=== PATIENT | female | born 1980 | race Caucasian/White ===

== ENCOUNTER 2020-09-29 16:44 | Emergency (ER) | payer SELFPAY ==
[2020-09-29] MEDS: HALOPERIDOL 5 MG/ML VIAL 10 MG IM (17:04)
[2020-09-29] MEDS: LORazepam 2 MG/ML INJ IM (17:05)
[2020-09-29] MEDS: diphenhydrAMINE 50 MG/ML VIAL IM (17:05)
[2020-09-29 17:18] VITALS: BP 99/54; PULSE 75; RESP 18; TEMP 37.1; O2SAT 97
[2020-09-29 17:22] LABS: Add Manual Diff / Slide Review NO; Basophils Absolute Auto 100 /uL (0-100); Basophils Percent Auto 0.9 % (0-2); Eosinophils Absolute Auto 200 /uL (0-450); Eosinophils Percent Auto 2.3 % (2-4); Hematocrit 37.4 % (36-46); Hemoglobin 12.4 g/dL (12.0-16.0); Lymphocytes Absolute Auto 2000 /uL (1100-4500); Lymphocytes Percent Auto 29.6 % (25-40); Mean Corpuscular HGB Conc 33.2 % (30-36); Mean Corpuscular Hemoglobin 29.5 PG (26-34); Monocytes Absolute Auto 400 /uL (0-900); Monocytes Percent Auto 6.6 % (3-14); Neutrophils Absolute Auto 4100 /uL (1500-7000); Neutrophils Percent Auto 60.6 % (50-75); Platelet Count 407 X10^3/uL (150-400); Red Cell Distribution Width 14.2 % (11.6-14.8); White Blood Cell Count 6.8 X10^3/uL (4.5-11.0)
[2020-09-29 17:26] LABS: UR Morphine/Opiate cutoff 300 Negative (Negative); Ur Creatinine Normal (Normal); Ur Specific Gravity Normal (Normal); Urine Amphetamines Positive (Negative); Urine Barbiturates Negative (Negative); Urine Benzodiazepines Negative (Negative); Urine Cocaine Negative (Negative); Urine MDMA Negative (Negative); Urine Methadone Negative (Negative); Urine Methamphetamines Positive (Negative); Urine Oxycodone Negative (Negative); Urine Phencyclidine Negative (Negative); Urine Tetrahydrocannabinol Negative (Negative); Urine Tricyclic Antidepressant Negative (Negative); Urine pH Normal (Normal)
[2020-09-29 17:34] LABS: Acetaminophen < 10 ug/mL (10-30); Alanine Aminotransferase 29 IU/L (<35); Albumin 4.1 g/dL (3.5-5.0); Albumin Globulin Ratio 1.4 (1.0-2.8); Alkaline Phosphatase 68 U/L (38-126); Aspartate Aminotransferase 38 IU/L (14-36); BUN Creatinine Ratio 29.5 (6-22); Bilirubin Total 0.7 mg/dL (0.2-1.3); Blood Urea Nitrogen 18 mg/dL (7-17); Calcium 9.1 mg/dL (8.4-10.2); Carbon Dioxide 26 mmol/L (22-32); Chloride 107 mmol/L (98-107); Estimated Glomerular Filt Rate > 60.0 mL/min (>60); Ethanol (ETOH) < 10 mg/dL; Globulin 2.9 g/dL (1.7-4.1); Glucose 111 mg/dL (70-100); HEMOLYSIS < 15 (0-50); Potassium 4.2 mmol/L (3.4-5.1); Salicylate < 1.0 mg/dL (<20); Sodium 139 mmol/L (137-145)
--- NOTE | 2020-09-29 17:46 | PC.NURSE ---
Pt continued to yell in room unitelligable, jumping around, eyes were unfocused and difficult to gain her attention. Disoriented to time but oriented to place hospital in [place] and person. Medicated w/ benedryl, haldol and ativan for patient safety. Currently laying on left side, easy work of breathing, pink/warm/dry.
[2020-09-29 17:50] LABS: Free T4, Direct Thyroxine 0.96 ng/dL (0.78-2.19)
[2020-09-29 18:04] LABS: Thyroid Stimulating Hormone 4.19 uIU/mL (0.47-4.68)
[2020-09-29 18:06] LABS: COVID19 -Nasal RAPID Negative (Negative)
--- NOTE | 2020-09-29 21:11 | PC.NURSE ---
DCR here speaking with pt
--- NOTE | 2020-09-29 21:16 | ED_ITS ---
HPI - General Adult <Isaiah Capps DO - Last Filed: 09/30/20 18:52> General Chief complaint: Altered Mental Status Stated complaint: Psych Eval Time Seen by Provider: 09/29/20 16:52 Source: police Mode of arrival: other History of Present Illness HPI narrative: Patient is a 40-year-old female. She is well known in the community. She has a history of schizophrenia. Is homeless. Is frequently seen walking around the town. Patient was brought to the emergency department today by police after they were called because the patient has been running in and out of traffic today. Has a known history of drug abuse specifically methamphetamine. Upon arrival patient was combative. Per the provider who initially saw her she was doing ?karate moves ?in the exam room. Due to the patient's clinical presentation it was felt that she needed sedation. Patient did seem to be directable in she stated that she was okay with receiving medications. She received Benadryl house on Ativan. Subsequently laid down in the room and has been sleeping. Related Data Home Medications Medication Instructions Recorded Confirmed Unobtainable 09/29/20 09/29/20 Allergies Allergy/AdvReac Type Severity Reaction Status Date / Time No Allergy Information Allergy Verified 09/29/20 16:51 Available Review of Systems <Isaiah Capps DO - Last Filed: 09/30/20 18:52> Review of Systems ROS Unobtainable: Unobtainable due to mental condition Patient History <Isaiah Capps DO - Last Filed: 09/30/20 18:52> Medical History Drug abuse Schizophrenia Social History Smoking Status: Smoker, status unknown Smoking Status: Smoker, status unknown alcohol intake frequency: other Substance Use Type: unknown Exam <Isaiah Capps DO - Last Filed: 09/30/20 18:52> Initial Vital Signs Initial Vital Signs: Vital Signs Temperature 98.8 F 09/29/20 17:18 Pulse Rate 75 09/29/20 17:18 Respiratory Rate 18 09/29/20 17:18 Blood Pressure 99/54 L 09/29/20 17:18 Pulse Oximetry 97 09/29/20 17:18 Const General: combative and disheveled HENMT Head: normal to inspection and normocephalic Resp Effort & Inspection: normal respiratory effort Cardio Rate: regular rate GI Inspection: normal to inspection Skin Other: Dirty Neuro General: patient awake and moves all extremities Extrem General: normal to inspection Psych Appearance: disheveled Speech and Movement: restless Mood: manic mood and labile mood Affect: animated <Kaela Watkins DO - Last Filed: 09/30/20 11:14> Initial Vital Signs Initial Vital Signs: Vital Signs Temperature 98.8 F 09/29/20 17:18 Pulse Rate 75 09/29/20 17:18 Respiratory Rate 18 09/29/20 17:18 Blood Pressure 99/54 L 09/29/20 17:18 Pulse Oximetry 97 09/29/20 17:18 Course <Isaiah Capps DO - Last Filed: 09/30/20 18:52> Orders Ordered: Discontinued Medications Diphenhydramine HCl (Diphenhydramine 50 Mg/Ml Vial) 50 mg IM NOW ONE Stop: 09/29/20 16:56 Last Admin: 09/29/20 17:05 Dose: 50 mg Documented by: AZEB Haloperidol (Haloperidol 5 Mg/Ml Vial) 10 mg IM NOW ONE Stop: 09/29/20 16:56 Last Admin: 09/29/20 17:04 Dose: 10 mg Documented by: AZEB Lorazepam (Lorazepam 2 Mg/Ml Inj) 2 mg IM NOW ONE Stop: 09/29/20 16:56 Last Admin: 09/29/20 17:05 Dose: 2 mg Documented by: AZEB Vital Signs Vital signs: Vital Signs - 8 hr 09/30/20 10:11 Pulse Rate 74 Respiratory Rate 14 Blood Pressure 121/74 Pulse Oximetry 95 <Kaela Watkins DO - Last Filed: 09/30/20 11:14> Orders Ordered: Discontinued Medications Diphenhydramine HCl (Diphenhydramine 50 Mg/Ml Vial) 50 mg IM NOW ONE Stop: 09/29/20 16:56 Last Admin: 09/29/20 17:05 Dose: 50 mg Documented by: AZEB Haloperidol (Haloperidol 5 Mg/Ml Vial) 10 mg IM NOW ONE Stop: 09/29/20 16:56 Last Admin: 09/29/20 17:04 Dose: 10 mg Documented by: AZEB Lorazepam (Lorazepam 2 Mg/Ml Inj) 2 mg IM NOW ONE Stop: 09/29/20 16:56 Last Admin: 09/29/20 17:05 Dose: 2 mg Documented by: AZEB Vital Signs Vital signs: Vital Signs - 8 hr 09/30/20 10:11 Pulse Rate 74 Respiratory Rate 14 Blood Pressure 121/74 Pulse Oximetry 95 Medical Decision Making <Isaiah Capps DO - Last Filed: 09/30/20 18:52> Lab Data Result diagrams: 09/29/20 17:12 09/29/20 17:12 Labs: Lab Results 09/29/20 09/29/20 09/29/20 Range/Units 16:51 17:12 17:12 WBC 6.8 (4.5-11.0) X10^3/uL RBC 4.20 (4.0-5.2) X10^6/uL Hgb 12.4 (12.0-16.0) g/dL Hct 37.4 (36-46) % MCV 89.0 (80-100) fL MCH 29.5 (26-34) PG MCHC 33.2 (30-36) % RDW 14.2 (11.6-14.8) % Plt Count 407 H (150-400) X10^3/uL Neut % (Auto) 60.6 (50-75) % Lymph % (Auto) 29.6 (25-40) % [place] % (Auto) 6.6 (3-14) % Eos % (Auto) 2.3 (2-4) % Baso % (Auto) 0.9 (0-2) % Neut # (Auto) 4100 (8749-7794) /uL Lymph # (Auto) 2000 (2819-7840) /uL [place] # (Auto) 400 (0-900) /uL Eos # (Auto) 200 (0-450) /uL Baso # (Auto) 100 (0-100) /uL Sodium 139 (137-145) mmol/L Potassium 4.2 (3.4-5.1) mmol/L Chloride 107 (98-107) mmol/L Carbon Dioxide 26 (22-32) mmol/L BUN 18 H (7-17) mg/dL Creatinine 0.61 (0.52-1.04) mg/dL Estimated GFR > 60.0 (>60) mL/min BUN/Creatinine Ratio 29.5 H (6-22) Glucose 111 H (70-100) mg/dL Calcium 9.1 (8.4-10.2) mg/dL Total Bilirubin 0.7 (0.2-1.3) mg/dL AST 38 H (14-36) IU/L ALT 29 (<35) IU/L Alkaline Phosphatase 68 (38-126) U/L Total Protein 7.0 (6.3-8.2) g/dL Albumin 4.1 (3.5-5.0) g/dL Globulin 2.9 (1.7-4.1) g/dL Albumin/Globulin Ratio 1.4 (1.0-2.8) TSH (0.47-4.68) uIU/mL Free T4 (0.78-2.19) ng/dL Salicylates < 1.0 (<20) mg/dL U Opiates 300ng/mL cut Negative (Negative) Ur Oxycodone Screen Negative (Negative) Urine Methadone Screen Negative (Negative) Acetaminophen < 10 L (10-30) ug/mL Ur Barbiturates Screen Negative (Negative) U Tricyclic Antidepress Negative (Negative) Ur Phencyclidine Scrn Negative (Negative) Ur Amphetamines Screen Positive H (Negative) U Methamphetamines Scrn Positive H (Negative) Ur MDMA Scrn (Ecstasy) Negative (Negative) U Benzodiazepines Scrn Negative (Negative) Urine Cocaine Screen Negative (Negative) U Marijuana (THC) Screen Negative (Negative) Ethyl Alcohol < 10 ( - 10) mg/dL SARS-CoV-2 (PCR) (Negative) 09/29/20 09/29/20 Range/Units 17:12 17:40 WBC (4.5-11.0) X10^3/uL RBC (4.0-5.2) X10^6/uL Hgb (12.0-16.0) g/dL Hct (36-46) % MCV (80-100) fL MCH (26-34) PG MCHC (30-36) % RDW (11.6-14.8) % Plt Count (150-400) X10^3/uL Neut % (Auto) (50-75) % Lymph % (Auto) (25-40) % [place] % (Auto) (3-14) % Eos % (Auto) (2-4) % Baso % (Auto) (0-2) % Neut # (Auto) (4468-3698) /uL Lymph # (Auto) (2812-0000) /uL [place] # (Auto) (0-900) /uL Eos # (Auto) (0-450) /uL Baso # (Auto) (0-100) /uL Sodium (137-145) mmol/L Potassium (3.4-5.1) mmol/L Chloride (98-107) mmol/L Carbon Dioxide (22-32) mmol/L BUN (7-17) mg/dL Creatinine (0.52-1.04) mg/dL Estimated GFR (>60) mL/min BUN/Creatinine Ratio (6-22) Glucose (70-100) mg/dL Calcium (8.4-10.2) mg/dL Total Bilirubin (0.2-1.3) mg/dL AST (14-36) IU/L ALT (<35) IU/L Alkaline Phosphatase (38-126) U/L Total Protein (6.3-8.2) g/dL Albumin (3.5-5.0) g/dL Globulin (1.7-4.1) g/dL Albumin/Globulin Ratio (1.0-2.8) TSH 4.19 (0.47-4.68) uIU/mL Free T4 0.96 (0.78-2.19) ng/dL Salicylates (<20) mg/dL U Opiates 300ng/mL cut (Negative) Ur Oxycodone Screen (Negative) Urine Methadone Screen (Negative) Acetaminophen (10-30) ug/mL Ur Barbiturates Screen (Negative) U Tricyclic Antidepress (Negative) Ur Phencyclidine Scrn (Negative) Ur Amphetamines Screen (Negative) U Methamphetamines Scrn (Negative) Ur MDMA Scrn (Ecstasy) (Negative) U Benzodiazepines Scrn (Negative) Urine Cocaine Screen (Negative) U Marijuana (THC) Screen (Negative) Ethyl Alcohol ( - 10) mg/dL SARS-CoV-2 (PCR) Negative (Negative) Point of Care Testing Test Results Negative Urine Dip Bedside Urine Glucose Negative Bedside Urine Bilirubin - Negative Bedside Urine Ketone - Negative Urine Specific [place] 1.025 Bedside Urine Occult Blood - Negative Bedside Urine pH 6.5 Bedside Urine Protein - Negative Bedside Urine Urobilinogen - Negative Bedside Urine Nitrite - Negative Bedside Urine Leukocytes - Negative Esterase Point of care testing: Point of Care Testing Test Results Negative Urine Dip Bedside Urine Glucose Negative Bedside Urine Bilirubin - Negative Bedside Urine Ketone - Negative Urine Specific [place] 1.025 Bedside Urine Occult Blood - Negative Bedside Urine pH 6.5 Bedside Urine Protein - Negative Bedside Urine Urobilinogen - Negative Bedside Urine Nitrite - Negative Bedside Urine Leukocytes - Negative Esterase MDM Narrative Medical decision making narrative: Patient's urine drug screen is positive for methamphetamine. She has been calm since receiving the medications. She is medically cleared. No respiratory distress. No signs of trauma. The patient has remained calm and has been sleeping. We did discuss the case with DCR. Given the fact that she had methamphetamine in her urine they requested that the patient be observed overnight and re-evaluated in the morning to see if she would still require evaluation. We also discussed the possibility of using Wilmer's law given her current situation however after discussion with the DCR it was determined that since there are no prior encounters for this patient and there has not been a ?pattern ?of substance abuse causing multiple ED visits that she would not be a candidate for this. Care turned over to Dr. Watkins to follow-up and disposition. <Kaela Watkins, DO - Last Filed: 09/30/20 11:14> Lab Data Labs: Lab Results 09/29/20 09/29/20 09/29/20 Range/Units 16:51 17:12 17:12 WBC 6.8 (4.5-11.0) X10^3/uL RBC 4.20 (4.0-5.2) X10^6/uL Hgb 12.4 (12.0-16.0) g/dL Hct 37.4 (36-46) % MCV 89.0 (80-100) fL MCH 29.5 (26-34) PG MCHC 33.2 (30-36) % RDW 14.2 (11.6-14.8) % Plt Count 407 H (150-400) X10^3/uL Neut % (Auto) 60.6 (50-75) % Lymph % (Auto) 29.6 (25-40) % [place] % (Auto) 6.6 (3-14) % Eos % (Auto) 2.3 (2-4) % Baso % (Auto) 0.9 (0-2) % Neut # (Auto) 4100 (2822-8004) /uL Lymph # (Auto) 2000 (6840-1978) /uL [place] # (Auto) 400 (0-900) /uL Eos # (Auto) 200 (0-450) /uL Baso # (Auto) 100 (0-100) /uL Sodium 139 (137-145) mmol/L Potassium 4.2 (3.4-5.1) mmol/L Chloride 107 (98-107) mmol/L Carbon Dioxide 26 (22-32) mmol/L BUN 18 H (7-17) mg/dL Creatinine 0.61 (0.52-1.04) mg/dL Estimated GFR > 60.0 (>60) mL/min BUN/Creatinine Ratio 29.5 H (6-22) Glucose 111 H (70-100) mg/dL Calcium 9.1 (8.4-10.2) mg/dL Total Bilirubin 0.7 (0.2-1.3) mg/dL AST 38 H (14-36) IU/L ALT 29 (<35) IU/L Alkaline Phosphatase 68 (38-126) U/L Total Protein 7.0 (6.3-8.2) g/dL Albumin 4.1 (3.5-5.0) g/dL Globulin 2.9 (1.7-4.1) g/dL Albumin/Globulin Ratio 1.4 (1.0-2.8) TSH (0.47-4.68) uIU/mL Free T4 (0.78-2.19) ng/dL Salicylates < 1.0 (<20) mg/dL U Opiates 300ng/mL cut Negative (Negative) Ur Oxycodone Screen Negative (Negative) Urine Methadone Screen Negative (Negative) Acetaminophen < 10 L (10-30) ug/mL Ur Barbiturates Screen Negative (Negative) U Tricyclic Antidepress Negative (Negative) Ur Phencyclidine Scrn Negative (Negative) Ur Amphetamines Screen Positive H (Negative) U Methamphetamines Scrn Positive H (Negative) Ur MDMA Scrn (Ecstasy) Negative (Negative) U Benzodiazepines Scrn Negative (Negative) Urine Cocaine Screen Negative (Negative) U Marijuana (THC) Screen Negative (Negative) Ethyl Alcohol < 10 ( - 10) mg/dL SARS-CoV-2 (PCR) (Negative) 09/29/20 09/29/20 Range/Units 17:12 17:40 WBC (4.5-11.0) X10^3/uL RBC (4.0-5.2) X10^6/uL Hgb (12.0-16.0) g/dL Hct (36-46) % MCV (80-100) fL MCH (26-34) PG MCHC (30-36) % RDW (11.6-14.8) % Plt Count (150-400) X10^3/uL Neut % (Auto) (50-75) % Lymph % (Auto) (25-40) % [place] % (Auto) (3-14) % Eos % (Auto) (2-4) % Baso % (Auto) (0-2) % Neut # (Auto) (7484-0111) /uL Lymph # (Auto) (5834-3171) /uL [place] # (Auto) (0-900) /uL Eos # (Auto) (0-450) /uL Baso # (Auto) (0-100) /uL Sodium (137-145) mmol/L Potassium (3.4-5.1) mmol/L Chloride (98-107) mmol/L Carbon Dioxide (22-32) mmol/L BUN (7-17) mg/dL Creatinine (0.52-1.04) mg/dL Estimated GFR (>60) mL/min BUN/Creatinine Ratio (6-22) Glucose (70-100) mg/dL Calcium (8.4-10.2) mg/dL Total Bilirubin (0.2-1.3) mg/dL AST (14-36) IU/L ALT (<35) IU/L Alkaline Phosphatase (38-126) U/L Total Protein (6.3-8.2) g/dL Albumin (3.5-5.0) g/dL Globulin (1.7-4.1) g/dL Albumin/Globulin Ratio (1.0-2.8) TSH 4.19 (0.47-4.68) uIU/mL Free T4 0.96 (0.78-2.19) ng/dL Salicylates (<20) mg/dL U Opiates 300ng/mL cut (Negative) Ur Oxycodone Screen (Negative) Urine Methadone Screen (Negative) Acetaminophen (10-30) ug/mL Ur Barbiturates Screen (Negative) U Tricyclic Antidepress (Negative) Ur Phencyclidine Scrn (Negative) Ur Amphetamines Screen (Negative) U Methamphetamines Scrn (Negative) Ur MDMA Scrn (Ecstasy) (Negative) U Benzodiazepines Scrn (Negative) Urine Cocaine Screen (Negative) U Marijuana (THC) Screen (Negative) Ethyl Alcohol ( - 10) mg/dL SARS-CoV-2 (PCR) Negative (Negative) Point of Care Testing Test Results Negative Urine Dip Bedside Urine Glucose Negative Bedside Urine Bilirubin - Negative Bedside Urine Ketone - Negative Urine Specific [place] 1.025 Bedside Urine Occult Blood - Negative Bedside Urine pH 6.5 Bedside Urine Protein - Negative Bedside Urine Urobilinogen - Negative Bedside Urine Nitrite - Negative Bedside Urine Leukocytes - Negative Esterase Point of care testing: Point of Care Testing Test Results Negative Urine Dip Bedside Urine Glucose Negative Bedside Urine Bilirubin - Negative Bedside Urine Ketone - Negative Urine Specific [place] 1.025 Bedside Urine Occult Blood - Negative Bedside Urine pH 6.5 Bedside Urine Protein - Negative Bedside Urine Urobilinogen - Negative Bedside Urine Nitrite - Negative Bedside Urine Leukocytes - Negative Esterase MDM Narrative Medical decision making narrative: Patient's urine drug screen is positive for methamphetamine. She has been calm since receiving the medications. She is medically cleared. No respiratory distress. No signs of trauma. The patient has remained calm and has been sleeping. We did discuss the case with DCR. Given the fact that she had methamphetamine in her urine they requested that the patient be observed overnight and re-evaluated in the morning to see if she would still require evaluation. We also discussed the possibility of using Wilmer's law given her current situation however after discussion with the DCR it was determined that since there are no prior encounters for this patient and there has not been a ?pattern ?of substance abuse causing multiple ED visits that she would not be a candidate for this. Care turned over to Dr. Watkins to follow-up and disposition. Dr. Watkins-attempted to wake the patient but still sleeping. The patient woke up. She eating breakfast. At is feeling overall better. She is offered community sources and detox options however she declines at this time and would just like to go. She denies any suicidal or homicidal ideation Discharge Plan Departure Patient Disposition: Home Clinical Impression: Methamphetamine abuse Instructions: DI for Substance Use Disorder Activity Restrictions/Additional Instructions: *You have been diagnosed with methamphetamine be *What to do: At this time methamphetamine is not likely helping schizophrenia. *Continue to take medications as directed *Follow up with your primary care provider in 2-3 days *Return to ER if you should have hallucination, thoughts of suicide [or] any new, worsening or concerning symptoms Prescriptions: No Action Unobtainable RF: 0 Referrals: Ele Rodgers MD [Primary Care Provider] -
[2020-09-29 22:17] VITALS: BP 97/51; PULSE 66; RESP 18; TEMP 36.7; O2SAT 99
--- NOTE | 2020-09-29 22:25 | PC.NURSE ---
NIMISHA called and arranged a DCR rep to be sent to [facility]. Spoke with Cassidy
--- NOTE | 2020-09-30 02:16 | PC.NURSE ---
Called [facility] with questions about Wilmer law. [facility] stated They can put in for request for wilmer law and DCR will come make the decision. Placed request for pt to be evaluated for wilmer's law
--- NOTE | 2020-09-30 10:00 | PC.NURSE ---
Pt arousable to voice, breakfast reheated and coffee given per pt request. Pt calm, appropriate, interactive, sitting in bed eating.
--- NOTE | 2020-09-30 10:10 | PC.NURSE ---
Dr. Watkins at bedside to medically clear pt and discharge
[2020-09-30 10:11] VITALS: BP 121/74; PULSE 74; RESP 14; O2SAT 95
== END 2020-09-30 10:14 | disposition home or self-care (01) ==
PROVIDERS: Emergency Provider Emergency Medicine; Family Provider Family Medicine; PCP Family Medicine
DX: F15.10 Other stimulant abuse, uncomplicated (principal); Z20.822 Contact with and (suspected) exposure to COVID-19
CPT/HCPCS: 36415; 80053; 80305; 80320; 80329; 81003; 81025; 84439; 84443; 85025; 87635; 96372; 99284; C9803; G0480; J1200; J1630; J2060

== ENCOUNTER 2021-08-10 19:15 | Emergency (ER) | payer OTHER, MEDICAID, SELFPAY ==
--- NOTE | 2021-08-10 19:05 | PC.NURSE ---
Pt brought in by EMS for pt requested eval following meth use. Pt has Hx of schizophrenia. Pt arrives to ER yelling and frantically waving her arms. Pt repeatedly yelling let me go. I need meds now! I don't feel safe! I don't feel fucking safe!. Pt unable to follow even simple directions from staff and is walking in and out of her room. ER providers at bedside of pt, security present as well. Pt not able to calm down despite various de-escalation modalities being used. Pt was offered PO medications for anxiety but refused. Pt to be given IM injection to de-escalate.
[2021-08-10] MEDS: diphenhydrAMINE 50 MG/ML VIAL IM (19:14)
[2021-08-10] MEDS: LORazepam 2 MG/ML INJ IM (19:14)
[2021-08-10] MEDS: HALOPERIDOL 5 MG/ML VIAL IM (19:14)
--- NOTE | 2021-08-10 19:14 | PC.NURSE ---
Given IM left VL B52. Administered by Precious THOMPSON
--- NOTE | 2021-08-10 19:41 | ED_ITS ---
HPI - Psych General Chief Complaint: Psychiatric Symptoms Stated Complaint: psych Time Seen by Provider: 08/10/21 19:26 Source: EMS Mode of arrival: EMS History of Present Illness HPI Narrative: 41-year-old female with a known history of smoking or drinking but known history of mental health and substance abuse presents by EMS after they were contacted for this patient that was acting abnormally. She has a very poor historian and is yelling, screaming with auditory and visual hallucinations and pacing. She is afraid that people are trying to kill her. She denies any recent injury. She denies the use of any alcohol, street drugs. It is unknown if she has been taking any of her medications. She does not respond when asked about suicidal or homicidal ideation. She is speaking rapidly, and unable to redirect, she keeps trying to leave the room Related Data Home Medications Medication Instructions Recorded Confirmed Unobtainable 09/29/20 09/29/20 Allergies Allergy/AdvReac Type Severity Reaction Status Date / Time No Allergy Information Allergy Verified 09/29/20 16:51 Available Review of Systems Review of Systems ROS Unobtainable: Unobtainable due to mental condition Patient History Medical History Drug abuse Schizophrenia Social History Smoking Status: Smoker, status unknown Smoking Status: Smoker, status unknown alcohol intake frequency: other Substance Use Type: methamphetamine and unknown Exam Narrative Exam Narrative: GENERAL: [41 year old patient appears stated age. Slightly disheveled, foul- smelling, pacing in the room, rapid nonsensical speech, unable to redirect HEAD: Atraumatic. Normocephalic. EYES: Pupils equal round and reactive. Extraocular motions intact. No scleral icterus. No injection or drainage. ENT: Nose without bleeding, purulent drainage. Throat without erythema, tonsillar hypertrophy or exudate. Airway patent. NECK: Trachea midline. Non tender CARDIOVASCULAR: Regular rate and rhythm without murmurs, gallops, or rubs. RESPIRATORY: Clear to auscultation. Breath sounds equal bilaterally. No wheezes, rales, or rhonchi. GASTROINTESTINAL: Abdomen soft, non-tender, nondistended. EXTREMITIES: No edema or joint tenderness. BACK: Nontender without deformity or crepitance. No flank tenderness. NEURO: Cranial nerves 2-12 grossly intact SKIN: No rash or erythema of visible areas Initial Vital Signs Initial Vital Signs: Vital Signs Respiratory Rate 08/10/21 19:43 Course Orders Ordered: Discontinued Medications Diphenhydramine HCl (Diphenhydramine 50 Mg/Ml Vial) 50 mg IM NOW ONE Stop: 08/10/21 19:08 Last Admin: 08/10/21 19:14 Dose: 50 mg Documented by: SHIRLEY Haloperidol (Haloperidol 5 Mg/Ml Vial) 5 mg IM NOW ONE Stop: 08/10/21 19:08 Last Admin: 08/10/21 19:14 Dose: 5 mg Documented by: SHIRLEY Lorazepam (Lorazepam 2 Mg/Ml Inj) 2 mg IM NOW ONE Stop: 08/10/21 19:08 Last Admin: 08/10/21 19:14 Dose: 2 mg Documented by: SHIRLEY Vital Signs Vital signs: Vital Signs - 8 hr 08/11/21 08:18 Temperature 97.9 F Pulse Rate 86 Respiratory Rate 20 Blood Pressure 144/86 H Pulse Oximetry 98 MDM - Psych Lab Data Result diagrams: 08/10/21 20:23 08/10/21 20:23 Labs: Lab Results 08/10/21 08/10/21 08/10/21 Range/Units 20:23 20:23 20:23 WBC 5.8 (4.5-11.0) X10^3/uL RBC 3.65 L (4.0-5.2) X10^6/uL Hgb 10.7 L (12.0-16.0) g/dL Hct 31.3 L (36-46) % MCV 85.7 (80-100) fL MCH 29.4 (26-34) PG MCHC 34.3 (30-36) % RDW 13.7 (11.6-14.8) % Plt Count 371 (150-400) X10^3/uL Neut % (Auto) 74.1 (50-75) % Lymph % (Auto) 17.7 L (25-40) % [place] % (Auto) 6.4 (3-14) % Eos % (Auto) 1.0 L (2-4) % Baso % (Auto) 0.8 (0-2) % Neut # (Auto) 4300 (2983-0612) /uL Lymph # (Auto) 1000 L (7078-5065) /uL [place] # (Auto) 400 (0-900) /uL Eos # (Auto) 100 (0-450) /uL Baso # (Auto) 0 (0-100) /uL Sodium 139 (137-145) mmol/L Potassium 3.7 (3.4-5.1) mmol/L Chloride 106 (98-107) mmol/L Carbon Dioxide 28 (22-32) mmol/L BUN 18 H (7-17) mg/dL Creatinine 0.66 (0.52-1.04) mg/dL Estimated GFR > 60 (>60) mL/min BUN/Creatinine Ratio 27.3 H (6-22) Glucose 111 H (70-100) mg/dL Calcium 8.0 L (8.4-10.2) mg/dL Total Bilirubin 0.2 (0.2-1.3) mg/dL AST 18 (14-36) IU/L ALT 9 (<35) IU/L Alkaline Phosphatase 53 (38-126) U/L Total Protein 6.6 (6.3-8.2) g/dL Albumin 3.8 (3.5-5.0) g/dL Globulin 2.8 (1.7-4.1) g/dL Albumin/Globulin Ratio 1.4 (1.0-2.8) Serum , Qual Negative (Negative) Ethyl Alcohol < 10 ( - 10) mg/dL MDM Narrative Medical decision making narrative: patient initially presented by EMS and was acutely psychotic and had become a danger to herself, after medication patient rested comfortably and without incident for many hours. Upon waking this morning she was no longer having hallucinations, she was alert and at her baseline. She was not having suicidal or homicidal ideations. I offered to keep her until social Work did come for evaluation the patient stated she wanted to leave. She has access to her medications and understands return precautions. Restraint Ivgg-wc-Tmpz Restraint Cgrf-mj-Osex Evaluation Ikcj-fs-Fzln #1: Time: 19:44 Patient Appearance: Unkempt, Disheveled and Bizarre Level of Consciousness: Alert, Disoriented, Inappropriate and Restless Speech Pattern: Animated, Perseverating, Pressured and Rambling Mood Description: Anxious and Fearful Ability to Follow Directions: Poor Hallucination Type: Auditory and Visual Respirations: Normal respiratory rate Cardiac: Regular Rate Circulation: Moves all extremities Behavior necessitating restraint: Agitated, Confusion, Escalating verbal abuse and Paranoid/Delusional Restraint Risks: Airway obstruction, Restricted blood flow, Damaged nerves and Damaged tissue Restraint risks explained to patient: Yes Restraint risks explained to family: No Reaction to Intervention: Awake, Resting Quietly Additional Comments: Initially multiple attempts at verbal deescalation were unsuccessful. Patient was asking her for medication to help but refused any orals and demanded we give her a shot. Medications were given Discharge Plan Departure Patient Disposition: Home Clinical Impression: Acute psychosis Instructions: DI for Schizophrenia Activity Restrictions/Additional Instructions: *You have been diagnosed with [acute psychosis, resolved, likely from methamphetamine abuse *What to do: *Please continue to take your regular medications as directed. [ ] New medication prescriptions sent to your pharmacy: [ ] [ ] New medication written as a paper prescription [x ] No new medications given *Please follow up with your primary care provider in 2-3 days, call for an appointment. Let them know you were seen in the Emergency Department and that we ask that you be seen in follow up. We will electronically transmit a record of today's note if your PCP is in our system *If you do not have a primary care provider please contact the [facility] Resource line at [phone]. They will ask some questions about your medical history and help get you set up with a doctor in the community. *Return to Emergency Department if you should have any new, worsening or concerning symptoms, such as [fever greater than 101 F, shaking chills, worsening pain, persistent vomiting or other bothersome symptoms] Prescriptions: No Action Unobtainable 0RF Referrals: Ele Rodgers MD [Primary Care Provider] -
[2021-08-10 19:43] VITALS: RESP 20
--- NOTE | 2021-08-10 20:11 | CM.SWNOTE ---
PRODUCT LISTER Assessment PRODUCT LISTER - Primary Care Provider Assessment PRODUCT LISTER/Primary Care Provider Assessment Time Spent with Patient Start date 08/10/21 Visit Start Time 19:00 End date 08/10/21 Visit End Time 19:25 Total time Care Management spent on 25 minutes patient visit-in minutes Mental Health Screening Include Onset, Duration, Intensity Presenting Problem Patient presents to ED via EMS unwillingly. Patient presents responding to internal stimuli, reporting fear for her safety responding to visual and auditory hallucinations. Precipitating Event(s) Patient has a hx of Schizophrenia and methamphetamine use. Patient is a local resident in [facility]. Patient Strengths Patient feels safe with at least two staff members near her. Current Behavioral Health Provider(s) Unknown Include Facility, Provider, Ph. # Psych. Hx Mental Health and Chemical Patient has hx of Dependency Schizophrenia and Methamphetamine use. Family Hx of Behavioral Abuse Unknown Psychiatric Hospitalizations (date(s)/ Per Peyton: location) patient was inpatient at [facility] from 02/19/21-03/01/21 patient was inpatient at [facility] from 01/09/21-01/25/21 patient was inpatient at [facility] from 12/14/20-12/18/20 Psychosocial information & Support Patient is 41 y/o female who Systems is currently homeless in the [facility] area. Patient has mother listed as contact, it is unknown how patient is supported by mother at this time. School/Work Unknown Legal Concerns Legal Matters - Outstanding Issues Unknown Mental Status Orientation (Person/Place/Time) A/O to self and person Stated Mood Scared I don't feel safe Affect (Congruent with Mood?) euphoric,labile, congruent with mood Thought Content - Specify/Describe Patient presents responding to Obsessions, Delusions, Hallucinations internal stimuli and paranoid for her safety. Patient makes statements that someone named Jessa is in the room trying to stab her and assault her sexually. Patient yells I feel a knife, Jessa will stab me, I'm scared... Thought Processes (Gfnaibf-Sppobwfv-Eixb Thought blocking, disorganized Udavsidt-Kziuywrm-Ncspnimoif- Adkhozigfwgapd-Neljcoa-Tkazztaxwexs- Thought Blocking) Speech (Hkieag-Olgs-Ewmdhpp-Rapid-Soft- Rapid, loud and pressured Loud-Pressured) Motor (Xyppuh-Lpnznzwlt-Kyje-Other) excessive, patient trying to leave room, standing and walking around. Patient in need of coaxing to settle to a seated position on the bed on floor. Insight (Hamd-Hbfz-Hqov/Limited) poor Judgement (Ecjm-Mifa-Momi/Limited) poor Impulse Control (Adequate-Impaired) impaired Memory (Ojbbqmgpi-Xhzwjt-Izzcyn, impaired, unable to formally Impaired-Intact) assess Concentration (Intact-Impaired) impaired Attention (Intact-Impaired) impaired Behavior (Appropriate-Inappropriate) Patient does not try to harm staff, tries to leave hospital room by asking first. Patient is loud and eventually redirected with continuous coaxing. Additional Comment Patient presents with darker tone of foundation make up on face, disheveled hair in 3 pig tails, dirt on clothes and feet and without shoes on. Risk Assessment Comment Unable to assess and ask questions formally. Patient endorses fear for safety and indicates she does not want to from her statements in response to internal stimuli. Intervention Intervention PRODUCT LISTER enters room to meet with patient. Patient verbally requests to have other ED staff in room to protect patient and reassure her of her safety. Patient presents as labile, euphoric and responding to internal stimuli. Patient has known history of Schizophrenia and Methamphetamine use. It is unknown at this time the results of patient's toxicology screening and patient has yet to provide a urine sample. Patient states that people in the room are trying to stab her, and continuously states she feels unsafe. Patient makes repetitive clicking loud sound when feeling increasingly paranoid or anxious. Patient states the names Juliet and Jessa in reference to people in the room trying to harm her. Patient presents as increasingly upset when presented with internal stimuli that someone is trying to stab her with a knife. It is unknown at this time if patient is a harm to herself and others. At this time patient is not medically clear . As prescribed from ED provider , patient is administered medical intervention of Benadryl, Haldol and Ativan It is the opinion of this PRODUCT LISTER that patient may be appropriate for DCR assessment once medically clear, or patient can be further assessed with d/c to the community once patient returns to baseline and deemed safe by ED provider for d/c. PRODUCT LISTER reviews the above with ED provider Dr. Dupree who indicates that he will assess patient overnight and determine patient's plan of care. Plan RA Plan Plan of care pending patient's medical clearance. LU RogersSW
--- NOTE | 2021-08-10 20:25 | PC.NURSE ---
Labs drawn, pt remained calm.
[2021-08-10 20:39] LABS: Add Manual Diff / Slide Review NO; Basophils Absolute Auto 0 /uL (0-100); Basophils Percent Auto 0.8 % (0-2); Eosinophils Absolute Auto 100 /uL (0-450); Hematocrit 31.3 % (36-46); Hemoglobin 10.7 g/dL (12.0-16.0); Lymphocytes Absolute Auto 1000 /uL (1100-4500); Lymphocytes Percent Auto 17.7 % (25-40); Mean Corpuscular HGB Conc 34.3 % (30-36); Mean Corpuscular Hemoglobin 29.4 PG (26-34); Mean Corpuscular Volume 85.7 fL (80-100); Monocytes Absolute Auto 400 /uL (0-900); Monocytes Percent Auto 6.4 % (3-14); Neutrophils Absolute Auto 4300 /uL (1500-7000); Neutrophils Percent Auto 74.1 % (50-75); Platelet Count 371 X10^3/uL (150-400); Red Blood Cell Count 3.65 X10^6/uL (4.0-5.2); Red Cell Distribution Width 13.7 % (11.6-14.8); White Blood Cell Count 5.8 X10^3/uL (4.5-11.0)
[2021-08-10 20:52] LABS: Alanine Aminotransferase 9 IU/L (<35); Albumin 3.8 g/dL (3.5-5.0); Albumin Globulin Ratio 1.4 (1.0-2.8); Alkaline Phosphatase 53 U/L (38-126); Aspartate Aminotransferase 18 IU/L (14-36); BUN Creatinine Ratio 27.3 (6-22); Bilirubin Total 0.2 mg/dL (0.2-1.3); Blood Urea Nitrogen 18 mg/dL (7-17); Carbon Dioxide 28 mmol/L (22-32); Chloride 106 mmol/L (98-107); Estimated Glomerular Filt Rate > 60 mL/min (>60); Ethanol (ETOH) < 10 mg/dL; Globulin 2.8 g/dL (1.7-4.1); Glucose 111 mg/dL (70-100); HEMOLYSIS < 15 (0-50); Potassium 3.7 mmol/L (3.4-5.1); Sodium 139 mmol/L (137-145); Total Protein 6.6 g/dL (6.3-8.2)
[2021-08-10 20:54] VITALS: BP 157/74; PULSE 101; RESP 22; TEMP 37.2; O2SAT 96
[2021-08-10 20:57] LABS: Pregnancy Test Serum,Qual Negative (Negative)
[2021-08-10 22:16] VITALS: RESP 20
[2021-08-11 08:18] VITALS: BP 144/86; PULSE 86; RESP 20; TEMP 36.6; O2SAT 98
--- NOTE | 2021-08-11 08:19 | PC.NURSE ---
pt denied any suicidal thoughts. denies hearing or seeing voices. states she has her medication and wants to go home.
== END 2021-08-11 08:22 | disposition home or self-care (01) ==
PROVIDERS: Emergency Provider Emergency Medicine; Family Provider Family Medicine; PCP Family Medicine
DX: F23 Brief psychotic disorder (principal)
CPT/HCPCS: 80053; 80320; 84703; 85025; 96372; 99285; J1200; J1630; J2060

== ENCOUNTER 2021-08-19 10:48 | Emergency (ER) | payer OTHER, MEDICAID, SELFPAY ==
--- NOTE | 2021-08-19 18:17 | ED.PSYCH ---
HPI - Psych General Stated Complaint: doesnt feel well Related Data Home Medications Medication Instructions Recorded Confirmed Unobtainable 09/29/20 09/29/20 Allergies Allergy/AdvReac Type Severity Reaction Status Date / Time No Allergy Information Allergy Verified 09/29/20 16:51 Available Patient History Medical History Drug abuse Schizophrenia Social History Smoking Status: Smoker, status unknown Smoking Status: Smoker, status unknown alcohol intake frequency: other Substance Use Type: methamphetamine and unknown Discharge Plan Departure Patient Disposition: Left Without Being Seen Clinical Impression: Patient left before triage assessment
== END 2021-08-19 13:18 | disposition left against medical advice (07) ==
PROVIDERS: Emergency Provider Emergency Medicine; Family Provider Family Medicine; PCP Family Medicine

== ENCOUNTER 2021-08-19 17:29 | Emergency (ER) | payer OTHER, MEDICAID, SELFPAY ==
[2021-08-19] VITALS (10 sets, daily range): BP systolic 90–107; BP diastolic 53–69; PULSE 83–117; RESP 16–24; O2SAT 97–99
[2021-08-19] MEDS: diphenhydrAMINE 50 MG/ML VIAL IM (18:06)
[2021-08-19] MEDS: LORazepam 2 MG/ML INJ IM (18:06)
[2021-08-19] MEDS: HALOPERIDOL 5 MG/ML VIAL IM (18:06)
[2021-08-19 18:21] LABS: Pregnancy Test Urine Negative (Negative)
--- NOTE | 2021-08-19 18:31 | ED.PSYCH ---
HPI - Psych General Chief Complaint: Psychiatric Symptoms Stated Complaint: Psych Time Seen by Provider: 08/19/21 17:56 Source: police Mode of arrival: other Limitations: altered mental status History of Present Illness HPI Narrative: Patient is a 41-year-old female. She is well known in the community. She is homeless, schizophrenia and methamphetamine induced issues to include psychosis. She has been in this emergency department in the past for these issues. She has also been in other local emergency department in the past for similar issues. It appears that her last emergency department visit was the end of last year. This reported that earlier today she was brought to the emergency department by a bystander. Patient was not seen/evaluated here in the emergency department but left without being seen. She returns to the emergency department today by EMS with police after it was found that she was running around the streets. Was walking down the middle of the street. Apparently trying to break into vehicles. Patient is unable to provide any HPI or review of systems. Related Data Home Medications Medication Instructions Recorded Confirmed Unobtainable 09/29/20 09/29/20 Allergies Allergy/AdvReac Type Severity Reaction Status Date / Time No Allergy Information Allergy Verified 09/29/20 16:51 Available Review of Systems Review of Systems ROS Unobtainable: Unobtainable due to mental condition Patient History Medical History Drug abuse Schizophrenia Social History Smoking Status: Smoker, status unknown Smoking Status: Smoker, status unknown alcohol intake frequency: other Substance Use Type: methamphetamine and unknown Exam Initial Vital Signs Initial Vital Signs: Vital Signs Pulse Rate 117 H 08/19/21 17:53 Respiratory Rate 24 08/19/21 17:53 Pulse Oximetry 99 08/19/21 17:53 Const General: No cooperative, No well groomed, in distress, combative and disheveled HENMT Head: normal to inspection and normocephalic Resp Effort & Inspection: normal respiratory effort Cardio Rate: tachycardic GI Inspection: normal to inspection Neuro Other: Not cooperative, move all 4 extremities but not to command. Is combative and agitated. Not answer questions. Extrem General: normal to inspection Psych Appearance: disheveled Speech and Movement: agitated and restless Mood: manic mood and irritable mood Affect: hostile Attitude: belligerent Course Orders Ordered: Discontinued Medications Diphenhydramine HCl (Diphenhydramine 50 Mg/Ml Vial) 50 mg IM NOW ONE Stop: 08/19/21 17:37 Last Admin: 08/19/21 18:06 Dose: 50 mg Documented by: DO Haloperidol (Haloperidol 5 Mg/Ml Vial) 5 mg IM NOW ONE Stop: 08/19/21 17:37 Last Admin: 08/19/21 18:06 Dose: 5 mg Documented by: DO Lorazepam (Lorazepam 2 Mg/Ml Inj) 2 mg IM NOW ONE Stop: 08/19/21 17:37 Last Admin: 08/19/21 18:06 Dose: 2 mg Documented by: DO Vital Signs Vital signs: Vital Signs - 8 hr 08/20/21 00:01 08/20/21 00:30 08/20/21 03:16 Pulse Rate 80 79 80 Respiratory Rate 16 Blood Pressure 97/66 119/68 Pulse Oximetry 97 100 99 08/20/21 03:30 08/20/21 04:00 08/20/21 04:30 Pulse Rate 82 74 76 Respiratory Rate Blood Pressure 108/59 L Pulse Oximetry 99 99 99 [facility] - Psych Medical Records Attestation: I reviewed the patient's medical records. Lab Data Result diagrams: 08/19/21 18:45 08/19/21 18:45 Labs: Lab Results 08/19/21 08/19/21 08/19/21 Range/Units 17:45 17:45 17:47 WBC (4.5-11.0) X10^3/uL RBC (4.0-5.2) X10^6/uL Hgb (12.0-16.0) g/dL Hct (36-46) % MCV (80-100) fL MCH (26-34) PG MCHC (30-36) % RDW (11.6-14.8) % Plt Count (150-400) X10^3/uL Neut % (Auto) (50-75) % Lymph % (Auto) (25-40) % [place] % (Auto) (3-14) % Eos % (Auto) (2-4) % Baso % (Auto) (0-2) % Neut # (Auto) (5843-8067) /uL Lymph # (Auto) (4935-7893) /uL [place] # (Auto) (0-900) /uL Eos # (Auto) (0-450) /uL Baso # (Auto) (0-100) /uL Sodium (137-145) mmol/L Potassium (3.4-5.1) mmol/L Chloride (98-107) mmol/L Carbon Dioxide (22-32) mmol/L BUN (7-17) mg/dL Creatinine (0.52-1.04) mg/dL Estimated GFR (>60) mL/min BUN/Creatinine Ratio (6-22) Glucose (70-100) mg/dL Calcium (8.4-10.2) mg/dL Total Bilirubin (0.2-1.3) mg/dL AST (14-36) IU/L ALT (<35) IU/L Alkaline Phosphatase (38-126) U/L Total Protein (6.3-8.2) g/dL Albumin (3.5-5.0) g/dL Globulin (1.7-4.1) g/dL Albumin/Globulin Ratio (1.0-2.8) Lipase (23-300) U/L TSH (0.47-4.68) uIU/mL Urine Color Yellow Urine Appearance Clear Urine pH 5.5 (4.5-8.0) Ur Specific [place] >=1.030 H (1.000-1.035) Urine Protein Trace H (Negative) Urine Glucose (UA) Negative (Negative) g/dL Urine Ketones Trace H (NEGATIVE) Urine Occult Blood Negative (Negative) Urine Nitrate Negative (Negative) Urine Bilirubin Negative (NEGATIVE) Urine Urobilinogen 0.2 (0.2) E.U./dL Ur Leukocyte Esterase Negative (NEGATIVE) Urine RBC 1-5/hpf (0-5/HPF) Urine WBC 1-5/hpf (0-5/HPF) Ur Squamous Epith Cells 10-30 /hpf H (0-5/HPF) Urine Bacteria Moderate (10-30) H (None) Urine Mucus 2+ H (Negative) Ur Culture Indicated? Cult not indicated Urine Test Negative (Negative) Salicylates (<20) mg/dL U Opiates 300ng/mL cut Negative (Negative) Ur Oxycodone Screen Negative (Negative) Urine Methadone Screen Negative (Negative) Acetaminophen (10-30) ug/mL Ur Barbiturates Screen Negative (Negative) U Tricyclic Antidepress Negative (Negative) Ur Phencyclidine Scrn Negative (Negative) Ur Amphetamines Screen Positive H (Negative) U Methamphetamines Scrn Positive H (Negative) Ur MDMA Scrn (Ecstasy) Positive H (Negative) U Benzodiazepines Scrn Negative (Negative) Urine Cocaine Screen Negative (Negative) U Marijuana (THC) Screen Negative (Negative) Ethyl Alcohol ( - 10) mg/dL SARS-CoV-2 (PCR) (Negative) 08/19/21 08/19/21 08/19/21 Range/Units 18:26 18:45 18:45 WBC 8.6 (4.5-11.0) X10^3/uL RBC 3.84 L (4.0-5.2) X10^6/uL Hgb 11.2 L (12.0-16.0) g/dL Hct 32.8 L (36-46) % MCV 85.4 (80-100) fL MCH 29.3 (26-34) PG MCHC 34.3 (30-36) % RDW 13.8 (11.6-14.8) % Plt Count 363 (150-400) X10^3/uL Neut % (Auto) 86.2 H (50-75) % Lymph % (Auto) 9.6 L (25-40) % [place] % (Auto) 3.5 (3-14) % Eos % (Auto) 0.1 L (2-4) % Baso % (Auto) 0.6 (0-2) % Neut # (Auto) 7400 H (4933-3443) /uL Lymph # (Auto) 800 L (3306-8956) /uL [place] # (Auto) 300 (0-900) /uL Eos # (Auto) 0 (0-450) /uL Baso # (Auto) 100 (0-100) /uL Sodium 138 (137-145) mmol/L Potassium 3.7 (3.4-5.1) mmol/L Chloride 104 (98-107) mmol/L Carbon Dioxide 28 (22-32) mmol/L BUN 21 H (7-17) mg/dL Creatinine 0.62 (0.52-1.04) mg/dL Estimated GFR > 60 (>60) mL/min BUN/Creatinine Ratio 33.9 H (6-22) Glucose 115 H (70-100) mg/dL Calcium 8.8 (8.4-10.2) mg/dL Total Bilirubin 0.7 (0.2-1.3) mg/dL AST 24 (14-36) IU/L ALT 11 (<35) IU/L Alkaline Phosphatase 61 (38-126) U/L Total Protein 6.6 (6.3-8.2) g/dL Albumin 4.0 (3.5-5.0) g/dL Globulin 2.6 (1.7-4.1) g/dL Albumin/Globulin Ratio 1.5 (1.0-2.8) Lipase (23-300) U/L TSH (0.47-4.68) uIU/mL Urine Color Urine Appearance Urine pH (4.5-8.0) Ur Specific [place] (1.000-1.035) Urine Protein (Negative) Urine Glucose (UA) (Negative) g/dL Urine Ketones (NEGATIVE) Urine Occult Blood (Negative) Urine Nitrate (Negative) Urine Bilirubin (NEGATIVE) Urine Urobilinogen (0.2) E.U./dL Ur Leukocyte Esterase (NEGATIVE) Urine RBC (0-5/HPF) Urine WBC (0-5/HPF) Ur Squamous Epith Cells (0-5/HPF) Urine Bacteria (None) Urine Mucus (Negative) Ur Culture Indicated? Urine Test (Negative) Salicylates (<20) mg/dL U Opiates 300ng/mL cut (Negative) Ur Oxycodone Screen (Negative) Urine Methadone Screen (Negative) Acetaminophen < 10 (10-30) ug/mL Ur Barbiturates Screen (Negative) U Tricyclic Antidepress (Negative) Ur Phencyclidine Scrn (Negative) Ur Amphetamines Screen (Negative) U Methamphetamines Scrn (Negative) Ur MDMA Scrn (Ecstasy) (Negative) U Benzodiazepines Scrn (Negative) Urine Cocaine Screen (Negative) U Marijuana (THC) Screen (Negative) Ethyl Alcohol ( - 10) mg/dL SARS-CoV-2 (PCR) Negative (Negative) 08/19/21 08/19/21 Range/Units 18:45 18:45 WBC (4.5-11.0) X10^3/uL RBC (4.0-5.2) X10^6/uL Hgb (12.0-16.0) g/dL Hct (36-46) % MCV (80-100) fL MCH (26-34) PG MCHC (30-36) % RDW (11.6-14.8) % Plt Count (150-400) X10^3/uL Neut % (Auto) (50-75) % Lymph % (Auto) (25-40) % [place] % (Auto) (3-14) % Eos % (Auto) (2-4) % Baso % (Auto) (0-2) % Neut # (Auto) (7147-7510) /uL Lymph # (Auto) (0436-2281) /uL [place] # (Auto) (0-900) /uL Eos # (Auto) (0-450) /uL Baso # (Auto) (0-100) /uL Sodium (137-145) mmol/L Potassium (3.4-5.1) mmol/L Chloride (98-107) mmol/L Carbon Dioxide (22-32) mmol/L BUN (7-17) mg/dL Creatinine (0.52-1.04) mg/dL Estimated GFR (>60) mL/min BUN/Creatinine Ratio (6-22) Glucose (70-100) mg/dL Calcium (8.4-10.2) mg/dL Total Bilirubin (0.2-1.3) mg/dL AST (14-36) IU/L ALT (<35) IU/L Alkaline Phosphatase (38-126) U/L Total Protein (6.3-8.2) g/dL Albumin (3.5-5.0) g/dL Globulin (1.7-4.1) g/dL Albumin/Globulin Ratio (1.0-2.8) Lipase 31 (23-300) U/L TSH 1.67 (0.47-4.68) uIU/mL Urine Color Urine Appearance Urine pH (4.5-8.0) Ur Specific [place] (1.000-1.035) Urine Protein (Negative) Urine Glucose (UA) (Negative) g/dL Urine Ketones (NEGATIVE) Urine Occult Blood (Negative) Urine Nitrate (Negative) Urine Bilirubin (NEGATIVE) Urine Urobilinogen (0.2) E.U./dL Ur Leukocyte Esterase (NEGATIVE) Urine RBC (0-5/HPF) Urine WBC (0-5/HPF) Ur Squamous Epith Cells (0-5/HPF) Urine Bacteria (None) Urine Mucus (Negative) Ur Culture Indicated? Urine Test (Negative) Salicylates < 1.0 (<20) mg/dL U Opiates 300ng/mL cut (Negative) Ur Oxycodone Screen (Negative) Urine Methadone Screen (Negative) Acetaminophen (10-30) ug/mL Ur Barbiturates Screen (Negative) U Tricyclic Antidepress (Negative) Ur Phencyclidine Scrn (Negative) Ur Amphetamines Screen (Negative) U Methamphetamines Scrn (Negative) Ur MDMA Scrn (Ecstasy) (Negative) U Benzodiazepines Scrn (Negative) Urine Cocaine Screen (Negative) U Marijuana (THC) Screen (Negative) Ethyl Alcohol < 10 ( - 10) mg/dL SARS-CoV-2 (PCR) (Negative) Point of Care Testing Test Results Negative MDM Narrative Medical decision making narrative: Patient is unable to provide any HPI review of systems. She has been calm overnight. Patient will need re-evaluated when she becomes sober care turned over to Dr. Coleman to follow-up and disposition. Discharge Plan Departure Clinical Impression: Acute psychosis Prescriptions: No Action Unobtainable 0RF Referrals: Ele Rodgers MD [Primary Care Provider] -
[2021-08-19 18:34] LABS: Appearance Urine UA CLEAR; Bilirubin Urine UA NEGATIVE (NEGATIVE); Color Urine UA YELLOW; Glucose Urine UA NEGATIVE (Negative); Ketones Urine UA TRACE (NEGATIVE); Leukocyte Esterase Urine UA NEGATIVE (NEGATIVE); Nitrite Urine UA NEGATIVE (Negative); Occult Blood Urine UA NEGATIVE (Negative); Protein Urine UA TRACE (Negative); Specific Gravity Urine UA >=1.030 (1.000-1.035); Urobilinogen Urine UA 0.2 E.U./dL (0.2)
[2021-08-19 18:35] LABS: UR Morphine/Opiate cutoff 300 Negative (Negative); Ur Creatinine Normal (Normal); Ur Specific Gravity Normal (Normal); Urine Cocaine Negative (Negative); Urine Tetrahydrocannabinol Negative (Negative); Urine pH Normal (Normal)
[2021-08-19 18:36] LABS: Urine Amphetamines Positive (Negative); Urine Barbiturates Negative (Negative); Urine Benzodiazepines Negative (Negative); Urine MDMA Positive (Negative); Urine Methadone Negative (Negative); Urine Methamphetamines Positive (Negative); Urine Oxycodone Negative (Negative); Urine Phencyclidine Negative (Negative); Urine Tricyclic Antidepressant Negative (Negative)
[2021-08-19 18:41] LABS: pH Urine UA 5.5 (4.5-8.0)
[2021-08-19 18:42] LABS: RBC Urine 1-5/HPF (0-5/HPF); Squamous Epithelial Cell Urine 10-30 /HPF (0-5/HPF); WBC Urine 1-5/HPF (0-5/HPF)
[2021-08-19 18:43] LABS: Bacteria Urine Moderate (10-30); Culture Indicated Urine Cult Not Indicated; Mucus Urine 2+ (Negative)
--- NOTE | 2021-08-19 18:50 | PC.NURSE ---
blood drawn and pt remains calm on stretcher. VSS and on monitor. belongings secured and labeled 2 bags in cabinet. pt in paper clothes. continue to monitor for safety
[2021-08-19 19:01] LABS: Add Manual Diff / Slide Review NO; Basophils Absolute Auto 100 /uL (0-100); Basophils Percent Auto 0.6 % (0-2); Eosinophils Absolute Auto 0 /uL (0-450); Eosinophils Percent Auto 0.1 % (2-4); Hematocrit 32.8 % (36-46); Hemoglobin 11.2 g/dL (12.0-16.0); Lymphocytes Absolute Auto 800 /uL (1100-4500); Lymphocytes Percent Auto 9.6 % (25-40); Mean Corpuscular HGB Conc 34.3 % (30-36); Mean Corpuscular Hemoglobin 29.3 PG (26-34); Mean Corpuscular Volume 85.4 fL (80-100); Monocytes Absolute Auto 300 /uL (0-900); Monocytes Percent Auto 3.5 % (3-14); Neutrophils Absolute Auto 7400 /uL (1500-7000); Neutrophils Percent Auto 86.2 % (50-75); Platelet Count 363 X10^3/uL (150-400); Red Blood Cell Count 3.84 X10^6/uL (4.0-5.2); Red Cell Distribution Width 13.8 % (11.6-14.8); White Blood Cell Count 8.6 X10^3/uL (4.5-11.0)
[2021-08-19 19:02] LABS: COVID19 -Nasal RAPID Negative (Negative)
[2021-08-19 19:07] LABS: Ethanol (ETOH) < 10 mg/dL; Lipase 31 U/L (23-300); Salicylate < 1.0 mg/dL (<20)
[2021-08-19 19:09] LABS: Acetaminophen < 10 ug/mL (10-30); Alanine Aminotransferase 11 IU/L (<35); Albumin Globulin Ratio 1.5 (1.0-2.8); Alkaline Phosphatase 61 U/L (38-126); Aspartate Aminotransferase 24 IU/L (14-36); BUN Creatinine Ratio 33.9 (6-22); Bilirubin Total 0.7 mg/dL (0.2-1.3); Blood Urea Nitrogen 21 mg/dL (7-17); Calcium 8.8 mg/dL (8.4-10.2); Carbon Dioxide 28 mmol/L (22-32); Chloride 104 mmol/L (98-107); Estimated Glomerular Filt Rate > 60 mL/min (>60); Globulin 2.6 g/dL (1.7-4.1); Glucose 115 mg/dL (70-100); HEMOLYSIS < 15 (0-50); Potassium 3.7 mmol/L (3.4-5.1); Sodium 138 mmol/L (137-145); Total Protein 6.6 g/dL (6.3-8.2)
[2021-08-19 20:57] LABS: Thyroid Stimulating Hormone 1.67 uIU/mL (0.47-4.68)
[2021-08-20] VITALS (7 sets, daily range): BP systolic 97–119; BP diastolic 59–68; PULSE 74–82; RESP 16; O2SAT 97–100
--- NOTE | 2021-08-20 16:04 | CM.SWNOTE ---
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 Patient has hx of Schizophrenia and methamphetamine use. Patient has been sleeping the last 13 hours, SOCIAL MEDIA DESIGNER enters room to meet with patient. Patient presents as A/Ox4 and calm. Patient states she is good patient denies that she remembers what brought her to the ED last evening. Patient endorses that she feels safe at home and feels safe here. Patient states that she would like to go home. Patient endorses that she resides in an apartment. Patient denies HI and SI. Patient endorses that she gets enough food to eat and is connected with [employer]. Patient denies current medications and current MH provider. Patient states I try not to use drugs but endorses that she used Methamphetamine yesterday. SOCIAL MEDIA DESIGNER offers patient resources and asks if patient is need of assistance on multiple occasions and patient denies any needs from SOCIAL MEDIA DESIGNER. It is the opinion of this SOCIAL MEDIA DESIGNER that patient is safe to d/c to home. Patient endorses her safety to do so. SOCIAL MEDIA DESIGNER reviews the above with ED provider Dr. Coleman who indicates agreement and understanding. Plan: Patient to d/c to community when medically clear. WYATT Rogers
== END 2021-08-20 12:55 | disposition home or self-care (01) ==
PROVIDERS: Emergency Medicine; Emergency Provider Emergency Medicine; Family Provider Family Medicine; PCP Family Medicine
DX: F23 Brief psychotic disorder (principal); F15.90 Other stimulant use, unspecified, uncomplicated
CPT/HCPCS: 80053; 80305; 80320; 80329; 81001; 81025; 83690; 84443; 85025; 87635; 96372; 99284; C9803; G0480; J1200; J1630; J2060

== ENCOUNTER 2021-08-20 20:23 | Emergency (ER) | payer OTHER, MEDICAID, SELFPAY ==
[2021-08-20 20:46] VITALS: BP 127/59; PULSE 91; RESP 20; TEMP 36.8; O2SAT 99
--- NOTE | 2021-08-21 05:49 | ED.PSYCH ---
HPI - Psych General Chief Complaint: Psychiatric Symptoms Stated Complaint: DOES NOT FEEL WELL Time Seen by Provider: 08/21/21 01:01 Source: patient Mode of arrival: Ambulatory History of Present Illness HPI Narrative: 41-year-old woman with a history of schizophrenia, homelessness, methamphetamine induced psychosis was in the emergency department last night spent much of the night, ended up speaking with the psychiatric social worker supervisor was felt to be safe to discharge home. She was found have methamphetamine and MDMA in her urine at that time. She presents again this evening complaining that she does not feel safe on the street and would like to come into the ER where she does feel safe. She does not have any acute complaints other than not feeling safe. She does not appear to be responding to internal stimuli. She is her at her baseline level of disheveled meant. She is not complaining of fever, cough, chills, abdominal pain, lower extremity edema, headaches. She does not state that she is suicidal Related Data Home Medications Medication Instructions Recorded Confirmed Unobtainable 09/29/20 09/29/20 Allergies Allergy/AdvReac Type Severity Reaction Status Date / Time No Allergy Information Allergy Verified 09/29/20 16:51 Available Review of Systems Review of Systems Narrative: Remainder of exam Patient History Medical History Drug abuse Schizophrenia Social History Smoking Status: Smoker, status unknown Smoking Status: Smoker, status unknown alcohol intake frequency: other Substance Use Type: methamphetamine and unknown Exam Initial Vital Signs Initial Vital Signs: Vital Signs Temperature 98.2 F 08/20/21 20:46 Pulse Rate 91 H 08/20/21 20:46 Respiratory Rate 20 08/20/21 20:46 Blood Pressure 127/59 L 08/20/21 20:46 Pulse Oximetry 99 08/20/21 20:46 General: Disheveled-appearing but in no acute distress. HEENT: Moist mucous membranes, normal sclera with reactive pupils, Respiratory: Lungs are clear to auscultation, no wheezing no rales no rhonchi. Full and symmetrical air movement Cardiac: Regular rate and rhythm no murmurs no bruits Abdomen: Soft, nontender, good bowel tones, no flank pain Skin: Sequelae of significant time spent outdoors with minor scratches to hands and feet, no superficial skininfections Neurologic: Grossly neurologically intact with no obvious asymmetries or abnormalities Extremities: No trauma, well perfused Psych: Poor overall eye contact, easily distracted, calms and falls asleep without difficulty MDM - Psych MDM Narrative Medical decision making narrative: 41-year-old woman with history of schizophrenia complaining that she felt unsafe but can not be more specific than that. She slept much of the evening and when she awakes she seems like she is back to her baseline moderately distracted self. After each question I asked she writes non legibly on a piece paper and then answers my question. She is now making appropriate eye contact. States she is currently living in a hotel room and does have the capacity to go back and take a shower. On closer evaluation she appears to have conceal ir covering most of her face extending into her hair and covering the back of her hands. This looks much more like makeup than mud which had been my initial assumption. She is quite polite, does not ask for any additional help, does not feel that she needs to be in the hospital and no longer feels unsafe. I did explain to her that she is welcome to come to the emergency room if she is truly an crisis however the emergency room is not an appropriate place to spend the night simply because it is safe and dry. She does seem to understand that. At this time she is safe for home discharge Discharge Plan Departure Patient Disposition: Home Clinical Impression: Chronic schizophrenia Instructions: DI for Schizophrenia Activity Restrictions/Additional Instructions: I am sorry that you are feeling unsafe last night. At this point I think that is safe for you to go home. You said you had hotel room to sleep in and to use bathroom and shower facilities. The emergency department is an appropriate place if you are having an actual medical or psychiatric emergency and we are happy to help in that situation. Unfortunately, we are not able to provide a place to simply sleep or be out of the cold. I wish you the best Prescriptions: No Action Unobtainable 0RF Referrals: Ele Rodgers MD [Primary Care Provider] -
[2021-08-21 06:17] VITALS: BP 103/57; PULSE 80; RESP 18; O2SAT 98
== END 2021-08-21 06:26 | disposition home or self-care (01) ==
PROVIDERS: Emergency Provider Emergency Medicine; Family Provider Family Medicine; PCP Family Medicine
DX: F20.9 Schizophrenia, unspecified (principal)
CPT/HCPCS: 99281; 99283

== ENCOUNTER 2021-08-22 23:45 | Emergency (ER) | payer OTHER, MEDICAID, SELFPAY ==
--- NOTE | 2021-08-22 23:51 | PC.NURSE ---
Pt ambulated independently into ER and when this RN attempted to room pt, pt refused to enter room. Pt informed that she cannot be triaged by staff unless she is in a room and assessed and her VS taken. Pt requested to leave the ER, but not before she asked this RN for slippers and food. This RN informed pt this was not an option.
== END 2021-08-22 23:54 | disposition left against medical advice (07) ==
PROVIDERS: Emergency Provider Emergency Medicine; Family Provider Family Medicine; PCP Family Medicine

== ENCOUNTER 2021-08-23 21:55 | Emergency (ER) | payer OTHER, MEDICAID, SELFPAY | END 2021-08-23 22:14 | disposition left against medical advice (07) | LOC: ED 23:03 | PROVIDERS: Emergency Provider Emergency Medicine; Family Provider Family Medicine; PCP Family Medicine ==

== ENCOUNTER 2021-08-23 23:18 | Emergency (ER) | payer OTHER, MEDICAID, SELFPAY ==
--- NOTE | 2021-08-23 23:28 | ED.PSYCH ---
HPI - Psych <Kaela Watkins DO - Last Filed: 08/24/21 21:51> General Chief Complaint: Psychiatric Symptoms Stated Complaint: ca Time Seen by Provider: 08/23/21 23:28 History of Present Illness HPI Narrative: Patient is a 41-year-old female well known to this facility with history of methamphetamine this is her 5th visit since 08/10/2021. She is brought in by the police for CA. She apparently was weaving in and out of prep traffic walking. She is paranoid that people are coming through the min[place]. She apparently is staying at a hotel. She was in the waiting room registered as a the patient saying that she did not feel well but can not give any more specifics. She did not want to be seen and left without being seen at that time. However police brought her back just a few hours later. She was last seen on 08/21/2021. Today she denies any suicidal or homicidal ideations. She is actually calm asking to be taken out of handcuffs by the police. She is asking nicely to just be able to go home. Related Data Home Medications Medication Instructions Recorded Confirmed Unobtainable 09/29/20 09/29/20 Allergies Allergy/AdvReac Type Severity Reaction Status Date / Time No Allergy Information Allergy Verified 09/29/20 16:51 Available Review of Systems <DO Crissy Lagunas Last Filed: 08/24/21 21:51> Review of Systems ROS Unobtainable: All systems reviewed & are unremarkable except as noted in HPI and below Patient History <DO Crissy Lagunas Last Filed: 08/24/21 21:51> Medical History Drug abuse Schizophrenia Social History Smoking Status: Smoker, status unknown Smoking Status: Smoker, status unknown alcohol intake frequency: other Substance Use Type: methamphetamine and unknown Exam <DO Crissy Lagunas Last Filed: 08/24/21 21:51> Initial Vital Signs Initial Vital Signs: Vital Signs Temperature 98.7 F 08/23/21 23:59 Pulse Rate 104 H 08/23/21 23:59 Respiratory Rate 19 08/23/21 23:59 Blood Pressure 105/57 L 08/23/21 23:59 Pulse Oximetry 100 08/23/21 23:59 GENERAL: Disheveled 41-year-old female without acute distress CARDIOVASCULAR: peripheral pulses in tact, cap refill <2 sec RESPIRATORY: No respiratory distress, speaks in full sentences without difficulty EXTREMITIES: Normal range of motion, no clubbing or edema. Neurovascularly intact NEUROLOGICAL: Cranial nerves II through XII grossly intact. Normal gait and speech. SKIN: [place] of significant time spent outdoors minor scratches no obvious cuts PSYCH: The patient is calm she actually has good eye contact discharge of old [place] insight <Isaiah Capps DO - Last Filed: 08/24/21 13:48> Initial Vital Signs Initial Vital Signs: Vital Signs Temperature 98.7 F 08/23/21 23:59 Pulse Rate 104 H 08/23/21 23:59 Respiratory Rate 19 08/23/21 23:59 Blood Pressure 105/57 L 08/23/21 23:59 Pulse Oximetry 100 08/23/21 23:59 Course <Kaela Watkins DO - Last Filed: 08/24/21 21:51> Orders Ordered: Discontinued Medications Diphenhydramine HCl (Diphenhydramine 50 Mg/Ml Vial) 50 mg IM NOW ONE Stop: 08/23/21 23:38 Last Admin: 08/23/21 23:53 Dose: 50 mg Documented by: EVERT Haloperidol (Haloperidol 5 Mg/Ml Vial) 5 mg IM NOW ONE Stop: 08/23/21 23:38 Last Admin: 08/23/21 23:52 Dose: 5 mg Documented by: EVERT Lorazepam (Lorazepam 2 Mg/Ml Inj) 2 mg IM NOW ONE Stop: 08/23/21 23:38 Last Admin: 08/23/21 23:52 Dose: 2 mg Documented by: EVERT Vital Signs Vital signs: Vital Signs - 8 hr 08/24/21 18:06 Pulse Rate 63 Respiratory Rate 18 Blood Pressure 119/67 Pulse Oximetry 97 <DO Crissy Horton Last Filed: 08/24/21 13:48> Orders Ordered: Discontinued Medications Diphenhydramine HCl (Diphenhydramine 50 Mg/Ml Vial) 50 mg IM NOW ONE Stop: 08/23/21 23:38 Last Admin: 08/23/21 23:53 Dose: 50 mg Documented by: EVERT Haloperidol (Haloperidol 5 Mg/Ml Vial) 5 mg IM NOW ONE Stop: 08/23/21 23:38 Last Admin: 08/23/21 23:52 Dose: 5 mg Documented by: EVERT Lorazepam (Lorazepam 2 Mg/Ml Inj) 2 mg IM NOW ONE Stop: 08/23/21 23:38 Last Admin: 08/23/21 23:52 Dose: 2 mg Documented by: EVERT Vital Signs Vital signs: Vital Signs - 8 hr 08/24/21 18:06 Pulse Rate 63 Respiratory Rate 18 Blood Pressure 119/67 Pulse Oximetry 97 MDM - Psych <Kaela Watkins, DO - Last Filed: 08/24/21 21:51> Lab Data Result diagrams: 08/24/21 00:20 08/24/21 00:20 Labs: Lab Results 08/23/21 08/23/21 08/23/21 Range/Units 23:51 23:51 23:51 WBC (4.5-11.0) X10^3/uL RBC (4.0-5.2) X10^6/uL Hgb (12.0-16.0) g/dL Hct (36-46) % MCV (80-100) fL MCH (26-34) PG MCHC (30-36) % RDW (11.6-14.8) % Plt Count (150-400) X10^3/uL Neut % (Auto) (50-75) % Lymph % (Auto) (25-40) % [place] % (Auto) (3-14) % Eos % (Auto) (2-4) % Baso % (Auto) (0-2) % Neut # (Auto) (9238-8191) /uL Lymph # (Auto) (6424-4708) /uL [place] # (Auto) (0-900) /uL Eos # (Auto) (0-450) /uL Baso # (Auto) (0-100) /uL Sodium (137-145) mmol/L Potassium (3.4-5.1) mmol/L Chloride (98-107) mmol/L Carbon Dioxide (22-32) mmol/L BUN (7-17) mg/dL Creatinine (0.52-1.04) mg/dL Estimated GFR (>60) mL/min BUN/Creatinine Ratio (6-22) Glucose (70-100) mg/dL Calcium (8.4-10.2) mg/dL Total Bilirubin (0.2-1.3) mg/dL AST (14-36) IU/L ALT (<35) IU/L Alkaline Phosphatase (38-126) U/L Total Protein (6.3-8.2) g/dL Albumin (3.5-5.0) g/dL Globulin (1.7-4.1) g/dL Albumin/Globulin Ratio (1.0-2.8) TSH (0.47-4.68) uIU/mL Urine Color Yellow Urine Appearance Clear Urine pH 5.5 (4.5-8.0) Ur Specific [place] >=1.030 H (1.000-1.035) Urine Protein 2+ H (Negative) Urine Glucose (UA) Trace H (Negative) g/dL Urine Ketones Negative (NEGATIVE) Urine Occult Blood Negative (Negative) Urine Nitrate Negative (Negative) Urine Bilirubin Negative (NEGATIVE) Urine Urobilinogen 0.2 (0.2) E.U./dL Ur Leukocyte Esterase Negative (NEGATIVE) Urine RBC None seen (0-5/HPF) Urine WBC None seen (0-5/HPF) Ur Squamous Epith Cells 5-10 /hpf H (0-5/HPF) Urine Bacteria Few (2-10) H (None) Ur Culture Indicated? Cult not indicated Urine Test Negative (Negative) U Opiates 300ng/mL cut Negative (Negative) Ur Oxycodone Screen Negative (Negative) Urine Methadone Screen Negative (Negative) Ur Barbiturates Screen Negative (Negative) U Tricyclic Antidepress Negative (Negative) Ur Phencyclidine Scrn Negative (Negative) Ur Amphetamines Screen Positive H (Negative) U Methamphetamines Scrn Positive H (Negative) Ur MDMA Scrn (Ecstasy) Positive H (Negative) U Benzodiazepines Scrn Negative (Negative) Urine Cocaine Screen Negative (Negative) U Marijuana (THC) Screen Negative (Negative) Ethyl Alcohol ( - 10) mg/dL SARS-CoV-2 (PCR) (Negative) 08/24/21 08/24/21 08/24/21 Range/Units 00:20 00:20 00:20 WBC 10.0 (4.5-11.0) X10^3/uL RBC 3.93 L (4.0-5.2) X10^6/uL Hgb 11.8 L (12.0-16.0) g/dL Hct 33.8 L (36-46) % MCV 85.9 (80-100) fL MCH 29.9 (26-34) PG MCHC 34.8 (30-36) % RDW 14.2 (11.6-14.8) % Plt Count 386 (150-400) X10^3/uL Neut % (Auto) 76.0 H (50-75) % Lymph % (Auto) 15.7 L (25-40) % [place] % (Auto) 6.7 (3-14) % Eos % (Auto) 0.6 L (2-4) % Baso % (Auto) 1.0 (0-2) % Neut # (Auto) 7600 H (4344-3577) /uL Lymph # (Auto) 1600 (3814-6778) /uL [place] # (Auto) 700 (0-900) /uL Eos # (Auto) 100 (0-450) /uL Baso # (Auto) 100 (0-100) /uL Sodium 137 (137-145) mmol/L Potassium 3.7 (3.4-5.1) mmol/L Chloride 103 (98-107) mmol/L Carbon Dioxide 29 (22-32) mmol/L BUN 23 H (7-17) mg/dL Creatinine 0.66 (0.52-1.04) mg/dL Estimated GFR > 60 (>60) mL/min BUN/Creatinine Ratio 34.8 H (6-22) Glucose 132 H (70-100) mg/dL Calcium 9.0 (8.4-10.2) mg/dL Total Bilirubin 0.8 (0.2-1.3) mg/dL AST 27 (14-36) IU/L ALT 13 (<35) IU/L Alkaline Phosphatase 61 (38-126) U/L Total Protein 7.2 (6.3-8.2) g/dL Albumin 4.3 (3.5-5.0) g/dL Globulin 2.9 (1.7-4.1) g/dL Albumin/Globulin Ratio 1.5 (1.0-2.8) TSH 1.81 (0.47-4.68) uIU/mL Urine Color Urine Appearance Urine pH (4.5-8.0) Ur Specific [place] (1.000-1.035) Urine Protein (Negative) Urine Glucose (UA) (Negative) g/dL Urine Ketones (NEGATIVE) Urine Occult Blood (Negative) Urine Nitrate (Negative) Urine Bilirubin (NEGATIVE) Urine Urobilinogen (0.2) E.U./dL Ur Leukocyte Esterase (NEGATIVE) Urine RBC (0-5/HPF) Urine WBC (0-5/HPF) Ur Squamous Epith Cells (0-5/HPF) Urine Bacteria (None) Ur Culture Indicated? Urine Test (Negative) U Opiates 300ng/mL cut (Negative) Ur Oxycodone Screen (Negative) Urine Methadone Screen (Negative) Ur Barbiturates Screen (Negative) U Tricyclic Antidepress (Negative) Ur Phencyclidine Scrn (Negative) Ur Amphetamines Screen (Negative) U Methamphetamines Scrn (Negative) Ur MDMA Scrn (Ecstasy) (Negative) U Benzodiazepines Scrn (Negative) Urine Cocaine Screen (Negative) U Marijuana (THC) Screen (Negative) Ethyl Alcohol < 10 ( - 10) mg/dL SARS-CoV-2 (PCR) (Negative) 08/24/21 Range/Units 10:15 WBC (4.5-11.0) X10^3/uL RBC (4.0-5.2) X10^6/uL Hgb (12.0-16.0) g/dL Hct (36-46) % MCV (80-100) fL MCH (26-34) PG MCHC (30-36) % RDW (11.6-14.8) % Plt Count (150-400) X10^3/uL Neut % (Auto) (50-75) % Lymph % (Auto) (25-40) % [place] % (Auto) (3-14) % Eos % (Auto) (2-4) % Baso % (Auto) (0-2) % Neut # (Auto) (7536-6501) /uL Lymph # (Auto) (7888-2795) /uL [place] # (Auto) (0-900) /uL Eos # (Auto) (0-450) /uL Baso # (Auto) (0-100) /uL Sodium (137-145) mmol/L Potassium (3.4-5.1) mmol/L Chloride (98-107) mmol/L Carbon Dioxide (22-32) mmol/L BUN (7-17) mg/dL Creatinine (0.52-1.04) mg/dL Estimated GFR (>60) mL/min BUN/Creatinine Ratio (6-22) Glucose (70-100) mg/dL Calcium (8.4-10.2) mg/dL Total Bilirubin (0.2-1.3) mg/dL AST (14-36) IU/L ALT (<35) IU/L Alkaline Phosphatase (38-126) U/L Total Protein (6.3-8.2) g/dL Albumin (3.5-5.0) g/dL Globulin (1.7-4.1) g/dL Albumin/Globulin Ratio (1.0-2.8) TSH (0.47-4.68) uIU/mL Urine Color Urine Appearance Urine pH (4.5-8.0) Ur Specific [place] (1.000-1.035) Urine Protein (Negative) Urine Glucose (UA) (Negative) g/dL Urine Ketones (NEGATIVE) Urine Occult Blood (Negative) Urine Nitrate (Negative) Urine Bilirubin (NEGATIVE) Urine Urobilinogen (0.2) E.U./dL Ur Leukocyte Esterase (NEGATIVE) Urine RBC (0-5/HPF) Urine WBC (0-5/HPF) Ur Squamous Epith Cells (0-5/HPF) Urine Bacteria (None) Ur Culture Indicated? Urine Test (Negative) U Opiates 300ng/mL cut (Negative) Ur Oxycodone Screen (Negative) Urine Methadone Screen (Negative) Ur Barbiturates Screen (Negative) U Tricyclic Antidepress (Negative) Ur Phencyclidine Scrn (Negative) Ur Amphetamines Screen (Negative) U Methamphetamines Scrn (Negative) Ur MDMA Scrn (Ecstasy) (Negative) U Benzodiazepines Scrn (Negative) Urine Cocaine Screen (Negative) U Marijuana (THC) Screen (Negative) Ethyl Alcohol ( - 10) mg/dL SARS-CoV-2 (PCR) Negative (Negative) MDM Narrative Medical decision making narrative: Patient is calm but asking to leave. She does get amped up quite easily and has in the past. She is actually requesting medication. I have given her option of shot or pills. She is actually requesting shots. She previously has had be 52 it has seemed to work well for her. Will give that again. She is sleeping. The patient has had multiple ED visits, when she previously has had very few. Concern is sore increased level of crisis. Possible DC are when patient is more awake Patient signed out to Dr. Capps <Isaiah Capps, DO - Last Filed: 08/24/21 13:48> Lab Data Labs: Lab Results 08/23/21 08/23/21 08/23/21 Range/Units 23:51 23:51 23:51 WBC (4.5-11.0) X10^3/uL RBC (4.0-5.2) X10^6/uL Hgb (12.0-16.0) g/dL Hct (36-46) % MCV (80-100) fL MCH (26-34) PG MCHC (30-36) % RDW (11.6-14.8) % Plt Count (150-400) X10^3/uL Neut % (Auto) (50-75) % Lymph % (Auto) (25-40) % [place] % (Auto) (3-14) % Eos % (Auto) (2-4) % Baso % (Auto) (0-2) % Neut # (Auto) (3533-3704) /uL Lymph # (Auto) (6671-1186) /uL [place] # (Auto) (0-900) /uL Eos # (Auto) (0-450) /uL Baso # (Auto) (0-100) /uL Sodium (137-145) mmol/L Potassium (3.4-5.1) mmol/L Chloride (98-107) mmol/L Carbon Dioxide (22-32) mmol/L BUN (7-17) mg/dL Creatinine (0.52-1.04) mg/dL Estimated GFR (>60) mL/min BUN/Creatinine Ratio (6-22) Glucose (70-100) mg/dL Calcium (8.4-10.2) mg/dL Total Bilirubin (0.2-1.3) mg/dL AST (14-36) IU/L ALT (<35) IU/L Alkaline Phosphatase (38-126) U/L Total Protein (6.3-8.2) g/dL Albumin (3.5-5.0) g/dL Globulin (1.7-4.1) g/dL Albumin/Globulin Ratio (1.0-2.8) TSH (0.47-4.68) uIU/mL Urine Color Yellow Urine Appearance Clear Urine pH 5.5 (4.5-8.0) Ur Specific [place] >=1.030 H (1.000-1.035) Urine Protein 2+ H (Negative) Urine Glucose (UA) Trace H (Negative) g/dL Urine Ketones Negative (NEGATIVE) Urine Occult Blood Negative (Negative) Urine Nitrate Negative (Negative) Urine Bilirubin Negative (NEGATIVE) Urine Urobilinogen 0.2 (0.2) E.U./dL Ur Leukocyte Esterase Negative (NEGATIVE) Urine RBC None seen (0-5/HPF) Urine WBC None seen (0-5/HPF) Ur Squamous Epith Cells 5-10 /hpf H (0-5/HPF) Urine Bacteria Few (2-10) H (None) Ur Culture Indicated? Cult not indicated Urine Test Negative (Negative) U Opiates 300ng/mL cut Negative (Negative) Ur Oxycodone Screen Negative (Negative) Urine Methadone Screen Negative (Negative) Ur Barbiturates Screen Negative (Negative) U Tricyclic Antidepress Negative (Negative) Ur Phencyclidine Scrn Negative (Negative) Ur Amphetamines Screen Positive H (Negative) U Methamphetamines Scrn Positive H (Negative) Ur MDMA Scrn (Ecstasy) Positive H (Negative) U Benzodiazepines Scrn Negative (Negative) Urine Cocaine Screen Negative (Negative) U Marijuana (THC) Screen Negative (Negative) Ethyl Alcohol ( - 10) mg/dL SARS-CoV-2 (PCR) (Negative) 08/24/21 08/24/21 08/24/21 Range/Units 00:20 00:20 00:20 WBC 10.0 (4.5-11.0) X10^3/uL RBC 3.93 L (4.0-5.2) X10^6/uL Hgb 11.8 L (12.0-16.0) g/dL Hct 33.8 L (36-46) % MCV 85.9 (80-100) fL MCH 29.9 (26-34) PG MCHC 34.8 (30-36) % RDW 14.2 (11.6-14.8) % Plt Count 386 (150-400) X10^3/uL Neut % (Auto) 76.0 H (50-75) % Lymph % (Auto) 15.7 L (25-40) % [place] % (Auto) 6.7 (3-14) % Eos % (Auto) 0.6 L (2-4) % Baso % (Auto) 1.0 (0-2) % Neut # (Auto) 7600 H (2792-3669) /uL Lymph # (Auto) 1600 (6625-9754) /uL [place] # (Auto) 700 (0-900) /uL Eos # (Auto) 100 (0-450) /uL Baso # (Auto) 100 (0-100) /uL Sodium 137 (137-145) mmol/L Potassium 3.7 (3.4-5.1) mmol/L Chloride 103 (98-107) mmol/L Carbon Dioxide 29 (22-32) mmol/L BUN 23 H (7-17) mg/dL Creatinine 0.66 (0.52-1.04) mg/dL Estimated GFR > 60 (>60) mL/min BUN/Creatinine Ratio 34.8 H (6-22) Glucose 132 H (70-100) mg/dL Calcium 9.0 (8.4-10.2) mg/dL Total Bilirubin 0.8 (0.2-1.3) mg/dL AST 27 (14-36) IU/L ALT 13 (<35) IU/L Alkaline Phosphatase 61 (38-126) U/L Total Protein 7.2 (6.3-8.2) g/dL Albumin 4.3 (3.5-5.0) g/dL Globulin 2.9 (1.7-4.1) g/dL Albumin/Globulin Ratio 1.5 (1.0-2.8) TSH 1.81 (0.47-4.68) uIU/mL Urine Color Urine Appearance Urine pH (4.5-8.0) Ur Specific [place] (1.000-1.035) Urine Protein (Negative) Urine Glucose (UA) (Negative) g/dL Urine Ketones (NEGATIVE) Urine Occult Blood (Negative) Urine Nitrate (Negative) Urine Bilirubin (NEGATIVE) Urine Urobilinogen (0.2) E.U./dL Ur Leukocyte Esterase (NEGATIVE) Urine RBC (0-5/HPF) Urine WBC (0-5/HPF) Ur Squamous Epith Cells (0-5/HPF) Urine Bacteria (None) Ur Culture Indicated? Urine Test (Negative) U Opiates 300ng/mL cut (Negative) Ur Oxycodone Screen (Negative) Urine Methadone Screen (Negative) Ur Barbiturates Screen (Negative) U Tricyclic Antidepress (Negative) Ur Phencyclidine Scrn (Negative) Ur Amphetamines Screen (Negative) U Methamphetamines Scrn (Negative) Ur MDMA Scrn (Ecstasy) (Negative) U Benzodiazepines Scrn (Negative) Urine Cocaine Screen (Negative) U Marijuana (THC) Screen (Negative) Ethyl Alcohol < 10 ( - 10) mg/dL SARS-CoV-2 (PCR) (Negative) 08/24/21 Range/Units 10:15 WBC (4.5-11.0) X10^3/uL RBC (4.0-5.2) X10^6/uL Hgb (12.0-16.0) g/dL Hct (36-46) % MCV (80-100) fL MCH (26-34) PG MCHC (30-36) % RDW (11.6-14.8) % Plt Count (150-400) X10^3/uL Neut % (Auto) (50-75) % Lymph % (Auto) (25-40) % [place] % (Auto) (3-14) % Eos % (Auto) (2-4) % Baso % (Auto) (0-2) % Neut # (Auto) (6550-8544) /uL Lymph # (Auto) (7075-4957) /uL [place] # (Auto) (0-900) /uL Eos # (Auto) (0-450) /uL Baso # (Auto) (0-100) /uL Sodium (137-145) mmol/L Potassium (3.4-5.1) mmol/L Chloride (98-107) mmol/L Carbon Dioxide (22-32) mmol/L BUN (7-17) mg/dL Creatinine (0.52-1.04) mg/dL Estimated GFR (>60) mL/min BUN/Creatinine Ratio (6-22) Glucose (70-100) mg/dL Calcium (8.4-10.2) mg/dL Total Bilirubin (0.2-1.3) mg/dL AST (14-36) IU/L ALT (<35) IU/L Alkaline Phosphatase (38-126) U/L Total Protein (6.3-8.2) g/dL Albumin (3.5-5.0) g/dL Globulin (1.7-4.1) g/dL Albumin/Globulin Ratio (1.0-2.8) TSH (0.47-4.68) uIU/mL Urine Color Urine Appearance Urine pH (4.5-8.0) Ur Specific [place] (1.000-1.035) Urine Protein (Negative) Urine Glucose (UA) (Negative) g/dL Urine Ketones (NEGATIVE) Urine Occult Blood (Negative) Urine Nitrate (Negative) Urine Bilirubin (NEGATIVE) Urine Urobilinogen (0.2) E.U./dL Ur Leukocyte Esterase (NEGATIVE) Urine RBC (0-5/HPF) Urine WBC (0-5/HPF) Ur Squamous Epith Cells (0-5/HPF) Urine Bacteria (None) Ur Culture Indicated? Urine Test (Negative) U Opiates 300ng/mL cut (Negative) Ur Oxycodone Screen (Negative) Urine Methadone Screen (Negative) Ur Barbiturates Screen (Negative) U Tricyclic Antidepress (Negative) Ur Phencyclidine Scrn (Negative) Ur Amphetamines Screen (Negative) U Methamphetamines Scrn (Negative) Ur MDMA Scrn (Ecstasy) (Negative) U Benzodiazepines Scrn (Negative) Urine Cocaine Screen (Negative) U Marijuana (THC) Screen (Negative) Ethyl Alcohol ( - 10) mg/dL SARS-CoV-2 (PCR) Negative (Negative) MDM Narrative Medical decision making narrative: Patient is calm but asking to leave. She does get amped up quite easily and has in the past. She is actually requesting medication. I have given her option of shot or pills. She is actually requesting shots. She previously has had be 52 it has seemed to work well for her. Will give that again. She is sleeping. The patient has had multiple ED visits, when she previously has had very few. Concern is sore increased level of crisis. Possible DC are when patient is more awake Patient signed out to Dr. Génesis capps: Received turned over. I am well aware of this patient and her medical issues. This is the 5th time that the patient has checked into the emergency department in the past 7 days. Patient is currently asleep. I did discuss the case with the VOA/DCR about potential [place]. Patient was evaluated by DCR plan will be is to [place] patient for her current decline in mental status. Patient is medically cleared and stable for transport. Discharge Plan Departure Patient Disposition: Xfer Psychiatric [facility]osp Clinical Impression: Acute psychosis, Amphetamine use Referrals: Ele Rodgers MD [Primary Care Provider] -
[2021-08-23] MEDS: HALOPERIDOL 5 MG/ML VIAL IM (23:52)
[2021-08-23] MEDS: LORazepam 2 MG/ML INJ IM (23:52)
[2021-08-23] MEDS: diphenhydrAMINE 50 MG/ML VIAL IM (23:53)
[2021-08-23 23:59] VITALS: BP 105/57; PULSE 104; RESP 19; TEMP 37.1; O2SAT 100
[2021-08-24 00:13] VITALS: BP 105/51; PULSE 115; RESP 24; O2SAT 100
[2021-08-24 00:23] LABS: Ur Creatinine 50 (Normal); Ur Specific Gravity >1.030 (Normal); Urine Cocaine Negative (Negative); Urine Tetrahydrocannabinol Negative (Negative); Urine pH 5 (Normal)
[2021-08-24 00:24] LABS: UR Morphine/Opiate cutoff 300 Negative (Negative); Urine Amphetamines Positive (Negative); Urine Barbiturates Negative (Negative); Urine Benzodiazepines Negative (Negative); Urine MDMA Positive (Negative); Urine Methadone Negative (Negative); Urine Methamphetamines Positive (Negative); Urine Oxycodone Negative (Negative); Urine Phencyclidine Negative (Negative); Urine Tricyclic Antidepressant Negative (Negative)
[2021-08-24 00:33] LABS: Add Manual Diff / Slide Review NO; Basophils Absolute Auto 100 /uL (0-100); Eosinophils Absolute Auto 100 /uL (0-450); Eosinophils Percent Auto 0.6 % (2-4); Hematocrit 33.8 % (36-46); Hemoglobin 11.8 g/dL (12.0-16.0); Lymphocytes Absolute Auto 1600 /uL (1100-4500); Lymphocytes Percent Auto 15.7 % (25-40); Mean Corpuscular HGB Conc 34.8 % (30-36); Mean Corpuscular Hemoglobin 29.9 PG (26-34); Mean Corpuscular Volume 85.9 fL (80-100); Monocytes Absolute Auto 700 /uL (0-900); Monocytes Percent Auto 6.7 % (3-14); Neutrophils Absolute Auto 7600 /uL (1500-7000); Platelet Count 386 X10^3/uL (150-400); Red Blood Cell Count 3.93 X10^6/uL (4.0-5.2); Red Cell Distribution Width 14.2 % (11.6-14.8)
[2021-08-24 00:45] LABS: Alanine Aminotransferase 13 IU/L (<35); Albumin 4.3 g/dL (3.5-5.0); Albumin Globulin Ratio 1.5 (1.0-2.8); Alkaline Phosphatase 61 U/L (38-126); Aspartate Aminotransferase 27 IU/L (14-36); BUN Creatinine Ratio 34.8 (6-22); Bilirubin Total 0.8 mg/dL (0.2-1.3); Blood Urea Nitrogen 23 mg/dL (7-17); Carbon Dioxide 29 mmol/L (22-32); Chloride 103 mmol/L (98-107); Estimated Glomerular Filt Rate > 60 mL/min (>60); Ethanol (ETOH) < 10 mg/dL; Globulin 2.9 g/dL (1.7-4.1); Glucose 132 mg/dL (70-100); HEMOLYSIS < 15 (0-50); Potassium 3.7 mmol/L (3.4-5.1); Sodium 137 mmol/L (137-145); Total Protein 7.2 g/dL (6.3-8.2)
[2021-08-24 01:37] LABS: Pregnancy Test Urine Negative (Negative)
[2021-08-24 01:42] LABS: Appearance Urine UA CLEAR; Bilirubin Urine UA NEGATIVE (NEGATIVE); Color Urine UA YELLOW; Glucose Urine UA TRACE g/dL (Negative); Ketones Urine UA NEGATIVE (NEGATIVE); Leukocyte Esterase Urine UA NEGATIVE (NEGATIVE); Nitrite Urine UA NEGATIVE (Negative); Occult Blood Urine UA NEGATIVE (Negative); Protein Urine UA 2+ (Negative); Specific Gravity Urine UA >=1.030 (1.000-1.035); Urobilinogen Urine UA 0.2 E.U./dL (0.2)
[2021-08-24 01:45] LABS: pH Urine UA 5.5 (4.5-8.0)
[2021-08-24 01:57] LABS: TSH w/ Reflex to FT4 1.81 uIU/mL (0.47-4.68)
[2021-08-24 02:23] LABS: Bacteria Urine Few (2-10); Culture Indicated Urine Cult Not Indicated; RBC Urine None Seen (0-5/HPF); Squamous Epithelial Cell Urine 5-10 /HPF (0-5/HPF); WBC Urine None Seen (0-5/HPF)
--- NOTE | 2021-08-24 10:05 | PC.NURSE ---
dcr eval on tablet ongoing, dcr to seek placement. covid swab collected and pending. will repeat vital signs
--- NOTE | 2021-08-24 10:16 | CM.MNRNOTE ---
Emili from DCR called and tried to speak with the patient. unfortunately the patient didn't want to continued with the conversation and just wanted to eat and go back to sleep. Emili from D[facility] said she would try to find a place for the patient to go to.
[2021-08-24 10:36] LABS: COVID19 -Nasal RAPID Negative (Negative)
[2021-08-24 10:40] VITALS: BP 91/51; PULSE 88; RESP 18; TEMP 36.8; O2SAT 91
--- NOTE | 2021-08-24 14:08 | CM.SWNOTE ---
NUTRITIONAL SERVICES COOK Note NUTRITIONAL SERVICES COOK enters room with ipad with Emili BOLDEN present, NUTRITIONAL SERVICES COOK serves patient with [place] legal documents. Patient indicates agreement and understanding. Plan: Patient to transfer to [facility] [place] bed in [facility] this evening. WYATT Rogers
--- NOTE | 2021-08-24 16:40 | PC.NURSE ---
pt having lunch. Sitting up and able to communicate her needs
--- NOTE | 2021-08-24 17:55 | PC.NURSE ---
patient is leaving for treatment center.
[2021-08-24 18:06] VITALS: BP 119/67; PULSE 63; RESP 18; O2SAT 97
== END 2021-08-24 18:17 ==
PROVIDERS: Emergency Medicine; Emergency Provider Emergency Medicine; Family Provider Family Medicine; PCP Family Medicine
DX: F23 Brief psychotic disorder (principal); F15.90 Other stimulant use, unspecified, uncomplicated; Z20.822 Contact with and (suspected) exposure to COVID-19
CPT/HCPCS: 36415; 80053; 80305; 80320; 81001; 81025; 84443; 85025; 87635; 96372; 99284; C9803; J1200; J1630; J2060

== ENCOUNTER 2021-09-14 01:22 | Emergency (ER) | payer OTHER, MEDICAID, SELFPAY ==
[2021-09-14 01:30] VITALS: BP 174/90; PULSE 90; RESP 21; TEMP 36.6; O2SAT 98
== END 2021-09-14 02:45 | disposition left against medical advice (07) ==
PROVIDERS: Emergency Provider Emergency Medicine; Family Provider Family Medicine; PCP Family Medicine
CPT/HCPCS: 99281

== ENCOUNTER 2021-09-23 01:20 | Emergency (ER) | payer OTHER, MEDICAID, SELFPAY ==
[2021-09-23 01:35] VITALS: BP 166/100; PULSE 89; RESP 18; TEMP 35.8; O2SAT 98
== END 2021-09-23 02:41 | disposition left against medical advice (07) ==
PROVIDERS: Emergency Provider Emergency Medicine; Family Provider Family Medicine; PCP Family Medicine
CPT/HCPCS: 99281

== ENCOUNTER 2021-10-02 23:20 | Emergency (ER) | payer OTHER, MEDICAID, SELFPAY ==
[2021-10-02 23:45] VITALS: BP 165/96; PULSE 103; RESP 16; TEMP 36.8; O2SAT 98; BMI 27.3
--- NOTE | 2021-10-02 23:46 | ED.PSYCH ---
HPI - Psych <Isaiah Capps DO - Last Filed: 10/03/21 07:15> General Chief Complaint: Psychiatric Symptoms Stated Complaint: scared someone is chasing her Time Seen by Provider: 10/02/21 23:44 Source: patient Mode of arrival: Ambulatory History of Present Illness HPI Narrative: Patient is a 41-year-old female. Well known to myself in this emergency department has an individual is drug abuse issues with methamphetamine. Has history of psychosis. Arrived ambulatory stating that she is scared and feels like someone is chasing her. She denied any other symptoms. She can not give specifics about who is chasing her. Related Data Home Medications Medication Instructions Recorded Confirmed Unobtainable 09/29/20 09/29/20 Allergies Allergy/AdvReac Type Severity Reaction Status Date / Time No Allergy Information Allergy Verified 09/29/20 16:51 Available Review of Systems <DO Crissy Horton Last Filed: 10/03/21 07:15> Review of Systems Narrative: Very limited review of systems secondary to patient's willingness to answer questions Psychiatric Psychiatric: Reports system reviewed and no additional complaints, except as documented Patient History <DO Crissy Horton Last Filed: 10/03/21 07:15> Medical History Drug abuse Schizophrenia Social History Smoking Status: Smoker, status unknown Smoking Status: Smoker, status unknown alcohol intake frequency: other Substance Use Type: methamphetamine and unknown Exam <DO Crissy Horton Last Filed: 10/03/21 07:15> Initial Vital Signs Initial Vital Signs: Vital Signs Temperature 98.3 F 10/02/21 23:45 Pulse Rate 103 H 10/02/21 23:45 Respiratory Rate 16 10/02/21 23:45 Blood Pressure 165/96 H 10/02/21 23:45 Pulse Oximetry 98 10/02/21 23:45 Oxygen Delivery Method 10/02/21 23:45 Const General: disheveled and No ill appearing Resp Effort & Inspection: normal respiratory effort Auscultation: clear to auscultation bilaterally Cardio Rate: regular rate Rhythm: regular rhythm Skin General: no rashes or lesions noted Neuro General: patient alert, patient awake and moves all extremities Extrem General: normal to inspection Psych Appearance: disheveled Speech and Movement: not agitated, pressured speech and restless Affect: blunted Attitude: guarded and avoids eye contact <Harvey Dupree DO - Last Filed: 10/03/21 17:46> Initial Vital Signs Initial Vital Signs: Vital Signs Temperature 98.3 F 10/02/21 23:45 Pulse Rate 103 H 10/02/21 23:45 Respiratory Rate 16 10/02/21 23:45 Blood Pressure 165/96 H 10/02/21 23:45 Pulse Oximetry 98 10/02/21 23:45 Oxygen Delivery Method 10/02/21 23:45 Course <Isaiah Capps DO - Last Filed: 10/03/21 07:15> Orders Ordered: Discontinued Medications Olanzapine (Olanzapine Odt 10 Mg Tab) 10 mg PO NOW ONE Stop: 10/02/21 23:46 Last Admin: 10/02/21 23:54 Dose: 10 mg Documented By: NR Vital Signs Vital signs: Vital Signs - 8 hr 10/03/21 10:54 Pulse Rate 80 Respiratory Rate 16 Pulse Oximetry 98 Oxygen Delivery Method Room Air <Harvey Dupree, DO - Last Filed: 10/03/21 17:46> Orders Ordered: Discontinued Medications Olanzapine (Olanzapine Odt 10 Mg Tab) 10 mg PO NOW ONE Stop: 10/02/21 23:46 Last Admin: 10/02/21 23:54 Dose: 10 mg Documented By: NR Vital Signs Vital signs: Vital Signs - 8 hr 10/03/21 10:54 Pulse Rate 80 Respiratory Rate 16 Pulse Oximetry 98 Oxygen Delivery Method Room Air MDM - Psych <Isaiah Capps DO - Last Filed: 10/03/21 07:15> MDM Narrative Medical decision making narrative: Patient disheveled. Is calm however somewhat guarded. She was directable. Agreed to take medication to try to help her calm down. She was given Zyprexa. She then slept in the emergency department. Care turned over to Dr. Dupree to follow-up and disposition. <Harvey Dupree DO - Last Filed: 10/03/21 17:46> [facility] Narrative Medical decision making narrative: Patient disheveled. Is calm however somewhat guarded. She was directable. Agreed to take medication to try to help her calm down. She was given Zyprexa. She then slept in the emergency department. Care turned over to Dr. Dupree to follow-up and disposition. [0700] (Joon) Patient received in sign out from [Génesis]. I have reviewed the clinical course and performed an independent history and physical exam. She is resting comfortably Late afternoon patient woke up and was no longer feeling unsafe, she is at her baseline and requesting discharge Discharge Plan Departure Patient Disposition: Home Clinical Impression: Acute psychosis Instructions: DI for Psychosis Activity Restrictions/Additional Instructions: *You have been diagnosed with [acute psychosis] *What to do: *Please continue to take your regular medications as directed. [ ] New medication prescriptions sent to your pharmacy: [ ] [ ] New medication written as a paper prescription [x ] No new medications given *Please follow up with your primary care provider in 2-3 days, call for an appointment. Let them know you were seen in the Emergency Department and that we ask that you be seen in follow up. We will electronically transmit a record of today's note if your PCP is in our system *If you do not have a primary care provider please contact the [facility] Resource line at [phone]. They will ask some questions about your medical history and help get you set up with a doctor in the community. *Return to Emergency Department if you should have any new, worsening or concerning symptoms, such as [fever greater than 101 F, shaking chills, worsening pain, persistent vomiting or other bothersome symptoms] Prescriptions: No Action Unobtainable Referrals: Ele Rodgers MD [Primary Care Provider] - Visit Report Forms: Patient Portal/API
[2021-10-02] MEDS: OLANZapine ODT 10 MG TAB PO (23:54)
--- NOTE | 2021-10-03 04:31 | PC.NURSE ---
Pt has been sleeping since soon after arrival. Pt appears in no acute distress, respirations observed from the door are unlabored.
[2021-10-03 04:32] VITALS: RESP 16
[2021-10-03 10:54] VITALS: PULSE 80; RESP 16; O2SAT 98
== END 2021-10-03 10:54 | disposition home or self-care (01) ==
PROVIDERS: Emergency Provider Emergency Medicine; Family Provider Family Medicine; PCP Family Medicine
DX: F23 Brief psychotic disorder (principal)
CPT/HCPCS: 99283

== ENCOUNTER 2021-10-05 23:22 | Emergency (ER) | payer OTHER, MEDICAID, SELFPAY ==
[2021-10-05 23:25] VITALS: BP 158/102; PULSE 95; RESP 17; TEMP 36.4; O2SAT 98; BMI 28.1
--- NOTE | 2021-10-05 23:28 | ED_ITS ---
HPI - General Adult <Isaiah Capps DO - Last Filed: 10/06/21 07:14> General Chief complaint: Psychiatric Symptoms Stated complaint: mental health Time Seen by Provider: 10/05/21 23:28 Source: patient Mode of arrival: EMS History of Present Illness HPI narrative: Patient is a 41-year-old female. Well known to myself this hospital. She is homeless. She does have a history of paranoia. Also has a history of drug abuse. She was seen in the emergency department by myself earlier in the week for very similar symptoms that she presents with today. She states that this evening she was walking outside. She thought that she heard a saw going which made her very paranoid and thinking that people were after her. Was brought in by EMS half year police were called as well. Patient is very disheveled but at baseline for her. She states that she is supposed to be on Zyprexa but I am unsure as to whether not she is taking this medication. She agrees to take medicine to help her calm down. Related Data Home Medications Medication Instructions Recorded Confirmed Unobtainable 09/29/20 09/29/20 Allergies Allergy/AdvReac Type Severity Reaction Status Date / Time No Allergy Information Allergy Verified 09/29/20 16:51 Available Review of Systems <DO Crissy Horton Last Filed: 10/06/21 07:14> Cardiovascular Comments: Denies chest pain Respiratory Comments: Denies shortness of breath Gastrointestinal Comments: No abdominal pain Psychiatric Comments: Paranoid, feels like someone is after Patient History <DO Crissy Horton Last Filed: 10/06/21 07:14> Medical History Drug abuse Schizophrenia Social History Smoking Status: Smoker, status unknown Smoking Status: Smoker, status unknown alcohol intake frequency: other Substance Use Type: methamphetamine and unknown Exam <DO Crissy Horton Last Filed: 10/06/21 07:14> Initial Vital Signs Initial Vital Signs: Vital Signs Temperature 97.5 F L 10/05/21 23:25 Pulse Rate 95 H 10/05/21 23:25 Respiratory Rate 17 10/05/21 23:25 Blood Pressure 158/102 H 10/05/21 23:25 Pulse Oximetry 98 10/05/21 23:25 Oxygen Delivery Method 10/05/21 23:25 Const General: No well groomed, disheveled and No ill appearing HENMT Head: normal to inspection Resp Effort & Inspection: normal respiratory effort Cardio Rate: regular rate Skin Other: Dirty skin, no rashes Extrem General: normal to inspection Psych Other: Patient is ambulatory. He is calm and cooperative. Does express paranoia. Is agreeable to take medication to help her ?calm down? this is per request <Cb Weber MD - Last Filed: 10/06/21 19:01> Initial Vital Signs Initial Vital Signs: Vital Signs Temperature 97.5 F L 10/05/21 23:25 Pulse Rate 95 H 10/05/21 23:25 Respiratory Rate 17 10/05/21 23:25 Blood Pressure 158/102 H 10/05/21 23:25 Pulse Oximetry 98 10/05/21 23:25 Oxygen Delivery Method 10/05/21 23:25 Course <Isaiah Capps DO - Last Filed: 10/06/21 07:14> Orders Ordered: Discontinued Medications Olanzapine (Olanzapine Odt 10 Mg Tab) 10 mg PO NOW ONE Stop: 10/05/21 23:29 Last Admin: 10/05/21 23:41 Dose: 10 mg Documented By: KH Vital Signs Vital signs: Vital Signs - 8 hr 10/05/21 23:25 Temperature 97.5 F L Pulse Rate 95 H Respiratory Rate 17 Blood Pressure 158/102 H Pulse Oximetry 98 Oxygen Delivery Method Room Air <Cb Webre MD - Last Filed: 10/06/21 19:01> Course Course Narrative: October 06, 2021 at 7:00 a.m.. Sign out from Dr. Capps, patient her for possible hearing sounds outside last night. Patient has history of psychiatric illness and is homeless. Patient had denied any SI or HI. Patient received along the pain last night. Has been resting. Not agitated. Not combative. At this time no labs were indicated. Patient at baseline behavior according to staff. This is not new for her. Need to reassess after patient awakes for further assessment if social work needs to be involved. Otherwise no new concerns and possible for discharge Orders Ordered: Discontinued Medications Olanzapine (Olanzapine Odt 10 Mg Tab) 10 mg PO NOW ONE Stop: 07/15/22 23:29 Last Admin: 10/05/21 23:41 Dose: 10 mg Documented By: GUTIERREZ Reevaluation(s) Reevaluation #1: Patient has been sleeping through the night. No issues. Spoke with patient, no SI or HI. Patient wants some apple juice before she leaves. Time: 09:59 Vital Signs Vital signs: Vital Signs - 8 hr 10/05/21 23:25 Temperature 97.5 F L Pulse Rate 95 H Respiratory Rate 17 Blood Pressure 158/102 H Pulse Oximetry 98 Oxygen Delivery Method Room Air Medical Decision Making <Isaiah Capps DO - Last Filed: 10/06/21 07:14> [facility] Narrative Medical decision making narrative: Patient is very disheveled but this is baseline for her. She is calm. She did take Zyprexa willingly. She was given a shower. Patient has been calm and sleeping since given the medication. Care turned over to Dr. Webb to follow- up when patient awakes and disposition. <Cb Weber MD - Last Filed: 10/06/21 19:01> Differential Diagnosis Differential Diagnosis: Schizophrenia/psychosis/substance abuse [facility] Narrative Medical decision making narrative: Patient is very disheveled but this is baseline for her. She is calm. She did take Zyprexa willingly. She was given a shower. Patient has been calm and sleeping since given the medication. Care turned over to Dr. Webb to follow- up when patient awakes and disposition. Appropriate for discharge home. No SI or HI. Patient does have history of substance abuse and schizophrenia. Uncertain if she is compliant with her medications but presentation not concerning for anything harmful to herself or others. Patient in no distress. No laboratory studies or imaging indicated. No trauma. No recent illness. Social work not indicated this time as patient has chronic schizophrenia and in no acute distress Discharge Plan Departure Patient Disposition: Home Clinical Impression: Chronic schizophrenia Instructions: DI for Schizoaffective Disorder Activity Restrictions/Additional Instructions: Return if worsening questions or concerns. See family doctor in a week for re- evaluation. Call provided primary care referral phone number to establish family doctor. Call [phone]. Continue home medications. Do not do drugs. Prescriptions: No Action Unobtainable Referrals: Ele Rodgers MD [Primary Care Provider] - Visit Report Forms: Patient Portal/API
[2021-10-05] MEDS: OLANZapine ODT 10 MG TAB PO (23:41)
--- NOTE | 2021-10-06 02:10 | PC.NURSE ---
pt resting quietly in room
[2021-10-06 10:11] VITALS: BP 117/72; PULSE 73; RESP 18; O2SAT 98
== END 2021-10-06 10:12 | disposition home or self-care (01) ==
PROVIDERS: Emergency Provider Emergency Medicine; Family Provider Family Medicine; PCP Family Medicine
DX: F20.9 Schizophrenia, unspecified (principal)
CPT/HCPCS: 99283

== ENCOUNTER 2021-10-09 19:26 | Emergency (ER) | payer OTHER, MEDICAID, SELFPAY ==
[2021-10-09 19:59] VITALS: BP 109/54; PULSE 99; RESP 22; TEMP 37.4; O2SAT 99
--- NOTE | 2021-10-09 20:07 | CM.SWNOTE ---
PRODUCE ASSISTANT Assessment PRODUCE ASSISTANT - Concrete Vault Maker Assessment PRODUCE ASSISTANT/Concrete Vault Maker Assessment Time Spent with Patient Start date 10/09/21 Visit Start Time 19:35 End date 10/09/21 Visit End Time 19:45 Total time Care Management spent on 10 minutes patient visit-in minutes Mental Health Screening Include Onset, Duration, Intensity Presenting Problem Patient presents via EMS this evening due to concern for paranoia. People are out to get me. Patient states she feels safe in the ED. It is reported by EMS that patient has not been following through with prescribed medication. Patient is family face in the community. Precipitating Event(s) This is patient's 4th ED visit in the last 2 weeks due to similar concerns. Patient has hx of Schizophrenia and methamphetamine use. Patient was an [facility] patient on 08/24/21 and went to [facility] [facility]. Patient Strengths Patient presents as calm and is seeking help. Current Behavioral Health Provider(s) Patient endorses hx at [facility] Include Facility, Provider, Ph. # Health Psych. Hx Mental Health and Chemical Patient has hx of Dependency Schizophrenia and Methamphetamine use. Family Hx of Behavioral Abuse Unknown Psychiatric Hospitalizations (date(s)/ [facility] [employer] [facility]: 08/24/21 location) Per Peyton: [facility]: -03/01/21 [facility]: 01/09/21-01/25/21 [facility]: 12/14/20- 12/18/20 Psychosocial information & Support Patient is 41 y/o female who Systems is currently homeless in [facility] and well known in the community. It is unknown who patient's current supports are. School/Work Unknown Legal Concerns Legal Matters - Outstanding Issues Unknown, none reported Mental Status Orientation (Person/Place/Time) A/O to self and person Stated Mood alright Affect (Congruent with Mood?) euthymic, anxious, full range, congruent with mood Thought Content - Specify/Describe Patient presents as paranoid Obsessions, Delusions, Hallucinations and responding to internal stimuli. Patient presents talking to self. Patient endorses that she does not feel safe and states I feel like people are out to get me . Thought Processes (Dkoivnv-Fucfgmad-Jrak goal directed Jiuzuwon-Rqzxklyw-Vmrqwnmfxc- Qhugrmjvreckox-Fblztpb-Fqwrbcqlwvbq- Thought Blocking) Speech (Pyfgkx-Ssnx-Jjiyvnc-Rapid-Soft- normal/rapid Loud-Pressured) Motor (Xgjgcl-Xjcwgiceg-Jsrl-Other) excessive, patient unable to sit still at times and prefers to stand by her door and then chooses to lay down. When standing patient talks to self responding to internal stimuli Insight (Aqvm-Skjl-Nqhy/Limited) limited Judgement (Pyim-Mxwp-Bxfv/Limited) limited Impulse Control (Adequate-Impaired) adequate Memory (Odoxwmbcj-Onaytn-Hsycrj, intact, not formally assessed Impaired-Intact) Concentration (Intact-Impaired) fairly intact, patient does not want to have long conversation Attention (Intact-Impaired) fairly intact Behavior (Appropriate-Inappropriate) appropriate Additional Comment Patient presents as cooperative and calm. Risk Assessment Suicidal Ideation (Plan) No Homicidal Ideation (Plan) No Intervention Intervention PRODUCE ASSISTANT enters room to meet with patient. Patient endorses her paranoia and concern that someone is out to get her. This is patient's 4th ED encounter within two weeks and patient has discharged to the community after each visit or left prior to being seen. Patient has known hx of Schizophrenia and Methamphetamine use. Per EMS it was reported that patient has not been following up with medications. Patient endorses she has not followed up with providers or doctors recently. When asked, patient states she is seeking safety here at the ED and not seeking to go to [facility]. It is the opinion of this PRODUCE ASSISTANT that patient is gravely disabled, unable to manage medications independently and follow through with daily activities. Patient continues to present to ED for similar concerns as she reports feeling unsafe and reporting paranoia. It is the opinion of this PRODUCE ASSISTANT that patient would benefit from DCR assessment once medically clear to pursue [facility] placement if applicable. PRODUCE ASSISTANT to review the above with ED provider Dr. Dupree who has yet to medically clear patient at this time. Plan RA Plan ED team to pursue [facility] dispatch when patient is medically clear or identify safe plan of d/c to the community JENNY Rogers
[2021-10-09 20:20] LABS: Add Manual Diff / Slide Review NO; Basophils Absolute Auto 100 /uL (0-100); Eosinophils Absolute Auto 200 /uL (0-450); Eosinophils Percent Auto 3.3 % (2-4); Lymphocytes Absolute Auto 1500 /uL (1100-4500); Lymphocytes Percent Auto 19.7 % (25-40); Mean Corpuscular HGB Conc 33.3 % (30-36); Mean Corpuscular Hemoglobin 28.7 PG (26-34); Mean Corpuscular Volume 86.3 fL (80-100); Monocytes Absolute Auto 600 /uL (0-900); Monocytes Percent Auto 7.4 % (3-14); Neutrophils Absolute Auto 5100 /uL (1500-7000); Neutrophils Percent Auto 68.6 % (50-75); Platelet Count 383 X10^3/uL (150-400); Red Blood Cell Count 3.82 X10^6/uL (4.0-5.2); Red Cell Distribution Width 14.5 % (11.6-14.8); White Blood Cell Count 7.5 X10^3/uL (4.5-11.0)
[2021-10-09 20:37] LABS: Alanine Aminotransferase 12 IU/L (<35); Albumin 3.7 g/dL (3.5-5.0); Albumin Globulin Ratio 1.3 (1.0-2.8); Alkaline Phosphatase 50 U/L (38-126); Aspartate Aminotransferase 26 IU/L (14-36); BUN Creatinine Ratio 32.8 (6-22); Bilirubin Total 0.3 mg/dL (0.2-1.3); Blood Urea Nitrogen 21 mg/dL (7-17); Calcium 8.4 mg/dL (8.4-10.2); Carbon Dioxide 28 mmol/L (22-32); Chloride 105 mmol/L (98-107); Estimated Glomerular Filt Rate > 60 mL/min (>60); Ethanol (ETOH) < 10 mg/dL; Globulin 2.9 g/dL (1.7-4.1); Glucose 113 mg/dL (70-100); HEMOLYSIS 18 (0-50); Sodium 139 mmol/L (137-145); Total Protein 6.6 g/dL (6.3-8.2)
[2021-10-09 21:20] VITALS: BP 126/64; PULSE 85; RESP 18; O2SAT 99
[2021-10-09 21:48] LABS: UR Morphine/Opiate cutoff 300 Negative (Negative); Ur Creatinine Normal (Normal); Ur Specific Gravity Normal (Normal); Urine Amphetamines Positive (Negative); Urine Barbiturates Negative (Negative); Urine Benzodiazepines Negative (Negative); Urine Cocaine Negative (Negative); Urine MDMA Negative (Negative); Urine Methadone Negative (Negative); Urine Methamphetamines Positive (Negative); Urine Oxycodone Negative (Negative); Urine Phencyclidine Negative (Negative); Urine Tetrahydrocannabinol Negative (Negative); Urine Tricyclic Antidepressant Negative (Negative); Urine pH Normal (Normal)
[2021-10-09 22:06] LABS: COVID19 -Nasal RAPID Negative (Negative)
--- NOTE | 2021-10-09 22:48 | ED_ITS ---
HPI - Psych General Chief Complaint: Psychiatric Symptoms Stated Complaint: Paranoid Time Seen by Provider: 10/09/21 19:30 Source: EMS Mode of arrival: EMS History of Present Illness HPI Narrative: 41-year-old female smoker with history of psychosis and schizophrenia as well as illicit drug use including methamphetamines as well known to myself in this facility and presents for the 4th time this week due to acute psychosis. She denies any suicidal or homicidal ideation but is profoundly paranoid is convinced that people are chasing her an out to get her. It is unclear if she is having active auditory or visual hallucinations she is pacing and difficult to communicate with. She denies recent drug use and states she thinks she has not been taking her medications as directed. She denies other symptoms such as chest pain, fever or trouble breathing. She was last admitted to Psych facility in early August Related Data Home Medications Medication Instructions Recorded Confirmed Unobtainable 09/29/20 09/29/20 Allergies Allergy/AdvReac Type Severity Reaction Status Date / Time No Known Drug Allergies Allergy Verified 10/09/21 19:51 Review of Systems Review of Systems Narrative: GENERAL: Denies chills, fatigue, malaise, fever, sweats. HEENT: Denies sinus pain, ear pain, sore throat, difficulty swallowing, dizziness. RESPIRATORY: Denies dyspnea, cough, wheezing, hemoptysis, sputum. CARDIOVASCULAR: Denies chest pain, palpitations, orthopnea, edema, GASTROINTESTINAL: Denies nausea, vomiting, abdominal pain, diarrhea, const ipation, melena. : Denies dysuria, frequency, incontinence, hematuria, urinary retention. MUSCULOSKELETAL: denies weakness, joint pain, or bony pain SKIN: Denies rash, skin lesions, or other NEUROLOGIC: Denies weakness, headache, numbness, change in speech, confusion, seizures, incoordination. PSYCHIATRIC: See HPI. 12 point review of systems is negative except for those stated above Patient History Medical History Drug abuse Schizophrenia Social History Smoking Status: Smoker, status unknown Smoking Status: Smoker, status unknown alcohol intake frequency: other Substance Use Type: methamphetamine and unknown Exam Narrative Exam Narrative: GENERAL: 41] year old patient appears older than stated age. Well-developed patient, in moderate distress distress. Disheveled, visibly upset, paranoid HEAD: Atraumatic. Normocephalic. EYES: Pupils equal round and reactive. Extraocular motions intact. No scleral icterus. No injection or drainage. ENT: Nose without bleeding, purulent drainage. Throat without erythema, tonsillar hypertrophy or exudate. Airway patent. NECK: Trachea midline. Non tender CARDIOVASCULAR: Regular rate and rhythm without murmurs, gallops, or rubs. RESPIRATORY: Clear to auscultation. Breath sounds equal bilaterally. No wheezes, rales, or rhonchi. GASTROINTESTINAL: Abdomen soft, non-tender, nondistended. EXTREMITIES: No edema or joint tenderness. BACK: Nontender without deformity or crepitance. No flank tenderness. NEURO: Cranial nerves 2-12 grossly intact SKIN: No rash or erythema of visible areas Initial Vital Signs Initial Vital Signs: Vital Signs Temperature 99.3 F 10/09/21 19:59 Pulse Rate 99 H 10/09/21 19:59 Respiratory Rate 22 10/09/21 19:59 Blood Pressure 109/54 L 10/09/21 19:59 Pulse Oximetry 99 10/09/21 19:59 Oxygen Delivery Method 10/09/21 19:59 Course Orders Ordered: ED Orders 10/09/21 19:32 Consult to TWISTER DOFFER - [employer] Urgent 10/09/21 20:10 Complete Blood Count AUTO DIFF Stat Comprehensive Metabolic Panel Stat Ethanol (ETOH) Stat 10/09/21 21:30 Test Urine Stat Urine Drug Screen, Rapid Stat 10/09/21 21:47 COVID19 -Nasal RAPID/Pre-Proc Stat 10/09/21 22:52 EKG-12 Lead Stat Consultations Consultation #1: [facility] DO[facility] consultation Vital Signs Vital signs: Vital Signs - 8 hr 10/09/21 19:59 10/09/21 21:20 Temperature 99.3 F Pulse Rate 99 H 85 Respiratory Rate 22 18 Blood Pressure 109/54 L 126/64 Pulse Oximetry 99 99 Oxygen Delivery Method Room Air Room Air MDM - Psych Lab Data Result diagrams: 10/09/21 20:10 10/09/21 20:10 Labs: Lab Results 10/09/21 10/09/21 10/09/21 Range/Units 20:10 20:10 21:30 WBC 7.5 (4.5-11.0) X10^3/uL RBC 3.82 L (4.0-5.2) X10^6/uL Hgb 11.0 L (12.0-16.0) g/dL Hct 33.0 L (36-46) % MCV 86.3 (80-100) fL MCH 28.7 (26-34) PG MCHC 33.3 (30-36) % RDW 14.5 (11.6-14.8) % Plt Count 383 (150-400) X10^3/uL Neut % (Auto) 68.6 (50-75) % Lymph % (Auto) 19.7 L (25-40) % [place] % (Auto) 7.4 (3-14) % Eos % (Auto) 3.3 (2-4) % Baso % (Auto) 1.0 (0-2) % Neut # (Auto) 5100 (1620-4017) /uL Lymph # (Auto) 1500 (4391-4316) /uL [place] # (Auto) 600 (0-900) /uL Eos # (Auto) 200 (0-450) /uL Baso # (Auto) 100 (0-100) /uL Sodium 139 (137-145) mmol/L Potassium 4.0 (3.4-5.1) mmol/L Chloride 105 (98-107) mmol/L Carbon Dioxide 28 (22-32) mmol/L BUN 21 H (7-17) mg/dL Creatinine 0.64 (0.52-1.04) mg/dL Estimated GFR > 60 (>60) mL/min BUN/Creatinine Ratio 32.8 H (6-22) Glucose 113 H (70-100) mg/dL Calcium 8.4 (8.4-10.2) mg/dL Total Bilirubin 0.3 (0.2-1.3) mg/dL AST 26 (14-36) IU/L ALT 12 (<35) IU/L Alkaline Phosphatase 50 (38-126) U/L Total Protein 6.6 (6.3-8.2) g/dL Albumin 3.7 (3.5-5.0) g/dL Globulin 2.9 (1.7-4.1) g/dL Albumin/Globulin Ratio 1.3 (1.0-2.8) Urine Test (Negative) U Opiates 300ng/mL cut Negative (Negative) Ur Oxycodone Screen Negative (Negative) Urine Methadone Screen Negative (Negative) Ur Barbiturates Screen Negative (Negative) U Tricyclic Antidepress Negative (Negative) Ur Phencyclidine Scrn Negative (Negative) Ur Amphetamines Screen Positive H (Negative) U Methamphetamines Scrn Positive H (Negative) Ur MDMA Scrn (Ecstasy) Negative (Negative) U Benzodiazepines Scrn Negative (Negative) Urine Cocaine Screen Negative (Negative) U Marijuana (THC) Screen Negative (Negative) Ethyl Alcohol < 10 ( - 10) mg/dL SARS-CoV-2 (PCR) (Negative) 10/09/21 10/09/21 Range/Units 21:30 21:47 WBC (4.5-11.0) X10^3/uL RBC (4.0-5.2) X10^6/uL Hgb (12.0-16.0) g/dL Hct (36-46) % MCV (80-100) fL MCH (26-34) PG MCHC (30-36) % RDW (11.6-14.8) % Plt Count (150-400) X10^3/uL Neut % (Auto) (50-75) % Lymph % (Auto) (25-40) % [place] % (Auto) (3-14) % Eos % (Auto) (2-4) % Baso % (Auto) (0-2) % Neut # (Auto) (2025-4995) /uL Lymph # (Auto) (1280-9006) /uL [place] # (Auto) (0-900) /uL Eos # (Auto) (0-450) /uL Baso # (Auto) (0-100) /uL Sodium (137-145) mmol/L Potassium (3.4-5.1) mmol/L Chloride (98-107) mmol/L Carbon Dioxide (22-32) mmol/L BUN (7-17) mg/dL Creatinine (0.52-1.04) mg/dL Estimated GFR (>60) mL/min BUN/Creatinine Ratio (6-22) Glucose (70-100) mg/dL Calcium (8.4-10.2) mg/dL Total Bilirubin (0.2-1.3) mg/dL AST (14-36) IU/L ALT (<35) IU/L Alkaline Phosphatase (38-126) U/L Total Protein (6.3-8.2) g/dL Albumin (3.5-5.0) g/dL Globulin (1.7-4.1) g/dL Albumin/Globulin Ratio (1.0-2.8) Urine Test Negative (Negative) U Opiates 300ng/mL cut (Negative) Ur Oxycodone Screen (Negative) Urine Methadone Screen (Negative) Ur Barbiturates Screen (Negative) U Tricyclic Antidepress (Negative) Ur Phencyclidine Scrn (Negative) Ur Amphetamines Screen (Negative) U Methamphetamines Scrn (Negative) Ur MDMA Scrn (Ecstasy) (Negative) U Benzodiazepines Scrn (Negative) Urine Cocaine Screen (Negative) U Marijuana (THC) Screen (Negative) Ethyl Alcohol ( - 10) mg/dL SARS-CoV-2 (PCR) Negative (Negative) Urine Dip Bedside Urine Glucose Negative Bedside Urine Bilirubin - Negative Bedside Urine Ketone - Negative Urine Specific [place] 1.030 Bedside Urine Occult Blood +/- Bedside Urine pH 6.0 Bedside Urine Protein +/- 15 Bedside Urine Urobilinogen - Negative Bedside Urine Nitrite - Negative Bedside Urine Leukocytes - Negative Esterase MDM Narrative Medical decision making narrative: Patient presents for the 4th time in the past 1-2 weeks with increasing severity of acute psychosis and paranoia. She is likely medically noncompliant. She is clearly gravely disabled and a danger to herself. Is my opinion that the patient would benefit from hospitalization and she clearly does not understand this need nor have the capacity to comply, TWISTER DOFFER and I sure the opinion that she is appropriate for DCR evaluation. She is been medically cleared and DCR contacted [phone] - patient accepted at [facility]. Ambulance to arrive within the [facility] Critical Care Time Critical Care Time Critical Care Time: Yes Total Critical Care Time: 30 Attestation: The high probability of a clinically significant, sudden or life threatening deterioration of the [Neuro/CV] system(s) required my full and direct attention, intervention and personal management. The aggregate critical care time was [30] minutes. This time is in addition to time spent performing reported procedures but includes the following: [x] Data Review and interpretation [x] Patient assessment and monitoring of vital signs [x] Documentation x[] Medication orders and management Discharge Plan Departure Patient Disposition: Xfer Psychiatric Hosp Clinical Impression: Schizophrenia, Gravely disabled Referrals: Ele Rodgers MD [Primary Care Provider] -
--- NOTE | 2021-10-09 23:11 | PC.NURSE ---
EVS starting to mop and wax floors with loud machines causing patient to become upset. Staff cracked her door open to prevent most of the noise from upsetting patient.
[2021-10-09 23:14] LABS: Pregnancy Test Urine Negative (Negative)
== END 2021-10-10 02:52 ==
PROVIDERS: Emergency Provider Emergency Medicine; Family Provider Family Medicine; PCP Family Medicine
DX: F20.9 Schizophrenia, unspecified (principal); Z20.822 Contact with and (suspected) exposure to COVID-19; R07.9 Chest pain, unspecified
CPT/HCPCS: 80053; 80305; 80320; 81003; 81025; 85025; 87635; 93005; 93010; 99284; C9803

== ENCOUNTER 2021-11-05 23:26 | Emergency (ER) | payer OTHER, MEDICAID, SELFPAY ==
[2021-11-06 00:20] VITALS: BP 146/92; PULSE 104; RESP 19; TEMP 36.6; O2SAT 95
--- NOTE | 2021-11-06 00:26 | ED.PSYCH ---
HPI - Psych General Chief Complaint: Psychiatric Symptoms Stated Complaint: Not feeling good and feels panic and unsafe Time Seen by Provider: 11/06/21 00:23 Source: patient Mode of arrival: Ambulatory History of Present Illness HPI Narrative: This is a 41-year-old female smoker with history of psychosis and schizophrenia as well as methamphetamine use well known to the facility. Patient was recently sent to inpatient psychiatric facility in September approximately a month ago. Patient self presents this evening feeling like someone was following her feeling and feeling unsafe. Patient denies any thoughts of harming herself, no thoughts of harming others. She denies any active hallucinations. She states she just felt unsafe and thought that we would be a safe place to come to. Patient states she was an inpatient facility she states it did seem to be helpful. She is not seeking placement today. Patient speech is clear, she states that she is part of the PACT team and that she has been taking medications although last dose she states was 2 days ago. She denies any other symptoms currently. Related Data Home Medications Medication Instructions Recorded Confirmed Unobtainable 09/29/20 09/29/20 Allergies Allergy/AdvReac Type Severity Reaction Status Date / Time No Known Drug Allergies Allergy Verified 11/06/21 00:23 Review of Systems Review of Systems ROS Unobtainable: All systems reviewed & are unremarkable except as noted in HPI and below Patient History Medical History Drug abuse Schizophrenia Social History Smoking Status: Smoker, status unknown Smoking Status: Smoker, status unknown alcohol intake frequency: other Substance Use Type: methamphetamine and unknown Exam Narrative Exam Narrative: GENERAL: Alert and oriented, disheveled, patient is calm, speech is clear HEENT: Head normocephalic, atraumatic, EOMI, pupils reactive, face symmetric, moist mucous membranes NECK: Supple, full range of motion CARDIOVASCULAR: Regular rate and rhythm without murmurs, rubs or gallops. RESPIRATORY: Breath sounds equal bilaterally, no wheezes rales or rhonchi. ABDOMEN: Soft, nontender. Normoactive bowel sounds all 4 quadrants. No guarding or rebound, rigidity, no mass : No CVA tenderness EXTREMITIES: Normal range of motion, no clubbing or edema. Neurovascularly intact NEUROLOGICAL: Cranial nerves II through XII grossly intact. Moving all extremities SKIN: Warm, dry, no petechiae, no rashes or lesions. PSYCH: expresses paranoia, no specific hallucinations at this time, denies thoughts of harm to self or others. Initial Vital Signs Initial Vital Signs: Vital Signs Temperature 98 F 11/06/21 00:20 Pulse Rate 104 H 11/06/21 00:20 Respiratory Rate 19 11/06/21 00:20 Blood Pressure 146/92 H 11/06/21 00:20 Pulse Oximetry 95 11/06/21 00:20 Oxygen Delivery Method 11/06/21 00:20 Course Orders Ordered: Discontinued Medications Diphenhydramine HCl (Diphenhydramine 50 Mg/Ml Vial) 50 mg IM NOW ONE Stop: 11/06/21 00:59 Last Admin: 11/06/21 00:58 Dose: Not Given Documented By: JOSE Haloperidol (Haloperidol 5 Mg/Ml Vial) 5 mg IM NOW ONE Stop: 11/06/21 00:59 Last Admin: 11/06/21 00:58 Dose: Not Given Documented By: JOSE Vital Signs Vital signs: Vital Signs - 8 hr 11/06/21 00:20 Temperature 98 F Pulse Rate 104 H Respiratory Rate 19 Blood Pressure 146/92 H Pulse Oximetry 95 Oxygen Delivery Method Room Air MDM - Psych MDM Narrative Medical decision making narrative: This is a 41-year-old female with known schizophrenia and amphetamine abuse. Patient has been CA'd placed by DCR as recently as a month ago. Patient presents this evening with paranoia but is fairly calm. She is requesting a place to sleep tonight she does not wish to be placed at this time and I do not feel that he would meet criteria at this moment to be considered gravely disabled and in voluntarily placed. Discharge Plan Departure Patient Disposition: Home Clinical Impression: Chronic schizophrenia Activity Restrictions/Additional Instructions: Please follow up with your PACT team. I would recommend continuing to take your medication. You are welcome to return at any time if you feel your unsafe if you feel you are a danger to yourself or others or if you have other concerns. Prescriptions: No Action Unobtainable Referrals: Ele Rodgers MD [Primary Care Provider] - Visit Report Forms: Patient Portal/API
--- NOTE | 2021-11-06 02:55 | PC.NURSE ---
Pt asking to stay for a place to sleep until morning as pt has nobody to pick her up and she feels scared to leave at night when it is dark.
== END 2021-11-06 06:45 | disposition home or self-care (01) ==
PROVIDERS: Emergency Provider Emergency Medicine; Family Provider Family Medicine; PCP Family Medicine
DX: F20.9 Schizophrenia, unspecified (principal)
CPT/HCPCS: 99283

== ENCOUNTER 2021-11-11 23:06 | Emergency (ER) | payer OTHER, MEDICAID, SELFPAY ==
[2021-11-11 23:27] VITALS: PULSE 78; RESP 20; TEMP 36.9; O2SAT 98
--- NOTE | 2021-11-12 05:17 | ED_ITS ---
HPI - Psych General Chief Complaint: Psychiatric Symptoms Stated Complaint: Paranoid Time Seen by Provider: 11/12/21 05:17 Source: patient and EMS Mode of arrival: EMS History of Present Illness HPI Narrative: 41-year-old woman with a history of chronic schizophrenia, methamphetamine use disorder and other specified psychosis who is frequently seen in the emergency department for [facility] overnight. In mid September she was hospitalized at [facility] for grave disability. She presents today complaining that she feels unsafe. She is clearly responding to internal stimuli. Patient does have PAC T team resources in [place]. It appears that she in the past she has been on Invega and various doses of Zyprexa but most recent records from [facility] suggest 2 mg of risperidal b.i.d. with no continued Zyprexa. She prese nts to the emergency room responding to internal stimuli and complaining that she feels unsafe. She is having difficulty deciding if she would prefer to stay or leave. She appears fatigued but is able to carry on a reasonable conversation, moderate eye contact and does not appear acutely psychotic. She states that she meets up with her PACT team for medication administration. She is not quite sure what she is on but believes it is olanzapine. She believes she took her last dose yesterday. She states that she is not having any fevers, pain, cough, headaches. Related Data Home Medications Medication Instructions Recorded Confirmed Unobtainable 09/29/20 09/29/20 Allergies Allergy/AdvReac Type Severity Reaction Status Date / Time No Known Drug Allergies Allergy Verified 11/06/21 00:23 Review of Systems Review of Systems Narrative: Remainder of complete review of systems is otherwise unremarkable except for that included in the HPI. Patient History Medical History Drug abuse Schizophrenia Social History Smoking Status: Smoker, status unknown Smoking Status: Smoker, status unknown alcohol intake frequency: other Substance Use Type: methamphetamine and unknown Exam Initial Vital Signs Initial Vital Signs: Vital Signs Temperature 98.5 F 11/11/21 23:27 Pulse Rate 78 11/11/21 23:27 Respiratory Rate 20 11/11/21 23:27 Pulse Oximetry 98 11/11/21 23:27 Oxygen Delivery Method 11/11/21 23:27 General: Disheveled, appears fatigued Respiratory: Able to speak in full sentences, no obvious respiratory distress Skin: No obvious rashes, warm and dry Neurologic: Grossly intact no obvious asymmetries or abnormalities Psych: Responding to internal stimuli but easily redirected, calm, nonpressured speech, polite with requests Course Vital Signs Vital signs: Vital Signs - 8 hr 11/11/21 23:27 Temperature 98.5 F Pulse Rate 78 Respiratory Rate 20 Pulse Oximetry 98 Oxygen Delivery Method Room Air MDM - Psych MDM Narrative Medical decision making narrative: 41-year-old woman with schizophrenia, methamphetamine use who seems to be at her baseline today. She does not appear to be in any acute physical nor psychiatric distress. When she requested to simply sleep in the emergency room we declined and she asked if she could check out. I believe that she is safe to do so. She chose to leave prior to receiving written discharge instructions. Discharge Plan Departure Patient Disposition: Home Clinical Impression: Chronic schizophrenia Prescriptions: No Action Unobtainable Referrals: Ele Rodgers MD [Primary Care Provider] -
== END 2021-11-12 05:39 | disposition home or self-care (01) ==
PROVIDERS: Emergency Provider Emergency Medicine; Family Provider Family Medicine; PCP Family Medicine
DX: R20.9 Unspecified disturbances of skin sensation (principal)
CPT/HCPCS: 99281

== ENCOUNTER 2021-11-18 17:17 | Emergency (ER) | payer OTHER, MEDICAID, SELFPAY ==
[2021-11-18 17:29] VITALS: BP 143/83; PULSE 77; RESP 16; TEMP 36.9; O2SAT 97; BMI 25.2
[2021-11-18] MEDS: OLANZapine ODT 10 MG TAB PO (17:38)
[2021-11-18 18:37] LABS: Add Manual Diff / Slide Review NO; Basophils Absolute Auto 0 /uL (0-100); Basophils Percent Auto 0.4 % (0-2); Eosinophils Absolute Auto 100 /uL (0-450); Eosinophils Percent Auto 1.8 % (2-4); Hematocrit 30.2 % (36-46); Hemoglobin 10.3 g/dL (12.0-16.0); Lymphocytes Absolute Auto 1300 /uL (1100-4500); Lymphocytes Percent Auto 17.9 % (25-40); Mean Corpuscular HGB Conc 34.1 % (30-36); Mean Corpuscular Hemoglobin 28.7 PG (26-34); Mean Corpuscular Volume 84.1 fL (80-100); Monocytes Absolute Auto 600 /uL (0-900); Monocytes Percent Auto 8.6 % (3-14); Neutrophils Absolute Auto 5200 /uL (1500-7000); Neutrophils Percent Auto 71.3 % (50-75); Platelet Count 336 X10^3/uL (150-400); Red Cell Distribution Width 14.8 % (11.6-14.8); White Blood Cell Count 7.3 X10^3/uL (4.5-11.0)
[2021-11-18 18:43] LABS: Alanine Aminotransferase 11 IU/L (<35); Albumin 3.8 g/dL (3.5-5.0); Albumin Globulin Ratio 1.3 (1.0-2.8); Alkaline Phosphatase 56 U/L (38-126); Aspartate Aminotransferase 20 IU/L (14-36); BUN Creatinine Ratio 17.8 (6-22); Bilirubin Total 0.5 mg/dL (0.2-1.3); Blood Urea Nitrogen 18 mg/dL (7-17); Calcium 7.8 mg/dL (8.4-10.2); Carbon Dioxide 27 mmol/L (22-32); Chloride 104 mmol/L (98-107); Estimated Glomerular Filt Rate > 60 mL/min (>60); Ethanol (ETOH) < 10 mg/dL; Globulin 2.9 g/dL (1.7-4.1); Glucose 130 mg/dL (70-100); HEMOLYSIS < 15 (0-50); Potassium 3.4 mmol/L (3.4-5.1); Sodium 135 mmol/L (137-145); Total Protein 6.7 g/dL (6.3-8.2)
[2021-11-18 19:14] LABS: TSH w/ Reflex to FT4 2.25 uIU/mL (0.47-4.68)
[2021-11-18 23:54] LABS: Pregnancy Test Urine Negative (Negative)
[2021-11-19] LABS: Ur Creatinine 50 (Normal); Ur Specific Gravity >1.030 (Normal)
[2021-11-19 00:01] LABS: UR Morphine/Opiate cutoff 300 Negative (Negative); Urine Amphetamines Positive (Negative); Urine Barbiturates Negative (Negative); Urine Benzodiazepines Negative (Negative); Urine Cocaine Negative (Negative); Urine MDMA Positive (Negative); Urine Methamphetamines Positive (Negative); Urine Phencyclidine Negative (Negative); Urine pH 5 (Normal)
[2021-11-19 00:02] LABS: Urine Methadone Negative (Negative); Urine Oxycodone Negative (Negative); Urine Tricyclic Antidepressant Negative (Negative)
[2021-11-19 00:25] LABS: Appearance Urine UA CLEAR; Bilirubin Urine UA NEGATIVE (NEGATIVE); Color Urine UA YELLOW; Glucose Urine UA NEGATIVE (Negative); Ketones Urine UA NEGATIVE (NEGATIVE); Leukocyte Esterase Urine UA TRACE (NEGATIVE); Nitrite Urine UA NEGATIVE (Negative); Occult Blood Urine UA 3+ (Negative); Protein Urine UA TRACE (Negative); Specific Gravity Urine UA 1.025 (1.000-1.035); Urobilinogen Urine UA 0.2 E.U./dL (0.2)
[2021-11-19 00:47] LABS: Bacteria Urine Few (2-10); Culture Indicated Urine Specimen Cultured; RBC Urine 1-5/HPF (0-5/HPF); Squamous Epithelial Cell Urine 0-1 /HPF (0-5/HPF); WBC Urine 1-5/HPF (0-5/HPF)
[2021-11-19 04:01] VITALS: RESP 16
--- NOTE | 2021-11-19 04:25 | ED.PSYCH ---
HPI - Psych General Chief Complaint: Psychiatric Symptoms Stated Complaint: [place] by PD Time Seen by Provider: 11/18/21 17:25 History of Present Illness HPI Narrative: 41-year-old female known well to facility with frequent visits for schizophrenia, medical noncompliance, and methamphetamine use presents by [employer] for hopeful [place]. Per [employer] police she was running in the middle the traffic and was making nonsensical comments and was visibly paranoid. She admits to feeling paranoid but is very nonspecific about how she is feeling. It is unclear she is taking her medications. She denies any recent trauma but admits to using methamphetamines. She denies homicidal or suicidal ideation Related Data Home Medications Medication Instructions Recorded Confirmed Unobtainable 09/29/20 09/29/20 Allergies Allergy/AdvReac Type Severity Reaction Status Date / Time No Known Drug Allergies Allergy Verified 11/06/21 00:23 Review of Systems Review of Systems Narrative: GENERAL: Denies chills, fatigue, malaise, fever, sweats. HEENT: Denies sinus pain, ear pain, sore throat, difficulty swallowing, dizziness. RESPIRATORY: Denies dyspnea, cough, wheezing, hemoptysis, sputum. CARDIOVASCULAR: Denies chest pain, palpitations, orthopnea, edema, GASTROINTESTINAL: Denies nausea, vomiting, abdominal pain, diarrhea, constipation, melena. : Denies dysuria, frequency, incontinence, hematuria, urinary retention. MUSCULOSKELETAL: denies weakness, joint pain, or bony pain SKIN: Denies rash, skin lesions, or other NEUROLOGIC: Denies weakness, headache, numbness, change in speech, confusion, seizures, incoordination. PSYCHIATRIC: See HPI 12 point review of systems is negative except for those stated above Patient History Medical History Drug abuse Schizophrenia Social History Smoking Status: Smoker, status unknown Smoking Status: Smoker, status unknown alcohol intake frequency: other Substance Use Type: methamphetamine and unknown Exam Narrative Exam Narrative: GENERAL: [41] year old patient appears stated age. She is unkempt and a bit disheveled, pacing the room and speaking rapidly HEAD: Atraumatic. Normocephalic. EYES: Pupils equal round and reactive. Extraocular motions intact. No scleral icterus. No injection or drainage. ENT: Poor dentition throughout, moist mucous membranes, airway patent NECK: Trachea midline. Non tender CARDIOVASCULAR: Regular rate and rhythm without murmurs, gallops, or rubs. RESPIRATORY: Clear to auscultation. Breath sounds equal bilaterally. No wheezes, rales, or rhonchi. GASTROINTESTINAL: Abdomen soft, non-tender, nondistended. EXTREMITIES: No edema or joint tenderness. BACK: Nontender without deformity or crepitance. No flank tenderness. NEURO: AOx3. SKIN: No rash or erythema of visible areas Initial Vital Signs Initial Vital Signs: Vital Signs Temperature 98.4 F 11/18/21 17:29 Pulse Rate 77 11/18/21 17:29 Respiratory Rate 16 11/18/21 17:29 Blood Pressure 143/83 H 11/18/21 17:29 Pulse Oximetry 97 11/18/21 17:29 Oxygen Delivery Method 11/18/21 17:29 Course Course Course Narrative: Patient willingly takes Zyprexa 10 mg at 5:25 p.m. 0400-patient is still resting comfortably Orders Ordered: ED Orders 11/18/21 23:27 Test Urine Stat Urinalysis and Microscopic Stat Urine Culture Stat Urine Drug Screen, Rapid Stat Discontinued Medications Olanzapine (Olanzapine Odt 10 Mg Tab) 10 mg PO NOW ONE Stop: 11/18/21 17:26 Last Admin: 11/18/21 17:38 Dose: 10 mg Documented By: VIVIEN Vital Signs Vital signs: Vital Signs - 8 hr 11/19/21 04:01 11/19/21 04:31 Pulse Rate 90 Respiratory Rate 16 16 Blood Pressure 134/84 Pulse Oximetry 99 Oxygen Delivery Method Room Air MDM - Psych Lab Data Result diagrams: 11/18/21 18:18 11/18/21 18:18 Labs: Lab Results 11/18/21 11/18/21 11/18/21 Range/Units 18:18 18:18 18:18 WBC 7.3 (4.5-11.0) X10^3/uL RBC 3.60 L (4.0-5.2) X10^6/uL Hgb 10.3 L (12.0-16.0) g/dL Hct 30.2 L (36-46) % MCV 84.1 (80-100) fL MCH 28.7 (26-34) PG MCHC 34.1 (30-36) % RDW 14.8 (11.6-14.8) % Plt Count 336 (150-400) X10^3/uL Neut % (Auto) 71.3 (50-75) % Lymph % (Auto) 17.9 L (25-40) % [place] % (Auto) 8.6 (3-14) % Eos % (Auto) 1.8 L (2-4) % Baso % (Auto) 0.4 (0-2) % Neut # (Auto) 5200 (9608-0205) /uL Lymph # (Auto) 1300 (2509-9618) /uL [place] # (Auto) 600 (0-900) /uL Eos # (Auto) 100 (0-450) /uL Baso # (Auto) 0 (0-100) /uL Sodium 135 L (137-145) mmol/L Potassium 3.4 (3.4-5.1) mmol/L Chloride 104 (98-107) mmol/L Carbon Dioxide 27 (22-32) mmol/L BUN 18 H (7-17) mg/dL Creatinine 1.01 (0.52-1.04) mg/dL Estimated GFR > 60 (>60) mL/min BUN/Creatinine Ratio 17.8 (6-22) Glucose 130 H (70-100) mg/dL Calcium 7.8 L (8.4-10.2) mg/dL Total Bilirubin 0.5 (0.2-1.3) mg/dL AST 20 (14-36) IU/L ALT 11 (<35) IU/L Alkaline Phosphatase 56 (38-126) U/L Total Protein 6.7 (6.3-8.2) g/dL Albumin 3.8 (3.5-5.0) g/dL Globulin 2.9 (1.7-4.1) g/dL Albumin/Globulin Ratio 1.3 (1.0-2.8) TSH 2.25 (0.47-4.68) uIU/mL Urine Color Urine Appearance Urine pH (4.5-8.0) Ur Specific [place] (1.000-1.035) Urine Protein (Negative) Urine Glucose (UA) (Negative) g/dL Urine Ketones (NEGATIVE) Urine Occult Blood (Negative) Urine Nitrate (Negative) Urine Bilirubin (NEGATIVE) Urine Urobilinogen (0.2) E.U./dL Ur Leukocyte Esterase (NEGATIVE) Urine RBC (0-5/HPF) Urine WBC (0-5/HPF) Ur Squamous Epith Cells (0-5/HPF) Urine Bacteria (None) Ur Culture Indicated? Urine Test (Negative) U Opiates 300ng/mL cut (Negative) Ur Oxycodone Screen (Negative) Urine Methadone Screen (Negative) Ur Barbiturates Screen (Negative) U Tricyclic Antidepress (Negative) Ur Phencyclidine Scrn (Negative) Ur Amphetamines Screen (Negative) U Methamphetamines Scrn (Negative) Ur MDMA Scrn (Ecstasy) (Negative) U Benzodiazepines Scrn (Negative) Urine Cocaine Screen (Negative) U Marijuana (THC) Screen Ethyl Alcohol < 10 ( - 10) mg/dL 11/18/21 11/18/21 11/18/21 Range/Units 23:27 23:27 23:27 WBC (4.5-11.0) X10^3/uL RBC (4.0-5.2) X10^6/uL Hgb (12.0-16.0) g/dL Hct (36-46) % MCV (80-100) fL MCH (26-34) PG MCHC (30-36) % RDW (11.6-14.8) % Plt Count (150-400) X10^3/uL Neut % (Auto) (50-75) % Lymph % (Auto) (25-40) % [place] % (Auto) (3-14) % Eos % (Auto) (2-4) % Baso % (Auto) (0-2) % Neut # (Auto) (4634-1746) /uL Lymph # (Auto) (9106-2779) /uL [place] # (Auto) (0-900) /uL Eos # (Auto) (0-450) /uL Baso # (Auto) (0-100) /uL Sodium (137-145) mmol/L Potassium (3.4-5.1) mmol/L Chloride (98-107) mmol/L Carbon Dioxide (22-32) mmol/L BUN (7-17) mg/dL Creatinine (0.52-1.04) mg/dL Estimated GFR (>60) mL/min BUN/Creatinine Ratio (6-22) Glucose (70-100) mg/dL Calcium (8.4-10.2) mg/dL Total Bilirubin (0.2-1.3) mg/dL AST (14-36) IU/L ALT (<35) IU/L Alkaline Phosphatase (38-126) U/L Total Protein (6.3-8.2) g/dL Albumin (3.5-5.0) g/dL Globulin (1.7-4.1) g/dL Albumin/Globulin Ratio (1.0-2.8) TSH (0.47-4.68) uIU/mL Urine Color Yellow Urine Appearance Clear Urine pH 6.0 (4.5-8.0) Ur Specific [place] 1.025 (1.000-1.035) Urine Protein Trace H (Negative) Urine Glucose (UA) Negative (Negative) g/dL Urine Ketones Negative (NEGATIVE) Urine Occult Blood 3+ H (Negative) Urine Nitrate Negative (Negative) Urine Bilirubin Negative (NEGATIVE) Urine Urobilinogen 0.2 (0.2) E.U./dL Ur Leukocyte Esterase Trace H (NEGATIVE) Urine RBC 1-5/hpf (0-5/HPF) Urine WBC 1-5/hpf (0-5/HPF) Ur Squamous Epith Cells 0-1 /hpf (0-5/HPF) Urine Bacteria Few (2-10) H (None) Ur Culture Indicated? Specimen cultured Urine Test Negative (Negative) U Opiates 300ng/mL cut Negative (Negative) Ur Oxycodone Screen Negative (Negative) Urine Methadone Screen Negative (Negative) Ur Barbiturates Screen Negative (Negative) U Tricyclic Antidepress Negative (Negative) Ur Phencyclidine Scrn Negative (Negative) Ur Amphetamines Screen Positive H (Negative) U Methamphetamines Scrn Positive H (Negative) Ur MDMA Scrn (Ecstasy) Positive H (Negative) U Benzodiazepines Scrn Negative (Negative) Urine Cocaine Screen Negative (Negative) U Marijuana (THC) Screen TNP Ethyl Alcohol ( - 10) mg/dL MDM Narrative Medical decision making narrative: Patient has been resting all night and upon speaking with her this morning she feels much better. She is not suicidal homicidal and no longer feels paranoid. I asked if she would like to speak with our drug abuse social worker she stated no. I asked if I could write her any of her medications and she states she has them. She is been given return precautions and questions answered to her apparent satisfaction Discharge Plan Departure Patient Disposition: Home Clinical Impression: Chronic schizophrenia Instructions: DI for Schizophrenia Activity Restrictions/Additional Instructions: There is no evidence of an emergent or life threatening illness at this time, but follow up with your doctor in 1-2 days is recommended nonetheless to continue to rule out serious underlying causes of your symptoms. Please call the office for an appointment. Please return to the Emergency Department for any worsening or persistent symptoms. Please take medications as directed. Prescriptions: No Action Unobtainable Referrals: Ele Rodgers MD [Primary Care Provider] -
[2021-11-19 04:31] VITALS: BP 134/84; PULSE 90; RESP 16; O2SAT 99
== END 2021-11-19 06:58 | disposition home or self-care (01) ==
PROVIDERS: Emergency Medicine; Emergency Provider Emergency Medicine; Family Provider Family Medicine; PCP Family Medicine
DX: F20.9 Schizophrenia, unspecified (principal)
CPT/HCPCS: 36415; 80053; 80305; 80320; 81001; 81025; 84443; 85025; 87086; 99283

== ENCOUNTER 2021-11-23 18:57 | Emergency (ER) | payer OTHER, MEDICAID, SELFPAY ==
[2021-11-23 18:50] VITALS: BP 200/113; PULSE 101; RESP 14; TEMP 36.7; O2SAT 99
--- NOTE | 2021-11-23 19:26 | PC.NURSE ---
pt was found to be running around and screaming at people, EMS was called and pt was given medication to calm her, upon arrival to Ed pt resp even and unlabored, pt is resting with eyes closed placed on monitor with side rails up x 2
--- NOTE | 2021-11-23 19:26 | CM.SWNOTE ---
COILED TUBING OPERATOR Note Patient is 41 y/o female who presents to ED via EMS and LE. Per EMS, patient hallucinating and behaving erratically in public reporting that people were punching her in the face. EMS medics gave patient ketamine prior to arrival to ED. COILED TUBING OPERATOR unable to meet with patient at this time due to patient's current presentation after ketamine dosage. COILED TUBING OPERATOR to f/u with patient assessment after further ED evaluation and upon medical clearance of patient. Roselyn Michel, [employer]
[2021-11-23 19:58] LABS: Add Manual Diff / Slide Review NO; Basophils Absolute Auto 100 /uL (0-100); Basophils Percent Auto 0.7 % (0-2); Eosinophils Absolute Auto 100 /uL (0-450); Eosinophils Percent Auto 0.8 % (2-4); Hematocrit 34.7 % (36-46); Hemoglobin 11.7 g/dL (12.0-16.0); Lymphocytes Absolute Auto 1400 /uL (1100-4500); Lymphocytes Percent Auto 14.9 % (25-40); Mean Corpuscular HGB Conc 33.8 % (30-36); Mean Corpuscular Hemoglobin 28.5 PG (26-34); Mean Corpuscular Volume 84.5 fL (80-100); Monocytes Absolute Auto 800 /uL (0-900); Monocytes Percent Auto 8.4 % (3-14); Neutrophils Absolute Auto 7000 /uL (1500-7000); Neutrophils Percent Auto 75.2 % (50-75); Platelet Count 434 X10^3/uL (150-400); Red Cell Distribution Width 15.2 % (11.6-14.8); White Blood Cell Count 9.3 X10^3/uL (4.5-11.0)
[2021-11-23 20:10] LABS: Alanine Aminotransferase 11 IU/L (<35); Albumin 4.2 g/dL (3.5-5.0); Albumin Globulin Ratio 1.2 (1.0-2.8); Alkaline Phosphatase 65 U/L (38-126); Aspartate Aminotransferase 21 IU/L (14-36); BUN Creatinine Ratio 22.9 (6-22); Bilirubin Total 0.6 mg/dL (0.2-1.3); Blood Urea Nitrogen 16 mg/dL (7-17); Calcium 8.6 mg/dL (8.4-10.2); Carbon Dioxide 29 mmol/L (22-32); Chloride 105 mmol/L (98-107); Estimated Glomerular Filt Rate > 60 mL/min (>60); Ethanol (ETOH) < 10 mg/dL; Globulin 3.5 g/dL (1.7-4.1); Glucose 108 mg/dL (70-100); HEMOLYSIS < 15 (0-50); Potassium 3.4 mmol/L (3.4-5.1); Sodium 138 mmol/L (137-145); Total Protein 7.7 g/dL (6.3-8.2)
[2021-11-23] MEDS: HALOPERIDOL 5 MG/ML VIAL IM (20:43)
[2021-11-23] MEDS: diazePAM 10 MG/2 ML SYRINGE 5 MG IM (20:44)
--- NOTE | 2021-11-23 20:45 | PC.NURSE ---
pt woke very paranoid and agitated screaming and coming out of room and lying on the floor attempts to reorient pt to place and situation unsuccessful pt was moved to Rm 13 and medicated
--- NOTE | 2021-11-24 04:27 | ED.AMS ---
HPI - Altered Mental Status General Chief Complaint: Altered Mental Status Stated Complaint: Delusional Time Seen by Provider: 11/23/21 19:26 Source: EMS Mode of arrival: EMS History of Present Illness HPI narrative: 41-year-old female known well to facility with frequent visits for schizophrenia, medical noncompliance, and methamphetamine use presents by EMS for evaluation. Police were called to see her downtown today, she was acting abnormally and apparently causing a scene in the street. She was unable to be calmed down with attempts at verbal deescalation and EMS was called. She was escalating significantly and EMS gave ketamine due to excited delirium and transported her here. On her arrival she was sleeping, breathing normally and guarding her airway Related Data Home Medications Medication Instructions Recorded Confirmed Unobtainable 09/29/20 09/29/20 Allergies Allergy/AdvReac Type Severity Reaction Status Date / Time No Known Drug Allergies Allergy Verified 11/06/21 00:23 Review of Systems Review of Systems ROS Unobtainable: Unobtainable due to mental status/LOC Patient History Medical History Drug abuse Schizophrenia Social History Smoking Status: Smoker, status unknown Smoking Status: Smoker, status unknown alcohol intake frequency: other Substance Use Type: methamphetamine and unknown Exam Narrative Exam Narrative: GENERAL: [41] year old patient appears stated age. Disheveled and unkempt, in no distress, resting comfortably, guarding her airway HEAD: Atraumatic. Normocephalic. EYES: Pupils equal round and reactive. Extraocular motions intact. No scleral icterus. No injection or drainage. ENT: Nose without bleeding, purulent drainage. Throat without erythema, tonsillar hypertrophy or exudate. Airway patent. NECK: Trachea midline. Non tender CARDIOVASCULAR: Regular rate and rhythm without murmurs, gallops, or rubs. RESPIRATORY: Clear to auscultation. Breath sounds equal bilaterally. No wheezes, rales, or rhonchi. GASTROINTESTINAL: Abdomen soft, non-tender, nondistended. EXTREMITIES: No edema or joint tenderness. BACK: Nontender without deformity or crepitance. No flank tenderness. NEURO: AOx3. SKIN: No rash or erythema of visible areas Initial Vital Signs Initial Vital Signs: Vital Signs Temperature 98.0 F 11/23/21 18:50 Pulse Rate 101 H 11/23/21 18:50 Respiratory Rate 14 11/23/21 18:50 Blood Pressure 200/113 H 11/23/21 18:50 Pulse Oximetry 99 11/23/21 18:50 Oxygen Delivery Method 11/23/21 18:50 Oxygen Flow Rate 4 11/23/21 18:50 Course Course Course Narrative: Soon after arrival patient started to wake up, she then was screaming and yelling, unable to be interviewed, at times hitting the wall. Extensive discussions and attempts at discussion by nursing and myself, proved unsuccessful. She had come out of her room and sat on the floor in the middle of the emergency department and was screaming and then rolling around on the floor. Eventually she agreed to take olanzapine as it often helps but soon after she spit it out on the floor, put it back in her mouth and then spit on the floor again. She began screaming and yelling again was eventually taken into room 13. She was asking for help to get calm, she laid down and was given Haldol and ativan to help her calm down. Orders Ordered: Discontinued Medications Diazepam (Diazepam 10 Mg/2 Ml Syringe) 5 mg IM NOW ONE Stop: 11/23/21 20:35 Last Admin: 11/23/21 20:44 Dose: 5 mg Documented By: GUTIERREZ Diphenhydramine HCl (Diphenhydramine 50 Mg/Ml Vial) 50 mg IM NOW ONE Stop: 11/23/21 20:35 Last Admin: 11/24/21 00:15 Dose: Not Given Documented By: GUTIERREZ Haloperidol (Haloperidol 5 Mg/Ml Vial) 5 mg IM NOW ONE Stop: 11/23/21 20:35 Last Admin: 11/23/21 20:43 Dose: 5 mg Documented By: GUTIERREZ Olanzapine (Olanzapine Odt 10 Mg Tab) 20 mg PO NOW ONE Stop: 11/23/21 20:29 Last Admin: 11/23/21 21:43 Dose: Not Given Documented By: GUTIERREZ Reevaluation(s) Reevaluation #1: Patient feeling significant improvement. She is up, speaking clearly and ambulating with a steady gait. She is asking for discharge. She denies any suicidal or homicidal ideation MDM - Altered Mental Status Lab Data Result diagrams: 11/23/21 19:40 11/23/21 19:40 Labs: Lab Results 11/23/21 11/23/21 Range/Units 19:40 19:40 WBC 9.3 (4.5-11.0) X10^3/uL RBC 4.10 (4.0-5.2) X10^6/uL Hgb 11.7 L (12.0-16.0) g/dL Hct 34.7 L (36-46) % MCV 84.5 (80-100) fL MCH 28.5 (26-34) PG MCHC 33.8 (30-36) % RDW 15.2 H (11.6-14.8) % Plt Count 434 H (150-400) X10^3/uL Neut % (Auto) 75.2 H (50-75) % Lymph % (Auto) 14.9 L (25-40) % [place] % (Auto) 8.4 (3-14) % Eos % (Auto) 0.8 L (2-4) % Baso % (Auto) 0.7 (0-2) % Neut # (Auto) 7000 (3041-3598) /uL Lymph # (Auto) 1400 (2386-2849) /uL [place] # (Auto) 800 (0-900) /uL Eos # (Auto) 100 (0-450) /uL Baso # (Auto) 100 (0-100) /uL Sodium 138 (137-145) mmol/L Potassium 3.4 (3.4-5.1) mmol/L Chloride 105 (98-107) mmol/L Carbon Dioxide 29 (22-32) mmol/L BUN 16 (7-17) mg/dL Creatinine 0.70 (0.52-1.04) mg/dL Estimated GFR > 60 (>60) mL/min BUN/Creatinine Ratio 22.9 H (6-22) Glucose 108 H (70-100) mg/dL Calcium 8.6 (8.4-10.2) mg/dL Total Bilirubin 0.6 (0.2-1.3) mg/dL AST 21 (14-36) IU/L ALT 11 (<35) IU/L Alkaline Phosphatase 65 (38-126) U/L Total Protein 7.7 (6.3-8.2) g/dL Albumin 4.2 (3.5-5.0) g/dL Globulin 3.5 (1.7-4.1) g/dL Albumin/Globulin Ratio 1.2 (1.0-2.8) Ethyl Alcohol < 10 ( - 10) mg/dL Discharge Plan Departure Patient Disposition: Home Clinical Impression: Schizophrenia Instructions: DI for Schizophrenia Activity Restrictions/Additional Instructions: There is no evidence of an emergent or life threatening illness at this time, but follow up with your doctor in 1-2 days is recommended nonetheless to continue to rule out serious underlying causes of your symptoms. Please call the office for an appointment. Please return to the Emergency Department for any worsening or persistent symptoms. Please take medications as directed. Prescriptions: No Action Unobtainable Referrals: Ele Rodgers MD [Primary Care Provider] -
== END 2021-11-24 07:03 | disposition home or self-care (01) ==
PROVIDERS: Emergency Provider Emergency Medicine; Family Provider Family Medicine; PCP Family Medicine
DX: F20.9 Schizophrenia, unspecified (principal); R07.9 Chest pain, unspecified
CPT/HCPCS: 80053; 80320; 85025; 93005; 96372; 99284; J1630; J3360

== ENCOUNTER 2021-11-26 21:32 | Emergency (ER) | payer OTHER, MEDICAID, SELFPAY ==
[2021-11-26 21:35] VITALS: BP 135/80; PULSE 97; RESP 14; TEMP 36.9; O2SAT 99; BMI 28.1
--- NOTE | 2021-11-26 21:47 | ED_ITS ---
HPI - General Adult General Chief complaint: Psychiatric Symptoms Stated complaint: Scared someone is out to get me Time Seen by Provider: 11/26/21 21:32 History of Present Illness HPI narrative: 41-year-old woman with a history of schizophrenia, psychosis unspecified and methamphetamine use disorder along with intermittent episodes of homelessness presents to the emergency department complaining that she is scared that people are out to get her. Her most recent hospitalization was October 18 with discharge on October 19 from [facility]. Discharge medications are supposed to be risperidone 2 mg twice a day and Invega monthly. She is a frequent visitor to [facility]. She presents this evening in her usual state of dishevelment, she is calm, focused, able to carry on complete and coherent conversation. She is not responding to internal stimuli. States that she would like to stay overnight because she does not feel safe at her friend's house. When asked if she has any concerns regarding housing or food and she replies no. Discharge notes from her inpatient stay indicate that she was going to have follow-up with PAC Team resource is in [place]. Khoi's states that she has been meeting with somebody regularly at the [facility] and has been staying with a friend. I do not have any weighted confirm any of this at 10:00 p.m. christine. She denies any physical ailments, fever, cough, vomiting, abdominal pain, chest pain, palpitations Related Data Home Medications Medication Instructions Recorded Confirmed Unobtainable 09/29/20 09/29/20 Allergies Allergy/AdvReac Type Severity Reaction Status Date / Time No Known Drug Allergies Allergy Verified 11/06/21 00:23 Review of Systems Review of Systems Narrative: Remainder of complete review of systems is otherwise unremarkable except for that included in the HPI. Patient History Medical History Drug abuse Schizophrenia Social History Smoking Status: Smoker, status unknown Smoking Status: Smoker, status unknown alcohol intake frequency: other Substance Use Type: methamphetamine and unknown Exam Initial Vital Signs Initial Vital Signs: General: Disheveled but initially in no acute distress. Well-nourished well- developed HEENT: Moist mucous membranes, normal sclera with reactive pupils, Respiratory: Full and symmetrical air movement Cardiac: Regular rate and rhythm Abdomen: Soft, nontender, no flank pain Skin: Warm and dry, physically very dirty from being outside Neurologic: Grossly neurologically intact with no obvious asymmetries or abnormalities, stable gait Extremities: No trauma, well perfused Psych: Cooperative, non pressured speech, not responding to auditory or visual hallucinations. Coherent thought process. Mild paranoia with her chronic complaint that ?someone is out to get me? Medical Decision Making MDM Narrative Medical decision making narrative: 41-year-old woman with schizophrenia and methamphetamine use disorder. She is not in acute psychiatric or medical distress this evening. She is wanting a place to sleep. Explained to her that the ER is not able to provide space to sleep in the absence of acute medical issues. Recent discharge notes from [facility] had indicated that she was supposed to be taking 2 mg of Risperdal twice a day. She is also supposed to be receiving Invega as an injection. I do not know when her last shot was. She is given her 2 mg of risperidone all to help with her chronic background ?someone is out to get me? paranoia. She states that she can contact her PAC Team in the morning and I encouraged her to do so. At this point she is not in medical or psychiatric crisis and she is discharged from the Emergency Department Discharge Plan Departure Patient Disposition: Home Clinical Impression: Schizophrenia Qualifiers: Schizophrenia type: paranoid schizophrenia Qualified Code(s): F20.0 - Paranoid schizophrenia Instructions: DI for Schizophrenia Activity Restrictions/Additional Instructions: I am sorry we were not able to offer you a place to sleep this evening. You were given 2 mg of risperidone to help with the feelings of being frightened. I would encourage you to touch base with your PAC Team in the morning. Prescriptions: No Action Unobtainable Referrals: Ele Rodgers MD [Primary Care Provider] -
[2021-11-26] MEDS: risperiDONE 1 MG TABLET 2 MG PO (22:07)
--- NOTE | 2021-11-26 22:07 | PC.NURSE ---
Pt frequently walking out of room in hallway despite being reminded countless times by various staff members that she needs to remain in her room due to safety for other pts' privacy. No evidence of learning noted.
--- NOTE | 2021-11-26 22:10 | PC.NURSE ---
Patient pacing hallways and redirected to room multiple times.
== END 2021-11-26 22:19 | disposition home or self-care (01) ==
PROVIDERS: Emergency Provider Emergency Medicine; Family Provider Family Medicine; PCP Family Medicine
DX: F20.0 Paranoid schizophrenia (principal)
CPT/HCPCS: 99283

== ENCOUNTER 2021-11-30 14:33 | Emergency (ER) | payer OTHER, MEDICAID, SELFPAY ==
[2021-11-30 14:48] VITALS: BP 155/70; PULSE 109; RESP 20; TEMP 36.6; O2SAT 98; BMI 25.4
[2021-11-30] MEDS: MIDAZOLAM 5 MG/ML VIAL IM (15:16)
[2021-11-30] MEDS: HALOPERIDOL 5 MG/ML VIAL IM (15:16)
--- NOTE | 2021-11-30 15:20 | ED.PSYCH ---
HPI - Psych <Cb Weber MD - Last Filed: 12/13/21 07:21> General Chief Complaint: Psychiatric Symptoms Stated Complaint: Psych issues, brought by EMS Time Seen by Provider: 11/30/21 15:03 Source: patient Mode of arrival: EMS History of Present Illness HPI Narrative: Patient has history of paranoid schizophrenia. Patient also has history of methamphetamine abuse. Patient has had multiple visits to this department for the same complaints of acting erratic. Patient is in the hallway acting very erratic, pulled down her pants in the hallway. Would not stay in her room. Kept on ruminating someone is after her. This is a common theme for her with visual and auditory hallucinations and delusions. At times she is directable. She is placed in room 7 which is in eye view with staff and she feels much more comfortable. Patient does desire medications to help with her anxiety. Review of medical charts and visits she has had Haldol and benzodiazepines with good success. Unable to get complete review of systems due to acute psychosis. Patient brought in by EMS. Patient is homeless. Related Data Home Medications Medication Instructions Recorded Confirmed Unobtainable 09/29/20 09/29/20 Allergies Allergy/AdvReac Type Severity Reaction Status Date / Time No Known Drug Allergies Allergy Verified 11/30/21 14:47 Review of Systems <Cb Weber MD - Last Filed: 12/13/21 07:21> Review of Systems ROS Unobtainable: Unobtainable due to mental condition Patient History <Cb Weber MD - Last Filed: 12/13/21 07:21> Medical History Drug abuse Schizophrenia Social History Smoking Status: Smoker, status unknown Smoking Status: Smoker, status unknown alcohol intake frequency: other Substance Use Type: methamphetamine and unknown Exam <Cb Weber MD - Last Filed: 12/13/21 07:21> Narrative Exam Narrative: GENERAL: in no distress, not toxic not dyspneic HEAD: Normocephalic. EYES: Pupils equal round No scleral icterus. NECK: Trachea midline. CARDIOVASCULAR: Regular rate and rhythm without murmurs RESPIRATORY: Clear to auscultation. Breath sounds equal bilaterally. No wheezes, rales, or rhonchi. EXTREMITIES: No gross deformities. BACK: No flank tenderness. NEURO: Patient is alert and states her name. Otherwise is very agitated, walking in the hallway without any antalgic gait. No facial droop SKIN: Warm and dry PSYCH: Patient is very anxious. Pacing the hallway, responding to voices. Believing someone is chasing her. At time is directable. But mostly needs redirection. Not combative. Initial Vital Signs Initial Vital Signs: Vital Signs Temperature 97.8 F 11/30/21 14:48 Pulse Rate 109 H 11/30/21 14:48 Respiratory Rate 20 11/30/21 14:48 Blood Pressure 155/70 H 11/30/21 14:48 Pulse Oximetry 98 11/30/21 14:48 Oxygen Delivery Method 11/30/21 14:48 <Isaiah Capps DO - Last Filed: 12/01/21 06:00> Initial Vital Signs Initial Vital Signs: Vital Signs Temperature 97.8 F 11/30/21 14:48 Pulse Rate 109 H 11/30/21 14:48 Respiratory Rate 20 11/30/21 14:48 Blood Pressure 155/70 H 11/30/21 14:48 Pulse Oximetry 98 11/30/21 14:48 Oxygen Delivery Method 11/30/21 14:48 Course <Cb Weber MD - Last Filed: 12/13/21 07:21> Course Course Narrative: November 30, 2021 at 6:00 p.m.. Sign out to Roselyn Perez, social work is aware patient is here. May need DCR/CA. Patient received Haldol and Versed for agitation. Will need to reassess once metabolized. Drug screen noted. Polysubstance abuse. Orders Ordered: Discontinued Medications Haloperidol (Haloperidol 5 Mg/Ml Vial) 5 mg IM NOW ONE Stop: 11/30/21 15:06 Last Admin: 11/30/21 15:16 Dose: 5 mg Documented By: VIVIEN Midazolam HCl (Midazolam 5 Mg/Ml Vial) 5 mg IM NOW ONE Stop: 11/30/21 15:06 Last Admin: 11/30/21 15:16 Dose: 5 mg Documented By: VIVIEN Vital Signs Vital signs: Vital Signs - 8 hr 11/30/21 19:43 11/30/21 19:26 11/30/21 19:51 Pulse Rate 91 H 90 107 H Respiratory Rate 18 Blood Pressure 118/56 L Pulse Oximetry 99 99 98 Oxygen Delivery Method Room Air Oxygen Flow Rate 0 11/30/21 19:52 11/30/21 19:52 11/30/21 20:00 Pulse Rate 92 H 91 H Respiratory Rate Blood Pressure 130/75 Pulse Oximetry 97 97 Oxygen Delivery Method Oxygen Flow Rate <Isaiah Capps DO - Last Filed: 12/01/21 06:00> Orders Ordered: Discontinued Medications Haloperidol (Haloperidol 5 Mg/Ml Vial) 5 mg IM NOW ONE Stop: 11/30/21 15:06 Last Admin: 11/30/21 15:16 Dose: 5 mg Documented By: VIVIEN Midazolam HCl (Midazolam 5 Mg/Ml Vial) 5 mg IM NOW ONE Stop: 11/30/21 15:06 Last Admin: 11/30/21 15:16 Dose: 5 mg Documented By: VIVIEN Vital Signs Vital signs: Vital Signs - 8 hr 11/30/21 19:43 11/30/21 19:26 11/30/21 19:51 Pulse Rate 91 H 90 107 H Respiratory Rate 18 Blood Pressure 118/56 L Pulse Oximetry 99 99 98 Oxygen Delivery Method Room Air Oxygen Flow Rate 0 11/30/21 19:52 11/30/21 19:52 11/30/21 20:00 Pulse Rate 92 H 91 H Respiratory Rate Blood Pressure 130/75 Pulse Oximetry 97 97 Oxygen Delivery Method Oxygen Flow Rate [facility] - Psych <Cb Weber MD - Last Filed: 12/13/21 07:21> Lab Data Result diagrams: 11/30/21 17:20 11/30/21 17:20 Labs: Lab Results 11/30/21 11/30/21 11/30/21 Range/Units 14:50 17:20 17:20 WBC 7.3 (4.5-11.0) X10^3/uL RBC 3.94 L (4.0-5.2) X10^6/uL Hgb 11.2 L (12.0-16.0) g/dL Hct 33.8 L (36-46) % MCV 85.8 (80-100) fL MCH 28.3 (26-34) PG MCHC 33.0 (30-36) % RDW 15.2 H (11.6-14.8) % Plt Count 415 H (150-400) X10^3/uL Neut % (Auto) 80.8 H (50-75) % Lymph % (Auto) 14.3 L (25-40) % [place] % (Auto) 4.1 (3-14) % Eos % (Auto) 0.3 L (2-4) % Baso % (Auto) 0.5 (0-2) % Neut # (Auto) 5900 (4783-3589) /uL Lymph # (Auto) 1000 L (6996-5414) /uL [place] # (Auto) 300 (0-900) /uL Eos # (Auto) 0 (0-450) /uL Baso # (Auto) 0 (0-100) /uL Sodium 137 (137-145) mmol/L Potassium 4.4 (3.4-5.1) mmol/L Chloride 105 (98-107) mmol/L Carbon Dioxide 30 (22-32) mmol/L BUN 19 H (7-17) mg/dL Creatinine 0.58 (0.52-1.04) mg/dL Estimated GFR > 60 (>60) mL/min BUN/Creatinine Ratio 32.8 H (6-22) Glucose 100 (70-100) mg/dL Calcium 8.3 L (8.4-10.2) mg/dL Total Bilirubin 0.4 (0.2-1.3) mg/dL AST 19 (14-36) IU/L ALT 11 (<35) IU/L Alkaline Phosphatase 58 (38-126) U/L Total Protein 6.7 (6.3-8.2) g/dL Albumin 3.7 (3.5-5.0) g/dL Globulin 3.0 (1.7-4.1) g/dL Albumin/Globulin Ratio 1.2 (1.0-2.8) U Opiates 300ng/mL cut Negative (Negative) Ur Oxycodone Screen Negative (Negative) Urine Methadone Screen Negative (Negative) Ur Barbiturates Screen Negative (Negative) U Tricyclic Antidepress Negative (Negative) Ur Phencyclidine Scrn Negative (Negative) Ur Amphetamines Screen Positive H (Negative) U Methamphetamines Scrn Positive H (Negative) Ur MDMA Scrn (Ecstasy) Positive H (Negative) U Benzodiazepines Scrn Positive H (Negative) Urine Cocaine Screen Negative (Negative) U Marijuana (THC) Screen Negative (Negative) Ethyl Alcohol < 10 ( - 10) mg/dL Urine Dip Bedside Urine Glucose Negative Bedside Urine Bilirubin - Negative Bedside Urine Ketone - Negative Urine Specific [place] 1.025 Bedside Urine Occult Blood - Negative Bedside Urine pH 6.0 Bedside Urine Protein - Negative Bedside Urine Urobilinogen - Negative Bedside Urine Nitrite - Negative Bedside Urine Leukocytes - Negative Esterase <Isaiah CappsDO - Last Filed: 12/01/21 06:00> Lab Data Labs: Lab Results 11/30/21 11/30/21 11/30/21 Range/Units 14:50 17:20 17:20 WBC 7.3 (4.5-11.0) X10^3/uL RBC 3.94 L (4.0-5.2) X10^6/uL Hgb 11.2 L (12.0-16.0) g/dL Hct 33.8 L (36-46) % MCV 85.8 (80-100) fL MCH 28.3 (26-34) PG MCHC 33.0 (30-36) % RDW 15.2 H (11.6-14.8) % Plt Count 415 H (150-400) X10^3/uL Neut % (Auto) 80.8 H (50-75) % Lymph % (Auto) 14.3 L (25-40) % [place] % (Auto) 4.1 (3-14) % Eos % (Auto) 0.3 L (2-4) % Baso % (Auto) 0.5 (0-2) % Neut # (Auto) 5900 (5558-9803) /uL Lymph # (Auto) 1000 L (0679-2943) /uL [place] # (Auto) 300 (0-900) /uL Eos # (Auto) 0 (0-450) /uL Baso # (Auto) 0 (0-100) /uL Sodium 137 (137-145) mmol/L Potassium 4.4 (3.4-5.1) mmol/L Chloride 105 (98-107) mmol/L Carbon Dioxide 30 (22-32) mmol/L BUN 19 H (7-17) mg/dL Creatinine 0.58 (0.52-1.04) mg/dL Estimated GFR > 60 (>60) mL/min BUN/Creatinine Ratio 32.8 H (6-22) Glucose 100 (70-100) mg/dL Calcium 8.3 L (8.4-10.2) mg/dL Total Bilirubin 0.4 (0.2-1.3) mg/dL AST 19 (14-36) IU/L ALT 11 (<35) IU/L Alkaline Phosphatase 58 (38-126) U/L Total Protein 6.7 (6.3-8.2) g/dL Albumin 3.7 (3.5-5.0) g/dL Globulin 3.0 (1.7-4.1) g/dL Albumin/Globulin Ratio 1.2 (1.0-2.8) U Opiates 300ng/mL cut Negative (Negative) Ur Oxycodone Screen Negative (Negative) Urine Methadone Screen Negative (Negative) Ur Barbiturates Screen Negative (Negative) U Tricyclic Antidepress Negative (Negative) Ur Phencyclidine Scrn Negative (Negative) Ur Amphetamines Screen Positive H (Negative) U Methamphetamines Scrn Positive H (Negative) Ur MDMA Scrn (Ecstasy) Positive H (Negative) U Benzodiazepines Scrn Positive H (Negative) Urine Cocaine Screen Negative (Negative) U Marijuana (THC) Screen Negative (Negative) Ethyl Alcohol < 10 ( - 10) mg/dL Urine Dip Bedside Urine Glucose Negative Bedside Urine Bilirubin - Negative Bedside Urine Ketone - Negative Urine Specific [place] 1.025 Bedside Urine Occult Blood - Negative Bedside Urine pH 6.0 Bedside Urine Protein - Negative Bedside Urine Urobilinogen - Negative Bedside Urine Nitrite - Negative Bedside Urine Leukocytes - Negative Esterase MDM Narrative Medical decision making narrative: Dr capps: Patient is well known to myself in this emergency department. Urinalysis does show polysubstance abuse. Patient was calm overnight. She did metabolize medications given upon arrival. She was able to ambulate. Patient is homeless. She is at her baseline mental status per my prior interactions with her. Multiple times patient has been detained for mental health issues. She subsequently only stays facility for couple days and then is discharged back to the street where she continues to use mind altering substances such as methamphetamine. Will discharge patient as she is back to her baseline. Discharge Plan Departure Patient Disposition: Home Clinical Impression: Polysubstance abuse, Schizophrenia Instructions: DI for Schizophrenia Prescriptions: No Action Unobtainable Referrals: Ele Rodgers MD [Primary Care Provider] - Visit Report Forms: Patient Portal/API
[2021-11-30 15:35] LABS: Ur Creatinine Normal (Normal); Ur Specific Gravity Normal (Normal); Urine pH Normal (Normal)
[2021-11-30 15:36] LABS: UR Morphine/Opiate cutoff 300 Negative (Negative); Urine Amphetamines Positive (Negative); Urine Barbiturates Negative (Negative); Urine Benzodiazepines Positive (Negative); Urine Cocaine Negative (Negative); Urine MDMA Positive (Negative); Urine Methadone Negative (Negative); Urine Methamphetamines Positive (Negative); Urine Oxycodone Negative (Negative); Urine Phencyclidine Negative (Negative); Urine Tetrahydrocannabinol Negative (Negative); Urine Tricyclic Antidepressant Negative (Negative)
[2021-11-30 17:29] LABS: Add Manual Diff / Slide Review NO; Basophils Absolute Auto 0 /uL (0-100); Basophils Percent Auto 0.5 % (0-2); Eosinophils Absolute Auto 0 /uL (0-450); Eosinophils Percent Auto 0.3 % (2-4); Hematocrit 33.8 % (36-46); Hemoglobin 11.2 g/dL (12.0-16.0); Lymphocytes Absolute Auto 1000 /uL (1100-4500); Lymphocytes Percent Auto 14.3 % (25-40); Mean Corpuscular Hemoglobin 28.3 PG (26-34); Mean Corpuscular Volume 85.8 fL (80-100); Monocytes Absolute Auto 300 /uL (0-900); Monocytes Percent Auto 4.1 % (3-14); Neutrophils Absolute Auto 5900 /uL (1500-7000); Neutrophils Percent Auto 80.8 % (50-75); Platelet Count 415 X10^3/uL (150-400); Red Blood Cell Count 3.94 X10^6/uL (4.0-5.2); Red Cell Distribution Width 15.2 % (11.6-14.8); White Blood Cell Count 7.3 X10^3/uL (4.5-11.0)
[2021-11-30 17:47] LABS: Alanine Aminotransferase 11 IU/L (<35); Albumin 3.7 g/dL (3.5-5.0); Albumin Globulin Ratio 1.2 (1.0-2.8); Alkaline Phosphatase 58 U/L (38-126); Aspartate Aminotransferase 19 IU/L (14-36); BUN Creatinine Ratio 32.8 (6-22); Bilirubin Total 0.4 mg/dL (0.2-1.3); Blood Urea Nitrogen 19 mg/dL (7-17); Calcium 8.3 mg/dL (8.4-10.2); Carbon Dioxide 30 mmol/L (22-32); Chloride 105 mmol/L (98-107); Estimated Glomerular Filt Rate > 60 mL/min (>60); Ethanol (ETOH) < 10 mg/dL; Glucose 100 mg/dL (70-100); HEMOLYSIS < 15 (0-50); Potassium 4.4 mmol/L (3.4-5.1); Sodium 137 mmol/L (137-145); Total Protein 6.7 g/dL (6.3-8.2)
--- NOTE | 2021-11-30 17:47 | CM.SWNOTE ---
CONTENT ARCHITECT Note CONTENT ARCHITECT receives consult for patient, patient is familiar face to ED with 23 ED encounters within the last year and 3 ED visits within the last week. Patient presents to ED via EMS due to concern for Methamphetamine induced psychosis and patient fearing for her safety. Patient was given medication and is currently sleeping and not medically clear at this time. It is the opinion of this CONTENT ARCHITECT that if patient is not safe for discharge upon medical clearance that patient may benefit from DCR dispatch for further evaluation to determine if CA placement is appropriate, as patient has not been able to follow through with her outpatient resources and medication management. CONTENT ARCHITECT informs this to ED provider. Plan: CONTENT ARCHITECT to f/u upon patient's medical clearance. JENNY Rogers
[2021-11-30 19:26] VITALS: PULSE 90; O2SAT 99
[2021-11-30 19:43] VITALS: BP 118/56; PULSE 91; RESP 18; O2SAT 99
[2021-11-30 19:51] VITALS: PULSE 107; O2SAT 98
[2021-11-30 19:52] VITALS: BP 130/75; PULSE 92; O2SAT 97
[2021-11-30 20:00] VITALS: PULSE 91; O2SAT 97
== END 2021-12-01 07:12 | disposition home or self-care (01) ==
PROVIDERS: Emergency Medicine; Emergency Provider Emergency Medicine; Family Provider Family Medicine; PCP Family Medicine
DX: F20.9 Schizophrenia, unspecified (principal); F19.10 Other psychoactive substance abuse, uncomplicated
CPT/HCPCS: 36415; 80053; 80305; 80320; 81003; 85025; 96372; 99283; J1630; J2250

== ENCOUNTER 2022-01-02 22:22 | Emergency (ER) | payer OTHER, MEDICAID, SELFPAY ==
[2022-01-02 22:30] VITALS: BP 169/85; PULSE 95; RESP 22; TEMP 37.2; O2SAT 100
--- NOTE | 2022-01-02 22:54 | ED.PSYCH ---
HPI - Psych General Chief Complaint: Psychiatric Symptoms Stated Complaint: feeling really yucky Time Seen by Provider: 01/02/22 22:54 Source: patient Mode of arrival: Ambulatory History of Present Illness HPI Narrative: Patient is a 41 year old female well known to this facility and myself history of schizophrenia and polysubstance abuse including methamphetamine abuse. Presenting today with paranoia which she has felt previously. She is just wanting somewhere safe to stay. No suicidal or homicidal ideations. She has previously been given multiple medications including risperidone 2 mg daily, she has also had Ativan Haldol and Zyprexa. She also is requesting a shot. Related Data Home Medications Medication Instructions Recorded Confirmed Unobtainable 09/29/20 09/29/20 Allergies Allergy/AdvReac Type Severity Reaction Status Date / Time No Known Drug Allergies Allergy Verified 11/30/21 14:47 Review of Systems Review of Systems Narrative: GENERAL: Denies chills,fever HEENT: Denies throat pain RESPIRATORY: Denies dyspnea, cough, wheezing CARDIOVASCULAR: Denies chest pain, palpitations GASTROINTESTINAL: Denies nausea, vomiting MUSCULOSKELETAL: Denies extremity pain, injury SKIN: No rash, no laceration, no pruritus NEUROLOGIC: Denies weakness, dizziness, headache, numbness 8 point review of systems is negative except for those stated above and HPI Patient History Medical History Drug abuse Schizophrenia Social History Smoking Status: Smoker, status unknown Smoking Status: Smoker, status unknown alcohol intake frequency: other Substance Use Type: methamphetamine and unknown Exam Initial Vital Signs Initial Vital Signs: Vital Signs Temperature 99.0 F 01/02/22 22:30 Pulse Rate 95 H 01/02/22 22:30 Respiratory Rate 22 01/02/22 22:30 Blood Pressure 169/85 H 01/02/22 22:30 Pulse Oximetry 100 01/02/22 22:30 Oxygen Delivery Method 01/02/22 22:30 GENERAL: Cooperative, disheveled 41-year-old female CARDIOVASCULAR: peripheral pulses in tact, cap refill <2 sec RESPIRATORY: No respiratory distress, speaks in full sentences without difficulty EXTREMITIES: Normal range of motion, no clubbing or edema. Neurovascularly intact NEUROLOGICAL: Cranial nerves II through XII grossly intact. Normal gait and speech. SKIN: Warm, dry, no petechiae, no rashes or lesions. Course Orders Ordered: Discontinued Medications Lorazepam (Lorazepam 2 Mg/Ml Inj) 1 mg IM NOW ONE Stop: 01/02/22 22:56 Last Admin: 01/02/22 23:11 Dose: 1 mg Documented By: ALEXEY Olanzapine (Olanzapine Odt 10 Mg Tab) 10 mg PO BEDTIME EUGENE Last Admin: 01/02/22 23:11 Dose: 10 mg Documented By: ALEXEY Risperidone (Risperidone 1 Mg Tablet) 2 mg PO NOW ONE Stop: 01/03/22 02:40 Last Admin: 01/03/22 02:52 Dose: 2 mg Documented By: ALEXEY Vital Signs Vital signs: Vital Signs - 8 hr 01/02/22 22:30 Temperature 99.0 F Pulse Rate 95 H Respiratory Rate 22 Blood Pressure 169/85 H Pulse Oximetry 100 Oxygen Delivery Method Room Air MDM - Psych MDM Narrative Medical decision making narrative: Patient not suicidal or homicidal is just wanting to stay here she was given Zyprexa and Ativan and was doing okay. She was given risperidone is and decided that she wanted to leave does not meet involuntary criteria. Discharge Plan Departure Patient Disposition: Home Clinical Impression: Chronic schizophrenia Instructions: DI for Schizoaffective Disorder Activity Restrictions/Additional Instructions: *You have been diagnosed with schizoaffective *What to do: *Continue to take medications as directed *Follow up with your primary care provider in 2-3 days or call [phone] *Return to ER if you should have worsening paranoia thoughts of harming self her other or any new, worsening or concerning symptoms Prescriptions: No Action Unobtainable Referrals: Ele Rodgers MD [Primary Care Provider] - Visit Report Forms: Patient Portal/API
[2022-01-02] MEDS: OLANZapine ODT 10 MG TAB PO (23:11)
[2022-01-02] MEDS: LORazepam 2 MG/ML INJ 1 MG IM (23:11)
[2022-01-03] MEDS: risperiDONE 1 MG TABLET 2 MG PO (02:52)
== END 2022-01-03 03:58 | disposition home or self-care (01) ==
PROVIDERS: Emergency Provider Emergency Medicine; Family Provider Family Medicine; PCP Family Medicine
DX: F20.9 Schizophrenia, unspecified (principal); F15.10 Other stimulant abuse, uncomplicated
CPT/HCPCS: 96372; 99284; J2060

== ENCOUNTER 2022-01-03 21:42 | Emergency (ER) | payer OTHER, MEDICAID, SELFPAY ==
[2022-01-03 22:05] VITALS: BP 180/80; PULSE 90; RESP 18; TEMP 36.6; O2SAT 100
[2022-01-04] MEDS: OLANZapine ODT 10 MG TAB PO (01:16)
--- NOTE | 2022-01-04 01:33 | ED_ITS ---
HPI - Recheck/Abnormal Lab/Rx General Chief Complaint: Recheck/Abnormal Lab/Rx Stated Complaint: psychosis, panic attack Time Seen by Provider: 01/03/22 21:49 Source: patient Mode of arrival: Ambulatory History of Present Illness HPI narrative: 41-year-old female known well to facility with frequent visits for schizophrenia, medical noncompliance, and methamphetamine use presents?with relatively mild symptoms per her usual stating that she is afraid someone is chasing her and has some visual hallucinations. She states that her meds will be at the pharmacy tomorrow and is hoping she can get a dose of something tonight. She denies suicidal or homicidal ideation. She denies any fever chills, recent trauma or injury nor chest pain, shortness of breath or cough. Related Data Home Medications Medication Instructions Recorded Confirmed Unobtainable 09/29/20 09/29/20 Allergies Allergy/AdvReac Type Severity Reaction Status Date / Time No Known Drug Allergies Allergy Verified 11/30/21 14:47 Review of Systems Review of Systems Narrative: GENERAL: Denies chills, fatigue, malaise, fever, sweats. HEENT: Denies sinus pain, ear pain, sore throat, difficulty swallowing, dizziness. RESPIRATORY: Denies dyspnea, cough, wheezing, hemoptysis, sputum. CARDIOVASCULAR: Denies chest pain, palpitations, orthopnea, edema, GASTROINTESTINAL: Denies nausea, vomiting, abdominal pain, diarrhea, constipation, melena. : Denies dysuria, frequency, incontinence, hematuria, urinary retention. MUSCULOSKELETAL: denies weakness, joint pain, or bony pain SKIN: Denies rash, skin lesions, or other NEUROLOGIC: Denies weakness, headache, numbness, change in speech, confusion, seizures, incoordination. PSYCHIATRIC: See HPI 12 point review of systems is negative except for those stated above Patient History Medical History Drug abuse Schizophrenia Social History Smoking Status: Smoker, status unknown Smoking Status: Smoker, status unknown alcohol intake frequency: other Substance Use Type: methamphetamine and unknown Exam Narrative Exam Narrative: GENERAL: [41] year old patient appears stated age. Well-developed patient, in mild distress. A bit anxious, some pacing but clear speech, walking a steady gait HEAD: Atraumatic. Normocephalic. EYES: Pupils equal round and reactive. Extraocular motions intact. No scleral icterus. No injection or drainage. ENT: Nose without bleeding, purulent drainage. Throat without erythema, t onsillar hypertrophy or exudate. Airway patent. NECK: Trachea midline. Non tender CARDIOVASCULAR: Regular rate and rhythm without murmurs, gallops, or rubs. RESPIRATORY: Clear to auscultation. Breath sounds equal bilaterally. No wheezes, rales, or rhonchi. GASTROINTESTINAL: Abdomen soft, non-tender, nondistended. EXTREMITIES: No edema or joint tenderness. BACK: Nontender without deformity or crepitance. No flank tenderness. NEURO: AOx3. SKIN: No rash or erythema of visible areas Initial Vital Signs Initial Vital Signs: Vital Signs Temperature 97.9 F 01/03/22 22:05 Pulse Rate 90 01/03/22 22:05 Respiratory Rate 18 01/03/22 22:05 Blood Pressure 180/80 H 01/03/22 22:05 Pulse Oximetry 100 01/03/22 22:05 Oxygen Delivery Method 01/03/22 22:05 Course Orders Ordered: Discontinued Medications Olanzapine (Olanzapine Odt 10 Mg Tab) 10 mg PO NOW ONE Stop: 01/04/22 01:00 Last Admin: 01/04/22 01:16 Dose: 10 mg Documented By: AP Vital Signs Vital signs: Vital Signs - 8 hr 01/03/22 22:05 Temperature 97.9 F Pulse Rate 90 Respiratory Rate 18 Blood Pressure 180/80 H Pulse Oximetry 100 Oxygen Delivery Method Room Air MDM - Recheck/Abnormal Lab/Rx MDM Narrative Medical decision making narrative: Patient alert and oriented x3, without suicidal or homicidal ideation, no evidence of grave disability, eating and drinking without difficulty and requesting a dose of medications to get her through the night. There is no indication for significant workup, return precautions given and questions answered to her apparent satisfaction Discharge Plan Departure Patient Disposition: Home Clinical Impression: Chronic schizophrenia Instructions: DI for Schizophrenia Activity Restrictions/Additional Instructions: There is no evidence of an emergent or life threatening illness at this time, but follow up with your doctor in 1-2 days is recommended nonetheless to continue to rule out serious underlying causes of your symptoms. Please call the office for an appointment. Please return to the Emergency Department for any worsening or persistent symptoms. Please take medications as directed. Prescriptions: No Action Unobtainable Referrals: Ele Rodgers MD [Primary Care Provider] -
== END 2022-01-04 01:38 | disposition home or self-care (01) ==
PROVIDERS: Emergency Provider Emergency Medicine; Family Provider Family Medicine; PCP Family Medicine
DX: F20.9 Schizophrenia, unspecified (principal)
CPT/HCPCS: 99283

== ENCOUNTER 2022-01-04 12:27 | Emergency (ER) | payer OTHER, MEDICAID, SELFPAY ==
[2022-01-04 12:30] VITALS: BP 208/97; PULSE 131; RESP 15; O2SAT 97; BMI 26.6
[2022-01-04] MEDS: OLANZapine ODT 10 MG TAB PO ×2 (12:41→13:39)
--- NOTE | 2022-01-04 12:59 | ED_ITS ---
HPI - Psych General Chief Complaint: Psychiatric Symptoms Stated Complaint: altered mental state Time Seen by Provider: 01/04/22 12:33 Source: patient Mode of arrival: Ambulatory History of Present Illness HPI Narrative: 41-year-old female who is brought to the emergency department for concerns of altered mental status. Patient is well known to this department and myself. She is a history of methamphetamine abuse, chronic schizophrenia, medication noncompliance. She is homeless. She comes emergency department stating that ?he is chasing me ?she states she feels unsafe. She is unable to provide any HPI or review of systems. Her presentation today is similar to prior presentations in the ER. Related Data Home Medications Medication Instructions Recorded Confirmed Unobtainable 09/29/20 09/29/20 Allergies Allergy/AdvReac Type Severity Reaction Status Date / Time No Known Drug Allergies Allergy Verified 01/04/22 12:36 Review of Systems Review of Systems ROS Unobtainable: Unobtainable due to mental status/LOC Patient History Medical History Drug abuse Schizophrenia Social History Smoking Status: Smoker, status unknown Smoking Status: Smoker, status unknown alcohol intake frequency: other Substance Use Type: methamphetamine and unknown Exam Initial Vital Signs Initial Vital Signs: Vital Signs Pulse Rate 131 H 01/04/22 12:30 Respiratory Rate 15 01/04/22 12:30 Blood Pressure 208/97 H 01/04/22 12:30 Pulse Oximetry 97 01/04/22 12:30 Oxygen Delivery Method 01/04/22 12:30 Const General: disheveled Resp Effort & Inspection: not labored Cardio Rate: tachycardic Neuro Other: Patient does move all 4 extremities. She is minimally compliant. Extrem Other: No gross deformities, no signs of trauma Psych Other: Patient is disheveled. This is her normal appearance when she comes to the emergency department. She follows commands occasionally. Course Orders Ordered: ED Orders 01/04/22 12:33 Consult to SURGICAL TERRITORY MANAGER - [employer] Equipment Operator Stat Discontinued Medications Diphenhydramine HCl (Diphenhydramine 50 Mg/Ml Vial) 25 mg IM NOW ONE Stop: 01/04/22 14:29 Last Admin: 01/04/22 14:33 Dose: 25 mg Documented By: RAI Haloperidol (Haloperidol 5 Mg/Ml Vial) 5 mg IM NOW ONE Stop: 01/04/22 14:29 Last Admin: 01/04/22 14:33 Dose: 5 mg Documented By: RAI Lorazepam (Lorazepam 0.5 Mg Tablet) 1 mg PO NOW ONE Stop: 01/04/22 13:34 Last Admin: 01/04/22 13:37 Dose: 1 mg Documented By: FRANCISCO Lorazepam (Lorazepam 0.5 Mg Tablet) 0.5 mg PO NOW ONE Stop: 01/04/22 13:47 Last Admin: 01/04/22 14:05 Dose: Not Given Documented By: RAI(2) Olanzapine (Olanzapine Odt 10 Mg Tab) 10 mg PO NOW ONE Stop: 01/04/22 12:35 Last Admin: 01/04/22 12:41 Dose: 10 mg Documented By: RAI Olanzapine (Olanzapine Odt 10 Mg Tab) 10 mg PO NOW ONE Stop: 01/04/22 13:36 Last Admin: 01/04/22 13:39 Dose: 10 mg Documented By: FRANCISCO Vital Signs Vital signs: Vital Signs - 8 hr 01/04/22 12:30 Pulse Rate 131 H Respiratory Rate 15 Blood Pressure 208/97 H Pulse Oximetry 97 Oxygen Delivery Method Room Air MDM - Psych MDM Narrative Medical decision making narrative: She had no signs of trauma. Was given multiple medications and it did seem to calm her down somewhat. Patient is that what I would feel to be her baseline mental status given the prior visits that I have had with her. Patient got up and walked out of the emergency department without being discharged. Discharge Plan Departure Patient Disposition: Left Against Medical Advice Clinical Impression: Chronic schizophrenia Prescriptions: No Action Unobtainable Referrals: Ele Rodgers MD [Primary Care Provider] - Stand Alone Forms: Against Medical Advice
[2022-01-04] MEDS: LORazepam 0.5 MG TABLET 1 MG PO (13:37)
[2022-01-04] MEDS: HALOPERIDOL 5 MG/ML VIAL IM (14:33)
[2022-01-04] MEDS: diphenhydrAMINE 50 MG/ML VIAL 25 MG IM (14:33)
--- NOTE | 2022-01-04 15:31 | CM.SWNOTE ---
Addendum entered by Roselyn Michel 01/04/22 17:52: EDUCATIONAL FUNDRAISING DIRECTOR Note After patient elopes ED she returns to ED aproxmately 30 minutes later. EDUCATIONAL FUNDRAISING DIRECTOR reviews patient with ED provider once more and dicusses DCR dispatch as this is patient's 4 ED visit in the last 3 days, patient also presented to [facility] on 01/01/22 regarding similar presentation. Plan: EDUCATIONAL FUNDRAISING DIRECTOR to dispatch DCR for evaluation. Roselyn Michel, [facility] Original Note: EDUCATIONAL FUNDRAISING DIRECTOR Assessment Note Patient is 41 y/o female who presents to ED due to concern for her safety, presenting with internal stimuli seeing people that she believes are going to harm her. Patient has hx of 29 ED encounters within the last year regarding similar concerns and 3 presentations at this ED in that last 3 days. Patient has hx of Methamphetamine use, noncompliance with prescribed medications and hx of homelessness in the community. Patient presents as anxious, labile, with pressured and perseverated speech. Patient spends several minutes in the ED hallway and it takes this EDUCATIONAL FUNDRAISING DIRECTOR and ED safe to reassure patient and voluntarily allowing her to enter her room. Patient denies HI and SI. Patient also denies ETOH or substance use. Patient states she has been staying at friend's house and was previously staying at tiny houses in [place] but was kicked out. Patient endorses she finds enough food to eat. Patient is A/O to self, location and person. Patient is repetative with statements someone is trying to hurt me physically, this is scary, they're going to try to hit me and several other mumbled statements. [facility] community loan auditor Jose Alfredo Esqueda is informed by [facility] outsole caser Nandini that patient is present at the ED. security endorses that patient was brought into ED by concerned community member. Patient is provided medication as prescribed by ED provider, patient presents with internal dialogue and questioning if she should stay or not. EDUCATIONAL FUNDRAISING DIRECTOR discusses with ED provider the plan of care and if he is in agreement with seeking DCR evaluation and CA placement for patient. Both EDUCATIONAL FUNDRAISING DIRECTOR and ED provider Dr. Capps agree that patient is gravely disabled but not a harm to herself or others. Per ED provider, patient is safe to d/c to community. After several hours of sitting with patient, patient chooses to leave ED. EDUCATIONAL FUNDRAISING DIRECTOR calls [facility] correctional case records supervisor Elsie . Plan: Patient left ED on her own accord, patient d/c'd to the community. Roselyn Michel, COLLATOR HAND
== END 2022-01-04 15:10 | disposition left against medical advice (07) ==
PROVIDERS: Emergency Provider Emergency Medicine; Family Provider Family Medicine; PCP Family Medicine
DX: F23 Brief psychotic disorder (principal); Z53.29 Procedure and treatment not carried out because of patient's decision for other reasons
CPT/HCPCS: 99284; J1200; J1630

== ENCOUNTER 2022-01-04 16:03 | Emergency (ER) | payer OTHER, MEDICAID, SELFPAY ==
--- NOTE | 2022-01-04 16:41 | ED_ITS ---
HPI - General Adult <Isaiah Capps DO - Last Filed: 01/04/22 18:18> General Chief complaint: Altered Mental Status Stated complaint: AMS Time Seen by Provider: 01/04/22 16:31 Source: patient Mode of arrival: Ambulatory History of Present Illness HPI narrative: 41-year-old female. Was in the emergency department less than 1 hour ago and received Zyprexa and Haldol and Benadryl and Ativan. She is known to this department and to myself. She is history of drug abuse and also schizophrenia in the setting of medication noncompliance. She was in the emergency department just recently stating that she felt like someone was after her. She did elope. She now returns and is much calmer. Related Data Home Medications Medication Instructions Recorded Confirmed Unobtainable 09/29/20 09/29/20 Allergies Allergy/AdvReac Type Severity Reaction Status Date / Time No Known Drug Allergies Allergy Verified 01/04/22 12:36 Review of Systems <DO Crissy Horton Last Filed: 01/04/22 18:18> Constitutional Constitutional: Reports system reviewed and no additional complaints, except as documented Psychiatric Psychiatric: Reports system reviewed and no additional complaints, except as documented Hematologic/Lymphatic On Anticoagulants: No Patient History <DO Crissy Horton Last Filed: 01/04/22 18:18> Medical History Drug abuse Schizophrenia Social History Smoking Status: Current every day smoker Smoking Status: Smoker, status unknown alcohol intake frequency: other Substance Use Type: methamphetamine and unknown Exam <DO Crissy Horton Last Filed: 01/04/22 18:18> Initial Vital Signs Initial Vital Signs: Vital Signs Pulse Rate 93 H 01/04/22 16:44 Respiratory Rate 18 01/04/22 16:44 Blood Pressure 163/99 H 01/04/22 16:44 Pulse Oximetry 98 01/04/22 16:44 Oxygen Delivery Method 01/04/22 16:44 Const General: disheveled Resp Effort & Inspection: normal respiratory effort Cardio Rate: regular rate Neuro General: patient awake Extrem Other: No gross deformities Psych Other: Disheveled <Cassidy Coleman DO - Last Filed: 01/05/22 08:40> Initial Vital Signs Initial Vital Signs: Vital Signs Pulse Rate 93 H 01/04/22 16:44 Respiratory Rate 18 01/04/22 16:44 Blood Pressure 163/99 H 01/04/22 16:44 Pulse Oximetry 98 01/04/22 16:44 Oxygen Delivery Method 01/04/22 16:44 Course <Isaiah Capps, DO - Last Filed: 01/04/22 18:18> Orders Ordered: ED Orders 01/04/22 14:46 Urinalysis and Microscopic Stat Urine Drug Screen, Rapid Stat 01/04/22 16:28 Consult to [facility] Drafter Geophysical Stat 01/04/22 16:35 Acetaminophen Stat Basic Metabolic Panel Stat Complete Blood Count AUTO DIFF Stat Ethanol (ETOH) Stat Test Serum,Qual Stat Thyroid Stimulating Hormone Stat 01/04/22 16:45 COVID19 -Nasal RAPID/Pre-Proc Stat 01/04/22 16:53 EKG-12 Lead Stat Vital Signs Vital signs: Vital Signs - 8 hr 01/05/22 02:00 01/05/22 06:31 Pulse Rate 80 90 Respiratory Rate 18 17 Blood Pressure 169/89 H 162/106 H Pulse Oximetry 98 99 Oxygen Delivery Method Room Air Room Air <Cassidy Coleman, DO - Last Filed: 01/05/22 08:40> Orders Ordered: ED Orders 01/04/22 14:46 Urinalysis and Microscopic Stat Urine Drug Screen, Rapid Stat 01/04/22 16:28 Consult to [facility] Drafter Geophysical Stat 01/04/22 16:35 Acetaminophen Stat Basic Metabolic Panel Stat Complete Blood Count AUTO DIFF Stat Ethanol (ETOH) Stat Test Serum,Qual Stat Thyroid Stimulating Hormone Stat 01/04/22 16:45 COVID19 -Nasal RAPID/Pre-Proc Stat 01/04/22 16:53 EKG-12 Lead Stat Vital Signs Vital signs: Vital Signs - 8 hr 01/05/22 02:00 01/05/22 06:31 Pulse Rate 80 90 Respiratory Rate 18 17 Blood Pressure 169/89 H 162/106 H Pulse Oximetry 98 99 Oxygen Delivery Method Room Air Room Air Medical Decision Making <Isaiah Capps, DO - Last Filed: 01/04/22 18:18> Lab Data Result diagrams: 01/04/22 16:35 01/04/22 16:35 Labs: Lab Results 01/04/22 01/04/22 01/04/22 Range/Units 14:46 14:46 16:35 WBC 8.9 (4.5-11.0) X10^3/uL RBC 3.74 L (4.0-5.2) X10^6/uL Hgb 10.5 L (12.0-16.0) g/dL Hct 30.9 L (36-46) % MCV 82.8 (80-100) fL MCH 28.1 (26-34) PG MCHC 34.0 (30-36) % RDW 14.2 (11.6-14.8) % Plt Count 445 H (150-400) X10^3/uL Neut % (Auto) 81.7 H (50-75) % Lymph % (Auto) 11.4 L (25-40) % Pershing % (Auto) 6.0 (3-14) % Eos % (Auto) 0.2 L (2-4) % Baso % (Auto) 0.7 (0-2) % Neut # (Auto) 7300 H (8937-9694) /uL Lymph # (Auto) 1000 L (2505-4134) /uL Pershing # (Auto) 500 (0-900) /uL Eos # (Auto) 0 (0-450) /uL Baso # (Auto) 100 (0-100) /uL Sodium (137-145) mmol/L Potassium (3.4-5.1) mmol/L Chloride (98-107) mmol/L Carbon Dioxide (22-32) mmol/L BUN (7-17) mg/dL Creatinine (0.52-1.04) mg/dL Estimated GFR (>60) mL/min BUN/Creatinine Ratio (6-22) Glucose (70-100) mg/dL Calcium (8.4-10.2) mg/dL TSH (0.47-4.68) uIU/mL Serum , Qual (Negative) Urine Color Yellow Urine Appearance Clear Urine pH 7.0 (4.5-8.0) Ur Specific [place] 1.015 (1.000-1.035) Urine Protein Trace H (Negative) Urine Glucose (UA) Negative (Negative) g/dL Urine Ketones Negative (NEGATIVE) Urine Occult Blood Negative (Negative) Urine Nitrate Negative (Negative) Urine Bilirubin Negative (NEGATIVE) Urine Urobilinogen 0.2 (0.2) E.U./dL Ur Leukocyte Esterase Negative (NEGATIVE) Urine RBC None seen (0-5/HPF) Urine WBC None seen (0-5/HPF) Ur Squamous Epith Cells None seen (0-5/HPF) Urine Bacteria None seen (None) Ur Culture Indicated? Cult not indicated U Opiates 300ng/mL cut Negative (Negative) Ur Oxycodone Screen Negative (Negative) Urine Methadone Screen Negative (Negative) Acetaminophen (10-30) ug/mL Ur Barbiturates Screen Negative (Negative) U Tricyclic Antidepress Negative (Negative) Ur Phencyclidine Scrn Negative (Negative) Ur Amphetamines Screen Positive H (Negative) U Methamphetamines Scrn Positive H (Negative) Ur MDMA Scrn (Ecstasy) Negative (Negative) U Benzodiazepines Scrn Negative (Negative) Urine Cocaine Screen Negative (Negative) U Marijuana (THC) Screen Negative (Negative) Ethyl Alcohol ( - 10) mg/dL SARS-CoV-2 (PCR) (Negative) 01/04/22 01/04/22 01/04/22 Range/Units 16:35 16:35 16:35 WBC (4.5-11.0) X10^3/uL RBC (4.0-5.2) X10^6/uL Hgb (12.0-16.0) g/dL Hct (36-46) % MCV (80-100) fL MCH (26-34) PG MCHC (30-36) % RDW (11.6-14.8) % Plt Count (150-400) X10^3/uL Neut % (Auto) (50-75) % Lymph % (Auto) (25-40) % Pershing % (Auto) (3-14) % Eos % (Auto) (2-4) % Baso % (Auto) (0-2) % Neut # (Auto) (5534-5430) /uL Lymph # (Auto) (6465-8906) /uL Pershing # (Auto) (0-900) /uL Eos # (Auto) (0-450) /uL Baso # (Auto) (0-100) /uL Sodium 136 L (137-145) mmol/L Potassium 3.6 (3.4-5.1) mmol/L Chloride 99 (98-107) mmol/L Carbon Dioxide 30 (22-32) mmol/L BUN 16 (7-17) mg/dL Creatinine 0.83 (0.52-1.04) mg/dL Estimated GFR > 60 (>60) mL/min BUN/Creatinine Ratio 19.3 (6-22) Glucose 115 H (70-100) mg/dL Calcium 8.4 (8.4-10.2) mg/dL TSH 1.81 (0.47-4.68) uIU/mL Serum , Qual Negative (Negative) Urine Color Urine Appearance Urine pH (4.5-8.0) Ur Specific [place] (1.000-1.035) Urine Protein (Negative) Urine Glucose (UA) (Negative) g/dL Urine Ketones (NEGATIVE) Urine Occult Blood (Negative) Urine Nitrate (Negative) Urine Bilirubin (NEGATIVE) Urine Urobilinogen (0.2) E.U./dL Ur Leukocyte Esterase (NEGATIVE) Urine RBC (0-5/HPF) Urine WBC (0-5/HPF) Ur Squamous Epith Cells (0-5/HPF) Urine Bacteria (None) Ur Culture Indicated? U Opiates 300ng/mL cut (Negative) Ur Oxycodone Screen (Negative) Urine Methadone Screen (Negative) Acetaminophen < 10 (10-30) ug/mL Ur Barbiturates Screen (Negative) U Tricyclic Antidepress (Negative) Ur Phencyclidine Scrn (Negative) Ur Amphetamines Screen (Negative) U Methamphetamines Scrn (Negative) Ur MDMA Scrn (Ecstasy) (Negative) U Benzodiazepines Scrn (Negative) Urine Cocaine Screen (Negative) U Marijuana (THC) Screen (Negative) Ethyl Alcohol < 10 ( - 10) mg/dL SARS-CoV-2 (PCR) (Negative) 01/04/22 Range/Units 16:45 WBC (4.5-11.0) X10^3/uL RBC (4.0-5.2) X10^6/uL Hgb (12.0-16.0) g/dL Hct (36-46) % MCV (80-100) fL MCH (26-34) PG MCHC (30-36) % RDW (11.6-14.8) % Plt Count (150-400) X10^3/uL Neut % (Auto) (50-75) % Lymph % (Auto) (25-40) % Pershing % (Auto) (3-14) % Eos % (Auto) (2-4) % Baso % (Auto) (0-2) % Neut # (Auto) (3815-1906) /uL Lymph # (Auto) (4989-7354) /uL Pershing # (Auto) (0-900) /uL Eos # (Auto) (0-450) /uL Baso # (Auto) (0-100) /uL Sodium (137-145) mmol/L Potassium (3.4-5.1) mmol/L Chloride (98-107) mmol/L Carbon Dioxide (22-32) mmol/L BUN (7-17) mg/dL Creatinine (0.52-1.04) mg/dL Estimated GFR (>60) mL/min BUN/Creatinine Ratio (6-22) Glucose (70-100) mg/dL Calcium (8.4-10.2) mg/dL TSH (0.47-4.68) uIU/mL Serum , Qual (Negative) Urine Color Urine Appearance Urine pH (4.5-8.0) Ur Specific [place] (1.000-1.035) Urine Protein (Negative) Urine Glucose (UA) (Negative) g/dL Urine Ketones (NEGATIVE) Urine Occult Blood (Negative) Urine Nitrate (Negative) Urine Bilirubin (NEGATIVE) Urine Urobilinogen (0.2) E.U./dL Ur Leukocyte Esterase (NEGATIVE) Urine RBC (0-5/HPF) Urine WBC (0-5/HPF) Ur Squamous Epith Cells (0-5/HPF) Urine Bacteria (None) Ur Culture Indicated? U Opiates 300ng/mL cut (Negative) Ur Oxycodone Screen (Negative) Urine Methadone Screen (Negative) Acetaminophen (10-30) ug/mL Ur Barbiturates Screen (Negative) U Tricyclic Antidepress (Negative) Ur Phencyclidine Scrn (Negative) Ur Amphetamines Screen (Negative) U Methamphetamines Scrn (Negative) Ur MDMA Scrn (Ecstasy) (Negative) U Benzodiazepines Scrn (Negative) Urine Cocaine Screen (Negative) U Marijuana (THC) Screen (Negative) Ethyl Alcohol ( - 10) mg/dL SARS-CoV-2 (PCR) Negative (Negative) ECG Data Attestation: I personally reviewed and interpreted this ECG as follows: Interpretation: Sinus rhythm Ventricular rate 98 Normal axis Normal QRS Normal QTC No ST T wave changes MDM Narrative Medical decision making narrative: Patient is medically cleared. Social work has evaluated the patient. Plan will be is to contact DCR for evaluation given her clinical presentation. Care turned over to Dr. Dupree to follow-up and disposition. <Cassidy Coleman, DO - Last Filed: 01/05/22 08:40> Lab Data Labs: Lab Results 01/04/22 01/04/22 01/04/22 Range/Units 14:46 14:46 16:35 WBC 8.9 (4.5-11.0) X10^3/uL RBC 3.74 L (4.0-5.2) X10^6/uL Hgb 10.5 L (12.0-16.0) g/dL Hct 30.9 L (36-46) % MCV 82.8 (80-100) fL MCH 28.1 (26-34) PG MCHC 34.0 (30-36) % RDW 14.2 (11.6-14.8) % Plt Count 445 H (150-400) X10^3/uL Neut % (Auto) 81.7 H (50-75) % Lymph % (Auto) 11.4 L (25-40) % Pershing % (Auto) 6.0 (3-14) % Eos % (Auto) 0.2 L (2-4) % Baso % (Auto) 0.7 (0-2) % Neut # (Auto) 7300 H (7316-4246) /uL Lymph # (Auto) 1000 L (3981-3715) /uL Pershing # (Auto) 500 (0-900) /uL Eos # (Auto) 0 (0-450) /uL Baso # (Auto) 100 (0-100) /uL Sodium (137-145) mmol/L Potassium (3.4-5.1) mmol/L Chloride (98-107) mmol/L Carbon Dioxide (22-32) mmol/L BUN (7-17) mg/dL Creatinine (0.52-1.04) mg/dL Estimated GFR (>60) mL/min BUN/Creatinine Ratio (6-22) Glucose (70-100) mg/dL Calcium (8.4-10.2) mg/dL TSH (0.47-4.68) uIU/mL Serum , Qual (Negative) Urine Color Yellow Urine Appearance Clear Urine pH 7.0 (4.5-8.0) Ur Specific [place] 1.015 (1.000-1.035) Urine Protein Trace H (Negative) Urine Glucose (UA) Negative (Negative) g/dL Urine Ketones Negative (NEGATIVE) Urine Occult Blood Negative (Negative) Urine Nitrate Negative (Negative) Urine Bilirubin Negative (NEGATIVE) Urine Urobilinogen 0.2 (0.2) E.U./dL Ur Leukocyte Esterase Negative (NEGATIVE) Urine RBC None seen (0-5/HPF) Urine WBC None seen (0-5/HPF) Ur Squamous Epith Cells None seen (0-5/HPF) Urine Bacteria None seen (None) Ur Culture Indicated? Cult not indicated U Opiates 300ng/mL cut Negative (Negative) Ur Oxycodone Screen Negative (Negative) Urine Methadone Screen Negative (Negative) Acetaminophen (10-30) ug/mL Ur Barbiturates Screen Negative (Negative) U Tricyclic Antidepress Negative (Negative) Ur Phencyclidine Scrn Negative (Negative) Ur Amphetamines Screen Positive H (Negative) U Methamphetamines Scrn Positive H (Negative) Ur MDMA Scrn (Ecstasy) Negative (Negative) U Benzodiazepines Scrn Negative (Negative) Urine Cocaine Screen Negative (Negative) U Marijuana (THC) Screen Negative (Negative) Ethyl Alcohol ( - 10) mg/dL SARS-CoV-2 (PCR) (Negative) 01/04/22 01/04/22 01/04/22 Range/Units 16:35 16:35 16:35 WBC (4.5-11.0) X10^3/uL RBC (4.0-5.2) X10^6/uL Hgb (12.0-16.0) g/dL Hct (36-46) % MCV (80-100) fL MCH (26-34) PG MCHC (30-36) % RDW (11.6-14.8) % Plt Count (150-400) X10^3/uL Neut % (Auto) (50-75) % Lymph % (Auto) (25-40) % Pershing % (Auto) (3-14) % Eos % (Auto) (2-4) % Baso % (Auto) (0-2) % Neut # (Auto) (3006-0718) /uL Lymph # (Auto) (5501-7385) /uL Pershing # (Auto) (0-900) /uL Eos # (Auto) (0-450) /uL Baso # (Auto) (0-100) /uL Sodium 136 L (137-145) mmol/L Potassium 3.6 (3.4-5.1) mmol/L Chloride 99 (98-107) mmol/L Carbon Dioxide 30 (22-32) mmol/L BUN 16 (7-17) mg/dL Creatinine 0.83 (0.52-1.04) mg/dL Estimated GFR > 60 (>60) mL/min BUN/Creatinine Ratio 19.3 (6-22) Glucose 115 H (70-100) mg/dL Calcium 8.4 (8.4-10.2) mg/dL TSH 1.81 (0.47-4.68) uIU/mL Serum , Qual Negative (Negative) Urine Color Urine Appearance Urine pH (4.5-8.0) Ur Specific [place] (1.000-1.035) Urine Protein (Negative) Urine Glucose (UA) (Negative) g/dL Urine Ketones (NEGATIVE) Urine Occult Blood (Negative) Urine Nitrate (Negative) Urine Bilirubin (NEGATIVE) Urine Urobilinogen (0.2) E.U./dL Ur Leukocyte Esterase (NEGATIVE) Urine RBC (0-5/HPF) Urine WBC (0-5/HPF) Ur Squamous Epith Cells (0-5/HPF) Urine Bacteria (None) Ur Culture Indicated? U Opiates 300ng/mL cut (Negative) Ur Oxycodone Screen (Negative) Urine Methadone Screen (Negative) Acetaminophen < 10 (10-30) ug/mL Ur Barbiturates Screen (Negative) U Tricyclic Antidepress (Negative) Ur Phencyclidine Scrn (Negative) Ur Amphetamines Screen (Negative) U Methamphetamines Scrn (Negative) Ur MDMA Scrn (Ecstasy) (Negative) U Benzodiazepines Scrn (Negative) Urine Cocaine Screen (Negative) U Marijuana (THC) Screen (Negative) Ethyl Alcohol < 10 ( - 10) mg/dL SARS-CoV-2 (PCR) (Negative) 01/04/22 Range/Units 16:45 WBC (4.5-11.0) X10^3/uL RBC (4.0-5.2) X10^6/uL Hgb (12.0-16.0) g/dL Hct (36-46) % MCV (80-100) fL MCH (26-34) PG MCHC (30-36) % RDW (11.6-14.8) % Plt Count (150-400) X10^3/uL Neut % (Auto) (50-75) % Lymph % (Auto) (25-40) % Pershing % (Auto) (3-14) % Eos % (Auto) (2-4) % Baso % (Auto) (0-2) % Neut # (Auto) (7503-9329) /uL Lymph # (Auto) (6201-8821) /uL Pershing # (Auto) (0-900) /uL Eos # (Auto) (0-450) /uL Baso # (Auto) (0-100) /uL Sodium (137-145) mmol/L Potassium (3.4-5.1) mmol/L Chloride (98-107) mmol/L Carbon Dioxide (22-32) mmol/L BUN (7-17) mg/dL Creatinine (0.52-1.04) mg/dL Estimated GFR (>60) mL/min BUN/Creatinine Ratio (6-22) Glucose (70-100) mg/dL Calcium (8.4-10.2) mg/dL TSH (0.47-4.68) uIU/mL Serum , Qual (Negative) Urine Color Urine Appearance Urine pH (4.5-8.0) Ur Specific [place] (1.000-1.035) Urine Protein (Negative) Urine Glucose (UA) (Negative) g/dL Urine Ketones (NEGATIVE) Urine Occult Blood (Negative) Urine Nitrate (Negative) Urine Bilirubin (NEGATIVE) Urine Urobilinogen (0.2) E.U./dL Ur Leukocyte Esterase (NEGATIVE) Urine RBC (0-5/HPF) Urine WBC (0-5/HPF) Ur Squamous Epith Cells (0-5/HPF) Urine Bacteria (None) Ur Culture Indicated? U Opiates 300ng/mL cut (Negative) Ur Oxycodone Screen (Negative) Urine Methadone Screen (Negative) Acetaminophen (10-30) ug/mL Ur Barbiturates Screen (Negative) U Tricyclic Antidepress (Negative) Ur Phencyclidine Scrn (Negative) Ur Amphetamines Screen (Negative) U Methamphetamines Scrn (Negative) Ur MDMA Scrn (Ecstasy) (Negative) U Benzodiazepines Scrn (Negative) Urine Cocaine Screen (Negative) U Marijuana (THC) Screen (Negative) Ethyl Alcohol ( - 10) mg/dL SARS-CoV-2 (PCR) Negative (Negative) MDM Narrative Medical decision making narrative: Patient is medically cleared. Social work has evaluated the patient. Plan will be is to contact KIMI for evaluation given her clinical presentation. Care turned over to Dr. Dupree to follow-up and disposition. Spoke with KIMI [place], at this time she has interviewed with patient patient has had Zyprexa and is more calm and appropriate. At this time they are not going to detain the patient. Patient would like to leave and has plan to go to the [facility] to try to get a voucher for hotel room. Patient does have a Lesser restrictive order for nonprescribed substance use but at this time PCR is not going to enforce. Patient seen and independently evaluated by myself. She is much more calm her thought pattern is much more appropriate at this time. Patient would like to be discharged at this time. Discharge Plan Departure Patient Disposition: Home Clinical Impression: Chronic schizophrenia Activity Restrictions/Additional Instructions: Follow up with Jose Alfredo the community environmental health technologist and your PACT team. Please continue taking your medications which are dispensed by your pact team. You can return at any time. Please return if you feel unsafe or feel that your unsafe around others. If you're feeling suicidal or having suicidal thoughts, contact the suicide hotline: . Prescriptions: No Action Unobtainable Referrals: Ele Rodgers MD [Primary Care Provider] - Visit Report Forms: Patient Portal/API
[2022-01-04 16:44] VITALS: BP 163/99; PULSE 93; RESP 18; O2SAT 98
[2022-01-04 17:07] LABS: Add Manual Diff / Slide Review NO; Basophils Absolute Auto 100 /uL (0-100); Basophils Percent Auto 0.7 % (0-2); Eosinophils Absolute Auto 0 /uL (0-450); Eosinophils Percent Auto 0.2 % (2-4); Hematocrit 30.9 % (36-46); Hemoglobin 10.5 g/dL (12.0-16.0); Lymphocytes Absolute Auto 1000 /uL (1100-4500); Lymphocytes Percent Auto 11.4 % (25-40); Mean Corpuscular Hemoglobin 28.1 PG (26-34); Mean Corpuscular Volume 82.8 fL (80-100); Monocytes Absolute Auto 500 /uL (0-900); Neutrophils Absolute Auto 7300 /uL (1500-7000); Neutrophils Percent Auto 81.7 % (50-75); Platelet Count 445 X10^3/uL (150-400); Red Blood Cell Count 3.74 X10^6/uL (4.0-5.2); Red Cell Distribution Width 14.2 % (11.6-14.8); White Blood Cell Count 8.9 X10^3/uL (4.5-11.0)
[2022-01-04 17:11] LABS: Appearance Urine UA CLEAR; Bilirubin Urine UA NEGATIVE (NEGATIVE); Color Urine UA YELLOW; Glucose Urine UA NEGATIVE (Negative); Ketones Urine UA NEGATIVE (NEGATIVE); Leukocyte Esterase Urine UA NEGATIVE (NEGATIVE); Nitrite Urine UA NEGATIVE (Negative); Occult Blood Urine UA NEGATIVE (Negative); Protein Urine UA TRACE (Negative); Specific Gravity Urine UA 1.015 (1.000-1.035); Urobilinogen Urine UA 0.2 E.U./dL (0.2)
[2022-01-04 17:18] LABS: Ur Creatinine Normal (Normal); Ur Specific Gravity Normal (Normal); Urine Cocaine Negative (Negative); Urine Tetrahydrocannabinol Negative (Negative); Urine pH Normal (Normal)
[2022-01-04 17:18] LABS: Pregnancy Test Serum,Qual Negative (Negative)
[2022-01-04 17:19] LABS: UR Morphine/Opiate cutoff 300 Negative (Negative); Urine Amphetamines Positive (Negative); Urine Barbiturates Negative (Negative); Urine Benzodiazepines Negative (Negative); Urine MDMA Negative (Negative); Urine Methadone Negative (Negative); Urine Methamphetamines Positive (Negative); Urine Oxycodone Negative (Negative); Urine Phencyclidine Negative (Negative); Urine Tricyclic Antidepressant Negative (Negative)
[2022-01-04 17:20] LABS: Acetaminophen < 10 ug/mL (10-30); BUN Creatinine Ratio 19.3 (6-22); Blood Urea Nitrogen 16 mg/dL (7-17); Calcium 8.4 mg/dL (8.4-10.2); Carbon Dioxide 30 mmol/L (22-32); Chloride 99 mmol/L (98-107); Estimated Glomerular Filt Rate > 60 mL/min (>60); Ethanol (ETOH) < 10 mg/dL; Glucose 115 mg/dL (70-100); HEMOLYSIS < 15 (0-50); Potassium 3.6 mmol/L (3.4-5.1); Sodium 136 mmol/L (137-145)
[2022-01-04 17:25] LABS: Bacteria Urine None Seen; Culture Indicated Urine Cult Not Indicated; RBC Urine None Seen (0-5/HPF); Squamous Epithelial Cell Urine None Seen (0-5/HPF); WBC Urine None Seen (0-5/HPF)
[2022-01-04 17:27] LABS: COVID19 -Nasal RAPID Negative (Negative)
[2022-01-04 17:51] LABS: Thyroid Stimulating Hormone 1.81 uIU/mL (0.47-4.68)
--- NOTE | 2022-01-04 19:49 | CM.SWNOTE ---
NUMERICAL CONTROL ROUTER OPERATOR Note NUMERICAL CONTROL ROUTER OPERATOR dispatches DCR, Claudia is assigned (Ph. # [phone]). NUMERICAL CONTROL ROUTER OPERATOR endorses that patient is currently in a deep sleep due to the medications given to patient earlier today. Claudia DCR endorses that she consulted with DCR Radha and it was reported that patient was detained a few weeks ago as well. It was reported that patient has an (LRO) Less Restrictive Order. This means that DCR can detain patient for not adhering to LRO conditions as well as due to concern for patient's substance use and grave disability. Claudia endorses that this DCR dispatch will be referred to as consultation as patient will need to be awake and alert when evaluated by DCR. Claudia DCR endorses that ED team should re dispatch DCR when patient wakes up and is able to conduct DCR evaluation. Claudia reports that patient is likely to receive longer term inpatient treatment due to her re-occurring ED visits and Methamphetamine use. NUMERICAL CONTROL ROUTER OPERATOR reviews this with ED CAPTAIN FISHING VESSEL, [employer] and ED provider Dr. Dupree who both indicate understanding. Plan: Patient to board in ED, ED team to dispatch DRC when patient wakes up, DCR evaluate patient and seek CA placement. Roselyn Michel, QUALITY ASSURANCE
[2022-01-04 21:08] VITALS: BP 174/91; PULSE 86; RESP 20; O2SAT 99
--- NOTE | 2022-01-04 21:09 | PC.NURSE ---
patient resting on left side with eyes closed. patient allowed me to get vital signs. provider aware.
--- NOTE | 2022-01-04 23:00 | PC.NURSE ---
[facility] called and dispatched again. DCR to call back.
--- NOTE | 2022-01-04 23:42 | PC.NURSE ---
Claudia called back and RN spoke with Claudia. Patient fell back asleep and Claudia reports that when the patient wakes up to call back and let [facility] know to have them have DCR to call us. Claudia states that the patient is detained until she speaks with DCR. Dr. Dupree aware.
--- NOTE | 2022-01-04 23:43 | PC.NURSE ---
At approx. 2250 she ambulated to the bathroom,she told me that she was willing to talk to the DCR.
[2022-01-05 02:00] VITALS: BP 169/89; PULSE 80; RESP 18; O2SAT 98
[2022-01-05 06:31] VITALS: BP 162/106; PULSE 90; RESP 17; O2SAT 99
--- NOTE | 2022-01-05 06:32 | PC.NURSE ---
0612 Pt Awake, DCR notified that Pt wants to leave and please call the ED back to arrange speaking with PT
--- NOTE | 2022-01-05 08:03 | PC.NURSE ---
Emili Leiva with DCR calls to inform that I am not detaining Claire Antolin asks if we pass message along to here that she is not being detained by dcr and is free to leave once we are set to discharge her.
== END 2022-01-05 08:11 | disposition home or self-care (01) ==
PROVIDERS: Emergency Medicine; Emergency Provider Emergency Medicine; Family Provider Family Medicine; PCP Family Medicine
DX: F20.9 Schizophrenia, unspecified (principal); Z20.822 Contact with and (suspected) exposure to COVID-19; F15.10 Other stimulant abuse, uncomplicated; R07.9 Chest pain, unspecified; F23 Brief psychotic disorder; Z53.29 Procedure and treatment not carried out because of patient's decision for other reasons
CPT/HCPCS: 36415; 80048; 80305; 80320; 80329; 81001; 84443; 84703; 85025; 87635; 93005; 93010; 96372; 99283; 99284; C9803; G0480; J1200; J1630

== ENCOUNTER 2022-01-05 21:51 | Emergency (ER) | payer OTHER, MEDICAID, SELFPAY ==
[2022-01-05 21:56] VITALS: BP 199/107; PULSE 108; RESP 18; TEMP 36.6; O2SAT 98; BMI 26.6
--- NOTE | 2022-01-05 22:13 | ED_ITS ---
HPI - Psych <Manju Merchant MD - Last Filed: 01/06/22 03:51> General Chief Complaint: Psychiatric Symptoms Stated Complaint: Mental health Time Seen by Provider: 01/05/22 22:13 Source: patient and EMS Mode of arrival: EMS History of Present Illness HPI Narrative: 41-year-old woman with schizophrenia and occasional methamphetamine use has been having escalating behavioral difficulties with multiple community members calling police over the course of yesterday in today complaining that she is yelling, she is walking into businesses, she is walking out into traffic. Police did a welfare check on her and she was complaining that she was unsafe, she is frightened, significantly increased paranoid ideation and pressured speech. She is brought into the emergency department. She is willing to give urine and I actually requests a shot of medication to help. She is increasingly paranoid, tangential with pressured speech and seems to be a danger to herself and gravely disabled at this time. She is not sure of medications that she is currently taken. Recent records from inpatient hospitalization had suggested that she got Invega as a shot monthly which she does not recall. She has been given risperidone all and believes that her PAC team gives her 5 mg of olanzapine. She states that that team has not touched base with her over the last day or 2 and she has not been taking her olanzapine. Related Data Home Medications Medication Instructions Recorded Confirmed Unobtainable 09/29/20 09/29/20 Allergies Allergy/AdvReac Type Severity Reaction Status Date / Time No Known Drug Allergies Allergy Verified 01/04/22 12:36 Review of Systems <Manju Merchant MD - Last Filed: 01/06/22 03:51> Review of Systems Narrative: Remainder of complete review of systems is otherwise unremarkable except for that included in the HPI. Patient History <Manju Merchant MD - Last Filed: 01/06/22 03:51> Medical History Drug abuse Schizophrenia Social History Smoking Status: Current every day smoker Smoking Status: Current every day smoker tobacco type: cigarettes alcohol intake frequency: other Substance Use Type: methamphetamine and unknown Exam <Manju Merchant MD - Last Filed: 01/06/22 03:51> Initial Vital Signs Initial Vital Signs: Vital Signs Temperature 97.8 F 01/05/22 21:56 Pulse Rate 108 H 01/05/22 21:56 Respiratory Rate 18 01/05/22 21:56 Blood Pressure 199/107 H 01/05/22 21:56 Pulse Oximetry 98 01/05/22 21:56 Oxygen Delivery Method 01/05/22 21:56 General: Disheveled, physically covered in dirt and foundation makeup that is spread over her face into her hair and over most of her clothing as well HEENT: Moist mucous membranes, normal sclera with reactive pupils, Respiratory: Lungs are clear to auscultation, no wheezing no rales no rhonchi. Full and symmetrical air movement Cardiac: Regular rate and rhythm no murmurs no bruits Abdomen: Soft, nontender, good bowel tones, no flank pain Skin: Warm and dry, no rashes Neurologic: Grossly neurologically intact with no obvious asymmetries or abnormalities Extremities: No trauma, well perfused Psych: Paranoid, pressured speech, tangential, does not appear to be responding to internal stimuli at this time, difficult to redirect and refocus <Cassidy Coleman DO - Last Filed: 01/06/22 19:13> Initial Vital Signs Initial Vital Signs: Vital Signs Temperature 97.8 F 01/05/22 21:56 Pulse Rate 108 H 01/05/22 21:56 Respiratory Rate 18 01/05/22 21:56 Blood Pressure 199/107 H 01/05/22 21:56 Pulse Oximetry 98 01/05/22 21:56 Oxygen Delivery Method 01/05/22 21:56 <Harvey Dupree DO - Last Filed: 01/06/22 23:09> Initial Vital Signs Initial Vital Signs: Vital Signs Temperature 97.8 F 01/05/22 21:56 Pulse Rate 108 H 01/05/22 21:56 Respiratory Rate 18 01/05/22 21:56 Blood Pressure 199/107 H 01/05/22 21:56 Pulse Oximetry 98 01/05/22 21:56 Oxygen Delivery Method 01/05/22 21:56 Course <Manju Merchant MD - Last Filed: 01/06/22 03:51> Orders Ordered: ED Orders 01/06/22 14:30 EKG-12 Lead Stat Discontinued Medications Diphenhydramine HCl (Diphenhydramine 50 Mg/Ml Vial) 50 mg IM NOW ONE Stop: 01/05/22 22:24 Last Admin: 01/05/22 22:46 Dose: 50 mg Documented By: NR Haloperidol (Haloperidol 5 Mg/Ml Vial) 10 mg IM NOW ONE Stop: 01/05/22 22:31 Last Admin: 01/05/22 22:45 Dose: 10 mg Documented By: NR Lorazepam (Lorazepam 2 Mg/Ml Inj) 2 mg IM NOW ONE Stop: 01/05/22 22:24 Last Admin: 01/05/22 22:46 Dose: 2 mg Documented By: NR Olanzapine (Olanzapine 10 Mg Vial) 20 mg IM NOW ONE Stop: 01/05/22 22:24 Last Admin: 01/05/22 23:17 Dose: Not Given Documented By: NR Vital Signs Vital signs: Vital Signs - 8 hr 01/06/22 18:15 Pulse Rate 81 Respiratory Rate 16 Blood Pressure 165/91 H Pulse Oximetry 98 Oxygen Delivery Method Room Air <Cassidy Coleman DO - Last Filed: 01/06/22 19:13> Orders Ordered: ED Orders 01/06/22 14:30 EKG-12 Lead Stat Discontinued Medications Diphenhydramine HCl (Diphenhydramine 50 Mg/Ml Vial) 50 mg IM NOW ONE Stop: 01/05/22 22:24 Last Admin: 01/05/22 22:46 Dose: 50 mg Documented By: NR Haloperidol (Haloperidol 5 Mg/Ml Vial) 10 mg IM NOW ONE Stop: 01/05/22 22:31 Last Admin: 01/05/22 22:45 Dose: 10 mg Documented By: NR Lorazepam (Lorazepam 2 Mg/Ml Inj) 2 mg IM NOW ONE Stop: 01/05/22 22:24 Last Admin: 01/05/22 22:46 Dose: 2 mg Documented By: NR Olanzapine (Olanzapine 10 Mg Vial) 20 mg IM NOW ONE Stop: 01/05/22 22:24 Last Admin: 01/05/22 23:17 Dose: Not Given Documented By: NR Vital Signs Vital signs: Vital Signs - 8 hr 01/06/22 18:15 Pulse Rate 81 Respiratory Rate 16 Blood Pressure 165/91 H Pulse Oximetry 98 Oxygen Delivery Method Room Air <Harvey Dupree DO - Last Filed: 01/06/22 23:09> Orders Ordered: ED Orders 01/06/22 14:30 EKG-12 Lead Stat Discontinued Medications Diphenhydramine HCl (Diphenhydramine 50 Mg/Ml Vial) 50 mg IM NOW ONE Stop: 01/05/22 22:24 Last Admin: 01/05/22 22:46 Dose: 50 mg Documented By: NR Haloperidol (Haloperidol 5 Mg/Ml Vial) 10 mg IM NOW ONE Stop: 01/05/22 22:31 Last Admin: 01/05/22 22:45 Dose: 10 mg Documented By: NR Lorazepam (Lorazepam 2 Mg/Ml Inj) 2 mg IM NOW ONE Stop: 01/05/22 22:24 Last Admin: 01/05/22 22:46 Dose: 2 mg Documented By: NR Olanzapine (Olanzapine 10 Mg Vial) 20 mg IM NOW ONE Stop: 01/05/22 22:24 Last Admin: 01/05/22 23:17 Dose: Not Given Documented By: NR Vital Signs Vital signs: Vital Signs - 8 hr 01/06/22 18:15 Pulse Rate 81 Respiratory Rate 16 Blood Pressure 165/91 H Pulse Oximetry 98 Oxygen Delivery Method Room Air MDM - Psych <Manju Merchant MD - Last Filed: 01/06/22 03:51> Medical Records Medical records narrative: 41-year-old woman with increasing reports of escalating behavior from community members. Urine is positive for methamphetamine. It is unclear if she has been taking her medications. She is certainly more paranoid, more agitated and significantly pressured speech as I have seen with previous presentations. She was seen twice on January 04 with blood work done at that time that was unremarkable. This included test. Urine today is contaminated and does not appear to show an infection. Urine drug screen shows methamphetamine and no other abnormalities. On arrival in the emergency department she is given IM Haldol, Benadryl and Ativan and has been sleeping soundly. Will need to be re-evaluated when she wakes up to see how much of her behavior was methamphetamine related and how much is her schizophrenia worsening. There is no alcohol concern at this time and typically she has not had alcohol issues. She did not consent to blood draw so alcohol level as not immediately available. Lab Data Result diagrams: 01/06/22 07:40 01/06/22 07:40 Labs: Lab Results 01/05/22 01/05/22 01/06/22 Range/Units 22:00 22:00 07:40 WBC 7.4 (4.5-11.0) X10^3/uL RBC 4.04 (4.0-5.2) X10^6/uL Hgb 11.2 L (12.0-16.0) g/dL Hct 33.3 L (36-46) % MCV 82.3 (80-100) fL MCH 27.7 (26-34) PG MCHC 33.6 (30-36) % RDW 14.6 (11.6-14.8) % Plt Count 495 H (150-400) X10^3/uL Neut % (Auto) 69.4 (50-75) % Lymph % (Auto) 19.8 L (25-40) % Isabella % (Auto) 7.5 (3-14) % Eos % (Auto) 2.7 (2-4) % Baso % (Auto) 0.6 (0-2) % Neut # (Auto) 5100 (0209-7528) /uL Lymph # (Auto) 1500 (1251-8937) /uL Isabella # (Auto) 600 (0-900) /uL Eos # (Auto) 200 (0-450) /uL Baso # (Auto) 0 (0-100) /uL Sodium (137-145) mmol/L Potassium (3.4-5.1) mmol/L Chloride (98-107) mmol/L Carbon Dioxide (22-32) mmol/L BUN (7-17) mg/dL Creatinine (0.52-1.04) mg/dL Estimated GFR (>60) mL/min BUN/Creatinine Ratio (6-22) Glucose (70-100) mg/dL Calcium (8.4-10.2) mg/dL Total Bilirubin (0.2-1.3) mg/dL AST (14-36) IU/L ALT (<35) IU/L Alkaline Phosphatase (38-126) U/L Total Protein (6.3-8.2) g/dL Albumin (3.5-5.0) g/dL Globulin (1.7-4.1) g/dL Albumin/Globulin Ratio (1.0-2.8) TSH (0.47-4.68) uIU/mL Free T4 (0.78-2.19) ng/dL Serum , Qual (Negative) Urine RBC None seen (0-5/HPF) Urine WBC None seen (0-5/HPF) Ur Squamous Epith Cells 5-10 /hpf H (0-5/HPF) Amorphous Sediment 2+ Urine Bacteria Few (2-10) H (None) Ur Culture Indicated? Cult not indicated Salicylates (<20) mg/dL U Opiates 300ng/mL cut Negative (Negative) Ur Oxycodone Screen Negative (Negative) Urine Methadone Screen Negative (Negative) Acetaminophen (10-30) ug/mL Ur Barbiturates Screen Negative (Negative) U Tricyclic Antidepress Negative (Negative) Ur Phencyclidine Scrn Negative (Negative) Ur Amphetamines Screen Positive H (Negative) U Methamphetamines Scrn Positive H (Negative) Ur MDMA Scrn (Ecstasy) Negative (Negative) U Benzodiazepines Scrn Negative (Negative) Urine Cocaine Screen Negative (Negative) U Marijuana (THC) Screen Negative (Negative) Ethyl Alcohol ( - 10) mg/dL SARS-CoV-2 (PCR) (Negative) 01/06/22 01/06/22 01/06/22 Range/Units 07:40 07:40 07:40 WBC (4.5-11.0) X10^3/uL RBC (4.0-5.2) X10^6/uL Hgb (12.0-16.0) g/dL Hct (36-46) % MCV (80-100) fL MCH (26-34) PG MCHC (30-36) % RDW (11.6-14.8) % Plt Count (150-400) X10^3/uL Neut % (Auto) (50-75) % Lymph % (Auto) (25-40) % Isabella % (Auto) (3-14) % Eos % (Auto) (2-4) % Baso % (Auto) (0-2) % Neut # (Auto) (0139-8017) /uL Lymph # (Auto) (0367-9300) /uL Isabella # (Auto) (0-900) /uL Eos # (Auto) (0-450) /uL Baso # (Auto) (0-100) /uL Sodium 136 L (137-145) mmol/L Potassium 3.4 (3.4-5.1) mmol/L Chloride 97 L (98-107) mmol/L Carbon Dioxide 29 (22-32) mmol/L BUN 13 (7-17) mg/dL Creatinine 0.78 (0.52-1.04) mg/dL Estimated GFR > 60 (>60) mL/min BUN/Creatinine Ratio 16.7 (6-22) Glucose 96 (70-100) mg/dL Calcium 8.2 L (8.4-10.2) mg/dL Total Bilirubin 0.5 (0.2-1.3) mg/dL AST 20 (14-36) IU/L ALT 10 (<35) IU/L Alkaline Phosphatase 74 (38-126) U/L Total Protein 7.4 (6.3-8.2) g/dL Albumin 3.9 (3.5-5.0) g/dL Globulin 3.5 (1.7-4.1) g/dL Albumin/Globulin Ratio 1.1 (1.0-2.8) TSH 3.63 D (0.47-4.68) uIU/mL Free T4 1.23 (0.78-2.19) ng/dL Serum , Qual Negative (Negative) Urine RBC (0-5/HPF) Urine WBC (0-5/HPF) Ur Squamous Epith Cells (0-5/HPF) Amorphous Sediment Urine Bacteria (None) Ur Culture Indicated? Salicylates < 1.0 (<20) mg/dL U Opiates 300ng/mL cut (Negative) Ur Oxycodone Screen (Negative) Urine Methadone Screen (Negative) Acetaminophen < 10 (10-30) ug/mL Ur Barbiturates Screen (Negative) U Tricyclic Antidepress (Negative) Ur Phencyclidine Scrn (Negative) Ur Amphetamines Screen (Negative) U Methamphetamines Scrn (Negative) Ur MDMA Scrn (Ecstasy) (Negative) U Benzodiazepines Scrn (Negative) Urine Cocaine Screen (Negative) U Marijuana (THC) Screen (Negative) Ethyl Alcohol < 10 ( - 10) mg/dL SARS-CoV-2 (PCR) (Negative) 01/06/22 Range/Units 09:38 WBC (4.5-11.0) X10^3/uL RBC (4.0-5.2) X10^6/uL Hgb (12.0-16.0) g/dL Hct (36-46) % MCV (80-100) fL MCH (26-34) PG MCHC (30-36) % RDW (11.6-14.8) % Plt Count (150-400) X10^3/uL Neut % (Auto) (50-75) % Lymph % (Auto) (25-40) % Isabella % (Auto) (3-14) % Eos % (Auto) (2-4) % Baso % (Auto) (0-2) % Neut # (Auto) (7212-8327) /uL Lymph # (Auto) (2463-8407) /uL Isabella # (Auto) (0-900) /uL Eos # (Auto) (0-450) /uL Baso # (Auto) (0-100) /uL Sodium (137-145) mmol/L Potassium (3.4-5.1) mmol/L Chloride (98-107) mmol/L Carbon Dioxide (22-32) mmol/L BUN (7-17) mg/dL Creatinine (0.52-1.04) mg/dL Estimated GFR (>60) mL/min BUN/Creatinine Ratio (6-22) Glucose (70-100) mg/dL Calcium (8.4-10.2) mg/dL Total Bilirubin (0.2-1.3) mg/dL AST (14-36) IU/L ALT (<35) IU/L Alkaline Phosphatase (38-126) U/L Total Protein (6.3-8.2) g/dL Albumin (3.5-5.0) g/dL Globulin (1.7-4.1) g/dL Albumin/Globulin Ratio (1.0-2.8) TSH (0.47-4.68) uIU/mL Free T4 (0.78-2.19) ng/dL Serum , Qual (Negative) Urine RBC (0-5/HPF) Urine WBC (0-5/HPF) Ur Squamous Epith Cells (0-5/HPF) Amorphous Sediment Urine Bacteria (None) Ur Culture Indicated? Salicylates (<20) mg/dL U Opiates 300ng/mL cut (Negative) Ur Oxycodone Screen (Negative) Urine Methadone Screen (Negative) Acetaminophen (10-30) ug/mL Ur Barbiturates Screen (Negative) U Tricyclic Antidepress (Negative) Ur Phencyclidine Scrn (Negative) Ur Amphetamines Screen (Negative) U Methamphetamines Scrn (Negative) Ur MDMA Scrn (Ecstasy) (Negative) U Benzodiazepines Scrn (Negative) Urine Cocaine Screen (Negative) U Marijuana (THC) Screen (Negative) Ethyl Alcohol ( - 10) mg/dL SARS-CoV-2 (PCR) Negative (Negative) Point of Care Testing Test Results Negative Urine Dip Bedside Urine Glucose Negative Bedside Urine Bilirubin - Negative Bedside Urine Ketone - Negative Urine Specific [place] 1.015 Bedside Urine Occult Blood - Negative Bedside Urine pH 7 Bedside Urine Protein + 30 Bedside Urine Urobilinogen - Negative Bedside Urine Nitrite - Negative Bedside Urine Leukocytes - Negative Esterase <Cassidy Coleman, DO - Last Filed: 01/06/22 19:13> Medical Records Medical records narrative: 41-year-old woman with increasing reports of escalating behavior from community members. Urine is positive for methamphetamine. It is unclear if she has been taking her medications. She is certainly more paranoid, more agitated and significantly pressured speech as I have seen with previous presentations. She was seen twice on January 04 with blood work done at that time that was unremarkable. This included test. Urine today is contaminated and does not appear to show an infection. Urine drug screen shows methamphetamine and no other abnormalities. On arrival in the emergency department she is given IM Haldol, Benadryl and Ativan and has been sleeping soundly. Will need to be re-evaluated when she wakes up to see how much of her behavior was methamphetamine related and how much is her schizophrenia worsening. There is no alcohol concern at this time and typically she has not had alcohol issues. She did not consent to blood draw so alcohol level as not immediately available. S 01/06/22 Mank: Patient was signed out to myself by Dr. Merchant. Patient Spoke with KIMI Cha who detained patient. She did see patient here in the department provided appropriate paperwork. And bed has been found and working on transportation. Lab Data Labs: Lab Results 01/05/22 01/05/22 01/06/22 Range/Units 22:00 22:00 07:40 WBC 7.4 (4.5-11.0) X10^3/uL RBC 4.04 (4.0-5.2) X10^6/uL Hgb 11.2 L (12.0-16.0) g/dL Hct 33.3 L (36-46) % MCV 82.3 (80-100) fL MCH 27.7 (26-34) PG MCHC 33.6 (30-36) % RDW 14.6 (11.6-14.8) % Plt Count 495 H (150-400) X10^3/uL Neut % (Auto) 69.4 (50-75) % Lymph % (Auto) 19.8 L (25-40) % Isabella % (Auto) 7.5 (3-14) % Eos % (Auto) 2.7 (2-4) % Baso % (Auto) 0.6 (0-2) % Neut # (Auto) 5100 (7199-9285) /uL Lymph # (Auto) 1500 (8758-0148) /uL Isabella # (Auto) 600 (0-900) /uL Eos # (Auto) 200 (0-450) /uL Baso # (Auto) 0 (0-100) /uL Sodium (137-145) mmol/L Potassium (3.4-5.1) mmol/L Chloride (98-107) mmol/L Carbon Dioxide (22-32) mmol/L BUN (7-17) mg/dL Creatinine (0.52-1.04) mg/dL Estimated GFR (>60) mL/min BUN/Creatinine Ratio (6-22) Glucose (70-100) mg/dL Calcium (8.4-10.2) mg/dL Total Bilirubin (0.2-1.3) mg/dL AST (14-36) IU/L ALT (<35) IU/L Alkaline Phosphatase (38-126) U/L Total Protein (6.3-8.2) g/dL Albumin (3.5-5.0) g/dL Globulin (1.7-4.1) g/dL Albumin/Globulin Ratio (1.0-2.8) TSH (0.47-4.68) uIU/mL Free T4 (0.78-2.19) ng/dL Serum , Qual (Negative) Urine RBC None seen (0-5/HPF) Urine WBC None seen (0-5/HPF) Ur Squamous Epith Cells 5-10 /hpf H (0-5/HPF) Amorphous Sediment 2+ Urine Bacteria Few (2-10) H (None) Ur Culture Indicated? Cult not indicated Salicylates (<20) mg/dL U Opiates 300ng/mL cut Negative (Negative) Ur Oxycodone Screen Negative (Negative) Urine Methadone Screen Negative (Negative) Acetaminophen (10-30) ug/mL Ur Barbiturates Screen Negative (Negative) U Tricyclic Antidepress Negative (Negative) Ur Phencyclidine Scrn Negative (Negative) Ur Amphetamines Screen Positive H (Negative) U Methamphetamines Scrn Positive H (Negative) Ur MDMA Scrn (Ecstasy) Negative (Negative) U Benzodiazepines Scrn Negative (Negative) Urine Cocaine Screen Negative (Negative) U Marijuana (THC) Screen Negative (Negative) Ethyl Alcohol ( - 10) mg/dL SARS-CoV-2 (PCR) (Negative) 01/06/22 01/06/22 01/06/22 Range/Units 07:40 07:40 07:40 WBC (4.5-11.0) X10^3/uL RBC (4.0-5.2) X10^6/uL Hgb (12.0-16.0) g/dL Hct (36-46) % MCV (80-100) fL MCH (26-34) PG MCHC (30-36) % RDW (11.6-14.8) % Plt Count (150-400) X10^3/uL Neut % (Auto) (50-75) % Lymph % (Auto) (25-40) % Isabella % (Auto) (3-14) % Eos % (Auto) (2-4) % Baso % (Auto) (0-2) % Neut # (Auto) (5316-3930) /uL Lymph # (Auto) (4310-3760) /uL Isabella # (Auto) (0-900) /uL Eos # (Auto) (0-450) /uL Baso # (Auto) (0-100) /uL Sodium 136 L (137-145) mmol/L Potassium 3.4 (3.4-5.1) mmol/L Chloride 97 L (98-107) mmol/L Carbon Dioxide 29 (22-32) mmol/L BUN 13 (7-17) mg/dL Creatinine 0.78 (0.52-1.04) mg/dL Estimated GFR > 60 (>60) mL/min BUN/Creatinine Ratio 16.7 (6-22) Glucose 96 (70-100) mg/dL Calcium 8.2 L (8.4-10.2) mg/dL Total Bilirubin 0.5 (0.2-1.3) mg/dL AST 20 (14-36) IU/L ALT 10 (<35) IU/L Alkaline Phosphatase 74 (38-126) U/L Total Protein 7.4 (6.3-8.2) g/dL Albumin 3.9 (3.5-5.0) g/dL Globulin 3.5 (1.7-4.1) g/dL Albumin/Globulin Ratio 1.1 (1.0-2.8) TSH 3.63 D (0.47-4.68) uIU/mL Free T4 1.23 (0.78-2.19) ng/dL Serum , Qual Negative (Negative) Urine RBC (0-5/HPF) Urine WBC (0-5/HPF) Ur Squamous Epith Cells (0-5/HPF) Amorphous Sediment Urine Bacteria (None) Ur Culture Indicated? Salicylates < 1.0 (<20) mg/dL U Opiates 300ng/mL cut (Negative) Ur Oxycodone Screen (Negative) Urine Methadone Screen (Negative) Acetaminophen < 10 (10-30) ug/mL Ur Barbiturates Screen (Negative) U Tricyclic Antidepress (Negative) Ur Phencyclidine Scrn (Negative) Ur Amphetamines Screen (Negative) U Methamphetamines Scrn (Negative) Ur MDMA Scrn (Ecstasy) (Negative) U Benzodiazepines Scrn (Negative) Urine Cocaine Screen (Negative) U Marijuana (THC) Screen (Negative) Ethyl Alcohol < 10 ( - 10) mg/dL SARS-CoV-2 (PCR) (Negative) 01/06/22 Range/Units 09:38 WBC (4.5-11.0) X10^3/uL RBC (4.0-5.2) X10^6/uL Hgb (12.0-16.0) g/dL Hct (36-46) % MCV (80-100) fL MCH (26-34) PG MCHC (30-36) % RDW (11.6-14.8) % Plt Count (150-400) X10^3/uL Neut % (Auto) (50-75) % Lymph % (Auto) (25-40) % Isabella % (Auto) (3-14) % Eos % (Auto) (2-4) % Baso % (Auto) (0-2) % Neut # (Auto) (2464-0929) /uL Lymph # (Auto) (0682-8073) /uL Isabella # (Auto) (0-900) /uL Eos # (Auto) (0-450) /uL Baso # (Auto) (0-100) /uL Sodium (137-145) mmol/L Potassium (3.4-5.1) mmol/L Chloride (98-107) mmol/L Carbon Dioxide (22-32) mmol/L BUN (7-17) mg/dL Creatinine (0.52-1.04) mg/dL Estimated GFR (>60) mL/min BUN/Creatinine Ratio (6-22) Glucose (70-100) mg/dL Calcium (8.4-10.2) mg/dL Total Bilirubin (0.2-1.3) mg/dL AST (14-36) IU/L ALT (<35) IU/L Alkaline Phosphatase (38-126) U/L Total Protein (6.3-8.2) g/dL Albumin (3.5-5.0) g/dL Globulin (1.7-4.1) g/dL Albumin/Globulin Ratio (1.0-2.8) TSH (0.47-4.68) uIU/mL Free T4 (0.78-2.19) ng/dL Serum , Qual (Negative) Urine RBC (0-5/HPF) Urine WBC (0-5/HPF) Ur Squamous Epith Cells (0-5/HPF) Amorphous Sediment Urine Bacteria (None) Ur Culture Indicated? Salicylates (<20) mg/dL U Opiates 300ng/mL cut (Negative) Ur Oxycodone Screen (Negative) Urine Methadone Screen (Negative) Acetaminophen (10-30) ug/mL Ur Barbiturates Screen (Negative) U Tricyclic Antidepress (Negative) Ur Phencyclidine Scrn (Negative) Ur Amphetamines Screen (Negative) U Methamphetamines Scrn (Negative) Ur MDMA Scrn (Ecstasy) (Negative) U Benzodiazepines Scrn (Negative) Urine Cocaine Screen (Negative) U Marijuana (THC) Screen (Negative) Ethyl Alcohol ( - 10) mg/dL SARS-CoV-2 (PCR) Negative (Negative) Point of Care Testing Test Results Negative Urine Dip Bedside Urine Glucose Negative Bedside Urine Bilirubin - Negative Bedside Urine Ketone - Negative Urine Specific [place] 1.015 Bedside Urine Occult Blood - Negative Bedside Urine pH 7 Bedside Urine Protein + 30 Bedside Urine Urobilinogen - Negative Bedside Urine Nitrite - Negative Bedside Urine Leukocytes - Negative Esterase MDM Narrative Medical decision making narrative: [place] 01/06/22: Patient who is well known to myself in the emergency department presents to Dr. Laughlin overnight for the 4th time in 4 days patient was screaming, paranoid hitting individuals she has been walking into traffic daily despite being directed not to by traffic as well as police it has been walking into shops in the community. I spoke with DCR yesterday morning who did not attain the patient. Patient had received Zyprexa at that time and had calmed. She had Haldol overnight into today and so her mentation is somewhat improved but unlikely to stay improved. She is part of a pact team and they are supposed to help find her and give her medication but she states she does not think that she has received it for at least several days outside of what she is been given on her ER visits. Patient is not suicidal or homicidal but does appear to be gravely disabled. She has a known less restrictive order in terms of ongoing nonprescribed substance use. Patient signed out to myself she is currently medi skinny cleared. DCR has been contacted and KIMI Cha does elect to detain patient. Placement was found. Patient has been cooperative during the day. Working on setting up transportation. Patient signed out while arranging this with Dr. Dupree. <Harvey Dupree, DO - Last Filed: 01/06/22 23:09> Lab Data Labs: Lab Results 01/05/22 01/05/22 01/06/22 Range/Units 22:00 22:00 07:40 WBC 7.4 (4.5-11.0) X10^3/uL RBC 4.04 (4.0-5.2) X10^6/uL Hgb 11.2 L (12.0-16.0) g/dL Hct 33.3 L (36-46) % MCV 82.3 (80-100) fL MCH 27.7 (26-34) PG MCHC 33.6 (30-36) % RDW 14.6 (11.6-14.8) % Plt Count 495 H (150-400) X10^3/uL Neut % (Auto) 69.4 (50-75) % Lymph % (Auto) 19.8 L (25-40) % Isabella % (Auto) 7.5 (3-14) % Eos % (Auto) 2.7 (2-4) % Baso % (Auto) 0.6 (0-2) % Neut # (Auto) 5100 (8186-2884) /uL Lymph # (Auto) 1500 (5914-6369) /uL Isabella # (Auto) 600 (0-900) /uL Eos # (Auto) 200 (0-450) /uL Baso # (Auto) 0 (0-100) /uL Sodium (137-145) mmol/L Potassium (3.4-5.1) mmol/L Chloride (98-107) mmol/L Carbon Dioxide (22-32) mmol/L BUN (7-17) mg/dL Creatinine (0.52-1.04) mg/dL Estimated GFR (>60) mL/min BUN/Creatinine Ratio (6-22) Glucose (70-100) mg/dL Calcium (8.4-10.2) mg/dL Total Bilirubin (0.2-1.3) mg/dL AST (14-36) IU/L ALT (<35) IU/L Alkaline Phosphatase (38-126) U/L Total Protein (6.3-8.2) g/dL Albumin (3.5-5.0) g/dL Globulin (1.7-4.1) g/dL Albumin/Globulin Ratio (1.0-2.8) TSH (0.47-4.68) uIU/mL Free T4 (0.78-2.19) ng/dL Serum , Qual (Negative) Urine RBC None seen (0-5/HPF) Urine WBC None seen (0-5/HPF) Ur Squamous Epith Cells 5-10 /hpf H (0-5/HPF) Amorphous Sediment 2+ Urine Bacteria Few (2-10) H (None) Ur Culture Indicated? Cult not indicated Salicylates (<20) mg/dL U Opiates 300ng/mL cut Negative (Negative) Ur Oxycodone Screen Negative (Negative) Urine Methadone Screen Negative (Negative) Acetaminophen (10-30) ug/mL Ur Barbiturates Screen Negative (Negative) U Tricyclic Antidepress Negative (Negative) Ur Phencyclidine Scrn Negative (Negative) Ur Amphetamines Screen Positive H (Negative) U Methamphetamines Scrn Positive H (Negative) Ur MDMA Scrn (Ecstasy) Negative (Negative) U Benzodiazepines Scrn Negative (Negative) Urine Cocaine Screen Negative (Negative) U Marijuana (THC) Screen Negative (Negative) Ethyl Alcohol ( - 10) mg/dL SARS-CoV-2 (PCR) (Negative) 01/06/22 01/06/22 01/06/22 Range/Units 07:40 07:40 07:40 WBC (4.5-11.0) X10^3/uL RBC (4.0-5.2) X10^6/uL Hgb (12.0-16.0) g/dL Hct (36-46) % MCV (80-100) fL MCH (26-34) PG MCHC (30-36) % RDW (11.6-14.8) % Plt Count (150-400) X10^3/uL Neut % (Auto) (50-75) % Lymph % (Auto) (25-40) % Isabella % (Auto) (3-14) % Eos % (Auto) (2-4) % Baso % (Auto) (0-2) % Neut # (Auto) (2373-5476) /uL Lymph # (Auto) (0639-2340) /uL Isabella # (Auto) (0-900) /uL Eos # (Auto) (0-450) /uL Baso # (Auto) (0-100) /uL Sodium 136 L (137-145) mmol/L Potassium 3.4 (3.4-5.1) mmol/L Chloride 97 L (98-107) mmol/L Carbon Dioxide 29 (22-32) mmol/L BUN 13 (7-17) mg/dL Creatinine 0.78 (0.52-1.04) mg/dL Estimated GFR > 60 (>60) mL/min BUN/Creatinine Ratio 16.7 (6-22) Glucose 96 (70-100) mg/dL Calcium 8.2 L (8.4-10.2) mg/dL Total Bilirubin 0.5 (0.2-1.3) mg/dL AST 20 (14-36) IU/L ALT 10 (<35) IU/L Alkaline Phosphatase 74 (38-126) U/L Total Protein 7.4 (6.3-8.2) g/dL Albumin 3.9 (3.5-5.0) g/dL Globulin 3.5 (1.7-4.1) g/dL Albumin/Globulin Ratio 1.1 (1.0-2.8) TSH 3.63 D (0.47-4.68) uIU/mL Free T4 1.23 (0.78-2.19) ng/dL Serum , Qual Negative (Negative) Urine RBC (0-5/HPF) Urine WBC (0-5/HPF) Ur Squamous Epith Cells (0-5/HPF) Amorphous Sediment Urine Bacteria (None) Ur Culture Indicated? Salicylates < 1.0 (<20) mg/dL U Opiates 300ng/mL cut (Negative) Ur Oxycodone Screen (Negative) Urine Methadone Screen (Negative) Acetaminophen < 10 (10-30) ug/mL Ur Barbiturates Screen (Negative) U Tricyclic Antidepress (Negative) Ur Phencyclidine Scrn (Negative) Ur Amphetamines Screen (Negative) U Methamphetamines Scrn (Negative) Ur MDMA Scrn (Ecstasy) (Negative) U Benzodiazepines Scrn (Negative) Urine Cocaine Screen (Negative) U Marijuana (THC) Screen (Negative) Ethyl Alcohol < 10 ( - 10) mg/dL SARS-CoV-2 (PCR) (Negative) 01/06/22 Range/Units 09:38 WBC (4.5-11.0) X10^3/uL RBC (4.0-5.2) X10^6/uL Hgb (12.0-16.0) g/dL Hct (36-46) % MCV (80-100) fL MCH (26-34) PG MCHC (30-36) % RDW (11.6-14.8) % Plt Count (150-400) X10^3/uL Neut % (Auto) (50-75) % Lymph % (Auto) (25-40) % Isabella % (Auto) (3-14) % Eos % (Auto) (2-4) % Baso % (Auto) (0-2) % Neut # (Auto) (1042-5348) /uL Lymph # (Auto) (1042-8631) /uL Isabella # (Auto) (0-900) /uL Eos # (Auto) (0-450) /uL Baso # (Auto) (0-100) /uL Sodium (137-145) mmol/L Potassium (3.4-5.1) mmol/L Chloride (98-107) mmol/L Carbon Dioxide (22-32) mmol/L BUN (7-17) mg/dL Creatinine (0.52-1.04) mg/dL Estimated GFR (>60) mL/min BUN/Creatinine Ratio (6-22) Glucose (70-100) mg/dL Calcium (8.4-10.2) mg/dL Total Bilirubin (0.2-1.3) mg/dL AST (14-36) IU/L ALT (<35) IU/L Alkaline Phosphatase (38-126) U/L Total Protein (6.3-8.2) g/dL Albumin (3.5-5.0) g/dL Globulin (1.7-4.1) g/dL Albumin/Globulin Ratio (1.0-2.8) TSH (0.47-4.68) uIU/mL Free T4 (0.78-2.19) ng/dL Serum , Qual (Negative) Urine RBC (0-5/HPF) Urine WBC (0-5/HPF) Ur Squamous Epith Cells (0-5/HPF) Amorphous Sediment Urine Bacteria (None) Ur Culture Indicated? Salicylates (<20) mg/dL U Opiates 300ng/mL cut (Negative) Ur Oxycodone Screen (Negative) Urine Methadone Screen (Negative) Acetaminophen (10-30) ug/mL Ur Barbiturates Screen (Negative) U Tricyclic Antidepress (Negative) Ur Phencyclidine Scrn (Negative) Ur Amphetamines Screen (Negative) U Methamphetamines Scrn (Negative) Ur MDMA Scrn (Ecstasy) (Negative) U Benzodiazepines Scrn (Negative) Urine Cocaine Screen (Negative) U Marijuana (THC) Screen (Negative) Ethyl Alcohol ( - 10) mg/dL SARS-CoV-2 (PCR) Negative (Negative) Point of Care Testing Test Results Negative Urine Dip Bedside Urine Glucose Negative Bedside Urine Bilirubin - Negative Bedside Urine Ketone - Negative Urine Specific [place] 1.015 Bedside Urine Occult Blood - Negative Bedside Urine pH 7 Bedside Urine Protein + 30 Bedside Urine Urobilinogen - Negative Bedside Urine Nitrite - Negative Bedside Urine Leukocytes - Negative Esterase MDM Narrative Medical decision making narrative: [place] 01/06/22: Patient who is well known to myself in the emergency department presents to Dr. Laughlin overnight for the 4th time in 4 days patient was screaming, paranoid hitting individuals she has been walking into traffic daily despite being directed not to by traffic as well as police it has been walking into shops in the community. I spoke with DCR yesterday morning who did not attain the patient. Patient had received Zyprexa at that time and had calmed. She had Haldol overnight into today and so her mentation is somewhat improved but unlikely to stay improved. She is part of a pact team and they are supposed to help find her and give her medication but she states she does not think that she has received it for at least several days outside of what she is been given on her ER visits. Patient is not suicidal or homicidal but does appear to be gravely disabled. She has a known less restrictive order in terms of ongoing nonprescribed substance use. Patient signed out to myself she is currently medically cleared. DCR has been contacted and K[facility] Cha does elect to detain patient. Placement was found. Patient has been cooperative during the day. Working on setting up transportation. Patient signed out while arranging this with Dr. Dupree. [1900] (Joon) Patient received in sign out from [[place]]. I have reviewed the clinical course and performed an independent history and physical exam. She is resting comfortably. EMS has called back and will arrive at about 2300 to take her to [facility] in [place]. <Harvey Dupree, DO - Last Filed: 01/06/22 23:09> Critical Care Time Critical Care Time: Yes Total Critical Care Time: 35 Attestation: Critical Care Time [35] minutes: Critical care time is separate from other billable procedures. This critical care time includes consultation with family and other consulting doctors, review of records, and interpretation of data from labs, EKGs, imaging, etc. Discharge Plan Departure Patient Disposition: Xfer Psychiatric Hosp Clinical Impression: Acute psychosis, Chronic schizophrenia, Methamphetamine abuse Referrals: Ele Rodgers MD [Primary Care Provider] -
[2022-01-05 22:25] LABS: UR Morphine/Opiate cutoff 300 Negative (Negative); Ur Creatinine Normal (Normal); Ur Specific Gravity Normal (Normal); Urine Amphetamines Positive (Negative); Urine Barbiturates Negative (Negative); Urine Benzodiazepines Negative (Negative); Urine Cocaine Negative (Negative); Urine MDMA Negative (Negative); Urine Methadone Negative (Negative); Urine Methamphetamines Positive (Negative); Urine Oxycodone Negative (Negative); Urine Phencyclidine Negative (Negative); Urine Tetrahydrocannabinol Negative (Negative); Urine Tricyclic Antidepressant Negative (Negative); Urine pH Normal (Normal)
[2022-01-05 22:28] LABS: RBC Urine None Seen (0-5/HPF); Squamous Epithelial Cell Urine 5-10 /HPF (0-5/HPF); WBC Urine None Seen (0-5/HPF)
[2022-01-05 22:29] LABS: Amorphous Sediment Urine 2+; Bacteria Urine Few (2-10)
[2022-01-05 22:30] LABS: Culture Indicated Urine Cult Not Indicated
[2022-01-05] MEDS: HALOPERIDOL 5 MG/ML VIAL 10 MG IM (22:45)
[2022-01-05] MEDS: diphenhydrAMINE 50 MG/ML VIAL IM (22:46)
[2022-01-05] MEDS: LORazepam 2 MG/ML INJ IM (22:46)
--- NOTE | 2022-01-06 01:23 | PC.NURSE ---
No suicide risk at this time, Pt has been sleeping soundly after receiving requested medications.
--- NOTE | 2022-01-06 03:05 | PC.NURSE ---
Patient laying back on gurney, continuing to sleep. She is able to reposition herself independently. Respirations equal, regular and unlabored. No acute distress noted.
[2022-01-06 08:09] LABS: Add Manual Diff / Slide Review NO; Basophils Absolute Auto 0 /uL (0-100); Basophils Percent Auto 0.6 % (0-2); Eosinophils Absolute Auto 200 /uL (0-450); Eosinophils Percent Auto 2.7 % (2-4); Hematocrit 33.3 % (36-46); Hemoglobin 11.2 g/dL (12.0-16.0); Lymphocytes Absolute Auto 1500 /uL (1100-4500); Lymphocytes Percent Auto 19.8 % (25-40); Mean Corpuscular HGB Conc 33.6 % (30-36); Mean Corpuscular Hemoglobin 27.7 PG (26-34); Mean Corpuscular Volume 82.3 fL (80-100); Monocytes Absolute Auto 600 /uL (0-900); Monocytes Percent Auto 7.5 % (3-14); Neutrophils Absolute Auto 5100 /uL (1500-7000); Neutrophils Percent Auto 69.4 % (50-75); Platelet Count 495 X10^3/uL (150-400); Red Blood Cell Count 4.04 X10^6/uL (4.0-5.2); Red Cell Distribution Width 14.6 % (11.6-14.8); White Blood Cell Count 7.4 X10^3/uL (4.5-11.0)
[2022-01-06 08:17] LABS: Acetaminophen < 10 ug/mL (10-30); Alanine Aminotransferase 10 IU/L (<35); Albumin 3.9 g/dL (3.5-5.0); Albumin Globulin Ratio 1.1 (1.0-2.8); Alkaline Phosphatase 74 U/L (38-126); Aspartate Aminotransferase 20 IU/L (14-36); BUN Creatinine Ratio 16.7 (6-22); Bilirubin Total 0.5 mg/dL (0.2-1.3); Blood Urea Nitrogen 13 mg/dL (7-17); Calcium 8.2 mg/dL (8.4-10.2); Carbon Dioxide 29 mmol/L (22-32); Chloride 97 mmol/L (98-107); Estimated Glomerular Filt Rate > 60 mL/min (>60); Ethanol (ETOH) < 10 mg/dL; Globulin 3.5 g/dL (1.7-4.1); Glucose 96 mg/dL (70-100); HEMOLYSIS < 15 (0-50); Potassium 3.4 mmol/L (3.4-5.1); Salicylate < 1.0 mg/dL (<20); Sodium 136 mmol/L (137-145); Total Protein 7.4 g/dL (6.3-8.2)
[2022-01-06 08:51] LABS: Free T4, Direct Thyroxine 1.23 ng/dL (0.78-2.19)
[2022-01-06 09:05] LABS: Thyroid Stimulating Hormone 3.63 uIU/mL (0.47-4.68)
[2022-01-06 09:27] LABS: Pregnancy Test Serum,Qual Negative (Negative)
[2022-01-06 09:54] LABS: COVID19 -Nasal RAPID Negative (Negative)
--- NOTE | 2022-01-06 11:04 | PC.NURSE ---
Pt walking around ED with steady gait. used bathroom appropriately. appears alert and oriented. answering questions appropriately. aware DCR has been dispatched. Asking to smoke a cigarette outside and advised we will not be able to accommodate that however we can provide a nicotine patch which pt declined. resting on stretcher, NAD.
--- NOTE | 2022-01-06 11:29 | PC.NURSE ---
1000 am DCR VOA sent and called to DCR [phone] 1030 am called DCR back for consult 1100 DCR returned call, all clinicals faxed at request to [phone] DCR to review and will call back and we will use the DCR telehealth device for evaluation
--- NOTE | 2022-01-06 13:02 | PC.NURSE ---
KIMI telehealth assessment with Diana Tran [phone]. pt woken up and speaking on tablet with KIMI virgen
--- NOTE | 2022-01-06 13:10 | PC.NURSE ---
KIMI Cha completed evaluation and is going to detain patient and revoke her least restrictive orders, reports pt is gravely disabled and danger to self. Rochelle is going to bring in and complete all legal mcfp with patient here at [facility] er.
[2022-01-06 18:15] VITALS: BP 165/91; PULSE 81; RESP 16; O2SAT 98
--- NOTE | 2022-01-06 19:17 | PC.NURSE ---
1745 DCR reji camargo here with alf papers Pt detained DCR Gravely disabled, revoked least restrictive. accepting facilty [facility] ([place], [place] ([facility]) accepting provider Pam Islas accepting person/facility notified Abed [phone] called to set up transport, multiple calls to [facility] to [facility] patient friday01/07/22 morning, arrival to [facility] 0725 am with [facility]a [facility] 0920 am called other ambulances and unable to arrange for timlier transport [facility] low staffing overnight but able to schedule for first thing in am [facility] declined transport no reason given [facility] declines because they cannot transport into [facility] amr does not have ambulances available overnight but willing to come friday if need to call back [facility] not allowed to leave [facility] for pickup [facility] only can transport with specific contracted facilities and theyre not contracted with us called facility spoke with BELKYS and notified him of pickup and arrival time, facility ok with this and saving bed for patient. call report in am with updated eta [phone]
--- NOTE | 2022-01-06 22:25 | PC.NURSE ---
9909 Spoke with Manidner at the [facility] to inform him that [facility] can tile picker the Pt from the ED @ 2315 0n 01/06/22 for arrival @ their facility @ 0115. Maninder acknowledged that would be fine. Number called [phone]
[2022-01-06 23:14] VITALS: BP 150/91; PULSE 88; RESP 16; O2SAT 99
== END 2022-01-06 23:29 ==
PROVIDERS: Emergency Medicine; Emergency Provider Emergency Medicine; Family Provider Family Medicine; PCP Family Medicine
DX: F20.9 Schizophrenia, unspecified (principal); F15.10 Other stimulant abuse, uncomplicated; Z20.822 Contact with and (suspected) exposure to COVID-19
CPT/HCPCS: 36415; 80053; 80305; 80320; 80329; 81003; 81015; 81025; 84439; 84443; 84703; 85025; 87635; 93005; 93010; 96372; 99284; 99285; C9803; G0480; J1200; J1630; J2060

== ENCOUNTER 2022-01-12 21:30 | Emergency (ER) | payer OTHER, MEDICAID, SELFPAY ==
[2022-01-12 21:35] VITALS: BP 185/97; PULSE 100; RESP 18; TEMP 36.9; O2SAT 97
[2022-01-12] MEDS: OLANZapine ODT 10 MG TAB PO (21:50)
--- NOTE | 2022-01-12 21:54 | ED.PSYCH ---
HPI - Psych General Chief Complaint: Psychiatric Symptoms Stated Complaint: Paranoid Time Seen by Provider: 01/12/22 21:39 Source: patient and EMS Mode of arrival: EMS History of Present Illness HPI Narrative: Patient is a 41-year-old female. Well known to myself. Was recently admitted to a mental health facility out of this emergency department by another provider. She was subsequently discharged. She is back in the local area. She stated that she was staying in a hotel tonight. She became very paranoid thinking somebody was after her. She can not say specifically who was. She is not started any of the medications that were prescribed to her. She stated that she was going to pick them up at the [facility] at the beginning of the week. Patient presents very similar to what she has in the past. She is frequently paranoid and concerned about a someone chasing her. She contacted EMS. She ambulated into the emergency department by EMS. She has been somewhat cooperative. She is asking for ?a shot? a medication to try to help with her symptoms. Related Data Home Medications Medication Instructions Recorded Confirmed Unobtainable 09/29/20 09/29/20 Allergies Allergy/AdvReac Type Severity Reaction Status Date / Time No Known Drug Allergies Allergy Verified 01/12/22 21:35 Review of Systems Review of Systems Narrative: Review of systems unobtainable except what is listed in the HPI given the patient's presenting mental status Patient History Medical History Drug abuse Schizophrenia Social History Smoking Status: Current every day smoker Smoking Status: Current every day smoker tobacco type: cigarettes alcohol intake frequency: other Substance Use Type: methamphetamine and unknown Exam Initial Vital Signs Initial Vital Signs: Vital Signs Temperature 98.4 F 01/12/22 21:35 Pulse Rate 100 H 01/12/22 21:35 Respiratory Rate 18 01/12/22 21:35 Blood Pressure 185/97 H 01/12/22 21:35 Pulse Oximetry 97 01/12/22 21:35 Oxygen Delivery Method 01/12/22 21:35 Const General: anxious, No combative, disheveled and No ill appearing HENMT Head: normal to inspection Resp Effort & Inspection: normal respiratory effort Cardio Rate: regular rate Neuro Gait: normal gait Extrem Other: No gross deformities, patient is ambulatory Psych Other: Patient presents in her common state of distress and being disheveled. She obviously is paranoid stating that someone is after her. Course Orders Ordered: ED Orders 01/12/22 21:46 Consult to [employer]CH[employer]ICIAN - Weighmaster Lead Stat Discontinued Medications Lorazepam (Lorazepam 2 Mg/Ml Inj) 2 mg IM NOW ONE Stop: 01/12/22 21:56 Last Admin: 01/12/22 21:57 Dose: 2 mg Documented By: AT Olanzapine (Olanzapine Odt 10 Mg Tab) 10 mg PO NOW ONE Stop: 01/12/22 21:43 Last Admin: 01/12/22 21:50 Dose: 10 mg Documented By: AT Vital Signs Vital signs: Vital Signs - 8 hr 01/12/22 21:35 Temperature 98.4 F Pulse Rate 100 H Respiratory Rate 18 Blood Pressure 185/97 H Pulse Oximetry 97 Oxygen Delivery Method Room Air MDM - Psych MDM Narrative Medical decision making narrative: Patient is much calmer than when she arrived. She is ambulatory. She is at her baseline mental status. She states she would like to be discharged. She does have a hotel to stay in this evening. Discharge Plan Departure Patient Disposition: Home Clinical Impression: Paranoia Activity Restrictions/Additional Instructions: Take all of your medications as directed Prescriptions: No Action Unobtainable Referrals: Ele Rodgers MD [Primary Care Provider] -
[2022-01-12] MEDS: LORazepam 2 MG/ML INJ IM (21:57)
== END 2022-01-13 00:43 | disposition home or self-care (01) ==
PROVIDERS: Emergency Provider Emergency Medicine; Family Provider Family Medicine; PCP Family Medicine
DX: F22 Delusional disorders (principal)
CPT/HCPCS: 96372; 99284; J2060

== ENCOUNTER 2022-01-13 03:18 | Emergency (ER) | payer OTHER, MEDICAID, SELFPAY ==
[2022-01-13 03:20] VITALS: BMI 29.7
[2022-01-13 03:24] VITALS: BP 189/99; PULSE 106; RESP 18; TEMP 36.8; O2SAT 96
--- NOTE | 2022-01-13 03:29 | ED.RECABL ---
HPI - Recheck/Abnormal Lab/Rx General Chief Complaint: Recheck/Abnormal Lab/Rx Stated Complaint: paranoid Time Seen by Provider: 01/13/22 03:29 Source: patient Mode of arrival: EMS History of Present Illness HPI narrative: 41-year-old female. History of schizophrenia. Was seen just a few hours ago when my shift for paranoia. She was given olanzapine and Ativan. She calmed down. She felt better. Wanted to be discharged. She was discharged. She went back to the hotel where she is staying. She states she became paranoid again. She became scared. She did know what to do. She called EMS. Was brought back to the emergency department. She is no new complaints other than still being paranoid. Related Data Home Medications Medication Instructions Recorded Confirmed Unobtainable 09/29/20 09/29/20 Allergies Allergy/AdvReac Type Severity Reaction Status Date / Time No Known Drug Allergies Allergy Verified 01/12/22 21:35 Review of Systems Review of Systems Narrative: See HPI Psychiatric Comments: Paranoid Patient History Medical History Drug abuse Schizophrenia Social History Smoking Status: Current every day smoker Smoking Status: Current every day smoker tobacco type: cigarettes alcohol intake frequency: other Substance Use Type: methamphetamine and unknown Exam Initial Vital Signs Initial Vital Signs: Vital Signs Pulse Rate 106 H 01/13/22 03:24 Respiratory Rate 18 01/13/22 03:24 Blood Pressure 189/99 H 01/13/22 03:24 Pulse Oximetry 96 01/13/22 03:24 Const Other: Disheveled HENMT Head: normal to inspection and normocephalic Resp Other: No respiratory distress Skin Other: Dirty skin without rashes Neuro Other: Awake and alert Psych Other: Disheveled Course Orders Ordered: Discontinued Medications Haloperidol (Haloperidol 5 Mg/Ml Vial) 5 mg IM NOW ONE Stop: 01/13/22 03:30 Last Admin: 01/13/22 03:34 Dose: 5 mg Vital Signs Vital signs: Vital Signs - 8 hr 01/13/22 03:24 Pulse Rate 106 H Respiratory Rate 18 Blood Pressure 189/99 H Pulse Oximetry 96 MDM - Recheck/Abnormal Lab/Rx MDM Narrative Medical decision making narrative: Some and the was asking for a shot of medication to try to help her. She was given a shot of Haldol. After a period of time she stated that she felt better. She apologized for coming back this morning because she was scared. She states that she was no longer scared. She felt like she was no longer paranoid. She has a hotel room that she would like to go back to. She declined an offer for any more resources. Offered to let her stay here in the emergency department longer but she declined this as well. Discharge Plan Departure Patient Disposition: Home Clinical Impression: Paranoia Prescriptions: No Action Unobtainable Referrals: Ele Rodgers MD [Primary Care Provider] -
[2022-01-13] MEDS: HALOPERIDOL 5 MG/ML VIAL IM (03:34)
--- NOTE | 2022-01-13 04:59 | PC.NURSE ---
pt resting quietly with eyes closed resp even and unlabored
== END 2022-01-13 08:36 | disposition home or self-care (01) ==
PROVIDERS: Emergency Provider Emergency Medicine; Family Provider Family Medicine; PCP Family Medicine
DX: F22 Delusional disorders (principal)
CPT/HCPCS: 96372; 99283; J1630

== ENCOUNTER 2022-01-13 19:18 | Emergency (ER) | payer OTHER, MEDICAID, SELFPAY ==
[2022-01-13 19:21] VITALS: BP 186/96; PULSE 95; RESP 18; TEMP 35.9; BMI 25.8
--- NOTE | 2022-01-13 19:34 | ED.PSYCH ---
HPI - Psych General Chief Complaint: Psychiatric Symptoms Stated Complaint: Psychiatric symptoms Time Seen by Provider: 01/13/22 19:30 Source: patient Mode of arrival: Ambulatory History of Present Illness HPI Narrative: Patient is a 41-year-old female. Well known to myself. Has actually been here in the emergency department carefree night for the past couple nights for issues concerning paranoia. She has a known issue with schizophrenia. Tonight she arrives to the ER concerned that someone as chasing her. This has been a common presentation for her. She is actually much more calm this evening them when I have seen her in the past. She is cooperative. She denies suicidal/homicidal ideation. She states that she would like some medication to try to help with the symptoms that she is having. She actually is asking for slightly higher dose than what we have given her in the past. She states she has an appointment tomorrow morning at the [facility] in order to get her medications. She does currently have a hotel room where she is staying. Related Data Home Medications Medication Instructions Recorded Confirmed Unobtainable 09/29/20 09/29/20 Allergies Allergy/AdvReac Type Severity Reaction Status Date / Time No Known Drug Allergies Allergy Verified 01/12/22 21:35 Review of Systems Constitutional Constitutional: Reports system reviewed and no additional complaints, except as documented Integumentary/Breasts Skin/Breast: Reports system reviewed and no additional complaints, except as documented Psychiatric Psychiatric: Reports system reviewed and no additional complaints, except as documented Patient History Medical History Drug abuse Schizophrenia Social History Smoking Status: Current every day smoker Smoking Status: Current every day smoker tobacco type: cigarettes alcohol intake frequency: other Substance Use Type: methamphetamine and unknown Exam Initial Vital Signs Initial Vital Signs: Vital Signs Temperature 96.7 F L 01/13/22 19:21 Pulse Rate 95 H 01/13/22 19:21 Respiratory Rate 18 01/13/22 19:21 Blood Pressure 186/96 H 01/13/22 19:21 Oxygen Delivery Method 01/13/22 19:21 Const General: disheveled Resp Effort & Inspection: normal respiratory effort Cardio Rate: regular rate Neuro General: patient alert, patient awake and moves all extremities Gait: normal gait Extrem General: normal to inspection Psych Other: Patient is disheveled. She answers only certain questions when asked. She did deny suicidal/homicidal ideation. She did talk about her recent hospital admission. She stated that she is feeling like someone is chasing her. She feels like those symptoms today are similar them which she had yesterday. Course Orders Ordered: Discontinued Medications Haloperidol (Haloperidol 5 Mg/Ml Vial) 5 mg IM NOW ONE Stop: 01/13/22 19:58 Last Admin: 01/13/22 20:00 Dose: 5 mg Documented By: LAVELLE Olanzapine (Olanzapine 10 Mg Vial) 10 mg IM NOW ONE Stop: 01/13/22 19:35 Last Admin: 01/13/22 20:27 Dose: Not Given Documented By: ALEXEY Vital Signs Vital signs: Vital Signs - 8 hr 01/13/22 19:21 Temperature 96.7 F L Pulse Rate 95 H Respiratory Rate 18 Blood Pressure 186/96 H Oxygen Delivery Method Room Air MDM - Psych MDM Narrative Medical decision making narrative: Patient presents today with similar symptoms that she has over the past couple days. She actually is somewhat more interactive and coherent today than what she has been in the past. She was able to have a conversation with me. She stated that she still is feeling paranoid that someone is chasing her and the scares her tremendously. She is asking for medications that we have given her in the past. She is requesting an IM dose of the medication. She is apologetic about being here. She actually stated that she was sorry about coming here so often that is just that she is very scared and does not know what to do. I asked her if she thought she needed another admission to the hospital given the symptoms. She stated that she would rather make it to her appointment that she had at the family sent her tomorrow morning and get started on her medications rather than be admitted to the hospital again. She asked specifically for ?an opportunity ?to let the medications work before being admitted to the hospital again. After her medication the patient slept in the emergency department calmly. There is no signs of trauma. Patient was calm and slept most of the night here in the ER. She would like to be discharged that she can follow-up with the [facility] in order to get her medication this morning. Discharge Plan Departure Patient Disposition: Home Clinical Impression: Paranoia Activity Restrictions/Additional Instructions: You do need to go by the [facility] when they open this morning so that you can receive your medications and start taking them as directed. Prescriptions: No Action Unobtainable Referrals: Ele Rodgers MD [Primary Care Provider] -
[2022-01-13] MEDS: HALOPERIDOL 5 MG/ML VIAL IM (20:00)
[2022-01-14 06:58] VITALS: PULSE 87; RESP 20; O2SAT 98
== END 2022-01-14 06:59 | disposition home or self-care (01) ==
PROVIDERS: Emergency Provider Emergency Medicine; Family Provider Family Medicine; PCP Family Medicine
DX: F22 Delusional disorders (principal)
CPT/HCPCS: 96372; 99283; J1630

== ENCOUNTER 2022-01-14 21:45 | Emergency (ER) | payer OTHER, MEDICAID, SELFPAY ==
[2022-01-14 22:19] VITALS: BP 190/96; PULSE 87; RESP 16; TEMP 36.6; O2SAT 97; BMI 29.7
--- NOTE | 2022-01-14 22:40 | ED_ITS ---
HPI - Recheck/Abnormal Lab/Rx General Chief Complaint: Recheck/Abnormal Lab/Rx Stated Complaint: Psychiatric symptoms Time Seen by Provider: 01/14/22 22:32 Source: patient Mode of arrival: Ambulatory Limitations: no limitations History of Present Illness HPI narrative: 41-year-old female. Well known to myself. History drug abuse and schizophrenia. Is here for the 4th night in a row stating that she feels like someone is chasing her and is scared. She was seen last night during my shift. She was given IM Haldol. She rested comfortably. She was discharged in the morning. She stated that today she did have a follow-up with the [facility]. She was there for short period of time. She stated that they were going to give her her medicines and come by her hotel room to do that however she went to the store and she felt like she missed this visit. She did not go back to the family sent her to follow-up. She states she is another appointment 1000 hours tomorrow to discuss a 28 day rehab. She is in the emergency department this evening. She presents today very similar to prior visits. She is very apologetic about being here. She states she is sorry that she is bothering us but she was very scared at the hotel room where she was staying and she did not know what to do. Related Data Home Medications Medication Instructions Recorded Confirmed Unobtainable 09/29/20 09/29/20 Allergies Allergy/AdvReac Type Severity Reaction Status Date / Time No Known Drug Allergies Allergy Verified 01/12/22 21:35 Review of Systems Cardiovascular Comments: She denies chest pain Respiratory Comments: Denies shortness of breath Gastrointestinal Comments: Denies GI symptoms Psychiatric Psychiatric: Reports system reviewed and no additional complaints, except as documented Patient History Medical History Drug abuse Schizophrenia Social History Smoking Status: Current every day smoker Smoking Status: Current every day smoker tobacco type: cigarettes alcohol intake frequency: other Substance Use Type: methamphetamine and unknown Exam Initial Vital Signs Initial Vital Signs: Vital Signs Temperature 97.9 F 01/14/22 22:19 Pulse Rate 87 01/14/22 22:19 Respiratory Rate 16 01/14/22 22:19 Blood Pressure 190/96 H 10/24/22 22:19 Pulse Oximetry 97 01/14/22 22:19 Oxygen Delivery Method 01/14/22 22:19 Resp Effort & Inspection: normal respiratory effort Cardio Rate: regular rate Skin Other: Dirty skin, no rashes Neuro General: patient alert, patient awake and moves all extremities Gait: normal gait Extrem Other: No gross deformities Psych Other: Is cooperative, disheveled, apologetic, calm, scared Course Orders Ordered: Discontinued Medications Haloperidol (Haloperidol 5 Mg/Ml Vial) 5 mg IM NOW ONE Stop: 01/14/22 22:42 Last Admin: 01/14/22 23:07 Dose: 5 mg Documented By: Vital Signs Vital signs: Vital Signs - 8 hr 01/14/22 22:19 Temperature 97.9 F Pulse Rate 87 Respiratory Rate 16 Blood Pressure 190/96 H Pulse Oximetry 97 Oxygen Delivery Method Room Air MDM - Recheck/Abnormal Lab/Rx MDM Narrative Medical decision making narrative: This is the 4th night in a row that I have had some and that here in the emergency department. She presents tonight very similar to what she has the past 4 nights. She is apologetic. She is disheveled. She denied the offer for food. She is asking for an IM shot of medication. She stated that whenever she was given last evening seemed to help tremendously. I gave her 5 mg of Haldol IM last evening. She was asking for the same thing this evening. I did discuss the case with the DCR since this is the 4th night in a row that she is been here. We had a discussion about her. She is been detained multiple times in the past. We talked about whether not she would meet criteria for grave disability. Every time that she is detained for various reasons she goes to a facility but is discharged after 1-3 days. She goes right back to the street. We did discuss that Claire actually would meet criteria for half-way at any given time on any particular day. We discussed whether not that would be beneficial for her once again. The decision was made by myself and the DCR to not did take her this evening. This is obviously an unfortunate situation without a good plan for resolution. Claire will remain in the emergency department until she would like to leave at which time we will discharge her however I am going to provide her name to our social workers and also the administration of the hospital to see if there are any further things in the community that we can do for Claire. Care turned over to Dr. Virginia simpson isposition. Discharge Plan Departure Patient Disposition: Home Clinical Impression: Paranoia Prescriptions: No Action Unobtainable Referrals: Ele Rodgers MD [Primary Care Provider] -
[2022-01-14] MEDS: HALOPERIDOL 5 MG/ML VIAL IM (23:07)
== END 2022-01-15 07:48 | disposition home or self-care (01) ==
PROVIDERS: Emergency Provider Emergency Medicine; Family Provider Family Medicine; PCP Family Medicine
DX: F22 Delusional disorders (principal)
CPT/HCPCS: 96372; 99283; J1630

== ENCOUNTER 2022-01-15 16:53 | Emergency (ER) | payer OTHER, MEDICAID, SELFPAY ==
[2022-01-15 17:34] VITALS: BP 159/92; PULSE 88; RESP 18; TEMP 37; O2SAT 98; BMI 26.6
[2022-01-15 18:47] LABS: Add Manual Diff / Slide Review NO; Basophils Absolute Auto 100 /uL (0-100); Basophils Percent Auto 0.8 % (0-2); Eosinophils Absolute Auto 300 /uL (0-450); Hematocrit 35.2 % (36-46); Hemoglobin 11.9 g/dL (12.0-16.0); Lymphocytes Absolute Auto 1800 /uL (1100-4500); Lymphocytes Percent Auto 22.4 % (25-40); Mean Corpuscular HGB Conc 33.8 % (30-36); Mean Corpuscular Hemoglobin 27.7 PG (26-34); Monocytes Absolute Auto 600 /uL (0-900); Monocytes Percent Auto 7.4 % (3-14); Neutrophils Absolute Auto 5300 /uL (1500-7000); Neutrophils Percent Auto 65.4 % (50-75); Platelet Count 447 X10^3/uL (150-400); Red Cell Distribution Width 14.3 % (11.6-14.8); White Blood Cell Count 8.1 X10^3/uL (4.5-11.0)
--- NOTE | 2022-01-15 18:49 | CM.SWNOTE ---
[facility] [place] Pt is a 41 year old female with history of polysubstance use and schizophrenia that presents to the ED with compliant that someone is following her. Pt has visited this ED everyday for the last four days with similar compliant. Recent labs indicate methamphetamine use. Pt reports that she has not been compliant with her medication, Olanzapine for the last few days. Pt requests voluntary inpatient psychiatric hospitalization at [facility], where she was detained on 12/21/21. Pt sitting quietly when SW met at bedside. Pt's speech was pressured and a bit garbled, making it difficult for SW to understand. Pt's stated mood was afraid and anxious that someone is trying to get her. Pt denies visual or auditory hallucinations and does not appear to be responding to internal stimuli. Pt denies SI or HI. Pt denies drug or alcohol use. Pt reports that she sees the [facility] PACT team. SERGEY called [facility] PACT team and spoke to Jonah Phoenix. Jonah reports that the PACT team saw patient today and presented her with her medications. Jonah reports that the PACT team has repeatedly attempted to get patient placed on an KELLI detainment with no success. Jonah inquired if pt was given long acting anti-psychotic injectable at ED and SERGEY confirms that patient has not received any in her visits to the ED. Jonah reports that the PACT team plans to see pt in community tomorrow to see if she is interested in voluntary KELLI treatment. SERGEY called DCR and spoke to Andrea Jolly, who reports that patient has been detained 10 times in the last 12 months. Andrea reports that patient was last released from a facility on Friday, 01/11. Andrea does not believe that revocation of LRO would be appropriate as patient is not presenting as gravely disabled, a risk to herself, or a risk to others. Andrea suggests that SW offer voluntary KELLI treatment, which could transition to voluntary inpatient hospitalization once pt had detoxed. SERGEY met patient at bedside and offered detox placement as a means to transition to inpatient psychiatric treatment and pt became angry and stated, Just forget it then. SERGEY attempted to continue to discuss options with patient but she stood up and walked out of the room. SERGEY discussed with ED Provider, who agrees that pt is not currently a high risk to herself and near her behavioral baseline. SERGEY called PACT team and informed Rafaelmingbharat that pt left ED voluntarily and that SW and ED Provider are in agreement that pt is not an imminent risk to herself or others. Jonah reports that the PACT team gives pt 30mg zyprexa (olanzapine) daily when they are able to find her in the community. Aditi Reeves MSW
[2022-01-15 19:05] LABS: Acetaminophen < 10 ug/mL (10-30); Alanine Aminotransferase 18 IU/L (<35); Albumin 4.5 g/dL (3.5-5.0); Albumin Globulin Ratio 1.2 (1.0-2.8); Alkaline Phosphatase 75 U/L (38-126); Aspartate Aminotransferase 28 IU/L (14-36); BUN Creatinine Ratio 20.5 (6-22); Bilirubin Total 0.4 mg/dL (0.2-1.3); Blood Urea Nitrogen 18 mg/dL (7-17); Calcium 8.6 mg/dL (8.4-10.2); Carbon Dioxide 30 mmol/L (22-32); Chloride 96 mmol/L (98-107); Estimated Glomerular Filt Rate > 60 mL/min (>60); Ethanol (ETOH) < 10 mg/dL; Globulin 3.7 g/dL (1.7-4.1); Glucose 125 mg/dL (70-100); HEMOLYSIS 20 (0-50); Potassium 3.7 mmol/L (3.4-5.1); Salicylate < 1.0 mg/dL (<20); Sodium 138 mmol/L (137-145); Total Protein 8.2 g/dL (6.3-8.2)
[2022-01-15 19:21] LABS: Free T4, Direct Thyroxine 1.46 ng/dL (0.78-2.19)
[2022-01-15 19:25] LABS: COVID19 -Nasal RAPID Negative (Negative)
[2022-01-15 19:34] LABS: Thyroid Stimulating Hormone 2.15 uIU/mL (0.47-4.68)
== END 2022-01-15 18:47 | disposition left against medical advice (07) ==
PROVIDERS: Emergency Medicine; Emergency Provider Emergency Medicine; Family Provider Family Medicine; PCP Family Medicine
DX: F22 Delusional disorders (principal); F15.10 Other stimulant abuse, uncomplicated; Z20.822 Contact with and (suspected) exposure to COVID-19
CPT/HCPCS: 36415; 80053; 80320; 80329; 84439; 84443; 85025; 87635; 99283; C9803; G0480

== ENCOUNTER 2022-01-16 10:27 | Emergency (ER) | payer OTHER, MEDICAID, SELFPAY ==
[2022-01-16 10:43] VITALS: BP 196/96; PULSE 110; RESP 20; TEMP 36.7; O2SAT 97
--- NOTE | 2022-01-16 10:57 | ED.PSYCH ---
HPI - Psych General Chief Complaint: Psychiatric Symptoms Stated Complaint: someone is chasing her Time Seen by Provider: 01/16/22 10:57 Source: patient Mode of arrival: Ambulatory History of Present Illness HPI Narrative: Patient is a 41-year-old female well known to the myself and this facility, history methamphetamine use, hallucinations and paranoia. This is her 5th emergency department visit in the last week and 10th visit this month. Today she presents with fear of someone going to hit her in the face. She denies any harm to herself now. She previously has got Haldol which has helped her symptoms. She apparently was here yesterday, seen by social work in triage. DC are has been contacted previously states that she has been detained 10 times in the last 12 months. She was previously released from a facility on FridayJanuary 11. She is followed by PACT team and does receive Zyprexa 30 mg from them. She denies any thoughts of self-harm or harming others but is quite paranoid and would like to feel safe. Related Data Home Medications Medication Instructions Recorded Confirmed Unobtainable 09/29/20 09/29/20 Allergies Allergy/AdvReac Type Severity Reaction Status Date / Time No Known Drug Allergies Allergy Verified 01/12/22 21:35 Review of Systems Review of Systems Narrative: GENERAL: Denies chills,fever HEENT: Denies throat pain RESPIRATORY: Denies dyspnea, cough, wheezing CARDIOVASCULAR: Denies chest pain, palpitations GASTROINTESTINAL: Denies nausea, vomiting MUSCULOSKELETAL: Denies extremity pain, injury SKIN: No rash, no laceration, no pruritus NEUROLOGIC: Denies weakness, dizziness, headache, numbness 8 point review of systems is negative except for those stated above and HPI Psychiatric Psychiatric: Reports as per HPI, Reports paranoia and Reports visual hallucinations Patient History Medical History Drug abuse Schizophrenia Social History Smoking Status: Current every day smoker Smoking Status: Current every day smoker tobacco type: cigarettes alcohol intake frequency: other Substance Use Type: methamphetamine and unknown Exam Initial Vital Signs Initial Vital Signs: Vital Signs Temperature 98.1 F 01/16/22 10:43 Pulse Rate 110 H 01/16/22 10:43 Respiratory Rate 20 01/16/22 10:43 Blood Pressure 196/96 H 01/16/22 10:43 Pulse Oximetry 97 01/16/22 10:43 Oxygen Delivery Method 01/16/22 10:43 GENERAL: Disheveled 41-year-old female CARDIOVASCULAR: peripheral pulses in tact, cap refill <2 sec RESPIRATORY: No respiratory distress, speaks in full sentences without difficulty [ABDOMEN: Soft, nontender, no guarding or rebound] EXTREMITIES: Normal range of motion, no clubbing or edema. Neurovascularly intact NEUROLOGICAL: Cranial nerves II through XII grossly intact. Normal gait and speech. SKIN: Warm, dry, no petechiae, no rashes or lesions. Psych Appearance: disheveled (homeless) Course Orders Ordered: ED Orders 01/16/22 11:06 EKG-12 Lead Stat 01/16/22 11:07 Consult to [facility] - Sales Marketing Director Urgent 01/16/22 11:27 Complete Blood Count AUTO DIFF Stat Comprehensive Metabolic Panel Stat Ethanol (ETOH) Stat Discontinued Medications Haloperidol (Haloperidol 5 Mg/Ml Vial) 5 mg IM NOW ONE Stop: 01/16/22 10:59 Last Admin: 01/16/22 11:03 Dose: 5 mg Documented By: DIAMOND Lorazepam (Lorazepam 0.5 Mg Tablet) 1 mg PO NOW ONE Stop: 01/16/22 11:07 Last Admin: 01/16/22 11:10 Dose: 1 mg Documented By: VIVIEN Vital Signs Vital signs: Vital Signs - 8 hr 01/16/22 10:43 Temperature 98.1 F Pulse Rate 110 H Respiratory Rate 20 Blood Pressure 196/96 H Pulse Oximetry 97 Oxygen Delivery Method Room Air MDM - Psych Lab Data Result diagrams: 01/16/22 11:27 01/16/22 11:27 Labs: Lab Results 01/16/22 01/16/22 Range/Units 11:27 11:27 WBC 7.6 (4.5-11.0) X10^3/uL RBC 4.43 (4.0-5.2) X10^6/uL Hgb 12.4 (12.0-16.0) g/dL Hct 36.6 (36-46) % MCV 82.7 (80-100) fL MCH 27.9 (26-34) PG MCHC 33.7 (30-36) % RDW 14.4 (11.6-14.8) % Plt Count 427 H (150-400) X10^3/uL Neut % (Auto) 79.2 H (50-75) % Lymph % (Auto) 12.7 L (25-40) % Ponce % (Auto) 6.1 (3-14) % Eos % (Auto) 1.3 L (2-4) % Baso % (Auto) 0.7 (0-2) % Neut # (Auto) 6100 (5525-9196) /uL Lymph # (Auto) 1000 L (4982-4620) /uL Ponce # (Auto) 500 (0-900) /uL Eos # (Auto) 100 (0-450) /uL Baso # (Auto) 100 (0-100) /uL Sodium 138 (137-145) mmol/L Potassium 3.3 L (3.4-5.1) mmol/L Chloride 99 (98-107) mmol/L Carbon Dioxide 26 (22-32) mmol/L BUN 15 (7-17) mg/dL Creatinine 0.96 (0.52-1.04) mg/dL Estimated GFR > 60 (>60) mL/min BUN/Creatinine Ratio 15.6 (6-22) Glucose 99 (70-100) mg/dL Calcium 8.8 (8.4-10.2) mg/dL Total Bilirubin 0.7 (0.2-1.3) mg/dL AST 23 (14-36) IU/L ALT 16 (<35) IU/L Alkaline Phosphatase 81 (38-126) U/L Total Protein 8.3 H (6.3-8.2) g/dL Albumin 4.7 (3.5-5.0) g/dL Globulin 3.6 (1.7-4.1) g/dL Albumin/Globulin Ratio 1.3 (1.0-2.8) Ethyl Alcohol < 10 ( - 10) mg/dL MDM Narrative Medical decision making narrative: Patient denies suicidal homicidal ideations. She is here multiple times this week. She does not want to stay. Blood work is overall reassuring. She when out to smoke a cigarette she then came back and then decided to leave again. She was given Haldol. She is followed outpatient leave with the team. At this point difficult to say if she is gravely disabled with her frequent ED visits however does not meet involuntary criteria at this time. She left before we could have a conversation Discharge Plan Departure Patient Disposition: Left Against Medical Advice Clinical Impression: Left against medical advice Prescriptions: No Action Unobtainable Referrals: Ele Rodgers MD [Primary Care Provider] - Stand Alone Forms: Against Medical Advice
[2022-01-16] MEDS: HALOPERIDOL 5 MG/ML VIAL IM (11:03)
[2022-01-16] MEDS: LORazepam 0.5 MG TABLET 1 MG PO (11:10)
[2022-01-16 11:34] LABS: Add Manual Diff / Slide Review NO; Basophils Absolute Auto 100 /uL (0-100); Basophils Percent Auto 0.7 % (0-2); Eosinophils Absolute Auto 100 /uL (0-450); Eosinophils Percent Auto 1.3 % (2-4); Hematocrit 36.6 % (36-46); Hemoglobin 12.4 g/dL (12.0-16.0); Lymphocytes Absolute Auto 1000 /uL (1100-4500); Lymphocytes Percent Auto 12.7 % (25-40); Mean Corpuscular HGB Conc 33.7 % (30-36); Mean Corpuscular Hemoglobin 27.9 PG (26-34); Mean Corpuscular Volume 82.7 fL (80-100); Monocytes Absolute Auto 500 /uL (0-900); Monocytes Percent Auto 6.1 % (3-14); Neutrophils Absolute Auto 6100 /uL (1500-7000); Neutrophils Percent Auto 79.2 % (50-75); Platelet Count 427 X10^3/uL (150-400); Red Blood Cell Count 4.43 X10^6/uL (4.0-5.2); Red Cell Distribution Width 14.4 % (11.6-14.8); White Blood Cell Count 7.6 X10^3/uL (4.5-11.0)
[2022-01-16 11:45] LABS: Alanine Aminotransferase 16 IU/L (<35); Albumin 4.7 g/dL (3.5-5.0); Albumin Globulin Ratio 1.3 (1.0-2.8); Alkaline Phosphatase 81 U/L (38-126); Aspartate Aminotransferase 23 IU/L (14-36); BUN Creatinine Ratio 15.6 (6-22); Bilirubin Total 0.7 mg/dL (0.2-1.3); Blood Urea Nitrogen 15 mg/dL (7-17); Calcium 8.8 mg/dL (8.4-10.2); Carbon Dioxide 26 mmol/L (22-32); Chloride 99 mmol/L (98-107); Estimated Glomerular Filt Rate > 60 mL/min (>60); Ethanol (ETOH) < 10 mg/dL; Globulin 3.6 g/dL (1.7-4.1); Glucose 99 mg/dL (70-100); HEMOLYSIS < 15 (0-50); Potassium 3.3 mmol/L (3.4-5.1); Sodium 138 mmol/L (137-145); Total Protein 8.3 g/dL (6.3-8.2)
--- NOTE | 2022-01-16 11:45 | PC.NURSE ---
Pt feeling paranoid. When asked by physician if pt wanted to her herself, pt said no. Pt states she is worried people are trying to hurt her. Pt stated to RN that she was going to leave the ED. Physician spoke with patient to inform her ORDER MANAGEMENT SPECIALIST would be available to speak with her shortly. Pt went out to the lobby, states she was leaving but then 1 minute later knocked on the ED door to return to room 13. Pts RN advised. Physician advised. Patient sitting on the bed, quietly, in room. In no apparent distress.
--- NOTE | 2022-01-16 12:02 | PC.NURSE ---
This RN has tried twice to get a urine sample. Pt unable to perform a urine catch in either cup or a hat due to paranoia.
--- NOTE | 2022-01-16 12:24 | PC.NURSE ---
TRANSPORTATION OFFICER interviewed pt in room, pt walked out shortly thereafter without notifying staff.
--- NOTE | 2022-01-16 12:32 | CM.SWNOTE ---
Addendum entered by WYATT Luna 01/16/22 18:52: UPDATE: SERGEY received call from KIMI De La Vega. Ceferino reports that he would need to clearly see records that indicate how pt's behavior is different from baseline and how she is a danger to herself or gravely disabled. Per Ceferino, pt is getting her needs met by continuing to utilize ED and receive psych meds when she is experiencing a mental health crisis. Ceferino would also like an affidavit from pt's PACT team before he would consider detaining patient. Ceferino reports that pt was placed on an KELLI detainment on 01/06 and was then released a few days later. Since pt's release, she has visited ED every day, multiple times a day. SERGEY called pt's PACT team and left a message requesting a return call to discuss. SERGEY received a call back from Jonah at PACT team. Jonah reports that per her staff in the community, [facility] has been encouraging patient to come to the ED when she experiences psychosis. Jonah reports that [facility] may be placing pressure on pt to seek emergency treatment with the threat of losing housing via the motel/hotel voucher they provide pt. Jonah reports that pt was previously housed through [facility] in [place], but was kicked out on 01/07 due to drug use. Pt will be eligible to reapply for [facility] program on February 20, 2022. Jonah reports that her PACT steam engineer Zev is scheduled to look for pt in community tomorrow, 01/17 at 4:40pm. Plan: Pt is currently sleeping and not appropriate for SW interview due to antipsychotic administration in ED. Once patient is alert and oriented, she will be assessed to see if she meets criteria for SW to call DCR or if she is willing to go to placement voluntarily, SW will attempt to get pt placed at appropriate facility. WYATT Luna Addendum entered by WYATT Luna 01/16/22 17:15: UPDATE: SERGEY consulted ED Provider, who believes that patient is not presenting at her current baseline, as she does not usually come to the ED five days in a row, several times a day. SW and ED Provider agree to run labs and medically clear patient to call DCR for evaluation. Plan: Once pt is medically clear, SW or ED RN will call DCR for evaluation. Addendum entered by WYATT Luna 01/16/22 16:23: UPDATE: SERGEY ammends earlier statement, pt is a 41 year old female with history of methamphetamine use and schizophrenia that presents with paranoid delusions. Pt returned to the ED via ambulance several hours after leaving to smoke a cigarette. Pt reports that she was at [employer] and she felt like someone was going to become hostile with her and hurt her. SW met pt, who continues to request hospitalization. Per discussion with pt's PACT steam engineer, Jonah, pt is likely at baseline and would not benefit from inpatient psychiatric hospitalization at this time. Pt does not meet criteria for DCR detainment, as she is not a danger to herself or others, or gravely disabled. Pt is able to secure housing and food through [facility] in [place]. SERGEY explains to patient that the only service we can refer for at this time is detox for the methamphetamine use. Pt reports that she is agreeable. SW called [facility], who reported that pt would be most appropriate for [facility]. SERGEY called [facility] and they do not have any intake appointments available at this time. [facility] informed SW that they start intakes again tomorrow at 6am on a first come, first serve basis. Plan: SW to consult ED Provider and SW Inspector Bullet Slugs on next steps. WYATT Luna Addendum entered by WYATT Luna 01/16/22 12:41: UPDATE: Pt returns to ED after smoking a cigarette outside. SERGEY discusses case with SW Inspector Bullet Slugs and calls DCR to determine if they want to send someone out to evaluate. SERGEY called DCR and is expecting a return call shortly. WYATT Luna Original Note: [facility] [place] ED Assessment Pt is a 41 year old female with history of polysubstance use and schizophrenia that presents to the ED with compliant that someone is following her. Pt has visited this ED everyday for the last five days with similar compliant. Pt reports that she has not been compliant with her medication, Olanzapine for the last few days. Pt pacing the room when SERGEY met at bedside. Pt's speech was pressured, repetitive, and somewhat disorganized. Pt's stated mood, I am scared someone is trying to be hostile with me and get me. I don't feel safe. Pt denies visual or auditory hallucinations and does not appear to be responding to internal stimuli. Pt denies SI and HI. Pt denies drug or alcohol use. Pt reports that she sees the [facility] PACT team. When asked what would make pt feel safe, pt reports that she does not know. Pt states, It's like a panic attack times 1000. SW asks pt if she thinks that psychiatric hospitalization would help and pt says that she is unsure. Pt repeatedly mentions that she need to complete a 28 day treatment. SW asks for clarification and pt is not able to provide any. SW explains to pt that she called the DCR yesterday and they did not see a reason to revoke her LRO and re-detain her, therefore she is not technically required to do any inpatient treatment at this time. Pt reports that she does not want to feel trapped at a psychiatric facility. SW validates this feeling but reiterates that pt would be required to stay at a psych hospital overnight and participate in groups and individual therapy if she decides she wants voluntary psychiatric hospitalization. Pt continues to pace and eventually reports that she will try leaving. Pt reports that she does not want to lose her housing through [facility] and that she has a PACT team appointment today at 3pm. SW alerts cupola charger and ED Provider that pt has decided to leave. WYATT Luna
== END 2022-01-16 13:26 | disposition left against medical advice (07) ==
PROVIDERS: Emergency Provider Emergency Medicine; Family Provider Family Medicine; PCP Family Medicine
DX: F22 Delusional disorders (principal)
CPT/HCPCS: 36415; 80053; 80320; 85025; 93005; 99284; J1630

== ENCOUNTER 2022-01-16 15:35 | Emergency (ER) | payer OTHER, MEDICAID, SELFPAY ==
[2022-01-16 15:35] VITALS: BP 173/74; PULSE 95; RESP 16; TEMP 36.9; O2SAT 98; BMI 24.2
--- NOTE | 2022-01-16 17:46 | ED_ITS ---
HPI - Psych General Chief Complaint: Psychiatric Symptoms Stated Complaint: psych Time Seen by Provider: 01/16/22 17:32 Related Data Home Medications Medication Instructions Recorded Confirmed Unobtainable 09/29/20 09/29/20 Allergies Allergy/AdvReac Type Severity Reaction Status Date / Time No Known Drug Allergies Allergy Verified 01/12/22 21:35 Patient History Medical History Drug abuse Schizophrenia Social History Smoking Status: Current every day smoker Smoking Status: Current every day smoker tobacco type: cigarettes alcohol intake frequency: other Substance Use Type: methamphetamine and unknown Exam Initial Vital Signs Initial Vital Signs: Vital Signs Temperature 98.4 F 01/16/22 15:35 Pulse Rate 95 H 01/16/22 15:35 Respiratory Rate 16 01/16/22 15:35 Blood Pressure 173/74 H 01/16/22 15:35 Pulse Oximetry 98 01/16/22 15:35 Oxygen Delivery Method 01/16/22 15:35 Course Orders Ordered: ED Orders 01/16/22 16:04 Consult to ACOUSTIC SENSOR OPERATOR - Aerospace Assembler Stat 01/16/22 17:17 Urine Drug Screen, Rapid Stat 01/16/22 17:30 Acetaminophen Stat Complete Blood Count AUTO DIFF Stat Comprehensive Metabolic Panel Stat Ethanol (ETOH) Stat Free T4, Direct Thyroxine Stat Salicylate Stat Thyroid Stimulating Hormone Stat Discontinued Medications Olanzapine (Olanzapine Odt 10 Mg Tab) 10 mg PO NOW ONE Stop: 01/16/22 17:36 Vital Signs Vital signs: Vital Signs - 8 hr 01/16/22 15:35 Temperature 98.4 F Pulse Rate 95 H Respiratory Rate 16 Blood Pressure 173/74 H Pulse Oximetry 98 Oxygen Delivery Method Room Air MDM - Psych Lab Data Result diagrams: 01/16/22 17:30 01/16/22 17:30 Discharge Plan Departure Prescriptions: No Action Unobtainable Referrals: Ele Rodgers MD [Primary Care Provider] -
[2022-01-16 17:47] LABS: Add Manual Diff / Slide Review NO; Basophils Absolute Auto 100 /uL (0-100); Basophils Percent Auto 0.8 % (0-2); Eosinophils Absolute Auto 200 /uL (0-450); Eosinophils Percent Auto 2.1 % (2-4); Hematocrit 34.2 % (36-46); Hemoglobin 11.8 g/dL (12.0-16.0); Lymphocytes Absolute Auto 1600 /uL (1100-4500); Lymphocytes Percent Auto 19.5 % (25-40); Mean Corpuscular HGB Conc 34.4 % (30-36); Mean Corpuscular Hemoglobin 28.3 PG (26-34); Mean Corpuscular Volume 82.3 fL (80-100); Monocytes Absolute Auto 400 /uL (0-900); Monocytes Percent Auto 5.3 % (3-14); Neutrophils Absolute Auto 5900 /uL (1500-7000); Neutrophils Percent Auto 72.3 % (50-75); Platelet Count 439 X10^3/uL (150-400); Red Blood Cell Count 4.16 X10^6/uL (4.0-5.2); Red Cell Distribution Width 14.4 % (11.6-14.8); White Blood Cell Count 8.2 X10^3/uL (4.5-11.0)
[2022-01-16] MEDS: OLANZapine ODT 10 MG TAB PO (17:55)
[2022-01-16 17:58] LABS: Acetaminophen < 10 ug/mL (10-30); Alanine Aminotransferase 16 IU/L (<35); Albumin 4.3 g/dL (3.5-5.0); Albumin Globulin Ratio 1.2 (1.0-2.8); Alkaline Phosphatase 76 U/L (38-126); Aspartate Aminotransferase 23 IU/L (14-36); BUN Creatinine Ratio 17.2 (6-22); Bilirubin Total 0.4 mg/dL (0.2-1.3); Blood Urea Nitrogen 16 mg/dL (7-17); Calcium 8.8 mg/dL (8.4-10.2); Carbon Dioxide 32 mmol/L (22-32); Chloride 98 mmol/L (98-107); Estimated Glomerular Filt Rate > 60 mL/min (>60); Ethanol (ETOH) < 10 mg/dL; Globulin 3.5 g/dL (1.7-4.1); Glucose 113 mg/dL (70-100); Potassium 3.6 mmol/L (3.4-5.1); Salicylate < 1.0 mg/dL (<20); Sodium 139 mmol/L (137-145); Total Protein 7.8 g/dL (6.3-8.2)
[2022-01-16 18:03] LABS: HEMOLYSIS < 15 (0-50)
--- NOTE | 2022-01-16 18:20 | ED.PSYCH ---
HPI - Psych <Cb Weber MD - Last Filed: 01/17/22 19:10> General Chief Complaint: Psychiatric Symptoms Stated Complaint: psych Time Seen by Provider: 01/16/22 17:32 History of Present Illness HPI Narrative: Patient here for paranoia. Her past psychiatric history is very complex. She does have current PAC services and housing at [facility]. I have spoken with various providers including Ceferino with [facility], Aditi with social work here. However the PAC team is limited on resources to see patient here today. Patient expresses paranoia that someone is after her. She was given Zyprexa orally here to this evening and currently sleeping. Patient was interviewed prior to my arrival. Patient's agitation requiring Zyprexa prior to my arrival. At this time review of system is limited due to patient sleeping. However on arrival this morning and this evening no SI or HI. Patient does have history of polysubstance abuse. Known to be noncompliant with her medications. At this time uncertain when last time the PAC team had contact with her. mesh worker Aditi is involved with her care. Is here currently. Please see notes from Aditi continued notes from yesterday Related Data Home Medications Medication Instructions Recorded Confirmed Unobtainable 09/29/20 09/29/20 Allergies Allergy/AdvReac Type Severity Reaction Status Date / Time No Known Drug Allergies Allergy Verified 01/12/22 21:35 Review of Systems <Cb Weber MD - Last Filed: 01/17/22 19:10> Review of Systems ROS Unobtainable: Unobtainable due to mental condition Patient History <Cb Weber MD - Last Filed: 01/17/22 19:10> Medical History Drug abuse Schizophrenia Social History Smoking Status: Current every day smoker Smoking Status: Current every day smoker tobacco type: cigarettes alcohol intake frequency: other Substance Use Type: methamphetamine and unknown Exam <Cb Weber MD - Last Filed: 01/17/22 19:10> Narrative Exam Narrative: GENERAL: in no distress, not toxic not dyspneic HEAD: Normocephalic. EYES: Pupils equal round No scleral icterus. ENT: Mucous membranes moist. NECK: Trachea midline. CARDIOVASCULAR: Regular rate and rhythm without murmurs RESPIRATORY: Clear to auscultation. Breath sounds equal bilaterally. No wheezes, rales, or rhonchi. GASTROINTESTINAL: Abdomen soft EXTREMITIES: No gross deformities. BACK: No flank tenderness. NEURO: Patient at this time is sleeping. Received Zyprexa prior to my arrival. SKIN: Warm and dry PSYCH: Awakes to voice only but falls back to sleep. Initial Vital Signs Initial Vital Signs: Vital Signs Temperature 98.4 F 01/16/22 15:35 Pulse Rate 95 H 01/16/22 15:35 Respiratory Rate 16 01/16/22 15:35 Blood Pressure 173/74 H 01/16/22 15:35 Pulse Oximetry 98 01/16/22 15:35 Oxygen Delivery Method 01/16/22 15:35 <Kaela Watkins DO - Last Filed: 01/17/22 10:39> Initial Vital Signs Initial Vital Signs: Vital Signs Temperature 98.4 F 01/16/22 15:35 Pulse Rate 95 H 01/16/22 15:35 Respiratory Rate 16 01/16/22 15:35 Blood Pressure 173/74 H 01/16/22 15:35 Pulse Oximetry 98 01/16/22 15:35 Oxygen Delivery Method 01/16/22 15:35 Course <Cb Weber MD - Last Filed: 01/17/22 19:10> Course Course Narrative: January 17, 2022 at 7:00 a.m.. Sign out to Dr Watkins, patient has slept through the course of the night. No new issues. Social work, Aditi has spoken to Ceferino with [facility], at this time no indication for involuntary hold. Aditi will be back today to review and speak with PAC team as well as patient's facility where she is residing about instructed patient to come here been having substance induced psychosis. Orders Ordered: Discontinued Medications Olanzapine (Olanzapine Odt 10 Mg Tab) 10 mg PO NOW ONE Stop: 01/16/22 17:36 Last Admin: 01/16/22 17:55 Dose: 10 mg Documented By: RAI Consultations Consultation #1: mesh worker Aditi has seen patient. She has spoken with Ceferino with [facility], they both have spoken with pact team as well. Evidently patient new housing has instructed patient to go the ER because of her metha use psychosis, Aditi [employer] will be contacting them regarding ER resources. At this time patient is voluntary. However is sleeping right now and will need reassessment when she wakes up. I spoke with Archie earlier at 6:30 p.m.. At this time, patient has voluntary and they will see her if needed however given her mental status right now, she received Zyprexa and sleeping right now. Will not be able to evaluate her. Aditi and Nirmal have indicated if patient awakes during the course of the night and decided to leave and is not SI or HI or presenting any safety concerns she may leave voluntarily. There is nothing to hold her for. Otherwise she may wait until the morning when Aditi returns to re-evaluate Time: 19:55 Vital Signs Vital signs: Vital Signs - 8 hr 01/17/22 07:56 Temperature 97.8 F Pulse Rate 80 Respiratory Rate 16 Blood Pressure 132/74 Pulse Oximetry 97 <Kaela Watkins DO - Last Filed: 01/17/22 10:39> Orders Ordered: Discontinued Medications Olanzapine (Olanzapine Odt 10 Mg Tab) 10 mg PO NOW ONE Stop: 01/16/22 17:36 Last Admin: 01/16/22 17:55 Dose: 10 mg Documented By: RAI Vital Signs Vital signs: Vital Signs - 8 hr 01/17/22 07:56 Temperature 97.8 F Pulse Rate 80 Respiratory Rate 16 Blood Pressure 132/74 Pulse Oximetry 97 MDM - Psych <Cb Weber MD - Last Filed: 01/17/22 19:10> Lab Data Result diagrams: 01/16/22 17:30 01/16/22 17:30 Labs: Lab Results 01/16/22 01/16/22 01/16/22 Range/Units 17:30 17:30 17:30 WBC 8.2 (4.5-11.0) X10^3/uL RBC 4.16 (4.0-5.2) X10^6/uL Hgb 11.8 L (12.0-16.0) g/dL Hct 34.2 L (36-46) % MCV 82.3 (80-100) fL MCH 28.3 (26-34) PG MCHC 34.4 (30-36) % RDW 14.4 (11.6-14.8) % Plt Count 439 H (150-400) X10^3/uL Neut % (Auto) 72.3 (50-75) % Lymph % (Auto) 19.5 L (25-40) % [place] % (Auto) 5.3 (3-14) % Eos % (Auto) 2.1 (2-4) % Baso % (Auto) 0.8 (0-2) % Neut # (Auto) 5900 (6177-1133) /uL Lymph # (Auto) 1600 (7514-0874) /uL [place] # (Auto) 400 (0-900) /uL Eos # (Auto) 200 (0-450) /uL Baso # (Auto) 100 (0-100) /uL Sodium 139 (137-145) mmol/L Potassium 3.6 (3.4-5.1) mmol/L Chloride 98 (98-107) mmol/L Carbon Dioxide 32 (22-32) mmol/L BUN 16 (7-17) mg/dL Creatinine 0.93 (0.52-1.04) mg/dL Estimated GFR > 60 (>60) mL/min BUN/Creatinine Ratio 17.2 (6-22) Glucose 113 H (70-100) mg/dL Calcium 8.8 (8.4-10.2) mg/dL Total Bilirubin 0.4 (0.2-1.3) mg/dL AST 23 (14-36) IU/L ALT 16 (<35) IU/L Alkaline Phosphatase 76 (38-126) U/L Total Protein 7.8 (6.3-8.2) g/dL Albumin 4.3 (3.5-5.0) g/dL Globulin 3.5 (1.7-4.1) g/dL Albumin/Globulin Ratio 1.2 (1.0-2.8) TSH 2.18 (0.47-4.68) uIU/mL Free T4 1.25 (0.78-2.19) ng/dL Urine Color Urine Appearance Urine pH (4.5-8.0) Ur Specific [place] (1.000-1.035) Urine Protein (Negative) Urine Glucose (UA) (Negative) g/dL Urine Ketones (NEGATIVE) Urine Occult Blood (Negative) Urine Nitrate (Negative) Urine Bilirubin (NEGATIVE) Urine Urobilinogen (0.2) E.U./dL Ur Leukocyte Esterase (NEGATIVE) Urine RBC (0-5/HPF) Urine WBC (0-5/HPF) Ur Squamous Epith Cells (0-5/HPF) Amorphous Sediment Urine Bacteria (None) Ur Culture Indicated? Urine Test (Negative) Salicylates < 1.0 (<20) mg/dL U Opiates 300ng/mL cut (Negative) Ur Oxycodone Screen (Negative) Urine Methadone Screen (Negative) Acetaminophen < 10 (10-30) ug/mL Ur Barbiturates Screen (Negative) U Tricyclic Antidepress (Negative) Ur Phencyclidine Scrn (Negative) Ur Amphetamines Screen (Negative) U Methamphetamines Scrn (Negative) Ur MDMA Scrn (Ecstasy) (Negative) U Benzodiazepines Scrn (Negative) Urine Cocaine Screen (Negative) U Marijuana (THC) Screen (Negative) Ethyl Alcohol < 10 ( - 10) mg/dL SARS-CoV-2 (PCR) (Negative) 01/17/22 01/17/22 01/17/22 Range/Units 07:47 07:47 07:47 WBC (4.5-11.0) X10^3/uL RBC (4.0-5.2) X10^6/uL Hgb (12.0-16.0) g/dL Hct (36-46) % MCV (80-100) fL MCH (26-34) PG MCHC (30-36) % RDW (11.6-14.8) % Plt Count (150-400) X10^3/uL Neut % (Auto) (50-75) % Lymph % (Auto) (25-40) % [place] % (Auto) (3-14) % Eos % (Auto) (2-4) % Baso % (Auto) (0-2) % Neut # (Auto) (3265-1390) /uL Lymph # (Auto) (5852-5007) /uL [place] # (Auto) (0-900) /uL Eos # (Auto) (0-450) /uL Baso # (Auto) (0-100) /uL Sodium (137-145) mmol/L Potassium (3.4-5.1) mmol/L Chloride (98-107) mmol/L Carbon Dioxide (22-32) mmol/L BUN (7-17) mg/dL Creatinine (0.52-1.04) mg/dL Estimated GFR (>60) mL/min BUN/Creatinine Ratio (6-22) Glucose (70-100) mg/dL Calcium (8.4-10.2) mg/dL Total Bilirubin (0.2-1.3) mg/dL AST (14-36) IU/L ALT (<35) IU/L Alkaline Phosphatase (38-126) U/L Total Protein (6.3-8.2) g/dL Albumin (3.5-5.0) g/dL Globulin (1.7-4.1) g/dL Albumin/Globulin Ratio (1.0-2.8) TSH (0.47-4.68) uIU/mL Free T4 (0.78-2.19) ng/dL Urine Color Yellow Urine Appearance Sl cloudy Urine pH 7.0 (4.5-8.0) Ur Specific [place] 1.010 (1.000-1.035) Urine Protein Trace H (Negative) Urine Glucose (UA) Negative (Negative) g/dL Urine Ketones Negative (NEGATIVE) Urine Occult Blood Negative (Negative) Urine Nitrate Negative (Negative) Urine Bilirubin Negative (NEGATIVE) Urine Urobilinogen 0.2 (0.2) E.U./dL Ur Leukocyte Esterase Negative (NEGATIVE) Urine RBC None seen (0-5/HPF) Urine WBC 0-1/hpf (0-5/HPF) Ur Squamous Epith Cells 0-1 /hpf (0-5/HPF) Amorphous Sediment 2+ Urine Bacteria None seen (None) Ur Culture Indicated? Cult not indicated Urine Test Negative (Negative) Salicylates (<20) mg/dL U Opiates 300ng/mL cut Negative (Negative) Ur Oxycodone Screen Negative (Negative) Urine Methadone Screen Negative (Negative) Acetaminophen (10-30) ug/mL Ur Barbiturates Screen Negative (Negative) U Tricyclic Antidepress Negative (Negative) Ur Phencyclidine Scrn Negative (Negative) Ur Amphetamines Screen Positive H (Negative) U Methamphetamines Scrn Positive H (Negative) Ur MDMA Scrn (Ecstasy) Negative (Negative) U Benzodiazepines Scrn Positive H (Negative) Urine Cocaine Screen Negative (Negative) U Marijuana (THC) Screen Negative (Negative) Ethyl Alcohol ( - 10) mg/dL SARS-CoV-2 (PCR) (Negative) 10/27/22 Range/Units 08:00 WBC (4.5-11.0) X10^3/uL RBC (4.0-5.2) X10^6/uL Hgb (12.0-16.0) g/dL Hct (36-46) % MCV (80-100) fL MCH (26-34) PG MCHC (30-36) % RDW (11.6-14.8) % Plt Count (150-400) X10^3/uL Neut % (Auto) (50-75) % Lymph % (Auto) (25-40) % [place] % (Auto) (3-14) % Eos % (Auto) (2-4) % Baso % (Auto) (0-2) % Neut # (Auto) (8389-4202) /uL Lymph # (Auto) (2166-2564) /uL [place] # (Auto) (0-900) /uL Eos # (Auto) (0-450) /uL Baso # (Auto) (0-100) /uL Sodium (137-145) mmol/L Potassium (3.4-5.1) mmol/L Chloride (98-107) mmol/L Carbon Dioxide (22-32) mmol/L BUN (7-17) mg/dL Creatinine (0.52-1.04) mg/dL Estimated GFR (>60) mL/min BUN/Creatinine Ratio (6-22) Glucose (70-100) mg/dL Calcium (8.4-10.2) mg/dL Total Bilirubin (0.2-1.3) mg/dL AST (14-36) IU/L ALT (<35) IU/L Alkaline Phosphatase (38-126) U/L Total Protein (6.3-8.2) g/dL Albumin (3.5-5.0) g/dL Globulin (1.7-4.1) g/dL Albumin/Globulin Ratio (1.0-2.8) TSH (0.47-4.68) uIU/mL Free T4 (0.78-2.19) ng/dL Urine Color Urine Appearance Urine pH (4.5-8.0) Ur Specific [place] (1.000-1.035) Urine Protein (Negative) Urine Glucose (UA) (Negative) g/dL Urine Ketones (NEGATIVE) Urine Occult Blood (Negative) Urine Nitrate (Negative) Urine Bilirubin (NEGATIVE) Urine Urobilinogen (0.2) E.U./dL Ur Leukocyte Esterase (NEGATIVE) Urine RBC (0-5/HPF) Urine WBC (0-5/HPF) Ur Squamous Epith Cells (0-5/HPF) Amorphous Sediment Urine Bacteria (None) Ur Culture Indicated? Urine Test (Negative) Salicylates (<20) mg/dL U Opiates 300ng/mL cut (Negative) Ur Oxycodone Screen (Negative) Urine Methadone Screen (Negative) Acetaminophen (10-30) ug/mL Ur Barbiturates Screen (Negative) U Tricyclic Antidepress (Negative) Ur Phencyclidine Scrn (Negative) Ur Amphetamines Screen (Negative) U Methamphetamines Scrn (Negative) Ur MDMA Scrn (Ecstasy) (Negative) U Benzodiazepines Scrn (Negative) Urine Cocaine Screen (Negative) U Marijuana (THC) Screen (Negative) Ethyl Alcohol ( - 10) mg/dL SARS-CoV-2 (PCR) Negative (Negative) ECG Data Interpretation: Normal sinus rhythm rate [address] elevation or depression. QT 495. Prolonged QT <Kaela Watkins, DO - Last Filed: 01/17/22 10:39> Lab Data Labs: Lab Results 01/16/22 01/16/22 01/16/22 Range/Units 17:30 17:30 17:30 WBC 8.2 (4.5-11.0) X10^3/uL RBC 4.16 (4.0-5.2) X10^6/uL Hgb 11.8 L (12.0-16.0) g/dL Hct 34.2 L (36-46) % MCV 82.3 (80-100) fL MCH 28.3 (26-34) PG MCHC 34.4 (30-36) % RDW 14.4 (11.6-14.8) % Plt Count 439 H (150-400) X10^3/uL Neut % (Auto) 72.3 (50-75) % Lymph % (Auto) 19.5 L (25-40) % [place] % (Auto) 5.3 (3-14) % Eos % (Auto) 2.1 (2-4) % Baso % (Auto) 0.8 (0-2) % Neut # (Auto) 5900 (6104-5435) /uL Lymph # (Auto) 1600 (6857-7374) /uL [place] # (Auto) 400 (0-900) /uL Eos # (Auto) 200 (0-450) /uL Baso # (Auto) 100 (0-100) /uL Sodium 139 (137-145) mmol/L Potassium 3.6 (3.4-5.1) mmol/L Chloride 98 (98-107) mmol/L Carbon Dioxide 32 (22-32) mmol/L BUN 16 (7-17) mg/dL Creatinine 0.93 (0.52-1.04) mg/dL Estimated GFR > 60 (>60) mL/min BUN/Creatinine Ratio 17.2 (6-22) Glucose 113 H (70-100) mg/dL Calcium 8.8 (8.4-10.2) mg/dL Total Bilirubin 0.4 (0.2-1.3) mg/dL AST 23 (14-36) IU/L ALT 16 (<35) IU/L Alkaline Phosphatase 76 (38-126) U/L Total Protein 7.8 (6.3-8.2) g/dL Albumin 4.3 (3.5-5.0) g/dL Globulin 3.5 (1.7-4.1) g/dL Albumin/Globulin Ratio 1.2 (1.0-2.8) TSH 2.18 (0.47-4.68) uIU/mL Free T4 1.25 (0.78-2.19) ng/dL Urine Color Urine Appearance Urine pH (4.5-8.0) Ur Specific [place] (1.000-1.035) Urine Protein (Negative) Urine Glucose (UA) (Negative) g/dL Urine Ketones (NEGATIVE) Urine Occult Blood (Negative) Urine Nitrate (Negative) Urine Bilirubin (NEGATIVE) Urine Urobilinogen (0.2) E.U./dL Ur Leukocyte Esterase (NEGATIVE) Urine RBC (0-5/HPF) Urine WBC (0-5/HPF) Ur Squamous Epith Cells (0-5/HPF) Amorphous Sediment Urine Bacteria (None) Ur Culture Indicated? Urine Test (Negative) Salicylates < 1.0 (<20) mg/dL U Opiates 300ng/mL cut (Negative) Ur Oxycodone Screen (Negative) Urine Methadone Screen (Negative) Acetaminophen < 10 (10-30) ug/mL Ur Barbiturates Screen (Negative) U Tricyclic Antidepress (Negative) Ur Phencyclidine Scrn (Negative) Ur Amphetamines Screen (Negative) U Methamphetamines Scrn (Negative) Ur MDMA Scrn (Ecstasy) (Negative) U Benzodiazepines Scrn (Negative) Urine Cocaine Screen (Negative) U Marijuana (THC) Screen (Negative) Ethyl Alcohol < 10 ( - 10) mg/dL SARS-CoV-2 (PCR) (Negative) 01/17/22 01/17/22 01/17/22 Range/Units 07:47 07:47 07:47 WBC (4.5-11.0) X10^3/uL RBC (4.0-5.2) X10^6/uL Hgb (12.0-16.0) g/dL Hct (36-46) % MCV (80-100) fL MCH (26-34) PG MCHC (30-36) % RDW (11.6-14.8) % Plt Count (150-400) X10^3/uL Neut % (Auto) (50-75) % Lymph % (Auto) (25-40) % [place] % (Auto) (3-14) % Eos % (Auto) (2-4) % Baso % (Auto) (0-2) % Neut # (Auto) (4627-9295) /uL Lymph # (Auto) (7384-5781) /uL [place] # (Auto) (0-900) /uL Eos # (Auto) (0-450) /uL Baso # (Auto) (0-100) /uL Sodium (137-145) mmol/L Potassium (3.4-5.1) mmol/L Chloride (98-107) mmol/L Carbon Dioxide (22-32) mmol/L BUN (7-17) mg/dL Creatinine (0.52-1.04) mg/dL Estimated GFR (>60) mL/min BUN/Creatinine Ratio (6-22) Glucose (70-100) mg/dL Calcium (8.4-10.2) mg/dL Total Bilirubin (0.2-1.3) mg/dL AST (14-36) IU/L ALT (<35) IU/L Alkaline Phosphatase (38-126) U/L Total Protein (6.3-8.2) g/dL Albumin (3.5-5.0) g/dL Globulin (1.7-4.1) g/dL Albumin/Globulin Ratio (1.0-2.8) TSH (0.47-4.68) uIU/mL Free T4 (0.78-2.19) ng/dL Urine Color Yellow Urine Appearance Sl cloudy Urine pH 7.0 (4.5-8.0) Ur Specific [place] 1.010 (1.000-1.035) Urine Protein Trace H (Negative) Urine Glucose (UA) Negative (Negative) g/dL Urine Ketones Negative (NEGATIVE) Urine Occult Blood Negative (Negative) Urine Nitrate Negative (Negative) Urine Bilirubin Negative (NEGATIVE) Urine Urobilinogen 0.2 (0.2) E.U./dL Ur Leukocyte Esterase Negative (NEGATIVE) Urine RBC None seen (0-5/HPF) Urine WBC 0-1/hpf (0-5/HPF) Ur Squamous Epith Cells 0-1 /hpf (0-5/HPF) Amorphous Sediment 2+ Urine Bacteria None seen (None) Ur Culture Indicated? Cult not indicated Urine Test Negative (Negative) Salicylates (<20) mg/dL U Opiates 300ng/mL cut Negative (Negative) Ur Oxycodone Screen Negative (Negative) Urine Methadone Screen Negative (Negative) Acetaminophen (10-30) ug/mL Ur Barbiturates Screen Negative (Negative) U Tricyclic Antidepress Negative (Negative) Ur Phencyclidine Scrn Negative (Negative) Ur Amphetamines Screen Positive H (Negative) U Methamphetamines Scrn Positive H (Negative) Ur MDMA Scrn (Ecstasy) Negative (Negative) U Benzodiazepines Scrn Positive H (Negative) Urine Cocaine Screen Negative (Negative) U Marijuana (THC) Screen Negative (Negative) Ethyl Alcohol ( - 10) mg/dL SARS-CoV-2 (PCR) (Negative) 01/17/22 Range/Units 08:00 WBC (4.5-11.0) X10^3/uL RBC (4.0-5.2) X10^6/uL Hgb (12.0-16.0) g/dL Hct (36-46) % MCV (80-100) fL MCH (26-34) PG MCHC (30-36) % RDW (11.6-14.8) % Plt Count (150-400) X10^3/uL Neut % (Auto) (50-75) % Lymph % (Auto) (25-40) % [place] % (Auto) (3-14) % Eos % (Auto) (2-4) % Baso % (Auto) (0-2) % Neut # (Auto) (6509-6806) /uL Lymph # (Auto) (6708-0801) /uL [place] # (Auto) (0-900) /uL Eos # (Auto) (0-450) /uL Baso # (Auto) (0-100) /uL Sodium (137-145) mmol/L Potassium (3.4-5.1) mmol/L Chloride (98-107) mmol/L Carbon Dioxide (22-32) mmol/L BUN (7-17) mg/dL Creatinine (0.52-1.04) mg/dL Estimated GFR (>60) mL/min BUN/Creatinine Ratio (6-22) Glucose (70-100) mg/dL Calcium (8.4-10.2) mg/dL Total Bilirubin (0.2-1.3) mg/dL AST (14-36) IU/L ALT (<35) IU/L Alkaline Phosphatase (38-126) U/L Total Protein (6.3-8.2) g/dL Albumin (3.5-5.0) g/dL Globulin (1.7-4.1) g/dL Albumin/Globulin Ratio (1.0-2.8) TSH (0.47-4.68) uIU/mL Free T4 (0.78-2.19) ng/dL Urine Color Urine Appearance Urine pH (4.5-8.0) Ur Specific [place] (1.000-1.035) Urine Protein (Negative) Urine Glucose (UA) (Negative) g/dL Urine Ketones (NEGATIVE) Urine Occult Blood (Negative) Urine Nitrate (Negative) Urine Bilirubin (NEGATIVE) Urine Urobilinogen (0.2) E.U./dL Ur Leukocyte Esterase (NEGATIVE) Urine RBC (0-5/HPF) Urine WBC (0-5/HPF) Ur Squamous Epith Cells (0-5/HPF) Amorphous Sediment Urine Bacteria (None) Ur Culture Indicated? Urine Test (Negative) Salicylates (<20) mg/dL U Opiates 300ng/mL cut (Negative) Ur Oxycodone Screen (Negative) Urine Methadone Screen (Negative) Acetaminophen (10-30) ug/mL Ur Barbiturates Screen (Negative) U Tricyclic Antidepress (Negative) Ur Phencyclidine Scrn (Negative) Ur Amphetamines Screen (Negative) U Methamphetamines Scrn (Negative) Ur MDMA Scrn (Ecstasy) (Negative) U Benzodiazepines Scrn (Negative) Urine Cocaine Screen (Negative) U Marijuana (THC) Screen (Negative) Ethyl Alcohol ( - 10) mg/dL SARS-CoV-2 (PCR) Negative (Negative) MDM Narrative Medical decision making narrative: Patient has left in the emergency department all night is back to her baseline mental status. It was found through social work that where she is staying instruct her to come to the emergency department rather than call the pact team. There will be your has been educated augustine about that so that she can use the resources that are available to her. At this time there is no need or indication for her to be hospitalized. Please contact PACT team [phone] Discharge Plan Departure Patient Disposition: Home Clinical Impression: Chronic schizophrenia Instructions: DI for Schizoaffective Disorder Activity Restrictions/Additional Instructions: *You have been diagnosed with chronic schizophrenia *What to do: Please contact PACT team [phone] for any questions or concerns before coming to the emergency department. It is important that they see you regularly in order to ensure your getting her medications so that you feel better *Continue to take medications as directed *Follow up with your primary care provider in 2-3 days or call [phone] *Return to ER if you should have any new, worsening or concerning symptoms Prescriptions: No Action Unobtainable Referrals: Ele Rodgers MD [Primary Care Provider] - Visit Report Forms: Patient Portal/API
[2022-01-16 18:44] LABS: Free T4, Direct Thyroxine 1.25 ng/dL (0.78-2.19)
[2022-01-16 18:58] LABS: Thyroid Stimulating Hormone 2.18 uIU/mL (0.47-4.68)
--- NOTE | 2022-01-17 06:24 | PC.NURSE ---
received pt, resting on stretcher with eyes closed resp even and unlabored
--- NOTE | 2022-01-17 07:48 | PC.NURSE ---
0748: pt resting on stretcher, RT in room for EKG. Pt OOB to bathroom and urine sample obtained. NAD. Vitals taken on pt without issue. breakfast tray ordered. pt awaiting medical clearance.
[2022-01-17 07:56] VITALS: BP 132/74; PULSE 80; RESP 16; TEMP 36.6; O2SAT 97
[2022-01-17 08:02] LABS: Appearance Urine UA SL CLOUDY; Bilirubin Urine UA NEGATIVE (NEGATIVE); Color Urine UA YELLOW; Glucose Urine UA NEGATIVE (Negative); Ketones Urine UA NEGATIVE (NEGATIVE); Leukocyte Esterase Urine UA NEGATIVE (NEGATIVE); Nitrite Urine UA NEGATIVE (Negative); Occult Blood Urine UA NEGATIVE (Negative); Protein Urine UA TRACE (Negative); Urobilinogen Urine UA 0.2 E.U./dL (0.2)
[2022-01-17 08:12] LABS: Pregnancy Test Urine Negative (Negative); UR Morphine/Opiate cutoff 300 Negative (Negative); Ur Creatinine Normal (Normal); Ur Specific Gravity Normal (Normal); Urine Amphetamines Positive (Negative); Urine Barbiturates Negative (Negative); Urine Benzodiazepines Positive (Negative); Urine Cocaine Negative (Negative); Urine MDMA Negative (Negative); Urine Methadone Negative (Negative); Urine Methamphetamines Positive (Negative); Urine Oxycodone Negative (Negative); Urine Phencyclidine Negative (Negative); Urine Tetrahydrocannabinol Negative (Negative); Urine Tricyclic Antidepressant Negative (Negative); Urine pH Normal (Normal)
[2022-01-17 08:17] LABS: COVID19 -Nasal RAPID Negative (Negative)
[2022-01-17 08:19] LABS: RBC Urine None Seen (0-5/HPF)
[2022-01-17 08:20] LABS: Amorphous Sediment Urine 2+; Bacteria Urine None Seen; Culture Indicated Urine Cult Not Indicated; Squamous Epithelial Cell Urine 0-1 /HPF (0-5/HPF); WBC Urine 0-1/HPF (0-5/HPF)
== END 2022-01-17 09:01 | disposition home or self-care (01) ==
PROVIDERS: Emergency Medicine; Emergency Provider Emergency Medicine; Family Provider Family Medicine; PCP Family Medicine
DX: F20.9 Schizophrenia, unspecified (principal); R07.9 Chest pain, unspecified; Z20.822 Contact with and (suspected) exposure to COVID-19; F22 Delusional disorders; Z53.29 Procedure and treatment not carried out because of patient's decision for other reasons
CPT/HCPCS: 36415; 80053; 80305; 80320; 80329; 81001; 81025; 84439; 84443; 85025; 87635; 93005; 96372; 99283; 99284; C9803; G0480; J1630

== ENCOUNTER 2022-01-25 17:31 | Emergency (ER) | payer OTHER, MEDICAID, SELFPAY ==
[2022-01-25 17:41] VITALS: BP 180/100; PULSE 102; RESP 18; TEMP 36.9; O2SAT 97
--- NOTE | 2022-01-25 17:47 | CM.SWNOTE ---
DOPE POURER Note DOPE POURER enters triage room with mechanical piping designer to meet with patient. Patient presents to ED via foot due to concern for someone chasing me. Patient presents as coherent and lucid. Patient presents as A/Ox3. Patient presents with some paranoia but presents as calm, communicative and cooperative. Patient states she just discharged from [facility] psychiatric inpatient unit today after a 4 day stay. Patient states she took her daily rx as prescribed and states that the PACT team will meet with patient tomorrow at 2:30pm. Patient requests that DOPE POURER not call PACT team. Patient endorses she feels a little better since being at the ED. Patient endorses that she questioned whether or not she should come to this ED or not since she just discharged today from [facility]. Patient endorses she presented to the ED hoping to get medication. Patient endorses she has a room at the [facility] this evening. Patient endorses she feels safe leaving the ED and does not need to check in further. Earlier in the day, [facility]ometric[facility] Consultant Jose Alfredo Esqueda reports that patient d/c'd from [facility] psych unit today and patient has PACT team f/u with plan of fdc placement. DOPE POURER leaves with Jose Alfredo Esqueda. It is the opinion of this DOPE POURER that patient is safe to d/c to community, DOPE POURER reviews this with mechanical piping designer and ED provider who indicate agreement and understanding. Plan: Patient chose to d/c to community from triage. Patient endorses she has PACT team f/u and medication check up tomorrow at 2:30 pm. JENNY Rogers
--- NOTE | 2022-01-25 20:01 | PC.NURSE ---
Pt coming in and out of ED waiting room to outside. Each time says that she is ok and wants to be able to leave. At this time pt has left and come back 5 times. Each time appears in no distress.
== END 2022-01-25 20:23 | disposition left against medical advice (07) ==
PROVIDERS: Emergency Provider Emergency Medicine; Family Provider Family Medicine; PCP Family Medicine
DX: F99 Mental disorder, not otherwise specified (principal); Z53.21 Procedure and treatment not carried out due to patient leaving prior to being seen by health care provider
CPT/HCPCS: 99281

== ENCOUNTER 2022-01-25 20:57 | Emergency (ER) | payer OTHER, MEDICAID, SELFPAY ==
--- NOTE | 2022-01-25 22:28 | PC.NURSE ---
Pt leaves waiting room, was not in waiting room at 2114, was not in waiting room at 2149, was not in waiting room at 2224.
[2022-01-26 04:27] VITALS: BP 177/103; PULSE 95; RESP 20; O2SAT 99
--- NOTE | 2022-01-26 04:41 | ED.RECABL ---
HPI - Recheck/Abnormal Lab/Rx General Chief Complaint: Recheck/Abnormal Lab/Rx Stated Complaint: Scared Time Seen by Provider: 01/26/22 04:36 Source: patient Mode of arrival: Ambulatory History of Present Illness HPI narrative: This is a 42-year-old female who presents for paranoia. She is currently with the PACT team and has short-term housing at a local hotel. She was hospitalized at an inpatient unit for the past week. Patient states she is feeling scared and paranoid. She had been in and out of the emergency exit several times and ultimately decided to be seen. Patient was asking for medication she prefers IM Haldol but after discussion she is worried it will make her too sedated for her to safely returned to the hotel. Patient states that she does not really like the medication that she was being given her inpatient facility she prefers the IM Haldol and finds it more helpful. Related Data Home Medications Medication Instructions Recorded Confirmed Unobtainable 09/29/20 09/29/20 Allergies Allergy/AdvReac Type Severity Reaction Status Date / Time No Known Drug Allergies Allergy Verified 01/12/22 21:35 Review of Systems Review of Systems ROS Unobtainable: All systems reviewed & are unremarkable except as noted in HPI and below Patient History Medical History Drug abuse Schizophrenia Social History Smoking Status: Current every day smoker Smoking Status: Current every day smoker tobacco type: cigarettes alcohol intake frequency: other Substance Use Type: methamphetamine and unknown Exam Narrative Exam Narrative: GENERAL: Alert and oriented, patient is calm, with a groomed appearance which is atypical from normal. HEENT: Head normocephalic, atraumatic, EOMI, pupils reactive, face symmetric, moist mucous membranes NECK: Supple, full range of motion CARDIOVASCULAR: Regular rate and rhythm without murmurs, rubs or gallops. RESPIRATORY: Breath sounds equal bilaterally, no wheezes rales or rhonchi. ABDOMEN: Soft, nontender. Normoactive bowel sounds all 4 quadrants. No guarding or rebound, rigidity, no mass : No CVA tenderness EXTREMITIES: Normal range of motion, no clubbing or edema. Neurovascularly intact NEUROLOGICAL: Cranial nerves II through XII grossly intact. Moving all extremities SKIN: Warm, dry, no petechiae, no rashes or lesions. PSYCH: Positive for suicidal homicidal ideation, patient is having paranoid thoughts. Calm speech, clear thought pattern. Initial Vital Signs Initial Vital Signs: Vital Signs Pulse Rate 95 H 01/26/22 04:27 Respiratory Rate 20 01/26/22 04:27 Blood Pressure 177/103 H 01/26/22 04:27 Pulse Oximetry 99 01/26/22 04:27 Oxygen Delivery Method 01/26/22 04:27 Course Vital Signs Vital signs: Vital Signs - 8 hr 01/26/22 04:27 Pulse Rate 95 H Respiratory Rate 20 Blood Pressure 177/103 H Pulse Oximetry 99 Oxygen Delivery Method Room Air MDM - Recheck/Abnormal Lab/Rx MDM Narrative Medical decision making narrative: This is a 42-year-old female with chronic schizophrenia and substance abuse history. Patient was recently hospitalized inpatient she presented this evening for paranoid thoughts and feeling that someone was going to harm her. She had requested IM Haldol but after weight would prefer to return back to the hotel that she is currently staying at secondary to the PACT team. Discussed with patient about staying and receiving a dose here and meeting with our child protective services social worker. She prefers not to at this time. Patient is as lucid as I have seen her before and I do not feel that I can hold her against her will at this time. She does have a plan to meet with her team today 2:30 p.m. at the hot that they have her staying at. Discharge Plan Departure Patient Disposition: Home Clinical Impression: Paranoia Activity Restrictions/Additional Instructions: You are welcome to return at any time. Please meet up with your PACT team today at 2:30pm. If you're feeling suicidal or having suicidal thoughts, contact the suicide hotline: . Prescriptions: No Action Unobtainable Referrals: Ele Rodgers MD [Primary Care Provider] - Visit Report Forms: Patient Portal/API
== END 2022-01-26 04:49 | disposition home or self-care (01) ==
PROVIDERS: Emergency Provider Emergency Medicine; Family Provider Family Medicine; PCP Family Medicine
DX: F22 Delusional disorders (principal)
CPT/HCPCS: 99281

== ENCOUNTER 2022-01-26 19:54 | Emergency (ER) | payer OTHER, MEDICAID, SELFPAY ==
[2022-01-26 20:01] VITALS: BP 199/117; PULSE 107; RESP 16; TEMP 37; O2SAT 98; BMI 26.6
--- NOTE | 2022-01-26 20:13 | ED.PSYCH ---
HPI - Psych General Chief Complaint: Psychiatric Symptoms Stated Complaint: Scared Time Seen by Provider: 01/26/22 19:57 History of Present Illness HPI Narrative: 42-year-old female known well to facility with frequent visits for schizophrenia, medical noncompliance, and methamphetamine use presents with a chief complaint that she feels like somebody might be chasing her. She denies suicidal or homicidal ideation. She denies any headache or blurred vision. She denies chest pain or shortness of breath nor nausea, vomiting or diarrhea. She states that she is been trying to take her medications and things seemed to be going better now that she is staying at a hotel and that medication delivery service knows where to find her. She is hoping to get a dose of the medication that we normally give her to help quiet these voices. Related Data Home Medications Medication Instructions Recorded Confirmed Unobtainable 09/29/20 09/29/20 Allergies Allergy/AdvReac Type Severity Reaction Status Date / Time No Known Drug Allergies Allergy Verified 01/12/22 21:35 Review of Systems Review of Systems Narrative: GENERAL: See HPI HEENT: Denies sinus pain, ear pain, sore throat, difficulty swallowing, dizziness. RESPIRATORY: Denies dyspnea, cough, wheezing, hemoptysis, sputum. CARDIOVASCULAR: Denies chest pain, palpitations, orthopnea, edema, GASTROINTESTINAL: Denies nausea, vomiting, abdominal pain, diarrhea, constipation, melena. : Denies dysuria, frequency, incontinence, hematuria, urinary retention. MUSCULOSKELETAL: denies weakness, joint pain, or bony pain SKIN: Denies rash, skin lesions, or other NEUROLOGIC: Denies weakness, headache, numbness, change in speech, confusion, seizures, incoordination. PSYCHIATRIC: See HPI 12 point review of systems is negative except for those stated above Patient History Medical History Drug abuse Schizophrenia Social History Smoking Status: Current every day smoker Smoking Status: Current every day smoker tobacco type: cigarettes alcohol intake frequency: other Substance Use Type: methamphetamine and unknown Exam Narrative Exam Narrative: GENERAL: [42] year old patient appears stated age. Well-developed patient, in mild distress. Awake, alert and oriented HEAD: Atraumatic. Normocephalic. EYES: Pupils equal round and reactive. Extraocular motions intact. No scleral icterus. No injection or drainage. ENT: Nose without bleeding, purulent drainage. Throat without erythema, tonsillar hypertrophy or exudate. Airway patent. NECK: Trachea midline. Non tender CARDIOVASCULAR: Regular rate and rhythm without murmurs, gallops, or rubs. RESPIRATORY: Clear to auscultation. Breath sounds equal bilaterally. No wheezes, rales, or rhonchi. GASTROINTESTINAL: Abdomen soft, non-tender, nondistended. EXTREMITIES: No edema or joint tenderness. BACK: Nontender without deformity or crepitance. No flank tenderness. NEURO: AOx3. SKIN: No rash or erythema of visible areas Initial Vital Signs Initial Vital Signs: Vital Signs Temperature 98.6 F 01/26/22 20:01 Pulse Rate 107 H 01/26/22 20:01 Respiratory Rate 16 01/26/22 20:01 Blood Pressure 199/117 H 01/26/22 20:01 Pulse Oximetry 98 01/26/22 20:01 Oxygen Delivery Method 01/26/22 20:01 Course Orders Ordered: Discontinued Medications Olanzapine (Olanzapine Odt 10 Mg Tab) 10 mg PO NOW ONE Stop: 01/26/22 20:14 Last Admin: 01/26/22 20:19 Dose: 10 mg Documented By: SB Vital Signs Vital signs: Vital Signs - 8 hr 01/26/22 20:01 01/26/22 21:35 Temperature 98.6 F Pulse Rate 107 H 112 H Respiratory Rate 16 18 Blood Pressure 199/117 H 193/119 H Pulse Oximetry 98 99 Oxygen Delivery Method Room Air Room Air MDM - Psych MDM Narrative Medical decision making narrative: 42-year-old known well with frequent visits under similar circumstances has no suicidal or homicidal ideation. She is as awake, alert and aware is any of us have seen her. She has capacity and insight. She is polite and speaking clearly, walking a straight line. There is no indication for further workup or intervention. Return precautions discussed and questions answered to her apparent satisfaction Discharge Plan Departure Patient Disposition: Home Clinical Impression: Chronic schizophrenia Instructions: DI for Schizophrenia Activity Restrictions/Additional Instructions: There is no evidence of an emergent or life threatening illness at this time, but follow up with your doctor in 1-2 days is recommended nonetheless to continue to rule out serious underlying causes of your symptoms. Please call the office for an appointment. Please return to the Emergency Department for any worsening or persistent symptoms. Please take medications as directed. Prescriptions: No Action Unobtainable Referrals: Ele Rodgers MD [Primary Care Provider] - Visit Report Forms: Patient Portal/API
[2022-01-26] MEDS: OLANZapine ODT 10 MG TAB PO (20:19)
--- NOTE | 2022-01-26 20:30 | PC.NURSE ---
Asking if she can sit at the nurses station stating that she is scared - explained that the RN is outside her room and she can see her - explained that she needs to stay in her room
--- NOTE | 2022-01-26 20:45 | PC.NURSE ---
wandering around room - put chair outside of room and asked if she can sit there - told that was ok if left directly at the door - verbalizes understanding
--- NOTE | 2022-01-26 21:00 | PC.NURSE ---
asking if she can have someone sit in the room with her - explained that there is no one available at this time - wanders around the room - warm blanket given for comfort
--- NOTE | 2022-01-26 21:15 | PC.NURSE ---
Asking again if she can have someone sit with her as she is scared - explained the RN is just outside the room and she can see her - verbalizes reassurance
--- NOTE | 2022-01-26 21:25 | PC.NURSE ---
Pt requesting to leave at this time - MD at bedside
[2022-01-26 21:35] VITALS: BP 193/119; PULSE 112; RESP 18; O2SAT 99
== END 2022-01-26 21:45 | disposition home or self-care (01) ==
PROVIDERS: Emergency Provider Emergency Medicine; Family Provider Family Medicine; PCP Family Medicine
DX: F20.9 Schizophrenia, unspecified (principal)
CPT/HCPCS: 99283

== ENCOUNTER 2022-01-27 01:52 | Emergency (ER) | payer OTHER, MEDICAID, SELFPAY ==
[2022-01-27 01:55] VITALS: BP 180/110; PULSE 111; RESP 18; TEMP 37.1; O2SAT 98
--- NOTE | 2022-01-27 01:59 | ED_ITS ---
HPI - General Adult General Chief complaint: Recheck/Abnormal Lab/Rx Stated complaint: scared Time Seen by Provider: 01/27/22 01:59 PST History of Present Illness HPI narrative: 42-year-old female known well to facility with frequent visits for schizophrenia, medical noncompliance, and methamphetamine use returns for the 2nd time tonight stating that she is hoping to get another dose of that medication. She states that she denies suicidal or homicidal ideation but she still feels like somebody might be following her. She denies any headache or blurred vision or any chest pain, shortness of breath. She has no abdominal pain, nausea, vomiting or diarrhea. Related Data Home Medications Medication Instructions Recorded Confirmed Unobtainable 09/29/20 09/29/20 Allergies Allergy/AdvReac Type Severity Reaction Status Date / Time No Known Drug Allergies Allergy Verified 01/12/22 21:35 Review of Systems Review of Systems Narrative: GENERAL: Denies chills, fatigue, malaise, fever, sweats. HEENT: Denies sinus pain, ear pain, sore throat, difficulty swallowing, dizziness. RESPIRATORY: Denies dyspnea, cough, wheezing, hemoptysis, sputum. CARDIOVASCULAR: Denies chest pain, palpitations, orthopnea, edema, GASTROINTESTINAL: Denies nausea, vomiting, abdominal pain, diarrhea, cons tipation, melena. : Denies dysuria, frequency, incontinence, hematuria, urinary retention. MUSCULOSKELETAL: denies weakness, joint pain, or bony pain SKIN: Denies rash, skin lesions, or other NEUROLOGIC: Denies weakness, headache, numbness, change in speech, confusion, seizures, incoordination. PSYCHIATRIC: See HPI 12 point review of systems is negative except for those stated above Patient History Medical History Drug abuse Schizophrenia Social History Smoking Status: Current every day smoker Smoking Status: Current every day smoker tobacco type: cigarettes alcohol intake frequency: other Substance Use Type: methamphetamine and unknown Exam Narrative Exam Narrative: GEN: AOx3 and in no obvious distress. EYES: Pupils are equal, round, and reactive to light and accommodation. Extraoccular muscles are intact bilaterally. There is no subconjunctival hemorrhage or exudate. CHEST: Lungs are clear to auscultation bilaterally and free of wheezes, rales, or rhonchi. Heart rate is regular rhythm, there are no murmurs, clicks, rubs, or gallops. There is no chest wall tenderness. ABD: Abdomen is soft and nontender. There is no guarding or rebound. Bowel sounds are normal in all 4 quadrants. There is no mass or organomegaly. EXT: Full painless ROM of all extremities with no loss of sensation or strength. SKIN: Warm, pink, and dry. No erythema or rash Initial Vital Signs Initial Vital Signs: Vital Signs Temperature 98.7 F 01/27/22 01:55 PST Pulse Rate 111 H 01/27/22 01:55 PST Respiratory Rate 18 01/27/22 01:55 PST Blood Pressure 180/110 H 01/27/22 01:55 PST Pulse Oximetry 98 01/27/22 01:55 PST Oxygen Delivery Method 01/27/22 01:55 PST Course Vital Signs Vital signs: Vital Signs - 8 hr 01/27/22 01:55 PST Temperature 98.7 F Pulse Rate 111 H Respiratory Rate 18 Blood Pressure 180/110 H Pulse Oximetry 98 Oxygen Delivery Method Room Air Medical Decision Making MDM Narrative Medical decision making narrative: Patient well known to myself and other staff. She looks quite well and this is perhaps the best that we have seen her look in quite some time. She is alert and oriented with capacity and clear speech. She walks a straight line. She is not suicidal or homicidal. She is been given a medical screening exam and there is no evidence of immediate life or limb threatening diagnosis that would require a specific treatment. She is given return precautions and questions hav e been answered to her apparent satisfaction Discharge Plan Departure Patient Disposition: Home Clinical Impression: Chronic schizophrenia Instructions: DI for Schizophrenia Activity Restrictions/Additional Instructions: *You have been diagnosed with [chronic schizophrenia. As we discussed you have been given a medical screening exam and based on your history and physical exam there is no indication of a life-threatening diagnosis that requires immediate treatment.] *What to do: *Please continue to take your regular medications as directed. *Please follow up with your primary care provider in 2-3 days, call for an appointment. Let them know you were seen in the Emergency Department and that we ask that you be seen in follow up. We will electronically transmit a record of today's note if your PCP is in our system *Return to Emergency Department if you should have any new, worsening or concerning symptoms, such as [fever greater than 101 F, shaking chills, worsening pain, persistent vomiting or other bothersome symptoms] Prescriptions: No Action Unobtainable Referrals: Ele Rodgers MD [Primary Care Provider] - Visit Report Forms: Patient Portal/API
== END 2022-01-27 02:04 | disposition home or self-care (01) ==
LOC: ED 02:13
PROVIDERS: Emergency Provider Emergency Medicine; Family Provider Family Medicine; PCP Family Medicine
DX: F20.9 Schizophrenia, unspecified (principal)
CPT/HCPCS: 99281

== ENCOUNTER 2022-01-27 19:50 | Emergency (ER) | payer OTHER, MEDICAID, SELFPAY ==
[2022-01-27 20:01] VITALS: BP 182/102; PULSE 110; RESP 28; O2SAT 99
--- NOTE | 2022-01-27 20:02 | ED.PSYCH ---
HPI - Psych General Chief Complaint: Psychiatric Symptoms Stated Complaint: pysch issues Time Seen by Provider: 01/27/22 19:55 History of Present Illness HPI Narrative: 42-year-old female known well to facility with frequent visits for schizophrenia, medical noncompliance, and methamphetamine use presents with [employer] police as [place] apparently [place] the [place]. She is been seen multiple times in the past 24 hours and states that she really does not necessarily want to be here. Her biggest concern is that she continues to be afraid somebody might be chasing her. She has been staying at a local hotel and is established with the PACT team and verifies that she did in fact take her medications today and is scheduled to see them again tomorrow. She denies suicidal or homicidal ideation she has no chest pain or shortness of breath and has no nausea, vomiting or diarrhea. She states that she is afraid somebody was chasing her and she fears for her safety. Related Data Home Medications Medication Instructions Recorded Confirmed Unobtainable 09/29/20 09/29/20 Allergies Allergy/AdvReac Type Severity Reaction Status Date / Time No Known Drug Allergies Allergy Verified 01/12/22 21:35 Review of Systems Review of Systems Narrative: GENERAL: Denies chills, fatigue, malaise, fever, sweats. HEENT: Denies sinus pain, ear pain, sore throat, difficulty swallowing, dizziness. RESPIRATORY: Denies dyspnea, cough, wheezing, hemoptysis, sputum. CARDIOVASCULAR: Denies chest pain, palpitations, orthopnea, edema, GASTROINTESTINAL: Denies nausea, vomiting, abdominal pain, diarrhea, constipation, melena. : Denies dysuria, frequency, incontinence, hematuria, urinary retention. MUSCULOSKELETAL: denies weakness, joint pain, or bony pain SKIN: Denies rash, skin lesions, or other NEUROLOGIC: Denies weakness, headache, numbness, change in speech, confusion, seizures, incoordination. PSYCHIATRIC: See HPI 12 point review of systems is negative except for those stated above Patient History Medical History Drug abuse Schizophrenia Social History Smoking Status: Current every day smoker Smoking Status: Current every day smoker tobacco type: cigarettes alcohol intake frequency: other Substance Use Type: methamphetamine and unknown Exam Narrative Exam Narrative: GEN: 42 year old female, AOx3 and in mild distress, fearful and tearful but speaking clearly and walking a straight line without stumbling EYES: Pupils are equal, round, and reactive to light and accommodation. Extraoccular muscles are intact bilaterally. There is no subconjunctival hemorrhage or exudate. CHEST: Lungs are clear to auscultation bilaterally and free of wheezes, rales, or rhonchi. Heart rate is regular rhythm, there are no murmurs, clicks, rubs, or gallops. There is no chest wall tenderness. ABD: Abdomen is soft and nontender. There is no guarding or rebound. Bowel sounds are normal in all 4 quadrants. There is no mass or organomegaly. EXT: Full painless ROM of all extremities with no loss of sensation or strength. SKIN: Warm, pink, and dry. No erythema or rash Initial Vital Signs Initial Vital Signs: Vital Signs Pulse Rate 110 H 01/27/22 20:01 Respiratory Rate 28 H 01/27/22 20:01 Blood Pressure 182/102 H 01/27/22 20:01 Pulse Oximetry 99 01/27/22 20:01 Oxygen Delivery Method 01/27/22 20:01 Course Orders Ordered: Discontinued Medications Olanzapine (Olanzapine Odt 10 Mg Tab) 20 mg PO NOW ONE Stop: 01/27/22 20:02 Last Admin: 01/27/22 20:10 Dose: 20 mg Documented By: JORGE LUIS Vital Signs Vital signs: Vital Signs - 8 hr 01/27/22 20:01 Pulse Rate 110 H Respiratory Rate 28 H Blood Pressure 182/102 H Pulse Oximetry 99 Oxygen Delivery Method Room Air Discharge Plan Departure Patient Disposition: Home Clinical Impression: Chronic schizophrenia Instructions: DI for Schizophrenia Activity Restrictions/Additional Instructions: There is no evidence of an emergent or life threatening illness at this time, but follow up with your doctor in 1-2 days is recommended nonetheless to continue to rule out serious underlying causes of your symptoms. Please call the office for an appointment. Please return to the Emergency Department for any worsening or persistent symptoms. Please take medications as directed. Prescriptions: No Action Unobtainable Referrals: Ele Rodgers MD [Primary Care Provider] - Visit Report Forms: Patient Portal/API
[2022-01-27] MEDS: OLANZapine ODT 10 MG TAB 20 MG PO (20:10)
--- NOTE | 2022-01-27 20:28 | PC.NURSE ---
Patient presented to ED christine d/t concerns that she was being chased. Requesting medications to feel better. Provider present during triage and assessment. Patient given medications and stayed to assess tolerance to regular dosing of medications. Per provider, patient allowed to leave when she felt ready. Patient left from the ED on her own power without difficulty.
== END 2022-01-27 20:35 | disposition home or self-care (01) ==
PROVIDERS: Emergency Provider Emergency Medicine; Family Provider Family Medicine; PCP Family Medicine
DX: F20.9 Schizophrenia, unspecified (principal)
CPT/HCPCS: 99281; 99283

== ENCOUNTER 2022-01-28 16:14 | Emergency (ER) | payer OTHER, MEDICAID, SELFPAY ==
--- NOTE | 2022-01-28 16:32 | PC.NURSE ---
Patient presents to ER with Iliana from [facility]. Patient has been in her office all day, saw [place] [facility] team and got her meds. Iliana reports at about 1330 her anxiety escalated and she requested to come here. patient in and out of ER during first contact with patient Lets just go, there is just one bad one, not fair for him be there Patient walked back to room, then decided she wanted to leave. Iliana was going to walk patient back to hotel.
--- NOTE | 2022-01-28 16:58 | PC.NURSE ---
Pt w/ Nandini from her community team. Pt is agitated but denies SI/HI. Frequently yelling and pacing. States that people are trying to harm her. Unkempt, moving all extrem equally well. Easy work of breathing. Nandini from care team here. Spoke w/ DCR. Plan is to make pt involuntary as psychiatric symptoms have worsened and pt is gravely disabled, unable to function, perform ADLs and poorly redirectable. Pt yelling at other patients, wandering, needing security to stand by for pt, visitor and staff safety.
[2022-01-28] MEDS: LORazepam 2 MG/ML INJ IM (17:45)
[2022-01-28] MEDS: DROPERIDOL 5 MG/2 ML VIAL IM (17:45)
--- NOTE | 2022-01-28 18:29 | ED.PSYCH ---
HPI - Psych General Chief Complaint: Psychiatric Symptoms Stated Complaint: Scared Time Seen by Provider: 01/28/22 17:24 Mode of arrival: Ambulatory History of Present Illness HPI Narrative: Claire is a 42-year-old female well known to myself in this facility for schizophrenia, medical noncompliance, methamphetamine use presents today with increased paranoia. She is frequently afraid that people are getting her seems to be worse today than normal. She has had multiple ED visits this week. She was released from [facility] 3 days ago and has been to the ER every day since. She is followed by local pact team which according to notes has been giving her her medication. She is not suicidal or homicidal. She was released 01/25/2022. She has since checked into the emergency department 5 times. Related Data Home Medications Medication Instructions Recorded Confirmed Unobtainable 09/29/20 09/29/20 Allergies Allergy/AdvReac Type Severity Reaction Status Date / Time No Known Drug Allergies Allergy Verified 01/12/22 21:35 Review of Systems Review of Systems ROS Unobtainable: Unobtainable due to mental condition Patient History Medical History Drug abuse Schizophrenia Social History Smoking Status: Current every day smoker Smoking Status: Current every day smoker tobacco type: cigarettes alcohol intake frequency: other Substance Use Type: methamphetamine and unknown Exam Initial Vital Signs Initial Vital Signs: Vital Signs Pulse Rate 86 01/28/22 18:35 Respiratory Rate 12 01/28/22 18:35 Blood Pressure 177/112 H 01/28/22 18:35 Pulse Oximetry 99 01/28/22 18:35 Oxygen Delivery Method 01/28/22 18:35 Oxygen Flow Rate 0 01/28/22 18:35 Gen.: Disheveled HEENT: Face is symmetric pupils equal round reactive Lungs: No respiratory distress Cardiac: No cyanosis Extremities,: Moving all extremities no gross bony deformity Neurologic: No cranial nerve deficit moving extremities Psych Mental Status: other Speech and Movement: agitated Mood: paranoid and other Affect: irritable affect Thought Process: illogical Thought Content: hallucinations Judgment: poor Course Orders Ordered: Discontinued Medications Diphenhydramine HCl (Diphenhydramine 50 Mg/Ml Vial) 50 mg IM NOW ONE Stop: 01/28/22 18:14 Droperidol (Droperidol 5 Mg/2 Ml Vial) 2.5 mg IM NOW ONE Stop: 01/28/22 17:43 Last Admin: 01/28/22 17:58 Dose: Not Given Documented By: TEREZA Droperidol (Droperidol 5 Mg/2 Ml Vial) 5 mg IM NOW ONE Stop: 01/28/22 17:44 Last Admin: 01/28/22 17:45 Dose: 5 mg Documented By: TEREZA Haloperidol (Haloperidol 5 Mg/Ml Vial) 5 mg IM NOW ONE Stop: 01/28/22 17:36 Last Admin: 01/28/22 17:58 Dose: Not Given Documented By: TEREZA Lorazepam (Lorazepam 2 Mg/Ml Inj) 2 mg IV NOW ONE Stop: 01/28/22 17:40 Last Admin: 01/28/22 17:58 Dose: Not Given Documented By: TEREZA Lorazepam (Lorazepam 2 Mg/Ml Inj) 2 mg IM NOW ONE Stop: 01/28/22 17:41 Last Admin: 01/28/22 17:45 Dose: 2 mg Documented By: TEREZA Lorazepam (Lorazepam 2 Mg/Ml Inj) 1 mg IM NOW ONE Stop: 01/28/22 17:43 Last Admin: 01/28/22 17:58 Dose: Not Given Documented By: TEREZA Lorazepam (Lorazepam 0.5 Mg Tablet) 2 mg PO NOW ONE Stop: 01/29/22 06:15 Last Admin: 01/29/22 06:24 Dose: 2 mg Documented By: ALEXEY Olanzapine (Olanzapine Odt 10 Mg Tab) 10 mg PO NOW ONE Stop: 01/28/22 18:14 Last Admin: 01/29/22 05:44 Dose: 10 mg Documented By: ALEXEY Vital Signs Vital signs: Vital Signs - 8 hr 01/29/22 06:32 Pulse Rate 94 H Blood Pressure [Right Arm] 169/92 H Pulse Oximetry 98 Oxygen Delivery Method Room Air MDM - Psych Lab Data Result diagrams: 01/28/22 18:00 01/28/22 18:00 Labs: Lab Results 01/28/22 01/28/22 01/28/22 Range/Units 18:00 18:00 18:00 WBC 10.9 (4.5-11.0) X10^3/uL RBC 4.15 (4.0-5.2) X10^6/uL Hgb 11.6 L (12.0-16.0) g/dL Hct 34.3 L (36-46) % MCV 82.6 (80-100) fL MCH 27.9 (26-34) PG MCHC 33.8 (30-36) % RDW 14.8 (11.6-14.8) % Plt Count 431 H (150-400) X10^3/uL Neut % (Auto) 72.2 (50-75) % Lymph % (Auto) 17.1 L (25-40) % [place] % (Auto) 8.8 (3-14) % Eos % (Auto) 1.1 L (2-4) % Baso % (Auto) 0.8 (0-2) % Neut # (Auto) 7900 H (7781-5814) /uL Lymph # (Auto) 1900 (9053-3259) /uL [place] # (Auto) 1000 H (0-900) /uL Eos # (Auto) 100 (0-450) /uL Baso # (Auto) 100 (0-100) /uL Sodium 136 L (137-145) mmol/L Potassium 3.5 (3.4-5.1) mmol/L Chloride 97 L (98-107) mmol/L Carbon Dioxide 26 (22-32) mmol/L BUN 16 (7-17) mg/dL Creatinine 0.85 (0.52-1.04) mg/dL Estimated GFR > 60 (>60) mL/min BUN/Creatinine Ratio 18.8 (6-22) Glucose 149 H (70-100) mg/dL Calcium 8.7 (8.4-10.2) mg/dL Total Bilirubin 0.4 (0.2-1.3) mg/dL AST 24 (14-36) IU/L ALT 16 (<35) IU/L Alkaline Phosphatase 75 (38-126) U/L Total Protein 7.9 (6.3-8.2) g/dL Albumin 4.5 (3.5-5.0) g/dL Globulin 3.4 (1.7-4.1) g/dL Albumin/Globulin Ratio 1.3 (1.0-2.8) TSH 3.43 D (0.47-4.68) uIU/mL Free T4 1.15 (0.78-2.19) ng/dL Urine Color Urine Appearance Urine pH (4.5-8.0) Ur Specific [place] (1.000-1.035) Urine Protein (Negative) Urine Glucose (UA) (Negative) g/dL Urine Ketones (NEGATIVE) Urine Occult Blood (Negative) Urine Nitrate (Negative) Urine Bilirubin (NEGATIVE) Urine Urobilinogen (0.2) E.U./dL Ur Leukocyte Esterase (NEGATIVE) Urine RBC (0-5/HPF) Urine WBC (0-5/HPF) Ur Squamous Epith Cells (0-5/HPF) Urine Bacteria (None) Ur Culture Indicated? Urine Test (Negative) Salicylates < 1.0 (<20) mg/dL U Opiates 300ng/mL cut (Negative) Ur Oxycodone Screen (Negative) Urine Methadone Screen (Negative) Acetaminophen < 10 (10-30) ug/mL Ur Barbiturates Screen (Negative) U Tricyclic Antidepress (Negative) Ur Phencyclidine Scrn (Negative) Ur Amphetamines Screen (Negative) U Methamphetamines Scrn (Negative) Ur MDMA Scrn (Ecstasy) (Negative) U Benzodiazepines Scrn (Negative) Urine Cocaine Screen (Negative) U Marijuana (THC) Screen (Negative) Ethyl Alcohol < 10 ( - 10) mg/dL SARS-CoV-2 (PCR) (Negative) 01/28/22 01/29/22 01/29/22 Range/Units 18:20 04:55 04:55 WBC (4.5-11.0) X10^3/uL RBC (4.0-5.2) X10^6/uL Hgb (12.0-16.0) g/dL Hct (36-46) % MCV (80-100) fL MCH (26-34) PG MCHC (30-36) % RDW (11.6-14.8) % Plt Count (150-400) X10^3/uL Neut % (Auto) (50-75) % Lymph % (Auto) (25-40) % [place] % (Auto) (3-14) % Eos % (Auto) (2-4) % Baso % (Auto) (0-2) % Neut # (Auto) (1742-9882) /uL Lymph # (Auto) (5723-5946) /uL [place] # (Auto) (0-900) /uL Eos # (Auto) (0-450) /uL Baso # (Auto) (0-100) /uL Sodium (137-145) mmol/L Potassium (3.4-5.1) mmol/L Chloride (98-107) mmol/L Carbon Dioxide (22-32) mmol/L BUN (7-17) mg/dL Creatinine (0.52-1.04) mg/dL Estimated GFR (>60) mL/min BUN/Creatinine Ratio (6-22) Glucose (70-100) mg/dL Calcium (8.4-10.2) mg/dL Total Bilirubin (0.2-1.3) mg/dL AST (14-36) IU/L ALT (<35) IU/L Alkaline Phosphatase (38-126) U/L Total Protein (6.3-8.2) g/dL Albumin (3.5-5.0) g/dL Globulin (1.7-4.1) g/dL Albumin/Globulin Ratio (1.0-2.8) TSH (0.47-4.68) uIU/mL Free T4 (0.78-2.19) ng/dL Urine Color Yellow Urine Appearance Clear Urine pH 6.0 (4.5-8.0) Ur Specific [place] 1.025 (1.000-1.035) Urine Protein 1+ H (Negative) Urine Glucose (UA) Negative (Negative) g/dL Urine Ketones Negative (NEGATIVE) Urine Occult Blood Negative (Negative) Urine Nitrate Negative (Negative) Urine Bilirubin Negative (NEGATIVE) Urine Urobilinogen 0.2 (0.2) E.U./dL Ur Leukocyte Esterase Negative (NEGATIVE) Urine RBC None seen (0-5/HPF) Urine WBC 1-5/hpf (0-5/HPF) Ur Squamous Epith Cells 0-1 /hpf (0-5/HPF) Urine Bacteria Few (2-10) H (None) Ur Culture Indicated? Cult not indicated Urine Test Negative (Negative) Salicylates (<20) mg/dL U Opiates 300ng/mL cut (Negative) Ur Oxycodone Screen (Negative) Urine Methadone Screen (Negative) Acetaminophen (10-30) ug/mL Ur Barbiturates Screen (Negative) U Tricyclic Antidepress (Negative) Ur Phencyclidine Scrn (Negative) Ur Amphetamines Screen (Negative) U Methamphetamines Scrn (Negative) Ur MDMA Scrn (Ecstasy) (Negative) U Benzodiazepines Scrn (Negative) Urine Cocaine Screen (Negative) U Marijuana (THC) Screen (Negative) Ethyl Alcohol ( - 10) mg/dL SARS-CoV-2 (PCR) Negative (Negative) 01/29/22 Range/Units 04:55 WBC (4.5-11.0) X10^3/uL RBC (4.0-5.2) X10^6/uL Hgb (12.0-16.0) g/dL Hct (36-46) % MCV (80-100) fL MCH (26-34) PG MCHC (30-36) % RDW (11.6-14.8) % Plt Count (150-400) X10^3/uL Neut % (Auto) (50-75) % Lymph % (Auto) (25-40) % [place] % (Auto) (3-14) % Eos % (Auto) (2-4) % Baso % (Auto) (0-2) % Neut # (Auto) (6628-3647) /uL Lymph # (Auto) (8092-5664) /uL [place] # (Auto) (0-900) /uL Eos # (Auto) (0-450) /uL Baso # (Auto) (0-100) /uL Sodium (137-145) mmol/L Potassium (3.4-5.1) mmol/L Chloride (98-107) mmol/L Carbon Dioxide (22-32) mmol/L BUN (7-17) mg/dL Creatinine (0.52-1.04) mg/dL Estimated GFR (>60) mL/min BUN/Creatinine Ratio (6-22) Glucose (70-100) mg/dL Calcium (8.4-10.2) mg/dL Total Bilirubin (0.2-1.3) mg/dL AST (14-36) IU/L ALT (<35) IU/L Alkaline Phosphatase (38-126) U/L Total Protein (6.3-8.2) g/dL Albumin (3.5-5.0) g/dL Globulin (1.7-4.1) g/dL Albumin/Globulin Ratio (1.0-2.8) TSH (0.47-4.68) uIU/mL Free T4 (0.78-2.19) ng/dL Urine Color Urine Appearance Urine pH (4.5-8.0) Ur Specific [place] (1.000-1.035) Urine Protein (Negative) Urine Glucose (UA) (Negative) g/dL Urine Ketones (NEGATIVE) Urine Occult Blood (Negative) Urine Nitrate (Negative) Urine Bilirubin (NEGATIVE) Urine Urobilinogen (0.2) E.U./dL Ur Leukocyte Esterase (NEGATIVE) Urine RBC (0-5/HPF) Urine WBC (0-5/HPF) Ur Squamous Epith Cells (0-5/HPF) Urine Bacteria (None) Ur Culture Indicated? Urine Test (Negative) Salicylates (<20) mg/dL U Opiates 300ng/mL cut Negative (Negative) Ur Oxycodone Screen Negative (Negative) Urine Methadone Screen Negative (Negative) Acetaminophen (10-30) ug/mL Ur Barbiturates Screen Negative (Negative) U Tricyclic Antidepress Negative (Negative) Ur Phencyclidine Scrn Negative (Negative) Ur Amphetamines Screen Positive H (Negative) U Methamphetamines Scrn Positive H (Negative) Ur MDMA Scrn (Ecstasy) Positive H (Negative) U Benzodiazepines Scrn Positive H (Negative) Urine Cocaine Screen Negative (Negative) U Marijuana (THC) Screen Negative (Negative) Ethyl Alcohol ( - 10) mg/dL SARS-CoV-2 (PCR) (Negative) ECG Data Interpretation: Normal sinus rhythm rate 93 AR interval 144 QRS [address] changes MDM Narrative Medical decision making narrative: Patient becoming agitated wanting to leave given droperidol and Ativan she do seem to help. She slept for most of the evening. Awaiting for urine blood work is overall unremarkable. Patient wakes upper on 08/20 in the morning is this a urine sample and now feeling better wants to leave. She is wanting to go to [facility] to get her social security squared away. Is supposed to go to a longer inpatient stay 28 days is but it is unclear details of this. According to social work note DCR is to be contacted once she is medically cleared. Convince patient to take her Zyprexa and wait for breakfast. Frequent ER visits. Seems to be escalating. Although now feeling better. Patient is caught sniffing paper up her nose in room 13. She had some ruled paper head and in her leggings. She is having frequent visits heart sure if she is truly disabled. Calling DCR. Patient really is having clear mentation. She really needs to get her social security squared away she would like to catch the bus she has appointments. She certainly seems like she is capable of doing these things. She has had frequent visits is although she seems to be at her baseline after sleeping in the ED with medication. She was given her Zyprexa as of this morning. She does not want to wait. At this time she really is not gravely disabled. There is apparently a plan for her to have long-term placement she does not want to go now she needs to get her social security squared away. I did speak with DCR his states that she is really not detainable Discharge Plan Departure Patient Disposition: Home Clinical Impression: Chronic schizophrenia Instructions: DI for Schizoaffective Disorder Activity Restrictions/Additional Instructions: *You have been diagnosed with chronic schizophrenia *What to do: You were given Zyprexa 10 mg at 5:45 a.m. *Continue to take medications as directed *Follow up with your primary care provider in 2-3 days or call [phone] *Return to ER if you should have any new, worsening or concerning symptoms Prescriptions: No Action Unobtainable Referrals: Ele Rodgers MD [Primary Care Provider] - Visit Report Forms: Patient Portal/API
[2022-01-28 18:33] LABS: Add Manual Diff / Slide Review NO; Basophils Absolute Auto 100 /uL (0-100); Basophils Percent Auto 0.8 % (0-2); Eosinophils Absolute Auto 100 /uL (0-450); Eosinophils Percent Auto 1.1 % (2-4); Hematocrit 34.3 % (36-46); Hemoglobin 11.6 g/dL (12.0-16.0); Lymphocytes Absolute Auto 1900 /uL (1100-4500); Lymphocytes Percent Auto 17.1 % (25-40); Mean Corpuscular HGB Conc 33.8 % (30-36); Mean Corpuscular Hemoglobin 27.9 PG (26-34); Mean Corpuscular Volume 82.6 fL (80-100); Monocytes Absolute Auto 1000 /uL (0-900); Monocytes Percent Auto 8.8 % (3-14); Neutrophils Absolute Auto 7900 /uL (1500-7000); Neutrophils Percent Auto 72.2 % (50-75); Platelet Count 431 X10^3/uL (150-400); Red Blood Cell Count 4.15 X10^6/uL (4.0-5.2); Red Cell Distribution Width 14.8 % (11.6-14.8); White Blood Cell Count 10.9 X10^3/uL (4.5-11.0)
[2022-01-28 18:35] VITALS: BP 177/112; PULSE 86; RESP 12; O2SAT 99
--- NOTE | 2022-01-28 18:35 | PC.NURSE ---
Pt continued to come in and out of room. Yelling out, Yelling at other patients. Unable to be verbally redirected. Encouraged to return to room 13 and did not. Pt then escorted to room 13. Allowed me to draw her blood and do covid swab. Changed to [facility]. Belongings locked up as per policy. Pt 1:1 constant observation during this time.
[2022-01-28 18:44] VITALS: BP 176/116
--- NOTE | 2022-01-28 18:45 | CM.SWNOTE ---
Addendum entered by WYATT Luna 01/28/22 20:17: SW reviewed chart and still awaiting urinalysis. Checked in with actuarial analyst and found signed affidavit from PACT manufacturing team member Nandini on pt's chart. RN aware that DCR needs to be called when pt is medically cleared. Signed affidavit will be sent along with DCR packet. WYTAT Luna Original Note: [facility] [place] - Print Finishing Worker Assessment Pt is a 42 year old female with a history of schizophrenia and methamphetamine use that presents to the ED with paranoid delusions that someone is following her and that she is unsafe. Pt has [employer] Medicaid. SW actively involved in de-escalation of patient, as she arrived in crisis with psychotic symptoms. Pt was administered antipsychotics and pt calmed. SW will reach out to DCR when pt has been medically cleared. WYATT Luna [facility] [place] - Print Finishing Worker Assessment Start: 01/28/22 18:35 Freq: Status: Active Protocol: Document 01/28/22 18:35 TM (Rec: 01/28/22 18:44 TM [id number]) FOOD CHECKER/Print Finishing Worker Assessment Time Spent with Patient Start date 01/28/22 Visit Start Time 17:30 End date 01/28/22 Mental Health Screening Include Onset, Duration, Intensity Presenting Problem Pt presents from community with paranoid dellusions that someone is trying to lew her . Precipitating Event(s) Pt has history of schizophrenia and methamphetamine use. Pt was seen by PACT team this afternoon and received her medicine however, pt began to feel unsafe and was brought to the ED by [facility]. PACT team members also met pt at hospital to assess situation. Current Behavioral Health Provider(s) PACT team, [facility] ([id number]) Include Facility, Provider, Ph. # [phone] Psych. Hx Mental Health and Chemical Pt has history of Dependency methamphetamine use. Pt has long history of psychiatric hospitalizations and [place] holds . Psychiatric Hospitalizations (date(s)/ Extensive Hx. See record. location) Psychosocial information & Support Pt is supported by members of Systems the PACT team as well as team mebers from [facility]. School/Work Pt is unemployed. Mental Status Orientation (Person/Place/Time) Pt oriented to person and place. Time not tested. Stated Mood Pt reports feeling afraid of people that are following her and trying to hurt her. Affect (Congruent with Mood?) Liable. Thought Content - Specify/Describe Pt is responding to internal Obsessions, Delusions, Hallucinations stimuli. Pt reports AH and VH. Pt reports fixed delusion that someone is following her, trying to pull her ponytail, and hurt her. Thought Processes (Uijxujh-Mfpopccj-Idss Tangential, disorganized. Ausgxvey-Vmqgiato-Fvnnkkzodl- Qmynupazmwvzhm-Ebvijew-Biqasqehfglx- Thought Blocking) Speech (Piilfa-Bott-Yrvifjr-Rapid-Soft- Labile - at times rapid and Loud-Pressured) loud, other times calm. Motor (Vggcgd-Gvpaegksu-Uema-Other) Labile. Insight (Vazn-Giyo-Sbvp/Limited) Limited. Judgement (Yhzv-Akrt-Xrqj/Limited) Limited. Impulse Control (Adequate-Impaired) Limited - per attempts to leave ED. Memory (Akydohxpr-Rtfvkd-Vhgrdv, not tested. Impaired-Intact) Concentration (Intact-Impaired) impaired. Attention (Intact-Impaired) impaired. Behavior (Appropriate-Inappropriate) inappropriate. Pt pacing around room, responding to internal stimuli, refusing to sit or stay in her room. Risk Assessment Suicidal Ideation (Plan) No Homicidal Ideation (Plan) No Comment At this time, pt appears gravely disabled and unable to keep herself safe. Intervention Intervention SW met pt in hallway and spent 30 minutes redirecting and trying to get her to stay in her room. SW provided validation and support through pt's crisis. Pt not able to participate in meaningful interview due to her psychotic symptoms. Plan RA Plan SW and ED provider discussed and once pt is medically clear , DCR will come and evaluate.
[2022-01-28 19:04] LABS: Acetaminophen < 10 ug/mL (10-30); Alanine Aminotransferase 16 IU/L (<35); Albumin 4.5 g/dL (3.5-5.0); Albumin Globulin Ratio 1.3 (1.0-2.8); Alkaline Phosphatase 75 U/L (38-126); Aspartate Aminotransferase 24 IU/L (14-36); BUN Creatinine Ratio 18.8 (6-22); Bilirubin Total 0.4 mg/dL (0.2-1.3); Blood Urea Nitrogen 16 mg/dL (7-17); Calcium 8.7 mg/dL (8.4-10.2); Carbon Dioxide 26 mmol/L (22-32); Chloride 97 mmol/L (98-107); Estimated Glomerular Filt Rate > 60 mL/min (>60); Ethanol (ETOH) < 10 mg/dL; Globulin 3.4 g/dL (1.7-4.1); Glucose 149 mg/dL (70-100); HEMOLYSIS < 15 (0-50); Potassium 3.5 mmol/L (3.4-5.1); Salicylate < 1.0 mg/dL (<20); Sodium 136 mmol/L (137-145); Total Protein 7.9 g/dL (6.3-8.2)
[2022-01-28 19:05] LABS: COVID19 -Nasal RAPID Negative (Negative)
[2022-01-28 19:20] LABS: Free T4, Direct Thyroxine 1.15 ng/dL (0.78-2.19)
[2022-01-28 19:34] LABS: Thyroid Stimulating Hormone 3.43 uIU/mL (0.47-4.68)
[2022-01-29 05:04] LABS: Pregnancy Test Urine Negative (Negative)
--- NOTE | 2022-01-29 05:17 | PC.NURSE ---
Pt woke up from about an 9 hour sleep and used the BR, while being back in the room Pt took out a manila envelope and snorted something up her nose. I let the ED charge nurse know about this and she went into the room to see what was going on but nothing was there.
--- NOTE | 2022-01-29 05:27 | PC.NURSE ---
Called to room, pt was holding rolled up paper, with a small manila envelope and appeared to be snorting, when asked to see what she was doing, patient held out paper and envelope and no substance appeared to be in the paper or the envelope. Pt denied any drug use. Leggings and socks confiscated and placed in locked cabinet.
[2022-01-29 05:41] LABS: Appearance Urine UA CLEAR; Bilirubin Urine UA NEGATIVE (NEGATIVE); Color Urine UA YELLOW; Glucose Urine UA NEGATIVE (Negative); Ketones Urine UA NEGATIVE (NEGATIVE); Leukocyte Esterase Urine UA NEGATIVE (NEGATIVE); Nitrite Urine UA NEGATIVE (Negative); Occult Blood Urine UA NEGATIVE (Negative); Protein Urine UA 1+ (Negative); Specific Gravity Urine UA 1.025 (1.000-1.035); Ur Creatinine 20 (Normal); Urobilinogen Urine UA 0.2 E.U./dL (0.2)
[2022-01-29 05:42] LABS: UR Morphine/Opiate cutoff 300 Negative (Negative); Ur Specific Gravity >1.030 (Normal); Urine Amphetamines Positive (Negative); Urine Barbiturates Negative (Negative); Urine Benzodiazepines Positive (Negative); Urine Cocaine Negative (Negative); Urine MDMA Positive (Negative); Urine Methadone Negative (Negative); Urine Methamphetamines Positive (Negative); Urine Oxycodone Negative (Negative); Urine Phencyclidine Negative (Negative); Urine Tetrahydrocannabinol Negative (Negative); Urine Tricyclic Antidepressant Negative (Negative); Urine pH 5 (Normal)
[2022-01-29] MEDS: OLANZapine ODT 10 MG TAB PO (05:44)
[2022-01-29] MEDS: LORazepam 0.5 MG TABLET 2 MG PO (06:24)
[2022-01-29 06:32] VITALS: BP 169/92; PULSE 94; O2SAT 98
[2022-01-29 06:41] LABS: RBC Urine None Seen (0-5/HPF); Squamous Epithelial Cell Urine 0-1 /HPF (0-5/HPF); WBC Urine 1-5/HPF (0-5/HPF)
[2022-01-29 06:42] LABS: Bacteria Urine Few (2-10); Culture Indicated Urine Cult Not Indicated
== END 2022-01-29 07:03 | disposition home or self-care (01) ==
PROVIDERS: Emergency Medicine; Student in an Organized Health Care Education/Training Program; Emergency Provider Emergency Medicine; Family Provider Family Medicine; PCP Family Medicine
DX: F20.9 Schizophrenia, unspecified (principal); R07.9 Chest pain, unspecified; Z20.822 Contact with and (suspected) exposure to COVID-19
CPT/HCPCS: 36415; 80053; 80305; 80320; 80329; 81001; 81025; 84439; 84443; 85025; 87635; 93005; 93010; 96372; 99284; C9803; G0480; J1790; J2060

== ENCOUNTER 2022-01-30 18:48 | Emergency (ER) | payer OTHER, MEDICAID, SELFPAY ==
--- NOTE | 2022-01-30 21:08 | PC.NURSE ---
Late entry: Attempted to find [facility] for triage @1900. Not in waiting room.
--- NOTE | 2022-01-30 21:09 | PC.NURSE ---
late entry: Not in waiting room at 1930. VDC prior to triage.
== END 2022-01-30 20:00 | disposition left against medical advice (07) ==
PROVIDERS: Emergency Provider Emergency Medicine; Family Provider Family Medicine; PCP Family Medicine

== ENCOUNTER 2022-02-17 17:20 | Emergency (ER) | payer OTHER, MEDICAID, SELFPAY ==
[2022-02-17 18:22] VITALS: BP 199/118; PULSE 105; RESP 16; TEMP 37.3; O2SAT 99
--- NOTE | 2022-02-17 19:57 | ED.PSYCH ---
HPI - Psych General Chief Complaint: Psychiatric Symptoms Stated Complaint: AMS, AFRAID Time Seen by Provider: 02/17/22 19:17 Source: patient Mode of arrival: Ambulatory History of Present Illness HPI Narrative: Patient is a 42-year-old female history of chronic ongoing schizophrenia and paranoia with methamphetamine abuse. Present today with insomnia and wanting to sleep. She just got relief from a 20 date in patient's day. She says she is overall doing really well she has off outpatient support. She just feels like she wants to sleep she feels little bit paranoid but overall looks significantly better than any other time I have ever seen her. She did denies any suicidal or homicidal thoughts. Related Data Home Medications Medication Instructions Recorded Confirmed Unobtainable 09/29/20 09/29/20 Allergies Allergy/AdvReac Type Severity Reaction Status Date / Time No Known Drug Allergies Allergy Verified 01/12/22 21:35 Review of Systems Review of Systems Narrative: GENERAL: Denies chills,fever HEENT: Denies throat pain RESPIRATORY: Denies dyspnea, cough, wheezing CARDIOVASCULAR: Denies chest pain, palpitations GASTROINTESTINAL: Denies nausea, vomiting MUSCULOSKELETAL: Denies extremity pain, injury SKIN: No rash, no laceration, no pruritus NEUROLOGIC: Denies weakness, dizziness, headache, numbness 8 point review of systems is negative except for those stated above and HPI Psychiatric Psychiatric: Reports system reviewed and no additional complaints, except as documented, Reports as per HPI and Reports paranoia Patient History Medical History Drug abuse Schizophrenia Social History Smoking Status: Current every day smoker Smoking Status: Current every day smoker tobacco type: cigarettes alcohol intake frequency: other Substance Use Type: methamphetamine and unknown Exam Initial Vital Signs Initial Vital Signs: Vital Signs Temperature 99.1 F 02/17/22 18:22 Pulse Rate 105 H 02/17/22 18:22 Respiratory Rate 16 02/17/22 18:22 Blood Pressure 199/118 H 02/17/22 18:22 Pulse Oximetry 99 02/17/22 18:22 Oxygen Delivery Method 02/17/22 18:22 GENERAL: well-appearing 42-year-old female CARDIOVASCULAR: peripheral pulses in tact, cap refill <2 sec RESPIRATORY: No respiratory distress, speaks in full sentences without difficulty EXTREMITIES: Normal range of motion, no clubbing or edema. Neurovascularly intact NEUROLOGICAL: Cranial nerves II through XII grossly intact. Normal gait and speech. SKIN: Warm, dry, no petechiae, no rashes or lesions. Course Orders Ordered: Discontinued Medications Haloperidol (Haloperidol 5 Mg/Ml Vial) 5 mg IM NOW ONE Stop: 02/17/22 20:03 Last Admin: 02/17/22 20:07 Dose: 5 mg Documented By: GUTIREREZ Vital Signs Vital signs: Vital Signs - 8 hr 02/18/22 04:35 Pulse Rate 101 H Respiratory Rate 18 Blood Pressure 136/84 Pulse Oximetry 97 MDM - Psych MDM Narrative Medical decision making narrative: Patient is interactive she has good eye contact she overall looks much better than I have seen her previously. She is wanting a shot. After reviewing the charts it looks like she has gotten Haldol in the past. No suicidal or homicidal ideations. She is certainly not gravely disabled. She has good outpatient support she wants to go back to her living situations that she does not lose it. Does not be any sort of involuntary criteria at this time. Discharge Plan Departure Patient Disposition: Home Clinical Impression: Chronic schizophrenia Instructions: DI for Schizoaffective Disorder Activity Restrictions/Additional Instructions: *You have been diagnosed with schizophrenic *What to do: Please follow-up with PACT team you need your medication see do not feel this way *Continue to take medications as directed *Follow up with your primary care provider in 2-3 days or call [phone] *Return to ER if you should have any new, worsening or concerning symptoms Prescriptions: No Action Unobtainable Referrals: Ele Rodgers MD [Primary Care Provider] - Visit Report Forms: Patient Portal/API
--- NOTE | 2022-02-17 20:04 | CM.SWNOTE ---
STATOR CONNECTOR Assessment STATOR CONNECTOR - Regional Facilities Specialist Assessment Document 02/17/22 19:36 LN (Rec: 02/17/22 20:04 LN [id number]) STATOR CONNECTOR/Regional Facilities Specialist Assessment Time Spent with Patient Start date 02/17/22 Visit Start Time 18:20 End date 02/17/22 Visit End Time 18:35 Total time Care Management spent on 15 minutes patient visit-in minutes Mental Health Screening Include Onset, Duration, Intensity Presenting Problem Patient presents to ED from community due to concern for paranoid delusions of being chased and stalked. Precipitating Event(s) Patient endorses she was recently discharged from [facility] after a 20 day inpatient stay. Per Peyton, patient was [facility] from 01/30/22 - 02/15/22. Patient has hx of Schizophrenia and Methamphetamine use. Patient has hx of 12 ED visits within the last month, and 48 ED visits within the last year related to these concerns. Patient Strengths Patient has community supports from [facility], [facility] Sales Office Administrator and the PACT team. Current Behavioral Health Provider(s) Patient is connected with the [facility], Provider, Ph. # [facility] PACT Team with provider Jonah Phoenix (Ph. # [phone]) Psych. Hx Mental Health and Chemical Patient has hx of Dependency Methamphetamine use, Psychosis and paranoia. Family Hx of Behavioral Abuse None reported Psychiatric Hospitalizations (date(s)/ Patient has extensive hx over location) that last several years of ED encounters and [facility] and [facility] inpatient stays, most recently at [facility] from 01/30/22-02/15/22. Psychosocial information & Support Patient is 42 y/o female who Systems resides in the [facility]. Patient endorses she has a room at the [facility] through her connection with [facility] . School/Work Unemployed Legal Concerns Legal Matters - Outstanding Issues None reported Mental Status Orientation (Person/Place/Time) A/Ox3 Stated Mood I feel like someone is after me Affect (Congruent with Mood?) Anxious, responding to internal stimuli - fear she is being chased, redirectable, stable at times, congruent with mood. Thought Content - Specify/Describe Patient presents with visual Obsessions, Delusions, Hallucinations and auditory hallucinations, paranoia that she is unsafe and someone is out to get her. Patient presents verbally responding to internal stimuli . Patient endorses she is afraid and fearful that she is being chased and someone is out to get her. Patient endorses concern for her safety out in the community. Upon arrival to ED patient endorses her safety but throughout ED stay patient as fearful moments but is able to pace back and forth and self soothe. Thought Processes (Xiklrno-Saduanqa-Peqi tangential, repetitive Ctfmlwdq-Xxrhmcwb-Ypfsqmiiyl- Eixikjoulknmfz-Rxbwbgh-Mqrfbnghtydg- Thought Blocking) Speech (Zgwgjm-Ewkm-Istdone-Rapid-Soft- pressured, soft Loud-Pressured) Motor (Kmxuwe-Lmyfxqchx-Sopw-Other) Patient is unable to sit still and often gets up and walks around pacing to sooth self. Insight (Ssax-Gzxy-Xaex/Limited) limited Judgement (Waat-Mhgi-Zlvi/Limited) limited Impulse Control (Adequate-Impaired) impaired due to patient's responses to internal stimulus Memory (Rdjhaibzi-Fhmtmq-Akfukk, intact, not formally assessed Impaired-Intact) Concentration (Intact-Impaired) intact Attention (Intact-Impaired) intact Behavior (Appropriate-Inappropriate) appropriate, patient is redirctable. Patient presents as calm, communicative and cooperative. Risk Assessment Suicidal Ideation (Plan) No Homicidal Ideation (Plan) No Intervention Intervention STATOR CONNECTOR enters triage and meets with patient with superintendent generating plant. Patient endorses she presents to ED due to fear and concern she is being chased, patient states she feels unsafe. Patient endorses she does not want to go to inpatient hospital as she just discharged from [facility] after a 20 day stay. Per Peyton, patient was recently discharged on 02/15/22 after a 16 day stay. Patient endorses she has an appt with the PACT team tomorrow. Patient endorses she wants local supports such as churches to help her feel safe. Patient endorses she has supports from Community Sales Office Administrator Jose Alfredo Esqueda, [facility] and PACT team. Patient endorses she has [facility] room [facility] and has plans to return to room this evening. Patient is requesting medication to help her sleep and seeking safety from the ED . Patient endorses plans to call PCP office to schedule appt with PCP Dr. Rodgers. It is the opinion of this STATOR CONNECTOR that patient would benefit from DCR evaluation due to re- occurring ED visits related to Methamphetamine use and Schitzophrenia. In comparison to patient's previous ED presentations, it is the opinion of this STATOR CONNECTOR that patient presents as more calm, coherent and capable to follow through with outpatient care plan and is safe to d/c to home upon medical clearance . STATOR CONNECTOR to call PACT team, Community Sales Office Administrator and [facility]. STATOR CONNECTOR reviews the above with ED provider Dr. Watkins, ED provider to assess patient further. Plan RA Plan Plan: Patient likely to d/c to community upon medical clearance and f/u with outpatient PACT team. ED provider to assess patient further regarding POC. Roselyn Michel, MILITARY PAY CLERK
[2022-02-17] MEDS: HALOPERIDOL 5 MG/ML VIAL IM (20:07)
--- NOTE | 2022-02-17 20:18 | CM.SWNOTE ---
DOWELING MACHINE OPERATOR Note DOWELING MACHINE OPERATOR calls PACT Team (Ph. # [phone]) and speaks with transitional care nurse staff. It is reported that patient was not found medication dosing yesterday and possibly today. It was reported that patient has current LRO and patient is not compliant at this time due to the challenge of PACT team's ability to find patient for medication. DOWELING MACHINE OPERATOR confirms that patient reports she has a room at the [facility]. DOWELING MACHINE OPERATOR calls Community Unit Control Worker Jose Alfredo Esqueda and leaves regarding patient in efforts to coordinate with PACT team and AFC to coordinate patient's medication dosing tomorrow. Plan: Patient to d/c to community upon medical clearance, patient to f/u with PACT team and community supports tomorrow. JENNY Rogers
[2022-02-18 04:35] VITALS: BP 136/84; PULSE 101; RESP 18; O2SAT 97
== END 2022-02-18 04:37 | disposition home or self-care (01) ==
PROVIDERS: Emergency Provider Emergency Medicine; Family Provider Family Medicine; PCP Family Medicine
DX: F20.9 Schizophrenia, unspecified (principal)
CPT/HCPCS: 96372; 99283; J1630

== ENCOUNTER 2022-02-18 17:45 | Emergency (ER) | payer OTHER, MEDICAID, SELFPAY ==
[2022-02-18 18:22] VITALS: BP 186/110; PULSE 109; RESP 18; O2SAT 97; BMI 26.6
[2022-02-18] MEDS: OLANZapine ODT 10 MG TAB PO (19:04)
[2022-02-18] MEDS: OLANZapine ODT 10 MG TAB 20 MG PO (19:04)
--- NOTE | 2022-02-18 19:09 | CM.SWNOTE ---
*[facility] ROCK CRUSHER Assessment ROCK CRUSHER - Substation Operator Automatic Assessment Document 02/18/22 ROCK CRUSHER/Substation Operator Automatic Assessment Time Spent with Patient Start date 02/18/22 Visit Start Time 184 End date 02/18/22 Visit End Time 191 Total time Care Management spent on 25 min patient visit-in minutes Mental Health Screening Include Onset, Duration, Intensity Presenting Problem Patient presents to ED from community due to concern for paranoid delusions of being chased and stalked. Precipitating Event(s) Patient endorses she was recently discharged from [facility] after a 20 day inpatient stay. Per Peyton, patient was [facility] from 01/30/22 - 02/15/22. Patient has hx of Schizophrenia and Methamphetamine use. Patient has hx of 13 ED visits within the last month, and 48 ED visits within the last year related to these concerns. Patient Strengths Patient has community supports from [facility], [facility] Costing Analyst and the PACT team. Current Behavioral Health Provider(s) Patient is connected with the [facility], Provider, Ph. # [facility] PACT Team with provider Jonah Phoenix (Ph. # [phone]) Psych. Hx Mental Health and Chemical Patient has hx of Dependency Methamphetamine use, Psychosis and paranoia. Family Hx of Behavioral Abuse None reported Psychiatric Hospitalizations (date(s)/ Patient has extensive hx over location) that last several years of ED encounters and [place] [facility] stays, most recently at [facility] from 01/30/22-02/15/22. Psychosocial information & Support Patient is 42 y/o female who Systems resides in the [facility]. Patient endorses she has a room at the [facility] through her connection with [facility] . School/Work Unemployed Legal Concerns Legal Matters - Outstanding Issues None reported Mental Status Orientation (Person/Place/Time) A/Ox3 Stated Mood I feel like someone is after me Affect (Congruent with Mood?) Anxious, responding to internal stimuli - fear she is being chased, redirectable, stable at times, congruent with mood. Thought Content - Specify/Describe Patient presents with visual Obsessions, Delusions, Hallucinations and auditory hallucinations, paranoia that she is unsafe and someone is out to get her. Patient presents verbally responding to internal stimuli . Patient endorses she is afraid and fearful that she is being chased and someone is out to get her. Patient endorses concern for her safety out in the community. In ED, patient is fearful but is able to pace back and forth and self soothe. Thought Processes (Xzynjnj-Kuhsxyyg-Dgxx tangential, repetitive Mzawppjb-Euapsygt-Kqofdtndac- Jvwwvdchylrwig-Jnmkpro-Duxsfzpenzxe- Thought Blocking) Speech (Btpsuo-Jujw-Eumiewb-Rapid-Soft- pressured, soft Loud-Pressured) Motor (Qyqjpj-Allpwyxec-Mzlk-Other) Patient is unable to sit still and often gets up and walks around pacing to sooth self. Insight (Ngws-Ojch-Coic/Limited) limited Judgement (Pldr-Dfsb-Vgfw/Limited) limited Impulse Control (Adequate-Impaired) impaired due to patient's responses to internal stimulus Memory (Xvntycxvs-Pjgsdy-Kohtzs, intact, not formally assessed Impaired-Intact) Concentration (Intact-Impaired) intact Attention (Intact-Impaired) intact Behavior (Appropriate-Inappropriate) appropriate, patient is redirctable. Patient presents as calm, communicative and cooperative. Risk Assessment Suicidal Ideation (Plan) No Homicidal Ideation (Plan) No Intervention Intervention ROCK CRUSHER enters triage and meets with patient with casing flusher. Patient endorses she presents to ED due to fear and concern she is being chased, patient states she feels unsafe. Patient reports that she does not want to go to inpatient hospital as she just discharged from [facility] after a 20 day stay. Per Peyton, patient was recently discharged on 02/15/22 after a 16 day stay. Patient reports that she wants her medication to help her feel safe. SERGEY calls PACT team [phone] and talked to Jonah and DONNA Javier, who report that pt did not receive her medication today. SERGEY confirms that pt's medication is 30mg of Olanzipine. SERGEY discussed with , who agrees to give pt her dose for today. Plan RA Plan Plan: Patient likely to d/c to community upon medical clearance and f/u with outpatient PACT team. WYATT Luna
--- NOTE | 2022-02-18 21:18 | ED_ITS ---
HPI - Psych General Chief Complaint: Psychiatric Symptoms Stated Complaint: Feels like someone chasing her Time Seen by Provider: 02/18/22 18:04 Source: patient Mode of arrival: Ambulatory History of Present Illness HPI Narrative: 42-year-old smoker with history of schizophrenia and methamphetamine use presents today stating that she is afraid people are chasing. She states she has been taking her medications as directed and has been able to eat and drink and largely care for herself. She denies suicidal or homicidal ideation. Patient had recently been hospitalized at [facility] for a 20 day stay and was discharged on 02/15. She is established with [facility] PACT team. She denies headache or blurred vision. She has no chest pain or shortness of breath. She denies nausea, vomiting or diarrhea. Related Data Home Medications Medication Instructions Recorded Confirmed Unobtainable 09/29/20 09/29/20 Allergies Allergy/AdvReac Type Severity Reaction Status Date / Time No Known Drug Allergies Allergy Verified 01/12/22 21:35 Review of Systems Review of Systems Narrative: GENERAL: Denies chills, fatigue, malaise, fever, sweats. HEENT: Denies sinus pain, ear pain, sore throat, difficulty swallowing, dizziness. RESPIRATORY: Denies dyspnea, cough, wheezing, hemoptysis, sputum. CARDIOVASCULAR: Denies chest pain, palpitations, orthopnea, edema, GASTROINTESTINAL: Denies nausea, vomiting, abdominal pain, diarrhea, constipation, melena. : Denies dysuria, frequency, incontinence, hematuria, urinary retention. MUSCULOSKELETAL: denies weakness, joint pain, or bony pain SKIN: Denies rash, skin lesions, or other NEUROLOGIC: Denies weakness, headache, numbness, change in speech, confusion, seizures, incoordination. PSYCHIATRIC: See HPI 12 point review of systems is negative except for those stated above Patient History Medical History Drug abuse Schizophrenia Social History Smoking Status: Current every day smoker Smoking Status: Current every day smoker tobacco type: cigarettes alcohol intake frequency: other Substance Use Type: methamphetamine and unknown Exam Narrative Exam Narrative: GENERAL: 42[] year old patient appears stated age. Well-developed patient, in mild distress. Slightly paranoid but largely better than her typical presentation HEAD: Atraumatic. Normocephalic. EYES: Pupils equal round and reactive. Extraocular motions intact. No scleral i cterus. No injection or drainage. ENT: Nose without bleeding, purulent drainage. Throat without erythema, tonsillar hypertrophy or exudate. Airway patent. NECK: Trachea midline. Non tender CARDIOVASCULAR: Regular rate and rhythm without murmurs, gallops, or rubs. RESPIRATORY: Clear to auscultation. Breath sounds equal bilaterally. No wheezes, rales, or rhonchi. GASTROINTESTINAL: Abdomen soft, non-tender, nondistended. EXTREMITIES: No edema or joint tenderness. BACK: Nontender without deformity or crepitance. No flank tenderness. NEURO: AOx3. SKIN: No rash or erythema of visible areas Initial Vital Signs Initial Vital Signs: Vital Signs Pulse Rate 109 H 02/18/22 18:22 Respiratory Rate 18 02/18/22 18:22 Blood Pressure 186/110 H 02/18/22 18:22 Pulse Oximetry 97 02/18/22 18:22 Oxygen Delivery Method 02/18/22 18:22 Course Course Course Narrative: Patient has been seen and evaluated by social work, we sure the opinion that she does not meet any indication for hospitalization against her will. TRUCK DRIVER HELPER has confirmed dosing of Zyprexa to be 30mg daily per nursing that helps manage her medications Orders Ordered: ED Orders 02/18/22 18:29 Consult to TRUCK DRIVER HELPER - Product Safety Test Engineer Stat Discontinued Medications Olanzapine (Olanzapine Odt 10 Mg Tab) 10 mg PO NOW ONE Stop: 02/18/22 18:53 Last Admin: 02/18/22 19:04 Dose: 10 mg Documented By: TRISHA Olanzapine (Olanzapine Odt 10 Mg Tab) 20 mg PO NOW ONE Stop: 02/18/22 18:53 Last Admin: 02/18/22 19:04 Dose: 20 mg Documented By: TRISHA Vital Signs Vital signs: Vital Signs - 8 hr 02/18/22 18:22 02/18/22 23:53 Pulse Rate 109 H 107 H Respiratory Rate 18 14 Blood Pressure 186/110 H 158/85 H Pulse Oximetry 97 99 Oxygen Delivery Method Room Air Room Air MDM - Psych MDM Narrative Medical decision making narrative: Patient presents feeling paranoid as if she is being chased, this is her typical presentation. She is not suicidal or homicidal and does not meet indication for hospitalization. She is given her Zyprexa and after a few hours is awake and alert, walking a straight line and requesting discharge, wants to go home to sleep, she will be in touch with the pact team in the morning. She is given return precautions and questions have been answered to her apparent satisfaction Discharge Plan Departure Patient Disposition: Home Clinical Impression: Chronic schizophrenia Instructions: DI for Schizophrenia Activity Restrictions/Additional Instructions: There is no evidence of an emergent or life threatening illness at this time, but follow up with your doctor in 1-2 days is recommended nonetheless to continue to rule out serious underlying causes of your symptoms. Please call the office for an appointment. Please return to the Emergency Department for any worsening or persistent symptoms. Please take medications as directed. Prescriptions: No Action Unobtainable Referrals: Ele Rodgers MD [Primary Care Provider] - Visit Report Forms: Patient Portal/API
[2022-02-18 23:53] VITALS: BP 158/85; PULSE 107; RESP 14; O2SAT 99
== END 2022-02-18 23:54 | disposition home or self-care (01) ==
PROVIDERS: Emergency Provider Emergency Medicine; Family Provider Family Medicine; PCP Family Medicine
DX: F20.9 Schizophrenia, unspecified (principal)
CPT/HCPCS: 99283

== ENCOUNTER 2022-02-19 21:07 | Emergency (ER) | payer OTHER, MEDICAID, SELFPAY ==
[2022-02-19 21:31] VITALS: BP 172/99; PULSE 95; RESP 22; TEMP 37.2; O2SAT 98; BMI 26.6
--- NOTE | 2022-02-19 21:40 | ED.PSYCH ---
HPI - Psych General Chief Complaint: Psychiatric Symptoms Stated Complaint: feels like people are stalking her Time Seen by Provider: 02/19/22 21:16 Source: patient Mode of arrival: Ambulatory History of Present Illness HPI Narrative: 42-year-old female smoker with history of schizophrenia and methamphetamine abuse presents again, she has been here multiple days in a row and 2 other facilities as well with a chief complaint of feeling like people might be chasing her. She is well-known to myself and staff. She actually appears very stable and pretty well today. She denies suicidal or homicidal ideation. She has no headache or blurred vision or trouble with speech. She has no chest pain, shortness of breath or cough. She denies nausea, vomiting or diarrhea. She states that she is been taking her medications as directed and has not been using methamphetamines. She has been in touch with her pact team Related Data Home Medications Medication Instructions Recorded Confirmed Unobtainable 09/29/20 09/29/20 Allergies Allergy/AdvReac Type Severity Reaction Status Date / Time No Known Drug Allergies Allergy Verified 01/12/22 21:35 Review of Systems Review of Systems Narrative: GENERAL: Denies chills, fatigue, malaise, fever, sweats. HEENT: Denies sinus pain, ear pain, sore throat, difficulty swallowing, dizziness. RESPIRATORY: Denies dyspnea, cough, wheezing, hemoptysis, sputum. CARDIOVASCULAR: Denies chest pain, palpitations, orthopnea, edema, GASTROINTESTINAL: Denies nausea, vomiting, abdominal pain, diarrhea, constipation, melena. : Denies dysuria, frequency, incontinence, hematuria, urinary retention. MUSCULOSKELETAL: denies weakness, joint pain, or bony pain SKIN: Denies rash, skin lesions, or other NEUROLOGIC: Denies weakness, headache, numbness, change in speech, confusion, seizures, incoordination. PSYCHIATRIC: See HPI 12 point review of systems is negative except for those stated above Patient History Medical History Drug abuse Schizophrenia Social History Smoking Status: Current every day smoker Smoking Status: Current every day smoker tobacco type: cigarettes alcohol intake frequency: other Substance Use Type: methamphetamine and unknown Exam Narrative Exam Narrative: GENERAL: [42] year old patient appears stated age. Well-developed patient, in no obvious significant distress though she is mildly paranoid. She is alert and oriented, GCS 15 HEAD: Atraumatic. Normocephalic. EYES: Pupils equal round and reactive. Extraocular motions intact. No scleral icterus. No injection or drainage. ENT: Nose without bleeding, purulent drainage. Throat without erythema, tonsillar hypertrophy or exudate. Airway patent. NECK: Trachea midline. Non tender CARDIOVASCULAR: Regular rate and rhythm without murmurs, gallops, or rubs. RESPIRATORY: Clear to auscultation. Breath sounds equal bilaterally. No wheezes, rales, or rhonchi. GASTROINTESTINAL: Abdomen soft, non-tender, nondistended. EXTREMITIES: No edema or joint tenderness. BACK: Nontender without deformity or crepitance. No flank tenderness. NEURO: Cranial nerves 2-12 grossly intact. SKIN: No rash or erythema of visible areas Initial Vital Signs Initial Vital Signs: Vital Signs Temperature 98.9 F 02/19/22 21:31 Pulse Rate 95 H 02/19/22 21:31 Respiratory Rate 22 02/19/22 21:31 Blood Pressure 172/99 H 02/19/22 21:31 Pulse Oximetry 98 02/19/22 21:31 Oxygen Delivery Method 02/19/22 21:31 Course Orders Ordered: Discontinued Medications Olanzapine (Olanzapine Odt 10 Mg Tab) 10 mg PO NOW ONE Stop: 02/19/22 21:25 Last Admin: 02/19/22 21:42 Dose: 10 mg Documented By: ALEXEY Olanzapine (Olanzapine Odt 10 Mg Tab) 20 mg PO NOW ONE Stop: 02/19/22 21:25 Last Admin: 02/19/22 21:42 Dose: 20 mg Documented By: ALEXEY Vital Signs Vital signs: Vital Signs - 8 hr 02/19/22 21:31 Temperature 98.9 F Pulse Rate 95 H Respiratory Rate 22 Blood Pressure 172/99 H Pulse Oximetry 98 Oxygen Delivery Method Room Air MDM - Psych MDM Narrative Medical decision making narrative: 42-year-old female smoker with history of schizophrenia and illicit drug use presents under very similar circumstances to multiple prior visits. She has no suicidal or homicidal ideation, she is taking care of herself and has a place to live, she is been eating and drinking and taking her medications. She feels her typical paranoia and is requesting a dose of olanzapine, once administered the medication she states she would prefer not to stay any longer and wants to go home. She has the capacity to make this decision and demonstrates no evidence of grave disability. She is given return precautions and questions have been answered to her apparent satisfaction Discharge Plan Departure Patient Disposition: Left Against Medical Advice Clinical Impression: Left against medical advice Prescriptions: No Action Unobtainable Stand Alone Forms: Against Medical Advice
[2022-02-19] MEDS: OLANZapine ODT 10 MG TAB 20 MG PO (21:42)
[2022-02-19] MEDS: OLANZapine ODT 10 MG TAB PO (21:42)
== END 2022-02-19 21:48 | disposition left against medical advice (07) ==
PROVIDERS: Emergency Provider Emergency Medicine; Family Provider Family Medicine; PCP Family Medicine
DX: F20.9 Schizophrenia, unspecified (principal)
CPT/HCPCS: 99283

== ENCOUNTER 2022-02-20 19:07 | Emergency (ER) | payer OTHER, MEDICAID, SELFPAY ==
[2022-02-20 19:12] VITALS: BP 185/98; PULSE 103; RESP 18; TEMP 36.9; O2SAT 99; BMI 26.6
[2022-02-20] MEDS: OLANZapine ODT 10 MG TAB 20 MG PO (19:21)
[2022-02-20] MEDS: OLANZapine ODT 10 MG TAB PO (19:21)
--- NOTE | 2022-02-20 20:11 | ED.PSYCH ---
HPI - Psych General Chief Complaint: Psychiatric Symptoms Stated Complaint: Feels like someone chasing her Time Seen by Provider: 02/20/22 19:18 Source: patient Mode of arrival: Ambulatory History of Present Illness HPI Narrative: 42-year-old female smoker with history of schizophrenia and methamphetamine abuse is known well to myself and staff presents with the chief complaint of feeling a bit paranoid like somebody is chasing her. She denies suicidal or homicidal ideation. She states that she has been able to eat and drink and care for herself. She states that she has been having trouble accessing her chronic medications and that the PACT team has not been as reliable as she is used to. She states she expects to see them tomorrow morning. She denies other symptoms such as dizziness or lightheadedness. She has no fever or chills. She denies sore throat, cough or chest pain. She has no trouble breathing and denies abdominal pain or urinary complaints Related Data Home Medications Medication Instructions Recorded Confirmed Unobtainable 09/29/20 09/29/20 Allergies Allergy/AdvReac Type Severity Reaction Status Date / Time No Known Drug Allergies Allergy Verified 02/20/22 19:12 Review of Systems Review of Systems Narrative: GENERAL: Denies chills, fatigue, malaise, fever, sweats. HEENT: Denies sinus pain, ear pain, sore throat, difficulty swallowing, dizziness. RESPIRATORY: Denies dyspnea, cough, wheezing, hemoptysis, sputum. CARDIOVASCULAR: Denies chest pain, palpitations, orthopnea, edema, GASTROINTESTINAL: Denies nausea, vomiting, abdominal pain, diarrhea, constipation, melena. : Denies dysuria, frequency, incontinence, hematuria, urinary retention. MUSCULOSKELETAL: denies weakness, joint pain, or bony pain SKIN: Denies rash, skin lesions, or other NEUROLOGIC: Denies weakness, headache, numbness, change in speech, confusion, seizures, incoordination. PSYCHIATRIC: see HPI 12 point review of systems is negative except for those stated above Patient History Medical History Drug abuse Schizophrenia Social History Smoking Status: Current every day smoker Smoking Status: Current every day smoker tobacco type: cigarettes alcohol intake frequency: other Substance Use Type: methamphetamine and unknown Exam Narrative Exam Narrative: GENERAL: [42] year old patient appears stated age. Well-developed patient, in mild distress. A bit anxious but alert and oriented, speaking clearly and walking a straight line, demonstrates capacity HEAD: Atraumatic. Normocephalic. EYES: Pupils equal round and reactive. Extraocular motions intact. No scleral icterus. No injection or drainage. ENT: Nose without bleeding, purulent drainage. Throat without erythema, tonsillar hypertrophy or exudate. Airway patent. NECK: Trachea midline. Non tender CARDIOVASCULAR: Regular rate and rhythm without murmurs, gallops, or rubs. RESPIRATORY: Clear to auscultation. Breath sounds equal bilaterally. No wheezes, rales, or rhonchi. GASTROINTESTINAL: Abdomen soft, non-tender, nondistended. EXTREMITIES: No edema or joint tenderness. BACK: Nontender without deformity or crepitance. No flank tenderness. NEURO: AOx3. SKIN: No rash or erythema of visible areas Initial Vital Signs Initial Vital Signs: Vital Signs Temperature 98.4 F 02/20/22 19:12 Pulse Rate 103 H 02/20/22 19:12 Respiratory Rate 18 02/20/22 19:12 Blood Pressure 185/98 H 02/20/22 19:12 Pulse Oximetry 99 02/20/22 19:12 Oxygen Delivery Method 02/20/22 19:12 Course Orders Ordered: ED Orders 02/20/22 20:07 Consult to LAW OFFICE RECEPTIONIST - Field [employer] Basic Stat Discontinued Medications Olanzapine (Olanzapine Odt 10 Mg Tab) 10 mg PO NOW ONE Stop: 02/20/22 19:19 Last Admin: 02/20/22 19:21 Dose: 10 mg Documented By: ALEXEY Olanzapine (Olanzapine Odt 10 Mg Tab) 20 mg PO NOW ONE Stop: 02/20/22 19:19 Last Admin: 02/20/22 19:21 Dose: 20 mg Documented By: ALEEXY Vital Signs Vital signs: Vital Signs - 8 hr 02/20/22 19:12 Temperature 98.4 F Pulse Rate 103 H Respiratory Rate 18 Blood Pressure 185/98 H Pulse Oximetry 99 Oxygen Delivery Method Room Air Discharge Plan Departure Patient Disposition: Home Clinical Impression: Chronic schizophrenia Instructions: DI for Schizophrenia Activity Restrictions/Additional Instructions: There is no evidence of an emergent or life threatening illness at this time, but follow up with your doctor in 1-2 days is recommended nonetheless to continue to rule out serious underlying causes of your symptoms. Please call the office for an appointment. Please return to the Emergency Department for any worsening or persistent symptoms. Please take medications as directed. Prescriptions: No Action Unobtainable Referrals: Ele Rodgers MD [Primary Care Provider] - Visit Report Forms: Patient Portal/API
--- NOTE | 2022-02-20 20:13 | CM.SWNOTE ---
PARACHUTE MENDER Brief Note PARACHUTE MENDER briefly met with patient who is familiar face to ED due to concern due to hx of Methamphetamine use and Schizophrenia. Patient presents as lucid and calm but presenting with response to internal stimuli. ED senior solutions architect provides patient with daily Zyprexa 30 mg prescription in triage. Patient endorses she is not certain if she wants to stay in ED or not. PARACHUTE MENDER reviews above with ED provider who requests to meet with patient prior to her leaving. PARACHUTE MENDER informs Community Floral Clerk regarding patient's presentation to the ED this evening, this is patient's 4th presentation to ED since 02/17/22. Plan: Patient likely to d/c to community upon medical clearance, Community Floral Clerk and PACT team to f/u with patient. Roselyn Michel, POLICE DETENTION ATTENDANT
--- NOTE | 2022-02-20 20:20 | PC.NURSE ---
Pt was seen in room [address] Dupree. Pt has a plan for medications tomorrow. Pt calm/cooperative,alert/oriented.
== END 2022-02-20 20:20 | disposition home or self-care (01) ==
PROVIDERS: Emergency Provider Emergency Medicine; Family Provider Family Medicine; PCP Family Medicine
DX: F20.9 Schizophrenia, unspecified (principal)
CPT/HCPCS: 99283

== ENCOUNTER 2022-02-21 11:38 | Emergency (ER) | payer OTHER, MEDICAID, SELFPAY ==
[2022-02-21 11:55] VITALS: BP 232/102; PULSE 121; RESP 16; TEMP 36.4; O2SAT 98
[2022-02-21] MEDS: HALOPERIDOL 5 MG/ML VIAL IM (12:08)
[2022-02-21 12:37] VITALS: BP 204/118; PULSE 121; RESP 24; O2SAT 97
--- NOTE | 2022-02-21 12:45 | PC.NURSE ---
Pt educated on orders for lab draw and urine, pt declines.
--- NOTE | 2022-02-21 12:48 | ED.PSYCH ---
HPI - Psych General Chief Complaint: Psychiatric Symptoms Stated Complaint: mental issues Time Seen by Provider: 02/21/22 11:54 Source: patient, old records reviewed and police Mode of arrival: Ambulatory Limitations: no limitations History of Present Illness HPI Narrative: This is a 42-year-old female with complaint of chronic schizophrenia. Patient has been here 3 days in a row she has received 30 mg olanzapine each day which is her regular dose. She does follow with the PACT team and has had multiple inpatient hospitalizations and is known to also abuse amphetamines. She was brought here by PD after being disruptive at a local business, she has not been physically aggressive she arrived shouting and screaming in the department. She was reportedly quite calm last night and the night before and self presented at that time. Community lumber estimator Jose Alfredo Esqueda arrived and is at bedside with patient as well as our REGIONAL MAINTENANCE MANAGER. Patient calmed shortly after being told she would have a shot of IM Haldol which is what she is requesting. She did not answer questions for me initially during this. But after being told she would received the medication become much more calm. She does appear to have external stimuli. She is not endorsing any suicidal or homicidal ideation at this time. Related Data Home Medications Medication Instructions Recorded Confirmed Unobtainable 09/29/20 09/29/20 Allergies Allergy/AdvReac Type Severity Reaction Status Date / Time No Known Drug Allergies Allergy Verified 02/21/22 11:55 Review of Systems Review of Systems ROS Unobtainable: All systems reviewed & are unremarkable except as noted in HPI and below Patient History Medical History Drug abuse Schizophrenia Social History Smoking Status: Current every day smoker Smoking Status: Current every day smoker tobacco type: cigarettes alcohol intake frequency: other Substance Use Type: methamphetamine and unknown Exam Narrative Exam Narrative: GENERAL: Alert and oriented, disheveled female shouting and yelling. Patient is ambulating into the department. She was brought to the java front end web developer by EMS and registered. HEENT: Head normocephalic, atraumatic, EOMI, pupils reactive, face symmetric, moist mucous membranes NECK: Supple, full range of motion CARDIOVASCULAR: Regular rate and rhythm without murmurs, rubs or gallops. RESPIRATORY: Breath sounds equal bilaterally, no wheezes rales or rhonchi. ABDOMEN: Soft, nontender. Normoactive bowel sounds all 4 quadrants. No guarding or rebound, rigidity, no mass : No CVA tenderness EXTREMITIES: Normal range of motion, no clubbing or edema. Neurovascularly intact NEUROLOGICAL: Cranial nerves II through XII grossly intact. Moving all extremities SKIN: Warm, dry, no petechiae, no rashes or lesions PSYCH: No suicidal or homicidal ideation. Patient does appear to have some external stimuli. She calms after being told she can have a dose of IM medication. She is more conversant after that. Initial Vital Signs Initial Vital Signs: Vital Signs Temperature 97.6 F 02/21/22 11:55 Pulse Rate 121 H 02/21/22 11:55 Respiratory Rate 16 02/21/22 11:55 Blood Pressure 232/102 H 02/21/22 11:55 Pulse Oximetry 98 02/21/22 11:55 Oxygen Delivery Method 02/21/22 11:55 Course Orders Ordered: ED Orders 02/21/22 11:59 Consult to REGIONAL MAINTENANCE MANAGER - Geospatial Technologist Stat Discontinued Medications Haloperidol (Haloperidol 5 Mg/Ml Vial) 5 mg IM NOW ONE Stop: 02/21/22 12:06 Last Admin: 02/21/22 12:08 Dose: 5 mg Documented By: RAI Olanzapine (Olanzapine Odt 10 Mg Tab) 20 mg PO NOW ONE Stop: 02/21/22 13:06 Last Admin: 02/21/22 13:12 Dose: 20 mg Documented By: RAI Olanzapine (Olanzapine Odt 10 Mg Tab) 10 mg PO NOW ONE Stop: 02/21/22 13:06 Last Admin: 02/21/22 13:12 Dose: 10 mg Documented By: RAI Vital Signs Vital signs: Vital Signs - 8 hr 02/21/22 11:55 02/21/22 12:37 02/21/22 14:25 Temperature 97.6 F Pulse Rate 121 H 121 H 66 Respiratory Rate 16 24 18 Blood Pressure 232/102 H 204/118 H 190/101 H Pulse Oximetry 98 97 95 Oxygen Delivery Method Room Air Room Air Room Air MDM - Psych MDM Narrative Medical decision making narrative: Patient is much more calm after potentially receiving IM medication and was given here in the department she is had her regular doses for the past 3 days and has been persistent in her symptomatology. She does have a lesser restraining order in place plan for goal for medical clearance. Patient with REGIONAL MAINTENANCE MANAGER and community lumber estimator here. She would like her regular dose of oral medication as well and after further evaluation is requesting to leave. Patient is not clearly a threat to herself or others at this time. Discharge Plan Departure Patient Disposition: Home Clinical Impression: Chronic schizophrenia Instructions: DI for Schizophrenia Activity Restrictions/Additional Instructions: Please meet with your PACT team today at your appointment at 3:45pm. You have had a regular dose of your medication daily for the past 4 days. Please return at any time for assistance, if you are having thoughts of harming yourself or others or if you feel unsafe Prescriptions: No Action Unobtainable Referrals: Ele Rodgers MD [Primary Care Provider] - Visit Report Forms: Patient Portal/API
--- NOTE | 2022-02-21 13:09 | CM.SWNOTE ---
PANTOGRAPH SETTER Brief Note PANTOGRAPH SETTER briefly met with pt, who is a familiar face to ED due to hx of methamphetamine use and schizophrenia. Pt was brought to ED by Isaac DENNISON due to disruption in local cafe. Pt presents as labile, occasionally able to stay calm but pacing and responding to internal stimuli at other times. At times patient states, I'm scared, help me, help me! Pt responds to redirection. Pt provided 5mg of haldol IM. Pt did not calm within 1 hour so she was given her daily zyprexa 30mg. Pt refusing blood draw at this time. PANTOGRAPH SETTER called pt's PACT team and left a voicemail. Community Card Hand arrived at ED and sat with pt for awhile to help calm her. This is pt's 5th presentation to ED since 02/17/22. Plan: SW discussed with ED Provider and pt has received her daily dose of zyprexa 30mg the last few days. Pt does not appear stable on daily medication, therefore SW will likely call DCR when pt is medically cleared. WYATT Luna
[2022-02-21] MEDS: OLANZapine ODT 10 MG TAB 20 MG PO (13:12)
[2022-02-21] MEDS: OLANZapine ODT 10 MG TAB PO (13:12)
[2022-02-21 14:25] VITALS: BP 190/101; PULSE 66; RESP 18; O2SAT 95
== END 2022-02-21 14:25 | disposition home or self-care (01) ==
PROVIDERS: Emergency Provider Emergency Medicine; Family Provider Family Medicine; PCP Family Medicine
DX: F20.9 Schizophrenia, unspecified (principal); F15.10 Other stimulant abuse, uncomplicated
CPT/HCPCS: J1630

== ENCOUNTER 2022-02-21 15:00 | Emergency (ER) | payer OTHER, MEDICAID, SELFPAY ==
[2022-02-21 15:25] VITALS: BP 177/105; PULSE 86; RESP 17; TEMP 37.2; O2SAT 96; BMI 24.2
[2022-02-21 15:51] LABS: Appearance Urine UA SL CLOUDY; Bilirubin Urine UA NEGATIVE (NEGATIVE); Color Urine UA YELLOW; Glucose Urine UA NEGATIVE (Negative); Ketones Urine UA NEGATIVE (NEGATIVE); Leukocyte Esterase Urine UA NEGATIVE (NEGATIVE); Nitrite Urine UA NEGATIVE (Negative); Occult Blood Urine UA NEGATIVE (Negative); Protein Urine UA 1+ (Negative); Specific Gravity Urine UA 1.015 (1.000-1.035); Urobilinogen Urine UA 0.2 E.U./dL (0.2)
[2022-02-21 15:54] LABS: UR Morphine/Opiate cutoff 300 Negative (Negative); Ur Creatinine Normal (Normal); Ur Specific Gravity Normal (Normal); Urine Amphetamines Positive (Negative); Urine Barbiturates Negative (Negative); Urine Benzodiazepines Negative (Negative); Urine Cocaine Negative (Negative); Urine MDMA Positive (Negative); Urine Methadone Negative (Negative); Urine Methamphetamines Positive (Negative); Urine Oxycodone Negative (Negative); Urine Phencyclidine Negative (Negative); Urine Tetrahydrocannabinol Negative (Negative); Urine Tricyclic Antidepressant Negative (Negative); Urine pH Normal (Normal)
[2022-02-21 16:08] LABS: COVID19 -Nasal RAPID Negative (Negative)
--- NOTE | 2022-02-21 16:10 | CM.SWNOTE ---
Addendum entered by WYATT Luna 02/21/22 17:43: SW discussed referral to [facility] with pt and she reports that she is agreeable. SW called [facility] at [phone] and connected patient with medical unit secretary Christine for an intake call. Christine called SW back and confirmed that they can accept pt tonight. Christine requested that SERGEY set up transport and informed SW that pt cannot arrive between 8-10pm. [facility] arranged S ambulance for [id number] to take pt to [facility]. Aditi Reeves, WYATT Original Note: APPLICATIONS SALES REPRESENTATIVE - Computer Operations Analyst Assessment APPLICATIONS SALES REPRESENTATIVE - Computer Operations Analyst Assessment Start: 02/21/22 15:45 Freq: Status: Active Protocol: Document 02/21/22 15:45 TM (Rec: 02/21/22 16:10 TM [id number]) APPLICATIONS SALES REPRESENTATIVE/Computer Operations Analyst Assessment Time Spent with Patient Start date 02/21/22 Visit Start Time 15:30 End date 02/21/22 Mental Health Screening Include Onset, Duration, Intensity Presenting Problem Pt presents to ED from community due to paranoid delusions that she is being followed/stalked. Precipitating Event(s) Pt has a history of schizophrenia and methampetamine use. Pt has visited this ED 4 times since 02/17 with similar presentation. Pt was recently discharged from inpatient psych unit at [facility] after a 16 day stay from 01/30/22-02/15/22. Per Peyton, pt has 48 ED visits within last year. Patient Strengths Pt has community supports with [facility], Community Manager People Jose Alfredo Esqueda, and PACT team. Current Behavioral Health Provider(s) [facility] PACT team. [place] Include Facility, Provider, Ph. # [place]. . Psych. Hx Mental Health and Chemical Patient has hx of Dependency methaphetamine use, psychosis, and paranoia. Family Hx of Behavioral Abuse None reported. Psychiatric Hospitalizations (date(s)/ Pt has extensive inpatient location) psychiatric stays over last several years. Pt was most recently discharged from [facility] on following a 16 night stay on unit. Psychosocial information & Support Pt is a 42 year old female Systems that resides in [facility]. Pt [facility]. Legal Concerns Legal Matters - Outstanding Issues None reported. Mental Status Orientation (Person/Place/Time) A&Ox3 Stated Mood Help me, help me, help me. Someone is trying to hurt me. Affect (Congruent with Mood?) Labile, responding to internal stimuli, paranoid delusions that she is being followed and that someone is going to hurt her. Thought Content - Specify/Describe Pt endorsing paranod delusions Obsessions, Delusions, Hallucinations that she is being followed and that someone is trying to hurt her. Pt responding to internal stimuli. Thought Processes (Kxwyrbd-Ndgkwljo-Anss tangential, repetitive. Jcmwvwln-Akzfsgsw-Zbzmjkmfnx- Xgfkwtyhxipxug-Paqicpb-Pyndvvkrjjos- Thought Blocking) Speech (Vsjezg-Uzyp-Bvbnnbn-Rapid-Soft- pressured, soft. Loud-Pressured) Motor (Cdalbp-Lrdglgbwr-Htbs-Other) Pt unable to sit still. Pt repeatedly stands up and paces around in effort to self soothe. Insight (Fgvm-Nkda-Gkyp/Limited) limited. Judgement (Hobs-Iiow-Rwsq/Limited) limited. Impulse Control (Adequate-Impaired) limited. Memory (Mkotcihhj-Cwohqg-Xgzqsd, intact, not formally tested. Impaired-Intact) Concentration (Intact-Impaired) intact. Attention (Intact-Impaired) intact. Behavior (Appropriate-Inappropriate) appropriate, pt is redirectable and cooperative. Risk Assessment Suicidal Ideation (Plan) No Homicidal Ideation (Plan) No Intervention Intervention SERGEY and PACT body service team member Zev met pt at bedside to assess and discuss treatment options. Pt is agreeable to bed at crisis respite center. Pt reports that she does not feel safe in her current environment. SERGEY discussed with ED provider, who is agreeable to voluntary, crisis respite bed. Plan RA Plan SERGEY will refer pt to [facility].
[2022-02-21 16:13] LABS: Add Manual Diff / Slide Review NO; Basophils Absolute Auto 100 /uL (0-100); Basophils Percent Auto 0.8 % (0-2); Eosinophils Absolute Auto 0 /uL (0-450); Eosinophils Percent Auto 0.2 % (2-4); Hematocrit 35.1 % (36-46); Hemoglobin 11.8 g/dL (12.0-16.0); Lymphocytes Absolute Auto 900 /uL (1100-4500); Lymphocytes Percent Auto 9.1 % (25-40); Mean Corpuscular HGB Conc 33.6 % (30-36); Mean Corpuscular Hemoglobin 27.6 PG (26-34); Monocytes Absolute Auto 500 /uL (0-900); Monocytes Percent Auto 4.8 % (3-14); Neutrophils Absolute Auto 8800 /uL (1500-7000); Neutrophils Percent Auto 85.1 % (50-75); Platelet Count 473 X10^3/uL (150-400); Red Blood Cell Count 4.28 X10^6/uL (4.0-5.2); Red Cell Distribution Width 15.9 % (11.6-14.8); White Blood Cell Count 10.4 X10^3/uL (4.5-11.0)
[2022-02-21 16:21] LABS: Acetaminophen < 10 ug/mL (10-30); Alanine Aminotransferase 15 IU/L (<35); Albumin 4.5 g/dL (3.5-5.0); Albumin Globulin Ratio 1.3 (1.0-2.8); Alkaline Phosphatase 74 U/L (38-126); Aspartate Aminotransferase 25 IU/L (14-36); BUN Creatinine Ratio 14.3 (6-22); Bilirubin Total 0.8 mg/dL (0.2-1.3); Blood Urea Nitrogen 14 mg/dL (7-17); Calcium 9.2 mg/dL (8.4-10.2); Carbon Dioxide 29 mmol/L (22-32); Chloride 97 mmol/L (98-107); Estimated Glomerular Filt Rate > 60 mL/min (>60); Ethanol (ETOH) < 10 mg/dL; Globulin 3.5 g/dL (1.7-4.1); Glucose 108 mg/dL (70-100); HEMOLYSIS < 15 (0-50); Potassium 3.7 mmol/L (3.4-5.1); Salicylate < 1.0 mg/dL (<20); Sodium 137 mmol/L (137-145)
--- NOTE | 2022-02-21 16:32 | ED_ITS ---
HPI - Psych General Chief Complaint: Psychiatric Symptoms Stated Complaint: doesn't feel safe Time Seen by Provider: 02/21/22 15:42 Source: patient Mode of arrival: Ambulatory Limitations: no limitations History of Present Illness HPI Narrative: This is a 42-year-old female with history of chronic schizophrenia patient was here earlier today seen by myself after discussion with DAIRY FARM OPERATOR, community project finance analyst and the patient she left and then returned very shortly afterwards. Patient has a PACT team and has had multiple inpatient hospitalization and has a history of amphetamine abuse. She was initially brought by police after being disruptive at a local business and being brought here for evaluation. She has not been physically aggressive she was shouting and screaming on her earlier visit today but is calm here at this time and asking to be seen again. Patient did receive Haldol IM as well as her usual olanzapine dose during her prior visit. She has received her daily olanzapine dose of 30 mg for the past 3 evenings and additional 4th day today. Related Data Home Medications Medication Instructions Recorded Confirmed Unobtainable 09/29/20 09/29/20 Allergies Allergy/AdvReac Type Severity Reaction Status Date / Time No Known Drug Allergies Allergy Verified 02/21/22 11:55 Review of Systems Review of Systems ROS Unobtainable: All systems reviewed & are unremarkable except as noted in HPI and below Patient History Medical History Drug abuse Schizophrenia Social History Smoking Status: Current every day smoker Smoking Status: Current every day smoker tobacco type: cigarettes alcohol intake frequency: other Substance Use Type: methamphetamine and unknown Exam Narrative Exam Narrative: GENERAL: Alert and oriented x three, disheveled female in mild distress. HEENT: Head normocephalic, atraumatic, EOMI, pupils reactive, face symmetric, moist mucous membranes NECK: Supple, full range of motion CARDIOVASCULAR: Regular rate and rhythm without murmurs, rubs or gallops. RESPIRATORY: Breath sounds equal bilaterally, no wheezes rales or rhonchi. ABDOMEN: Soft, nontender. Normoactive bowel sounds all 4 quadrants. No guarding or rebound, rigidity, no mass : No CVA tenderness EXTREMITIES: Normal range of motion, no clubbing or edema. Neurovascularly intact NEUROLOGICAL: Cranial nerves II through XII grossly intact. Moving all extremities SKIN: Warm, dry, no petechiae, no rashes or lesions. PSYCH: No suicidal homicidal ideation or intention. Patient is calm and redirectable currently. Initial Vital Signs Initial Vital Signs: Vital Signs Temperature 98.9 F 02/21/22 15:25 Pulse Rate 86 02/21/22 15:25 Respiratory Rate 17 02/21/22 15:25 Blood Pressure 177/105 H 02/21/22 15:25 Pulse Oximetry 96 02/21/22 15:25 Oxygen Delivery Method 02/21/22 15:25 Course Orders Ordered: ED Orders 02/21/22 15:27 Acetaminophen Stat Complete Blood Count AUTO DIFF Stat Comprehensive Metabolic Panel Stat Ethanol (ETOH) Stat Free T4, Direct Thyroxine Stat Salicylate Stat Thyroid Stimulating Hormone Stat 02/21/22 15:43 COVID19 -Nasal RAPID/Pre-Proc Stat Urinalysis and Microscopic Stat Urine Culture Stat Urine Drug Screen, Rapid Stat 02/21/22 15:47 Consult to DAIRY FARM OPERATOR - Education Department Chair Stat Vital Signs Vital signs: Vital Signs - 8 hr 02/21/22 15:25 Temperature 98.9 F Pulse Rate 86 Respiratory Rate 17 Blood Pressure 177/105 H Pulse Oximetry 96 Oxygen Delivery Method Room Air MDM - Psych Lab Data Result diagrams: 02/21/22 15:27 02/21/22 15:27 Labs: Lab Results 02/21/22 02/21/22 02/21/22 Range/Units 15:27 15:27 15:27 WBC 10.4 (4.5-11.0) X10^3/uL RBC 4.28 (4.0-5.2) X10^6/uL Hgb 11.8 L (12.0-16.0) g/dL Hct 35.1 L (36-46) % MCV 82.0 (80-100) fL MCH 27.6 (26-34) PG MCHC 33.6 (30-36) % RDW 15.9 H (11.6-14.8) % Plt Count 473 H (150-400) X10^3/uL Neut % (Auto) 85.1 H (50-75) % Lymph % (Auto) 9.1 L (25-40) % [place] % (Auto) 4.8 (3-14) % Eos % (Auto) 0.2 L (2-4) % Baso % (Auto) 0.8 (0-2) % Neut # (Auto) 8800 H (5472-7852) /uL Lymph # (Auto) 900 L (7301-7312) /uL [place] # (Auto) 500 (0-900) /uL Eos # (Auto) 0 (0-450) /uL Baso # (Auto) 100 (0-100) /uL Sodium 137 (137-145) mmol/L Potassium 3.7 (3.4-5.1) mmol/L Chloride 97 L (98-107) mmol/L Carbon Dioxide 29 (22-32) mmol/L BUN 14 (7-17) mg/dL Creatinine 0.98 (0.52-1.04) mg/dL Estimated GFR > 60 (>60) mL/min BUN/Creatinine Ratio 14.3 (6-22) Glucose 108 H (70-100) mg/dL Calcium 9.2 (8.4-10.2) mg/dL Total Bilirubin 0.8 (0.2-1.3) mg/dL AST 25 (14-36) IU/L ALT 15 (<35) IU/L Alkaline Phosphatase 74 (38-126) U/L Total Protein 8.0 (6.3-8.2) g/dL Albumin 4.5 (3.5-5.0) g/dL Globulin 3.5 (1.7-4.1) g/dL Albumin/Globulin Ratio 1.3 (1.0-2.8) TSH 1.57 (0.47-4.68) uIU/mL Free T4 1.47 (0.78-2.19) ng/dL Urine Color Urine Appearance Urine pH (4.5-8.0) Ur Specific [place] (1.000-1.035) Urine Protein (Negative) Urine Glucose (UA) (Negative) g/dL Urine Ketones (NEGATIVE) Urine Occult Blood (Negative) Urine Nitrate (Negative) Urine Bilirubin (NEGATIVE) Urine Urobilinogen (0.2) E.U./dL Ur Leukocyte Esterase (NEGATIVE) Urine RBC (0-5/HPF) Urine WBC (0-5/HPF) Ur Squamous Epith Cells (0-5/HPF) Amorphous Sediment Urine Bacteria (None) Ur Culture Indicated? Salicylates < 1.0 (<20) mg/dL U Opiates 300ng/mL cut (Negative) Ur Oxycodone Screen (Negative) Urine Methadone Screen (Negative) Acetaminophen < 10 (10-30) ug/mL Ur Barbiturates Screen (Negative) U Tricyclic Antidepress (Negative) Ur Phencyclidine Scrn (Negative) Ur Amphetamines Screen (Negative) U Methamphetamines Scrn (Negative) Ur MDMA Scrn (Ecstasy) (Negative) U Benzodiazepines Scrn (Negative) Urine Cocaine Screen (Negative) U Marijuana (THC) Screen (Negative) Ethyl Alcohol < 10 ( - 10) mg/dL SARS-CoV-2 (PCR) (Negative) 02/21/22 02/21/22 02/21/22 Range/Units 15:43 15:43 15:43 WBC (4.5-11.0) X10^3/uL RBC (4.0-5.2) X10^6/uL Hgb (12.0-16.0) g/dL Hct (36-46) % MCV (80-100) fL MCH (26-34) PG MCHC (30-36) % RDW (11.6-14.8) % Plt Count (150-400) X10^3/uL Neut % (Auto) (50-75) % Lymph % (Auto) (25-40) % [place] % (Auto) (3-14) % Eos % (Auto) (2-4) % Baso % (Auto) (0-2) % Neut # (Auto) (9078-5901) /uL Lymph # (Auto) (4826-5371) /uL [place] # (Auto) (0-900) /uL Eos # (Auto) (0-450) /uL Baso # (Auto) (0-100) /uL Sodium (137-145) mmol/L Potassium (3.4-5.1) mmol/L Chloride (98-107) mmol/L Carbon Dioxide (22-32) mmol/L BUN (7-17) mg/dL Creatinine (0.52-1.04) mg/dL Estimated GFR (>60) mL/min BUN/Creatinine Ratio (6-22) Glucose (70-100) mg/dL Calcium (8.4-10.2) mg/dL Total Bilirubin (0.2-1.3) mg/dL AST (14-36) IU/L ALT (<35) IU/L Alkaline Phosphatase (38-126) U/L Total Protein (6.3-8.2) g/dL Albumin (3.5-5.0) g/dL Globulin (1.7-4.1) g/dL Albumin/Globulin Ratio (1.0-2.8) TSH (0.47-4.68) uIU/mL Free T4 (0.78-2.19) ng/dL Urine Color Yellow Urine Appearance Sl cloudy Urine pH 7.0 (4.5-8.0) Ur Specific [place] 1.015 (1.000-1.035) Urine Protein 1+ H (Negative) Urine Glucose (UA) Negative (Negative) g/dL Urine Ketones Negative (NEGATIVE) Urine Occult Blood Negative (Negative) Urine Nitrate Negative (Negative) Urine Bilirubin Negative (NEGATIVE) Urine Urobilinogen 0.2 (0.2) E.U./dL Ur Leukocyte Esterase Negative (NEGATIVE) Urine RBC None seen (0-5/HPF) Urine WBC 1-5/hpf (0-5/HPF) Ur Squamous Epith Cells 5-10 /hpf H (0-5/HPF) Amorphous Sediment 1+ Urine Bacteria Moderate (10-30) H (None) Ur Culture Indicated? Specimen cultured Salicylates (<20) mg/dL U Opiates 300ng/mL cut Negative (Negative) Ur Oxycodone Screen Negative (Negative) Urine Methadone Screen Negative (Negative) Acetaminophen (10-30) ug/mL Ur Barbiturates Screen Negative (Negative) U Tricyclic Antidepress Negative (Negative) Ur Phencyclidine Scrn Negative (Negative) Ur Amphetamines Screen Positive H (Negative) U Methamphetamines Scrn Positive H (Negative) Ur MDMA Scrn (Ecstasy) Positive H (Negative) U Benzodiazepines Scrn Negative (Negative) Urine Cocaine Screen Negative (Negative) U Marijuana (THC) Screen Negative (Negative) Ethyl Alcohol ( - 10) mg/dL SARS-CoV-2 (PCR) Negative (Negative) Point of Care Testing Test Results Negative Urine Dip Bedside Urine Glucose Negative Bedside Urine Bilirubin - Negative Bedside Urine Ketone - Negative Urine Specific [place] 1.025 Bedside Urine Occult Blood - Negative Bedside Urine pH 6.5 Bedside Urine Protein + 30 Bedside Urine Urobilinogen - Negative Bedside Urine Nitrite - Negative Bedside Urine Leukocytes - Negative Esterase MDM Narrative Medical decision making narrative: Patient was seen earlier today we discussed that if she return would seek placement as she will not far from her baseline does have chronic schizophrenia as well as substance abuse and has had multiple inpatient stays. Patient re- presented she is been calm, she did allow for blood draw, urine screening and COVID swab she is currently medically cleared. DAIRY FARM OPERATOR has seen the patient. Patient had bed found at [facility] and is voluntary at this time, she did perform intake and is willing. Patient's PACT team was present today in the ER. Discharge Plan Departure Patient Disposition: Released, Other Clinical Impression: Chronic schizophrenia Activity Restrictions/Additional Instructions: If you feel you need to go to [facility] Crisis[facility]Detox Center. Call had of time ([phone]) to inquire about an available bed. If there are no beds called daily and 9 AM and 9 PM to check on bed availability. If you're feeling suicidal or having suicidal thoughts, contact the suicide hotline: . Go directly to the crisis/detox center. Take the prescribed medications for your symptoms. Medications will be dispensed by the staff there. If you leave the Center you CANNOT take the extra medication home with you. Prescriptions: No Action Unobtainable Referrals: Ele Rodgers MD [Primary Care Provider] -
[2022-02-21 16:34] LABS: Amorphous Sediment Urine 1+; Bacteria Urine Moderate (10-30); Culture Indicated Urine Specimen Cultured; RBC Urine None Seen (0-5/HPF); Squamous Epithelial Cell Urine 5-10 /HPF (0-5/HPF); WBC Urine 1-5/HPF (0-5/HPF)
[2022-02-21 17:00] LABS: Free T4, Direct Thyroxine 1.47 ng/dL (0.78-2.19)
[2022-02-21 17:14] LABS: Thyroid Stimulating Hormone 1.57 uIU/mL (0.47-4.68)
--- NOTE | 2022-02-21 17:21 | PC.NURSE ---
ESTATE PLANNING ATTORNEY at bedside, patient sitting up on stretcher, on phone.
--- NOTE | 2022-02-21 18:19 | PC.NURSE ---
Report called to Rosibel Pope, updated on ETA.
== END 2022-02-21 19:15 | disposition home or self-care (01) ==
PROVIDERS: Emergency Provider Emergency Medicine; Family Provider Family Medicine; PCP Family Medicine
DX: F20.9 Schizophrenia, unspecified (principal); Z20.822 Contact with and (suspected) exposure to COVID-19; F15.10 Other stimulant abuse, uncomplicated
CPT/HCPCS: 80053; 80305; 80320; 80329; 81001; 81003; 81025; 84439; 84443; 85025; 87086; 87635; 96372; 99283; 99284; C9803; G0480; J1630

== ENCOUNTER 2022-02-25 15:28 | Emergency (ER) | payer OTHER, MEDICAID, SELFPAY ==
[2022-02-25 15:35] VITALS: BP 212/114; PULSE 103; RESP 16; TEMP 36.8; O2SAT 98
--- NOTE | 2022-02-25 16:01 | ED_ITS ---
HPI - Psych General Chief Complaint: Psychiatric Symptoms Stated Complaint: wants meds/someone to talk to Time Seen by Provider: 02/25/22 15:48 Source: EMS Mode of arrival: EMS History of Present Illness HPI Narrative: 42-year-old female. Well known to myself. Is brought in by EMS after she contacted 911. This morning she left against medical advice from [facility]. She has a hotel. She went and checked into the hotel. She states she got scared and contacted 911. Stated she wanted to come here to the emergency department. Related Data Home Medications Medication Instructions Recorded Confirmed Unobtainable 09/29/20 09/29/20 Allergies Allergy/AdvReac Type Severity Reaction Status Date / Time No Known Drug Allergies Allergy Verified 02/21/22 11:55 Review of Systems Constitutional Constitutional: Reports system reviewed and no additional complaints, except as documented Psychiatric Psychiatric: Reports system reviewed and no additional complaints, except as documented Hematologic/Lymphatic On Anticoagulants: No Patient History Medical History Drug abuse Schizophrenia Social History Smoking Status: Current every day smoker Smoking Status: Current every day smoker tobacco type: cigarettes alcohol intake frequency: other Substance Use Type: methamphetamine and unknown Exam Initial Vital Signs Initial Vital Signs: Vital Signs Temperature 98.2 F 02/25/22 15:35 Pulse Rate 103 H 02/25/22 15:35 Respiratory Rate 16 02/25/22 15:35 Blood Pressure 212/114 H 02/25/22 15:35 Pulse Oximetry 98 02/25/22 15:35 Oxygen Delivery Method 02/25/22 15:35 HENMT Head: normal to inspection and normocephalic Resp Effort & Inspection: normal respiratory effort Cardio Rate: regular rate Neuro General: patient alert, patient awake and moves all extremities Speech: speech normal Gait: normal gait Extrem General: normal to inspection Psych Appearance: disheveled Speech and Movement: speech and movement normal Mood: congruent mood and No angry Affect: normal affect Course Orders Ordered: ED Orders 02/25/22 15:35 Consult to SUSTAINABLE COMMUNITIES DESIGNER - High School Coordinator Stat Discontinued Medications Olanzapine (Olanzapine Odt 10 Mg Tab) 30 mg PO NOW ONE Stop: 02/25/22 16:30 Last Admin: 02/25/22 16:49 Dose: 30 mg Documented By: ALEXEY Vital Signs Vital signs: Vital Signs - 8 hr 02/25/22 15:35 Temperature 98.2 F Pulse Rate 103 H Respiratory Rate 16 Blood Pressure 212/114 H Pulse Oximetry 98 Oxygen Delivery Method Room Air MDM - Psych MDM Narrative Medical decision making narrative: Patient was seen by social work. I gave her a dose of her olanzapine. Social work discuss the case with the PACT team who will see her tomorrow at 0400 hours. The patient was informed of this. Will discharge patient Discharge Plan Departure Patient Disposition: Home Clinical Impression: Chronic schizophrenia Instructions: DI for Schizophrenia Activity Restrictions/Additional Instructions: The PACT team is scheduled to meet you tomorrow at 4 o'clock in the afternoon. Prescriptions: No Action Unobtainable Referrals: Ele Rodgers MD [Primary Care Provider] -
[2022-02-25] MEDS: OLANZapine ODT 10 MG TAB 30 MG PO (16:49)
--- NOTE | 2022-02-25 17:54 | CM.SWNOTE ---
SENIOR RECRUITMENT CONSULTANT Note Patient presents to ED via EMS with Community Roadmaster Jose Alfredo Esqueda present. It is reported that patient called 911 due to concern for needing her daily medication and concern for safety due to paranoia. Patient is 42 y/o female, familiar face to ED due to Methamphetamine use and Schizophrenia hx. Patient has hx of 8 ED encounters at 3 hospitals in the last week, 55 ED encounters within the last year. Patient presents as euthymic calm, communicative, and A/Ox3. Patient endorses she is scared and feels safe when she is at the ED. Patient endorses she does not want to transfer to another hospital, patient endorses she wants medication to help her feel better. Per Jose Alfredo Esqueda, he called PACT team upon patient's 911 call and they recommended bringing patient to ED and seeking [facility]/MH respite bed for patient. SENIOR RECRUITMENT CONSULTANT calls PACT team (Ph. # [phone]) and they report that they were not able to see patient today or recently. Tiara with [facility] PACT team production planning supervisor clinician (Ph. # [phone]) It is reported they call her hotel, her hotel room and call Nandini at [facility] and leave if they cannot find patient. PACT team states they are unable to meet with patient today but can meet with patient tomorrow at 4pm at her hotel, they confirm patient's daily medication of 30 mg of Olanzapine. Per patient's report, Tomas and records from her d/c, patient was transferred to [facility] for MH crisis stabilization bed on 02/21/22 after recent ED encounter, [facility] called 911 and patient was transferred to [facility] due to patient's paranoia and patient was transferred to [facility] on a voluntary basis from 02/23/22 through 02/24/22. d/c paperwork from [facility] that patient left hospital AMA and received a bus pass back to the community. D/C paperwork states rx recommendation for 4mg of nightly Risperidone. Patient endorses she felt unsafe upon return to her hotel today at [employer]. SENIOR RECRUITMENT CONSULTANT reviews all of this information with PACT team. Patient endorses that she is planning to go to 12 step meetings at [facility], and would like to meet with Nandini at [facility] to try to get residence at the [facility] in [place]. Patient endorses she was provided a phone from Nandini at [facility] for emergency calls only and patient uses hotel phone for other calls. Patient denies recent Meth use and states her last use was a few weeks ago. SENIOR RECRUITMENT CONSULTANT sees patient's gongora when she is sorting through belongings. SENIOR RECRUITMENT CONSULTANT asks about [facility] food stamps and gongora assistance, patient states she is in process of securing those benefits after applying for food stamps a month ago. SENIOR RECRUITMENT CONSULTANT encourages patient to go to [facility] office in [place] to set up benefits. Patient endorses she is too scared to sit alone and Community Roadmaster, this SENIOR RECRUITMENT CONSULTANT or [facility] [place] with patient. Patient continues to endorse concern for safety even after being provided daily dose of medication. Patient is medically clear for d/c, SENIOR RECRUITMENT CONSULTANT informs patient of meeting with PACT team at her motel tomorrow at 1600. Patient endorses concern for safety upon d/c but is agreeable to taxi transportation to her motel. It is the opinion of this SENIOR RECRUITMENT CONSULTANT that patient would benefit in community meeting with all of patient's supports and service providers to discuss an optimal POC for patient. Plan: Patient to d/c to hotel room at [facility], patient to f/u with PACT team tomorrow, patient to f/u with [facility] and Community Roadmaster for further outpatient needs. Roselyn Michel, WATERWORKS SUPERVISOR
[2022-02-25 18:22] VITALS: BP 173/97; PULSE 94; RESP 14; O2SAT 99
== END 2022-02-25 18:45 | disposition home or self-care (01) ==
PROVIDERS: Emergency Provider Emergency Medicine; Family Provider Family Medicine; PCP Family Medicine
DX: F20.9 Schizophrenia, unspecified (principal)
CPT/HCPCS: 99283

== ENCOUNTER 2022-02-25 19:04 | Emergency (ER) | payer OTHER, MEDICAID, SELFPAY ==
[2022-02-25 19:37] VITALS: BP 144/104; PULSE 85; RESP 16; TEMP 36.5; O2SAT 100; BMI 26.2
[2022-02-26 03:52] VITALS: BP 139/90; PULSE 84; RESP 18; O2SAT 98
[2022-02-26 05:28] VITALS: BP 141/84; PULSE 88; RESP 17; O2SAT 97
--- NOTE | 2022-02-27 12:47 | ED_ITS ---
HPI - Psych General Chief Complaint: Psychiatric Symptoms Stated Complaint: Not feeling okay Time Seen by Provider: 02/26/22 03:49 Source: patient Mode of arrival: Ambulatory History of Present Illness HPI Narrative: 42-year-old female smoker with history of schizophrenia and methamphetamine use is well known to myself and staff. She had just been discharged moments before deciding she wanted to check back in because she is continuing to hear voices. She denies suicidal or homicidal ideation. She had just received a dose of Zyprexa earlier in the day. She has a place to stay and is able to eat and drink without difficulty. She is well established with the local PACT Team. She has no headache or blurred vision. She denies runny nose, sore throat or cough. She has no chest pain or shortness of breath. She denies nausea, v omiting or diarrhea. She states she just feels more safe here. Related Data Home Medications Medication Instructions Recorded Confirmed Unobtainable 09/29/20 09/29/20 Allergies Allergy/AdvReac Type Severity Reaction Status Date / Time No Known Drug Allergies Allergy Verified 02/25/22 19:37 Review of Systems Review of Systems Narrative: GENERAL: Denies chills, fatigue, malaise, fever, sweats. HEENT: Denies sinus pain, ear pain, sore throat, difficulty swallowing, dizziness. RESPIRATORY: Denies dyspnea, cough, wheezing, hemoptysis, sputum. CARDIOVASCULAR: Denies chest pain, palpitations, orthopnea, edema, GASTROINTESTINAL: Denies nausea, vomiting, abdominal pain, diarrhea, constipation, melena. : Denies dysuria, frequency, incontinence, hematuria, urinary retention. MUSCULOSKELETAL: denies weakness, joint pain, or bony pain SKIN: Denies rash, skin lesions, or other NEUROLOGIC: Denies weakness, headache, numbness, change in speech, confusion, seizures, incoordination. PSYCHIATRIC: See HPI 12 point review of systems is negative except for those stated above Patient History Medical History Drug abuse Schizophrenia Social History Smoking Status: Current every day smoker Smoking Status: Current every day smoker tobacco type: cigarettes alcohol intake frequency: other Substance Use Type: methamphetamine and unknown Exam Narrative Exam Narrative: GENERAL: [42] year old patient appears stated age. Well-developed patient, in no obvious distress. Speaking clearly without slurring, walking a straight line, demonstrating capacity to make her own decisions HEAD: Atraumatic. Normocephalic. EYES: Pupils equal round and reactive. Extraocular motions intact. No scleral icterus. No injection or drainage. ENT: Nose without bleeding, purulent drainage. Throat without erythema, tonsillar hypertrophy or exudate. Airway patent. NECK: Trachea midline. Non tender CARDIOVASCULAR: Regular rate and rhythm without murmurs, gallops, or rubs. RESPIRATORY: Clear to auscultation. Breath sounds equal bilaterally. No wheezes, rales, or rhonchi. GASTROINTESTINAL: Abdomen soft, non-tender, nondistended. EXTREMITIES: No edema or joint tenderness. BACK: Nontender without deformity or crepitance. No flank tenderness. NEURO: AOx3. SKIN: No rash or erythema of visible areas Initial Vital Signs Initial Vital Signs: Vital Signs Temperature 97.7 F 02/25/22 19:37 Pulse Rate 85 02/25/22 19:37 Respiratory Rate 16 02/25/22 19:37 Blood Pressure 144/104 H 02/25/22 19:37 Pulse Oximetry 100 02/25/22 19:37 Oxygen Delivery Method 02/25/22 19:37 Course Course Course Narrative: Patient well known to myself and staff presents due to auditory hallucinations. She is demonstrating no signs of grave disability, she is not suicidal or homic idal. She does not wish to pursue hospitalization. There is no indication for any investigative labs or imaging. After sleeping she states she wants to go home. She does not want to see social work and confirms that she is not suicidal or homicidal. She understands that the PACT team will see her later this morning Discharge Plan Departure Patient Disposition: Home Clinical Impression: Chronic schizophrenia Instructions: DI for Schizophrenia Activity Restrictions/Additional Instructions: There is no evidence of an emergent or life threatening illness at this time, but follow up with your doctor in 1-2 days is recommended nonetheless to continue to rule out serious underlying causes of your symptoms. Please call the office for an appointment. Please return to the Emergency Department for any worsening or persistent symptoms. Please take medications as directed. Prescriptions: No Action Unobtainable Referrals: Ele Rodgers MD [Primary Care Provider] - Visit Report Forms: Patient Portal/API
== END 2022-02-26 05:29 | disposition home or self-care (01) ==
PROVIDERS: Emergency Provider Emergency Medicine; Family Provider Family Medicine; PCP Family Medicine
DX: F20.9 Schizophrenia, unspecified (principal)
CPT/HCPCS: 99283

== ENCOUNTER 2022-03-08 22:39 | Emergency (ER) | payer OTHER, MEDICAID, SELFPAY ==
[2022-03-08 22:49] VITALS: BP 120/88; PULSE 106; RESP 20; TEMP 36.9; O2SAT 99; BMI 26.6
--- NOTE | 2022-03-09 01:16 | ED.PSYCH ---
HPI - Psych General Chief Complaint: Psychiatric Symptoms Stated Complaint: Feels like someone is chasing her Time Seen by Provider: 03/08/22 23:56 Source: patient Mode of arrival: Ambulatory Limitations: no limitations History of Present Illness HPI Narrative: This is a 42-year-old female with history of chronic schizophrenia and methamphetamine abuse known to myself and staff. Patient presents this evening concern for her safety. She states that she feels like someone is chasing her. This is fairly typical of her usual hallucinations. She denies suicidal or homicidal ideation. Patient is conversant, directable. She denies other symptoms currently. She is established with a local PACT team. She states they have been meeting, she is requesting medication to help her with her symptoms. She states she prefers a shot of IM medication over oral. Patient states that she is been staying mostly in [place] currently. She states her team will sometimes meet with her on the weekend, she is not entirely clear if they have a plan to meet later today. Related Data Home Medications Medication Instructions Recorded Confirmed Unobtainable 09/29/20 09/29/20 Allergies Allergy/AdvReac Type Severity Reaction Status Date / Time No Known Drug Allergies Allergy Verified 03/09/22 16:31 Review of Systems Review of Systems ROS Unobtainable: All systems reviewed & are unremarkable except as noted in HPI and below Patient History Medical History Drug abuse Schizophrenia Social History Smoking Status: Current every day smoker Smoking Status: Current every day smoker tobacco type: cigarettes alcohol intake frequency: other Substance Use Type: methamphetamine and unknown Exam Narrative Exam Narrative: GENERAL: Alert and oriented x three, 42-year-old female, well-developed, patient is anxious, patient's intermittently but speaking clearly. HEENT: Head normocephalic, atraumatic, EOMI, pupils reactive, face symmetric, moist mucous membranes NECK: Supple, full range of motion CARDIOVASCULAR: Regular rate and rhythm without murmurs, rubs or gallops. RESPIRATORY: Breath sounds equal bilaterally, no wheezes rales or rhonchi. ABDOMEN: Soft, nontender. Normoactive bowel sounds all 4 quadrants. No guarding or rebound, rigidity, no mass : No CVA tenderness EXTREMITIES: Normal range of motion, no clubbing or edema. Neurovascularly intact NEUROLOGICAL: Cranial nerves II through XII grossly intact. Moving all extremities. Normal gait. SKIN: Warm, dry, no petechiae, no rashes or lesions. PSYCH: Patient endorses hallucinations and paranoia, no suicidal ideation or homicidal ideation or intent. Patient answering questions appropriately appears competent to make choices at this time. She does not have significantly pressured speech. She appears to have capacity at this time. Initial Vital Signs Initial Vital Signs: Vital Signs Temperature 98.5 F 03/08/22 22:49 Pulse Rate 106 H 03/08/22 22:49 Respiratory Rate 20 03/08/22 22:49 Blood Pressure 120/88 03/08/22 22:49 Pulse Oximetry 99 03/08/22 22:49 Oxygen Delivery Method 03/08/22 22:49 Course Orders Ordered: Discontinued Medications Haloperidol (Haloperidol 5 Mg/Ml Vial) 5 mg IM NOW ONE Stop: 03/09/22 01:23 Last Admin: 03/09/22 01:47 Dose: 5 mg Documented By: LAVELLE Vital Signs Vital signs: Vital Signs - 8 hr 03/08/22 22:49 Temperature 98.5 F Pulse Rate 106 H Respiratory Rate 20 Blood Pressure 120/88 Pulse Oximetry 99 Oxygen Delivery Method Room Air MDM - Psych MDM Narrative Medical decision making narrative: This is a 42-year-old female known to myself with auditory hallucinations, requesting medication for her symptoms. Patient offered to meet with social work but I do not feel this time she is gravely disabled or requires involuntary hold. Patient slept through the night after receiving medications. Signed out to Dr. Watkins while waiting for her to awaken. Weather outside is very cold and felt appropriate to allow patient to sleep in department overnight. Discharge Plan Departure Patient Disposition: Home Clinical Impression: Chronic schizophrenia Activity Restrictions/Additional Instructions: Please meet with your PACT team this weekend and continue your medication. You may return if you are having worsening symptoms failure unsafe, have thoughts of harming yourself or others or need additional help. Prescriptions: No Action Unobtainable Referrals: Eel Rodgers MD [Primary Care Provider] - Visit Report Forms: Patient Portal/API
[2022-03-09] MEDS: HALOPERIDOL 5 MG/ML VIAL IM (01:47)
--- NOTE | 2022-03-09 01:58 | PC.NURSE ---
Patient given sandwich and juice as well as warm blanket for comfort. Encouraged to sleep
== END 2022-03-09 07:37 | disposition home or self-care (01) ==
PROVIDERS: Emergency Provider Emergency Medicine; Family Provider Family Medicine; PCP Family Medicine
DX: F20.9 Schizophrenia, unspecified (principal)
CPT/HCPCS: 96372; 99283; J1630

== ENCOUNTER 2022-03-09 16:25 | Emergency (ER) | payer OTHER, MEDICAID, SELFPAY ==
[2022-03-09 16:32] VITALS: BP 219/91; PULSE 92; RESP 16; TEMP 36.8; O2SAT 99; BMI 26.2
--- NOTE | 2022-03-09 16:47 | CM.SWNOTE ---
Addendum entered by WYATT Luna 03/09/22 17:39: SW received a call back from [facility] and they informed SW that they cannot accommodate this request due to short staffing. WYATT Luna Original Note: SERGEY ED Note Patient is 42 y/o female, familiar face to ED due to Methamphetamine use and Schizophrenia hx. Patient has extensive history of emergency room utilization for psychiatric crises. Pt presents today complaining that she is in fear. SW met pt at bedside and checked in. Pt behaving appropriately; sitting on bed with sandwich. Pt maintained eye contact and was not responding to internal stimuli. Pt reports that she has been staying at a halfway in [place] but they are closed tonight and tomorrow and she is looking for a safe place to stay. SW informed pt that she would reach out to her PACT team and the [facility], who previously provided motel vouchers for patient. SERGEY called [facility] and talked to Cassidy, who reports that there are currently no vacancies at the [facility], where pt has previously stayed. Cassidy reported that they are trying not to give this pt vouchers as often, as it is not a correction solution. Cassidy reports that pt's mental health needs exceed the capacity of their emergency halfway. Cassidy provided SERGEY with a list of cold weather shelters in the area. SERGEY called pt's PACT team and it went directly to voicemail. SW left voicemail requesting a call back. SW called [facility] regarding their overnight halfway. SW left a voicemail requesting a call back. SW received a call back from Jennifer at [facility] who reported that their halfway is full tonight but patient can go to [facility] if escorted by the PD. SW met with pt to see if she would be interested in that and pt reports that she might have a warrant out for her arrest but agrees to let SW check. SERGEY called the non emergency number for the [employer] [phone] and requested a ride for pt to [facility]. Dispatch reported that they put the request in and will have officers call me with an update. WYATT Luna
[2022-03-09] MEDS: OLANZapine ODT 10 MG TAB PO (16:59)
[2022-03-09] MEDS: OLANZapine ODT 10 MG TAB 20 MG PO (16:59)
--- NOTE | 2022-03-09 17:43 | PC.NURSE ---
assessment done by provider
--- NOTE | 2022-03-09 17:47 | ED.PSYCH ---
HPI - Psych <Harvey Dupree DO - Last Filed: 03/10/22 06:27> General Chief Complaint: Psychiatric Symptoms Stated Complaint: Scared Time Seen by Provider: 03/09/22 16:43 Source: patient Mode of arrival: Ambulatory History of Present Illness HPI Narrative: 42-year-old female smoker with history of schizophrenia and occasional methamphetamine use presents to the emergency department with a chief complaint of feeling fearful that someone might be chasing her. She is here very frequently under similar circumstances. She had historically been given Valtrex at a local motel but is currently homeless. She had been established with the PACT team who helped her get her meds but she states she is been off them the past few days. She denies suicidal or homicidal ideation. She denies fever chills nor nausea, vomiting or diarrhea. She has no chest pain or shortness of breath Related Data Home Medications Medication Instructions Recorded Confirmed Unobtainable 09/29/20 09/29/20 Allergies Allergy/AdvReac Type Severity Reaction Status Date / Time No Known Drug Allergies Allergy Verified 03/09/22 16:31 Review of Systems <Harvey Dupree DO - Last Filed: 03/10/22 06:27> Review of Systems Narrative: GENERAL: Denies chills, fatigue, malaise, fever, sweats. HEENT: Denies sinus pain, ear pain, sore throat, difficulty swallowing, dizziness. RESPIRATORY: Denies dyspnea, cough, wheezing, hemoptysis, sputum. CARDIOVASCULAR: Denies chest pain, palpitations, orthopnea, edema, GASTROINTESTINAL: Denies nausea, vomiting, abdominal pain, diarrhea, constipation, melena. : Denies dysuria, frequency, incontinence, hematuria, urinary retention. MUSCULOSKELETAL: denies weakness, joint pain, or bony pain SKIN: Denies rash, skin lesions, or other NEUROLOGIC: Denies weakness, headache, numbness, change in speech, confusion, seizures, incoordination. PSYCHIATRIC: See HPI 12 point review of systems is negative except for those stated above Patient History <Harvey Dupree DO - Last Filed: 03/10/22 06:27> Medical History Drug abuse Schizophrenia Social History Smoking Status: Current every day smoker Smoking Status: Current every day smoker tobacco type: cigarettes alcohol intake frequency: other Substance Use Type: methamphetamine and unknown Exam <Harvey Dupree, DO - Last Filed: 03/10/22 06:27> Narrative Exam Narrative: GEN: AOx3 and in no obvious distress. She is in no x3, GCS 15 EYES: Pupils are equal, round, and reactive to light and accommodation. Extraoccular muscles are intact bilaterally. There is no subconjunctival hemorrhage or exudate. CHEST: Lungs are clear to auscultation bilaterally and free of wheezes, rales, or rhonchi. Heart rate is regular rhythm, there are no murmurs, clicks, rubs, or gallops. There is no chest wall tenderness. ABD: Abdomen is soft and nontender. There is no guarding or rebound. Bowel sounds are normal in all 4 quadrants. There is no mass or organomegaly. EXT: Full painless ROM of all extremities with no loss of sensation or strength. SKIN: Warm, pink, and dry. No erythema or rash Initial Vital Signs Initial Vital Signs: Vital Signs Temperature 98.2 F 03/09/22 16:32 Pulse Rate 92 H 03/09/22 16:32 Respiratory Rate 16 03/09/22 16:32 Blood Pressure 219/91 H 03/09/22 16:32 Pulse Oximetry 99 03/09/22 16:32 Oxygen Delivery Method 03/09/22 16:32 <Cassidy Coleman, DO - Last Filed: 03/09/22 18:55> Initial Vital Signs Initial Vital Signs: Vital Signs Temperature 98.2 F 03/09/22 16:32 Pulse Rate 92 H 03/09/22 16:32 Respiratory Rate 16 03/09/22 16:32 Blood Pressure 219/91 H 03/09/22 16:32 Pulse Oximetry 99 03/09/22 16:32 Oxygen Delivery Method 03/09/22 16:32 Course <Harvey Dupree, DO - Last Filed: 03/10/22 06:27> Course Course Narrative: Patient no longer has access to the community support resources that were on some level helping to keep her stable. She has been evaluated by social work who was pushing for help getting her access to resources. At this time though she is not demonstrating evidence of grave disability, suicidal or homicidal ideation she is known well to myself and our staff and has no place to go or any support and is inappropriate to send back out on the street right now. She will likely stay in the emergency department overnight while we work on options for her. Orders Ordered: Discontinued Medications Olanzapine (Olanzapine Odt 10 Mg Tab) 10 mg PO NOW ONE Stop: 03/09/22 16:48 Last Admin: 03/09/22 16:59 Dose: 10 mg Documented By: NR Olanzapine (Olanzapine Odt 10 Mg Tab) 20 mg PO NOW ONE Stop: 03/09/22 16:48 Last Admin: 03/09/22 16:59 Dose: 20 mg Documented By: NR Vital Signs Vital signs: Vital Signs - 8 hr 03/10/22 06:16 Respiratory Rate 18 <Cassidyeboni Coleman, - Last Filed: 03/09/22 18:55> Orders Ordered: Discontinued Medications Olanzapine (Olanzapine Odt 10 Mg Tab) 10 mg PO NOW ONE Stop: 03/09/22 16:48 Last Admin: 03/09/22 16:59 Dose: 10 mg Documented By: NR Olanzapine (Olanzapine Odt 10 Mg Tab) 20 mg PO NOW ONE Stop: 03/09/22 16:48 Last Admin: 03/09/22 16:59 Dose: 20 mg Documented By: NR Vital Signs Vital signs: Vital Signs - 8 hr 03/10/22 06:16 Respiratory Rate 18 <Cassidy Nickie Coleman, - Last Filed: 03/09/22 18:55> MDM Narrative Medical decision making narrative: This is a 42-year-old female known to our department with chronic schizophrenia, patient is calm, the weather is quite cold outside and patient states she was scared requested a dose of IM antipsychotic which she has had before. Patient was able to sleep for sometime in the department and was signed but she was still sleeping at change of shift but is felt safe to discharge when she is ready. Discharge Plan Departure Patient Disposition: Home Clinical Impression: Chronic schizophrenia Instructions: DI for Schizophrenia Activity Restrictions/Additional Instructions: *You have been diagnosed with [chronic schizophrenia] *What to do: *Please continue to take your regular medications as directed. *Please follow up with your primary care provider in 2-3 days, call for an appointment. Let them know you were seen in the Emergency Department and that we ask that you be seen in follow up. We will electronically transmit a record of today's note if your PCP is in our system *If you do not have a primary care provider please contact the [facility] Resource line at [phone]. They will ask some questions about your medical history and help get you set up with a doctor in the community. *Return to Emergency Department if you should have any new, worsening or concerning symptoms, such as [fever greater than 101 F, shaking chills, worsening pain, persistent vomiting or other bothersome symptoms] Prescriptions: No Action Unobtainable Referrals: Ele Rodgers MD [Primary Care Provider] -
[2022-03-10 06:16] VITALS: RESP 18
[2022-03-10 08:34] VITALS: BP 140/81; PULSE 78; O2SAT 98
== END 2022-03-10 08:57 | disposition home or self-care (01) ==
PROVIDERS: Emergency Provider Emergency Medicine; Family Provider Family Medicine; PCP Family Medicine
DX: F20.9 Schizophrenia, unspecified (principal)
CPT/HCPCS: 99283

== ENCOUNTER 2022-04-10 14:08 | Emergency (ER) | payer OTHER, MEDICAID, SELFPAY ==
[2022-04-10 14:09] VITALS: BP 177/130; PULSE 97; RESP 16; TEMP 36.7; O2SAT 99; BMI 26.2
--- NOTE | 2022-04-10 14:50 | PC.NURSE ---
Pt left 1450 per security researcher
--- NOTE | 2022-04-10 14:54 | CM.SWNOTE ---
Addendum entered by Roselyn Michel 04/10/22 18:01: WAREHOUSE ADMINISTRATOR receives return call from PACT team. WAREHOUSE ADMINISTRATOR provides information about patient's d/c before being seen. Ruby with PACT team (Ph. # [phone]) reports that patient has been staying at the [facility] in [place] and patient has been receiving medication regularly with the exception of the last few days. It was reported that patient was positive for Covid at recent ED visit at [facility]. PACT team plans to continue to coordinate with patient at [facility] in [place]. JENNY Rogers Original Note: WAREHOUSE ADMINISTRATOR Note Patient is 42 y/o female, familiar face to ED due to Methamphetamine use and Schizophrenia hx. Patient has extensive history of emergency room utilization for psychiatric crises. Patient presents via EMS today due to concern for fear. WAREHOUSE ADMINISTRATOR is unable to meet with patient prior to her leaving before being [facility] from [facility] Per Registration, patient got in vehicle with someone she was comfortable with and went to [facility]. Prior to patient leaving WAREHOUSE ADMINISTRATOR calls PACT team and leaves message requesting return call. WAREHOUSE ADMINISTRATOR calls Community medical assistant prn and leaves VM requesting return call. WAREHOUSE ADMINISTRATOR requests that [facility] request [facility] records regarding patient per [place] patient presented to their ED on 04/05/22 and 04/09/22. Plan: Patient chose to d/c to the community prior to being seen. JENNY Rogers
== END 2022-04-10 14:50 | disposition left against medical advice (07) ==
PROVIDERS: Emergency Provider Emergency Medicine; Family Provider Family Medicine; PCP Family Medicine
CPT/HCPCS: 99281

== ENCOUNTER 2022-04-18 10:29 | Emergency (ER) | payer OTHER, MEDICAID, SELFPAY ==
[2022-04-18 10:33] VITALS: BP 173/93; PULSE 106; RESP 15; TEMP 36.4; O2SAT 97
== END 2022-04-18 11:27 | disposition left against medical advice (07) ==
PROVIDERS: Emergency Provider Emergency Medicine; Family Provider Family Medicine; PCP Family Medicine
CPT/HCPCS: 99281

== ENCOUNTER 2022-04-22 15:57 | Emergency (ER) | payer OTHER, MEDICAID, SELFPAY ==
[2022-04-22 16:03] VITALS: BP 105/89; PULSE 111; RESP 20; TEMP 37.3; O2SAT 100; BMI 26.2
--- NOTE | 2022-04-22 16:50 | CM.SWNOTE ---
BACK HANGER Note Patient is 42 y/o female, familiar face to ED with 66 ED encounters in the last 12 months. Patient presents today due to concern for not feeling very good. Patient endorses concern for safety but wants to go to bus to get back to [employer] [facility] in [place] where she is staying. Patient endorses concern that she is trespassed from [employer] bus station in [place], and states she cannot return for 5 days. Patient endorses she has been engaging with PACT team but states she has not seen anyone for 3 days and has not been taking her medication. With patient permission, BACK HANGER calls [employer]- it is reported that patient is not trespassed and can take bus. Patient request support getting to bus stop and security walks with patient to bus stop and witnesses patient get on bus. Plan: Patient chooses to leave prior to being seen, patient d/c's from triage and plans to go back to [place] to [facility]. PACT team and Community Cement Tester Assistant continue to f/u with patient. JENNY Rogers
== END 2022-04-22 16:40 | disposition left against medical advice (07) ==
PROVIDERS: Emergency Provider Emergency Medicine; Family Provider Family Medicine; PCP Family Medicine
CPT/HCPCS: 99281

== ENCOUNTER 2022-04-23 16:32 | Emergency (ER) | payer OTHER, MEDICAID, SELFPAY ==
[2022-04-23 17:38] VITALS: BP 192/107; PULSE 105; RESP 16; TEMP 36.4; O2SAT 100
--- NOTE | 2022-04-23 20:32 | PC.NURSE ---
Patient ambulatory to restroom, refused to provide a urine sample. Refused repeat vital signs. Patient ambulatory out of department with friend
== END 2022-04-23 20:34 | disposition left against medical advice (07) ==
PROVIDERS: Emergency Provider Emergency Medicine; Family Provider Family Medicine; PCP Family Medicine
CPT/HCPCS: 99281

== ENCOUNTER 2022-04-23 20:46 | Emergency (ER) | payer OTHER, MEDICAID, SELFPAY ==
[2022-04-23 21:09] VITALS: BP 186/92; PULSE 103; RESP 20; TEMP 36.7; O2SAT 100; BMI 26.6
[2022-04-23] MEDS: OLANZapine ODT 10 MG TAB PO (22:37)
[2022-04-23] MEDS: OLANZapine ODT 10 MG TAB 20 MG PO (22:37)
--- NOTE | 2022-04-24 00:17 | ED.PSYCH ---
HPI - Psych General Chief Complaint: Psychiatric Symptoms Stated Complaint: not feeling well Time Seen by Provider: 04/23/22 22:31 Source: patient Mode of arrival: Ambulatory History of Present Illness HPI Narrative: 42-year-old female smoker with history of schizophrenia and occasional methamphetamine use presents to the emergency department with a chief complaint of feeling fearful that someone might be chasing her. She denies suicidal or homicidal ideation. She denies any use of methamphetamines. She states she thinks she has likely not had her medications for least the past few days. She states that she is not actively working with the PACT team anymore. She denies dizziness, weakness or lightheadedness. She has no chest pain or shortness of breath Related Data Home Medications Medication Instructions Recorded Confirmed Unobtainable 09/29/20 09/29/20 Allergies Allergy/AdvReac Type Severity Reaction Status Date / Time No Known Drug Allergies Allergy Verified 04/24/22 00:35 Review of Systems Review of Systems Narrative: GENERAL: Denies chills, fatigue, malaise, fever, sweats. HEENT: Denies sinus pain, ear pain, sore throat, difficulty swallowing, dizziness. RESPIRATORY: Denies dyspnea, cough, wheezing, hemoptysis, sputum. CARDIOVASCULAR: Denies chest pain, palpitations, orthopnea, edema, GASTROINTESTINAL: Denies nausea, vomiting, abdominal pain, diarrhea, constipation, melena. : Denies dysuria, frequency, incontinence, hematuria, urinary retention. MUSCULOSKELETAL: denies weakness, joint pain, or bony pain SKIN: Denies rash, skin lesions, or other NEUROLOGIC: Denies weakness, headache, numbness, change in speech, confusion, seizures, incoordination. PSYCHIATRIC: See HPI 12 point review of systems is negative except for those stated above Patient History Medical History Drug abuse Schizophrenia Social History Smoking Status: Current every day smoker Smoking Status: Current every day smoker tobacco type: cigarettes alcohol intake frequency: other Substance Use Type: methamphetamine and unknown Exam Narrative Exam Narrative: GENERAL: [42] year old patient appears stated age. Well-developed patient, in mild distress. A bit anxious, and paranoid HEAD: Atraumatic. Normocephalic. EYES: Pupils equal round and reactive. Extraocular motions intact. No scleral icterus. No injection or drainage. ENT: Nose without bleeding, purulent drainage. Throat without erythema, tonsillar hypertrophy or exudate. Airway patent. NECK: Trachea midline. Non tender CARDIOVASCULAR: Regular rate and rhythm without murmurs, gallops, or rubs. RESPIRATORY: Clear to auscultation. Breath sounds equal bilaterally. No wheezes, rales, or rhonchi. GASTROINTESTINAL: Abdomen soft, non-tender, nondistended. EXTREMITIES: No edema or joint tenderness. BACK: Nontender without deformity or crepitance. No flank tenderness. NEURO: CN II-XII grossly in tact SKIN: No rash or erythema of visible areas Initial Vital Signs Initial Vital Signs: Vital Signs Temperature 98.0 F 04/23/22 21:09 Pulse Rate 103 H 04/23/22 21:09 Respiratory Rate 20 04/23/22 21:09 Blood Pressure 186/92 H 04/23/22 21:09 Pulse Oximetry 100 04/23/22 21:09 Oxygen Delivery Method 04/23/22 21:09 Course Orders Ordered: ED Orders 04/23/22 21:14 Consult to BRIDGE LEVERMAN - [employer] Driver Stat Discontinued Medications Olanzapine (Olanzapine Odt 10 Mg Tab) 20 mg PO NOW ONE Stop: 04/23/22 22:32 Last Admin: 04/23/22 22:37 Dose: 20 mg Documented By: ADA Olanzapine (Olanzapine Odt 10 Mg Tab) 10 mg PO NOW ONE Stop: 04/23/22 22:32 Last Admin: 04/23/22 22:37 Dose: 10 mg Documented By: ADA Reevaluation(s) Reevaluation #1: Patient feeling better after above-stated therapies Vital Signs Vital signs: Vital Signs - 8 hr 04/23/22 21:09 Temperature 98.0 F Pulse Rate 103 H Respiratory Rate 20 Blood Pressure 186/92 H Pulse Oximetry 100 Oxygen Delivery Method Room Air MDM - Psych MDM Narrative Medical decision making narrative: [42F with history of meth use and schizophrenia] Multiple etiologies for patient's symptoms considered including, but not limited to: [drug abuse, medical non-compliance vs. other] Prior Charts reviewed: multiple prior notes reviewed Patient's symptoms improved over duration of stay with above-stated therapies. Findings and discharge diagnosis discussed with patient/family followed by verbalization of understanding Return precautions discussed with patient/family whom verbalize understanding of diagnosis and plan Discharge Plan Departure Patient Disposition: Home Clinical Impression: Chronic schizophrenia Activity Restrictions/Additional Instructions: *You have been diagnosed with [chronic schizophrenia] *What to do: *Please continue to take your regular medications as directed. *Please follow up with your primary care provider in 2-3 days, call for an appointment. Let them know you were seen in the Emergency Department and that we ask that you be seen in follow up. We will electronically transmit a record of today's note if your PCP is in our system *If you do not have a primary care provider please contact the [facility] Resource line at [phone]. They will ask some questions about your medical history and help get you set up with a doctor in the community. *Return to Emergency Department if you should have any new, worsening or concerning symptoms, such as [fever greater than 101 F, shaking chills, worsening pain, persistent vomiting or other bothersome symptoms] Prescriptions: No Action Unobtainable Referrals: Ele Rodgers MD [Primary Care Provider] - Stand Alone Forms: Patient Portal/API
--- NOTE | 2022-04-24 02:11 | ED.PSYCH ---
HPI - Psych General Chief Complaint: Psychiatric Symptoms Stated Complaint: not feeling well Time Seen by Provider: 04/23/22 22:31 Source: patient Mode of arrival: Ambulatory History of Present Illness HPI Narrative: 42-year-old female smoker with history of schizophrenia and occasional methamphetamine use presents to the emergency department by EMS with a chief complaint of feeling fearful that someone might be chasing her.? She denies suicidal or homicidal ideation.? This is her 3rd visit of this shift and earlier she presented under similar circumstances and received olanzapine which made her feel better and she left. She denies any use of methamphetamines.? She states she thinks she has likely not had her medications for least the past few days.? She states that she is not actively working with the PACT team anymore.? She denies dizziness, weakness or lightheadedness.? She has no chest pain or shortness of breath Related Data Home Medications Medication Instructions Recorded Confirmed Unobtainable 09/29/20 09/29/20 Allergies Allergy/AdvReac Type Severity Reaction Status Date / Time No Known Drug Allergies Allergy Verified 04/24/22 00:35 Review of Systems Review of Systems Narrative: GENERAL: Denies chills, fatigue, malaise, fever, sweats. HEENT: Denies sinus pain, ear pain, sore throat, difficulty swallowing, dizziness. RESPIRATORY: Denies dyspnea, cough, wheezing, hemoptysis, sputum. CARDIOVASCULAR: Denies chest pain, palpitations, orthopnea, edema, GASTROINTESTINAL: Denies nausea, vomiting, abdominal pain, diarrhea, constipation, melena. : Denies dysuria, frequency, incontinence, hematuria, urinary retention. MUSCULOSKELETAL: denies weakness, joint pain, or bony pain SKIN: Denies rash, skin lesions, or other NEUROLOGIC: Denies weakness, headache, numbness, change in speech, confusion, seizures, incoordination. PSYCHIATRIC: See HPI 12 point review of systems is negative except for those stated above Patient History Medical History Drug abuse Schizophrenia Social History Smoking Status: Current every day smoker Smoking Status: Current every day smoker tobacco type: cigarettes alcohol intake frequency: other Substance Use Type: methamphetamine and unknown Exam Narrative Exam Narrative: GENERAL: [42] year old patient appears stated age. Well-developed patient, in mild distress. Anxious and paranoid HEAD: Atraumatic. Normocephalic. EYES: Pupils equal round and reactive. Extraocular motions intact. No scleral icterus. No injection or drainage. ENT: Nose without bleeding, purulent drainage. Throat without erythema, tonsillar hypertrophy or exudate. Airway patent. NECK: Trachea midline. Non tender CARDIOVASCULAR: Regular rate and rhythm without murmurs, gallops, or rubs. RESPIRATORY: Clear to auscultation. Breath sounds equal bilaterally. No wheezes, rales, or rhonchi. GASTROINTESTINAL: Abdomen soft, non-tender, nondistended. EXTREMITIES: No edema or joint tenderness. BACK: Nontender without deformity or crepitance. No flank tenderness. NEURO: AOx3. Cranial nerves 2-12 grossly intact SKIN: No rash or erythema of visible areas Initial Vital Signs Initial Vital Signs: Vital Signs Temperature 98.0 F 04/23/22 21:09 Pulse Rate 103 H 04/23/22 21:09 Respiratory Rate 20 04/23/22 21:09 Blood Pressure 186/92 H 04/23/22 21:09 Pulse Oximetry 100 04/23/22 21:09 Oxygen Delivery Method 04/23/22 21:09 Course Orders Ordered: ED Orders 04/23/22 21:14 Consult to RECORDS OFFICER - Artificial Breeding Distributor Stat Discontinued Medications Olanzapine (Olanzapine Odt 10 Mg Tab) 20 mg PO NOW ONE Stop: 04/23/22 22:32 Last Admin: 04/23/22 22:37 Dose: 20 mg Documented By: ADA Olanzapine (Olanzapine Odt 10 Mg Tab) 10 mg PO NOW ONE Stop: 04/23/22 22:32 Last Admin: 04/23/22 22:37 Dose: 10 mg Documented By: ADA Vital Signs Vital signs: Vital Signs - 8 hr 04/23/22 21:09 Temperature 98.0 F Pulse Rate 103 H Respiratory Rate 20 Blood Pressure 186/92 H Pulse Oximetry 100 Oxygen Delivery Method Room Air Discharge Plan Departure Patient Disposition: Home Clinical Impression: Chronic schizophrenia Activity Restrictions/Additional Instructions: *You have been diagnosed with [chronic schizophrenia] *What to do: *Please continue to take your regular medications as directed. *Please follow up with your primary care provider in 2-3 days, call for an appointment. Let them know you were seen in the Emergency Department and that we ask that you be seen in follow up. We will electronically transmit a record of today's note if your PCP is in our system *If you do not have a primary care provider please contact the [facility] Resource line at [phone]. They will ask some questions about your medical history and help get you set up with a doctor in the community. *Return to Emergency Department if you should have any new, worsening or concerning symptoms, such as [fever greater than 101 F, shaking chills, worsening pain, persistent vomiting or other bothersome symptoms] Prescriptions: No Action Unobtainable Referrals: Ele Rodgers MD [Primary Care Provider] - Stand Alone Forms: Patient Portal/API
== END 2022-04-23 23:10 | disposition home or self-care (01) ==
PROVIDERS: Emergency Provider Emergency Medicine; Family Provider Family Medicine; PCP Family Medicine
DX: F20.9 Schizophrenia, unspecified (principal)
CPT/HCPCS: 99283

== ENCOUNTER 2022-04-24 00:30 | Emergency (ER) | payer OTHER, MEDICAID, SELFPAY ==
[2022-04-24 00:32] VITALS: BP 188/91; PULSE 94; RESP 20; O2SAT 100
--- NOTE | 2022-04-24 00:37 | PC.NURSE ---
patient refused temperature
--- NOTE | 2022-04-24 01:51 | PC.NURSE ---
Addendum entered by Tatum Mercado CNA 04/24/22 04:45: PREP MANAGER note: Patient refused again to have vital signs taken. Patient's friend, Joseph, is sitting in room. Both patients appear sleepy. Addendum entered by Tatum Mercado CNA 04/24/22 03:12: PREP MANAGER note: Patient refused vitals. Counted respirations at doorway. Addendum entered by Tatum Mercado CNA 04/24/22 02:21: PREP MANAGER note: Patient refused vitals. RN aware. Original Note: PREP MANAGER note: Patient is refusing vitals. Patient's friend, Joseph, is in the chair next to patient's bed.
--- NOTE | 2022-04-24 02:21 | PC.NURSE ---
MILL STENCILER note: patient refused vitals. RN aware.
[2022-04-24 03:12] VITALS: RESP 16
--- NOTE | 2022-04-24 03:57 | ED_ITS ---
HPI - Psych General Chief Complaint: Psychiatric Symptoms Stated Complaint: feels unsafe Time Seen by Provider: 04/24/22 00:33 Source: EMS Mode of arrival: EMS History of Present Illness HPI Narrative: 42-year-old female smoker with history of schizophrenia and occasional methamphetamine use presents to the emergency department by EMS with a chief complaint of feeling fearful that someone might be chasing her.? She denies suicidal or homicidal ideation.? This is her 3rd visit of this shift and earlier she presented under similar circumstances and received olanzapine which made her feel better and she left. She denies any use of methamphetamines.? She states she thinks she has likely not had her medications for least the past few days.? She states that she is not actively working with the PACT team anymore.? She denies dizziness, weakness or lightheadedness.? She has no chest pain or shortness of breath Related Data Home Medications Medication Instructions Recorded Confirmed Unobtainable 09/29/20 09/29/20 Allergies Allergy/AdvReac Type Severity Reaction Status Date / Time No Known Drug Allergies Allergy Verified 04/29/22 10:32 Review of Systems Review of Systems Narrative: GENERAL: Denies chills, fatigue, malaise, fever, sweats. HEENT: Denies sinus pain, ear pain, sore throat, difficulty swallowing, dizziness. RESPIRATORY: Denies dyspnea, cough, wheezing, hemoptysis, sputum. CARDIOVASCULAR: Denies chest pain, palpitations, orthopnea, edema, GASTROINTESTINAL: Denies nausea, vomiting, abdominal pain, diarrhea, constipation, melena. : Denies dysuria, frequency, incontinence, hematuria, urinary retention. MUSCULOSKELETAL: denies weakness, joint pain, or bony pain SKIN: Denies rash, skin lesions, or other NEUROLOGIC: Denies weakness, headache, numbness, change in speech, confusion, seizures, incoordination. PSYCHIATRIC: See HPI 12 point review of systems is negative except for those stated above Patient History Medical History Drug abuse Schizophrenia Social History Smoking Status: Current every day smoker Smoking Status: Current every day smoker tobacco type: cigarettes alcohol intake frequency: other Substance Use Type: methamphetamine and unknown Exam Narrative Exam Narrative: GENERAL: [42] year old patient appears stated age. Well-developed patient, in mild distress. Anxious and paranoid HEAD: Atraumatic. Normocephalic. EYES: Pupils equal round and reactive. Extraocular motions intact. No scleral icterus. No injection or drainage. ENT: Nose without bleeding, purulent drainage. Throat without erythema, tonsillar hypertrophy or exudate. Airway patent. NECK: Trachea midline. Non tender CARDIOVASCULAR: Regular rate and rhythm without murmurs, gallops, or rubs. RESPIRATORY: Clear to auscultation. Breath sounds equal bilaterally. No wheezes, rales, or rhonchi. GASTROINTESTINAL: Abdomen soft, non-tender, nondistended. EXTREMITIES: No edema or joint tenderness. BACK: Nontender without deformity or crepitance. No flank tenderness. NEURO: AOx3. SKIN: No rash or erythema of visible areas Initial Vital Signs Initial Vital Signs: Vital Signs Pulse Rate 94 H 04/24/22 00:32 Respiratory Rate 20 04/24/22 00:32 Blood Pressure 188/91 H 04/24/22 00:32 Pulse Oximetry 100 04/24/22 00:32 Oxygen Delivery Method 04/24/22 00:32 Course Reevaluation(s) Reevaluation #1: Patient resting comfortably, her friend is at the bedside with her. Continues to have no suicidal or homicidal ideation Vital Signs Vital signs: Vital Signs - 8 hr 04/24/22 00:32 04/24/22 03:12 Pulse Rate 94 H Respiratory Rate 20 16 Blood Pressure 188/91 H Pulse Oximetry 100 Oxygen Delivery Method Room Air MDM - Psych MDM Narrative Medical decision making narrative: [42-year-old female feeling unsafe] Multiple etiologies for patient's symptoms considered including, but not limited to: [Methamphetamine use, schizophrenia versus other Prior Charts reviewed: Multiple prior visits for same Labs reviewed and interpreted by myself: Patient's symptoms improved over duration of stay with above-stated therapies. Findings and discharge diagnosis discussed with patient/family followed by verbalization of understanding Return precautions discussed with patient/family whom verbalize understanding of diagnosis and plan Discharge Plan Departure Patient Disposition: Home Clinical Impression: Chronic schizophrenia Instructions: DI for Schizophrenia Activity Restrictions/Additional Instructions: *You have been diagnosed with [chronic schizophrenia] *What to do: *Please continue to take your regular medications as directed. *Please follow up with your primary care provider in 2-3 days, call for an appointment. Let them know you were seen in the Emergency Department and that we ask that you be seen in follow up. We will electronically transmit a record of today's note if your PCP is in our system *If you do not have a primary care provider please contact the [facility] Resource line at [phone]. They will ask some questions about your medical history and help get you set up with a doctor in the community. *Return to Emergency Department if you should have any new, worsening or concerning symptoms, such as [fever greater than 101 F, shaking chills, worsening pain, persistent vomiting or other bothersome symptoms] Prescriptions: No Action Unobtainable Referrals: Ele Rodgers MD [Primary Care Provider] - Stand Alone Forms: Patient Portal/API
== END 2022-04-24 06:41 | disposition home or self-care (01) ==
PROVIDERS: Emergency Provider Emergency Medicine; Family Provider Family Medicine; PCP Family Medicine
DX: F20.9 Schizophrenia, unspecified (principal)
CPT/HCPCS: 99283

== ENCOUNTER 2022-04-24 17:26 | Emergency (ER) | payer OTHER, MEDICAID, SELFPAY ==
[2022-04-24 17:50] VITALS: BP 181/81; PULSE 99; RESP 20; TEMP 36.7; O2SAT 97; BMI 26.6
--- NOTE | 2022-04-24 20:45 | PC.NURSE ---
Pt taken to room 3 and refused to remain there stating that she didn't like the way it made her feel. no open rooms to offer. Pt left at [phone]
== END 2022-04-24 20:42 | disposition left against medical advice (07) ==
PROVIDERS: Emergency Provider Emergency Medicine; Family Provider Family Medicine; PCP Family Medicine
CPT/HCPCS: 99281

== ENCOUNTER 2022-04-25 03:28 | Emergency (ER) | payer OTHER, MEDICAID, SELFPAY ==
[2022-04-25 03:37] VITALS: BP 178/120; PULSE 98; RESP 21; TEMP 36.6; O2SAT 98; BMI 26.6
--- NOTE | 2022-04-25 04:06 | ED_ITS ---
HPI - Anxiety <Kaela Watkins DO - Last Filed: 04/25/22 23:46> General Chief Complaint: Anxiety Stated Complaint: scared Time Seen by Provider: 04/25/22 03:45 Source: patient and EMS Mode of arrival: EMS History of Present Illness HPI narrative: Patient is a 42-year-old female history of schizophrenia methamphetamine abuse presenting today with paranoia. She been doing well she has not been to the ER since March 10. She is frequent Flyer in the emergency department well known to myself in this facility. She was seen twice yesterday for the same. She was given Zyprexa. She is with someone new from she is not normally with. She is questioned alone she states that she feels safe. She denies any suicidal or homicidal thoughts. She reports that the pact team has not been able to reach her and give her her meds. She is requesting a shot rather than the pill she reports that works better. No suicidal or homicidal thoughts. Related Data Home Medications Medication Instructions Recorded Confirmed Unobtainable 09/29/20 09/29/20 Allergies Allergy/AdvReac Type Severity Reaction Status Date / Time No Known Drug Allergies Allergy Verified 04/24/22 00:35 Review of Systems <Kaela Watkins DO - Last Filed: 04/25/22 23:46> Review of Systems ROS Unobtainable: All systems reviewed & are unremarkable except as noted in HPI and below Patient History <Kaela Watkins DO - Last Filed: 04/25/22 23:46> Medical History Drug abuse Schizophrenia Social History Smoking Status: Current every day smoker Smoking Status: Current every day smoker tobacco type: cigarettes alcohol intake frequency: other Substance Use Type: methamphetamine and unknown Exam <DO Crissy Lagunas Last Filed: 04/25/22 23:46> Initial Vital Signs Initial Vital Signs: Vital Signs Temperature 98 F 04/25/22 03:37 Pulse Rate 98 H 04/25/22 03:37 Respiratory Rate 21 04/25/22 03:37 Blood Pressure 178/120 H 04/25/22 03:37 Pulse Oximetry 98 04/25/22 03:37 Oxygen Delivery Method 04/25/22 03:37 GENERAL: Alert 42-year-old female mildly disheveled CARDIOVASCULAR: peripheral pulses in tact, cap refill <2 sec RESPIRATORY: No respiratory distress, speaks in full sentences without difficulty EXTREMITIES: Normal range of motion, no clubbing or edema. Neurovascularly intact NEUROLOGICAL: Cranial nerves II through XII grossly intact. Normal gait and speech. SKIN: Warm, dry, no petechiae, no rashes or lesions. <Cassidy Coelman DO - Last Filed: 04/25/22 09:57> Initial Vital Signs Initial Vital Signs: Vital Signs Temperature 98 F 04/25/22 03:37 Pulse Rate 98 H 04/25/22 03:37 Respiratory Rate 21 04/25/22 03:37 Blood Pressure 178/120 H 04/25/22 03:37 Pulse Oximetry 98 04/25/22 03:37 Oxygen Delivery Method 04/25/22 03:37 Course <Kaela Watkins DO - Last Filed: 04/25/22 23:46> Orders Ordered: Discontinued Medications Haloperidol (Haloperidol 5 Mg/Ml Vial) 5 mg IM NOW ONE Stop: 04/25/22 04:06 Last Admin: 04/25/22 04:14 Dose: 5 mg Documented By: CAROLYN Olanzapine (Olanzapine Odt 10 Mg Tab) 20 mg PO NOW ONE Stop: 04/25/22 03:48 Vital Signs Vital signs: Vital Signs - 8 hr 04/25/22 03:37 04/25/22 05:14 Temperature 98 F Pulse Rate 98 H 88 Respiratory Rate 21 18 Blood Pressure 178/120 H 169/98 H Pulse Oximetry 98 97 Oxygen Delivery Method Room Air Room Air <Cassidy Coleman DO - Last Filed: 04/25/22 09:57> Orders Ordered: Discontinued Medications Haloperidol (Haloperidol 5 Mg/Ml Vial) 5 mg IM NOW ONE Stop: 04/25/22 04:06 Last Admin: 04/25/22 04:14 Dose: 5 mg Documented By: CAROLYN Olanzapine (Olanzapine Odt 10 Mg Tab) 20 mg PO NOW ONE Stop: 04/25/22 03:48 Vital Signs Vital signs: Vital Signs - 8 hr 04/25/22 03:37 04/25/22 05:14 Temperature 98 F Pulse Rate 98 H 88 Respiratory Rate 21 18 Blood Pressure 178/120 H 169/98 H Pulse Oximetry 98 97 Oxygen Delivery Method Room Air Room Air MDM - Anxiety <Kaela Roland, DO - Last Filed: 04/25/22 23:46> [facility] Narrative Medical decision making narrative: Patient 42-year-old female history of chronic meth use and schizophrenia frequent Flyer to the ED. he has been here a couple of times over last 2 days when she previously was not. She received shot of Haldol which allowed her to sleep. She is been hospitalized numerous times with outpatient resources available to her. She is not suicidal or homicidal. At this time not ne cessarily gravely disabled. She is here with a friend which is abnormal for her encouraging her to come in for a warm place to stay. Patient is currently sleeping and has been for a little while. Signed out to Dr. Coleman for further disposition <Cassidy Coleman, DO - Last Filed: 04/25/22 09:57> [facility] Narrative Medical decision making narrative: Patient 42-year-old female history of chronic meth use and schizophrenia frequent Flyer to the ED. he has been here a couple of times over last 2 days when she previously was not. She received shot of Haldol which allowed her to sleep. She is been hospitalized numerous times with outpatient resources available to her. She is not suicidal or homicidal. At this time not necessarily gravely disabled. She is here with a friend which is abnormal for her encouraging her to come in for a warm place to stay. Patient is currently sleeping and has been for a little while. Signed out to Dr. Coleman for further disposition 04/25/22 Manuelk: 42-year-old female with history of chronic meth use and schizophrenia who is seen here frequently. Patient is known to myself received a shot of Haldol allowed her to sleep. She is been hospitalized multiple times she has multiple outpatient resources is part of the PACT team. Patient does not appear to be gravely disabled at this time he is not homicidal or suicidal or seems to be a threat to herself or others. Patient has a friend who came to the emergency department with her but she states that she feels safe with this individual that she is not afraid of them and feels comfortable being around them and is requesting to see them. Patient woken at 8:35 a.m. after seeing myself evaluating the patient she would like to be discharged and I feel is appropriate at this time. Discharge Plan Departure Patient Disposition: Home Clinical Impression: Chronic schizophrenia Instructions: Schizophrenia Activity Restrictions/Additional Instructions: *You have been diagnosed with chronic schizophrenia *What to do: Stay warm Khoi. *Continue to take medications as directed *Follow up with your primary care provider in 2-3 days or call [phone] *Return to ER if you should have any new, worsening or concerning symptoms Prescriptions: No Action Unobtainable Referrals: Ele Rodgers MD [Primary Care Provider] - Stand Alone Forms: Patient Portal/API
[2022-04-25] MEDS: HALOPERIDOL 5 MG/ML VIAL IM (04:14)
[2022-04-25 05:14] VITALS: BP 169/98; PULSE 88; RESP 18; O2SAT 97
== END 2022-04-25 08:40 | disposition home or self-care (01) ==
PROVIDERS: Emergency Provider Emergency Medicine; Family Provider Family Medicine; PCP Family Medicine
DX: F20.9 Schizophrenia, unspecified (principal)
CPT/HCPCS: 96372; 99283; J1630

== ENCOUNTER 2022-04-26 16:45 | Emergency (ER) | payer OTHER, MEDICAID, SELFPAY ==
[2022-04-26 16:50] VITALS: BP 247/127; PULSE 120; RESP 18; TEMP 37.2; O2SAT 96; BMI 26.6
[2022-04-26] MEDS: HALOPERIDOL 5 MG/ML VIAL IM (18:03)
--- NOTE | 2022-04-26 18:28 | CM.SWNOTE ---
SPREADER BOX OPERATOR Note Patient is 42 y/o female with significant hx of Methamphetamine use, Schizophrenia, and paranoia. Patient presents to ED today via EMS after endorsing she is scared at [facility] [place]. This is patient's 7 ED encounter within a week and patient has hx of 72 ED encounters within the last year. Patient presents with unkempt presentation wearing heart shaped sunglasses. Per [facility] [employer] Jose Alfredo Dheeraj, patient is still connected with the PACT team. Patient reports that she has not received her medication in several days. With patient permission SPREADER BOX OPERATOR calls PACT team and leaves requesting return call (ph. # [phone]). Jose Alfredo Esqueda also previously reported via email that patient has befriended someone with a criminal history. SPREADER BOX OPERATOR asks patient about her new friend and patient endorses he feels safe with him. Patient presents to ED without any visitors. Patient endorses that she continues to reside at [facility] in [place]. Patient endorses that she does not feel safe and reports that someone is out to get her, patient presents at baseline responding to internal stimuli. Patient has preference for someone to sit near her for her safety. Patient presents as redirectable. Patient presents with mumbled pressured speech. Patient is repetitive on concerns of her safety and feeling scared. Patient endorses she recently went to [facility] and picked up toiletries. Patient denies HI and SI. Per pulmonary physical therapist, patients vitals show hypertension and tachycardia. Patient requests IV medication, ED provider orders haldol for patient. Patient presents as more comfortable being independent in room. Patient previously requesting to stay in ED overnight, SPREADER BOX OPERATOR to inform ED provider of this request. Plan: ED provider to evaluate patient for medical clearance. PACT team to f/u with patient. JENNY Rogers
[2022-04-26 18:39] VITALS: BP 185/103; PULSE 105; O2SAT 97
--- NOTE | 2022-04-27 05:23 | ED_ITS ---
HPI - Psych <Manju Merchant MD - Last Filed: 04/28/22 00:16> General Chief Complaint: Psychiatric Symptoms Stated Complaint: Psych Time Seen by Provider: 04/26/22 17:56 History of Present Illness HPI Narrative: 42-year-old woman with a long history of chronic schizophrenia and methamphetamine use, chooses to essentially live on the streets in [place] with intermittent contact with inpatient psychiatric care. She does have a pact team and is supposed to be given directly observed medications daily but it is not clear how frequently that actually happens. She comes in tonight complaining that she does not feel safe and is hearing voices. Previously she does quite well with both Haldol and Zyprexa. She was offered a pill or shot and requested a shot. She declines blood work as well as offering any urine. She is acting frightened and requesting the social science teacher stay close by her side but is otherwise non threatening. Related Data Home Medications Medication Instructions Recorded Confirmed Unobtainable 09/29/20 09/29/20 Allergies Allergy/AdvReac Type Severity Reaction Status Date / Time No Known Drug Allergies Allergy Verified 04/24/22 00:35 Review of Systems <Manju Merchant MD - Last Filed: 04/28/22 00:16> Review of Systems ROS Unobtainable: Unobtainable due to mental condition Patient History <Manju Merchant MD - Last Filed: 04/28/22 00:16> Medical History Drug abuse Schizophrenia Social History Smoking Status: Current every day smoker Smoking Status: Current every day smoker tobacco type: cigarettes alcohol intake frequency: other Substance Use Type: methamphetamine and unknown Exam <Manju Merchant MD - Last Filed: 04/28/22 00:16> Initial Vital Signs Initial Vital Signs: Vital Signs Temperature 98.9 F 04/26/22 16:50 Pulse Rate 120 H 04/26/22 16:50 Respiratory Rate 18 04/26/22 16:50 Blood Pressure 247/127 H 04/26/22 16:50 Pulse Oximetry 96 04/26/22 16:50 Oxygen Delivery Method 04/26/22 16:50 General: Disheveled, physically dirty, disorganized thinking, seems to be responding to auditory stimuli Respiratory: Lungs are clear to auscultation, no wheezing no rales no rhonchi. Full and symmetrical air movement Cardiac: Tachycardic with no murmurs Abdomen: Soft, nontender, good bowel tones, no flank pain Skin: No obvious rashes or skin breakdown but rather thick layer of both makeup and dirt covering much of her skin Neurologic: Moving all extremities Psych: Responding to internal stimuli, moderate psychomotor agitation, poor eye contact nonpressured speech <Isaiah Capps DO - Last Filed: 04/27/22 10:24> Initial Vital Signs Initial Vital Signs: Vital Signs Temperature 98.9 F 04/26/22 16:50 Pulse Rate 120 H 04/26/22 16:50 Respiratory Rate 18 04/26/22 16:50 Blood Pressure 247/127 H 04/26/22 16:50 Pulse Oximetry 96 04/26/22 16:50 Oxygen Delivery Method 04/26/22 16:50 Course <Manju Merchant MD - Last Filed: 04/28/22 00:16> Orders Ordered: Discontinued Medications Haloperidol (Haloperidol 5 Mg/Ml Vial) 5 mg IM NOW ONE Stop: 04/26/22 17:57 Last Admin: 04/26/22 18:03 Dose: 5 mg Documented By: JORGE LUIS Vital Signs Vital signs: Vital Signs - 8 hr 04/27/22 08:12 Pulse Rate 94 H Blood Pressure 165/104 H Pulse Oximetry 99 Oxygen Delivery Method Room Air <Isaiah Capps DO - Last Filed: 04/27/22 10:24> Orders Ordered: Discontinued Medications Haloperidol (Haloperidol 5 Mg/Ml Vial) 5 mg IM NOW ONE Stop: 04/26/22 17:57 Last Admin: 04/26/22 18:03 Dose: 5 mg Documented By: RL Vital Signs Vital signs: Vital Signs - 8 hr 04/27/22 08:12 Pulse Rate 94 H Blood Pressure 165/104 H Pulse Oximetry 99 Oxygen Delivery Method Room Air MDM - Psych <Manju Merchant MD - Last Filed: 04/28/22 00:16> MDM Narrative Medical decision making narrative: CC: Afraid to be alone. This is an acute exacerbation of a chronic problem with uncertain prognosis Complicating co-morbidities: Schizophrenia, homelessness, multiple psychiatric admissions both voluntary and involuntary Corroborating data: Data collected from: patient, Social determinants of health that may influence the patients condition: See above Medical records reviewed: Notes from [facility], mental health contact reports social science teacher notes and multiple prior emergency visits for chronic schizophrenia and feeling unsafe Differential considered: Chronic schizophrenia, poor medication compliance, methamphetamine use Exam documented above, pertinent findings include: Disheveled, exam is at her baseline Lab Test results independently reviewed as above. Pertinent findings: Patient has denied blood work and has not provided a urine sample today Treatment: At her request she is given 5 mg of IM Haldol Re-evaluations: Shortly after the Haldol, she calmed significantly and goes to sleep. She is spent the entire night sleep and will be re-evaluated when she awakes with care turned over to Dr. Capps Discussion: Disposition: see below, along with detailed discharge instructions that have been reviewed with patient as well as indications for ED re-evaluation and additional outpatient follow up <Isaiah Capps, DO - Last Filed: 04/27/22 10:24> MDM Narrative Medical decision making narrative: CC: Afraid to be alone. This is an acute exacerbation of a chronic problem with uncertain prognosis Complicating co-morbidities: Schizophrenia, homelessness, multiple psychiatric admissions both voluntary and involuntary Corroborating data: Data collected from: patient, Social determinants of health that may influence the patients condition: See above Medical records reviewed: Notes from [facility], mental health contact reports social science teacher notes and multiple prior emergency visits for chronic schizophrenia and feeling unsafe Differential considered: Chronic schizophrenia, poor medication compliance, methamphetamine use Exam documented above, pertinent findings include: Disheveled, exam is at her baseline Lab Test results independently reviewed as above. Pertinent findings: Patient has denied blood work and has not provided a urine sample today Treatment: At her request she is given 5 mg of IM Haldol Re-evaluations: Shortly after the Haldol, she calmed significantly and goes to sleep. She is spent the entire night sleep and will be re-evaluated when she awakes with care turned over to Dr. Capps Discussion: Disposition: see below, along with detailed discharge instructions that have been reviewed with patient as well as indications for ED re-evaluation and additional outpatient follow up Dr capps: Received turned over. Reviewed history and physical exam and workup. Patient has been stable overnight. This morning patient was calm. Will discharge patient. Discharge Plan Departure Patient Disposition: Home Clinical Impression: Chronic schizophrenia, Acute psychosis Activity Restrictions/Additional Instructions: Continue to take all of your medications as directed. Prescriptions: No Action Unobtainable Referrals: Ele Rodgers MD [Primary Care Provider] - Stand Alone Forms: Patient Portal/API
[2022-04-27 08:12] VITALS: BP 165/104; PULSE 94; O2SAT 99
== END 2022-04-27 10:27 | disposition home or self-care (01) ==
PROVIDERS: Emergency Provider Emergency Medicine; Family Provider Family Medicine; PCP Family Medicine
DX: F20.9 Schizophrenia, unspecified (principal)
CPT/HCPCS: 96372; 99283; J1630

== ENCOUNTER 2022-04-29 10:23 | Emergency (ER) | payer OTHER, MEDICAID, SELFPAY ==
[2022-04-29 10:30] VITALS: BP 177/116; PULSE 106; RESP 18; TEMP 36.6; O2SAT 100; BMI 26.6
--- NOTE | 2022-04-29 10:51 | PC.NURSE ---
Connected with Ed with Pacts team, he plans to meet [facility] at [facility] tonight for her normal medications. Claire spoke with Ed to establish plan. After discussion with Ed, patient wanted to head out I just want to get back [facility] to lay down and meet with him Patient admits she feels safe enough to go. Patient ambulatory out of department with belongings.
== END 2022-04-29 10:54 | disposition left against medical advice (07) ==
PROVIDERS: Emergency Provider Emergency Medicine; Family Provider Family Medicine; PCP Family Medicine
CPT/HCPCS: 99283

== ENCOUNTER 2022-04-30 01:03 | Emergency (ER) | payer OTHER, MEDICAID, SELFPAY ==
--- NOTE | 2022-04-30 01:10 | ED_ITS ---
HPI - General Adult General Chief complaint: Anxiety Stated complaint: not feeling well Time Seen by Provider: 04/30/22 01:04 History of Present Illness HPI narrative: 42-year-old female smoker with history of methamphetamine use, chronic schizophrenia and frequent medical noncompliance is largely homeless on the streets [facility] presents with a chief complaint of not having access to her antipsychotics until the morning. She states that she is hearing voices and feels unsafe, she states that she feels like people are after her and she is hoping we can give her shot of the medicine that she received on her last visit, stating this seems to work better than the olanzapine that she had received previously. She denies any suicidal or homicidal ideations. She denies any street drug use. She is otherwise well and denies fever chills. She has no headache or blurred vision denies chest pain, shortness of breath or cough. Related Data Home Medications Medication Instructions Recorded Confirmed Unobtainable 09/29/20 09/29/20 Allergies Allergy/AdvReac Type Severity Reaction Status Date / Time No Known Drug Allergies Allergy Verified 04/29/22 10:32 Review of Systems Review of Systems Narrative: GENERAL: Denies chills, fatigue, malaise, fever, sweats. HEENT: Denies sinus pain, ear pain, sore throat, difficulty swallowing, dizziness. RESPIRATORY: Denies dyspnea, cough, wheezing, hemoptysis, sputum. CARDIOVASCULAR: Denies chest pain, palpitations, orthopnea, edema, GASTROINTESTINAL: Denies nausea, vomiting, abdominal pain, diarrhea, constipation, melena. : Denies dysuria, frequency, incontinence, hematuria, urinary retention. MUSCULOSKELETAL: denies weakness, joint pain, or bony pain SKIN: Denies rash, skin lesions, or other NEUROLOGIC: Denies weakness, headache, numbness, change in speech, confusion, seizures, incoordination. PSYCHIATRIC: See HPI 12 point review of systems is negative except for those stated above Patient History Medical History Drug abuse Schizophrenia Social History Smoking Status: Current every day smoker Smoking Status: Current every day smoker tobacco type: cigarettes alcohol intake frequency: other Substance Use Type: methamphetamine and unknown Exam Narrative Exam Narrative: GENERAL: [42] year old patient appears stated age. Well-developed patient, in mild distress. GCS 15, anxious, a bit paranoid, speaking clearly, walking with steady gait HEAD: Atraumatic. Normocephalic. EYES: Pupils equal round and reactive. Extraocular motions intact. No scleral icterus. No injection or drainage. ENT: Nose without bleeding, purulent drainage. Throat without erythema, tonsillar hypertrophy or exudate. Airway patent. NECK: Trachea midline. Non tender CARDIOVASCULAR: Regular rate and rhythm without murmurs, gallops, or rubs. RESPIRATORY: Clear to auscultation. Breath sounds equal bilaterally. No wheezes, rales, or rhonchi. GASTROINTESTINAL: Abdomen soft, non-tender, nondistended. EXTREMITIES: No edema or joint tenderness. BACK: Nontender without deformity or crepitance. No flank tenderness. NEURO: Cranial nerves 2-12 grossly intact. SKIN: No rash or erythema of visible areas Initial Vital Signs Initial Vital Signs: Vital Signs Temperature 97.6 F 04/30/22 01:12 Pulse Rate 112 H 04/30/22 01:12 Respiratory Rate 18 04/30/22 01:12 Blood Pressure 167/95 H 04/30/22 01:12 Pulse Oximetry 98 04/30/22 01:12 Oxygen Delivery Method 04/30/22 01:12 Course Orders Ordered: Discontinued Medications Haloperidol (Haloperidol 5 Mg/Ml Vial) 5 mg IM NOW ONE Stop: 04/30/22 01:12 Last Admin: 04/30/22 01:29 Dose: 5 mg Documented By: AP Vital Signs Vital signs: Vital Signs - 8 hr 04/30/22 01:12 04/30/22 02:41 Temperature 97.6 F Pulse Rate 112 H 100 H Respiratory Rate 18 16 Blood Pressure 167/95 H 160/88 H Pulse Oximetry 98 97 Oxygen Delivery Method Room Air Room Air Medical Decision Making [facility] Narrative Medical decision making narrative: [42-year-old female with frequent visits for meth amphetamine use and schizophrenia] Multiple etiologies for patient's symptoms considered including, but not limited to: [] Prior Charts reviewed: Methamphetamine use, schizophrenia versus other multiple prior ED visits Labs reviewed and interpreted by myself: None obtained Imaging reviewed: None obtained Patient's symptoms improved over duration of stay with above-stated therapies. Findings and discharge diagnosis discussed with patient/family followed by verbalization of understanding Return precautions discussed with patient/family whom verbalize understanding of diagnosis and plan Discharge Plan Departure Patient Disposition: Home Clinical Impression: Chronic schizophrenia Instructions: DI for Schizophrenia Activity Restrictions/Additional Instructions: There is no evidence of an emergent or life threatening illness at this time, but follow up with your doctor in 1-2 days is recommended nonetheless to irma deontee to rule out serious underlying causes of your symptoms. Please call the office for an appointment. Please return to the Emergency Department for any worsening or persistent symptoms. Please take medications as directed. Prescriptions: No Action Unobtainable Referrals: Ele Rodgers MD [Primary Care Provider] - Stand Alone Forms: Patient Portal/API
[2022-04-30 01:12] VITALS: BP 167/95; PULSE 112; RESP 18; TEMP 36.4; O2SAT 98
[2022-04-30] MEDS: HALOPERIDOL 5 MG/ML VIAL IM (01:29)
[2022-04-30 02:41] VITALS: BP 160/88; PULSE 100; RESP 16; O2SAT 97
[2022-04-30 06:35] VITALS: BP 155/90; PULSE 92; RESP 18; TEMP 36.6; O2SAT 98
== END 2022-04-30 06:45 | disposition home or self-care (01) ==
PROVIDERS: Emergency Provider Emergency Medicine; Family Provider Family Medicine; PCP Family Medicine
DX: F20.9 Schizophrenia, unspecified (principal)
CPT/HCPCS: 96372; 99283; J1630

== ENCOUNTER 2022-05-01 11:42 | Emergency (ER) | payer OTHER, MEDICAID, SELFPAY ==
[2022-05-01 11:52] VITALS: BP 178/102; PULSE 102; RESP 20; TEMP 36.6; O2SAT 100; BMI 26.6
--- NOTE | 2022-05-01 11:57 | DI.RAD.S_ITS ---
PROCEDURE: XR CHEST 1V INDICATIONS: chest pain TECHNIQUE: One view of the chest was acquired. COMPARISON: None. FINDINGS: Surgical changes and devices: None. Lungs and pleura: Lungs are clear. No pleural effusions or pneumothorax. Mediastinum: Mediastinal contours appear normal. Heart size is normal. Bones and chest wall: No suspicious bony lesions. Overlying soft tissues appear unremarkable. IMPRESSION: No acute cardiopulmonary process demonstrated radiographically. Dictated by: Adam Joya M.D. on 05/01/2022 at 12:33 Approved by: Adam Joya M.D. on 05/01/2022 at 12:33
[2022-05-01 12:24] LABS: Add Manual Diff / Slide Review NO; Basophils Absolute Auto 100 /uL (0-100); Basophils Percent Auto 0.6 % (0-2); Eosinophils Absolute Auto 600 /uL (0-450); Hematocrit 36.4 % (36-46); Lymphocytes Absolute Auto 1200 /uL (1100-4500); Lymphocytes Percent Auto 13.1 % (25-40); Mean Corpuscular HGB Conc 32.8 % (30-36); Mean Corpuscular Hemoglobin 26.9 PG (26-34); Monocytes Absolute Auto 600 /uL (0-900); Monocytes Percent Auto 6.5 % (3-14); Neutrophils Absolute Auto 6800 /uL (1500-7000); Neutrophils Percent Auto 73.8 % (50-75); Platelet Count 479 X10^3/uL (150-400); Red Blood Cell Count 4.44 X10^6/uL (4.0-5.2); Red Cell Distribution Width 15.7 % (11.6-14.8); White Blood Cell Count 9.2 X10^3/uL (4.5-11.0)
[2022-05-01 12:29] LABS: Prothrombin Time 11.1 SECONDS (10.1-12.7)
[2022-05-01 12:32] LABS: PTT Partial Thromboplastin Tim 34 SECONDS (26-36)
[2022-05-01 12:35] LABS: Alanine Aminotransferase 17 IU/L (<35); Albumin 4.2 g/dL (3.5-5.0); Albumin Globulin Ratio 1.2 (1.0-2.8); Alkaline Phosphatase 79 U/L (38-126); Aspartate Aminotransferase 24 IU/L (14-36); BUN Creatinine Ratio 15.8 (6-22); Bilirubin Total 0.6 mg/dL (0.2-1.3); Blood Urea Nitrogen 12 mg/dL (7-17); Calcium 8.3 mg/dL (8.4-10.2); Carbon Dioxide 30 mmol/L (22-32); Chloride 99 mmol/L (98-107); Creatine Kinase 95 U/L (30-135); Estimated Glomerular Filt Rate > 60 mL/min (>60); Globulin 3.4 g/dL (1.7-4.1); Glucose 90 mg/dL (70-100); Lipase 105 U/L (23-300); Magnesium 2.1 mg/dL (1.6-2.3); Potassium 3.6 mmol/L (3.4-5.1); Sodium 140 mmol/L (137-145); Total Protein 7.6 g/dL (6.3-8.2)
[2022-05-01 12:49] LABS: HEMOLYSIS < 15 (0-50); Troponin I < 0.012 ng/mL (0.01-0.034)
== END 2022-05-01 14:55 | disposition left against medical advice (07) ==
PROVIDERS: Emergency Provider Emergency Medicine; Family Provider Family Medicine; PCP Family Medicine
CPT/HCPCS: 36415; 71045; 80053; 82550; 83690; 83735; 84484; 85025; 85610; 85730; 93005

== ENCOUNTER 2022-05-01 16:36 | Emergency (ER) | payer OTHER, MEDICAID, SELFPAY ==
[2022-05-01 16:47] VITALS: BP 203/113; PULSE 110; RESP 20; TEMP 37.2; O2SAT 98; BMI 26.6
--- NOTE | 2022-05-01 18:00 | ED_ITS ---
HPI - Chest Pain <DO Crissy aLgunas Last Filed: 05/02/22 20:51> General Chief Complaint: Chest Pain Stated Complaint: Chest pain Time Seen by Provider: 05/01/22 17:52 Source: patient Mode of arrival: Ambulatory Limitations: no limitations History of Present Illness HPI narrative: Patient is a 42-year-old female well known to this facility and myself with history of chronic schizophrenia and methamphetamine abuse presenting for the 2nd time today. She was checked in earlier with chest pain she had blood work done but left prior to evaluation and presents again with ongoing chest pain. She is noted to be hypertensive and tachycardic. She says she is pain on the right side of her chest constant for the last couple of days. She says she just does not feel well. She denies any nausea or vomiting but does have some shortness of breath. She denies any abdominal pain fever and other symptoms. He describes the pain as sharp and stabbing and nonradiating. Difficult telling me what makes it better or worse. Related Data Home Medications Medication Instructions Recorded Confirmed Unobtainable 09/29/20 09/29/20 Allergies Allergy/AdvReac Type Severity Reaction Status Date / Time No Known Drug Allergies Allergy Verified 05/02/22 10:49 Review of Systems <DO Crissy Lagunas Last Filed: 05/02/22 20:51> Review of Systems ROS Unobtainable: All systems reviewed & are unremarkable except as noted in HPI and below Patient History <DO Crissy Lagunas Last Filed: 05/02/22 20:51> Medical History Drug abuse Schizophrenia Social History Smoking Status: Current every day smoker Smoking Status: Current every day smoker tobacco type: cigarettes alcohol intake frequency: other Substance Use Type: methamphetamine and unknown Exam <DO Crissy Lagunas Last Filed: 05/02/22 20:51> Initial Vital Signs Initial Vital Signs: Vital Signs Temperature 98.9 F 05/01/22 16:47 Pulse Rate 110 H 05/01/22 16:47 Respiratory Rate 20 05/01/22 16:47 Blood Pressure 203/113 H 05/01/22 16:47 Pulse Oximetry 98 05/01/22 16:47 Oxygen Delivery Method 05/01/22 16:47 GENERAL: Slightly disheveled 42-year-old distracted cleaning up all of her things in the room and in [no acute] distress. HEENT: Head atraumatic,EOMI, pupils reactive, face symmetric, [moist] mucous membranes CARDIOVASCULAR: Regular rate and rhythm without murmurs, rubs or gallops. Pain is non reproducible with palpation RESPIRATORY: Breath sounds equal bilaterally, no wheezes rales or rhonchi. ABDOMEN: Soft, nontender. Normoactive bowel sounds all 4 quadrants. No guarding or rebound. : No CVA tenderness EXTREMITIES: Normal range of motion, no clubbing or edema. Neurovascularly intact NEUROLOGICAL: Alert and oriented x4. SKIN: Warm, dry, no laceration, no petechiae, no rashes or lesions. <Cb Weber MD - Last Filed: 05/02/22 08:20> Initial Vital Signs Initial Vital Signs: Vital Signs Temperature 98.9 F 05/01/22 16:47 Pulse Rate 110 H 05/01/22 16:47 Respiratory Rate 20 05/01/22 16:47 Blood Pressure 203/113 H 05/01/22 16:47 Pulse Oximetry 98 05/01/22 16:47 Oxygen Delivery Method 05/01/22 16:47 Scores <Kaela Watkins DO - Last Filed: 05/02/22 20:51> HEART Score Heart Score Total: 2 <Cb Weber MD - Last Filed: 05/02/22 08:20> HEART Score Heart Score history: Slightly Suspicious Heart Score EKG: Non-Specific repolarization disturbance Heart Score Age: < 45 years old Heart Score risk factors: 1-2 risk factors Heart Score troponin: < or = to normal limit Heart Score Total: 2 Course <Kaela Watkins DO - Last Filed: 05/02/22 20:51> Orders Ordered: Discontinued Medications Haloperidol (Haloperidol 5 Mg/Ml Vial) 5 mg IM NOW ONE Stop: 05/01/22 18:27 Last Admin: 05/01/22 18:30 Dose: 5 mg Documented By: RAI Lorazepam (Lorazepam 2 Mg/Ml Inj) 1 mg IV NOW ONE Stop: 05/01/22 19:06 Last Admin: 05/01/22 19:19 Dose: 1 mg Documented By: KB Vital Signs Vital signs: Vital Signs - 8 hr 05/02/22 00:47 05/02/22 00:49 05/02/22 00:49 Pulse Rate 99 H 96 H Respiratory Rate 30 H 26 H Blood Pressure 172/106 H Pulse Oximetry 99 Oxygen Delivery Method Room Air 05/02/22 00:50 05/02/22 00:50 05/02/22 01:00 Pulse Rate 97 H Respiratory Rate 29 H Blood Pressure 176/103 H 166/100 H Pulse Oximetry 99 Oxygen Delivery Method Room Air 05/02/22 01:00 05/02/22 01:30 05/02/22 01:30 Pulse Rate 96 H 97 H Respiratory Rate 28 H 17 Blood Pressure 141/80 H Pulse Oximetry Oxygen Delivery Method 05/02/22 02:00 05/02/22 02:00 05/02/22 02:30 Pulse Rate 94 H Respiratory Rate 18 Blood Pressure 146/83 H 162/89 H Pulse Oximetry Oxygen Delivery Method 05/02/22 02:30 05/02/22 03:00 05/02/22 03:00 Pulse Rate 97 H 92 H Respiratory Rate 17 16 Blood Pressure 156/88 H Pulse Oximetry 96 Oxygen Delivery Method 05/02/22 03:30 05/02/22 03:30 05/02/22 04:00 Pulse Rate 93 H Respiratory Rate 16 Blood Pressure 142/90 H 154/94 H Pulse Oximetry 95 Oxygen Delivery Method Room Air 05/02/22 04:00 05/02/22 04:30 05/02/22 04:30 Pulse Rate 91 H 91 H Respiratory Rate 15 16 Blood Pressure 165/104 H Pulse Oximetry 95 96 Oxygen Delivery Method 05/02/22 05:00 05/02/22 05:00 05/02/22 05:30 Pulse Rate 94 H Respiratory Rate 19 Blood Pressure 166/89 H 150/91 H Pulse Oximetry Oxygen Delivery Method 05/02/22 05:30 05/02/22 06:00 05/02/22 06:00 Pulse Rate 98 H 91 H Respiratory Rate 18 20 Blood Pressure 142/82 H Pulse Oximetry 98 98 Oxygen Delivery Method 05/02/22 06:30 05/02/22 06:30 05/02/22 07:00 Pulse Rate 92 H 95 H Respiratory Rate 35 H 17 Blood Pressure 132/90 Pulse Oximetry 98 Oxygen Delivery Method Room Air 05/02/22 07:01 05/02/22 07:01 Pulse Rate 92 H Respiratory Rate 12 Blood Pressure 145/79 H Pulse Oximetry Oxygen Delivery Method <Cb Weber MD - Last Filed: 05/02/22 08:20> Orders Ordered: Discontinued Medications Haloperidol (Haloperidol 5 Mg/Ml Vial) 5 mg IM NOW ONE Stop: 05/01/22 18:27 Last Admin: 05/01/22 18:30 Dose: 5 mg Documented By: RAI Lorazepam (Lorazepam 2 Mg/Ml Inj) 1 mg IV NOW ONE Stop: 05/01/22 19:06 Last Admin: 05/01/22 19:19 Dose: 1 mg Documented By: RAI Vital Signs Vital signs: Vital Signs - 8 hr 05/02/22 00:47 05/02/22 00:49 05/02/22 00:49 Pulse Rate 99 H 96 H Respiratory Rate 30 H 26 H Blood Pressure 172/106 H Pulse Oximetry 99 Oxygen Delivery Method Room Air 05/02/22 00:50 05/02/22 00:50 05/02/22 01:00 Pulse Rate 97 H Respiratory Rate 29 H Blood Pressure 176/103 H 166/100 H Pulse Oximetry 99 Oxygen Delivery Method Room Air 05/02/22 01:00 05/02/22 01:30 05/02/22 01:30 Pulse Rate 96 H 97 H Respiratory Rate 28 H 17 Blood Pressure 141/80 H Pulse Oximetry Oxygen Delivery Method 05/02/22 02:00 05/02/22 02:00 05/02/22 02:30 Pulse Rate 94 H Respiratory Rate 18 Blood Pressure 146/83 H 162/89 H Pulse Oximetry Oxygen Delivery Method 05/02/22 02:30 05/02/22 03:00 05/02/22 03:00 Pulse Rate 97 H 92 H Respiratory Rate 17 16 Blood Pressure 156/88 H Pulse Oximetry 96 Oxygen Delivery Method 05/02/22 03:30 05/02/22 03:30 05/02/22 04:00 Pulse Rate 93 H Respiratory Rate 16 Blood Pressure 142/90 H 154/94 H Pulse Oximetry 95 Oxygen Delivery Method Room Air 05/02/22 04:00 05/02/22 04:30 05/02/22 04:30 Pulse Rate 91 H 91 H Respiratory Rate 15 16 Blood Pressure 165/104 H Pulse Oximetry 95 96 Oxygen Delivery Method 05/02/22 05:00 05/02/22 05:00 05/02/22 05:30 Pulse Rate 94 H Respiratory Rate 19 Blood Pressure 166/89 H 150/91 H Pulse Oximetry Oxygen Delivery Method 05/02/22 05:30 05/02/22 06:00 05/02/22 06:00 Pulse Rate 98 H 91 H Respiratory Rate 18 20 Blood Pressure 142/82 H Pulse Oximetry 98 98 Oxygen Delivery Method 05/02/22 06:30 05/02/22 06:30 05/02/22 07:00 Pulse Rate 92 H 95 H Respiratory Rate 35 H 17 Blood Pressure 132/90 Pulse Oximetry 98 Oxygen Delivery Method Room Air 05/02/22 07:01 05/02/22 07:01 Pulse Rate 92 H Respiratory Rate 12 Blood Pressure 145/79 H Pulse Oximetry Oxygen Delivery Method MDM - Chest Pain <Kaela Watkins DO - Last Filed: 05/02/22 20:51> Lab Data Labs: Lab Results 05/01/22 05/01/22 05/01/22 Range/Units 18:08 18:08 18:08 D-Dimer 1044 H (<500) ng/ml Troponin I < 0.012 (0.01-0.034) ng/mL Serum , Qual (Negative) SARS-CoV-2 (PCR) Negative (Negative) Influenza A (RT-PCR) Flu a negative (NEGATIVE) Influenza B (RT-PCR) Flu b negative (NEGATIVE) RSV (PCR) Negative (Negative) 05/01/22 Range/Units 18:08 D-Dimer (<500) ng/ml Troponin I (0.01-0.034) ng/mL Serum , Qual Negative (Negative) SARS-CoV-2 (PCR) (Negative) Influenza A (RT-PCR) (NEGATIVE) Influenza B (RT-PCR) (NEGATIVE) RSV (PCR) (Negative) Imaging Data CT scan - chest: Radiologist's Impression: CT Scan Report Signed Patient: Claire Dangelo MR#: [id number] : 1980 Acct:[id number] Age/Sex: 42 / F Date of Service: 05/01/22 Loc: ED Accession Number: [id number] ?? Procedure: CT angio chest abdomen pelvis Ordering Provider: Kaela Watkins D.O. PROCEDURE:? CT ANGIO CHEST ABDOMEN PELVIS ? INDICATIONS:? r/o disection high dimer HTN tachy ? TECHNIQUE:? Precontrast 5 mm thick sections acquired from the lung apices to the iliac crests.? After the administration of intravenous contrast, 2.5 mm thick sections again acquired from the lung apices to the iliac crests.? Maximum intensity projection (MIP) oblique sagittal and coronal reformats were then acquired.? For radiation dose reduction, the following was used:? automated exposure control.? ? COMPARISON:? None. ? FINDINGS:? Image quality:? Evaluation is limited by motion artifact.? ? AORTA:? Noncontrast images demonstrate no evidence of intramural hematoma.? The aorta is normal in caliber and contour without intimal flaps to suggest dissection.? There is conventional branching of the aortic arch.? The visualized great vessels are normal in caliber and appear patent.? The celiac, superior mesenteric, and inferior mesenteric arteries are patent.? There are single accessory renal arteries bilaterally.? The renal arteries all appear patent.? The common, external, and internal iliac arteries appear patent.? The common femoral and visualized proximal superficial femoral arteries appear patent. ? CHEST:? Lower Neck: No lymphadenopathy by size criteria. Thyroid:? Visualized thyroid demonstrates no discrete nodules. Axillae: No lymphadenopathy by size criteria. Chest Wall:? Unremarkable.? ? Lungs and Airways:? No acute consolidation.? There is mild atelectasis and scarring bilaterally.? In the left lower lobe, there is a 0.5 cm pulmonary nodule on series 7, image 143. The trachea and central airways are patent. Pleura: No pneumothorax or pleural effusions.? ? Heart: Heart size is normal.? No pericardial effusion. Thoracic Vessels: The pulmonary arteries demonstrate no filling defects to suggest central pulmonary embolism.? There is enlargement of the pulmonary arteries, with the main pulmonary artery measuring up to 3.4 cm suggestive of pulmonary arterial hypertension. Mediastinum and Helen: No lymphadenopathy by size criteria. Esophagus: No wall thickening. No hiatal hernia. ? ABDOMEN: Liver:? No mass lesion. Gallbladder:? Within normal limits without calcified gallstones.? ? Biliary ducts:? No biliary ductal dilatation.? ? Pancreas:? Unremarkable.? ? Spleen:? Normal in size.? ? Adrenal Glands:? No adrenal nodules.? ? Kidneys and Ureters:? There is severe left hydronephrosis with a transition at the ureteropelvic junction.? No obstructing stone or mass visualized.? There is associated delayed enhancement of the left kidney and mild left renal cortical thinning.? Right kidney demonstrates no hydronephrosis.? The ureters are nondistended bilaterally. ? Stomach and Bowel:? Stomach, small bowel loops, and colon are normal in caliber and wall thickness.? No evidence of appendicitis.? Peritoneum:? No abnormal intraperitoneal fluid.? No free air.? ? Ventral Wall: ? No hernia.? Abdominal Nodes:? No retroperitoneal or mesenteric adenopathy by size criteria.? Vessels:? Aorta and inferior vena cava are normal in size.? ? PELVIS: Pelvic Organs:? Unremarkable.? ? Bladder:? Unremarkable.? ? Pelvic Nodes: No enlarged lymph nodes.? Miscellaneous: No inguinal hernias are seen. ? ? ? Bones:? Visualized osseous structures demonstrate no suspicious focal lesions. ? ? IMPRESSION:? ? 1. No evidence of aortic aneurysm or dissection. ? 2. No evidence of central pulmonary embolism. ? 3. Severe left hydronephrosis with a transition at the ureteropelvic junction suggestive of a chronic UPJ obstruction.? No obstructing stone visualized. ? 4. No acute airspace consolidation. ? 5. Left lower lobe 0.5 cm pulmonary nodule.? Dictated by: Maxime Elizabeth M.D. on 05/01/2022 at 20:15 ? ? ECG Data Interpretation: Normal sinus rhythm rate 106 MT interval 138 QRS [address] changes no T- wave inversions incomplete right bundle-branch block similar to previous EKG earlier today MDM Narrative Medical decision making narrative: Patient 42-year-old female chronic his schizophrenia presenting today with chest pain. She was seen earlier but left [facility] she had blood work troponin and EKG which was overall reassuring. She is noted to be quite hypertensive and tachycardic. After reviewing her blood pressures pressure has slowly increased over the last month or so. She had a repeat EKG tonight a troponin and a D- dimer. Troponin is negative D-dimer is found to be greater than 1000. CT angio chest abdomen and pelvis did not show any dissection or pulmonary embolism. She is feeling unsafe and wanting Haldol she also needed some Ativan to help her calm down. Social work was in to see and evaluate her no acute or grave distress at this time. Patient will likely sleep till morning and be re- evaluated for discharge Signed out to Dr. Weber <Cb Weber MD - Last Filed: 05/02/22 08:20> Lab Data Labs: Lab Results 05/01/22 05/01/22 05/01/22 Range/Units 18:08 18:08 18:08 D-Dimer 1044 H (<500) ng/ml Troponin I < 0.012 (0.01-0.034) ng/mL Serum , Qual (Negative) SARS-CoV-2 (PCR) Negative (Negative) Influenza A (RT-PCR) Flu a negative (NEGATIVE) Influenza B (RT-PCR) Flu b negative (NEGATIVE) RSV (PCR) Negative (Negative) 05/01/22 Range/Units 18:08 D-Dimer (<500) ng/ml Troponin I (0.01-0.034) ng/mL Serum , Qual Negative (Negative) SARS-CoV-2 (PCR) (Negative) Influenza A (RT-PCR) (NEGATIVE) Influenza B (RT-PCR) (NEGATIVE) RSV (PCR) (Negative) MDM Narrative Medical decision making narrative: Patient 42-year-old female chronic his schizophrenia presenting today with chest pain. She was seen earlier but left [facility] she had blood work troponin and EKG which was overall reassuring. She is noted to be quite hypertensive and tachycardic. After reviewing her blood pressures pressure has slowly increased over the last month or so. She had a repeat EKG tonight a troponin and a D- dimer. Troponin is negative D-dimer is found to be greater than 1000. CT angio chest abdomen and pelvis did not show any dissection or pulmonary embolism. She is feeling unsafe and wanting Haldol she also needed some Ativan to help her calm down. Social work was in to see and evaluate her no acute or grave distre ss at this time. Patient will likely sleep till morning and be re-evaluated for discharge Signed out to Dr. Weber May 02, 2022 at 7:[address] Watkins, patient labs and imaging are reassuring. Social work has seen patient. No psychosocial issues to hold or detain or admit patient for at this time. Patient will need re-evaluation after medications given yesterday for anxiety/laboratory studies/imaging. Patient will likely be able to be discharged home for right-sided chest pain. Patient does have low heart score. Laboratory studies were reviewed, repeated troponins normal. EKGs have been reviewed with incomplete right bundle-branch block 2 EKGs were completed, no ST elevation or depression. 7:51 a.m.. Appropriate for discharge. Blood pressure has improved. 145/79. Patient awake and alert. Not combative not agitated. No complaints of chest pain. Up and walking by herself to the bathroom and back. She does have primary care and resources to follow up with. Spoke with patient results. She states she does not recall anybody in her family with heart disease. She is in no distress. Return precautions reviewed with her. She states she does have resources and primary care to follow up with. Return precautions reviewed with her. She desires discharge home Discharge Plan Departure Patient Disposition: Home Clinical Impression: Right-sided chest pain, Acute psychosis Instructions: DI for Chest Pain Activity Restrictions/Additional Instructions: Please see your family doctor this week for re-evaluation of your chest pain. At this time your laboratory studies and radiographic studies and EKGs have been reassuring. Please do continue home medications. Do not do drugs. Return if worse if any questions or concerns Prescriptions: No Action Unobtainable Referrals: Ele Rodgers MD [Primary Care Provider] - Stand Alone Forms: Patient Portal/API
[2022-05-01 18:27] VITALS: BP 205/120; PULSE 105; RESP 20; O2SAT 98
[2022-05-01] MEDS: HALOPERIDOL 5 MG/ML VIAL IM (18:30)
[2022-05-01 18:35] LABS: D Dimer 1044 ng/ml (<500)
--- NOTE | 2022-05-01 18:35 | PC.NURSE ---
1819 pt walked out of room heading towards [facility], intercepted by rn. pt has piv in arm. pt states im scared somebody is gonna get me do you see him. pt returned to room with nurse urging. rn removed piv in case pt does end up leaving. aware and came to room. 1832 pt medicated with im haldol 5mg. pt dressing in all of her clothing and keeps leaving and reentering er room, standing at doorway.
--- NOTE | 2022-05-01 18:52 | DI.CT.S_ITS ---
PROCEDURE: CT ANGIO CHEST ABDOMEN PELVIS INDICATIONS: r/o disection high dimer HTN tachy TECHNIQUE: Precontrast 5 mm thick sections acquired from the lung apices to the iliac crests. After the administration of intravenous contrast, 2.5 mm thick sections again acquired from the lung apices to the iliac crests. Maximum intensity projection (MIP) oblique sagittal and coronal reformats were then acquired. For radiation dose reduction, the following was used: automated exposure control. COMPARISON: None. FINDINGS: Image quality: Evaluation is limited by motion artifact. AORTA: Noncontrast images demonstrate no evidence of intramural hematoma. The aorta is normal in caliber and contour without intimal flaps to suggest dissection. There is conventional branching of the aortic arch. The visualized great vessels are normal in caliber and appear patent. The celiac, superior mesenteric, and inferior mesenteric arteries are patent. There are single accessory renal arteries bilaterally. The renal arteries all appear patent. The common, external, and internal iliac arteries appear patent. The common femoral and visualized proximal superficial femoral arteries appear patent. CHEST: Lower Neck: No lymphadenopathy by size criteria. Thyroid: Visualized thyroid demonstrates no discrete nodules. Axillae: No lymphadenopathy by size criteria. Chest Wall: Unremarkable. Lungs and Airways: No acute consolidation. There is mild atelectasis and scarring bilaterally. In the left lower lobe, there is a 0.5 cm pulmonary nodule on series 7, image 143. The trachea and central airways are patent. Pleura: No pneumothorax or pleural effusions. Heart: Heart size is normal. No pericardial effusion. Thoracic Vessels: The pulmonary arteries demonstrate no filling defects to suggest central pulmonary embolism. There is enlargement of the pulmonary arteries, with the main pulmonary artery measuring up to 3.4 cm suggestive of pulmonary arterial hypertension. Mediastinum and Helen: No lymphadenopathy by size criteria. Esophagus: No wall thickening. No hiatal hernia. ABDOMEN: Liver: No mass lesion. Gallbladder: Within normal limits without calcified gallstones. Biliary ducts: No biliary ductal dilatation. Pancreas: Unremarkable. Spleen: Normal in size. Adrenal Glands: No adrenal nodules. Kidneys and Ureters: There is severe left hydronephrosis with a transition at the ureteropelvic junction. No obstructing stone or mass visualized. There is associated delayed enhancement of the left kidney and mild left renal cortical thinning. Right kidney demonstrates no hydronephrosis. The ureters are nondistended bilaterally. Stomach and Bowel: Stomach, small bowel loops, and colon are normal in caliber and wall thickness. No evidence of appendicitis. Peritoneum: No abnormal intraperitoneal fluid. No free air. Ventral Wall: No hernia. Abdominal Nodes: No retroperitoneal or mesenteric adenopathy by size criteria. Vessels: Aorta and inferior vena cava are normal in size. PELVIS: Pelvic Organs: Unremarkable. Bladder: Unremarkable. Pelvic Nodes: No enlarged lymph nodes. Miscellaneous: No inguinal hernias are seen. Bones: Visualized osseous structures demonstrate no suspicious focal lesions. IMPRESSION: 1. No evidence of aortic aneurysm or dissection. 2. No evidence of central pulmonary embolism. 3. Severe left hydronephrosis with a transition at the ureteropelvic junction suggestive of a chronic UPJ obstruction. No obstructing stone visualized. 4. No acute airspace consolidation. 5. Left lower lobe 0.5 cm pulmonary nodule. Dictated by: Maxime Elizabeth M.D. on 05/01/2022 at 20:15 Approved by: Maxime Elizabeth M.D. on 05/01/2022 at 20:25
[2022-05-01 18:54] LABS: Troponin I < 0.012 ng/mL (0.01-0.034)
[2022-05-01 19:04] LABS: Influenza A - CEPHEID Flu A NEGATIVE (NEGATIVE); Influenza B - CEPHEID Flu B NEGATIVE (NEGATIVE); Respiratory Syncytial Virus Negative (Negative)
[2022-05-01 19:05] LABS: COVID-19 CEPHEID 4-PLEX PCR Negative (Negative)
[2022-05-01 19:14] LABS: Pregnancy Test Serum,Qual Negative (Negative)
[2022-05-01] MEDS: LORazepam 2 MG/ML INJ 1 MG IV (19:19)
--- NOTE | 2022-05-01 19:20 | CM.SWNOTE ---
INDUSTRIAL ENG Assessment Note Patient is 42 y/o female who presents to ED due to concern for chest pain, this is patient's 2nd ED presentation today. Patient has hx of over 75 ED encounters related to paranoia, feeling scared. Patient has hx of Methamphetamine use and Schizophrenia. Patient presents as Euthymic, full range, Patient states I haven't been feeling well, patient endorses concern for her safety but does not endorse why she feels unsafe. Patient requests ride to [facility] to the long-term she is staying at in [place], to transfer to hospital or to stay in ED all night. Patient endorses she met with PACT team yesterday for her medication but not today, patient was given Haldol in ED. Patient denies SI, HI or self harm. Patient denies current hallucinations. Patient endorses she feels scared and wants to be safe. Patient is not medically clear at this time and presents with some abnormal labs. Plan: ED provider to further evaluate patient for medical clearance, patient likely to d/c to community. JENNY Rogers
[2022-05-02] VITALS (17 sets, daily range): BP systolic 132–176; BP diastolic 79–106; PULSE 91–99; RESP 12–35; O2SAT 95–99
== END 2022-05-02 08:01 | disposition home or self-care (01) ==
PROVIDERS: Emergency Medicine; Emergency Provider Emergency Medicine; Family Provider Family Medicine; PCP Family Medicine
DX: R07.9 Chest pain, unspecified (principal); I10 Essential (primary) hypertension; R00.0 Tachycardia, unspecified; Z20.822 Contact with and (suspected) exposure to COVID-19
CPT/HCPCS: 0241U; 36415; 71045; 71275; 74174; 80053; 82550; 83690; 83735; 84484; 84703; 85025; 85379; 85610; 85730; 93005; 93010; 96372; 96374; 99284; J1630; J2060; Q9967

== ENCOUNTER 2022-05-02 10:48 | Emergency (ER) | payer OTHER, MEDICAID, SELFPAY ==
[2022-05-02 10:49] VITALS: BP 159/106; PULSE 96; RESP 15; TEMP 36.3; O2SAT 96
== END 2022-05-02 11:52 | disposition left against medical advice (07) ==
PROVIDERS: Emergency Provider Emergency Medicine; Family Provider Family Medicine; PCP Family Medicine
CPT/HCPCS: 99281

== ENCOUNTER 2022-05-05 09:53 | Emergency (ER) | payer OTHER, MEDICAID, SELFPAY ==
[2022-05-05 10:20] VITALS: BP 136/74; PULSE 97; RESP 16; TEMP 36.4; O2SAT 99; BMI 28.7
--- NOTE | 2022-05-05 14:26 | PC.NURSE ---
pt states she was going to leave [facility]. Not visualized in waiting area when called. Found to be in bathroom. Pt waiting out in WR NAD.
== END 2022-05-05 14:31 | disposition left against medical advice (07) ==
PROVIDERS: Emergency Provider Emergency Medicine; Family Provider Family Medicine; PCP Family Medicine
CPT/HCPCS: 99281

== ENCOUNTER 2022-05-05 15:18 | Emergency (ER) | payer OTHER, MEDICAID, SELFPAY ==
[2022-05-05 15:24] VITALS: TEMP 36.1
--- NOTE | 2022-05-05 18:06 | PC.NURSE ---
Called pt from waiting area to meet with [employer] and pt is outside building per registration. This is patients 2nd visit to ED today and 2nd time leaving the building. Pt was told at triage she cannot leave building if she desires to be seen.
--- NOTE | 2022-05-05 18:14 | PC.NURSE ---
Pt in registration area and brought back to 3 to meet with WYATT Dempsey. Pt appears under the influence since her first triage from her first visit this afternoon. Hallucinating and unable to be reasoned with or have a coherent conversation. Attempted to orient pt reality unsuccessfully and pt got angry and walked out of ED with steady gait. Removed from tracker [facility].
--- NOTE | 2022-05-05 18:14 | CM.SWNOTE ---
SHARED SERVICES REPRESENTATIVE Note Patient presented to ED twice today and left without being seen. SHARED SERVICES REPRESENTATIVE unable to evaluate patient prior to leaving. SHARED SERVICES REPRESENTATIVE to f/u with [facility] and ED director regarding collaborating with PACT team. JENNY Rogers
== END 2022-05-05 18:21 | disposition left against medical advice (07) ==
PROVIDERS: Emergency Provider Emergency Medicine; Family Provider Family Medicine; PCP Family Medicine
CPT/HCPCS: 99281

== ENCOUNTER 2022-05-08 00:34 | Emergency (ER) | payer OTHER, MEDICAID, SELFPAY ==
[2022-05-08 00:39] VITALS: BP 166/95; PULSE 96; RESP 22; TEMP 36.4; O2SAT 99; BMI 26.6
--- NOTE | 2022-05-08 00:55 | ED.PSYCH ---
HPI - Psych General Chief Complaint: Psychiatric Symptoms Stated Complaint: SCARED Time Seen by Provider: 05/08/22 00:53 Source: patient Mode of arrival: Ambulatory Limitations: altered mental status History of Present Illness HPI Narrative: Patient is a 42-year-old female well known to my self. Has a history of drug abuse and schizophrenia. She arrives to the emergency department today saying that she is ?scared? she presents very similar to conditions she is been evaluated for the past. She provides limited HPI in his obviously responding to internal stimuli. She states that she feels like she is being chased which is a common complaint for her. She is amenable to medications. Related Data Home Medications Medication Instructions Recorded Confirmed Unobtainable 09/29/20 09/29/20 Allergies Allergy/AdvReac Type Severity Reaction Status Date / Time No Known Drug Allergies Allergy Verified 05/02/22 10:49 Review of Systems Review of Systems Narrative: Limited given her presenting mental status Psychiatric Psychiatric: Reports system reviewed and no additional complaints, except as documented Patient History Medical History Drug abuse Schizophrenia Social History Smoking Status: Current every day smoker Smoking Status: Current every day smoker tobacco type: cigarettes alcohol intake frequency: other Substance Use Type: methamphetamine and unknown Exam Initial Vital Signs Initial Vital Signs: Vital Signs Temperature 97.6 F 05/08/22 00:39 Pulse Rate 96 H 05/08/22 00:39 Respiratory Rate 22 05/08/22 00:39 Blood Pressure 166/95 H 05/08/22 00:39 Pulse Oximetry 99 05/08/22 00:39 Oxygen Delivery Method 05/08/22 00:39 HENMT Head: normal to inspection and normocephalic Resp Effort & Inspection: normal respiratory effort Cardio Rate: regular rate Psych Other: Patient is disheveled. Is obviously responding to internal stimuli. She is talking to herself. Is reaching out for individuals and objects. Course Orders Ordered: ED Orders 05/08/22 00:47 Consult to SALES DRIVER - Director Of Academic Stat Discontinued Medications Haloperidol (Haloperidol 5 Mg/Ml Vial) 5 mg IM NOW ONE Stop: 05/08/22 00:56 Last Admin: 05/08/22 01:05 Dose: 5 mg Documented By: ADA Vital Signs Vital signs: Vital Signs - 8 hr 05/08/22 00:39 Temperature 97.6 F Pulse Rate 96 H Respiratory Rate 22 Blood Pressure 166/95 H Pulse Oximetry 99 Oxygen Delivery Method Room Air MDM - Psych MDM Narrative Medical decision making narrative: Upon arrival the patient is presenting very similar to what she has in the past. He has been calm and since receiving the IM Haldol she is been sleeping in the room. She woke up, walked into the exam room next to hers and proceeded to urinate on the floor. When she was informed that that was in the bathroom she stated ?someone will clean it up?. Given her presentations in the past and how she presents today we will hold on social work consult. Will discharge patient. Discharge Plan Departure Patient Disposition: Home Clinical Impression: Chronic schizophrenia Activity Restrictions/Additional Instructions: I recommend that you continue to take all of your medications as directed. Return to the emergency department for new symptoms. Prescriptions: No Action Unobtainable Referrals: Ele Rodgers MD [Primary Care Provider] - Stand Alone Forms: Patient Portal/API
[2022-05-08] MEDS: HALOPERIDOL 5 MG/ML VIAL IM (01:05)
--- NOTE | 2022-05-08 04:01 | PC.NURSE ---
Pt came out of her room the to go to the BR, 2 nurses and the [facility] attempted to direct her to the BR, she went into rm 11, was just inside the door, pulled down her pants and urinated on the floor.
--- NOTE | 2022-05-08 04:12 | PC.NURSE ---
TAX LAWYER note: [place] RNs talking to Khoi. Walked over to see what was happening. Patient had pulled down pants in the space between the trash can and the door way of room 11, and was urinating. I told her Hey, let's not do that. She looked me in the eye and said Someone will clean it up, as she voided. I said me, I'm the one going to have to clean it up. Patient pulled up her pants, said don't kick me out, and walked back into her room and fell asleep. Told RNs and doctor of the conversation.
[2022-05-08 04:24] VITALS: BP 160/79; PULSE 80; RESP 20; O2SAT 97
== END 2022-05-08 04:25 | disposition home or self-care (01) ==
PROVIDERS: Emergency Provider Emergency Medicine; Family Provider Family Medicine; PCP Family Medicine
DX: F20.9 Schizophrenia, unspecified (principal)
CPT/HCPCS: 96372; 99283; J1630

== ENCOUNTER 2022-05-11 19:08 | Emergency (ER) | payer OTHER, MEDICAID, SELFPAY ==
[2022-05-11 19:13] VITALS: BP 211/93; PULSE 100; RESP 18; TEMP 36.7; O2SAT 98; BMI 26.6
--- NOTE | 2022-05-11 19:20 | DI.RAD.S_ITS ---
PROCEDURE: XR CHEST 1V INDICATIONS: chest pain TECHNIQUE: One view of the chest was acquired. COMPARISON: [facility], CR, XR CHEST 1V, 05/01/2022, 12:18. FINDINGS: Surgical changes and devices: None. Lungs and pleura: Lungs are clear. No pleural effusions or pneumothorax. Mediastinum: Mediastinal contours appear normal. Heart size is normal. Bones and chest wall: No suspicious bony lesions. Overlying soft tissues appear unremarkable. Old healed posterolateral right mid chest rib fracture. IMPRESSION: Old healed rib fracture on the right, mid chest level, no source of acute onset chest pain is seen. Dictated by: Jose Lawrence M.D. on 05/11/2022 at 19:58 Approved by: Jose Lawrence M.D. on 05/11/2022 at 19:59
[2022-05-11 19:43] LABS: Add Manual Diff / Slide Review NO; Basophils Absolute Auto 100 /uL (0-100); Basophils Percent Auto 0.8 % (0-2); Eosinophils Absolute Auto 800 /uL (0-450); Eosinophils Percent Auto 10.7 % (2-4); Hemoglobin 11.4 g/dL (12.0-16.0); Lymphocytes Absolute Auto 1600 /uL (1100-4500); Lymphocytes Percent Auto 20.1 % (25-40); Mean Corpuscular HGB Conc 33.6 % (30-36); Mean Corpuscular Hemoglobin 27.4 PG (26-34); Mean Corpuscular Volume 81.5 fL (80-100); Monocytes Absolute Auto 400 /uL (0-900); Monocytes Percent Auto 5.4 % (3-14); Neutrophils Absolute Auto 5000 /uL (1500-7000); Platelet Count 413 X10^3/uL (150-400); Red Blood Cell Count 4.17 X10^6/uL (4.0-5.2); Red Cell Distribution Width 15.9 % (11.6-14.8); White Blood Cell Count 7.9 X10^3/uL (4.5-11.0)
[2022-05-11 19:47] LABS: Prothrombin Time 11.1 SECONDS (10.1-12.7)
[2022-05-11 19:49] LABS: PTT Partial Thromboplastin Tim 34 SECONDS (26-36)
[2022-05-11 19:51] LABS: Alanine Aminotransferase 18 IU/L (<35); Albumin 4.1 g/dL (3.5-5.0); Albumin Globulin Ratio 1.3 (1.0-2.8); Alkaline Phosphatase 73 U/L (38-126); Aspartate Aminotransferase 22 IU/L (14-36); BUN Creatinine Ratio 20.8 (6-22); Bilirubin Total 0.5 mg/dL (0.2-1.3); Blood Urea Nitrogen 15 mg/dL (7-17); Calcium 8.4 mg/dL (8.4-10.2); Carbon Dioxide 28 mmol/L (22-32); Chloride 100 mmol/L (98-107); Creatine Kinase 51 U/L (30-135); Estimated Glomerular Filt Rate > 60 mL/min (>60); Globulin 3.1 g/dL (1.7-4.1); Glucose 109 mg/dL (70-100); HEMOLYSIS < 15 (0-50); Lipase 95 U/L (23-300); Magnesium 2.2 mg/dL (1.6-2.3); Potassium 3.7 mmol/L (3.4-5.1); Sodium 135 mmol/L (137-145); Total Protein 7.2 g/dL (6.3-8.2)
[2022-05-11 20:02] LABS: Troponin I < 0.012 ng/mL (0.01-0.034)
--- NOTE | 2022-05-11 20:25 | ED_ITS ---
HPI - Chest Pain General Chief Complaint: Chest Pain Stated Complaint: Feeling sick/scared Time Seen by Provider: 05/11/22 20:25 Source: patient, RN notes reviewed and old records reviewed Mode of arrival: Ambulatory Limitations: no limitations History of Present Illness HPI narrative: This is a 42-year-old female well-known to the department with history chronic schizophrenia and drug abuse who presents with complaint of chest pain patient states she is feeling scared today. She does indicate she has chest discomfort she describes it as substernal without radiation. Mild shortness of breath, no nausea or vomiting. No diaphoresis. She denies any swelling of her extremities. No abdominal back or flank pain. She denies any diarrhea constipation. Patient denies any other symptoms. Patient denies any cocaine use, she denies methamphetamines any time recently but has tested positive on recent visits. She states she has not had her regular medication for the past week. Patient does not take medication for blood pressure, cholesterol or diabetes. She does use tobacco. Related Data Home Medications Medication Instructions Recorded Confirmed Unobtainable 09/29/20 09/29/20 Allergies Allergy/AdvReac Type Severity Reaction Status Date / Time No Known Drug Allergies Allergy Verified 05/02/22 10:49 Review of Systems Review of Systems ROS Unobtainable: All systems reviewed & are unremarkable except as noted in HPI and below Patient History Medical History Drug abuse Schizophrenia Social History Smoking Status: Current every day smoker Smoking Status: Current every day smoker tobacco type: cigarettes alcohol intake frequency: other Substance Use Type: methamphetamine and unknown Exam Narrative Exam Narrative: GENERAL: Alert and oriented x three, disheveled female, calm cooperative. HEENT: Head normocephalic, atraumatic, EOMI, pupils reactive, face symmetric, moist mucous membranes NECK: Supple, full range of motion CARDIOVASCULAR: Regular rate and rhythm without murmurs, rubs or gallops. No reproducible chest pain. No swelling. RESPIRATORY: Breath sounds equal bilaterally, no wheezes rales or rhonchi. ABDOMEN: Soft, nontender. Normoactive bowel sounds all 4 quadrants. No guarding or rebound, rigidity, no mass : No CVA tenderness EXTREMITIES: Normal range of motion, no clubbing or edema. Neurovascularly intact NEUROLOGICAL: Cranial nerves II through XII grossly intact. Moving all extremities SKIN: Warm, dry, no petechiae, no rashes or lesions. Initial Vital Signs Initial Vital Signs: Vital Signs Temperature 98.1 F 05/11/22 19:13 Pulse Rate 100 H 05/11/22 19:13 Respiratory Rate 18 05/11/22 19:13 Blood Pressure 211/93 H 05/11/22 19:13 Pulse Oximetry 98 05/11/22 19:13 Oxygen Delivery Method 05/11/22 19:13 Course Orders Ordered: ED Orders 05/11/22 21:33 Trop I [Troponin I] Stat Discontinued Medications Haloperidol (Haloperidol 5 Mg/Ml Vial) 5 mg IM NOW ONE Stop: 05/11/22 20:59 Last Admin: 05/11/22 21:21 Dose: 5 mg Documented By: KAMRAN Vital Signs Vital signs: Vital Signs - 8 hr 05/11/22 21:06 05/11/22 21:17 05/11/22 21:30 Pulse Rate 94 H Respiratory Rate 13 Blood Pressure 170/88 H 138/76 Pulse Oximetry 98 05/11/22 21:30 05/11/22 22:00 05/11/22 22:13 Pulse Rate 92 H 93 H 94 H Respiratory Rate 14 18 15 Blood Pressure Pulse Oximetry 98 05/11/22 22:13 Pulse Rate Respiratory Rate Blood Pressure 137/75 Pulse Oximetry MDM - Chest Pain Lab Data 05/11/22 19:30 05/11/22 19:30 Labs: Lab Results 05/11/22 05/11/22 05/11/22 Range/Units 19:30 19:30 19:30 WBC 7.9 (4.5-11.0) X10^3/uL RBC 4.17 (4.0-5.2) X10^6/uL Hgb 11.4 L (12.0-16.0) g/dL Hct 34.0 L (36-46) % MCV 81.5 (80-100) fL MCH 27.4 (26-34) PG MCHC 33.6 (30-36) % RDW 15.9 H (11.6-14.8) % Plt Count 413 H (150-400) X10^3/uL Neut % (Auto) 63.0 (50-75) % Lymph % (Auto) 20.1 L (25-40) % [place] % (Auto) 5.4 (3-14) % Eos % (Auto) 10.7 H (2-4) % Baso % (Auto) 0.8 (0-2) % Neut # (Auto) 5000 (7886-2933) /uL Lymph # (Auto) 1600 (5776-6320) /uL [place] # (Auto) 400 (0-900) /uL Eos # (Auto) 800 H (0-450) /uL Baso # (Auto) 100 (0-100) /uL PT 11.1 (10.1-12.7) SECONDS INR 1.0 (0.9-1.3) APTT 34 (26-36) SECONDS Sodium 135 L (137-145) mmol/L Potassium 3.7 (3.4-5.1) mmol/L Chloride 100 (98-107) mmol/L Carbon Dioxide 28 (22-32) mmol/L BUN 15 (7-17) mg/dL Creatinine 0.72 (0.52-1.04) mg/dL Estimated GFR > 60 (>60) mL/min BUN/Creatinine Ratio 20.8 (6-22) Glucose 109 H (70-100) mg/dL Calcium 8.4 (8.4-10.2) mg/dL Magnesium 2.2 (1.6-2.3) mg/dL Total Bilirubin 0.5 (0.2-1.3) mg/dL AST 22 (14-36) IU/L ALT 18 (<35) IU/L Alkaline Phosphatase 73 (38-126) U/L Total Creatine Kinase 51 (30-135) U/L CK-MB (CK-2) TNP CK-MB (CK-2) Rel Index TNP Troponin I < 0.012 (0.01-0.034) ng/mL Total Protein 7.2 (6.3-8.2) g/dL Albumin 4.1 (3.5-5.0) g/dL Globulin 3.1 (1.7-4.1) g/dL Albumin/Globulin Ratio 1.3 (1.0-2.8) Lipase 95 (23-300) U/L / Range/Units 21:33 WBC (4.5-11.0) X10^3/uL RBC (4.0-5.2) X10^6/uL Hgb (12.0-16.0) g/dL Hct (36-46) % MCV (80-100) fL MCH (26-34) PG MCHC (30-36) % RDW (11.6-14.8) % Plt Count (150-400) X10^3/uL Neut % (Auto) (50-75) % Lymph % (Auto) (25-40) % [place] % (Auto) (3-14) % Eos % (Auto) (2-4) % Baso % (Auto) (0-2) % Neut # (Auto) (7970-4000) /uL Lymph # (Auto) (1248-4361) /uL [place] # (Auto) (0-900) /uL Eos # (Auto) (0-450) /uL Baso # (Auto) (0-100) /uL PT (10.1-12.7) SECONDS INR (0.9-1.3) APTT (26-36) SECONDS Sodium (137-145) mmol/L Potassium (3.4-5.1) mmol/L Chloride (98-107) mmol/L Carbon Dioxide (22-32) mmol/L BUN (7-17) mg/dL Creatinine (0.52-1.04) mg/dL Estimated GFR (>60) mL/min BUN/Creatinine Ratio (6-22) Glucose (70-100) mg/dL Calcium (8.4-10.2) mg/dL Magnesium (1.6-2.3) mg/dL Total Bilirubin (0.2-1.3) mg/dL AST (14-36) IU/L ALT (<35) IU/L Alkaline Phosphatase (38-126) U/L Total Creatine Kinase (30-135) U/L CK-MB (CK-2) CK-MB (CK-2) Rel Index Troponin I < 0.012 (0.01-0.034) ng/mL Total Protein (6.3-8.2) g/dL Albumin (3.5-5.0) g/dL Globulin (1.7-4.1) g/dL Albumin/Globulin Ratio (1.0-2.8) Lipase (23-300) U/L Imaging Data Chest x-ray: Radiologist's Impression: [address] [address] XRay Report Signed Patient: Claire Dangelo MR#: [id number] : 1980 Acct:[id number] Age/Sex: 42 / F Date of Service: 05/11/22 Loc: ED Accession Number: [id number] ?? Procedure: XR chest 1V Ordering Provider: Cassidy Coleman D.O. PROCEDURE:? XR CHEST 1V ? INDICATIONS:? chest pain ? TECHNIQUE:? One view of the chest was acquired.? ? COMPARISON:? [facility], CR, XR CHEST 1V, 05/01/2022, 12:18. ? FINDINGS:? ? Surgical changes and devices:? None.? ? Lungs and pleura:? Lungs are clear.? No pleural effusions or pneumothorax.? ? Mediastinum:? Mediastinal contours appear normal.? Heart size is normal.? ? Bones and chest wall:? No suspicious bony lesions.? Overlying soft tissues appear unremarkable.? Old healed posterolateral right mid chest rib fracture. ? IMPRESSION:? Old healed rib fracture on the right, mid chest level, no source of acute onset chest pain is seen. ? ? Dictated by: Jose Lawrence M.D. on 05/11/2022 at 19:58 ? ? Approved by: Jose Lawrence M.D. on 05/11/2022 at 19:59? ECG Data Attestation: I personally reviewed and interpreted this ECG as follows: Prior ECG tracings: available for review Interpretation: Sinus rhythm incomplete right bundle. Rate of 95 ID 130 QRS of [address] changes. Sinus rhythm rate 80 9p are 140 QRS [address] No acute [address] changes appr eciated. No dynamic changes. Still MDM Narrative Medical decision making narrative: This is a 42-year-old female with known schizophrenia and drug abuse who presents with complaint of feeling sick and scared. Patient states she feels scared and indicates in that this is her normal scared really to her schizophrenia and feeling paranoid. But she also indicates that she has some chest pain today. Initial blood pressure was quite elevated, repeat Patient's workup including CBC, CMP, troponin LFTs and lipase is negative. Patient has a healed right rib fracture on chest x-ray. EKG shows incomplete right bundle appears similar to prior from 05/01/[address] changes. She was seen on 05/02/2022 complaining of chest pain and had significant workup with an elevated dimer and a CT angio chest abdomen pelvis negative chest they did note that there is a 0.5 cm pulmonary nodule, some enlargement of the pulm onary arteries and left what appears to be chronic hydro without any stone. Patient does not indicate any abdominal, back or flank pain today. She is actually quite calm, cooperative. Patient does appear improved from her typical baseline in terms of her schizophrenia. She does request a dose of her medication she prefers IM Haldol over Zyprexa. Discharge Plan Departure Patient Disposition: Home Clinical Impression: Chest pain Activity Restrictions/Additional Instructions: I would recommend that you follow-up. Please follow-up with your PACT team as well. Please continue your medications. You may return for any new or worsening symptoms or changes. Prescriptions: No Action Unobtainable Referrals: Ele Rodgers MD [Primary Care Provider] - Stand Alone Forms: Patient Portal/API
[2022-05-11 21:06] VITALS: BP 170/88
[2022-05-11 21:17] VITALS: PULSE 94; RESP 13; O2SAT 98
[2022-05-11] MEDS: HALOPERIDOL 5 MG/ML VIAL IM (21:21)
[2022-05-11 21:30] VITALS: BP 138/76; PULSE 92; RESP 14; O2SAT 98
[2022-05-11 22:00] VITALS: PULSE 93; RESP 18
[2022-05-11 22:02] LABS: Troponin I < 0.012 ng/mL (0.01-0.034)
[2022-05-11 22:13] VITALS: BP 137/75; PULSE 94; RESP 15
== END 2022-05-11 22:25 | disposition home or self-care (01) ==
PROVIDERS: Emergency Provider Emergency Medicine; Family Provider Family Medicine; PCP Family Medicine
DX: R07.9 Chest pain, unspecified (principal); F20.9 Schizophrenia, unspecified
CPT/HCPCS: 36415; 71045; 80053; 82550; 83690; 83735; 84484; 85025; 85610; 85730; 93005; 93010; 96372; 99282; 99283; 99284; J1630

== ENCOUNTER 2022-05-11 23:39 | Emergency (ER) | payer OTHER, MEDICAID, SELFPAY ==
[2022-05-11 23:47] VITALS: BP 172/100; PULSE 91; RESP 16; TEMP 36.6; O2SAT 100; BMI 26.6
--- NOTE | 2022-05-12 05:20 | ED.PSYCH ---
HPI - Psych General Chief Complaint: Psychiatric Symptoms Stated Complaint: ''HEART ATTACK Time Seen by Provider: 05/12/22 03:54 Mode of arrival: Ambulatory History of Present Illness HPI Narrative: Is a 42-year-old female with known history of schizophrenia and chronic drug abuse. 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 Patient denies any suicidal ideation or homicidal ideation. She is not complaining of chest pain currently. She denies other symptoms other than feeling like she might want to be seen at another facility for psychiatric placement but after she contemplated for some period of time she feels she does not wish to be placed. Related Data Home Medications Medication Instructions Recorded Confirmed Unobtainable 09/29/20 09/29/20 Allergies Allergy/AdvReac Type Severity Reaction Status Date / Time No Known Drug Allergies Allergy Verified 05/02/22 10:49 Review of Systems Review of Systems ROS Unobtainable: All systems reviewed & are unremarkable except as noted in HPI and below Patient History Medical History Drug abuse Schizophrenia Social History Smoking Status: Current every day smoker Smoking Status: Current every day smoker tobacco type: cigarettes alcohol intake frequency: other Substance Use Type: methamphetamine and unknown Exam Narrative Exam Narrative: GENERAL: Alert and oriented x three, disheveled female, calm cooperative. Conversant. HEENT: Head normocephalic, atraumatic, EOMI, pupils reactive, face symmetric, moist mucous membranes NECK: Supple, full range of motion CARDIOVASCULAR: Regular rate and rhythm without murmurs, rubs or gallops. RESPIRATORY: Breath sounds equal bilaterally, no wheezes rales or rhonchi. ABDOMEN: Soft, nontender. Normoactive bowel sounds all 4 quadrants. No guarding or rebound, rigidity, no mass : No CVA tenderness EXTREMITIES: Normal range of motion, no clubbing or edema. Neurovascularly intact NEUROLOGICAL: Cranial nerves II through XII grossly intact. Moving all extremities SKIN: Warm, dry, no petechiae, no rashes or lesions. PSYCH: Patient expresses paranoid thoughts, no suicidal ideation or intent, no homicidal. Patient does not seem to be responding to external stimuli at this time. Initial Vital Signs Initial Vital Signs: Vital Signs Temperature 97.9 F 05/11/22 23:47 Pulse Rate 91 H 05/11/22 23:47 Respiratory Rate 16 05/11/22 23:47 Blood Pressure 172/100 H 05/11/22 23:47 Pulse Oximetry 100 05/11/22 23:47 Oxygen Delivery Method 05/11/22 23:47 Course Orders Ordered: ED Orders 05/12/22 05:18 Consult to GLASS MECHANIC - Miscellaneous Machine Operator Stat COVID19 -Nasal RAPID/Pre-Proc Stat Urine Drug Screen, Rapid Stat Vital Signs Vital signs: Vital Signs - 8 hr 05/11/22 23:47 Temperature 97.9 F Pulse Rate 91 H Respiratory Rate 16 Blood Pressure 172/100 H Pulse Oximetry 100 Oxygen Delivery Method Room Air MDM - Psych MDM Narrative Medical decision making narrative: This is a 42-year-old female who presents with history of chronic schizophrenia patient indicates that she does not feel safe when asked what that means she feels pursued and has paranoid thoughts. She expressed some interest involuntary placement but then changed her mind. She had a dose of Haldol IM earlier. She does not appear to be off her baseline or significantly disabled from usual status at this time. I do not feel that patient is appropriate for [facility] via [facility]. Discharge Plan Departure Patient Disposition: Home Clinical Impression: Schizophrenia Activity Restrictions/Additional Instructions: Please meet with your PACT team to take your medications. Prescriptions: No Action Unobtainable Referrals: Ele Rodgers MD [Primary Care Provider] - Stand Alone Forms: Patient Portal/API
== END 2022-05-12 05:40 | disposition home or self-care (01) ==
PROVIDERS: Emergency Provider Emergency Medicine; Family Provider Family Medicine; PCP Family Medicine
DX: F20.9 Schizophrenia, unspecified (principal)
CPT/HCPCS: 93010; 99283

== ENCOUNTER 2022-05-12 21:22 | Emergency (ER) | payer OTHER, MEDICAID, SELFPAY ==
[2022-05-12 21:32] VITALS: BP 171/104; PULSE 98; RESP 14; TEMP 36.9; O2SAT 98; BMI 58.6
--- NOTE | 2022-05-12 21:45 | PC.NURSE ---
Patient states that she is not suicidal but she not feel safe today since she lives in [place] and has no ride home tonight and would sleeping outside. That makes her feel unsafe.
--- NOTE | 2022-05-13 06:27 | PC.NURSE ---
resting in recliner, eyes closed, resp even unlabored.
--- NOTE | 2022-05-13 07:12 | ED.CHESTPAIN ---
HPI - Chest Pain General Chief Complaint: Chest Pain Stated Complaint: Elevated HR Time Seen by Provider: 05/13/22 02:46 Source: patient Mode of arrival: Ambulatory Limitations: no limitations History of Present Illness HPI narrative: 42-year-old female smoker with history of methamphetamine abuse, schizophrenia and frequent hospitalizations for the same presents with a chief complaint of feeling anxious, not safe as if someone is chasing her. She states that she does not think she is been taking her medications quite as regularly as she should. She is been staying with friends in [place] but wanted to come here because this is where she feels safe. She denies any suicidal or homicidal ideations. Related Data Home Medications Medication Instructions Recorded Confirmed Unobtainable 09/29/20 09/29/20 Allergies Allergy/AdvReac Type Severity Reaction Status Date / Time No Known Drug Allergies Allergy Verified 05/02/22 10:49 Review of Systems Review of Systems Narrative: GENERAL: Denies chills, fatigue, malaise, fever, sweats. HEENT: Denies sinus pain, ear pain, sore throat, difficulty swallowing, dizziness. RESPIRATORY: Denies dyspnea, cough, wheezing, hemoptysis, sputum. CARDIOVASCULAR: Denies chest pain, palpitations, orthopnea, edema, GASTROINTESTINAL: Denies nausea, vomiting, abdominal pain, diarrhea, constipation, melena. : Denies dysuria, frequency, incontinence, hematuria, urinary retention. MUSCULOSKELETAL: denies weakness, joint pain, or bony pain SKIN: Denies rash, skin lesions, or other NEUROLOGIC: Denies weakness, headache, numbness, change in speech, confusion, seizures, incoordination. PSYCHIATRIC: See HPI 12 point review of systems is negative except for those stated above Patient History Medical History Drug abuse Schizophrenia Social History Smoking Status: Current every day smoker Smoking Status: Current every day smoker tobacco type: cigarettes alcohol intake frequency: other Substance Use Type: does not use, methamphetamine and unknown Exam Narrative Exam Narrative: GENERAL: [42] year old patient appears stated age. Well-developed patient, in mild distress. A bit anxious, slightly disheveled but awake and alert, speaking clearly and walking steady line HEAD: Atraumatic. Normocephalic. EYES: Pupils equal round and reactive. Extraocular motions intact. No scleral icterus. No injection or drainage. ENT: Nose without bleeding, purulent drainage. Throat without erythema, tonsillar hypertrophy or exudate. Airway patent. NECK: Trachea midline. Non tender CARDIOVASCULAR: Regular rate and rhythm without murmurs, gallops, or rubs. RESPIRATORY: Clear to auscultation. Breath sounds equal bilaterally. No wheezes, rales, or rhonchi. GASTROINTESTINAL: Abdomen soft, non-tender, nondistended. EXTREMITIES: No edema or joint tenderness. BACK: Nontender without deformity or crepitance. No flank tenderness. NEURO: AOx3. SKIN: No rash or erythema of visible areas Initial Vital Signs Initial Vital Signs: Vital Signs Temperature 98.5 F 05/12/22 21:32 Pulse Rate 98 H 05/12/22 21:32 Respiratory Rate 14 05/12/22 21:32 Blood Pressure 171/104 H 05/12/22 21:32 Pulse Oximetry 98 05/12/22 21:32 Oxygen Delivery Method 05/12/22 21:32 Course Vital Signs Vital signs: Vital Signs - 8 hr 05/13/22 08:09 Respiratory Rate 16 MDM - Chest Pain MDM Narrative Medical decision making narrative: [42-year-old female smoker with history of methamphetamine use, medical noncompliance and schizophrenia with concerns about being unsafe and people chasing her] Multiple etiologies for patient's symptoms considered including, but not limited to: [Medication noncompliance, drug use versus other] Prior Charts reviewed: Multiple prior notes in the EMR evaluated Patient's symptoms improved over duration of stay with above-stated therapies. Findings and discharge diagnosis discussed with patient/family followed by verbalization of understanding Return precautions discussed with patient/family whom verbalize understanding of diagnosis and plan Discharge Plan Departure Patient Disposition: Home Clinical Impression: Schizophrenia Instructions: DI for Schizophrenia Activity Restrictions/Additional Instructions: *You have been diagnosed with [schizophrenia *What to do: *Please continue to take your regular medications as directed. *Please follow up with your primary care provider in 2-3 days, call for an appointment. Let them know you were seen in the Emergency Department and that we ask that you be seen in follow up. We will electronically transmit a record of today's note if your PCP is in our system *Return to Emergency Department if you should have any new, worsening or concerning symptoms, such as [fever greater than 101 F, shaking chills, worsening pain, persistent vomiting or other bothersome symptoms] Prescriptions: No Action Unobtainable Referrals: Ele Rodgers MD [Primary Care Provider] - Stand Alone Forms: Patient Portal/API
[2022-05-13 08:09] VITALS: RESP 16
== END 2022-05-13 08:09 | disposition home or self-care (01) ==
PROVIDERS: Emergency Provider Emergency Medicine; Family Provider Family Medicine; PCP Family Medicine
DX: F20.9 Schizophrenia, unspecified (principal)
CPT/HCPCS: 99281

== ENCOUNTER 2022-05-13 15:47 | Emergency (ER) | payer OTHER, MEDICAID, SELFPAY ==
[2022-05-13 16:00] VITALS: BP 172/112; PULSE 101; RESP 18; TEMP 36.6; O2SAT 99
--- NOTE | 2022-05-13 16:28 | CM.SWNOTE ---
Social Work Note 05/13/22 Pt is a 42yo female who presented to the ED for anxiety. Pt is a high utilizer of ED services and is well known to the ED from many previous visits, including one this morning. SERGEY was alerted by dispensing operator that pt was asking to speak with SW. SW presented to the room and introduced herself. This SW is aware of pt from previous ED visits, but had not met her in-person. pt is calm, cooperative, and polite with SW. she confirmed her name and date of . Pt is A&Ox4. Pt states she came to the ED because I'm scared. she otherwise denies any acute psychiatric concerns. No SI, HI, or AVH. She confirms she is currently staying at [facility] in [place]. pt states can i get a taxi there? that's the way I'd feel safe. i just want to get back there safely. SW noted pt can also take the bus as it would stop running soon. pt then states can i get a ticket for the bus? SW confirms she can. She also asks for a [facility] bus ticket, which this SW does not have. Discussed with HUNTING SALES ASSOCIATE who identifies it is unclear if medicaid taxi would take pt to [place]. Discussed with MD who will medically clear pt and discharge her to attempt to take the bus as medicaid taxi may not be an option and is time consuming and not a reason for pt to remain in the ED. Plan: pt to be seen by MD for medical clearance adbn then will be discharged. SERGEY gave RN bus ticket for pt. Gallo Muñoz, SWEATBAND MAKER, BRAND ATTENDANT
--- NOTE | 2022-05-14 07:27 | ED_ITS ---
HPI - Anxiety General Chief Complaint: Anxiety Stated Complaint: racing heart Time Seen by Provider: 05/13/22 16:05 Source: patient Mode of arrival: Ambulatory History of Present Illness HPI narrative: 42-year-old female with history of schizophrenia, anxiety and methamphetamine use presents for the 2nd time today. She is well-known to myself and staff. She states that she is feeling somewhat anxious and unsafe to ride the bus ticket back to [place] and is requesting a cab voucher to get her there. She is otherwise well and free of complaint and absent of other concerns. She is not dizzy nor weak or lightheaded. She denies chest pain or shortness of breath Related Data Home Medications Medication Instructions Recorded Confirmed Unobtainable 09/29/20 09/29/20 Allergies Allergy/AdvReac Type Severity Reaction Status Date / Time No Known Drug Allergies Allergy Verified 05/02/22 10:49 Patient History Medical History Drug abuse Schizophrenia Social History Smoking Status: Current every day smoker Smoking Status: Current every day smoker tobacco type: cigarettes alcohol intake frequency: other Substance Use Type: does not use, methamphetamine and unknown Exam Narrative Exam Narrative: GEN: AOx3 and in mild distress EYES: Pupils are equal, round, and reactive to light and accommodation. Extraoccular muscles are intact bilaterally. There is no subconjunctival hemorrhage or exudate. CHEST: Lungs are clear to auscultation bilaterally and free of wheezes, rales, or rhonchi. Heart rate is regular rhythm, there are no murmurs, clicks, rubs, or gallops. There is no chest wall tenderness. ABD: Abdomen is soft and nontender. There is no guarding or rebound. Bowel sounds are normal in all 4 quadrants. There is no mass or organomegaly. EXT: Full painless ROM of all extremities with no loss of sensation or strength. SKIN: Warm, pink, and dry. No erythema or rash Initial Vital Signs Initial Vital Signs: Vital Signs Temperature 98 F 05/13/22 16:00 Pulse Rate 101 H 05/13/22 16:00 Respiratory Rate 18 05/13/22 16:00 Blood Pressure 172/112 H 05/13/22 16:00 Pulse Oximetry 99 05/13/22 16:00 Oxygen Delivery Method 05/13/22 16:00 MDM - Anxiety MDM Narrative Medical decision making narrative: [42-year-old female feeling anxious and unsafe to ride bus, requesting cab voucher] Multiple etiologies for patient's symptoms considered including, but not limited to: [Anxiety, schizophrenia] Prior Charts reviewed: Multiple prior notes available Labs reviewed and interpreted by myself: None indicated Imaging reviewed: None indicated Patient's symptoms improved over duration of stay with above-stated therapies. Findings and discharge diagnosis discussed with patient/family followed by verbalization of understanding Return precautions discussed with patient/family whom verbalize understanding of diagnosis and plan Discharge Plan Departure Patient Disposition: Home Clinical Impression: Schizophrenia Instructions: DI for Anxiety -- Adult, DI for Schizophrenia Activity Restrictions/Additional Instructions: *You have been diagnosed with [schizophrenia] *What to do: *Please continue to take your regular medications as directed. *Please follow up with your primary care provider in 2-3 days, call for an appointment. Let them know you were seen in the Emergency Department and that we ask that you be seen in follow up. We will electronically transmit a record of today's note if your PCP is in our system *If you do not have a primary care provider please contact the [facility] Resource line at [phone]. They will ask some questions about your medical history and help get you set up with a doctor in the community. *Return to Emergency Department if you should have any new, worsening or concerning symptoms, such as [fever greater than 101 F, shaking chills, worsening pain, persistent vomiting or other bothersome symptoms] Prescriptions: No Action Unobtainable Referrals: Ele Rodgers MD [Primary Care Provider] - Stand Alone Forms: Patient Portal/API
== END 2022-05-13 16:37 | disposition home or self-care (01) ==
PROVIDERS: Emergency Provider Emergency Medicine; Family Provider Family Medicine; PCP Family Medicine
DX: F20.9 Schizophrenia, unspecified (principal); R00.2 Palpitations
CPT/HCPCS: 93005; 99281; 99283

== ENCOUNTER 2022-05-14 10:26 | Emergency (ER) | payer OTHER, MEDICAID, SELFPAY ==
[2022-05-14 10:27] VITALS: BMI 29.0
--- NOTE | 2022-05-14 10:36 | PC.NURSE ---
Pt refused to sit in room 3,pt went out to the lobby to wait for a different room.
== END 2022-05-14 11:20 | disposition left against medical advice (07) ==
PROVIDERS: Emergency Provider Emergency Medicine; Family Provider Family Medicine; PCP Family Medicine
CPT/HCPCS: 99281

== ENCOUNTER 2022-05-14 17:12 | Emergency (ER) | payer OTHER, MEDICAID, SELFPAY ==
[2022-05-14 17:42] VITALS: BP 200/101; PULSE 112; RESP 22; TEMP 36.8; O2SAT 99; BMI 26.6
--- NOTE | 2022-05-14 19:32 | CM.SWNOTE ---
Addendum entered by Gallo Muñoz 05/14/22 19:45: Of note; when Pt was told by ED MD that she could not remain in the ED overnight to have somewhere to sleep pt escalated and began screaming someone is trying to kill me. pt continued to yell and scream and was provided with IM medication for her and staff safety. Original Note: Social Work Note 05/14/22 Pt is a 42yo female with hx of schizophrenia and methamphetamine use. She has had numerous ED visits in the past week including twice today and yesterday, when this SW met with her for similar concern. Pt notes she is here because she is scared and my heart was racing. She presents as A&Ox4. she is calm, cooperative, and thanks this SW for her time. Today pt is once again asking for a taxi to [place]. This is not an option and pt is aware she could attempt to take the bus when it begins running again. She states she stayed with a friend last night and does confirm she has other friends with whom she could stay tonight. As this keno writer / runner is at the end of her shift and due to the late hour, note left for dayshift SW to follow-up with PACT and Community clinical veterinarian Jose Alfredo to ascertain current plan of care for this patient, as she is able. Plan: Pt will be discharged to self by MD following medical clearance. Gallo Muñoz, WYATT, ACCESS ASSOC
--- NOTE | 2022-05-14 19:38 | ED.PSYCH ---
HPI - Psych General Chief Complaint: Psychiatric Symptoms Stated Complaint: HEART IS RACING Time Seen by Provider: 05/14/22 19:12 Source: patient Mode of arrival: Ambulatory History of Present Illness HPI Narrative: Patient is a 42-year-old female well known to myself in this department for having schizophrenia and drug abuse. She is been here multiple times in the past several days her various reason she comes to emergency department today stating that she feels like her heart is racing and also that someone is behind her and chasing her and she is scared and she is afraid that the individual was going to hit her head on the floor. He would a very similar things to which she is been here in the emergency department in the past for. She does not provide much more HPI and is very repetitive in her statements. She does appear at her baseline. Related Data Home Medications Medication Instructions Recorded Confirmed Unobtainable 09/29/20 09/29/20 Allergies Allergy/AdvReac Type Severity Reaction Status Date / Time No Known Drug Allergies Allergy Verified 05/02/22 10:49 Review of Systems Review of Systems Narrative: See HPI. Patient History Medical History Drug abuse Schizophrenia Social History Smoking Status: Current every day smoker Smoking Status: Current every day smoker tobacco type: cigarettes alcohol intake frequency: other Substance Use Type: does not use, methamphetamine and unknown Exam Initial Vital Signs Initial Vital Signs: Vital Signs Temperature 98.2 F 05/14/22 17:42 Pulse Rate 112 H 05/14/22 17:42 Respiratory Rate 22 05/14/22 17:42 Blood Pressure 200/101 H 05/14/22 17:42 Pulse Oximetry 99 05/14/22 17:42 Oxygen Delivery Method 05/14/22 17:42 Const Other: Disheveled Resp Effort & Inspection: tachypneic Cardio Rate: tachycardic Psych Other: Is repetitive, is obviously responding to internal stimuli. Course Orders Ordered: Discontinued Medications Haloperidol (Haloperidol 5 Mg/Ml Vial) 5 mg IM NOW ONE Stop: 05/14/22 19:39 Last Admin: 05/14/22 19:45 Dose: 5 mg Documented By: DARRELL Vital Signs Vital signs: Vital Signs - 8 hr 02/21/23 17:42 Temperature 98.2 F Pulse Rate 112 H Respiratory Rate 22 Blood Pressure 200/101 H Pulse Oximetry 99 Oxygen Delivery Method Room Air MDM - Psych MDM Narrative Medical decision making narrative: Claire is presenting at her baseline. She is seen by social work. Initially the plan was to discharge her however she asked if she could stay here in the emergency department to sleep. When I told her that she could not she needed to find some place else she became agitated. She then started saying that someone was chasing her and that she was not safe ?outside in the cold?. She started walking around the department. Was very minimally directable. She was asking for medications which is baseline for her. She was given a shot of Haldol. This calmed her down. She then laid down and went to sleep. Claire is a very difficult case. The PACT team is involved with her. Our community business services assistant is involved. At any given day/time an argument could be made that Claire the has grave disability and should be involuntarily admitted however this has been done multiple times in the past and she is admitted somewhere for couple days and then is discharged back to the street. It was reported that the last time that she had a CA for an extended period of time it was reversed and she was discharged back into the community. She most likely continues to use illicit substances. I am unsure if she meets with the PACT team to receive her daily medications. She does seem to respond well to Haldol when I give it to her here in the emergency department. I do have some suspicion that Claire is somewhat using the system/emergency department to have a place to sleep at night especially the fact that it is cold outside. She was calm this evening until I told her that she could not stay here in the emergency department and this is when she escalated and started to become undetectable and yelling and screaming. Social work has been involved with her this evening as well. Our department is at a loss for what we can do for her long term care administrator. There are multiple social resources involved in her care. We will continue to be happy to see her when she comes to the emergency department which lately has been more and more frequent. Discharge Plan Departure Patient Disposition: Home Clinical Impression: Chronic schizophrenia Prescriptions: No Action Unobtainable Referrals: Ele Rodgers MD [Primary Care Provider] - Stand Alone Forms: Patient Portal/API
[2022-05-14] MEDS: HALOPERIDOL 5 MG/ML VIAL IM (19:45)
== END 2022-05-15 07:00 | disposition home or self-care (01) ==
PROVIDERS: Emergency Provider Emergency Medicine; Family Provider Family Medicine; PCP Family Medicine
DX: F20.9 Schizophrenia, unspecified (principal)
CPT/HCPCS: 96372; 99283; J1630

== ENCOUNTER 2022-05-17 16:13 | Emergency (ER) | payer OTHER, MEDICAID, SELFPAY ==
[2022-05-17 16:25] VITALS: BP 134/90; PULSE 90; RESP 15; TEMP 37.4; O2SAT 99
--- NOTE | 2022-05-17 16:57 | ED.PSYCH ---
HPI - Psych <Cb Weber MD - Last Filed: 05/21/22 08:02> General Chief Complaint: Psychiatric Symptoms Stated Complaint: Fells unsafe Time Seen by Provider: 05/17/22 16:42 Source: EMS Mode of arrival: EMS History of Present Illness HPI Narrative: Patient brought in by ambulance. Patient has concerns of feeling unsafe. Patient just here a couple days ago for the same complaint. Patient is well-known to the emergency department. Has had 91 visits in the past 12 months. Patient is followed by the pact team, however patient has not seen them in 1 and half weeks as they have been trying to track her down for her medications. Patient has a correction in [place] to stay at but she chooses to stay here in [place]. Patient does have some patient resources but has been noncompliant. Patient denies any SI or HI. She has history of chronic schizophrenia. She is nonspecific at this time but feeling unsafe. She does state that it is cold outside and she would like to stay indoors tonight. I did inform her that this is not a correction. [facility] social work has reviewed patient's recent many visits. At this time she would like to have Haldol has this has helped her for anxiety and her schizophrenia. She did receive this 3 days ago during her course of stay. Today's visit is very similar to that visit. Please see notes from MDM below from that visit. MDM Narrative Medical decision making narrative: Claire is presenting at her baseline. She is seen by social work. Initially the plan was to discharge her however she asked if she could stay here in the emergency department to sleep. When I told her that she could not she needed to find some place else she became agitated. She then started saying that someone was chasing her and that she was not safe ?outside in the cold?. She started walking around the department. Was very minimally directable. She was asking for medications which is baseline for her. She was given a shot of Haldol. This calmed her down. She then laid down and went to sleep. Claire is a very difficult case. The PACT team is involved with her. Our community instructor product inspection is involved. At any given day/time an argument could be made that Claire del angel has grave disability and should be involuntarily admitted however this has been done multiple times in the past and she is admitted somewhere for couple days and then is discharged back to the street. It was reported that the last time that she had a CA for an extended period of time it was reversed and she was discharged back into the community. She most likely continues to use illicit substances. I am unsure if she meets with the PACT team to receive her daily medications. She does seem to respond well to Haldol when I give it to her here in the emergency department. I do have some suspicion that Claire is somewhat using the system/emergency department to have a place to sleep at night especially the fact that it is cold outside. She was calm this evening until I told her that she could not stay here in the emergency department and this is when she escalated and started to become undetectable and yelling and screaming. Social work has been involved with her this evening as well. Our department is at a loss for what we can do for her long term care administrator. There are multiple social resources involved in her care. We will continue to be happy to see her when she comes to the emergency department which lately has been more and more frequent. Related Data Home Medications Medication Instructions Recorded Confirmed Unobtainable 09/29/20 09/29/20 Allergies Allergy/AdvReac Type Severity Reaction Status Date / Time No Known Drug Allergies Allergy Verified 05/17/22 16:14 Review of Systems <Cb Weber MD - Last Filed: 05/21/22 08:02> Review of Systems Narrative: GENERAL: negative chills, fatigue, malaise, fever, sweats. HEENT: negative sinus pain, ear pain, sore throat RESPIRATORY: negative dyspnea, cough CARDIOVASCULAR: negative chest pain, palpitations GASTROINTESTINAL: negative nausea, vomiting, abdominal pain : negative dysuria, frequency, hematuria MUSCULOSKELETAL: negative muscle or bony pain SKIN: negative rash, skin lesions NEUROLOGIC: negative weakness, numbness PSYCH: Positive for anxiety negative SI no HI, positive for delusions ROS Unobtainable: All systems reviewed & are unremarkable except as noted in HPI and below Patient History <Cb Weber MD - Last Filed: 05/21/22 08:02> Medical History Drug abuse Schizophrenia Social History Smoking Status: Current every day smoker Smoking Status: Current every day smoker tobacco type: cigarettes alcohol intake frequency: other Substance Use Type: does not use, methamphetamine and unknown Exam <Cb Weber MD - Last Filed: 05/21/22 08:02> Narrative Exam Narrative: GENERAL: in no distress, not toxic not dyspneic HEAD: Normocephalic. EYES: Pupils equal round ENT: Mucous membranes moist. NECK: Trachea midline. CARDIOVASCULAR: Regular rate and rhythm without murmurs RESPIRATORY: Clear to auscultation. Breath sounds equal bilaterally. No wheezes, rales, or rhonchi. GASTROINTESTINAL: Abdomen soft, non-tender EXTREMITIES: No gross deformities. BACK: No flank tenderness. NEURO: AOx4. SKIN: Warm and dry PSYCH: Slightly anxious, is cooperative, baseline for patient's paranoia. Denies SI or HI. Not combative. Initial Vital Signs Initial Vital Signs: Vital Signs Temperature 99.3 F 05/17/22 16:25 Pulse Rate 90 05/17/22 16:25 Respiratory Rate 15 05/17/22 16:25 Blood Pressure 134/90 05/17/22 16:25 Pulse Oximetry 99 05/17/22 16:25 Oxygen Delivery Method 05/17/22 16:25 <Isaiah Capps DO - Last Filed: 05/18/22 06:30> Initial Vital Signs Initial Vital Signs: Vital Signs Temperature 99.3 F 05/17/22 16:25 Pulse Rate 90 05/17/22 16:25 Respiratory Rate 15 05/17/22 16:25 Blood Pressure 134/90 05/17/22 16:25 Pulse Oximetry 99 05/17/22 16:25 Oxygen Delivery Method 05/17/22 16:25 Course <Cb Weber MD - Last Filed: 05/21/22 08:02> Orders Ordered: Discontinued Medications Haloperidol (Haloperidol 5 Mg/Ml Vial) 5 mg IM NOW ONE Stop: 05/17/22 16:54 Last Admin: 05/17/22 17:27 Dose: 5 mg Documented By: [facility] Vital Signs Vital signs: Vital Signs - 8 hr 05/17/22 16:25 Temperature 99.3 F Pulse Rate 90 Respiratory Rate 15 Blood Pressure 134/90 Pulse Oximetry 99 Oxygen Delivery Method Room Air <Isaiah Capps DO - Last Filed: 05/18/22 06:30> Orders Ordered: Discontinued Medications Haloperidol (Haloperidol 5 Mg/Ml Vial) 5 mg IM NOW ONE Stop: 05/17/22 16:54 Last Admin: 05/17/22 17:27 Dose: 5 mg Documented By: [facility] Vital Signs Vital signs: Vital Signs - 8 hr 05/17/22 16:25 Temperature 99.3 F Pulse Rate 90 Respiratory Rate 15 Blood Pressure 134/90 Pulse Oximetry 99 Oxygen Delivery Method Room Air MDM - Psych <Cb Weber MD - Last Filed: 05/21/22 08:02> Lab Data Labs: Lab Results 05/17/22 Range/Units 18:01 U Opiates 300ng/mL cut Negative (Negative) Ur Oxycodone Screen Negative (Negative) Urine Methadone Screen Negative (Negative) Ur Barbiturates Screen Negative (Negative) U Tricyclic Antidepress Negative (Negative) Ur Phencyclidine Scrn Negative (Negative) Ur Amphetamines Screen Positive H (Negative) U Methamphetamines Scrn Positive H (Negative) Ur MDMA Scrn (Ecstasy) Negative (Negative) U Benzodiazepines Scrn Negative (Negative) Urine Cocaine Screen Negative (Negative) U Marijuana (THC) Screen Negative (Negative) [facility] Narrative Medical decision making narrative: Patient brought in by ambulance. Patient has concerns of feeling unsafe. Patient just here a couple days ago for the same complaint. Patient is well-known to the emergency department. Has had 91 visits in the past 12 months. Patient is followed by the pact team, however patient has not seen them in 1 and half weeks as they have been trying to track her down for her medications. Patient has a correction in [place] to stay at but she chooses to stay here in [place]. Patient does have some patient resources but has been noncompliant. Patient denies any SI or HI. She has history of chronic schizophrenia. She is nonspecific at this time but feeling unsafe. She does state that it is cold outside and she would like to stay indoors tonight. I did inform her that this is not a correction. Roselyn, social work has reviewed patient's recent many visits. At this time she would like to have Haldol has this has helped her for anxiety and her schizophrenia. She did receive this 3 days ago during her course of stay. Today's visit is very similar to that visit. Please see notes from [facility] below from that visit. [facility] Narrative Medical decision making narrative: Claire is presenting at her baseline. She is seen by social work. Initially the plan was to discharge her however she asked if she could stay here in the emergency department to sleep. When I told her that she could not she needed to find some place else she became agitated. She then started saying that someone was chasing her and that she was not safe ?outside in the cold?. She started walking around the department. Was very minimally directable. She was asking for medications which is baseline for her. She was given a shot of Haldol. This calmed her down. She then laid down and went to sleep. Claire is a very difficult case. The PACT team is involved with her. Our community instructor product inspection is involved. At any given day/time an argument could be made that Claire del angel has grave disability and should be involuntarily admitted however this has been done multiple times in the past and she is admitted somewhere for couple days and then is discharged back to the street. It was reported that the last time that she had a CA for an extended period of time it was reversed and she was discharged back into the community. She most likely continues to use illicit substances. I am unsure if she meets with the PACT team to receive her daily medications. She does seem to respond well to Haldol when I give it to her here in the emergency department. I do have some suspicion that Claire is somewhat using the system/emergency department to have a place to sleep at night especially the fact that it is cold outside. She was calm this evening until I told her that she could not stay here in the emergency department and this is when she escalated and started to become undetectable and yelling and screaming. Social work has been involved with her this evening as well. Our department is at a loss for what we can do for her jail. There are multiple social resources involved in her care. We will continue to be happy to see her when she comes to the emergency department which lately has been more and more frequent. After history and exam drug screen and Haldol ordered. At this time, patient appears to be at her baseline chronic schizophrenia with chronic delusions. She is nonspecific with feeling unsafe. At this time does not necessitate social work consult. [facility]: Delusion/schizophrenia Complicating co-morbidities: Data collected from: Patient and previous records Medical records reviewed: Last ER visit 3 days ago Differential considered: Includes but not limited to anxiety, chronic schizophrenia, substances abuse Exam documented above, pertinent findings include: Chronic delusions Lab Test results independently reviewed as above. Pertinent findings: Consultations: Treatments: Re-evaluations: 6:[address] Capps re-evaluate after Haldol for patient's comfort and anxiety. Drug screen is pending. Likely discharge home. Discussion: Diagnosis: <Isaiah Looneyignacio, DO - Last Filed: 05/18/22 06:30> Lab Data Labs: Lab Results 05/17/22 Range/Units 18:01 U Opiates 300ng/mL cut Negative (Negative) Ur Oxycodone Screen Negative (Negative) Urine Methadone Screen Negative (Negative) Ur Barbiturates Screen Negative (Negative) U Tricyclic Antidepress Negative (Negative) Ur Phencyclidine Scrn Negative (Negative) Ur Amphetamines Screen Positive H (Negative) U Methamphetamines Scrn Positive H (Negative) Ur MDMA Scrn (Ecstasy) Negative (Negative) U Benzodiazepines Scrn Negative (Negative) Urine Cocaine Screen Negative (Negative) U Marijuana (THC) Screen Negative (Negative) [facility] Narrative Medical decision making narrative: Patient brought in by ambulance. Patient has concerns of feeling unsafe. Patient just here a couple days ago for the same complaint. Patient is well-known to the emergency department. Has had 91 visits in the past 12 months. Patient is followed by the pact team, however patient has not seen them in 1 and half weeks as they have been trying to track her down for her medications. Patient has a correction in [place] to stay at but she chooses to stay here in [place]. Patient does have some patient resources but has been noncompliant. Patient denies any SI or HI. She has history of chronic schizophrenia. She is nonspecific at this time but feeling unsafe. She does state that it is cold outside and she would like to stay indoors tonight. I did inform her that this is not a correction. Roselyn, social work has reviewed patient's recent many visits. At this time she would like to have Haldol has this has helped her for anxiety and her schizophrenia. She did receive this 3 days ago during her course of stay. Today's visit is very similar to that visit. Please see notes from [facility] below from that visit. [facility] Narrative Medical decision making narrative: Claire is presenting at her baseline. She is seen by social work. Initially the plan was to discharge her however she asked if she could stay here in the emergency department to sleep. When I told her that she could not she needed to find some place else she became agitated. She then started saying that someone was chasing her and that she was not safe ?outside in the cold?. She started walking around the department. Was very minimally directable. She was asking for medications which is baseline for her. She was given a shot of Haldol. This calmed her down. She then laid down and went to sleep. Claire is a very difficult case. The PACT team is involved with her. Our community instructor product inspection is involved. At any given day/time an argument could be made that Claire del angel has grave disability and should be involuntarily admitted however this has been done multiple times in the past and she is admitted somewhere for couple days and then is discharged back to the street. It was reported that the last time that she had a CA for an extended period of time it was reversed and she was discharged back into the community. She most likely continues to use illicit substances. I am unsure if she meets with the PACT team to receive her daily medications. She does seem to respond well to Haldol when I give it to her here in the emergency department. I do have some suspicion that Claire is somewhat using the system/emergency department to have a place to sleep at night especially the fact that it is cold outside. She was calm this evening until I told her that she could not stay here in the emergency department and this is when she escalated and started to become undetectable and yelling and screaming. Social work has been involved with her this evening as well. Our department is at a loss for what we can do for her jail. There are multiple social resources involved in her care. We will continue to be happy to see her when she comes to the emergency department which lately has been more and more frequent. After history and exam drug screen and Haldol ordered. At this time, patient appears to be at her baseline chronic schizophrenia with chronic delusions. She is nonspecific with feeling unsafe. At this time does not necessitate social work consult. [facility]: Delusion/schizophrenia Complicating co-morbidities: Data collected from: Patient and previous records Medical records reviewed: Last ER visit 3 days ago Differential considered: Includes but not limited to anxiety, chronic schizophrenia, substances abuse Exam documented above, pertinent findings include: Chronic delusions Lab Test results independently reviewed as above. Pertinent findings: Consultations: Treatments: Re-evaluations: 6:00 p.m.. Sign out Génesis re-evaluate after Haldol for patient's comfort and anxiety. Drug screen is pending. Likely discharge home. Discussion: Diagnosis: Dr Capps: Received turned over. Review patient's urinalysis which is positive for methamphetamine which is consistent with her prior encounters with her. Patient was given Haldol and has been sleeping since the administration of that medication. Per the report from the initial physician she appears to be at her baseline mental status. I once again have a very high suspicion that her presentation here to the emergency department today is because it is cold outside and she needs a place to sleep. Do not feel that today she is any more disabled than any other encounters and I have had with her. Once again have very little to offer her except for a warm place to sleep. My last evaluation of her which was just recently she was calm in the room until I told her that she could not stay here in the emergency department when she started to scream out and say things like she was scared and that people were after her. The issue with Claire's that at any point time can not definitively say that she has capacity to make decisions although I feel that my last 2 interactions with her have not been worse than priors and potentially she has been more coherent than prior interactions. I believe that Claire is building a pattern of knowing that if she comes in the emergency department and says certain statements and acts out that she will be allowed to stay and have a place to sleep and food to eat. I believe this will become more evident if she continues to present these circumstances. Patient stayed in the emergency department overnight and discharged. Discharge Plan Departure Patient Disposition: Home Clinical Impression: Chronic schizophrenia Prescriptions: No Action Unobtainable Referrals: Ele Rodgers MD [Primary Care Provider] - Stand Alone Forms: Patient Portal/API
[2022-05-17] MEDS: HALOPERIDOL 5 MG/ML VIAL IM (17:27)
[2022-05-17 18:20] LABS: Ur Creatinine Normal (Normal); Ur Specific Gravity Normal (Normal); Urine pH Normal (Normal)
[2022-05-17 18:21] LABS: UR Morphine/Opiate cutoff 300 Negative (Negative); Urine Amphetamines Positive (Negative); Urine Barbiturates Negative (Negative); Urine Benzodiazepines Negative (Negative); Urine Cocaine Negative (Negative); Urine MDMA Negative (Negative); Urine Methadone Negative (Negative); Urine Methamphetamines Positive (Negative); Urine Oxycodone Negative (Negative); Urine Phencyclidine Negative (Negative); Urine Tetrahydrocannabinol Negative (Negative); Urine Tricyclic Antidepressant Negative (Negative)
--- NOTE | 2022-05-17 20:15 | CM.SWNOTE ---
PHTHALIC ACID PURIFIER Note Patient is 42 y/o female who presents to ED via EMS due to concern for feeling scared. This is patient's 6th ED encounter within a week, patient has hx of 91 ED encounters in the last 12 months. Patient has significant hx of Methamphetamine use and Schizophrenia. Patient is positive for Methamphetamine and Amphetamines at this ED encounter. Patient requests Haldol and ED provider provides medication for patient. Patient presents as A/Ox4, calm and cooperative at this time. This PHTHALIC ACID PURIFIER, ED director, AFD Community Dozer Operator and AFD team are attempting to collaborate with DCRs, [facility] PACT team and [facility] to identify a better solution for patient care. Meeting is TBD at this time. In recent months patient has been residing at [facility] in [place] and community back to [place] during the day, often requesting rides back to [place] or requesting to stay in ED over night. Patient is currently asleep and PHTHALIC ACID PURIFIER is not able to meet with patient at this time, PHTHALIC ACID PURIFIER reviews patient with ED provider. Plan: ED provider to d/c patient upon medical clearance and patient to d/c to community. LU RogersSW
--- NOTE | 2022-05-17 20:26 | PC.NURSE ---
Pt sleeping. Resps even, unlabored. Pt in no apparent distress.
--- NOTE | 2022-05-18 06:12 | PC.NURSE ---
Pt has slept all night. NAD.
== END 2022-05-18 06:53 | disposition home or self-care (01) ==
PROVIDERS: Emergency Medicine; Emergency Provider Emergency Medicine; Family Provider Family Medicine; PCP Family Medicine
DX: F20.9 Schizophrenia, unspecified (principal)
CPT/HCPCS: 80305; 96372; 99283; J1630

== ENCOUNTER 2022-05-20 15:29 | Emergency (ER) | payer OTHER, MEDICAID, SELFPAY ==
--- NOTE | 2022-05-20 15:57 | PC.NURSE ---
Demetrius Barr called ED says he helps with Claire. Took his phone number and said I would pass along the message due to full trauma happening in that moment.
--- NOTE | 2022-05-20 16:10 | PC.NURSE ---
No answer from triage
== END 2022-05-20 16:00 | disposition left against medical advice (07) ==
PROVIDERS: Emergency Provider Emergency Medicine; Family Provider Family Medicine; PCP Family Medicine

== ENCOUNTER 2022-05-21 11:15 | Emergency (ER) | payer OTHER, MEDICAID, SELFPAY ==
[2022-05-21 11:19] VITALS: BP 175/101; PULSE 94; RESP 16; TEMP 37.1; O2SAT 100
--- NOTE | 2022-05-21 11:43 | PC.NURSE ---
Pt. expressed her want to leave and left around 1143.
== END 2022-05-21 11:43 | disposition left against medical advice (07) ==
PROVIDERS: Emergency Provider Emergency Medicine; Family Provider Family Medicine; PCP Family Medicine
CPT/HCPCS: 99281

== ENCOUNTER 2022-05-24 15:00 | Emergency (ER) | payer OTHER, MEDICAID, SELFPAY ==
[2022-05-24 15:07] VITALS: BP 157/84; PULSE 112; RESP 16; TEMP 36.4; O2SAT 99; BMI 27.3
== END 2022-05-24 17:47 | disposition left against medical advice (07) ==
PROVIDERS: Emergency Provider Emergency Medicine; Family Provider Family Medicine; PCP Registered Nurse Diabetes Educator
CPT/HCPCS: 99281

== ENCOUNTER 2022-05-25 17:47 | Emergency (ER) | payer OTHER, MEDICAID, SELFPAY ==
[2022-05-25] MEDS: HALOPERIDOL 5 MG/ML VIAL IM (17:55)
--- NOTE | 2022-05-25 17:55 | ED.PSYCH ---
HPI - Psych General Stated Complaint: screaming/paranoid Time Seen by Provider: 05/25/22 17:47 History of Present Illness HPI Narrative: Patient 42-year-old female history of methamphetamine abuse chronic paranoia presenting today with paranoia. She is well known to this facility and myself. She called EMS for paranoia feeling of being chased. She apparently was calm for EMS however since she walked in the door in the emergency department started yelling screaming asking for. She is requesting Haldol. She was actually here yesterday but left before being seen. No suicidal or homicidal thoughts. Feels like people are chasing her. She is been hospitalized numerous times. There are concerns that she uses the emergency department for non emergent uses. She does have outpatient resources our community face and fill packer is involved sometimes difficult to find her to give her her medicine. Related Data Home Medications Medication Instructions Recorded Confirmed olanzapine 10 mg tablet 10 mg PO QAM 05/21/22 05/21/22 olanzapine 20 mg tablet 20 mg PO BEDTIME 05/21/22 05/21/22 Previous Rx's Medication Instructions Recorded hydroxyzine HCl 25 mg tablet 25 mg PO QID PRN anxiety #30 tabs 05/21/22 Allergies Allergy/AdvReac Type Severity Reaction Status Date / Time No Known Drug Allergies Allergy Verified 05/21/22 15:13 Review of Systems Review of Systems ROS Unobtainable: All systems reviewed & are unremarkable except as noted in HPI and below Patient History Medical History Drug abuse Methamphetamine abuse Schizophrenia Social History Smoking Status: Current every day smoker Smoking Status: Current every day smoker tobacco type: cigarettes alcohol intake frequency: other Substance Use Type: former substance user, methamphetamine and unknown Exam Initial Vital Signs Initial Vital Signs: GENERAL: Non disheveled yelling paranoid CARDIOVASCULAR: peripheral pulses in tact, cap refill <2 sec RESPIRATORY: No respiratory distress, speaks in full sentences without difficulty [ABDOMEN: Soft, nontender, no guarding or rebound] EXTREMITIES: Normal range of motion, no clubbing or edema. Neurovascularly intact NEUROLOGICAL: Cranial nerves II through XII grossly intact. Normal gait and speech. SKIN: Warm, dry, no petechiae, no rashes or lesions. Course Orders Ordered: Discontinued Medications Haloperidol (Haloperidol 5 Mg/Ml Vial) 5 mg IM NOW ONE Stop: 05/25/22 17:48 Last Admin: 05/25/22 18:02 Dose: 5 mg MDM - Psych MDM Narrative Medical decision making narrative: Patient paranoid schizophrenic chronic methamphetamine use chronic paranoia presenting today with worsening paranoia. According the EMS she was not this agitated until she walked into the emergency department. Patient is given 5 mg of Haldol IM. Constantly yelling requesting attention. Multiple outpatient resources are being utilized. Frequently using emergency department for nonemergent services. Patient left voluntarily she is not gravely disabled she does not meet involuntary criteria. Discharge Plan Departure Patient Disposition: Home Clinical Impression: Chronic schizophrenia Activity Restrictions/Additional Instructions: *You have been diagnosed with chronic schizophrenia *Continue to take medications as directed *Return to ER if you should have any new, worsening or concerning symptoms Prescriptions: No Action hydroxyzine HCl 25 mg tablet 25 mg PO QID PRN (Reason: anxiety) Qty: 30 0RF olanzapine 10 mg tablet 10 mg PO QAM olanzapine 20 mg tablet 20 mg PO BEDTIME Referrals: Francisco Lobo ARNP [Primary Care Provider] - Stand Alone Forms: Patient Portal/API
--- NOTE | 2022-05-25 18:17 | CM.SWNOTE ---
CORPORATE CONTROLLER Note Patient presents to ED via EMS due to paranoia, scared she is being chased. Per EMS patient was calm and cooperative. Upon arrival to ED patient walks to Nurse station by ED CORPORATE CONTROLLER desk and refuses to go to room. When ED provider Dr. Watkins offers patient medication patient is calmer and redirectable to room 13. After administration of IM Haldol patient continued to yell and ask for EMS to call the police and asking for ED staff, this CORPORATE CONTROLLER and anyone near by to come to her aid. Patient is approached by ED provider, charge nurse and RN and given the option to leave or stay if she will be calm and quiet in room. Patient initially chooses to leave and walks toward the exit but proceeds to return to room. At this time patient is sleeping in room. Patient has significant hx of Methamphetamine use and Schitzophrenia, patient is impacted by paranoia. It is the opinion of this CORPORATE CONTROLLER given her presentation in response to ED environment and offering of medication that patient is coherent and aware. CORPORATE CONTROLLER calls Community Barrel Assembler Helper and leaves informing Jose Alfredo of this ED presentation as patient has 98 ED encounters within the last 12 months. At this time & Community Barrel Assembler Helper are trying to coordinate with [facility] PACT team and [facility] DCRs as patient's outpatient plan is not effective for patient's level of care needs. Per ED provider, patient does not meet CA criteria at this time. Patient likely to d/c upon medical clearance. LU RogersSW
--- NOTE | 2022-05-25 18:24 | PC.NURSE ---
pt is now laying down. blanket pulled up to chin, chest rise and fall visible. RR 17/minute.
--- NOTE | 2022-05-25 22:44 | PC.NURSE ---
pt visible from nursing desk. tossing and turning in sleep over last 2 hours. currently covered with blankets, visible rise and fall of chest. RR 18/min
[2022-05-25 23:01] VITALS: PULSE 112; RESP 16; O2SAT 97
--- NOTE | 2022-05-25 23:02 | PC.NURSE ---
pt woke for vs, while obtaining vs pt ripped bp cuff off and said I'm going to the bathroom pt asking if she could stay all night
[2022-05-25 23:05] VITALS: BP 155/95; PULSE 93; TEMP 36.7; O2SAT 100
== END 2022-05-25 23:08 | disposition home or self-care (01) ==
PROVIDERS: Emergency Provider Emergency Medicine; Family Provider Family Medicine; PCP Registered Nurse Diabetes Educator
DX: F20.9 Schizophrenia, unspecified (principal)
CPT/HCPCS: 96372; 99283; J1630

== ENCOUNTER 2022-05-26 10:11 | Emergency (ER) | payer OTHER, MEDICAID, SELFPAY ==
[2022-05-26 10:20] VITALS: PULSE 110; RESP 20; TEMP 37.1; O2SAT 98
--- NOTE | 2022-05-26 16:33 | ED.PSYCH ---
HPI - Psych General Chief Complaint: Psychiatric Symptoms Stated Complaint: Paranoia Time Seen by Provider: 05/26/22 11:25 Source: patient Mode of arrival: EMS History of Present Illness HPI Narrative: Patient 42-year-old female history of methamphetamine abuse, chronic schizophrenia frequent visits to the emergency department. She was seen evaluated by myself last night. She received a dose of Haldol and then was discharged. She arrives again today by EMS this time she is much calmer. No yelling and screaming. She waited in the waiting room for about 6 hours. She was seen evaluated by her outpatient PACT team who gave her Zyprexa. She requested to still be seen. She is not gravely disabled thoughts of suicide or homicide. She was seen evaluated by our social scientist. Claire is in the ED frequently with behavior and paranoia. There is definitely some degree of attention seeking which was clearly evident last night. Today she is and cooperative. I do not believe PACT team can always find her so she does not always stay medicated. Multiple outpatient resources are being used. She has been deemed gravely disabled numerous times and put in care facilities for extensive periods of time. Unfortunately our emergency department has exhausted all sources for her. Outpatient community medic is involved outpatient mental health all of our social workers have been involved. She supposedly is able to have a place to sleep and [place] but she reports that she is been kicked off the bus and not allowed to get on. We have been unable to confirm if this is true or not. Related Data Home Medications Medication Instructions Recorded Confirmed olanzapine 10 mg tablet 10 mg PO QAM 05/21/22 05/21/22 olanzapine 20 mg tablet 20 mg PO BEDTIME 05/21/22 05/21/22 Previous Rx's Medication Instructions Recorded hydroxyzine HCl 25 mg tablet 25 mg PO QID PRN anxiety #30 tabs 05/21/22 Allergies Allergy/AdvReac Type Severity Reaction Status Date / Time No Known Drug Allergies Allergy Verified 05/26/22 10:24 Patient History Medical History Drug abuse Methamphetamine abuse Schizophrenia Social History Smoking Status: Current every day smoker Smoking Status: Current every day smoker tobacco type: cigarettes alcohol intake frequency: other Substance Use Type: former substance user, methamphetamine and unknown Exam Initial Vital Signs Initial Vital Signs: Vital Signs Temperature 98.8 F 05/26/22 10:20 Pulse Rate 110 H 05/26/22 10:20 Respiratory Rate 20 05/26/22 10:20 Pulse Oximetry 98 05/26/22 10:20 Oxygen Delivery Method Room Air 05/26/22 10:20 GENERAL: Disheveled cooperative CARDIOVASCULAR: peripheral pulses in tact, cap refill <2 sec RESPIRATORY: No respiratory distress, speaks in full sentences without difficulty EXTREMITIES: Normal range of motion, no clubbing or edema. Neurovascularly intact NEUROLOGICAL: Cranial nerves II through XII grossly intact. Normal gait and speech. SKIN: Warm, dry, no petechiae, no rashes or lesions. Course Vital Signs Vital signs: Vital Signs - 8 hr 05/26/22 10:20 Temperature 98.8 F Pulse Rate 110 H Respiratory Rate 20 Pulse Oximetry 98 Oxygen Delivery Method Room Air MDM - Psych MDM Narrative Medical decision making narrative: Claire is in the ED frequently with behavior and paranoia. There is definitely some degree of attention seeking which was clearly evident last night. Today she is and cooperative. I do not believe PACT team can always find her so she does not always stay medicated. Multiple outpatient resources are being used. She has been deemed gravely disabled numerous times and put in care facilities for extensive periods of time. Unfortunately our emergency department has exhausted all sources for her. Outpatient community medic is involved outpatient mental health all of our social workers have been involved. She supposedly is able to have a place to sleep and [place] but she reports that she is been kicked off the bus and not allowed to get on. We have been unable to confirm if this is true or not. At this time our department has nothing further to offer her. She does not meet involuntary criteria this time. It is highly likely that she will return later today. Discharge Plan Departure Patient Disposition: Home Clinical Impression: Chronic schizophrenia Instructions: DI for Schizoaffective Disorder Activity Restrictions/Additional Instructions: Juanito please get on the bus and go to [place] so that you have a place to sleep tonight Please see the pact team and take your medications Follow-up as needed Prescriptions: No Action hydroxyzine HCl 25 mg tablet 25 mg PO QID PRN (Reason: anxiety) Qty: 30 0RF olanzapine 10 mg tablet 10 mg PO QAM olanzapine 20 mg tablet 20 mg PO BEDTIME Referrals: Francisco Lobo ARNP [Primary Care Provider] - Stand Alone Forms: Patient Portal/API
--- NOTE | 2022-05-26 16:41 | CM.SWNOTE ---
Social Work Note 05/26/22 16:00 Pt arrived to the ED today complaining of paranoia. Pt was triaged and walked to room 13 but declined to remain in that room. as no other room was available pt remained in the lobby for roughly five hours. SW spoke with pt in the lobby briefly and pt was focused on speaking with PACT team primary care physician in the parking lot. She largely did not report why she was in the ED today. She did note that she paid for a number of days at a local hotel. SW spoke with PACT team primary care physician Demetrius Jin [phone]. He has spoken with pt and has given her her OP dose of Olanzapine 30mg that the team holds for her. He notes she has largely not had her meds in 2-3 weeks as staff struggle to track her down. He indicates that he does have an XENIA now for hospital staff so the PACT team can consult with staff routinely moving forward. He spoke with staff at [facility] in [place] and pt is welcome to stay there, contrary to her having told Ed that she was banned. Ed indicates that pt has been at [facility] a few times in the past week and thus has been finding her way up to [place]. He indicates that he spoke with his warehouse and receiving supervisor and there is nothing more they can do for Juanito today. SW spoke with pt again. She has no SI, HI, or AVH. She presents at her baseline and is calm and largely cooperative she does state its not fair that she can't stay here at the hospital. medicaid taxi is not an option and it is uncealr to this clinical writer if pt is in fact not allowed on the bus. pt given a bus ticket and recommended she attempt to get to [facility] custodial in [place]. She has recently been at [facility] and this, and her frequent visits to the ED, are evidence she is well able to get her needs met. Plan: Pt discharged by ED . Gallo Muñoz, MANAGER STRATEGIC ALLIANCES, MICROPHONE OPERATOR
== END 2022-05-26 16:53 | disposition home or self-care (01) ==
PROVIDERS: Emergency Provider Emergency Medicine; Family Provider Family Medicine; PCP Registered Nurse Diabetes Educator
DX: F20.9 Schizophrenia, unspecified (principal)
CPT/HCPCS: 99283

== ENCOUNTER 2022-05-27 09:40 | Emergency (ER) | payer OTHER, MEDICAID, SELFPAY ==
[2022-05-27 10:00] VITALS: BP 161/87; PULSE 101; RESP 15; TEMP 36.6; O2SAT 96; BMI 26.6
== END 2022-05-27 12:11 | disposition left against medical advice (07) ==
PROVIDERS: Emergency Provider Emergency Medicine; Family Provider Family Medicine; PCP Registered Nurse Diabetes Educator
CPT/HCPCS: 99281

== ENCOUNTER 2022-05-27 13:00 | Emergency (ER) | payer OTHER, MEDICAID, SELFPAY ==
[2022-05-27 13:44] VITALS: BP 163/99; PULSE 99; RESP 16; TEMP 36.7; O2SAT 100; BMI 26.6
--- NOTE | 2022-05-27 14:29 | PC.NURSE ---
Jose Alfredo with [facility] in lobby speaking with Patient. At patient's request.
--- NOTE | 2022-05-27 15:21 | CM.SWNOTE ---
Social Work Note 05/27/22 Pt is a 42yo female who is seen in the ED today for feeling ?scared.? She has been seen in the ED twice today. Pt is well known to the ED from many previous visits for similar concerns. Pt was seen by this technical document writer yesterday 05/26. At that time SW spoke with PACT provider who was able to see pt yesterday and give her her PO medication. He noted there was no more assistance the PACT team couple offer at this time. Pt self-presented to the ED this AM and waited in the waiting room for roughly three hours prior to leaving without being seen. On second visit pt was brought back to the ED by community tool maker, Jose Alfredo, and EMS after pt caused a disturbance at a local small business. Pt ultimately left from triage without being seen. Pt has reported that she cannot ride [employer] bus. She was kicked off the bus two weeks ago per [facility] tool maker but is unclear if she is trespassed. This SW contacted [employer] staff and spoke with supervisor pigment making Rosaline [phone]. She confirms that pt is trespassed for one year as of Friday 05/26. If anything were to change with pt status, I.e. if she were to become more stabilized, ending the trespass before one year could be discussed with [employer] security marianne Kent ([phone]). [facility] tool maker Jose Alfredo indicates he has called out to PACT today but did not reach anyone. He has also reached out to [facility] with the back padder?s department, Sonali Dyer, to collaborate on this patient. Gallo Muñoz, WYATT, CLIENT RESOURCE SPECIALIST
== END 2022-05-27 14:48 | disposition left against medical advice (07) ==
PROVIDERS: Emergency Provider Emergency Medicine; Family Provider Family Medicine; PCP Registered Nurse Diabetes Educator
CPT/HCPCS: 99281

== ENCOUNTER 2022-05-29 22:49 | Emergency (ER) | payer OTHER, MEDICAID, SELFPAY ==
[2022-05-29 23:13] VITALS: BP 195/112; PULSE 97; RESP 16; TEMP 36.9; O2SAT 100; BMI 26.6
[2022-05-29] MEDS: ONDANSETRON 4 MG ODT SL (23:21)
[2022-05-30 01:20] VITALS: BP 181/110; PULSE 82; RESP 16; O2SAT 100
--- NOTE | 2022-05-30 01:38 | ED.PSYCH ---
HPI - Psych General Chief Complaint: Psychiatric Symptoms Stated Complaint: Scared Time Seen by Provider: 05/30/22 01:19 Source: patient Mode of arrival: EMS History of Present Illness HPI Narrative: Patient is a 42-year-old female well known to myself in this department. She is a extensive history of drug abuse and also chronic schizophrenia and frequently is not consistent on any of her medications. She arrives in the emergency department tonight by EMS. She called EMS initially stating that she is scared which is 1 of her common presenting complaints however during my initial evaluation patient states she was having some lower abdominal pain and also fevers body aches and chills. She is uncertain as to how long she is been having the symptoms. She denied any urinary symptoms. Denied any change in bowel habits. Frequently the patient asks for medications to help with her anxiety however during this visit she did not ask for any particular medicines in general. Related Data Home Medications Medication Instructions Recorded Confirmed olanzapine 10 mg tablet 10 mg PO QAM 05/21/22 05/21/22 olanzapine 20 mg tablet 20 mg PO BEDTIME 05/21/22 05/21/22 Previous Rx's Medication Instructions Recorded hydroxyzine HCl 25 mg tablet 25 mg PO QID PRN anxiety #30 tabs 05/21/22 Allergies Allergy/AdvReac Type Severity Reaction Status Date / Time No Known Drug Allergies Allergy Verified 05/27/22 13:44 Review of Systems Constitutional Constitutional: Reports system reviewed and no additional complaints, except as documented Respiratory Respiratory: Reports system reviewed and no additional complaints, except as documented Gastrointestinal Gastrointestinal: Reports system reviewed and no additional complaints, except as documented Genitourinary Genitourinary: Reports system reviewed and no additional complaints, except as documented Integumentary/Breasts Skin/Breast: Reports system reviewed and no additional complaints, except as documented Hematologic/Lymphatic On Anticoagulants: No Patient History Medical History Drug abuse Methamphetamine abuse Schizophrenia Social History Smoking Status: Unknown if ever smoked Smoking Status: Unknown if ever smoked tobacco type: cigarettes alcohol intake frequency: holidays/special occasions only Substance Use Type: methamphetamine and unknown Exam Initial Vital Signs Initial Vital Signs: Vital Signs Temperature 98.5 F 05/29/22 23:13 Pulse Rate 97 H 05/29/22 23:13 Respiratory Rate 16 05/29/22 23:13 Blood Pressure 195/112 H 05/29/22 23:13 Pulse Oximetry 100 05/29/22 23:13 Oxygen Delivery Method Room Air 05/29/22 23:13 [facility] Head: normal to inspection Resp Effort & Inspection: normal respiratory effort Auscultation: clear to auscultation bilaterally Cardio Rate: regular rate Rhythm: regular rhythm GI Inspection: normal to inspection Psych Appearance: disheveled Course Orders Ordered: ED Orders 05/29/22 23:17 Consult to SLASHER TENDER - Client Account Manager Stat 05/30/22 01:50 Covid-19 + FLU A/B + RSV - PCR Stat 05/30/22 01:55 Complete Blood Count AUTO DIFF Stat Comprehensive Metabolic Panel Stat Lipase Stat Test Serum,Qual Stat Discontinued Medications Ondansetron HCl (Ondansetron 4 Mg Odt) 4 mg SL NOW ONE Stop: 05/29/22 23:18 Last Admin: 05/29/22 23:21 Dose: 4 mg Documented By: CELENA Vital Signs Vital signs: Vital Signs - 8 hr 05/29/22 23:13 05/30/22 01:20 Temperature 98.5 F Pulse Rate 97 H 82 Respiratory Rate 16 16 Blood Pressure 195/112 H 181/110 H Pulse Oximetry 100 100 Oxygen Delivery Method Room Air Room Air MDM - Psych Lab Data 05/30/22 01:55 05/30/22 01:55 Labs: Lab Results 05/30/22 05/30/22 05/30/22 Range/Units 01:50 01:55 01:55 WBC 12.7 H (4.5-11.0) X10^3/uL RBC 4.39 (4.0-5.2) X10^6/uL Hgb 11.7 L (12.0-16.0) g/dL Hct 36.3 (36-46) % MCV 82.6 (80-100) fL MCH 26.5 (26-34) PG MCHC 32.1 (30-36) % RDW 16.3 H (11.6-14.8) % Plt Count 428 H (150-400) X10^3/uL Neut % (Auto) 67.6 (50-75) % Lymph % (Auto) 7.5 L (25-40) % [place]ata % (Auto) 5.3 (3-14) % Eos % (Auto) 18.3 H (2-4) % Baso % (Auto) 1.3 (0-2) % Neut # (Auto) 8600 H (6542-6047) /uL Lymph # (Auto) 1000 L (1093-8714) /uL Zapata # (Auto) 700 (0-900) /uL Eos # (Auto) 2300 H (0-450) /uL Baso # (Auto) 200 H (0-100) /uL Sodium 136 L (137-145) mmol/L Potassium 3.4 (3.4-5.1) mmol/L Chloride 100 (98-107) mmol/L Carbon Dioxide 29 (22-32) mmol/L BUN 16 (7-17) mg/dL Creatinine 0.58 (0.52-1.04) mg/dL Estimated GFR > 60 (>60) mL/min BUN/Creatinine Ratio 27.6 H (6-22) Glucose 100 (70-100) mg/dL Calcium 8.3 L (8.4-10.2) mg/dL Total Bilirubin 0.5 (0.2-1.3) mg/dL AST 21 (14-36) IU/L ALT 17 (<35) IU/L Alkaline Phosphatase 76 (38-126) U/L Total Protein 7.5 (6.3-8.2) g/dL Albumin 4.3 (3.5-5.0) g/dL Globulin 3.2 (1.7-4.1) g/dL Albumin/Globulin Ratio 1.3 (1.0-2.8) Lipase (23-300) U/L Serum , Qual (Negative) SARS-CoV-2 (PCR) Negative (Negative) Influenza A (RT-PCR) Flu a negative (NEGATIVE) Influenza B (RT-PCR) Flu b negative (NEGATIVE) RSV (PCR) Negative (Negative) 05/30/22 05/30/22 Range/Units 01:55 01:55 WBC (4.5-11.0) X10^3/uL RBC (4.0-5.2) X10^6/uL Hgb (12.0-16.0) g/dL Hct (36-46) % MCV (80-100) fL MCH (26-34) PG MCHC (30-36) % RDW (11.6-14.8) % Plt Count (150-400) X10^3/uL Neut % (Auto) (50-75) % Lymph % (Auto) (25-40) % Zapata % (Auto) (3-14) % Eos % (Auto) (2-4) % Baso % (Auto) (0-2) % Neut # (Auto) (1055-1503) /uL Lymph # (Auto) (1840-7502) /uL Zapata # (Auto) (0-900) /uL Eos # (Auto) (0-450) /uL Baso # (Auto) (0-100) /uL Sodium (137-145) mmol/L Potassium (3.4-5.1) mmol/L Chloride (98-107) mmol/L Carbon Dioxide (22-32) mmol/L BUN (7-17) mg/dL Creatinine (0.52-1.04) mg/dL Estimated GFR (>60) mL/min BUN/Creatinine Ratio (6-22) Glucose (70-100) mg/dL Calcium (8.4-10.2) mg/dL Total Bilirubin (0.2-1.3) mg/dL AST (14-36) IU/L ALT (<35) IU/L Alkaline Phosphatase (38-126) U/L Total Protein (6.3-8.2) g/dL Albumin (3.5-5.0) g/dL Globulin (1.7-4.1) g/dL Albumin/Globulin Ratio (1.0-2.8) Lipase 122 (23-300) U/L Serum , Qual Negative (Negative) SARS-CoV-2 (PCR) (Negative) Influenza A (RT-PCR) (NEGATIVE) Influenza B (RT-PCR) (NEGATIVE) RSV (PCR) (Negative) MDM Narrative Medical decision making narrative: Patient is disheveled and is at baseline for her. She was very calm in the room today and was somewhat clear on why she was here in the symptoms she was having. She agreed to have some blood drawn and also for my exam. Her workup here in the emergency department is relatively unremarkable. No indication for antibiotics. I have a high suspicion that the patient is once again here in the emergency department for a place to sleep. This has been my suspicion the past several times that I have seen her. Will discharge patient Discharge Plan Departure Patient Disposition: Home Clinical Impression: Body aches Activity Restrictions/Additional Instructions: I do recommend that you contact your PACT team at [phone] for follow-up. Prescriptions: No Action hydroxyzine HCl 25 mg tablet 25 mg PO QID PRN (Reason: anxiety) Qty: 30 0RF olanzapine 10 mg tablet 10 mg PO QAM olanzapine 20 mg tablet 20 mg PO BEDTIME Referrals: Francisco Lobo ARNP [Primary Care Provider] - Stand Alone Forms: Patient Portal/API
[2022-05-30 02:05] LABS: Add Manual Diff / Slide Review NO; Basophils Absolute Auto 200 /uL (0-100); Basophils Percent Auto 1.3 % (0-2); Eosinophils Absolute Auto 2300 /uL (0-450); Eosinophils Percent Auto 18.3 % (2-4); Hematocrit 36.3 % (36-46); Hemoglobin 11.7 g/dL (12.0-16.0); Lymphocytes Absolute Auto 1000 /uL (1100-4500); Lymphocytes Percent Auto 7.5 % (25-40); Mean Corpuscular HGB Conc 32.1 % (30-36); Mean Corpuscular Hemoglobin 26.5 PG (26-34); Mean Corpuscular Volume 82.6 fL (80-100); Monocytes Absolute Auto 700 /uL (0-900); Monocytes Percent Auto 5.3 % (3-14); Neutrophils Absolute Auto 8600 /uL (1500-7000); Neutrophils Percent Auto 67.6 % (50-75); Platelet Count 428 X10^3/uL (150-400); Red Blood Cell Count 4.39 X10^6/uL (4.0-5.2); Red Cell Distribution Width 16.3 % (11.6-14.8); White Blood Cell Count 12.7 X10^3/uL (4.5-11.0)
[2022-05-30 02:13] LABS: Pregnancy Test Serum,Qual Negative (Negative)
[2022-05-30 02:14] LABS: Alanine Aminotransferase 17 IU/L (<35); Albumin 4.3 g/dL (3.5-5.0); Albumin Globulin Ratio 1.3 (1.0-2.8); Alkaline Phosphatase 76 U/L (38-126); Aspartate Aminotransferase 21 IU/L (14-36); BUN Creatinine Ratio 27.6 (6-22); Bilirubin Total 0.5 mg/dL (0.2-1.3); Blood Urea Nitrogen 16 mg/dL (7-17); Calcium 8.3 mg/dL (8.4-10.2); Carbon Dioxide 29 mmol/L (22-32); Chloride 100 mmol/L (98-107); Estimated Glomerular Filt Rate > 60 mL/min (>60); Globulin 3.2 g/dL (1.7-4.1); Glucose 100 mg/dL (70-100); HEMOLYSIS < 15 (0-50); Potassium 3.4 mmol/L (3.4-5.1); Sodium 136 mmol/L (137-145); Total Protein 7.5 g/dL (6.3-8.2)
[2022-05-30 02:15] LABS: Lipase 122 U/L (23-300)
[2022-05-30 02:49] LABS: Influenza A - CEPHEID Flu A NEGATIVE (NEGATIVE); Influenza B - CEPHEID Flu B NEGATIVE (NEGATIVE); Respiratory Syncytial Virus Negative (Negative)
[2022-05-30 02:50] LABS: COVID-19 CEPHEID 4-PLEX PCR Negative (Negative)
== END 2022-05-30 05:54 | disposition home or self-care (01) ==
PROVIDERS: Emergency Provider Emergency Medicine; Family Provider Family Medicine; PCP Registered Nurse Diabetes Educator
DX: R52 Pain, unspecified (principal); F20.9 Schizophrenia, unspecified; Z20.822 Contact with and (suspected) exposure to COVID-19
CPT/HCPCS: 0241U; 36415; 80053; 83690; 84703; 85025; 96372; 99283; J1630

== ENCOUNTER 2022-05-30 15:17 | Emergency (ER) | payer OTHER, MEDICAID, SELFPAY ==
[2022-05-30 15:23] VITALS: PULSE 98; RESP 18; TEMP 36.9; O2SAT 98
--- NOTE | 2022-05-30 15:43 | PC.NURSE ---
PACT team [phone] no answer at [phone]
--- NOTE | 2022-05-30 15:45 | CM.SWNOTE ---
MECHANIC INSULATOR Note Patient arrives via EMS due to concern for unwell. This is patient's 5th ED encounter this week and patient has 102 ED encounters within 12 months. rn employee health calls PACT team but is unable to leave VM. It is reported that patient is requesting someone to walk her to [facility]. [facility] and asks several people to walk her to [facility]. This MECHANIC INSULATOR is to attend coordinating care meeting with PACT team, ED director, patient's PCP and [facility] community apprentice painter hand next week. JENNY Rogers
== END 2022-05-30 15:45 | disposition left against medical advice (07) ==
PROVIDERS: Emergency Provider Emergency Medicine; Family Provider Family Medicine; PCP Registered Nurse Diabetes Educator
CPT/HCPCS: 99281

== ENCOUNTER 2022-05-30 17:13 | Emergency (ER) | payer OTHER, MEDICAID, SELFPAY ==
--- NOTE | 2022-05-30 21:10 | PC.NURSE ---
Pt given water, sandwich, pudding, and a cheese stick
--- NOTE | 2022-05-30 22:31 | PC.NURSE ---
Pt got up and left from rm 3. She would not stop to talk to staff. She left the building and then shortly returned yelling that she couldn't find her factory clerk. The ER entrance doors are locked d/t the time and Khoi started banging on the doors and yelling at the temporary receptionist staff that she couldn't find her factory clerk. She was banging on the glass doors very aggressively and the security services manager and I went out and talked with her. She ended up finding her factory clerk in her pocket and requested that we call the police for her so they could give her a ride to the convenience store. I informed her that was not the proper use of PD services and she light her cigarette and started walking toward [address]
== END 2022-05-30 22:00 | disposition left against medical advice (07) ==
PROVIDERS: Emergency Provider Emergency Medicine; Family Provider Family Medicine; PCP Registered Nurse Diabetes Educator
CPT/HCPCS: 99281

== ENCOUNTER 2022-05-30 23:45 | Emergency (ER) | payer OTHER, MEDICAID, SELFPAY ==
[2022-05-30 23:40] VITALS: BMI 64.0
[2022-05-30] MEDS: HALOPERIDOL 5 MG/ML VIAL IM (23:55)
--- NOTE | 2022-05-31 01:59 | ED_ITS ---
HPI - Psych General Chief Complaint: Psychiatric Symptoms Stated Complaint: screaming- scared- riled up Time Seen by Provider: 05/31/22 00:00 Source: EMS Mode of arrival: EMS History of Present Illness HPI Narrative: 42F smoker with history of schizophrenia and methamphetamine use presents for the 3rd time today, feeling paranoid and is if someone is chasing her. Her last visit she was here briefly in decided to leave before evaluation. She denies any suicidal or homicidal ideation. She does not know if she is been taking her medications. She denies any drug use. There is extensive work going on in the background regarding how to more appropriately support this patient who has presented to the emergency department a significant number of times. Related Data Home Medications Medication Instructions Recorded Confirmed olanzapine 10 mg tablet 10 mg PO QAM 05/21/22 05/21/22 olanzapine 20 mg tablet 20 mg PO BEDTIME 05/21/22 05/21/22 Previous Rx's Medication Instructions Recorded hydroxyzine HCl 25 mg tablet 25 mg PO QID PRN anxiety #30 tabs 05/21/22 Allergies Allergy/AdvReac Type Severity Reaction Status Date / Time No Known Drug Allergies Allergy Verified 05/27/22 13:44 Review of Systems Review of Systems Narrative: GENERAL: Denies chills, fatigue, malaise, fever, sweats. HEENT: Denies sinus pain, ear pain, sore throat, difficulty swallowing, dizziness. RESPIRATORY: Denies dyspnea, cough, wheezing, hemoptysis, sputum. CARDIOVASCULAR: Denies chest pain, palpitations, orthopnea, edema, GASTROINTESTINAL: Denies nausea, vomiting, abdominal pain, diarrhea, constipation, melena. : Denies dysuria, frequency, incontinence, hematuria, urinary retention. MUSCULOSKELETAL: denies weakness, joint pain, or bony pain SKIN: Denies rash, skin lesions, or other NEUROLOGIC: Denies weakness, headache, numbness, change in speech, confusion, seizures, incoordination. PSYCHIATRIC: See HPI 12 point review of systems is negative except for those stated above Patient History Medical History Drug abuse Methamphetamine abuse Schizophrenia Social History Smoking Status: Unknown if ever smoked Smoking Status: Unknown if ever smoked tobacco type: cigarettes alcohol intake frequency: holidays/special occasions only Substance Use Type: methamphetamine and unknown Exam Narrative Exam Narrative: GENERAL: [42] year old patient appears stated age. Well-developed patient, in mild distress. Screaming, clearly afraid, stating somebody is chasing her and requesting that we call the police to help keep her safe HEAD: Atraumatic. Normocephalic. EYES: Pupils equal round and reactive. Extraocular motions intact. No scleral icterus. No injection or drainage. ENT: Nose without bleeding, purulent drainage. Throat without erythema, tonsillar hypertrophy or exudate. Airway patent. NECK: Trachea midline. Non tender CARDIOVASCULAR: Regular rate and rhythm without murmurs, gallops, or rubs. RESPIRATORY: Clear to auscultation. Breath sounds equal bilaterally. No wheezes, rales, or rhonchi. GASTROINTESTINAL: Abdomen soft, non-tender, nondistended. EXTREMITIES: No edema or joint tenderness. BACK: Nontender without deformity or crepitance. No flank tenderness. NEURO: Cranial nerves 2-12 grossly intact SKIN: No rash or erythema of visible areas Course Orders Ordered: Discontinued Medications Haloperidol (Haloperidol 5 Mg/Ml Vial) 5 mg IM NOW ONE Stop: 05/30/22 23:44 Last Admin: 05/30/22 23:55 Dose: 5 mg Documented By: KAMRAN Reevaluation(s) Reevaluation #1: Patient requesting medication, she states that Haldol seems to work better for. Haldol 5 mg ordered. Reevaluation #2: Patient resting comfortably MDM - Psych MDM Narrative Medical decision making narrative: [42] year old patient presents with thoughts of paranoia, that someone was chasing her that she is unsafe Multiple etiologies for patient's symptoms considered including, but not limited to: [Chronic schizophrenia, drug use versus other] Prior Charts reviewed in our EMR Primary Historian: patient Patient's symptoms improved over duration of stay with above-stated therapies. Findings and discharge diagnosis discussed with patient/family followed by verbalization of understanding Return precautions discussed with patient/family whom verbalize understanding of diagnosis and plan Discharge Plan Departure Patient Disposition: Home Clinical Impression: Chronic schizophrenia Instructions: DI for Schizophrenia Activity Restrictions/Additional Instructions: *You have been diagnosed with [chronic schizophrenia] *What to do: *Please continue to take your regular medications as directed. *Please follow up with your primary care provider in 2-3 days, call for an appointment. Let them know you were seen in the Emergency Department and that we ask that you be seen in follow up. We will electronically transmit a record of today's note if your PCP is in our system *If you do not have a primary care provider please contact the [facility] Resource line at [phone]. They will ask some questions about your medical history and help get you set up with a doctor in the community. *Return to Emergency Department if you should have any new, worsening or concerning symptoms, such as [fever greater than 101 F, shaking chills, worsening pain, persistent vomiting or other bothersome symptoms] Prescriptions: No Action hydroxyzine HCl 25 mg tablet 25 mg PO QID PRN (Reason: anxiety) Qty: 30 0RF olanzapine 10 mg tablet 10 mg PO QAM olanzapine 20 mg tablet 20 mg PO BEDTIME Referrals: Francisco Lobo ARNP [Primary Care Provider] - Stand Alone Forms: Patient Portal/API
== END 2022-05-31 06:36 | disposition home or self-care (01) ==
PROVIDERS: Emergency Provider Emergency Medicine; Family Provider Family Medicine; PCP Registered Nurse Diabetes Educator
DX: F20.9 Schizophrenia, unspecified (principal)
CPT/HCPCS: 99283; J1630

== ENCOUNTER 2022-05-31 10:39 | Emergency (ER) | payer OTHER, MEDICAID, SELFPAY ==
[2022-05-31 11:06] VITALS: BP 140/92; PULSE 96; RESP 19; TEMP 36.4; O2SAT 98; BMI 26.2
--- NOTE | 2022-05-31 14:11 | PC.NURSE ---
updated patient multiple times that there is still a wait to come back into the ER. states she would like to lie down and have someone walk with her. I offered her support and gave her a glass of water. she said thank you
--- NOTE | 2022-06-01 03:15 | ED.PSYCH ---
HPI - Psych General Chief Complaint: Psychiatric Symptoms Stated Complaint: Scared/ people after her Time Seen by Provider: 05/31/22 12:15 Source: patient and EMS Mode of arrival: EMS History of Present Illness HPI Narrative: 42-year-old female smoker with history of schizophrenia and methamphetamine use presents stating that she feels afraid that someone is chasing her. She denies suicidal or homicidal ideation. She is otherwise well and free of complaint. She denies any chest pain or shortness of breath and has had no nausea, vomiting or diarrhea. Related Data Home Medications Medication Instructions Recorded Confirmed olanzapine 10 mg tablet 10 mg PO QAM 05/21/22 05/21/22 olanzapine 20 mg tablet 20 mg PO BEDTIME 05/21/22 05/21/22 Previous Rx's Medication Instructions Recorded hydroxyzine HCl 25 mg tablet 25 mg PO QID PRN anxiety #30 tabs 05/21/22 Allergies Allergy/AdvReac Type Severity Reaction Status Date / Time No Known Drug Allergies Allergy Verified 05/27/22 13:44 Review of Systems Review of Systems Narrative: GENERAL: Denies chills, fatigue, malaise, fever, sweats. HEENT: Denies sinus pain, ear pain, sore throat, difficulty swallowing, dizziness. RESPIRATORY: Denies dyspnea, cough, wheezing, hemoptysis, sputum. CARDIOVASCULAR: Denies chest pain, palpitations, orthopnea, edema, GASTROINTESTINAL: Denies nausea, vomiting, abdominal pain, diarrhea, constipation, melena. : Denies dysuria, frequency, incontinence, hematuria, urinary retention. MUSCULOSKELETAL: denies weakness, joint pain, or bony pain SKIN: Denies rash, skin lesions, or other NEUROLOGIC: Denies weakness, headache, numbness, change in speech, confusion, seizures, incoordination. PSYCHIATRIC: See HPI 12 point review of systems is negative except for those stated above Patient History Medical History Drug abuse Methamphetamine abuse Schizophrenia Social History Smoking Status: Unknown if ever smoked Smoking Status: Unknown if ever smoked tobacco type: cigarettes alcohol intake frequency: holidays/special occasions only Substance Use Type: methamphetamine and unknown Exam Narrative Exam Narrative: GEN: AOx3 and in mild distress, resting comfortably, speaking clearly, walking a straight line EYES: Pupils are equal, round, and reactive to light and accommodation. Extraoccular muscles are intact bilaterally. There is no subconjunctival hemorrhage or exudate. CHEST: Lungs are clear to auscultation bilaterally and free of wheezes, rales, or rhonchi. Heart rate is regular rhythm, there are no murmurs, clicks, rubs, or gallops. There is no chest wall tenderness. ABD: Abdomen is soft and nontender. There is no guarding or rebound. Bowel sounds are normal in all 4 quadrants. There is no mass or organomegaly. EXT: Full painless ROM of all extremities with no loss of sensation or strength. SKIN: Warm, pink, and dry. No erythema or rash Initial Vital Signs Initial Vital Signs: Vital Signs Temperature 97.6 F 05/31/22 11:06 Pulse Rate 96 H 05/31/22 11:06 Respiratory Rate 19 05/31/22 11:06 Blood Pressure 140/92 H 05/31/22 11:06 Pulse Oximetry 98 05/31/22 11:06 Oxygen Delivery Method Room Air 05/31/22 11:06 MDM - Psych MDM Narrative Medical decision making narrative: [42] year old patient presents with thoughts that someone is chasing her Multiple etiologies for patient's symptoms considered including, but not limited to: [Methamphetamine use, schizophrenia versus other] Prior Charts reviewed in our EMR Primary Historian: patient No evidence of emergency medical condition Patient's symptoms improved over duration of stay with above-stated therapies. Findings and discharge diagnosis discussed with patient/family followed by verbalization of understanding Return precautions discussed with patient/family whom verbalize understanding of diagnosis and plan Discharge Plan Departure Patient Disposition: Home Clinical Impression: Chronic schizophrenia Instructions: DI for Schizophrenia Activity Restrictions/Additional Instructions: There is no evidence of an emergent or life threatening illness at this time, but follow up with your doctor in 1-2 days is recommended nonetheless to continue to rule out serious underlying causes of your symptoms. Please call the office for an appointment. Please return to the Emergency Department for any worsening or persistent symptoms. Please take medications as directed. Prescriptions: No Action hydroxyzine HCl 25 mg tablet 25 mg PO QID PRN (Reason: anxiety) Qty: 30 0RF olanzapine 10 mg tablet 10 mg PO QAM olanzapine 20 mg tablet 20 mg PO BEDTIME Referrals: Francisco Lobo ARNP [Primary Care Provider] - Stand Alone Forms: Patient Portal/API
== END 2022-06-01 03:30 | disposition home or self-care (01) ==
PROVIDERS: Emergency Provider Emergency Medicine; Family Provider Family Medicine; PCP Registered Nurse Diabetes Educator
DX: F20.9 Schizophrenia, unspecified (principal)
CPT/HCPCS: 99283

== ENCOUNTER 2022-06-01 13:51 | Emergency (ER) | payer OTHER, MEDICAID, SELFPAY ==
[2022-06-01 13:52] VITALS: BP 160/94; PULSE 96; RESP 16; TEMP 36.3; O2SAT 99; BMI 29.4
--- NOTE | 2022-06-01 15:19 | ED.PSYCH ---
HPI - Psych General Chief Complaint: Psychiatric Symptoms Stated Complaint: scared Time Seen by Provider: 06/01/22 15:18 Source: patient and EMS Mode of arrival: EMS Limitations: no limitations History of Present Illness HPI Narrative: Patient is a 42-year-old female. Well known to myself in this emergency department. Is here for the night time in the past week. She is a known history of chronic schizophrenia and also drug abuse. She stated that she was outside when the local businesses when she started to feel scared. She started to feel like someone was after her. That is why she contacted the paramedics. This is a very common presentation for her. She stated that she is actually now feeling better than what she did earlier. She states she does not remember the last time she saw the PACT team does not know the last time she is had any medications. Related Data Home Medications Medication Instructions Recorded Confirmed olanzapine 10 mg tablet 10 mg PO QAM 05/21/22 05/21/22 olanzapine 20 mg tablet 20 mg PO BEDTIME 05/21/22 05/21/22 Previous Rx's Medication Instructions Recorded hydroxyzine HCl 25 mg tablet 25 mg PO QID PRN anxiety #30 tabs 05/21/22 Allergies Allergy/AdvReac Type Severity Reaction Status Date / Time No Known Drug Allergies Allergy Verified 05/27/22 13:44 Review of Systems Psychiatric Psychiatric: Reports system reviewed and no additional complaints, except as documented Patient History Medical History Drug abuse Methamphetamine abuse Schizophrenia Social History Smoking Status: Unknown if ever smoked Smoking Status: Unknown if ever smoked tobacco type: cigarettes alcohol intake frequency: holidays/special occasions only Substance Use Type: methamphetamine and unknown Exam Initial Vital Signs Initial Vital Signs: Vital Signs Temperature 97.3 F L 06/01/22 13:52 Pulse Rate 96 H 06/01/22 13:52 Respiratory Rate 16 06/01/22 13:52 Blood Pressure 160/94 H 06/01/22 13:52 Pulse Oximetry 99 06/01/22 13:52 Oxygen Delivery Method Room Air 06/01/22 13:52 Const General: disheveled Psych Other: Patient is very disheveled but is at her baseline. She actually had somewhat of a coherent conversation she stated that she became scared because she thought someone was chasing her. She is not having those thoughts now Course Orders Ordered: ED Orders 06/01/22 14:19 Consult to [employer] - Professor Of Communication And Writing Stat Discontinued Medications Olanzapine (Olanzapine Odt 10 Mg Tab) 20 mg PO NOW ONE Stop: 06/01/22 15:20 Vital Signs Vital signs: Vital Signs - 8 hr 06/01/22 13:52 Temperature 97.3 F L Pulse Rate 96 H Respiratory Rate 16 Blood Pressure 160/94 H Pulse Oximetry 99 Oxygen Delivery Method Room Air MDM - Psych MDM Narrative Medical decision making narrative: Patient is at her baseline. Does not know the last time she talked with her PACt team. Does not know the last time she is had any medications. She is no longer feeling scared. There is no indication for labs. Give her a dose of Zyprexa. Will discharge patient Discharge Plan Departure Patient Disposition: Home Clinical Impression: Chronic schizophrenia Prescriptions: No Action hydroxyzine HCl 25 mg tablet 25 mg PO QID PRN (Reason: anxiety) Qty: 30 0RF olanzapine 10 mg tablet 10 mg PO QAM olanzapine 20 mg tablet 20 mg PO BEDTIME Referrals: Francisco Lobo ARNP [Primary Care Provider] - Stand Alone Forms: Patient Portal/API
[2022-06-01] MEDS: OLANZapine ODT 10 MG TAB 20 MG PO (15:28)
--- NOTE | 2022-06-01 15:29 | CM.SWNOTE ---
[employer] Note Patient presents to ED via EMS due to concern for being scared. Patient discharged from this ED at 3:15am this morning. Patient has hx of 9 ED encounters in the last week, some of these encounters patient left before being seen. Patient has hx of 107 ED encounters in the last 12 months [employer] and ED provider enter room to meet with patient. Patient presents as calm, communicative and cooperative. Patient denies SI/HI in triage. Patient states she was scared but now she is not. Patient endorses she stayed at the [facility] last night and has not been in [place] in a while, patient states she was banned from the bus. Patient endorses she plans to connect with [facility]. Patient requests this [employer] call PACT team and let them know where patient is and that she is reaching out. Patient endorses she has not met with the PACT team in quite some time. [employer] calls PACT team and leaves VM regarding patient. [employer] to coordinate care with PACT team in meeting later this week. [employer] calls and reviews local shelters and there is no answer or no openings at this time. ED provider provides patient of dose of patient's prescribed Olanzapine 20mg. Plan: patient d/c's to community upon medical clearance. PACT team to f/u with patient. JENNY Rogers
== END 2022-06-01 15:35 | disposition home or self-care (01) ==
PROVIDERS: Emergency Provider Emergency Medicine; Family Provider Family Medicine; PCP Registered Nurse Diabetes Educator
DX: F20.9 Schizophrenia, unspecified (principal)
CPT/HCPCS: 99283

== ENCOUNTER 2022-06-02 00:06 | Emergency (ER) | payer OTHER, MEDICAID, SELFPAY ==
[2022-06-02 00:07] VITALS: BP 159/98; PULSE 76; RESP 18; TEMP 37.1; O2SAT 99; BMI 21.1
--- NOTE | 2022-06-02 01:41 | ED.RECABL ---
HPI - Recheck/Abnormal Lab/Rx General Chief Complaint: Recheck/Abnormal Lab/Rx Stated Complaint: scared Time Seen by Provider: 06/02/22 00:07 Source: patient Mode of arrival: EMS History of Present Illness HPI narrative: 42-year-old female smoker with history of methamphetamine abuse and schizophrenia with a significant number of visits is well-known to myself and staff presents by EMS for evaluation of feeling scared and is somewhat is chasing her. She was seen earlier today and given a dose of olanzapine. She felt much better and went about her day. She states that though she is feeling a bit anxious and scared that somebody is chasing her she largely feels pretty well. She denies any chest pain or shortness of breath. She states that she actually is here because we make her feel safe and she just wants a place to rest. She denies any active symptoms. She is otherwise well and free of complaint Related Data Home Medications Medication Instructions Recorded Confirmed olanzapine 10 mg tablet 10 mg PO QAM 05/21/22 05/21/22 olanzapine 20 mg tablet 20 mg PO BEDTIME 05/21/22 05/21/22 Previous Rx's Medication Instructions Recorded hydroxyzine HCl 25 mg tablet 25 mg PO QID PRN anxiety #30 tabs 05/21/22 Allergies Allergy/AdvReac Type Severity Reaction Status Date / Time No Known Drug Allergies Allergy Verified 05/27/22 13:44 Review of Systems Review of Systems Narrative: GENERAL: Denies chills, fatigue, malaise, fever, sweats. HEENT: Denies sinus pain, ear pain, sore throat, difficulty swallowing, dizziness. RESPIRATORY: Denies dyspnea, cough, wheezing, hemoptysis, sputum. CARDIOVASCULAR: Denies chest pain, palpitations, orthopnea, edema, GASTROINTESTINAL: Denies nausea, vomiting, abdominal pain, diarrhea, constipation, melena. : Denies dysuria, frequency, incontinence, hematuria, urinary retention. MUSCULOSKELETAL: denies weakness, joint pain, or bony pain SKIN: Denies rash, skin lesions, or other NEUROLOGIC: Denies weakness, headache, numbness, change in speech, confusion, seizures, incoordination. PSYCHIATRIC: See HPI 12 point review of systems is negative except for those stated above Patient History Medical History Drug abuse Methamphetamine abuse Schizophrenia Social History Smoking Status: Unknown if ever smoked Smoking Status: Unknown if ever smoked tobacco type: cigarettes alcohol intake frequency: holidays/special occasions only Substance Use Type: methamphetamine and unknown Exam Narrative Exam Narrative: GEN: AOx3 and in no obvious distress, speaking clearly, not slur her words and walking a straight line EYES: Pupils are equal, round, and reactive to light and accommodation. Extraoccular muscles are intact bilaterally. There is no subconjunctival hemorrhage or exudate. CHEST: Lungs are clear to auscultation bilaterally and free of wheezes, rales, or rhonchi. Heart rate is regular rhythm, there are no murmurs, clicks, rubs, or gallops. There is no chest wall tenderness. ABD: Abdomen is soft and nontender. There is no guarding or rebound. Bowel sounds are normal in all 4 quadrants. There is no mass or organomegaly. EXT: Full painless ROM of all extremities with no loss of sensation or strength. SKIN: Warm, pink, and dry. No erythema or rash Initial Vital Signs Initial Vital Signs: Vital Signs Temperature 98.7 F 06/02/22 00:07 Pulse Rate 76 06/02/22 00:07 Respiratory Rate 18 06/02/22 00:07 Blood Pressure 159/98 H 06/02/22 00:07 Pulse Oximetry 99 06/02/22 00:07 Oxygen Delivery Method Room Air 06/02/22 00:07 Course Vital Signs Vital signs: Vital Signs - 8 hr 06/02/22 00:07 Temperature 98.7 F Pulse Rate 76 Respiratory Rate 18 Blood Pressure 159/98 H Pulse Oximetry 99 Oxygen Delivery Method Room Air MDM - Recheck/Abnormal Lab/Rx MDM Narrative Medical decision making narrative: [42] year old patient presents with no specific complaint receives a medical screening exam and thankfully no evidence of a medical emergency is present. Multiple etiologies for patient's symptoms considered including, but not limited to: [Chronic schizophrenia, medical noncompliance, methamphetamine use versus other] Prior Charts reviewed in our EMR Primary Historian: patient Patient's symptoms improved over duration of stay with above-stated therapies. Findings and discharge diagnosis discussed with patient/family followed by verbalization of understanding Return precautions discussed with patient/family whom verbalize understanding of diagnosis and plan Discharge Plan Departure Patient Disposition: Home Clinical Impression: Chronic schizophrenia Instructions: DI for Schizophrenia Activity Restrictions/Additional Instructions: *You have been diagnosed with [chronic schizophrenia] *What to do: *Please continue to take your regular medications as directed. [ ] New medication prescriptions sent to your pharmacy: [ ] [ ] New medication written as a paper prescription [ ] No new medications given *Please follow up with your primary care provider in 2-3 days, call for an appointment. Let them know you were seen in the Emergency Department and that we ask that you be seen in follow up. We will electronically transmit a record of today's note if your PCP is in our system *If you do not have a primary care provider please contact the [facility] Resource line at [phone]. They will ask some questions about your medical history and help get you set up with a doctor in the community. *Return to Emergency Department if you should have any new, worsening or concerning symptoms, such as [fever greater than 101 F, shaking chills, worsening pain, persistent vomiting or other bothersome symptoms] Prescriptions: No Action hydroxyzine HCl 25 mg tablet 25 mg PO QID PRN (Reason: anxiety) Qty: 30 0RF olanzapine 10 mg tablet 10 mg PO QAM olanzapine 20 mg tablet 20 mg PO BEDTIME Referrals: Francisco Lobo ARNP [Primary Care Provider] - Stand Alone Forms: Patient Portal/API
== END 2022-06-02 00:14 | disposition home or self-care (01) ==
LOC: ED 00:14
PROVIDERS: Emergency Provider Emergency Medicine; Family Provider Family Medicine; PCP Registered Nurse Diabetes Educator
DX: F20.9 Schizophrenia, unspecified (principal)
CPT/HCPCS: 99281

== ENCOUNTER 2022-06-02 13:55 | Emergency (ER) | payer OTHER, MEDICAID, SELFPAY ==
[2022-06-02 14:16] VITALS: BP 148/94; PULSE 108; RESP 16; TEMP 36.6; O2SAT 99; BMI 25.8
--- NOTE | 2022-06-02 15:57 | ED.PSYCH ---
HPI - Psych General Chief Complaint: Psychiatric Symptoms Stated Complaint: chest pain Time Seen by Provider: 06/02/22 15:54 Source: patient Mode of arrival: Ambulatory History of Present Illness HPI Narrative: 42-year-old female. Well known to myself. Presents today with complaint of feeling scared. This once again is a very common presentation for Claire. The stated complaint was chest pain but when I asked her about this in the triage room she stated that the reason she came in was because she was scared. She does have a hotel room. Yesterday she was seen here in the emergency department by myself for similar symptoms. She was given a dose of Zyprexa. She states that it did help her symptoms and she went home and slept. She would like to have another dose of the Zyprexa. Related Data Home Medications Medication Instructions Recorded Confirmed olanzapine 10 mg tablet 10 mg PO QAM 05/21/22 05/21/22 olanzapine 20 mg tablet 20 mg PO BEDTIME 05/21/22 05/21/22 Previous Rx's Medication Instructions Recorded hydroxyzine HCl 25 mg tablet 25 mg PO QID PRN anxiety #30 tabs 05/21/22 Allergies Allergy/AdvReac Type Severity Reaction Status Date / Time No Known Drug Allergies Allergy Verified 05/27/22 13:44 Review of Systems Psychiatric Psychiatric: Reports system reviewed and no additional complaints, except as documented Patient History Medical History Drug abuse Methamphetamine abuse Schizophrenia Social History Smoking Status: Unknown if ever smoked Smoking Status: Unknown if ever smoked tobacco type: cigarettes alcohol intake frequency: holidays/special occasions only Substance Use Type: methamphetamine and unknown Exam Initial Vital Signs Initial Vital Signs: Vital Signs Temperature 97.8 F 06/02/22 14:16 Pulse Rate 108 H 06/02/22 14:16 Respiratory Rate 16 06/02/22 14:16 Blood Pressure 148/94 H 06/02/22 14:16 Pulse Oximetry 99 06/02/22 14:16 Oxygen Delivery Method Room Air 06/02/22 14:16 HENMT Head: normal to inspection Resp Effort & Inspection: normal respiratory effort Psych Other: Calm, cooperative, very disheveled, Course Orders Ordered: Discontinued Medications Olanzapine (Olanzapine Odt 10 Mg Tab) 10 mg PO NOW ONE Stop: 06/02/22 15:58 Vital Signs Vital signs: Vital Signs - 8 hr 06/02/22 14:16 Temperature 97.8 F Pulse Rate 108 H Respiratory Rate 16 Blood Pressure 148/94 H Pulse Oximetry 99 Oxygen Delivery Method Room Air MDM - Psych MDM Narrative Medical decision making narrative: Patient presents at her baseline. She was given a dose of Zyprexa. Will discharge patient Discharge Plan Departure Patient Disposition: Home Clinical Impression: Chronic schizophrenia Instructions: DI for Schizophrenia Prescriptions: No Action hydroxyzine HCl 25 mg tablet 25 mg PO QID PRN (Reason: anxiety) Qty: 30 0RF olanzapine 10 mg tablet 10 mg PO QAM olanzapine 20 mg tablet 20 mg PO BEDTIME Referrals: Francisco Lobo ARNP [Primary Care Provider] - Stand Alone Forms: Patient Portal/API
[2022-06-02] MEDS: OLANZapine ODT 10 MG TAB PO ×2 (16:08)
--- NOTE | 2022-06-02 16:32 | PC.NURSE ---
Pt medicated with zyprexa as requested. Pt saw Dr Capps and asked him multiple questions regarding her care. Pt AAOx3. calm and cooperative. Pt asking for taxi [place] go [place] the [place]. [facility] called and pt left in cab.
== END 2022-06-02 16:20 | disposition home or self-care (01) ==
PROVIDERS: Emergency Provider Emergency Medicine; Family Provider Family Medicine; PCP Registered Nurse Diabetes Educator
DX: F20.9 Schizophrenia, unspecified (principal)
CPT/HCPCS: 99281; 99283

== ENCOUNTER 2022-06-02 17:22 | Emergency (ER) | payer OTHER, MEDICAID, SELFPAY ==
[2022-06-02 17:22] VITALS: BP 155/100; PULSE 96; RESP 16; TEMP 36.6; O2SAT 99
== END 2022-06-02 18:00 | disposition left against medical advice (07) ==
PROVIDERS: Emergency Provider Emergency Medicine; Family Provider Family Medicine; PCP Registered Nurse Diabetes Educator
CPT/HCPCS: 99281

== ENCOUNTER 2022-06-03 16:57 | Emergency (ER) | payer OTHER, MEDICAID, SELFPAY ==
[2022-06-03 17:21] VITALS: BP 148/98; PULSE 109; RESP 18; TEMP 36.1; O2SAT 99; BMI 26.2
--- NOTE | 2022-06-03 19:39 | CM.SWNOTE ---
Social Work Note 06/03/22 13:00 SW was informed by community pipe machine operator that he had seen pt arriving to the ED earlier today and noted she had a PCP appt in the upcoming 15 minutes. He walked pt to PCP appt. 16:00 SW then received a phone call from Tiara with [facility] PACT. She received a call from [facility] pt was here at the hospital. She indicates she met pt and was able to give her her daily medication dose. She attempted to walk pt to the [facility], as Tiara cannot drive the patient, but pt continuously wanted to stop and sit down. Pt ultimately would not walk with Tiara at a reasonable pace and Tiara had other commitments and left pt while pt walking to the [facility]. Pt is checked into the ED at this time for chest pain. she remains in the lobby and this SW has not had direct contact or communication with her today. Gallo Muñoz, MONEY COUNTER, PRESIDENT
== END 2022-06-04 06:37 | disposition left against medical advice (07) ==
PROVIDERS: Emergency Provider Emergency Medicine; Family Provider Family Medicine; PCP Registered Nurse Diabetes Educator
DX: R07.9 Chest pain, unspecified (principal)
CPT/HCPCS: 93005; 93010; 99281

== ENCOUNTER 2022-06-04 14:05 | Emergency (ER) | payer OTHER, MEDICAID, SELFPAY ==
--- NOTE | 2022-06-04 16:30 | PC.NURSE ---
Have attempted to triage pt multiple times since arrival. Each time pt declines. Pt denies HI/SI. Is oriented to time and place. Will continue to attempt. She is pink/warm/dry and with easy work of breathing.
--- NOTE | 2022-06-04 18:23 | PC.NURSE ---
After multiple attempts at triage, Juanito saw an [place] police department secretary and asked him for a ride home which he agrees.
== END 2022-06-04 18:09 | disposition left against medical advice (07) ==
PROVIDERS: Emergency Provider Emergency Medicine; Family Provider Family Medicine; PCP Registered Nurse Diabetes Educator

== ENCOUNTER 2022-06-05 08:57 | Emergency (ER) | payer OTHER, MEDICAID, SELFPAY ==
--- NOTE | 2022-06-05 09:01 | PC.NURSE ---
Pt arrived via EMS and said to Jose Alfredo and staff that she just wanted a ride here and then walked away. PACT team has been notified
--- NOTE | 2022-06-05 09:08 | PC.NURSE ---
Pt got on the [facility] bus
== END 2022-06-05 08:58 | disposition left against medical advice (07) ==
LOC: ED 09:18
PROVIDERS: Emergency Provider Emergency Medicine; Family Provider Family Medicine; PCP Registered Nurse Diabetes Educator

== ENCOUNTER 2022-06-05 12:28 | Emergency (ER) | payer OTHER, MEDICAID, SELFPAY ==
--- NOTE | 2022-06-05 12:45 | PC.NURSE ---
patient not with belongings in lobby
[2022-06-05 13:35] VITALS: BP 148/88; PULSE 88; RESP 18; TEMP 36.1; O2SAT 96
--- NOTE | 2022-06-05 13:45 | PC.NURSE ---
Patient requesting cab voucher to [facility]. SW aware.
[2022-06-05] MEDS: OLANZapine ODT 10 MG TAB PO (13:52)
--- NOTE | 2022-06-05 14:41 | PC.NURSE ---
[employer] called, refused to pharmacy picking tech
--- NOTE | 2022-06-05 14:42 | PC.NURSE ---
Made patient aware that [employer] taxi did not want to take her to the [facility]. I went out and told the patient. I reminded her of her appointment at 3 pm with the pact team in front of [place] [facility]. She mumbled and started to walk around. distillery worker general aware.
--- NOTE | 2022-06-05 14:42 | PC.NURSE ---
Pt requested a cab voucher to reach her PACT team appt scheduled at [address]. This LABEL DESIGNER called [employer] and the taxi service refused to drive her to destination because it was a short enough distance for her to walk and pt was rude to the employee from previous experience.
--- NOTE | 2022-06-05 15:49 | CM.SWNOTE ---
METAL FABRICATING SHOP HELPER Note Patient presents to ED via EMS, this is patient's 2nd ED presentation to ED today. Community X Ray Technician Jose Alfredo Esqueda endorses that patient requested to come to ED. It was reported by community supervisory aide that patient has 1500 appt with PACT team at [facility]. This METAL FABRICATING SHOP HELPER does not meet with patient as patient continues to wait in lobby, METAL FABRICATING SHOP HELPER calls PACT team and leaves VM regarding patient's presentation in ED waiting room. ED team attempted to set up [employer] taxi to take patient to PACT appt but [employer] refused to pickle pumper patient. Patient endorses she was too afraid to walk there alone. It is reported by security that the PACT team picked patient up at approximately 1545. Plan: Community coordination care meeting with PACT team will take place tomorrow afternoon regarding patient. JENNY Rogers
== END 2022-06-05 15:45 | disposition left against medical advice (07) ==
PROVIDERS: Emergency Provider Emergency Medicine; Family Provider Family Medicine; PCP Registered Nurse Diabetes Educator
DX: R07.9 Chest pain, unspecified (principal)
CPT/HCPCS: 99283

== ENCOUNTER 2022-06-06 06:01 | Emergency (ER) | payer OTHER, MEDICAID, SELFPAY ==
[2022-06-06 06:58] VITALS: BP 178/98; PULSE 95; RESP 18; TEMP 36.4; O2SAT 100
--- NOTE | 2022-06-06 08:15 | ED.RECABL ---
HPI - Recheck/Abnormal Lab/Rx General Chief Complaint: Recheck/Abnormal Lab/Rx Stated Complaint: chest pain Time Seen by Provider: 06/06/22 08:10 Source: patient Mode of arrival: Ambulatory History of Present Illness HPI narrative: Patient here for complaints of chest pain. However, on history questioning, patient states she is here because she is tired and has no where to go. She wanted to sleep here. Patient is homeless however patient has had extensive resources for shelters and mental health care but she is noncompliant. Patient has been seen here 8 times this month already. Patient has history of chronic schizophrenia. No prior history of coronary disease. She tells me that she does not have any family members that she knows of has heart disease. She does smoke cigarettes. She has known history of amphetamine use. However she states she is here because she is tired and needs a place to sleep. Related Data Home Medications Medication Instructions Recorded Confirmed olanzapine 10 mg tablet 10 mg PO QAM 05/21/22 06/03/22 olanzapine 20 mg tablet 20 mg PO BEDTIME 05/21/22 06/03/22 Previous Rx's Medication Instructions Recorded hydroxyzine HCl 25 mg tablet 25 mg PO QID PRN anxiety #30 tabs 05/21/22 permethrin 5 % topical cream 1 applic topical Q14D 2 doses #60 06/11/22 grams Allergies Allergy/AdvReac Type Severity Reaction Status Date / Time No Known Drug Allergies Allergy Verified 06/11/22 07:09 Review of Systems Review of Systems Narrative: GENERAL: negative chills, positive fatigue, negative malaise, fever, sweats. HEENT: negative sinus pain, ear pain, sore throat RESPIRATORY: negative dyspnea, cough CARDIOVASCULAR: negative chest pain, palpitations GASTROINTESTINAL: negative nausea, vomiting, abdominal pain : negative dysuria, frequency, hematuria MUSCULOSKELETAL: negative muscle or bony pain SKIN: negative rash, skin lesions NEUROLOGIC: negative weakness, numbness ROS Unobtainable: All systems reviewed & are unremarkable except as noted in HPI and below Patient History Medical History Drug abuse Homeless single person Methamphetamine abuse Schizophrenia Social History Smoking Status: Unknown if ever smoked Smoking Status: Unknown if ever smoked tobacco type: cigarettes alcohol intake frequency: holidays/special occasions only Substance Use Type: methamphetamine and unknown Exam Narrative Exam Narrative: GENERAL: in no distress, not toxic not dyspneic. Patient sleeping but awakes for questions and exam HEAD: Normocephalic. EYES: Pupils equal round ENT: Mucous membranes moist. NECK: Trachea midline. CARDIOVASCULAR: Regular rate and rhythm without murmurs RESPIRATORY: Clear to auscultation. Breath sounds equal bilaterally. No wheezes, rales, or rhonchi. GASTROINTESTINAL: Abdomen soft, non-tender EXTREMITIES: No gross deformities. BACK: No flank tenderness. NEURO: AOx3. Clear speech SKIN: Warm and dry PSYCH: Not anxious, is cooperative, negative SI negative HI Initial Vital Signs Initial Vital Signs: Vital Signs Temperature 97.6 F 06/06/22 06:58 Pulse Rate 95 H 06/06/22 06:58 Respiratory Rate 18 06/06/22 06:58 Blood Pressure 178/98 H 06/06/22 06:58 Pulse Oximetry 100 06/06/22 06:58 Scores HEART Score Heart Score history: Slightly Suspicious Heart Score EKG: Normal Heart Score Age: < 45 years old Heart Score risk factors: 1-2 risk factors Course Orders Ordered: ED Orders 06/06/22 08:50 EKG-12 Lead Stat Vital Signs Vital signs: Vital Signs - 8 hr 06/06/22 06:58 Temperature 97.6 F Pulse Rate 95 H Respiratory Rate 18 Blood Pressure 178/98 H Pulse Oximetry 100 MDM - Recheck/Abnormal Lab/Rx MDM Narrative Medical decision making narrative: Patient here for complaints of chest pain. However, on history questioning, patient states she is here because she is tired and has no where to go. She wanted to sleep here. Patient is homeless however patient has had extensive resources for shelters and mental health care but she is noncompliant. Patient has been seen here 8 times this month already. Patient has history of chronic schizophrenia. No prior history of coronary disease. She tells me that she does not have any family members that she knows of has heart disease. She does smoke cigarettes. She has known history of amphetamine use. However she states she is here because she is tired and needs a place to sleep. After history and exam EKG ordered [facility] CC: Fatigue Complicating co-morbidities: Chronic schizophrenia noncompliance Data collected from: Patient Medical records reviewed: Multiple ER visits here including recent visit for chest pain 1 month ago Differential considered: Includes but not limited to noncompliance/chronic schizophrenia/fatigue Exam documented above, pertinent findings include: Nontender chest Independently reviewed EKG as above normal sinus rhythm rate [address] elevation or depression Treatments: EKG Re-evaluations: Awoke patient, patient denies any chest pain. She has been here for 3 hours sleeping. Reviewed results with her and recommended her to continue her home medications and follow up with her providers Discussion: At this time no blood work or troponin her chest x-ray indicated. Patient willing admits she is here because she needs a place to sleep. She has no where to go. Patient is noncompliant with her provided services for senior care and mental health and her medications. Low heart risk factors. Patient again, states she is here because she needs a place to sleep. I do not feel at this time blood work troponin chest x-ray indicated as she willingly admits why she is here. Diagnosis: Fatigue/noncompliance/homeless Discharge Plan Departure Patient Disposition: Home Clinical Impression: Fatigue, History of homeless, Non-compliant behavior Instructions: DI for Fatigue Activity Restrictions/Additional Instructions: Please do take your home medications. Please do see your providers that have been arranged for you. Please utilize resources that have been provided for you for senior care as well. Return if worse if any questions or concerns Prescriptions: No Action hydroxyzine HCl 25 mg tablet 25 mg PO QID PRN (Reason: anxiety) Qty: 30 0RF olanzapine 10 mg tablet 10 mg PO QAM olanzapine 20 mg tablet 20 mg PO BEDTIME permethrin 5 % cream 1 applic topical Q14D Qty: 60 0RF Rx Instructions: apply second treatment 14 days after first treatment if live lice remain Referrals: Francisco Lobo ARNP [Primary Care Provider] - Stand Alone Forms: Patient Portal/API
== END 2022-06-06 09:16 | disposition home or self-care (01) ==
PROVIDERS: Emergency Provider Emergency Medicine; Family Provider Family Medicine; PCP Registered Nurse Diabetes Educator
DX: R53.83 Other fatigue (principal); Z59.00 Homelessness unspecified
CPT/HCPCS: 93005

== ENCOUNTER 2022-06-06 19:45 | Emergency (ER) | payer OTHER, MEDICAID, SELFPAY ==
[2022-06-06 19:52] VITALS: BP 177/98; PULSE 99; RESP 18; TEMP 36.6; O2SAT 98
--- NOTE | 2022-06-07 04:23 | ED.ANXIETY ---
HPI - Anxiety General Chief Complaint: Anxiety Stated Complaint: scared Time Seen by Provider: 06/06/22 19:57 Source: family Mode of arrival: Ambulatory History of Present Illness HPI narrative: 42-year-old female Claire here the 2nd time today. She is here more frequently than normal history of chronic schizophrenia presents today via EMS for not feeling well. She says her heart hurts. That is nighttime and she is looking for a place to stay. Has been coming to the emergency department numerous times sometimes twice a day. Sometimes she leaves before she seem another time she states. Community meeting about her finally happened today the. It was recommended that when she comes to the ED she gets seen in triage for medical screening then maybe discharge. She is not taken any of her psychiatric meds she is not have any prolonged stays in the ED. Related Data Home Medications Medication Instructions Recorded Confirmed olanzapine 10 mg tablet 10 mg PO QAM 05/21/22 06/03/22 olanzapine 20 mg tablet 20 mg PO BEDTIME 05/21/22 06/03/22 Previous Rx's Medication Instructions Recorded hydroxyzine HCl 25 mg tablet 25 mg PO QID PRN anxiety #30 tabs 05/21/22 Allergies Allergy/AdvReac Type Severity Reaction Status Date / Time No Known Drug Allergies Allergy Verified 06/03/22 16:23 Patient History Medical History Drug abuse Methamphetamine abuse Schizophrenia Social History Smoking Status: Unknown if ever smoked Smoking Status: Unknown if ever smoked tobacco type: cigarettes alcohol intake frequency: holidays/special occasions only Substance Use Type: methamphetamine and unknown Exam Initial Vital Signs Initial Vital Signs: Vital Signs Temperature 98 F 06/06/22 19:52 Pulse Rate 99 H 06/06/22 19:52 Respiratory Rate 18 06/06/22 19:52 Blood Pressure 177/98 H 06/06/22 19:52 Pulse Oximetry 98 06/06/22 19:52 Oxygen Delivery Method Room Air 06/06/22 19:52 GENERAL: Alert disheveled 6-year-old HEAD: Atraumatic. Normocephalic. CARDIOVASCULAR: Peripheral pulses intact no cyanosis RESPIRATORY: Speaks in full sentences GASTROINTESTINAL: Abdomen soft, non-tender, nondistended. EXTREMITIES: No edema or joint tenderness. BACK: Nontender without deformity or crepitance. No flank tenderness. NEURO: AOx3. SKIN: No rash or erythema of visible areas MDM - Anxiety ECG Data Interpretation: Sinus rhythm rate 109 RI interval 42 QRS [address] changes or T-wave inversions no priors to compare MDM Narrative Medical decision making narrative: Patient 42-year-old female history of schizophrenia presenting to the ED for evaluation. She is been here multiple times she. She knows complaining of chest pain EKGs negative. She is previously complained of chest pain and had full workups today I suspect that this is more secondary gain. Patient is medically cleared and discharged Discharge Plan Departure Patient Disposition: Home Clinical Impression: Chest pain, atypical Instructions: DI for Atypical Chest Pain Activity Restrictions/Additional Instructions: Please follow-up with pact team for your medication Follow-up with [facility] Prescriptions: No Action hydroxyzine HCl 25 mg tablet 25 mg PO QID PRN (Reason: anxiety) Qty: 30 0RF olanzapine 10 mg tablet 10 mg PO QAM olanzapine 20 mg tablet 20 mg PO BEDTIME Referrals: Francisco Lobo ARNP [Primary Care Provider] - Stand Alone Forms: Patient Portal/API
== END 2022-06-06 20:10 | disposition home or self-care (01) ==
PROVIDERS: Emergency Provider Emergency Medicine; Family Provider Family Medicine; PCP Registered Nurse Diabetes Educator
DX: R07.89 Other chest pain (principal); R53.83 Other fatigue; Z59.00 Homelessness unspecified
CPT/HCPCS: 93005; 93010; 99281; 99282

== ENCOUNTER 2022-06-07 14:07 | Emergency (ER) | payer OTHER, MEDICAID, SELFPAY ==
[2022-06-07 14:07] VITALS: BP 178/90; PULSE 110; RESP 18; TEMP 36.9; O2SAT 98
--- NOTE | 2022-06-07 15:50 | PC.NURSE ---
Pt wanted to go to the lobby to wait,she did not feel safe in her room.
--- NOTE | 2022-06-07 15:58 | CM.SWNOTE ---
LATHE OPERATOR CONTACT LENS Note Patient presents to ED via EMS due to complaint of stating she is scared. Patient presented to ED twice yesterday for similar concerns. This LATHE OPERATOR CONTACT LENS informed nut dehydrator operator and ED provider regarding community meeting yesterday with PACT team and D [facility] Med Surg Rn. Patient was seen in triage, waited in waiting area and was placed in room 1. When this LATHE OPERATOR CONTACT LENS walked past room 1 patient shouted stamping die try out worker, Academy Education Director. LATHE OPERATOR CONTACT LENS walks away to avoid stimulus for patient at this time. It was reported to this LATHE OPERATOR CONTACT LENS that patient left room to wait in lobby because she felt scared in room. LATHE OPERATOR CONTACT LENS calls Community Travel Med Surg Rn Jose Alfredo Esqueda and leaves . LATHE OPERATOR CONTACT LENS calls [facility] PACT team and speaks with Jonah. It is reported that Jonah saw on [place] that patient was present at ED and dispatched a steamblaster to meet with patient and distribute medication. Jonah reports that patient was provided medication, offered detox and crisis stabilization and patient declined. It was reported that patient asked for ride and PACT team declined because they are not able to provide transportation. It is reported that patient escalated but was re-directable and deescalated. LATHE OPERATOR CONTACT LENS informs nut dehydrator operator that patient has received daily rx for Olanzapine. Plan: Patient left room and chose to wait in lobby. Patient likely to elope or be formally discharged upon medical clearance by ED provider. Roselyn Michel, RES HABILITATION ASSISTANT
--- NOTE | 2022-06-07 16:27 | ED_ITS ---
HPI - Recheck/Abnormal Lab/Rx General Chief Complaint: Recheck/Abnormal Lab/Rx Stated Complaint: Scared Time Seen by Provider: 06/07/22 15:30 Source: patient and EMS Limitations: no limitations History of Present Illness HPI narrative: This is a 42-year-old female who presents feeling scared. Patient has known chronic schizophrenia. Patient states she is being chased feels very paranoid. Speech is slightly more pressure than normal. She does follow up with the pact team. Patient denies other issues or concerns. She does ask for Jose Alfredo barbosa [facility] paramedics comes in with her. Related Data Home Medications Medication Instructions Recorded Confirmed olanzapine 10 mg tablet 10 mg PO QAM 05/21/22 06/03/22 olanzapine 20 mg tablet 20 mg PO BEDTIME 05/21/22 06/03/22 Previous Rx's Medication Instructions Recorded hydroxyzine HCl 25 mg tablet 25 mg PO QID PRN anxiety #30 tabs 05/21/22 Allergies Allergy/AdvReac Type Severity Reaction Status Date / Time No Known Drug Allergies Allergy Verified 06/03/22 16:23 Review of Systems Review of Systems ROS Unobtainable: All systems reviewed & are unremarkable except as noted in HPI and below Patient History Medical History Drug abuse Homeless single person Methamphetamine abuse Schizophrenia Social History Smoking Status: Unknown if ever smoked Smoking Status: Unknown if ever smoked tobacco type: cigarettes alcohol intake frequency: holidays/special occasions only Substance Use Type: methamphetamine and unknown Exam Narrative Exam Narrative: GENERAL: Alert and oriented x three, disheveled female in mild distress. HEENT: Head normocephalic, atraumatic, EOMI, pupils reactive, face symmetric, moist mucous membranes NECK: Supple, full range of motion CARDIOVASCULAR: Regular rate and rhythm without murmurs, rubs or gallops. RESPIRATORY: Breath sounds equal bilaterally, no wheezes rales or rhonchi. ABDOMEN: Soft, nontender. Normoactive bowel sounds all 4 quadrants. No guarding or rebound, rigidity, no mass : No CVA tenderness EXTREMITIES: Normal range of motion, no clubbing or edema. Neurovascularly intact NEUROLOGICAL: Cranial nerves II through XII grossly intact. Moving all extremities SKIN: Warm, dry, no petechiae, no rashes or lesions. PSYCH: Patient has pressured speech, paranoia, close to her baseline although little bit more pressured than normal. Initial Vital Signs Initial Vital Signs: Vital Signs Temperature 98.4 F 06/07/22 14:07 Pulse Rate 110 H 06/07/22 14:07 Respiratory Rate 18 06/07/22 14:07 Blood Pressure 178/90 H 06/07/22 14:07 Pulse Oximetry 98 06/07/22 14:07 Oxygen Delivery Method Room Air 06/07/22 14:07 Course Orders Ordered: ED Orders 06/07/22 14:10 Consult to [facility] Concrete Laborer Stat Vital Signs Vital signs: Vital Signs - 8 hr 06/07/22 14:07 Temperature 98.4 F Pulse Rate 110 H Respiratory Rate 18 Blood Pressure 178/90 H Pulse Oximetry 98 Oxygen Delivery Method Room Air MDM - Recheck/Abnormal Lab/Rx MDM Narrative Medical decision making narrative: This is a 42-year-old female who presents with complaint of paranoia. Patient feels scared that someone chasing her. She has been here fairly frequently lately. Speech is slightly more pressured but she is lucid on examination. She seems close to her baseline but little more paranoid than typical. Unclear she is been taking her medications she has gotten medications here from the emergency department. patient is supposed to meet with her PACT team today. Discharge Plan Departure Patient Disposition: Home Clinical Impression: Chronic schizophrenia Activity Restrictions/Additional Instructions: Follow-up with your PACT team. Please follow up with your team so they can give you your medication daily. Prescriptions: No Action hydroxyzine HCl 25 mg tablet 25 mg PO QID PRN (Reason: anxiety) Qty: 30 0RF olanzapine 10 mg tablet 10 mg PO QAM olanzapine 20 mg tablet 20 mg PO BEDTIME Referrals: Francisco Lobo ARNP [Primary Care Provider] - Stand Alone Forms: Patient Portal/API
== END 2022-06-07 17:19 | disposition home or self-care (01) ==
PROVIDERS: Emergency Provider Emergency Medicine; Family Provider Family Medicine; PCP Registered Nurse Diabetes Educator
DX: F20.89 Other schizophrenia (principal)
CPT/HCPCS: 99281

== ENCOUNTER 2022-06-07 18:09 | Emergency (ER) | payer OTHER, MEDICAID, SELFPAY ==
[2022-06-07 18:12] VITALS: BP 180/100; PULSE 100; RESP 18; TEMP 36.5; O2SAT 99
--- NOTE | 2022-06-07 20:22 | PC.NURSE ---
1926-I attempted to discharge the patient after Dr Dupree saw her and medically cleared her. Pt refusing to leave waiting room. She stated You have to transfer me to another hospital if I want to. If I go out there and get lost you are in big trouble. It's not fair. 1929-Roselyn the social work lecturer spoke with the patient in the lobby. Informed pt that she has been medically cleared and is discharged. 1934-Pt refusing to leave the lobby, wanting to check back into the emergency department. 1939- Dr Dupree went to the lobby to speak to pt again,explained to her that she is medically cleared and discharged. Pt continues to refuse to leave the lobby. 1999-Police were called to trespass the patient from the lobby as she has been medically cleared and discharged and refusing to leave. When the police arrived they attempted to get her to leave and she continued to refuse to leave the lobby. She continued moving from one chair in the lobby to another. The police were able to walk her out to the vestibule and approx 10 minutes later she walked outside. The police would not trespass her and said that they would have their hyperion administrator speak to ours tomorrow
--- NOTE | 2022-06-08 05:38 | ED.RECABL ---
HPI - Recheck/Abnormal Lab/Rx General Chief Complaint: Recheck/Abnormal Lab/Rx Stated Complaint: Doesn't feel good Time Seen by Provider: 06/07/22 18:20 Source: patient Mode of arrival: Ambulatory History of Present Illness HPI narrative: 42-year-old female smoker with history of chronic schizophrenia, methamphetamine use with multiple visits to the emergency department well-known to myself and staff presents by EMS for evaluation. She states that she is scared and concerned someone is chasing her. She states that she had her medications as distributed by the pact team earlier today. She denies any suicidal or homicidal ideation. She says it has been a few days and she is used methamphetamines. Related Data Home Medications Medication Instructions Recorded Confirmed olanzapine 10 mg tablet 10 mg PO QAM 05/21/22 06/03/22 olanzapine 20 mg tablet 20 mg PO BEDTIME 05/21/22 06/03/22 Previous Rx's Medication Instructions Recorded hydroxyzine HCl 25 mg tablet 25 mg PO QID PRN anxiety #30 tabs 05/21/22 Allergies Allergy/AdvReac Type Severity Reaction Status Date / Time No Known Drug Allergies Allergy Verified 06/03/22 16:23 Review of Systems Review of Systems Narrative: GENERAL: Denies chills, fatigue, malaise, fever, sweats. HEENT: Denies sinus pain, ear pain, sore throat, difficulty swallowing, dizziness. RESPIRATORY: Denies dyspnea, cough, wheezing, hemoptysis, sputum. CARDIOVASCULAR: Denies chest pain, palpitations, orthopnea, edema, GASTROINTESTINAL: Denies nausea, vomiting, abdominal pain, diarrhea, constipation, melena. : Denies dysuria, frequency, incontinence, hematuria, urinary retention. MUSCULOSKELETAL: denies weakness, joint pain, or bony pain SKIN: Denies rash, skin lesions, or other NEUROLOGIC: Denies weakness, headache, numbness, change in speech, confusion, seizures, incoordination. PSYCHIATRIC: See HPI 12 point review of systems is negative except for those stated above Patient History Medical History Drug abuse Homeless single person Methamphetamine abuse Schizophrenia Social History Smoking Status: Unknown if ever smoked Smoking Status: Unknown if ever smoked tobacco type: cigarettes alcohol intake frequency: holidays/special occasions only Substance Use Type: does not use, methamphetamine and unknown Exam Narrative Exam Narrative: GENERAL: [42] year old patient appears stated age. Well-developed patient, in mild distress. Scared, but calm. Speaking clearly, not slurring. Walking a straight line HEAD: Atraumatic. Normocephalic. EYES: EOMI, PERLLA ENT: Nose without bleeding NECK: Trachea midline. Non tender CARDIOVASCULAR: Regular rate and rhythm without murmurs, gallops, or rubs. RESPIRATORY: Clear to auscultation. Breath sounds equal bilaterally. No wheezes, rales, or rhonchi. GASTROINTESTINAL: Abdomen soft, non-tender, nondistended. EXTREMITIES: No edema or joint tenderness. BACK: Nontender without deformity or crepitance. No flank tenderness. NEURO: AOx3. CNII-XII grossly in tact SKIN: No rash or erythema of visible areas Initial Vital Signs Initial Vital Signs: Vital Signs Temperature 97.7 F 06/07/22 18:12 Pulse Rate 100 H 06/07/22 18:12 Respiratory Rate 18 06/07/22 18:12 Blood Pressure 180/100 H 06/07/22 18:12 Pulse Oximetry 99 06/07/22 18:12 Oxygen Delivery Method Room Air 06/07/22 18:12 MDM - Recheck/Abnormal Lab/Rx MDM Narrative Medical decision making narrative: [42] year old patient presents with concerns of being scared. No SI, HI, or obvious grave disability Multiple etiologies for patient's symptoms considered including, bmedical non compliance, methamphetamine use vs. other Prior Charts reviewed in our EMR Primary Historian: patient Patient has had a medical screening exam and based on history and physical there is no evidence of emergency medical condition that would require a specific or immediate intervention Findings and discharge diagnosis discussed with patient/family followed by verbalization of understanding Return precautions discussed with patient/family whom verbalize understanding of diagnosis and plan Discharge Plan Departure Patient Disposition: Home Clinical Impression: Chronic schizophrenia Instructions: DI for Schizophrenia Activity Restrictions/Additional Instructions: You have been given a medical screening exam and thankfully today there is no evidence of an emergent medical condition that would require specific or immediate intervention. Please follow-up with your primary care team as planned. Continue to take your medications as directed and feel free to return for any concerns Prescriptions: No Action hydroxyzine HCl 25 mg tablet 25 mg PO QID PRN (Reason: anxiety) Qty: 30 0RF olanzapine 10 mg tablet 10 mg PO QAM olanzapine 20 mg tablet 20 mg PO BEDTIME Referrals: Francisco Lobo ARNP [Primary Care Provider] - Stand Alone Forms: Patient Portal/API
== END 2022-06-07 20:16 | disposition home or self-care (01) ==
PROVIDERS: Emergency Provider Emergency Medicine; Family Provider Family Medicine; PCP Registered Nurse Diabetes Educator
DX: F20.89 Other schizophrenia (principal)
CPT/HCPCS: 99281

== ENCOUNTER 2022-06-08 08:57 | Emergency (ER) | payer OTHER, MEDICAID, SELFPAY ==
--- NOTE | 2022-06-08 09:30 | ED.PSYCH ---
HPI - Psych General Chief Complaint: Recheck/Abnormal Lab/Rx Stated Complaint: scared and like someone is going to harm her Time Seen by Provider: 06/08/22 09:29 Source: patient Mode of arrival: Ambulatory Limitations: no limitations History of Present Illness HPI Narrative: This is a 42-year-old female with chronic schizophrenia and methamphetamine use who comes to emergency department for feeling scared like someone is going to harm her. Patient is known to myself she was seen yesterday. Patient follows with the PACT team and community supervisor whipped topping. Patient endorses that she feels scared she feels that someone is chasing her. She is not been physically injured. She states that she did get her medication yesterday, she does not answer when I ask where or if she is supposed to be with her pact team today. Patient denies suicidal or homicidal ideation or intent to harm herself or others. Related Data Home Medications Medication Instructions Recorded Confirmed olanzapine 10 mg tablet 10 mg PO QAM 05/21/22 06/03/22 olanzapine 20 mg tablet 20 mg PO BEDTIME 05/21/22 06/03/22 Previous Rx's Medication Instructions Recorded hydroxyzine HCl 25 mg tablet 25 mg PO QID PRN anxiety #30 tabs 05/21/22 Allergies Allergy/AdvReac Type Severity Reaction Status Date / Time No Known Drug Allergies Allergy Verified 06/03/22 16:23 Review of Systems Review of Systems ROS Unobtainable: All systems reviewed & are unremarkable except as noted in HPI and below Patient History Medical History Drug abuse Homeless single person Methamphetamine abuse Schizophrenia Social History Smoking Status: Unknown if ever smoked Smoking Status: Unknown if ever smoked tobacco type: cigarettes alcohol intake frequency: holidays/special occasions only Substance Use Type: does not use, methamphetamine and unknown Exam Narrative Exam Narrative: GENERAL: Alert and oriented, disheveled female in mild distress. HEENT: Head normocephalic, atraumatic, EOMI, pupils reactive, face symmetric, moist mucous membranes NECK: Supple, full range of motion CARDIOVASCULAR: Regular rate and rhythm without murmurs, rubs or gallops. RESPIRATORY: Breath sounds equal bilaterally, no wheezes rales or rhonchi. ABDOMEN: Soft, nontender. Normoactive bowel sounds all 4 quadrants. No guarding or rebound, rigidity, no mass : No CVA tenderness EXTREMITIES: Normal range of motion. Neurovascularly intact NEUROLOGICAL: Cranial nerves II through XII grossly intact. Normal gait. SKIN: Warm, dry PSYCH: Paranoia, external stimuli. No suicidal ideation, no homicidal ideation. Initial Vital Signs Initial Vital Signs: Vital Signs Temperature 98.4 F 06/08/22 09:46 Respiratory Rate 14 06/08/22 09:46 Blood Pressure 176/107 H 06/08/22 09:46 Oxygen Delivery Method Room Air 06/08/22 09:46 Course Orders Ordered: Discontinued Medications Ondansetron HCl (Ondansetron 4 Mg/2 Ml Inj) 4 mg IV NOW PRN PRN Reason: Nausea And Vomiting MDM - Psych MDM Narrative Medical decision making narrative: 42-year-old female presents with concerns of being scared, paranoia no suicidal ideation homicidal ideation or obvious grave disability. Patient has chronic schizophrenia likely exacerbated by chronic methamphetamine use. Patient's exam shows no emergent medical condition. Patient felt to be safe for discharge at this time. Reaching out to her pact team to make sure she has a time and place to meet to receive her medication. Discharge Plan Departure Patient Disposition: Home Clinical Impression: Chronic schizophrenic Activity Restrictions/Additional Instructions: Follow-up with your PACT team to receive your medications. Continue your medications. You may return at any time for evaluation. Prescriptions: No Action hydroxyzine HCl 25 mg tablet 25 mg PO QID PRN (Reason: anxiety) Qty: 30 0RF olanzapine 10 mg tablet 10 mg PO QAM olanzapine 20 mg tablet 20 mg PO BEDTIME Referrals: Francisco Lobo ARNP [Primary Care Provider] - Stand Alone Forms: Patient Portal/API
[2022-06-08 09:46] VITALS: BP 176/107; RESP 14; TEMP 36.9
--- NOTE | 2022-06-08 10:30 | PC.NURSE ---
[employer]TRINE MIXER attempted to reach PACT Team, voicemail left
== END 2022-06-08 10:40 | disposition home or self-care (01) ==
PROVIDERS: Emergency Provider Emergency Medicine; Family Provider Family Medicine; PCP Registered Nurse Diabetes Educator
DX: F20.89 Other schizophrenia (principal)
CPT/HCPCS: 99281

== ENCOUNTER 2022-06-08 11:30 | Emergency (ER) | payer OTHER, MEDICAID, SELFPAY ==
[2022-06-08 11:35] VITALS: BP 178/78; PULSE 98; RESP 20; TEMP 36.7; O2SAT 100
--- NOTE | 2022-06-08 14:24 | ED.PSYCH ---
HPI - Psych General Chief Complaint: Psychiatric Symptoms Stated Complaint: I don't feel safe Time Seen by Provider: 06/08/22 14:16 Source: patient Mode of arrival: Ambulatory History of Present Illness HPI Narrative: This is a 42-year-old female with chronic schizophrenia methamphetamine use who returns to the emergency department she was seen earlier this morning. She is feeling scared she feels like someone is going to harm her. She was seen earlier today by myself. She has since met with her pact team and had her daily medication today. This was also witnessed by staff here. Patient states she feels like someone was chasing her. She is requesting a cab voucher to an area here in town. She denies any suicidal or homicidal ideation intent or harmed to herself or others. Related Data Home Medications Medication Instructions Recorded Confirmed olanzapine 10 mg tablet 10 mg PO QAM 05/21/22 06/03/22 olanzapine 20 mg tablet 20 mg PO BEDTIME 05/21/22 06/03/22 Previous Rx's Medication Instructions Recorded hydroxyzine HCl 25 mg tablet 25 mg PO QID PRN anxiety #30 tabs 05/21/22 Allergies Allergy/AdvReac Type Severity Reaction Status Date / Time No Known Drug Allergies Allergy Verified 06/03/22 16:23 Review of Systems Review of Systems ROS Unobtainable: All systems reviewed & are unremarkable except as noted in HPI and below Patient History Medical History Drug abuse Homeless single person Methamphetamine abuse Schizophrenia Social History Smoking Status: Unknown if ever smoked Smoking Status: Unknown if ever smoked tobacco type: cigarettes alcohol intake frequency: holidays/special occasions only Substance Use Type: does not use, methamphetamine and unknown Exam Narrative Exam Narrative: GENERAL: Alert and oriented, disheveled female in mild distress. HEENT: Head normocephalic, atraumatic, EOMI, pupils reactive, face symmetric, moist mucous membranes NECK: Supple, full range of motion CARDIOVASCULAR: Regular rate and rhythm without murmurs, rubs or gallops. RESPIRATORY: Breath sounds equal bilaterally, no wheezes rales or rhonchi. ABDOMEN: Soft, nontender.? Normoactive bowel sounds all 4 quadrants.? No guarding or rebound, rigidity, no mass : No CVA tenderness EXTREMITIES: Normal range of motion.? Neurovascularly intact NEUROLOGICAL: Cranial nerves II through XII grossly intact.? Normal gait. SKIN: Warm, dry PSYCH:? Paranoia, external stimuli.? No suicidal ideation, no homicidal ideation. Patient's speech is clear, she does appear to have appropriate judgment. Initial Vital Signs Initial Vital Signs: Vital Signs Temperature 98.1 F 06/08/22 11:35 Pulse Rate 98 H 06/08/22 11:35 Respiratory Rate 20 06/08/22 11:35 Blood Pressure 178/78 H 06/08/22 11:35 Pulse Oximetry 100 06/08/22 11:35 Oxygen Delivery Method Room Air 06/08/22 11:35 Course Orders Ordered: ED Orders 06/08/22 11:37 Consult to ELEMENTARY SUPERVISOR - Accounts Specialist Stat Vital Signs Vital signs: Vital Signs - 8 hr 06/08/22 11:35 Temperature 98.1 F Pulse Rate 98 H Respiratory Rate 20 Blood Pressure 178/78 H Pulse Oximetry 100 Oxygen Delivery Method Room Air MDM - Psych MDM Narrative Medical decision making narrative: 42-year-old female with chronic schizophrenia and history of methamphetamine abuse represents today she still feels unsafe. She does not appear to be gravely disabled of homicidal or suicidal intent or ideation. She does appear safe for discharge. She is requesting a cab voucher. Patient did meet with her pact team here on the grounds of the hospital and did receive her medication today. She was encouraged to continue this. We did discuss that there is a care plan in place for her and at this time we will not be regularly giving her medications unless there are other new or emergent changes. Discharge Plan Departure Patient Disposition: Home Clinical Impression: Chronic schizophrenic Activity Restrictions/Additional Instructions: I am glad you saw your PAC team today and received your medication please meet with them again tomorrow. Continue medications. You may return at any time for evaluation. Prescriptions: No Action hydroxyzine HCl 25 mg tablet 25 mg PO QID PRN (Reason: anxiety) Qty: 30 0RF olanzapine 10 mg tablet 10 mg PO QAM olanzapine 20 mg tablet 20 mg PO BEDTIME Referrals: Francisco Lobo ARNP [Primary Care Provider] - Stand Alone Forms: Patient Portal/API
== END 2022-06-08 14:32 | disposition home or self-care (01) ==
PROVIDERS: Emergency Provider Emergency Medicine; Family Provider Family Medicine; PCP Registered Nurse Diabetes Educator
DX: F20.89 Other schizophrenia (principal)
CPT/HCPCS: 99281; 99283

== ENCOUNTER 2022-06-08 20:44 | Emergency (ER) | payer OTHER, MEDICAID, SELFPAY ==
[2022-06-08 21:20] VITALS: BP 184/107; PULSE 100; RESP 18; TEMP 37.1; O2SAT 100; BMI 26.6
--- NOTE | 2022-06-09 17:55 | ED.PSYCH ---
HPI - Psych General Chief Complaint: Psychiatric Symptoms Stated Complaint: chest pain vomiting sick Time Seen by Provider: 06/08/22 20:46 Source: patient Mode of arrival: Ambulatory History of Present Illness HPI Narrative: 42-year-old female smoker with history of methamphetamine use and schizophrenia as well known to myself and staff presents with the chief complaint of feeling scared that someone is chasing her. She had initially mentioned something about chest pain but quickly states that she is not having chest pain she just is scared and feels most comfortable being here. She denies any suicidal or homicidal ideation. She had her meds earlier today. She has a place to stay. She denies any nausea or vomiting. Related Data Home Medications Medication Instructions Recorded Confirmed olanzapine 10 mg tablet 10 mg PO QAM 05/21/22 06/03/22 olanzapine 20 mg tablet 20 mg PO BEDTIME 05/21/22 06/03/22 Previous Rx's Medication Instructions Recorded hydroxyzine HCl 25 mg tablet 25 mg PO QID PRN anxiety #30 tabs 05/21/22 Allergies Allergy/AdvReac Type Severity Reaction Status Date / Time No Known Drug Allergies Allergy Verified 06/03/22 16:23 Review of Systems Review of Systems Narrative: GENERAL: Denies chills, fatigue, malaise, fever, sweats. HEENT: Denies sinus pain, ear pain, sore throat, difficulty swallowing, dizziness. RESPIRATORY: Denies dyspnea, cough, wheezing, hemoptysis, sputum. CARDIOVASCULAR: Denies chest pain, palpitations, orthopnea, edema, GASTROINTESTINAL: Denies nausea, vomiting, abdominal pain, diarrhea, constipation, melena. : Denies dysuria, frequency, incontinence, hematuria, urinary retention. MUSCULOSKELETAL: denies weakness, joint pain, or bony pain SKIN: Denies rash, skin lesions, or other NEUROLOGIC: Denies weakness, headache, numbness, change in speech, confusion, seizures, incoordination. PSYCHIATRIC: See HPI 12 point review of systems is negative except for those stated above Patient History Medical History Drug abuse Homeless single person Methamphetamine abuse Schizophrenia Social History Smoking Status: Unknown if ever smoked Smoking Status: Unknown if ever smoked tobacco type: cigarettes alcohol intake frequency: holidays/special occasions only Substance Use Type: does not use, methamphetamine and unknown Exam Narrative Exam Narrative: GEN: AOx3 and in mild distress, anxious and scared EYES: Pupils are equal, round, and reactive to light and accommodation. Extraoccular muscles are intact bilaterally. There is no subconjunctival hemorrhage or exudate. CHEST: Lungs are clear to auscultation bilaterally and free of wheezes, rales, or rhonchi. Heart rate is regular rhythm, there are no murmurs, clicks, rubs, or gallops. There is no chest wall tenderness. ABD: Abdomen is soft and nontender. There is no guarding or rebound. Bowel sounds are normal in all 4 quadrants. There is no mass or organomegaly. EXT: Full painless ROM of all extremities with no loss of sensation or strength. SKIN: Warm, pink, and dry. No erythema or rash Initial Vital Signs Initial Vital Signs: Vital Signs Temperature 98.7 F 06/08/22 21:20 Pulse Rate 100 H 06/08/22 21:20 Respiratory Rate 18 06/08/22 21:20 Blood Pressure 184/107 H 06/08/22 21:20 Pulse Oximetry 100 06/08/22 21:20 Oxygen Delivery Method Room Air 06/08/22 21:20 MDM - Psych MDM Narrative Medical decision making narrative: [42] year old patient presents with paranoia Multiple etiologies for patient's symptoms considered including, but not limited to: [Mental health disorder, likely schizophrenia versus methamphetamine use versus other] Prior Charts reviewed in our EMR Primary Historian: patient Patient has had a medical screening exam and there is no evidence of a life-threatening emergency at this time. She is given return precautions and questions have been answered to her apparent satisfaction Discharge Plan Departure Patient Disposition: Home Clinical Impression: Chronic schizophrenia Instructions: DI for Schizophrenia Activity Restrictions/Additional Instructions: *You have been diagnosed with [chronic schizophrenia] *What to do: *Please continue to take your regular medications as directed. *Please follow up with your primary care provider in 2-3 days, call for an appointment. Let them know you were seen in the Emergency Department and that we ask that you be seen in follow up. We will electronically transmit a record of today's note if your PCP is in our system *If you do not have a primary care provider please contact the [facility] Resource line at [phone]. They will ask some questions about your medical history and help get you set up with a doctor in the community. * please do everything in your power to follow the follow-up recommendations and care plan as directed by the PACT Team You may return to the emergency department for significant new concerns Prescriptions: No Action hydroxyzine HCl 25 mg tablet 25 mg PO QID PRN (Reason: anxiety) Qty: 30 0RF olanzapine 10 mg tablet 10 mg PO QAM olanzapine 20 mg tablet 20 mg PO BEDTIME Referrals: Francisco Lobo ARNP [Primary Care Provider] - Stand Alone Forms: Patient Portal/API
== END 2022-06-08 21:38 | disposition home or self-care (01) ==
PROVIDERS: Emergency Provider Emergency Medicine; Family Provider Family Medicine; PCP Registered Nurse Diabetes Educator
DX: F20.89 Other schizophrenia (principal)
CPT/HCPCS: 99283

== ENCOUNTER 2022-06-09 14:01 | Emergency (ER) | payer OTHER, MEDICAID, SELFPAY ==
[2022-06-09 14:13] VITALS: BP 154/89; PULSE 110; RESP 16; TEMP 36.7; O2SAT 99; BMI 26.6
--- NOTE | 2022-06-09 14:17 | ED.GENADULT ---
HPI - General Adult General Stated complaint: Thinks someone is chasing her Time Seen by Provider: 06/09/22 14:17 History of Present Illness HPI narrative: This patient is well known to the staff here at the ER. She comes to the ER today saying that she needs a cab voucher to get back to her hotel. She says someone is chasing her and she is afraid for her life. She says she needs her daily medication. She has no complaint of fever, cough, vomiting, diarrhea, chest pain, abdominal pain. Patient denies recent methamphetamine use. Related Data Home Medications Medication Instructions Recorded Confirmed olanzapine 10 mg tablet 10 mg PO QAM 05/21/22 06/03/22 olanzapine 20 mg tablet 20 mg PO BEDTIME 05/21/22 06/03/22 Previous Rx's Medication Instructions Recorded hydroxyzine HCl 25 mg tablet 25 mg PO QID PRN anxiety #30 tabs 05/21/22 Allergies Allergy/AdvReac Type Severity Reaction Status Date / Time No Known Drug Allergies Allergy Verified 06/03/22 16:23 Patient History Medical History Drug abuse Homeless single person Methamphetamine abuse Schizophrenia Social History Smoking Status: Unknown if ever smoked Smoking Status: Unknown if ever smoked tobacco type: cigarettes alcohol intake frequency: holidays/special occasions only Substance Use Type: does not use, methamphetamine and unknown Exam Narrative Exam Narrative: GENERAL: Alert, cooperative and in no distress. HEAD: Atraumatic. Normocephalic. EYES: Sclera are clear without icterus. Extraocular movements are full. ENT: No rhinorrhea. Oropharynx is moist. Mouth exam is benign. NECK: Supple. Full range of motion. CARDIOVASCULAR: Normal rate and rhythm without murmur gallop or rub. RESPIRATORY: Clear to auscultation. Breath sounds equal bilaterally. No wheezes, rales, or rhonchi. GASTROINTESTINAL: Abdomen soft, non-tender, nondistended. EXTREMITIES: No edema, full range of motion. No obvious trauma. BACK: Normal inspection, no CVA tenderness. NEURO: Nonfocal examination, normal speech, normal gait. SKIN: No rash or erythema of visible areas PSYCH: Normally oriented. Normal range of affect. Appropriate behavior Course Course Course Narrative: Following the protocol established for this patient I do not identify an acute medical condition requiring further evaluation in the ER. Her heart rate is 110 beats per minute but I attribute this to her anxiety. Is regular rhythm. She has no chest pain. We will not be providing her with a taxi voucher or a bus voucher or any other assistance as this seems to be counterproductive given her frequent ER visits. We did put her in touch with her pact team to try to access support from them. I encouraged to contact police if she feels she is in danger from any specific individual. Discharge Plan Departure Patient Disposition: Home Clinical Impression: Acute paranoia Activity Restrictions/Additional Instructions: No emergent medical condition is identified today. I recommend you follow-up with the pact team for assistance in getting her medications. If you are concerned about someone putting you in danger, you should call the police. Prescriptions: No Action hydroxyzine HCl 25 mg tablet 25 mg PO QID PRN (Reason: anxiety) Qty: 30 0RF olanzapine 10 mg tablet 10 mg PO QAM olanzapine 20 mg tablet 20 mg PO BEDTIME Referrals: Francisco Lobo ARNP [Primary Care Provider] - Stand Alone Forms: Patient Portal/API
--- NOTE | 2022-06-09 14:33 | PC.NURSE ---
I called the PACT team and left a message. no on was able to be reached. Claire reports that she has not had her medications today and asked me to call the PACT team for her. Provider and charge aware.
--- NOTE | 2022-06-09 17:10 | PC.NURSE ---
1530: [facility] in waiting area meeting with Juanito. [facility] advised Jamila [facility] that her meds were given. When RN out to do follow up pt was not seen in waiting area.
== END 2022-06-09 15:30 | disposition home or self-care (01) ==
PROVIDERS: Emergency Provider Family Medicine Addiction Medicine; Family Provider Family Medicine; PCP Registered Nurse Diabetes Educator
DX: F22 Delusional disorders (principal)
CPT/HCPCS: 99281; 99283

== ENCOUNTER 2022-06-10 15:36 | Emergency (ER) | payer OTHER, MEDICAID, SELFPAY ==
--- NOTE | 2022-06-10 15:51 | ED_ITS ---
HPI - General Adult General Chief complaint: Anxiety Stated complaint: scared Time Seen by Provider: 06/10/22 15:45 Source: patient and EMS Mode of arrival: EMS History of Present Illness HPI narrative: 42-year-old female. Well known to myself. Arrives by EMS for evaluation of being scared. She was pounding on the door of a local business. Per report she was supposed to have met with her PACT team earlier today but missed that appoi ntment. Apparently there was an attempt prior to arrival to contact the team but unable to. Here the patient states she just does not feel good and feel scared. She can not be more specific than that Related Data Home Medications Medication Instructions Recorded Confirmed olanzapine 10 mg tablet 10 mg PO QAM 05/21/22 06/03/22 olanzapine 20 mg tablet 20 mg PO BEDTIME 05/21/22 06/03/22 Previous Rx's Medication Instructions Recorded hydroxyzine HCl 25 mg tablet 25 mg PO QID PRN anxiety #30 tabs 05/21/22 Allergies Allergy/AdvReac Type Severity Reaction Status Date / Time No Known Drug Allergies Allergy Verified 06/10/22 15:55 Review of Systems Psychiatric Psychiatric: Reports system reviewed and no additional complaints, except as documented Patient History Medical History Drug abuse Homeless single person Methamphetamine abuse Schizophrenia Social History Smoking Status: Unknown if ever smoked Smoking Status: Unknown if ever smoked tobacco type: cigarettes alcohol intake frequency: holidays/special occasions only Substance Use Type: does not use, methamphetamine and unknown Exam Initial Vital Signs Initial Vital Signs: Vital Signs Temperature 98.6 F 06/10/22 15:53 Pulse Rate 110 H 06/10/22 15:53 Respiratory Rate 20 06/10/22 15:53 Blood Pressure 157/78 H 06/10/22 15:53 Pulse Oximetry 100 06/10/22 15:53 Oxygen Delivery Method Room Air 06/10/22 15:53 Neuro Other: Cooperative and awake Psych Other: Disheveled, does answer questions, feel scared Course Vital Signs Vital signs: Vital Signs - 8 hr 06/10/22 15:53 Temperature 98.6 F Pulse Rate 110 H Respiratory Rate 20 Blood Pressure 157/78 H Pulse Oximetry 100 Oxygen Delivery Method Room Air Medical Decision Making MDM Narrative Medical decision making narrative: A medical screening scan was performed. Patient presents at her baseline. We were able to contact the PACT team who stated that the patient can be discharged if she is medically cleared. Patient has medically cleared. Discharge Plan Departure Patient Disposition: Home Clinical Impression: Chronic schizophrenia Instructions: DI for Schizophrenia Activity Restrictions/Additional Instructions: Follow-up with your support care team Prescriptions: No Action hydroxyzine HCl 25 mg tablet 25 mg PO QID PRN (Reason: anxiety) Qty: 30 0RF olanzapine 10 mg tablet 10 mg PO QAM olanzapine 20 mg tablet 20 mg PO BEDTIME Referrals: Francisco Lobo ARNP [Primary Care Provider] - Stand Alone Forms: Patient Portal/API
[2022-06-10 15:53] VITALS: BP 157/78; PULSE 110; RESP 20; TEMP 37; O2SAT 100
--- NOTE | 2022-06-10 17:01 | PC.NURSE ---
Pt discharged and then used phone in lobby to call 911 for ambulance to [facility] [facility] because she did not feel safe. Did not respond to my verbal request to leave. [facility] officer arrived and took over.
== END 2022-06-10 16:20 | disposition home or self-care (01) ==
PROVIDERS: Emergency Provider Emergency Medicine; Family Provider Family Medicine; PCP Registered Nurse Diabetes Educator
DX: F20.89 Other schizophrenia (principal)
CPT/HCPCS: 99281

== ENCOUNTER 2022-06-10 18:26 | Emergency (ER) | payer OTHER, MEDICAID, SELFPAY ==
[2022-06-10 18:33] VITALS: BP 155/87; PULSE 111; RESP 18; TEMP 36.6; O2SAT 99
--- NOTE | 2022-06-10 18:39 | ED.MEDCLEAR ---
HPI - Medical Clearance General Chief complaint: Anxiety Stated complaint: Scared Time Seen by Provider: 06/10/22 18:48 History of Present Illness HPI Narrative: Patient 42-year-old female chronic schizophrenia presenting today for the 2nd time today for being scared. She reports that she feels someone is chasing her. She was here 2 hours ago went to a hotel and quickly came back. She is requesting for a place to stay. There is a community plan in place for her we are no longer able to give her medication or allow her to stay the night. Related Information Home Medications Medication Instructions Recorded Confirmed olanzapine 10 mg tablet 10 mg PO QAM 05/21/22 06/03/22 olanzapine 20 mg tablet 20 mg PO BEDTIME 05/21/22 06/03/22 Previous Rx's Medication Instructions Recorded hydroxyzine HCl 25 mg tablet 25 mg PO QID PRN anxiety #30 tabs 05/21/22 permethrin 5 % topical cream 1 applic topical Q14D 2 doses #60 06/11/22 grams Allergies Allergy/AdvReac Type Severity Reaction Status Date / Time No Known Drug Allergies Allergy Verified 06/10/22 15:55 Review of Systems Review of Systems ROS Unobtainable: All systems reviewed & are unremarkable except as noted in HPI and below Patient History Medical History Drug abuse Homeless single person Methamphetamine abuse Schizophrenia Social History Smoking Status: Unknown if ever smoked Smoking Status: Unknown if ever smoked tobacco type: cigarettes alcohol intake frequency: holidays/special occasions only Substance Use Type: does not use, methamphetamine and unknown Exam Initial Vital Signs Initial Vital Signs: Vital Signs Temperature 98 F 06/10/22 18:33 Pulse Rate 111 H 06/10/22 18:33 Respiratory Rate 18 06/10/22 18:33 Blood Pressure 155/87 H 06/10/22 18:33 Pulse Oximetry 99 06/10/22 18:33 Oxygen Delivery Method Room Air 06/10/22 18:33 GENERAL: Alert disheveled in her normal state of health CARDIOVASCULAR: peripheral pulses in tact, cap refill <2 sec RESPIRATORY: No respiratory distress, speaks in full sentences without difficulty EXTREMITIES: Normal range of motion, no clubbing or edema. Neurovascularly intact NEUROLOGICAL: Cranial nerves II through XII grossly intact. Normal gait and speech. SKIN: Warm, dry, no petechiae, no rashes or lesions. MDM - Medical Clearance MDM Narrative Medical decision making narrative: Claire is here at least twice a day. A community plan has been put in place for her. She continues to feel frightened and afraid to be alone. The pact team gives her her medicines, unclear if she got it today. She then is refusing to leave. She was previously sent to the community [facility]. Police have been called. At this time there is no emergency this is her normal complaint. She is really requesting that she stayed at night. Discharge Plan Departure Patient Disposition: Home Clinical Impression: Chronic schizophrenia Activity Restrictions/Additional Instructions: No emergent medical condition is identified today.? I recommend you follow-up with the pact team for assistance in getting her medications.? If you are concerned about someone putting you in danger, you should call the police. Prescriptions: No Action hydroxyzine HCl 25 mg tablet 25 mg PO QID PRN (Reason: anxiety) Qty: 30 0RF olanzapine 10 mg tablet 10 mg PO QAM olanzapine 20 mg tablet 20 mg PO BEDTIME permethrin 5 % cream 1 applic topical Q14D Qty: 60 0RF Rx Instructions: apply second treatment 14 days after first treatment if live lice remain Referrals: Francisco Lobo ARNP [Primary Care Provider] - Stand Alone Forms: Patient Portal/API
--- NOTE | 2022-06-10 18:47 | PC.NURSE ---
Pt seen by provider and discharged. Became belligerent when asked to leave. Yelling at this nurse and security engineer. Refused to leave when asked. Denies SI/HI. States she does not feel safe. Discussed w/ Dr. Watkins who again states she is discharged and has no medical needs. [employer] called @ 1845 for assistance in removing from waiting room.
--- NOTE | 2022-06-10 18:50 | PC.NURSE ---
Patient escalating, yelling at staff in lobby.
--- NOTE | 2022-06-10 18:53 | PC.NURSE ---
[employer] arrived and walked w/ Claire out of Emergency Department.
== END 2022-06-10 18:53 | disposition home or self-care (01) ==
PROVIDERS: Emergency Provider Emergency Medicine; Family Provider Family Medicine; PCP Registered Nurse Diabetes Educator
DX: F20.89 Other schizophrenia (principal)
CPT/HCPCS: 99281

== ENCOUNTER 2022-06-10 21:21 | Emergency (ER) | payer OTHER, MEDICAID, SELFPAY ==
--- NOTE | 2022-06-11 00:59 | ED.PSYCH ---
HPI - Psych General Chief Complaint: Psychiatric Symptoms Stated Complaint: Scared Time Seen by Provider: 06/11/22 00:53 History of Present Illness HPI Narrative: 42-year-old chronic schizophrenic methamphetamine presents for the 3rd time today for being scared and paranoid. She reports that she did not get her medication today. She is aware of the plan that she is not to stay in the hospital she received a medical screening exam she came by EMS. She does have some sort of fleas. Related Data Home Medications Medication Instructions Recorded Confirmed olanzapine 10 mg tablet 10 mg PO QAM 05/21/22 06/03/22 olanzapine 20 mg tablet 20 mg PO BEDTIME 05/21/22 06/03/22 Previous Rx's Medication Instructions Recorded hydroxyzine HCl 25 mg tablet 25 mg PO QID PRN anxiety #30 tabs 05/21/22 permethrin 5 % topical cream 1 applic topical Q14D 2 doses #60 06/11/22 grams Allergies Allergy/AdvReac Type Severity Reaction Status Date / Time No Known Drug Allergies Allergy Verified 06/10/22 15:55 Patient History Medical History Drug abuse Homeless single person Methamphetamine abuse Schizophrenia Social History Smoking Status: Unknown if ever smoked Smoking Status: Unknown if ever smoked tobacco type: cigarettes alcohol intake frequency: holidays/special occasions only Substance Use Type: does not use, methamphetamine and unknown Exam Initial Vital Signs Initial Vital Signs: Vital Signs Pulse Rate 69 06/11/22 01:00 Respiratory Rate 18 06/11/22 01:00 Blood Pressure 142/90 H 06/11/22 01:00 Pulse Oximetry 99 06/11/22 01:00 Oxygen Delivery Method Room Air 06/11/22 01:00 GENERAL:? Alert disheveled in her normal state of health CARDIOVASCULAR: peripheral pulses in tact, cap refill <2 sec RESPIRATORY: No respiratory distress,? speaks in full sentences without difficulty EXTREMITIES: Normal range of motion, no clubbing or edema.? Neurovascularly intact NEUROLOGICAL: Cranial nerves II through XII grossly intact.? Normal gait and speech. SKIN: Warm, dry, no petechiae, no rashes or lesions. Course Orders Ordered: Discontinued Medications Olanzapine (Olanzapine Odt 10 Mg Tab) 10 mg PO NOW ONE Stop: 06/11/22 01:00 Last Admin: 06/11/22 01:11 Dose: 10 mg Documented By: ADA Vital Signs Vital signs: Vital Signs - 8 hr 06/11/22 01:00 Pulse Rate 69 Respiratory Rate 18 Blood Pressure 142/90 H Pulse Oximetry 99 Oxygen Delivery Method Room Air MDM - Psych MDM Narrative Medical decision making narrative: Patient with chronic schizophrenia paranoia presents today for the 3rd. She reports not getting her medicine. The Community plan is that we are not take group home her or give her medication however sore 3rd visit today. Have explained to her that I will give her her Zyprexa but she is not allowed to stay in the emergency department or in the waiting room. Multiple nurses report that she has some sort of bug probably lice. She is given medication for this, she states she will pick it up. I have explained to her that he said there new rules and this is the plan she understands. She is not harming herself or others. She is not requiring any further workup or evaluation today. This is her chronic complaint she is in her normal state of health. Discharge Plan Departure Patient Disposition: Home Clinical Impression: Chronic schizophrenia, Body lice Instructions: DI for Head Lice Activity Restrictions/Additional Instructions: No emergent medical condition is identified today.? I recommend you follow-up with the pact team for assistance in getting her medications.? If you are concerned about someone putting you in danger, you should call the police. Permethrin cream for lice--> sent to [facility] take as directed Prescriptions: New permethrin 5 % cream 1 applic topical Q14D Qty: 60 0RF Rx Instructions: apply second treatment 14 days after first treatment if live lice remain No Action hydroxyzine HCl 25 mg tablet 25 mg PO QID PRN (Reason: anxiety) Qty: 30 0RF olanzapine 10 mg tablet 10 mg PO QAM olanzapine 20 mg tablet 20 mg PO BEDTIME Referrals: Francisco Lobo ARNP [Primary Care Provider] - Stand Alone Forms: Patient Portal/API
[2022-06-11 01:00] VITALS: BP 142/90; PULSE 69; RESP 18; O2SAT 99
[2022-06-11] MEDS: OLANZapine ODT 10 MG TAB PO (01:11)
== END 2022-06-11 01:16 | disposition home or self-care (01) ==
PROVIDERS: Emergency Provider Emergency Medicine; Family Provider Family Medicine; PCP Registered Nurse Diabetes Educator
DX: F20.89 Other schizophrenia (principal); B85.1 Pediculosis due to Pediculus humanus corporis
CPT/HCPCS: 99281; 99283

== ENCOUNTER 2022-06-11 06:32 | Emergency (ER) | payer OTHER, MEDICAID, SELFPAY ==
--- NOTE | 2022-06-11 06:52 | ED.PSYCH ---
HPI - Psych General Stated Complaint: doesn't feel good/stomach aches/hot cold flashes Time Seen by Provider: 06/11/22 06:52 History of Present Illness HPI Narrative: The patient 42-year-old female here for the 3rd time during my shift 4th time in 24 hours, presenting with the same. Feeling scared not feeling well. Last night I did give her 1 dose of Zyprexa. Today she reports that she still is wanting a place to stay. She does not want to be hospitalized she just wants a room for awhile. I have explained to her that we are not hotel. She needs to get her medicine elsewhere. She reports that she does have a place to stay a hotel and friends intermittently. She tries to eat when she can. Related Data Home Medications Medication Instructions Recorded Confirmed olanzapine 10 mg tablet 10 mg PO QAM 05/21/22 06/03/22 olanzapine 20 mg tablet 20 mg PO BEDTIME 05/21/22 06/03/22 Previous Rx's Medication Instructions Recorded hydroxyzine HCl 25 mg tablet 25 mg PO QID PRN anxiety #30 tabs 05/21/22 permethrin 5 % topical cream 1 applic topical Q14D 2 doses #60 06/11/22 grams Allergies Allergy/AdvReac Type Severity Reaction Status Date / Time No Known Drug Allergies Allergy Verified 06/10/22 15:55 Review of Systems Review of Systems ROS Unobtainable: All systems reviewed & are unremarkable except as noted in HPI and below Patient History Medical History Drug abuse Homeless single person Methamphetamine abuse Schizophrenia Social History Smoking Status: Unknown if ever smoked Smoking Status: Unknown if ever smoked tobacco type: cigarettes alcohol intake frequency: holidays/special occasions only Substance Use Type: does not use, methamphetamine and unknown Exam Initial Vital Signs Initial Vital Signs: GENERAL: Alert disheveled 42-year-old female CARDIOVASCULAR: peripheral pulses in tact, cap refill <2 sec RESPIRATORY: No respiratory distress, speaks in full sentences without difficulty EXTREMITIES: Normal range of motion, no clubbing or edema. Neurovascularly intact NEUROLOGICAL: Cranial nerves II through XII grossly intact. Normal gait and speech. SKIN: Warm, dry, no petechiae, no rashes or lesions. Lice and bugs noted on hair MDM - Psych MDM Narrative Medical decision making narrative: Patient has a community plan in place since the community plan has been in place she is actually had more frequent visits to the emergency department. She did receive 1 dose of Zyprexa for myself last night. Today encourage her to call the pact team. If they decide that she needs further evaluation and possible hospitalization your happy to help. She is given their phone number and a phone to call. At this time she continues to have similar complaints she also reports some nausea but no vomiting. Discharge Plan Departure Patient Disposition: Home Clinical Impression: Chronic schizophrenia Activity Restrictions/Additional Instructions: Call the pact team [phone] If they determine that you need further evaluation or hospitalization we are happy to help No emergent medical condition is identified today.? I recommend you follow-up with the pact team for assistance in getting her medications.? If you are concerned about someone putting you in danger, you should call the police. Prescriptions: No Action hydroxyzine HCl 25 mg tablet 25 mg PO QID PRN (Reason: anxiety) Qty: 30 0RF olanzapine 10 mg tablet 10 mg PO QAM olanzapine 20 mg tablet 20 mg PO BEDTIME permethrin 5 % cream 1 applic topical Q14D Qty: 60 0RF Rx Instructions: apply second treatment 14 days after first treatment if live lice remain Referrals: Francisco Lobo ARNP [Primary Care Provider] - Stand Alone Forms: Patient Portal/API
[2022-06-11 06:55] VITALS: BP 180/90; PULSE 95; RESP 18; TEMP 36.6; O2SAT 96
== END 2022-06-11 07:00 | disposition home or self-care (01) ==
PROVIDERS: Emergency Provider Emergency Medicine; Family Provider Family Medicine; PCP Registered Nurse Diabetes Educator
DX: F20.89 Other schizophrenia (principal)
CPT/HCPCS: 99281

== ENCOUNTER 2022-06-11 07:27 | Emergency (ER) | payer OTHER, MEDICAID, SELFPAY ==
--- NOTE | 2022-06-11 07:32 | ED.GENADULT ---
HPI - General Adult General Chief complaint: Psychiatric Symptoms Stated complaint: scared Time Seen by Provider: 06/11/22 07:30 Source: patient Mode of arrival: Ambulatory History of Present Illness HPI narrative: 42-year-old female who arrives once again for feeling scared. This is her 5th visit in the past 24 hours. She is well-known to myself in this department. There is a interdisciplinary care plan put forth by the [facility] PACT team in the [facility] Department in the emergency department in the [facility] potline monitor regarding Claire. She arrives today stating that she ?feels scared she states she feels like someone is chasing her. She did not try to contact the PACT team. She states ?I feel like something is wrong? but can not give specifics. This is very much like prior visits to the emergency department Related Data Home Medications Medication Instructions Recorded Confirmed olanzapine 10 mg tablet 10 mg PO QAM 05/21/22 06/03/22 olanzapine 20 mg tablet 20 mg PO BEDTIME 05/21/22 06/03/22 Previous Rx's Medication Instructions Recorded hydroxyzine HCl 25 mg tablet 25 mg PO QID PRN anxiety #30 tabs 05/21/22 permethrin 5 % topical cream 1 applic topical Q14D 2 doses #60 06/11/22 grams Allergies Allergy/AdvReac Type Severity Reaction Status Date / Time No Known Drug Allergies Allergy Verified 06/11/22 07:09 Review of Systems Psychiatric Psychiatric: Reports system reviewed and no additional complaints, except as documented Patient History Medical History Drug abuse Homeless single person Methamphetamine abuse Schizophrenia Social History Smoking Status: Unknown if ever smoked Smoking Status: Unknown if ever smoked tobacco type: cigarettes alcohol intake frequency: holidays/special occasions only Substance Use Type: does not use, methamphetamine and unknown Exam Initial Vital Signs Initial Vital Signs: Vital Signs Temperature 98.0 F 06/11/22 07:38 Pulse Rate 74 06/11/22 07:38 Respiratory Rate 16 06/11/22 07:38 Blood Pressure 156/90 H 06/11/22 07:38 Pulse Oximetry 97 06/11/22 07:38 Oxygen Delivery Method Room Air 06/11/22 07:38 Const General: other (Disheveled) Psych Other: Somewhat calm cooperative Course Vital Signs Vital signs: Vital Signs - 8 hr 06/11/22 07:38 Temperature 98.0 F Pulse Rate 74 Respiratory Rate 16 Blood Pressure 156/90 H Pulse Oximetry 97 Oxygen Delivery Method Room Air Medical Decision Making MDM Narrative Medical decision making narrative: Patient did have medical screening exam. Informed the patient that unfortunately there is not more that we can do for here in the emergency department. There is no signs of trauma. She is at her baseline mental status per my multiple visits with her in the past. She is well hydrated. She does not have any specific complaints. She states that she just does not feel safe. She states that she is just going to keep coming back to the emergency department. We did attempt to contact the PACT team however there was no answer. Will discharge patient. She did become somewhat upset about this. I have a strong feeling that she will come back multiple times today. Discharge Plan Departure Patient Disposition: Home Clinical Impression: Chronic schizophrenia Instructions: DI for Schizophrenia Prescriptions: No Action hydroxyzine HCl 25 mg tablet 25 mg PO QID PRN (Reason: anxiety) Qty: 30 0RF olanzapine 10 mg tablet 10 mg PO QAM olanzapine 20 mg tablet 20 mg PO BEDTIME permethrin 5 % cream 1 applic topical Q14D Qty: 60 0RF Rx Instructions: apply second treatment 14 days after first treatment if live lice remain Referrals: Francisco Lobo ARNP [Primary Care Provider] - Stand Alone Forms: Patient Portal/API
[2022-06-11 07:38] VITALS: BP 156/90; PULSE 74; RESP 16; TEMP 36.7; O2SAT 97; BMI 29.0
--- NOTE | 2022-06-11 07:42 | PC.NURSE ---
alert and oriented. states she does not feel safe and she feels scared. Pt has been here multiple times in the last 48 hrs. PACT team called this morning at 0700 without answer. Advised pt to call at 0800. Pt advised of the meeting with interdisciplinary team. Pt is aware that PACT team will be providing her medications. Dr Capps at spoke with pt at length about her plan of care.
== END 2022-06-11 07:44 | disposition home or self-care (01) ==
LOC: ED 07:33
PROVIDERS: Emergency Provider Emergency Medicine; Family Provider Family Medicine; PCP Registered Nurse Diabetes Educator
DX: F20.89 Other schizophrenia (principal)
CPT/HCPCS: 99283

== ENCOUNTER 2022-06-11 08:03 | Emergency (ER) | payer OTHER, MEDICAID, SELFPAY ==
[2022-06-11 08:16] VITALS: BMI 29.0
--- NOTE | 2022-06-11 08:59 | ED.PSYCH ---
HPI - Psych General Chief Complaint: Psychiatric Symptoms Stated Complaint: scared Time Seen by Provider: 06/11/22 08:04 Source: patient Mode of arrival: Ambulatory History of Present Illness HPI Narrative: 42-year-old female. This is greater than 5 times she is been here in the emergency department in the past 24 hours with the same complaint of feeling scared, feeling like someone was chasing her and generally not feeling very well. This is the 2nd time that I have seen her in the past who hours. She is at her baseline mental status per my prior visits with her and baseline level of disheveled. Related Data Home Medications Medication Instructions Recorded Confirmed olanzapine 10 mg tablet 10 mg PO QAM 05/21/22 06/03/22 olanzapine 20 mg tablet 20 mg PO BEDTIME 05/21/22 06/03/22 Previous Rx's Medication Instructions Recorded hydroxyzine HCl 25 mg tablet 25 mg PO QID PRN anxiety #30 tabs 05/21/22 permethrin 5 % topical cream 1 applic topical Q14D 2 doses #60 06/11/22 grams Allergies Allergy/AdvReac Type Severity Reaction Status Date / Time No Known Drug Allergies Allergy Verified 06/11/22 07:09 Review of Systems Psychiatric Psychiatric: Reports system reviewed and no additional complaints, except as documented Patient History Medical History Drug abuse Homeless single person Methamphetamine abuse Schizophrenia Social History Smoking Status: Unknown if ever smoked Smoking Status: Unknown if ever smoked tobacco type: cigarettes alcohol intake frequency: holidays/special occasions only Substance Use Type: does not use, methamphetamine and unknown Exam Neuro General: patient alert, patient awake and moves all extremities Extrem General: normal to inspection Psych Speech and Movement: speech and movement normal Other: Disheveled, paranoid, Discharge Plan Departure Patient Disposition: Home Clinical Impression: Chronic schizophrenia Prescriptions: No Action hydroxyzine HCl 25 mg tablet 25 mg PO QID PRN (Reason: anxiety) Qty: 30 0RF olanzapine 10 mg tablet 10 mg PO QAM olanzapine 20 mg tablet 20 mg PO BEDTIME permethrin 5 % cream 1 applic topical Q14D Qty: 60 0RF Rx Instructions: apply second treatment 14 days after first treatment if live lice remain Referrals: Yamil,Francisco, DRILL OPERATOR [Primary Care Provider] - Stand Alone Forms: Patient Portal/API
--- NOTE | 2022-06-11 10:01 | PC.NURSE ---
Dr Capps spoke to DCR. See MD note for further information
== END 2022-06-11 09:45 | disposition left against medical advice (07) ==
PROVIDERS: Emergency Provider Emergency Medicine; Family Provider Family Medicine; PCP Registered Nurse Diabetes Educator
DX: F99 Mental disorder, not otherwise specified (principal)
CPT/HCPCS: 99281

== ENCOUNTER 2022-06-13 09:28 | Emergency (ER) | payer OTHER, MEDICAID, SELFPAY ==
[2022-06-13 09:36] VITALS: TEMP 36.6
--- NOTE | 2022-06-13 09:43 | PC.NURSE ---
Pt yelling in lobby I'm leaving,don't talk to me. This isn't fair. Pt walking away from ED entrance.
== END 2022-06-13 09:45 | disposition left against medical advice (07) ==
PROVIDERS: Emergency Provider Emergency Medicine; Family Provider Family Medicine; PCP Registered Nurse Diabetes Educator
CPT/HCPCS: 99281

== ENCOUNTER 2022-06-16 01:33 | Emergency (ER) | payer OTHER, MEDICAID, SELFPAY ==
--- NOTE | 2022-06-16 01:39 | ED_ITS ---
HPI - General Adult General Chief complaint: Anxiety Stated complaint: not feeling well. puking? Time Seen by Provider: 06/16/22 01:35 History of Present Illness HPI narrative: 42-year-old woman with Schizophrenia and established PAC team presents the medics complaining of nausea and vomiting. She has a history of paranoid schizophrenia and well over 130 visits to emergency department's within the last 12 months. She states that she is nauseated and was vomiting all day without any evidence to actually suggest this. She is well hydrated. Actually on initial exam she seems less physically disheveled and more focused and making eye contact than I have seen her previously. She is not complaining of fever, headache, diarrhea, cough or chest pain. Related Data Home Medications Medication Instructions Recorded Confirmed olanzapine 10 mg tablet 10 mg PO QAM 05/21/22 06/03/22 olanzapine 20 mg tablet 20 mg PO BEDTIME 05/21/22 06/03/22 Previous Rx's Medication Instructions Recorded hydroxyzine HCl 25 mg tablet 25 mg PO QID PRN anxiety #30 tabs 05/21/22 permethrin 5 % topical cream 1 applic topical Q14D 2 doses #60 06/11/22 grams Allergies Allergy/AdvReac Type Severity Reaction Status Date / Time No Known Drug Allergies Allergy Verified 06/11/22 07:09 Patient History Medical History Drug abuse Homeless single person Methamphetamine abuse Schizophrenia Social History Smoking Status: Unknown if ever smoked Smoking Status: Unknown if ever smoked tobacco type: cigarettes alcohol intake frequency: holidays/special occasions only Substance Use Type: methamphetamine and unknown Exam Initial Vital Signs Initial Vital Signs: General: disheveled and physically dirty yet a bit more clean than is typical for her HEENT: Moist mucous membranes, normal sclera with reactive pupils, Respiratory: Lungs are clear to auscultation, no wheezing no rales no rhonchi. Full and symmetrical air movement Cardiac: Regular rate and rhythm no murmurs no bruits Abdomen: Soft, nontender, good bowel tones, no flank pain Extremities: physically dirty but no obvious trauma Psych: . Quiet voice, fluency is appropriate no response to internal stimuli does not appear acutely psychotic Course Orders Ordered: Discontinued Medications Ondansetron HCl (Ondansetron 4 Mg Odt) 4 mg SL NOW ONE Stop: 06/16/22 01:39 Medical Decision Making MDM Narrative Medical decision making narrative: CC: Nausea and vomiting was initial complaint than feeling unsafe and wanting to spend the night in the hospital as a secondary complaint Complicating co-morbidities: schizophrenia Corroborating data: Data collected from: patient, medics Social determinants of health that may influence the patients condition: significant social disarray, unstable housing situation Medical records reviewed: multiple ER notes from [facility]. Prior psychiatric notes Differential considered: an inpatient notes reviewed acute psychosis, chronic schizophrenia, malingering, viral syndrome, Exam documented above, pertinent findings include: absence of dehydration or abdominal pain. She is not acutely psychotic Discussion: the inter disciplinary care plan last updated June 06 for this patient was followed. She was evaluated by me in the triage room. There is no evidence of nausea or vomiting. Explain to her that we could give her Zofran she desired but she would need to leave. At that point she stated that she simply wantedTo stay in the department and I politely told her that that was not going to be an option. She was discharged from triage. Back in the waiting room, behavior continued to escalate. Kike guevara was called. She was escorted off the premises but continued to pound on the doors with hands and fists. Came back into the waiting room screaming and shouting. She was re-evaluated by me and again felt to be medically stable with a anger outbursts. Because of the continued yelling and attempts to damaged property, police were called and she was arrested, presumably for trespassing. PAC Team was notified as was department administration. Discharge Plan Departure Patient Disposition: Home Clinical Impression: Nausea & vomiting Qualifiers: Vomiting type: unspecified Qualified Code(s): R11.2 - Nausea with vomiting, unspecified Instructions: DI for Nausea -- Adult Activity Restrictions/Additional Instructions: I am sorry that you are not feeling well today I have given you dose of Zofran to help with the nausea. I understand that you would like to spend the night here however that is not an option open to you tonight. I encourage you to follow-up with your pact team and continue to work on options for housing where you feel safe that does not require repeat visits to the emergency department Prescriptions: No Action hydroxyzine HCl 25 mg tablet 25 mg PO QID PRN (Reason: anxiety) Qty: 30 0RF olanzapine 10 mg tablet 10 mg PO QAM olanzapine 20 mg tablet 20 mg PO BEDTIME permethrin 5 % cream 1 applic topical Q14D Qty: 60 0RF Rx Instructions: apply second treatment 14 days after first treatment if live lice remain Referrals: Francisco Lobo ARNP [Primary Care Provider] - Stand Alone Forms: Patient Portal/API
[2022-06-16 01:40] VITALS: PULSE 80; RESP 16; TEMP 36.6; O2SAT 100
[2022-06-16] MEDS: ONDANSETRON 4 MG ODT SL (01:45)
--- NOTE | 2022-06-16 02:19 | PC.NURSE ---
Addendum entered by Tatum Mercado CNA 06/16/22 04:32: Patient got aggressive and banged at door while yelling. Naida in admitting called to asked what we are supposed to do. We let her be outside. While discharging a patient through the registration side door, patient was able to get in. Patient refused to leave, demanding to stay, saying it was her right, patient wanted us to call the police, patient was yelling and screaming for help. Gregg guevara was called again. Patient was getting animated with her hands, patient refused to leave, offered water and yogurt as a way to say we will give you a snackie if you leave. Patient refused. I got patients in the ER waiting room out of the way, brought them into the ER, as Jose Alfredo the transportation security officer called the police. Patient was arrested for trespassing and disruptive/disturbing behaviors. Alerted Nicolasa THOMPSON. QMM filled out Original Note: Patient was discharged out of the ER per PACT team policy. Patient was leaving w/ DONNA Leno, refused to leave. Was told to call a gregg hughes overhead. Gregg hughes was call overhead, patient stood in the tertiary area between the ER entrance, and the outside. Patient had staff and transportation security officer telling her she needed to leave, that that's the plan per her pact team. She refused, yelling at staff saying she doesn't feel sanjana, and called staff names. Per pact team plan Dr. Merchant was called. Staff attempted to have Khoi leave, refused. She is now sitting on the chair right inside the tertiary space. Called the pact team phone and left a message. Staff sent a text message to Nicolasa to let her know about the situation. Patient is refusing to leave. QMM filled out.
== END 2022-06-16 03:00 | disposition home or self-care (01) ==
PROVIDERS: Emergency Provider Emergency Medicine; Family Provider Family Medicine; PCP Registered Nurse Diabetes Educator
DX: R11.2 Nausea with vomiting, unspecified (principal)
CPT/HCPCS: 99282; 99283

== ENCOUNTER 2022-06-18 13:25 | Emergency (ER) | payer OTHER, MEDICAID, SELFPAY ==
[2022-06-18 14:15] VITALS: BP 189/119; PULSE 128; RESP 18; TEMP 37.1; O2SAT 100
--- NOTE | 2022-06-18 14:18 | ED.PSYCH ---
HPI - Psych General Chief Complaint: Psychiatric Symptoms Stated Complaint: feel scared Time Seen by Provider: 06/18/22 14:10 Source: patient, RN notes reviewed and old records reviewed Mode of arrival: Ambulatory Limitations: no limitations History of Present Illness HPI Narrative: This is a 42-year-old female with history of chronic paranoid schizophrenia and history of methamphetamine abuse. Patient states she is she feels scared she felt like someone was chasing her she feels safer now that she is here. She presents with a friend who she is been seen with several times she states she feels very safe with him. Patient was seen independently without friend at bedside. Patient states that she has been off her medications for several days. She states she was in residential for 2 days she states there was a warrant she is been released. She has not met with her PAC team. She does ask if we can help set up a time and place for her to meet and receive her medications. Patient denies any active drug or alcohol use currently. She initially said no complaints but did have some nausea right before she was leaving. She denies any other symptoms currently. Related Data Home Medications Medication Instructions Recorded Confirmed olanzapine 10 mg tablet 10 mg PO QAM 05/21/22 06/03/22 olanzapine 20 mg tablet 20 mg PO BEDTIME 05/21/22 06/03/22 Previous Rx's Medication Instructions Recorded hydroxyzine HCl 25 mg tablet 25 mg PO QID PRN anxiety #30 tabs 05/21/22 permethrin 5 % topical cream 1 applic topical Q14D 2 doses #60 06/11/22 grams Allergies Allergy/AdvReac Type Severity Reaction Status Date / Time No Known Drug Allergies Allergy Verified 06/18/22 14:23 Review of Systems Review of Systems ROS Unobtainable: All systems reviewed & are unremarkable except as noted in HPI and below Patient History Medical History Drug abuse Homeless single person Methamphetamine abuse Schizophrenia Social History Smoking Status: Unknown if ever smoked Smoking Status: Unknown if ever smoked tobacco type: cigarettes alcohol intake frequency: holidays/special occasions only Substance Use Type: methamphetamine and unknown Exam Narrative Exam Narrative: GENERAL: Alert and oriented x three, disheveled female in mild distress. HEENT: Head normocephalic, atraumatic, EOMI, pupils reactive, face symmetric, moist mucous membranes NECK: Supple, full range of motion CARDIOVASCULAR: Regular rate and rhythm without murmurs, rubs or gallops. RESPIRATORY: Breath sounds equal bilaterally, no wheezes rales or rhonchi. ABDOMEN: Soft, nontender. Normoactive bowel sounds all 4 quadrants. No guarding or rebound, rigidity, no mass EXTREMITIES: Normal range of motion, no clubbing or edema. Neurovascularly intact NEUROLOGICAL: Cranial nerves II through XII grossly intact. Moving all extremities SKIN: Warm, dry, no petechiae, no rashes. PSYCH: Patient states she is quite paranoid no suicidal homicidal ideation. Patient does not appear to be responding to external stimuli at this time. She is fairly lucid and appropriate in her conversation and appears to be at her baseline from prior visits Initial Vital Signs Initial Vital Signs: Vital Signs Temperature 98.7 F 06/18/22 14:15 Pulse Rate 128 H 06/18/22 14:15 Respiratory Rate 18 06/18/22 14:15 Blood Pressure 189/119 H 06/18/22 14:15 Pulse Oximetry 100 06/18/22 14:15 Oxygen Delivery Method Room Air 06/18/22 14:15 Course Orders Ordered: ED Orders 06/18/22 14:32 Test Serum,Qual Stat 06/18/22 14:33 Complete Blood Count AUTO DIFF Stat Comprehensive Metabolic Panel Stat Lipase Stat Troponin & CK Cardiac Panel Stat EKG-12 Lead Stat Discontinued Medications Sodium Chloride (Normal Saline 0.9%) 1,000 mls @ 1,000 mls/hr IV BOLUS ONE Stop: 06/18/22 15:31 Ondansetron HCl (Ondansetron 4 Mg Odt) 4 mg SL NOW ONE Stop: 06/18/22 14:23 Last Admin: 06/18/22 14:25 Dose: 4 mg Documented By: BS Vital Signs Vital signs: Vital Signs - 8 hr 06/18/22 14:15 Temperature 98.7 F Pulse Rate 128 H Respiratory Rate 18 Blood Pressure 189/119 H Pulse Oximetry 100 Oxygen Delivery Method Room Air MDM - Psych MDM Narrative Medical decision making narrative: This is a 42-year-old female well-known to the department with history of chronic schizophrenia, paranoia who presents feeling scared like someone was chasing her. Patient is hypertensive and tachycardic she does not endorse any methamphetamine use although she has used in the past. Patient states she has been off her medications for several days she was incarcerated for about 2 days which was verified through our social work. She would like to meet with her pact team. She did endorse some nausea and with her atypical vitals were when team labs fluids give Zofran EKG and cardiac enzymes. Patient elected not to pursue this. She does appear appropriate at this time refused treatment. Patient does not appear to be gravely disabled requiring CA currently. Discharge Plan Departure Patient Disposition: Left Against Medical Advice Clinical Impression: Left against medical advice Prescriptions: No Action hydroxyzine HCl 25 mg tablet 25 mg PO QID PRN (Reason: anxiety) Qty: 30 0RF olanzapine 10 mg tablet 10 mg PO QAM olanzapine 20 mg tablet 20 mg PO BEDTIME permethrin 5 % cream 1 applic topical Q14D Qty: 60 0RF Rx Instructions: apply second treatment 14 days after first treatment if live lice remain Stand Alone Forms: Against Medical Advice
--- NOTE | 2022-06-18 14:23 | PC.NURSE ---
while patient was in the triage room and about to walk out when she sat back down and states i just need a minute i don't feel so good. she reports I am just nauseous. patient given an emesis bag and started to gag. she did not vomit. Dr. Coleman made aware and Dr. Coleman is going to order some ODT zofran.
[2022-06-18] MEDS: ONDANSETRON 4 MG ODT SL (14:25)
--- NOTE | 2022-06-18 14:45 | PC.NURSE ---
patient brought back to room 7 for lab work and fluids. patient asked if her friend can come back. she was told no. patient states i think i am just going to go. i offered for patient to just have lab work drawn and she reports no i think i am just going to leave. patient asked for the wheelchair and asked to be taken back to the waiting room with her friend. rim fire charger operator and Dr. Coleman aware.
--- NOTE | 2022-06-18 14:45 | PC.NURSE ---
Pt's belt knife feeder has been verbally assaultive and threatening to staff in the past and because of this was not brought back with pt.
--- NOTE | 2022-06-18 14:48 | CM.SWNOTE ---
INSTRUMENTATION INSTRUCTOR Note Patient was triaged in ED and ED provider had concern for tachycardia, high blood pressure and nausea. Patient was offered room to medical evaluation and labs. Per condenser winder, patient declined because patient's friend was not allowed back in room with patient. Patient chose to leave ED. INSTRUMENTATION INSTRUCTOR calls PACT team and leaves VM regarding patient's presentation to ED. INSTRUMENTATION INSTRUCTOR to call [facility] Machine Engraver as well. JENNY Rogers
== END 2022-06-18 14:47 | disposition left against medical advice (07) ==
PROVIDERS: Emergency Provider Emergency Medicine; Family Provider Family Medicine; PCP Registered Nurse Diabetes Educator
DX: F20.9 Schizophrenia, unspecified (principal); R11.0 Nausea; Z53.29 Procedure and treatment not carried out because of patient's decision for other reasons

== ENCOUNTER 2022-06-18 19:12 | Emergency (ER) | payer OTHER, MEDICAID, SELFPAY ==
[2022-06-18 19:18] VITALS: BP 181/103; PULSE 116; RESP 16; TEMP 37.7; O2SAT 99; BMI 57.8
--- NOTE | 2022-06-18 19:59 | ED_ITS ---
HPI - Anxiety General Chief Complaint: Anxiety Stated Complaint: scared Time Seen by Provider: 06/18/22 19:21 Source: patient Mode of arrival: EMS History of Present Illness HPI narrative: 42-year-old female who comes in the emergency department for the 2nd time today stating that she is feeling scared, feeling like someone was chasing her, continue nausea for which she was seen for earlier today and generally not feeling very well. Patient was seen earlier today for very similar symptoms. Feeling scared and feel like someone was chasing her is very common presentation for her. She was seen earlier today and was found to be hypertensive and tachycardic however left against medical advice. She states she is still having some nausea. Patient did have somewhat of a coherent conversation stating that she feels safe here in the emergency department. She states she is very scared. She states that ?I can do this anymore? she is very persistent about having someone in the room with her. I asked her if she felt like being admitted to mental health facility and she stated that she thought that that would be a good idea. She did agree to have blood drawn. Related Data Home Medications Medication Instructions Recorded Confirmed olanzapine 10 mg tablet 10 mg PO QAM 05/21/22 06/03/22 olanzapine 20 mg tablet 20 mg PO BEDTIME 05/21/22 06/03/22 Previous Rx's Medication Instructions Recorded hydroxyzine HCl 25 mg tablet 25 mg PO QID PRN anxiety #30 tabs 05/21/22 permethrin 5 % topical cream 1 applic topical Q14D 2 doses #60 06/11/22 grams Allergies Allergy/AdvReac Type Severity Reaction Status Date / Time No Known Drug Allergies Allergy Verified 06/18/22 14:23 Review of Systems Cardiovascular Comments: She denied chest pain Respiratory Comments: She denies shortness of breath Gastrointestinal Gastrointestinal: Reports system reviewed and no additional complaints, except as documented Psychiatric Psychiatric: Reports system reviewed and no additional complaints, except as documented Patient History Medical History Drug abuse Homeless single person Methamphetamine abuse Schizophrenia Social History Smoking Status: Current every day smoker Smoking Status: Current every day smoker tobacco type: cigarettes alcohol intake frequency: holidays/special occasions only Substance Use Type: does not use, methamphetamine and unknown Exam Initial Vital Signs Initial Vital Signs: Vital Signs Temperature 99.9 F H 06/18/22 19:18 Pulse Rate 116 H 06/18/22 19:18 Respiratory Rate 16 06/18/22 19:18 Blood Pressure 181/103 H 06/18/22 19:18 Pulse Oximetry 99 06/18/22 19:18 Oxygen Delivery Method Room Air 06/18/22 19:18 Const General: disheveled and well hydrated Resp Effort & Inspection: normal respiratory effort Cardio Rate: regular rate Neuro General: patient alert, patient awake and moves all extremities Gait: normal gait Psych Appearance: disheveled Speech and Movement: speech clear, pressured speech and restless Mood: paranoid Affect: animated and elated Course Orders Ordered: ED Orders 06/18/22 20:07 COVID19 -Nasal RAPID Stat 06/18/22 20:12 Acetaminophen Stat Complete Blood Count AUTO DIFF Stat Comprehensive Metabolic Panel Stat Ethanol (ETOH) Stat Lipase Stat Test Serum,Qual Stat Thyroid Stimulating Hormone Stat Discontinued Medications Lorazepam (Lorazepam 0.5 Mg Tablet) 1 mg PO NOW ONE Stop: 06/18/22 20:01 Last Admin: 06/18/22 20:27 Dose: 1 mg Documented By: IDA Vital Signs Vital signs: Vital Signs - 8 hr 06/18/22 19:18 06/18/22 22:35 Temperature 99.9 F H Pulse Rate 116 H 98 H Respiratory Rate 16 18 Blood Pressure 181/103 H 138/92 H Pulse Oximetry 99 98 Oxygen Delivery Method Room Air Room Air MDM - Anxiety Lab Data Attestation: I reviewed the patient's lab results. 06/18/22 20:12 06/18/22 20:12 Labs: Lab Results 06/18/22 06/18/22 06/18/22 Range/Units 20:07 20:12 20:12 WBC 9.8 (4.5-11.0) X10^3/uL RBC 4.48 (4.0-5.2) X10^6/uL Hgb 11.8 L (12.0-16.0) g/dL Hct 35.8 L (36-46) % MCV 80.0 (80-100) fL MCH 26.4 (26-34) PG MCHC 33.0 (30-36) % RDW 16.1 H (11.6-14.8) % Plt Count 505 H (150-400) X10^3/uL Neut % (Auto) 81.0 H (50-75) % Lymph % (Auto) 12.4 L (25-40) % Mcclain % (Auto) 4.7 (3-14) % Eos % (Auto) 1.0 L (2-4) % Baso % (Auto) 0.9 (0-2) % Neut # (Auto) 8000 H (1577-5964) /uL Lymph # (Auto) 1200 (6032-6245) /uL Mcclain # (Auto) 500 (0-900) /uL Eos # (Auto) 100 (0-450) /uL Baso # (Auto) 100 (0-100) /uL Sodium 137 (137-145) mmol/L Potassium 3.6 (3.4-5.1) mmol/L Chloride 101 (98-107) mmol/L Carbon Dioxide 29 (22-32) mmol/L BUN 15 (7-17) mg/dL Creatinine 0.81 (0.52-1.04) mg/dL Estimated GFR > 60 (>60) mL/min BUN/Creatinine Ratio 18.5 (6-22) Glucose 112 H (70-100) mg/dL Calcium 8.9 (8.4-10.2) mg/dL Total Bilirubin 0.4 (0.2-1.3) mg/dL AST 20 (14-36) IU/L ALT 17 (<35) IU/L Alkaline Phosphatase 78 (38-126) U/L Total Protein 7.8 (6.3-8.2) g/dL Albumin 4.1 (3.5-5.0) g/dL Globulin 3.7 (1.7-4.1) g/dL Albumin/Globulin Ratio 1.1 (1.0-2.8) Lipase 61 (23-300) U/L TSH (0.47-4.68) uIU/mL Serum , Qual (Negative) Acetaminophen < 10 (10-30) ug/mL Ethyl Alcohol < 10 ( - 10) mg/dL SARS-CoV-2 (PCR) Negative (Negative) 06/18/22 06/18/22 Range/Units 20:12 20:12 WBC (4.5-11.0) X10^3/uL RBC (4.0-5.2) X10^6/uL Hgb (12.0-16.0) g/dL Hct (36-46) % MCV (80-100) fL MCH (26-34) PG MCHC (30-36) % RDW (11.6-14.8) % Plt Count (150-400) X10^3/uL Neut % (Auto) (50-75) % Lymph % (Auto) (25-40) % Mcclain % (Auto) (3-14) % Eos % (Auto) (2-4) % Baso % (Auto) (0-2) % Neut # (Auto) (6041-7984) /uL Lymph # (Auto) (6174-1323) /uL Mcclain # (Auto) (0-900) /uL Eos # (Auto) (0-450) /uL Baso # (Auto) (0-100) /uL Sodium (137-145) mmol/L Potassium (3.4-5.1) mmol/L Chloride (98-107) mmol/L Carbon Dioxide (22-32) mmol/L BUN (7-17) mg/dL Creatinine (0.52-1.04) mg/dL Estimated GFR (>60) mL/min BUN/Creatinine Ratio (6-22) Glucose (70-100) mg/dL Calcium (8.4-10.2) mg/dL Total Bilirubin (0.2-1.3) mg/dL AST (14-36) IU/L ALT (<35) IU/L Alkaline Phosphatase (38-126) U/L Total Protein (6.3-8.2) g/dL Albumin (3.5-5.0) g/dL Globulin (1.7-4.1) g/dL Albumin/Globulin Ratio (1.0-2.8) Lipase (23-300) U/L TSH 3.62 (0.47-4.68) uIU/mL Serum , Qual Negative (Negative) Acetaminophen (10-30) ug/mL Ethyl Alcohol ( - 10) mg/dL SARS-CoV-2 (PCR) (Negative) MDM Narrative Medical decision making narrative: Initially patient was at her baseline mental status per my prior evaluations with her. She is still disheveled. She is paranoid. Was tachycardic and hypertensive but was not having chest pain or shortness of breath. She agreed to have blood drawn. She agreed to a dose of Ativan. Per report she did meet with her PACT team today and she received her dose of olanzapine. Upon arrival patient was voluntary. She stated that she was having quite a bit of difficulty and did not want to continue going on with the level of paranoia that she is having. She was willing for us to try to find inpatient mental health facility for her. After the Ativan patient did calm down and she slept for awhile. One of her companions was in the emergency department as well being seen as a patient. When he was discharged Claire woke up and stated that she would like to be discharged with him. Will discharge patient home. Discharge Plan Departure Patient Disposition: Home Clinical Impression: Paranoia Activity Restrictions/Additional Instructions: I recommend that you continue to meet with your PACT team on a daily basis so that you can continue to get your medications. Prescriptions: No Action hydroxyzine HCl 25 mg tablet 25 mg PO QID PRN (Reason: anxiety) Qty: 30 0RF olanzapine 10 mg tablet 10 mg PO QAM olanzapine 20 mg tablet 20 mg PO BEDTIME permethrin 5 % cream 1 applic topical Q14D Qty: 60 0RF Rx Instructions: apply second treatment 14 days after first treatment if live lice remain Referrals: Francisco Lobo ARNP [Primary Care Provider] - Stand Alone Forms: Patient Portal/API
[2022-06-18] MEDS: LORazepam 0.5 MG TABLET 1 MG PO (20:27)
[2022-06-18 20:32] LABS: Add Manual Diff / Slide Review NO; Basophils Absolute Auto 100 /uL (0-100); Basophils Percent Auto 0.9 % (0-2); Eosinophils Absolute Auto 100 /uL (0-450); Hematocrit 35.8 % (36-46); Hemoglobin 11.8 g/dL (12.0-16.0); Lymphocytes Absolute Auto 1200 /uL (1100-4500); Lymphocytes Percent Auto 12.4 % (25-40); Mean Corpuscular Hemoglobin 26.4 PG (26-34); Monocytes Absolute Auto 500 /uL (0-900); Monocytes Percent Auto 4.7 % (3-14); Neutrophils Absolute Auto 8000 /uL (1500-7000); Platelet Count 505 X10^3/uL (150-400); Red Blood Cell Count 4.48 X10^6/uL (4.0-5.2); Red Cell Distribution Width 16.1 % (11.6-14.8); White Blood Cell Count 9.8 X10^3/uL (4.5-11.0)
[2022-06-18 20:43] LABS: COVID19 -Nasal RAPID Negative (Negative)
[2022-06-18 20:50] LABS: Acetaminophen < 10 ug/mL (10-30); Alanine Aminotransferase 17 IU/L (<35); Albumin 4.1 g/dL (3.5-5.0); Albumin Globulin Ratio 1.1 (1.0-2.8); Alkaline Phosphatase 78 U/L (38-126); Aspartate Aminotransferase 20 IU/L (14-36); BUN Creatinine Ratio 18.5 (6-22); Bilirubin Total 0.4 mg/dL (0.2-1.3); Blood Urea Nitrogen 15 mg/dL (7-17); Calcium 8.9 mg/dL (8.4-10.2); Carbon Dioxide 29 mmol/L (22-32); Chloride 101 mmol/L (98-107); Estimated Glomerular Filt Rate > 60 mL/min (>60); Ethanol (ETOH) < 10 mg/dL; Globulin 3.7 g/dL (1.7-4.1); Glucose 112 mg/dL (70-100); HEMOLYSIS < 15 (0-50); Lipase 61 U/L (23-300); Potassium 3.6 mmol/L (3.4-5.1); Sodium 137 mmol/L (137-145); Total Protein 7.8 g/dL (6.3-8.2)
[2022-06-18 21:00] LABS: Pregnancy Test Serum,Qual Negative (Negative)
[2022-06-18 21:30] LABS: Thyroid Stimulating Hormone 3.62 uIU/mL (0.47-4.68)
[2022-06-18 22:35] VITALS: BP 138/92; PULSE 98; RESP 18; O2SAT 98
== END 2022-06-18 22:37 | disposition home or self-care (01) ==
PROVIDERS: Emergency Provider Emergency Medicine; Family Provider Family Medicine; PCP Registered Nurse Diabetes Educator
DX: F22 Delusional disorders (principal); Z20.822 Contact with and (suspected) exposure to COVID-19
CPT/HCPCS: 36415; 80053; 80320; 80329; 83690; 84443; 84703; 85025; 87635; 99283; C9803; G0480

== ENCOUNTER 2022-07-24 02:57 | Emergency (ER) | payer OTHER, MEDICAID, SELFPAY ==
[2022-07-24 02:59] VITALS: PULSE 125; RESP 16; O2SAT 97; BMI 26.6
[2022-07-24 03:07] VITALS: BP 179/110
[2022-07-24 05:10] VITALS: BP 165/102; PULSE 104; RESP 22; O2SAT 98
[2022-07-24 05:33] LABS: Add Manual Diff / Slide Review NO; Basophils Absolute Auto 0 /uL (0-100); Basophils Percent Auto 0.2 % (0-2); Eosinophils Absolute Auto 200 /uL (0-450); Hematocrit 36.9 % (36-46); Hemoglobin 12.2 g/dL (12.0-16.0); Lymphocytes Absolute Auto 1200 /uL (1100-4500); Lymphocytes Percent Auto 9.8 % (25-40); Mean Corpuscular HGB Conc 33.1 % (30-36); Mean Corpuscular Hemoglobin 26.9 PG (26-34); Mean Corpuscular Volume 81.4 fL (80-100); Monocytes Absolute Auto 700 /uL (0-900); Monocytes Percent Auto 5.9 % (3-14); Neutrophils Absolute Auto 10000 /uL (1500-7000); Neutrophils Percent Auto 82.1 % (50-75); Platelet Count 367 X10^3/uL (150-400); Red Blood Cell Count 4.54 X10^6/uL (4.0-5.2); Red Cell Distribution Width 17.2 % (11.6-14.8); White Blood Cell Count 12.2 X10^3/uL (4.5-11.0)
--- NOTE | 2022-07-24 05:40 | ED.ANXIETY ---
HPI - Anxiety General Chief Complaint: Anxiety Stated Complaint: Chest pain Time Seen by Provider: 07/24/22 03:03 Mode of arrival: EMS History of Present Illness HPI narrative: 42-year-old female smoker with history of schizophrenia and methamphetamine abuse presents by EMS for evaluation of anxiety, she is scared that she is unsafe in her current state of living and has chest pain. This is very similar to multiple prior visits with us. She had recently been incarcerated for upwards of a month and had been stable on medications and by largest doing well. She denies any headaches or blurred vision. She denies any trouble breathing but has had the occasional cough. She denies any nausea, vomiting or diarrhea. She states her last methamphetamine use was about a month ago. Related Data Home Medications Medication Instructions Recorded Confirmed olanzapine 10 mg tablet 10 mg PO QAM 05/21/22 06/03/22 olanzapine 20 mg tablet 20 mg PO BEDTIME 05/21/22 06/03/22 Previous Rx's Medication Instructions Recorded hydroxyzine HCl 25 mg tablet 25 mg PO QID PRN anxiety #30 tabs 05/21/22 permethrin 5 % topical cream 1 applic topical Q14D 2 doses #60 06/11/22 grams lisinopril 20 mg tablet 20 mg PO DAILY #30 tabs 07/24/22 Allergies Allergy/AdvReac Type Severity Reaction Status Date / Time No Known Drug Allergies Allergy Verified 06/18/22 14:23 Review of Systems Review of Systems Narrative: GENERAL: Denies chills, fatigue, malaise, fever, sweats. HEENT: Denies sinus pain, ear pain, sore throat, difficulty swallowing, dizziness. RESPIRATORY: Denies dyspnea, cough, wheezing, hemoptysis, sputum. CARDIOVASCULAR: See HPI GASTROINTESTINAL: Denies nausea, vomiting, abdominal pain, diarrhea, constipation, melena. : Denies dysuria, frequency, incontinence, hematuria, urinary retention. MUSCULOSKELETAL: denies weakness, joint pain, or bony pain SKIN: Denies rash, skin lesions, or other NEUROLOGIC: Denies weakness, headache, numbness, change in speech, confusion, seizures, incoordination. PSYCHIATRIC: See HPI 12 point review of systems is negative except for those stated above Patient History Medical History Drug abuse Homeless single person Methamphetamine abuse Schizophrenia Social History Smoking Status: Current every day smoker Smoking Status: Current every day smoker tobacco type: cigarettes alcohol intake frequency: holidays/special occasions only Substance Use Type: methamphetamine and unknown Exam Narrative Exam Narrative: GENERAL: [42] year old patient appears stated age. Well-developed patient, in mild distress. HEAD: Atraumatic. Normocephalic. EYES: Pupils equal round and reactive. Extraocular motions intact. No scleral icterus. No injection or drainage. ENT: Nose without bleeding, purulent drainage. Throat without erythema, tonsillar hypertrophy or exudate. Airway patent. NECK: Trachea midline. Non tender CARDIOVASCULAR: Tachycardic but regular rhythm without murmurs, gallops, or rubs. RESPIRATORY: Clear to auscultation. Breath sounds equal bilaterally. No wheezes, rales, or rhonchi. GASTROINTESTINAL: Abdomen soft, non-tender, nondistended. EXTREMITIES: No edema or joint tenderness. BACK: Nontender without deformity or crepitance. No flank tenderness. NEURO: AOx3. SKIN: No rash or erythema of visible areas Initial Vital Signs Initial Vital Signs: Vital Signs Pulse Rate 125 H 07/24/22 02:59 Respiratory Rate 16 07/24/22 02:59 Pulse Oximetry 97 07/24/22 02:59 Oxygen Delivery Method Room Air 07/24/22 02:59 Course Orders Ordered: Discontinued Medications Aspirin (Aspirin 81 Mg Chew Tab) 324 mg PO NOW ONE Stop: 07/24/22 05:18 Last Admin: 07/24/22 06:00 Dose: 324 mg Documented By: CAROLYN Sodium Chloride (Normal Saline 0.9%) 1,000 mls @ 1,000 mls/hr IV BOLUS ONE Stop: 07/24/22 06:16 Last Infusion: 07/24/22 07:04 Dose: 0 mls/hr Documented By: Admin: 07/24/22 06:00 Dose: 1,000 mls/hr Documented By: CAROLYN Lisinopril (Lisinopril 20 Mg Tablet) 20 mg PO NOW ONE Stop: 07/24/22 06:14 Last Admin: 07/24/22 06:23 Dose: 20 mg Documented By: CAROLYN Vital Signs Vital signs: Vital Signs - 8 hr 07/24/22 02:59 07/24/22 03:07 07/24/22 05:10 Pulse Rate 125 H 104 H Respiratory Rate 16 22 Blood Pressure 179/110 H 165/102 H Pulse Oximetry 97 98 Oxygen Delivery Method Room Air Room Air MDM - Anxiety Lab Data 07/24/22 05:23 07/24/22 05:23 Labs: Lab Results 07/24/22 07/24/22 07/24/22 Range/Units 05:23 05:23 05:23 WBC 12.2 H (4.5-11.0) X10^3/uL RBC 4.54 (4.0-5.2) X10^6/uL Hgb 12.2 (12.0-16.0) g/dL Hct 36.9 (36-46) % MCV 81.4 (80-100) fL MCH 26.9 (26-34) PG MCHC 33.1 (30-36) % RDW 17.2 H (11.6-14.8) % Plt Count 367 (150-400) X10^3/uL Neut % (Auto) 82.1 H (50-75) % Lymph % (Auto) 9.8 L (25-40) % [place] % (Auto) 5.9 (3-14) % Eos % (Auto) 2.0 (2-4) % Baso % (Auto) 0.2 (0-2) % Neut # (Auto) 19018 H (2234-5950) /uL Lymph # (Auto) 1200 (3691-0565) /uL [place] # (Auto) 700 (0-900) /uL Eos # (Auto) 200 (0-450) /uL Baso # (Auto) 0 (0-100) /uL D-Dimer (<500) ng/ml Sodium 139 (137-145) mmol/L Potassium 3.3 L (3.4-5.1) mmol/L Chloride 99 (98-107) mmol/L Carbon Dioxide 28 (22-32) mmol/L BUN 12 (7-17) mg/dL Creatinine 0.76 (0.52-1.04) mg/dL Estimated GFR > 60 (>60) mL/min BUN/Creatinine Ratio 15.8 (6-22) Glucose 81 (70-100) mg/dL Calcium 8.5 (8.4-10.2) mg/dL Total Bilirubin 0.7 (0.2-1.3) mg/dL AST 37 H (14-36) IU/L ALT 22 (<35) IU/L Alkaline Phosphatase 81 (38-126) U/L Total Creatine Kinase 829 H (30-135) U/L CK-MB (CK-2) 2.66 H (<2.37) ng/mL CK-MB (CK-2) Rel Index 0.3 L (1.5-5.0) % Troponin I < 0.012 (0.01-0.034) ng/mL Total Protein 7.5 (6.3-8.2) g/dL Albumin 4.1 (3.5-5.0) g/dL Globulin 3.4 (1.7-4.1) g/dL Albumin/Globulin Ratio 1.2 (1.0-2.8) Lipase 27 (23-300) U/L 07/24/22 Range/Units 05:23 WBC (4.5-11.0) X10^3/uL RBC (4.0-5.2) X10^6/uL Hgb (12.0-16.0) g/dL Hct (36-46) % MCV (80-100) fL MCH (26-34) PG MCHC (30-36) % RDW (11.6-14.8) % Plt Count (150-400) X10^3/uL Neut % (Auto) (50-75) % Lymph % (Auto) (25-40) % [place] % (Auto) (3-14) % Eos % (Auto) (2-4) % Baso % (Auto) (0-2) % Neut # (Auto) (5613-4139) /uL Lymph # (Auto) (8222-3145) /uL [place] # (Auto) (0-900) /uL Eos # (Auto) (0-450) /uL Baso # (Auto) (0-100) /uL D-Dimer 436 (<500) ng/ml Sodium (137-145) mmol/L Potassium (3.4-5.1) mmol/L Chloride (98-107) mmol/L Carbon Dioxide (22-32) mmol/L BUN (7-17) mg/dL Creatinine (0.52-1.04) mg/dL Estimated GFR (>60) mL/min BUN/Creatinine Ratio (6-22) Glucose (70-100) mg/dL Calcium (8.4-10.2) mg/dL Total Bilirubin (0.2-1.3) mg/dL AST (14-36) IU/L ALT (<35) IU/L Alkaline Phosphatase (38-126) U/L Total Creatine Kinase (30-135) U/L CK-MB (CK-2) (<2.37) ng/mL CK-MB (CK-2) Rel Index (1.5-5.0) % Troponin I (0.01-0.034) ng/mL Total Protein (6.3-8.2) g/dL Albumin (3.5-5.0) g/dL Globulin (1.7-4.1) g/dL Albumin/Globulin Ratio (1.0-2.8) Lipase (23-300) U/L MDM Narrative Medical decision making narrative: [42] year old patient presents with anxiety, scared that she is being chased Multiple etiologies for patient's symptoms considered including, but not limited to: [Schizophrenia, methamphetamine abuse, cardiac ischemia, pulmonary embolism versus other] Prior Charts reviewed in our EMR Primary Historian: patient Labs reviewed and interpreted by myself: Subtle leukocytosis, no left shift, no signs of anemia, subtle decrease in potassium at 3.3, electrolytes, renal function otherwise normal, D-dimer below cutoff Patient's symptoms improved over duration of stay with above-stated therapies. Findings and discharge diagnosis discussed with patient/family followed by verbalization of understanding Return precautions discussed with patient/family whom verbalize understanding of diagnosis and plan Discharge Plan Departure Patient Disposition: Home Clinical Impression: Schizophrenia Instructions: Anxiety Disorders Activity Restrictions/Additional Instructions: *You have been diagnosed with [schizophrenia, hypertension] *What to do: *Please continue to take your regular medications as directed. [x ] New medication prescriptions sent to your pharmacy: [[facility] ] [ ] New medication written as a paper prescription [ ] No new medications given *Please follow up with your primary care provider in 2-3 days, call for an appointment. Let them know you were seen in the Emergency Department and that we ask that you be seen in follow up. We will electronically transmit a record of today's note if your PCP is in our system *If you do not have a primary care provider please contact the [facility] Resource line at [phone]. They will ask some questions about your medical history and help get you set up with a doctor in the community. *Return to Emergency Department if you should have any new, worsening or concerning symptoms, such as [fever greater than 101 F, shaking chills, worsening pain, persistent vomiting or other bothersome symptoms] Prescriptions: New lisinopril 20 mg tablet 20 mg PO DAILY Qty: 30 0RF No Action hydroxyzine HCl 25 mg tablet 25 mg PO QID PRN (Reason: anxiety) Qty: 30 0RF olanzapine 10 mg tablet 10 mg PO QAM olanzapine 20 mg tablet 20 mg PO BEDTIME permethrin 5 % cream 1 applic topical Q14D Qty: 60 0RF Rx Instructions: apply second treatment 14 days after first treatment if live lice remain Referrals: Francisco Lobo ARNP [Primary Care Provider] - Stand Alone Forms: Patient Portal/API
[2022-07-24 05:45] LABS: Creatine Kinase 829 U/L (30-135)
[2022-07-24 05:47] LABS: Alanine Aminotransferase 22 IU/L (<35); Albumin 4.1 g/dL (3.5-5.0); Albumin Globulin Ratio 1.2 (1.0-2.8); Alkaline Phosphatase 81 U/L (38-126); Aspartate Aminotransferase 37 IU/L (14-36); BUN Creatinine Ratio 15.8 (6-22); Bilirubin Total 0.7 mg/dL (0.2-1.3); Blood Urea Nitrogen 12 mg/dL (7-17); Calcium 8.5 mg/dL (8.4-10.2); Carbon Dioxide 28 mmol/L (22-32); Chloride 99 mmol/L (98-107); Estimated Glomerular Filt Rate > 60 mL/min (>60); Globulin 3.4 g/dL (1.7-4.1); Glucose 81 mg/dL (70-100); HEMOLYSIS < 15 (0-50); Lipase 27 U/L (23-300); Potassium 3.3 mmol/L (3.4-5.1); Sodium 139 mmol/L (137-145); Total Protein 7.5 g/dL (6.3-8.2)
[2022-07-24 05:58] LABS: Troponin I < 0.012 ng/mL (0.01-0.034)
[2022-07-24 06:00] LABS: CKMB % Relative Index 0.3 % (1.5-5.0); Creatine Kinase MB 2.66 ng/mL (<2.37)
[2022-07-24] MEDS: ASPIRIN 81 MG CHEW TAB 324 MG PO (06:00)
[2022-07-24] MEDS: SODIUM CHLORIDE 0.9% 1,000 ML 1000 ML IV (06:00)
[2022-07-24 06:03] LABS: D Dimer 436 ng/ml (<500)
[2022-07-24] MEDS: lisinopriL 20 MG TABLET PO (06:23)
[2022-07-24 07:01] VITALS: BP 172/99; PULSE 102; RESP 18; O2SAT 98
== END 2022-07-24 07:02 | disposition home or self-care (01) ==
PROVIDERS: Emergency Provider Emergency Medicine; Family Provider Family Medicine; PCP Registered Nurse Diabetes Educator
DX: F20.9 Schizophrenia, unspecified (principal); R07.9 Chest pain, unspecified
CPT/HCPCS: 36415; 80053; 82550; 82553; 83690; 84484; 85025; 85379; 93005; 99284

== ENCOUNTER 2022-07-26 19:20 | Emergency (ER) | payer OTHER, MEDICAID, SELFPAY ==
[2022-07-26 19:27] VITALS: BP 167/94; PULSE 111; RESP 20; TEMP 36.7; O2SAT 96
--- NOTE | 2022-07-26 19:39 | CM.SWNOTE ---
DRIVER EXAMINER Note Patient presents to ED via EMS, DRIVER EXAMINER reviews [place] and it is reported that patient was at [facility] twice and [facility] once yesterday regarding similar concerns and presentation of paranoia, anxiety and/or chest pain. DRIVER EXAMINER attempts to call PACT team regarding patient's presentation to ED but voicemail box is full. DRIVER EXAMINER proceeds to email care coordination team including (community manager behavior, PACT teamsite developer, [facility], and ED director) regarding patient's presentation and DRIVER EXAMINER's attempt to reach the PACT team. Plan: ED provider to assess patient and patient is likely to d/c to community upon medical clearance. Roselyn Michel, POLE FRAMER MACHINE
[2022-07-26] MEDS: OLANZapine ODT 10 MG TAB PO (20:06)
--- NOTE | 2022-07-27 05:19 | ED.RECABL ---
HPI - Recheck/Abnormal Lab/Rx General Chief Complaint: Recheck/Abnormal Lab/Rx Stated Complaint: mental health Time Seen by Provider: 07/26/22 19:33 Source: EMS Mode of arrival: Ambulatory History of Present Illness HPI narrative: 42-year-old female smoker with history of schizophrenia and methamphetamine abuse is well-known to myself and our facility presents by EMS for evaluation of feeling scared that someone is after. She states that she is had a hard time getting her medications but they are at the [facility]. She denies suicidal or homicidal ideation. She states she is not used methamphetamines for about 1 month. She is requesting a dose of her medications Related Data Home Medications Medication Instructions Recorded Confirmed olanzapine 10 mg tablet 10 mg PO QAM 05/21/22 06/03/22 olanzapine 20 mg tablet 20 mg PO BEDTIME 05/21/22 06/03/22 Previous Rx's Medication Instructions Recorded hydroxyzine HCl 25 mg tablet 25 mg PO QID PRN anxiety #30 tabs 05/21/22 permethrin 5 % topical cream 1 applic topical Q14D 2 doses #60 06/11/22 grams lisinopril 20 mg tablet 20 mg PO DAILY #30 tabs 07/24/22 Allergies Allergy/AdvReac Type Severity Reaction Status Date / Time No Known Drug Allergies Allergy Verified 06/18/22 14:23 Review of Systems Review of Systems Narrative: GENERAL: Denies chills, fatigue, malaise, fever, sweats. HEENT: Denies sinus pain, ear pain, sore throat, difficulty swallowing, dizziness. RESPIRATORY: Denies dyspnea, cough, wheezing, hemoptysis, sputum. CARDIOVASCULAR: Denies chest pain, palpitations, orthopnea, edema, GASTROINTESTINAL: Denies nausea, vomiting, abdominal pain, diarrhea, constipation, melena. : Denies dysuria, frequency, incontinence, hematuria, urinary retention. MUSCULOSKELETAL: denies weakness, joint pain, or bony pain SKIN: Denies rash, skin lesions, or other NEUROLOGIC: Denies weakness, headache, numbness, change in speech, confusion, seizures, incoordination. PSYCHIATRIC: See HPI 12 point review of systems is negative except for those stated above Patient History Medical History Drug abuse Homeless single person Methamphetamine abuse Schizophrenia Social History Smoking Status: Current every day smoker Smoking Status: Current every day smoker tobacco type: cigarettes alcohol intake frequency: holidays/special occasions only Substance Use Type: methamphetamine and unknown Exam Narrative Exam Narrative: GENERAL: [42] year old patient appears stated age. Well-developed patient, in mild distress. GCS 15, speaking clearly, walking a straight line, demonstrating capacity HEAD: Atraumatic. Normocephalic. EYES: Pupils equal round and reactive. Extraocular motions intact. No scleral icterus. No injection or drainage. ENT: Nose without bleeding, purulent drainage. Throat without erythema, tonsillar hypertrophy or exudate. Airway patent. NECK: Trachea midline. Non tender CARDIOVASCULAR: Regular rate and rhythm without murmurs, gallops, or rubs. RESPIRATORY: Clear to auscultation. Breath sounds equal bilaterally. No wheezes, rales, or rhonchi. GASTROINTESTINAL: Abdomen soft, non-tender, nondistended. EXTREMITIES: No edema or joint tenderness. BACK: Nontender without deformity or crepitance. No flank tenderness. NEURO: AOx3. SKIN: No rash or erythema of visible areas Initial Vital Signs Initial Vital Signs: Vital Signs Temperature 98.1 F 07/26/22 19:27 Pulse Rate 111 H 07/26/22 19:27 Respiratory Rate 20 07/26/22 19:27 Blood Pressure 167/94 H 07/26/22 19:27 Pulse Oximetry 96 07/26/22 19:27 Oxygen Delivery Method Room Air 07/26/22 19:27 Course Orders Ordered: Discontinued Medications Olanzapine (Olanzapine Odt 10 Mg Tab) 10 mg PO NOW ONE Stop: 07/26/22 19:34 Last Admin: 07/26/22 20:06 Dose: 10 mg Documented By: SB MDM - Recheck/Abnormal Lab/Rx MDM Narrative Medical decision making narrative: [42] year old patient presents with fear that she is being chased Multiple etiologies for patient's symptoms considered including, but not limited to: [Schizophrenia not treated, methamphetamine use versus other] Prior Charts reviewed in our EMR Primary Historian: patient Patient has had a medical screening exam and there is no evidence that a medical emergency is present, further evaluation, labs, imaging and others are not indicated Findings and discharge diagnosis discussed with patient/family followed by verbalization of understanding Return precautions discussed with patient/family whom verbalize understanding of diagnosis and plan Discharge Plan Departure Patient Disposition: Home Clinical Impression: Schizophrenia, Methamphetamine abuse Instructions: DI for Schizophrenia Activity Restrictions/Additional Instructions: There is no evidence of an emergent or life threatening illness at this time, but follow up with your doctor in 1-2 days is recommended nonetheless to continue to rule out serious underlying causes of your symptoms. Please call the office for an appointment. Please return to the Emergency Department for any worsening or persistent symptoms. Please take medications as directed. Prescriptions: No Action hydroxyzine HCl 25 mg tablet 25 mg PO QID PRN (Reason: anxiety) Qty: 30 0RF olanzapine 10 mg tablet 10 mg PO QAM olanzapine 20 mg tablet 20 mg PO BEDTIME permethrin 5 % cream 1 applic topical Q14D Qty: 60 0RF Rx Instructions: apply second treatment 14 days after first treatment if live lice remain lisinopril 20 mg tablet 20 mg PO DAILY Qty: 30 0RF Referrals: Francisco Lobo ARNP [Primary Care Provider] - Stand Alone Forms: Patient Portal/API
== END 2022-07-26 20:12 | disposition home or self-care (01) ==
PROVIDERS: Emergency Provider Emergency Medicine; Family Provider Family Medicine; PCP Registered Nurse Diabetes Educator
DX: F20.9 Schizophrenia, unspecified (principal); F15.10 Other stimulant abuse, uncomplicated
CPT/HCPCS: 99283

== ENCOUNTER 2022-07-27 14:26 | Emergency (ER) | payer OTHER, MEDICAID, SELFPAY ==
--- NOTE | 2022-07-27 14:45 | PC.NURSE ---
Patient increasingly agitated in triage, would not allow RN to take vitals, speaking words to self and rubbing hands together. States get away from me, stood up, stated I need to pee, and walked out of triage.
[2022-07-27 14:49] VITALS: BP 191/115; PULSE 101; RESP 18; TEMP 36.6; O2SAT 100; BMI 25.8
--- NOTE | 2022-07-27 15:20 | PC.NURSE ---
Pt screaming in waiting room--incomprehensible speech and disturbing patients and employees. Security called police and pt was told to please leave the waiting area if she cannot behave appropriately. Pt with her belongings ambulated out of hospital doors.
== END 2022-07-27 15:23 | disposition left against medical advice (07) ==
PROVIDERS: Emergency Provider Emergency Medicine; Family Provider Family Medicine; PCP Registered Nurse Diabetes Educator
DX: R10.9 Unspecified abdominal pain (principal)
CPT/HCPCS: 99281

== ENCOUNTER 2022-07-31 04:46 | Emergency (ER) | payer OTHER, MEDICAID, SELFPAY ==
[2022-07-31 04:55] VITALS: BP 208/117; PULSE 107; RESP 16; TEMP 37.1; O2SAT 100
--- NOTE | 2022-07-31 05:07 | ED_ITS ---
HPI - General Adult General Chief complaint: Psychiatric Symptoms Stated complaint: being [place]. Time Seen by Provider: 07/31/22 04:47 History of Present Illness HPI narrative: 42-year-old woman with a history of schizophrenia, homelessness and methamphetamine use recently incarcerated for a period of time released in the last couple of days. He has been having escalating behaviors as noted by medics and police officers over the last 36 hours. She called 911 tonight complaining of chest pain. When medics arrived she is complaining of her usual findings which include I do not feel safe, I am scared without any other elaboration. She states that she has not been taking her psychiatric medications since [facility]. She has no additional complaints at this time. Related Data Home Medications Medication Instructions Recorded Confirmed olanzapine 10 mg tablet 10 mg PO QAM 05/21/22 06/03/22 olanzapine 20 mg tablet 20 mg PO BEDTIME 05/21/22 06/03/22 Previous Rx's Medication Instructions Recorded hydroxyzine HCl 25 mg tablet 25 mg PO QID PRN anxiety #30 tabs 05/21/22 permethrin 5 % topical cream 1 applic topical Q14D 2 doses #60 06/11/22 grams lisinopril 20 mg tablet 20 mg PO DAILY #30 tabs 07/24/22 Allergies Allergy/AdvReac Type Severity Reaction Status Date / Time No Known Drug Allergies Allergy Verified 07/27/22 14:55 Review of Systems Review of Systems Narrative: Pertinent positive and negative findings as per HPI Patient History Medical History Drug abuse Homeless single person Methamphetamine abuse Schizophrenia Social History Smoking Status: Current every day smoker Smoking Status: Current every day smoker tobacco type: cigarettes alcohol intake frequency: holidays/special occasions only Substance Use Type: methamphetamine and unknown Exam Initial Vital Signs Initial Vital Signs: Vital Signs Temperature 98.8 F 07/31/22 04:55 Pulse Rate 107 H 07/31/22 04:55 Respiratory Rate 16 07/31/22 04:55 Blood Pressure 208/117 H 07/31/22 04:55 Pulse Oximetry 100 07/31/22 04:55 Oxygen Delivery Method Room Air 07/31/22 04:55 General: Disheveled, street cleaner than she has been in quite awhile but still covered with foundation makeup including her 3 pigtails. She does smell strongly of methamphetamine HEENT: Moist mucous membranes, normal sclera with reactive pupils, Respiratory: Lungs are clear to auscultation, no wheezing no rales no rhonchi. Full and symmetrical air movement Cardiac: Tachycardic with no murmurs Abdomen: Soft, nontender, good bowel tones, no flank pain Skin: No obvious bruising or rashes Neurologic: Grossly neurologically intact with no obvious asymmetries or abnormalities, steady gait Extremities: No trauma, well perfused Psych: Poor eye contact, no complaints beyond I am scared. Her speech is not particularly pressured, she is not responding to internal or external stimuli. No evidence of acute psychosis at this time Course Vital Signs Vital signs: Vital Signs - 8 hr 07/31/22 04:55 Temperature 98.8 F Pulse Rate 107 H Respiratory Rate 16 Blood Pressure 208/117 H Pulse Oximetry 100 Oxygen Delivery Method Room Air Medical Decision Making MDM Narrative Medical decision making narrative: CC: ?I am scared?. This is an acute exacerbation of her chronic problems with uncertain prognosis Complicating co-morbidities: Schizophrenia, homelessness, methamphetamine use, recent incarceration, not taking current medications or following outpatient plans Data collected from: patient, medics Differential considered: Acute psychosis, acute medical problem Exam documented above, pertinent findings include: She is at her baseline. She continues to complain that she is scared, she is wondering if she can simply stay in the ER than she requests transfer to a hospital but is not showing signs of acute psychosis currently. Discussion: Based on our multidisciplinary plan for her, after medics brought her to the emergency department she was taken to the triage room. She had a medical screening evaluation and no immediate medical emergencies were identified. From a psychiatric standpoint she appears to be close to her base line and is not going to meet any criteria for hospitalization or being detained this time. Explained that she does need follow-up with her psychiatric team, she does need to be on her medications as it does definitely help her with that ?I am scared? feeling encouraged her to avoid methamphetamine and she is discharged. After declining to leave, gregg Nicole is called as per our current protocols Discharge Plan Departure Patient Disposition: Home Clinical Impression: Schizophrenia, Homeless single person, Methamphetamine abuse Activity Restrictions/Additional Instructions: I am sorry that you are feeling scared this morning. It is important that you take her medication and avoid methamphetamine. Your medication helps with your sense of security and methamphetamine always makes you feel far more anxious. You have had a medical screening examination in the emergency department. I did leave a voice message with your pact team to try and find you later this morning to see if they can offer additional assistance. Unfortunately at this time you do not meet criteria for hospitalization either medical or psychiatric and you do need to follow through with outpatient plans including taking routine medications and avoiding methamphetamine. I wish you the best Prescriptions: No Action hydroxyzine HCl 25 mg tablet 25 mg PO QID PRN (Reason: anxiety) Qty: 30 0RF olanzapine 10 mg tablet 10 mg PO QAM olanzapine 20 mg tablet 20 mg PO BEDTIME permethrin 5 % cream 1 applic topical Q14D Qty: 60 0RF Rx Instructions: apply second treatment 14 days after first treatment if live lice remain lisinopril 20 mg tablet 20 mg PO DAILY Qty: 30 0RF Referrals: Francisco Lobo ARNP [Primary Care Provider] - Stand Alone Forms: Patient Portal/API
--- NOTE | 2022-07-31 05:25 | PC.NURSE ---
After triage and provider evaluation, patient was determined to be ready for discharge. While reviewing discharge instructions patient stating she will refuse to leave. Policy explained to patient that security would be called if she refuses to leave. Patient at this time requesting police to be called. Security present and patient continues to refuse to leave triage room. Police arrive and speak with patient, she continues to refuse to voluntarily leave ED. Patient physically escorted out of triage by two [employer] officers.
== END 2022-07-31 05:25 | disposition home or self-care (01) ==
PROVIDERS: Emergency Provider Emergency Medicine; Family Provider Family Medicine; PCP Registered Nurse Diabetes Educator
DX: F20.9 Schizophrenia, unspecified (principal); F15.10 Other stimulant abuse, uncomplicated
CPT/HCPCS: 99283

== ENCOUNTER 2022-08-01 15:56 | Emergency (ER) | payer OTHER, MEDICAID, SELFPAY ==
[2022-08-01 16:30] VITALS: BP 160/85; PULSE 115; RESP 98; TEMP 36.9; O2SAT 95
== END 2022-08-01 17:15 | disposition left against medical advice (07) ==
PROVIDERS: Emergency Provider Emergency Medicine; Family Provider Family Medicine; PCP Registered Nurse Diabetes Educator
DX: F29 Unspecified psychosis not due to a substance or known physiological condition (principal)
CPT/HCPCS: 99281

== ENCOUNTER 2022-08-02 12:48 | Emergency (ER) | payer OTHER, MEDICAID, SELFPAY ==
[2022-08-02 13:10] VITALS: PULSE 128; RESP 22; TEMP 36.6; O2SAT 100
[2022-08-02 18:05] VITALS: PULSE 116; O2SAT 99
--- NOTE | 2022-08-02 18:07 | PC.NURSE ---
Pt refused BP. agitated and escalating.
--- NOTE | 2022-08-02 18:10 | ED.ANXIETY ---
HPI - Anxiety General Chief Complaint: Anxiety Stated Complaint: Mental health Time Seen by Provider: 08/02/22 18:00 Source: patient Mode of arrival: Ambulatory History of Present Illness HPI narrative: 42-year-old female history of schizophrenia and methamphetamine abuse all known to myself in this facility recently released from [facility] now presenting frequently to the ER as she did before. She is well established mental health patient and has significant outpatient resources including the PACT team. She presents frequently with thoughts of paranoia and anxiety and feeling unsafe. Today complaints are similar. She is noted to be quite tachycardic repeat vitals continue to show heart rate of 116 which is lower. She is requesting medication for her anxiety. Based on the [facility] plan ER is not to give her medications. She is requesting a safe place to stay. According to visit on 07/31/2022 she has not been taking her psychiatric medications since discharge from [facility]. Social work reports that she is on a long acting antipsychotic. Related Data Home Medications Medication Instructions Recorded Confirmed olanzapine 10 mg tablet 10 mg PO QAM 05/21/22 06/03/22 olanzapine 20 mg tablet 20 mg PO BEDTIME 05/21/22 06/03/22 Previous Rx's Medication Instructions Recorded hydroxyzine HCl 25 mg tablet 25 mg PO QID PRN anxiety #30 tabs 05/21/22 permethrin 5 % topical cream 1 applic topical Q14D 2 doses #60 06/11/22 grams lisinopril 20 mg tablet 20 mg PO DAILY #30 tabs 07/24/22 Allergies Allergy/AdvReac Type Severity Reaction Status Date / Time No Known Drug Allergies Allergy Verified 08/02/22 13:13 Review of Systems Review of Systems ROS Unobtainable: All systems reviewed & are unremarkable except as noted in HPI and below Patient History Medical History Drug abuse Homeless single person Methamphetamine abuse Schizophrenia Social History Smoking Status: Current every day smoker Smoking Status: Current every day smoker tobacco type: cigarettes alcohol intake frequency: holidays/special occasions only Substance Use Type: methamphetamine and unknown Exam Initial Vital Signs Initial Vital Signs: Vital Signs Temperature 98 F 08/02/22 13:10 Pulse Rate 128 H 08/02/22 13:10 Respiratory Rate 22 08/02/22 13:10 Pulse Oximetry 100 08/02/22 13:10 Oxygen Delivery Method Room Air 08/02/22 13:10 GENERAL: Disheveled 42-year-old female HEENT: Head atraumatic,EOMI, pupils reactive, CARDIOVASCULAR: Tachycardic regular RESPIRATORY: Breath sounds equal bilaterally, no wheezes rales or rhonchi. EXTREMITIES: Normal range of motion, no clubbing or edema. Neurovascularly intact NEUROLOGICAL: Alert and oriented x4. SKIN: Warm, dry, no laceration, no petechiae, no rashes or lesions. Psych: Disheveled good eye contact no pressured speech no obvious visual or audio hallucinations no evidence of acute psychosis Course Orders Ordered: ED Orders 08/02/22 13:13 Consult to ACADEMIC AFFAIRS ASSISTANT - Occupational Therapist Home Based Stat 08/02/22 18:09 EKG-12 Lead Stat Vital Signs Vital signs: Vital Signs - 8 hr 08/02/22 13:10 08/02/22 18:05 Temperature 98 F Pulse Rate 128 H 116 H Respiratory Rate 22 Pulse Oximetry 100 99 Oxygen Delivery Method Room Air Room Air MDM - Anxiety ECG Data Interpretation: Sinus rhythm rate [address] changes similar to previous EKGs [facility] Narrative Medical decision making narrative: Patient 42-year-old female frequent visits to the emergency department with complaints of paranoia and anxiety. Community plan has been established for her. No medications or complimentary services are to be given to her in the emergency department. She has extensive outpatient resources which she does not always use to use. Social work today has seen and evaluated her. Known to be tachycardic heart rate does improve EKG is sinus rhythm. Previous visits show hypertension and tachycardia as well Discharge Plan Departure Patient Disposition: Home Clinical Impression: Acute anxiety, Homeless single person Instructions: DI for Anxiety -- Adult Activity Restrictions/Additional Instructions: *You have been diagnosed with homelessness, anxiety *What to do: Screening exam has done in the emergency department. At this time please contact your social worker assistant and pact team for medication and further services *Continue to take medications as directed *Follow up with your primary care provider in 2-3 days or call [phone] *Return to ER if you should have any new, worsening or concerning symptoms Prescriptions: No Action hydroxyzine HCl 25 mg tablet 25 mg PO QID PRN (Reason: anxiety) Qty: 30 0RF olanzapine 10 mg tablet 10 mg PO QAM olanzapine 20 mg tablet 20 mg PO BEDTIME permethrin 5 % cream 1 applic topical Q14D Qty: 60 0RF Rx Instructions: apply second treatment 14 days after first treatment if live lice remain lisinopril 20 mg tablet 20 mg PO DAILY Qty: 30 0RF Referrals: Francisco Lobo ARNP [Primary Care Provider] - Stand Alone Forms: Patient Portal/API
--- NOTE | 2022-08-02 18:12 | CM.SWNOTE ---
BOTTLE WASHING MACHINE OPERATOR Note BOTTLE WASHING MACHINE OPERATOR calls PACT team and leaves at 1300 regarding patient's presentation to ED. BOTTLE WASHING MACHINE OPERATOR calls [facility] at [phone] (Ph.# [phone]) to request medical records regarding patient's care at [facility] and any new rx to coordinate care. BOTTLE WASHING MACHINE OPERATOR speaks with Criss in the medical department and she reports she can fax records, BOTTLE WASHING MACHINE OPERATOR provides fax number. After several hours, no records are received. Per communication with RN, [facility] RN reports that patient's injectable medication was Abilify. Patient is provided hallway room in ED. BOTTLE WASHING MACHINE OPERATOR meets with patient in hallway with ED provider, patient presents as A/Ox3, euthymic, calm and communicative. Patient endorses concern for having a panic attack and holding her chest. Patient is offered EKG, patient is explained by ED provider that the ED cannot provide patient with medication and patient is to f/u with PACT team for medication. Patient endorses she did not see the PACT team today or yesterday, and patient does not report or recall the last time she had interaction with PACT team. Patient endorses her desire to leave ED but states she cannot walk and needs a wheelchair, BOTTLE WASHING MACHINE OPERATOR informs patient that she can leave if she wants to but patient is informed that she does not need a wheelchair and she can ambulate. Plan: Patient to d/c to community upon medical clearance. LU RogersSW
--- NOTE | 2022-08-02 18:20 | PC.NURSE ---
pt got up from [facility] and walked out. ambulated with steady gait
== END 2022-08-02 18:21 | disposition home or self-care (01) ==
PROVIDERS: Emergency Provider Emergency Medicine; Family Provider Family Medicine; PCP Registered Nurse Diabetes Educator
DX: F41.9 Anxiety disorder, unspecified (principal); R00.0 Tachycardia, unspecified
CPT/HCPCS: 93005; 99281; 99282

== ENCOUNTER 2022-08-03 10:44 | Emergency (ER) | payer OTHER, MEDICAID, SELFPAY ==
[2022-08-03 11:07] VITALS: BP 208/118; PULSE 119; RESP 15; TEMP 38.1; O2SAT 97
--- NOTE | 2022-08-03 11:13 | ED_ITS ---
HPI - Psych General Chief Complaint: Fever Stated Complaint: scared, not feeling well Time Seen by Provider: 08/03/22 10:59 Source: patient, RN notes reviewed and old records reviewed Mode of arrival: Ambulatory Limitations: no limitations History of Present Illness HPI Narrative: This is a 42-year-old female with history of chronic schizophrenia and methamphetamine abuse known to myself. Patient presents stating she does not feel well. She does appear to have some external stimuli but interacts appropriately. She states she is felt sort of hot, she states she is had nausea and feels like she is going to vomit. She does not endorse any active vomiting. She denies headache, she denies chest pain or pressure. No shortness of breath. She states she is had a cough. Denies nasal congestion. Denies keila rrhea or constipation. States no abdominal pain but feels nauseated. No back or flank pain. Denies dysuria, urgency or frequency. No vaginal discharge or bleeding. Patient denies any swelling or rashes or skin changes. She notes that she feels scared, she feels that this is a safe place. Patient has thoughts of paranoia and anxiety no suicidal ideation. She presents with a friend that she often travels with here locally. Patient was in senior living for period of time. She is reportedly on a long-acting antipsychotic as a Depo shot once monthly secondary to difficulty regularly taking medication. Related Data Home Medications Medication Instructions Recorded Confirmed olanzapine 10 mg tablet 10 mg PO QAM 05/21/22 06/03/22 olanzapine 20 mg tablet 20 mg PO BEDTIME 05/21/22 06/03/22 Previous Rx's Medication Instructions Recorded hydroxyzine HCl 25 mg tablet 25 mg PO QID PRN anxiety #30 tabs 05/21/22 permethrin 5 % topical cream 1 applic topical Q14D 2 doses #60 06/11/22 grams lisinopril 20 mg tablet 20 mg PO DAILY #30 tabs 07/24/22 Allergies Allergy/AdvReac Type Severity Reaction Status Date / Time No Known Drug Allergies Allergy Verified 08/03/22 11:17 Review of Systems Review of Systems ROS Unobtainable: All systems reviewed & are unremarkable except as noted in HPI and below Patient History Medical History Drug abuse Homeless single person Methamphetamine abuse Schizophrenia Social History Smoking Status: Current every day smoker Smoking Status: Current every day smoker tobacco type: cigarettes alcohol intake frequency: holidays/special occasions only Substance Use Type: methamphetamine and unknown Exam Narrative Exam Narrative: GEN: well nourished, well appearing female, alert and oriented x 3, patient appears to be in mild distress. No diaphoresis. Patient does not feel warm to the touch. HEENT: Atraumatic, pupils are equal round reactive to light, extraocular movements are intact, nares are clear, there is no conjunctival pallor. Throat is clear without any exudates, erythema, tonsillar enlargement or uvular deviation HEART: Slightly tachycardic but regular rate and rhythm without murmur, clicks, rubs. LUNGS:Lungs clear to auscultation, no wheezes, rales, crackles, chest moves symmetrically, no tachypnea or accessory muscle use ABD:bowel sounds normal, soft, non-tender, no guarding, rebound, rigidity, no masses noted, no hepatosplenomegaly, nondistended. :No CVA tenderness MSCL: Non-tender, no muscle atrophy, muscles strength 5/5 upper and lower extremities, full range of motion, normal gait NEURO:CN 2-12 intact, sensation normal SKIN: No rash, erythema or other skin changes PSYCH: No suicidal ideation or intent, paranoia, anxiety Initial Vital Signs Initial Vital Signs: Vital Signs Temperature 100.5 F H 08/03/22 11:07 Pulse Rate 119 H 08/03/22 11:07 Respiratory Rate 15 08/03/22 11:07 Blood Pressure 208/118 H 08/03/22 11:07 Pulse Oximetry 97 08/03/22 11:07 Oxygen Delivery Method Room Air 08/03/22 11:07 Course Orders Ordered: ED Orders 08/03/22 11:11 Blood Culture Stat Complete Blood Count AUTO DIFF Stat Comprehensive Metabolic Panel Stat Lactate (Lactic Acid) Stat NT-proBNP (BNP-Adult 18+) Stat Procalcitonin Stat Troponin & CK Cardiac Panel Stat EKG-12 Lead Stat 08/03/22 11:20 Consult to ADJUNCT PROFESSOR OF LAW - Driver License Reviewing Officer Stat Discontinued Medications Acetaminophen (Acetaminophen 325 Mg Tablet) 975 mg PO NOW ONE Stop: 08/03/22 11:12 Sodium Chloride (Normal Saline 0.9%) 1,000 mls @ 1,000 mls/hr IV BOLUS ONE Stop: 08/03/22 12:10 Ondansetron HCl (Ondansetron 4 Mg Odt) 4 mg SL NOW ONE Stop: 08/03/22 11:12 Vital Signs Vital signs: Vital Signs - 8 hr 08/03/22 11:07 Temperature 100.5 F H Pulse Rate 119 H Respiratory Rate 15 Blood Pressure 208/118 H Pulse Oximetry 97 Oxygen Delivery Method Room Air MDM - Psych MDM Narrative Medical decision making narrative: This is a 42-year-old chronic schizophrenic with known methamphetamine abuse. Patient is moderately cooperative with the exam she did not want to come into the triage room, she is not suicidal she does not have thoughts of harming others she states she feels unsafe she feels nauseated, she is tachycardic and hypertensive she denies active vomiting but does feel nauseated. Patient was not willing to do oral temperature had an axillary temp of a 100.9? F. Patient is reluctant to pursue workup such as labs or urine sample. Discussed with patient would like to do further evaluation at this time she is not willing. Based on examination at this time I do not feel that she is gravely disabled at this time or unable to refuse care. Discharge Plan Departure Patient Disposition: Left Against Medical Advice Clinical Impression: Nausea Activity Restrictions/Additional Instructions: It is recommended that you have further workup with labs, EKG to evaluate for infection or other causes of your nausea and feeling unwell. You can return for further evaluation at any time. Return to the ER for any new or worsening or concerning symptoms. Prescriptions: No Action hydroxyzine HCl 25 mg tablet 25 mg PO QID PRN (Reason: anxiety) Qty: 30 0RF olanzapine 10 mg tablet 10 mg PO QAM olanzapine 20 mg tablet 20 mg PO BEDTIME permethrin 5 % cream 1 applic topical Q14D Qty: 60 0RF Rx Instructions: apply second treatment 14 days after first treatment if live lice remain lisinopril 20 mg tablet 20 mg PO DAILY Qty: 30 0RF Stand Alone Forms: Against Medical Advice
--- NOTE | 2022-08-03 11:28 | PC.NURSE ---
Went to lobby again to bring her into the ED,pt refusing to come into the ED. Pt informed that is she won't come into the ED then she will need to leave the hospital.
--- NOTE | 2022-08-03 11:39 | PC.NURSE ---
Pt refusing to come into the ED. Instructed pt that she will have to leave the hospital if she will not come into the ED. Pt refusing to come into the department and refusing to leave. non urgent dispatch number called. Asked if police would come get her to leave and if she still wont leave to have her trespassed.
== END 2022-08-03 12:11 | disposition left against medical advice (07) ==
PROVIDERS: Emergency Provider Emergency Medicine; Family Provider Family Medicine; PCP Registered Nurse Diabetes Educator
DX: R11.0 Nausea (principal); Z53.29 Procedure and treatment not carried out because of patient's decision for other reasons
CPT/HCPCS: 99281

== ENCOUNTER 2022-08-12 13:06 | Emergency (ER) | payer OTHER, MEDICAID, SELFPAY ==
[2022-08-12 13:11] VITALS: BP 167/100; PULSE 106; RESP 18; TEMP 36.6; O2SAT 99
--- NOTE | 2022-08-12 13:41 | PC.NURSE ---
Pt signed discharge paperwork and then refused to leave the waiting room. Pt became more verbally aggressive w/ refusal to leave. I was able to escort her out of department onto sidewalk. She then refused to walk off property and was calling to other patients / staff in disruptive manner. Unable to verbally redirect despite multiple attempts. Pt started walking and then [facility] I was able to contain her to the vestibule however she continued to call out to other patients / staff in disruptive manner. Unable to verbally redirect. As her tone of voice was escalating in pressure and with increased volume. Called security and [place] [employer] to respond. Able to convince Khoi to go out of doors onto sidewalk and auto door was then locked behind her to prevent re-entry. At this time, security is with patient awaiting [employer] for continued trespass.
--- NOTE | 2022-08-12 14:12 | PC.NURSE ---
Pt encouraged by [employer] to leave the property which she did.
--- NOTE | 2022-08-13 10:06 | ED.RECABL ---
HPI - Recheck/Abnormal Lab/Rx General Chief Complaint: Recheck/Abnormal Lab/Rx Stated Complaint: feels sick Time Seen by Provider: 08/12/22 13:16 Source: patient Mode of arrival: Ambulatory History of Present Illness HPI narrative: 42-year-old female smoker with history of methamphetamine abuse and schizophrenia presents by EMS due to concerns that she is scared and someone as chasing her. She is very well known to myself and other staff. She has no headache or blurred vision. She is had no fever or chills and denies any recent injury. She has not taken her medications today but states that her prescription is waiting for at the pharmacy. She requests a 1st dose now. She is not suicidal or homicidal. Related Data Home Medications Medication Instructions Recorded Confirmed olanzapine 10 mg tablet 10 mg PO QAM 05/21/22 06/03/22 olanzapine 20 mg tablet 20 mg PO BEDTIME 05/21/22 06/03/22 Previous Rx's Medication Instructions Recorded hydroxyzine HCl 25 mg tablet 25 mg PO QID PRN anxiety #30 tabs 05/21/22 permethrin 5 % topical cream 1 applic topical Q14D 2 doses #60 06/11/22 grams lisinopril 20 mg tablet 20 mg PO DAILY #30 tabs 07/24/22 Allergies Allergy/AdvReac Type Severity Reaction Status Date / Time No Known Drug Allergies Allergy Verified 08/13/22 07:44 Review of Systems Review of Systems Narrative: GENERAL: Denies chills, fatigue, malaise, fever, sweats. HEENT: Denies sinus pain, ear pain, sore throat, difficulty swallowing, dizziness. RESPIRATORY: Denies dyspnea, cough, wheezing, hemoptysis, sputum. CARDIOVASCULAR: Denies chest pain, palpitations, orthopnea, edema, GASTROINTESTINAL: Denies nausea, vomiting, abdominal pain, diarrhea, constipation, melena. : Denies dysuria, frequency, incontinence, hematuria, urinary retention. MUSCULOSKELETAL: denies weakness, joint pain, or bony pain SKIN: Denies rash, skin lesions, or other NEUROLOGIC: Denies weakness, headache, numbness, change in speech, confusion, seizures, incoordination. PSYCHIATRIC: No concerning psychosocial issues. 12 point review of systems is negative except for those stated above Patient History Medical History Drug abuse Homeless single person Methamphetamine abuse Schizophrenia Social History Smoking Status: Current every day smoker Smoking Status: Current every day smoker tobacco type: cigarettes alcohol intake frequency: holidays/special occasions only Substance Use Type: methamphetamine and unknown Exam Narrative Exam Narrative: GEN: AOx3 and in mild distress EYES: Pupils are equal, round, and reactive to light and accommodation. Extraoccular muscles are intact bilaterally. There is no subconjunctival hemorrhage or exudate. CHEST: Lungs are clear to auscultation bilaterally and free of wheezes, rales, or rhonchi. Heart rate is regular rhythm, there are no murmurs, clicks, rubs, or gallops. There is no chest wall tenderness. ABD: Abdomen is soft and nontender. There is no guarding or rebound. Bowel sounds are normal in all 4 quadrants. There is no mass or organomegaly. EXT: Full painless ROM of all extremities with no loss of sensation or strength. SKIN: Warm, pink, and dry. No erythema or rash Initial Vital Signs Initial Vital Signs: Vital Signs Temperature 97.8 F 08/12/22 13:11 Pulse Rate 106 H 08/12/22 13:11 Respiratory Rate 18 08/12/22 13:11 Blood Pressure 167/100 H 08/12/22 13:11 Pulse Oximetry 99 08/12/22 13:11 Oxygen Delivery Method Room Air 08/12/22 13:11 MDM - Recheck/Abnormal Lab/Rx MDM Narrative Medical decision making narrative: Patient at apparent baseline, well-known to myself and staff. She has no suicidal or homicidal ideations. She is alert and oriented. She is requesting a dose of her medications but has a prescription waiting for her at the pharmacy. She is had a medical screening exam and understands that there is no evidence of any life-threatening medical condition that would require a specific intervention at this time. Discharge Plan Departure Patient Disposition: Home Clinical Impression: Methamphetamine abuse, Chronic schizophrenic Instructions: DI for Schizophrenia Activity Restrictions/Additional Instructions: *You have been diagnosed with [medication noncompliance, chronic schizophrenia, methamphetamine abuse] *What to do: *Please continue to take your regular medications as directed. As we discussed per your statement you have prescriptions waiting for you at [facility]. Please proceed directly from here to the pharmacy to pick the medications up *Please follow up with your primary care provider in 2-3 days, call for an appointment. Let them know you were seen in the Emergency Department and that we ask that you be seen in follow up. We will electronically transmit a record of today's note if your PCP is in our system *Return to Emergency Department if you should have any new, worsening or concerning symptoms, such as [fever greater than 101 F, shaking chills, worsening pain, persistent vomiting or other bothersome symptoms] Prescriptions: No Action hydroxyzine HCl 25 mg tablet 25 mg PO QID PRN (Reason: anxiety) Qty: 30 0RF olanzapine 10 mg tablet 10 mg PO QAM olanzapine 20 mg tablet 20 mg PO BEDTIME permethrin 5 % cream 1 applic topical Q14D Qty: 60 0RF Rx Instructions: apply second treatment 14 days after first treatment if live lice remain lisinopril 20 mg tablet 20 mg PO DAILY Qty: 30 0RF Referrals: Francisco Lobo ARNP [Primary Care Provider] - Stand Alone Forms: Patient Portal/API
== END 2022-08-12 14:12 | disposition home or self-care (01) ==
PROVIDERS: Emergency Provider Emergency Medicine; Family Provider Family Medicine; PCP Registered Nurse Diabetes Educator
DX: F15.10 Other stimulant abuse, uncomplicated (principal); F20.9 Schizophrenia, unspecified
CPT/HCPCS: 99281

== ENCOUNTER 2022-08-13 03:50 | Emergency (ER) | payer OTHER, MEDICAID, SELFPAY ==
[2022-08-13 03:52] VITALS: BP 176/106; PULSE 126; RESP 22; TEMP 36.5; O2SAT 98; BMI 25.0
--- NOTE | 2022-08-13 03:59 | ED.PSYCH ---
HPI - Psych General Chief Complaint: Anxiety Stated Complaint: scared Time Seen by Provider: 08/13/22 03:59 History of Present Illness HPI Narrative: Patient 42-year-old female chronic schizophrenia paranoia methamphetamine abuse well known to this facility and myself presenting today with increased paranoia and feeling afraid. He was seen here yesterday became verbally abusive with staff and was almost trespassed. Presents today after being found outside the hotel yelling and screaming. Police encouraged her to come to the ED for evaluation EMS reports that it took her 20 minutes to get the ambulance. She chronically feels afraid. She has multiple community services she reports that she has not had her medication about 10 days, difficult to confirm this. She is on a long thing antipsychotic a Depo shot once monthly. Related Data Home Medications Medication Instructions Recorded Confirmed olanzapine 10 mg tablet 10 mg PO QAM 05/21/22 06/03/22 olanzapine 20 mg tablet 20 mg PO BEDTIME 05/21/22 06/03/22 Previous Rx's Medication Instructions Recorded hydroxyzine HCl 25 mg tablet 25 mg PO QID PRN anxiety #30 tabs 05/21/22 permethrin 5 % topical cream 1 applic topical Q14D 2 doses #60 06/11/22 grams lisinopril 20 mg tablet 20 mg PO DAILY #30 tabs 07/24/22 Allergies Allergy/AdvReac Type Severity Reaction Status Date / Time No Known Drug Allergies Allergy Verified 08/03/22 11:17 Review of Systems Review of Systems ROS Unobtainable: All systems reviewed & are unremarkable except as noted in HPI and below Patient History Medical History Drug abuse Homeless single person Methamphetamine abuse Schizophrenia Social History Smoking Status: Current every day smoker Smoking Status: Current every day smoker tobacco type: cigarettes alcohol intake frequency: holidays/special occasions only Substance Use Type: methamphetamine and unknown Exam Initial Vital Signs Initial Vital Signs: Vital Signs Temperature 97.7 F 08/13/22 03:52 Pulse Rate 126 H 08/13/22 03:52 Respiratory Rate 22 08/13/22 03:52 Blood Pressure 176/106 H 08/13/22 03:52 Pulse Oximetry 98 08/13/22 03:52 Oxygen Delivery Method Room Air 08/13/22 03:52 GENERAL: Disheveled, poor hygiene CARDIOVASCULAR: peripheral pulses in tact, cap refill <2 sec RESPIRATORY: No respiratory distress, speaks in full sentences without difficulty EXTREMITIES: Normal range of motion, no clubbing or edema. Neurovascularly intact NEUROLOGICAL: Cranial nerves II through XII grossly intact. Normal gait and speech. SKIN: Warm, dry, no petechiae, no rashes or lesions. Course Vital Signs Vital signs: Vital Signs - 8 hr 08/13/22 03:52 Temperature 97.7 F Pulse Rate 126 H Respiratory Rate 22 Blood Pressure 176/106 H Pulse Oximetry 98 Oxygen Delivery Method Room Air MDM - Psych MDM Narrative Medical decision making narrative: Patient 42-year-old female presenting today of paranoia. This is a chronically her complaint of not feeling safe frequently feeling stay for in the emergency department. He is wanting to be hospitalized. However after the community meeting ED is strongly encouraged not to hospital is her. At this time she does not seem any worse than her baseline in my opinion does not need hospitalization. sHe is not gravely disabled. She is frequently hypertensive and tachycardic she is today. She is also getting quite upset that she will not be. Discharge Plan Departure Patient Disposition: Home Clinical Impression: Chronic schizophrenic Activity Restrictions/Additional Instructions: I am sorry that you are feeling scared this morning. It is important that you take her medication and avoid methamphetamine.? Your medication helps with your sense of security and methamphetamine always makes you feel far more anxious. You have had a medical screening examination in the emergency department.? I did leave a voice message with your pact team to try and find you later this morning to see if they can offer additional assistance.? Unfortunately at this time you do not meet criteria for hospitalization either medical or psychiatric and you do need to follow through with outpatient plans including taking routine medications and avoiding methamphetamine. I wish you the best Prescriptions: No Action hydroxyzine HCl 25 mg tablet 25 mg PO QID PRN (Reason: anxiety) Qty: 30 0RF olanzapine 10 mg tablet 10 mg PO QAM olanzapine 20 mg tablet 20 mg PO BEDTIME permethrin 5 % cream 1 applic topical Q14D Qty: 60 0RF Rx Instructions: apply second treatment 14 days after first treatment if live lice remain lisinopril 20 mg tablet 20 mg PO DAILY Qty: 30 0RF Referrals: Francisco Lobo ARNP [Primary Care Provider] - Stand Alone Forms: Patient Portal/API
--- NOTE | 2022-08-13 04:40 | PC.NURSE ---
0407: Patient dissatisfied with plan of care to discharge after MD evaluation. Patient voluntarily left triage room and went to ED lobby, sitting in chair next two security desk. Belongings given to patient and patient instructed that she needs to leave facility. Patient refused to leave and staff explained to patient that police would be called if she did not leave as instructed. Security and nursing secretary present during this time. Police arrived and attempted to encouraged patient to leave facility. After multiple unsuccessful attempts police explained to patient that she would be arrested for trespassing if she did not leave facility as instructed. Patient continued to refuse. 0437: Patient arrested in ED lobby and removed from facility by two [employer] officers.
--- NOTE | 2022-08-13 06:48 | PC.NURSE ---
LATE ENTRY This RN was notified of patient refusal to leave facility. Local PD had been called prior to this RN's arrival. Patient belligerent and uncooperative. Local PD discussed avoiding escalation to arrest and multiple attempts were made by all parties to encourage patient to leave on their own terms and continue with her established care plan. These attempts failed. Patient was forcibly removed from the facility by PD at 0427. Debriefed with staff involved.
== END 2022-08-13 04:07 | disposition home or self-care (01) ==
PROVIDERS: Emergency Provider Emergency Medicine; Family Provider Family Medicine; PCP Registered Nurse Diabetes Educator
DX: F20.9 Schizophrenia, unspecified (principal)
CPT/HCPCS: 99281

== ENCOUNTER 2022-08-13 07:41 | Emergency (ER) | payer OTHER, MEDICAID, SELFPAY ==
[2022-08-13 07:44] VITALS: BP 164/110; PULSE 94; RESP 20; TEMP 37; O2SAT 99; BMI 24.7
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
--- NOTE | 2022-08-13 08:11 | PC.NURSE ---
went to give patient warm blankets. she requested to have bed moved closer to door way. once bed was moved, pt then states she wants to me wait with her in the room. explained to patient that we cannot wait with her. pt refuses to sit in her room but also refuses to sit in lobby. pt is standing in hallway of ER
--- NOTE | 2022-08-13 08:22 | PC.NURSE ---
Patient reports she does not feel safe in RM13 despite staff reassurance and proximity. Pt opts to immigration patrol inspector the hallway, educated pt for privacy and safety reason she cannot remain in hallway. Pt offered to stay in RM13 or wait for results in waiting area. Pt reports she feels safer in waiting room, pt ambulated independently to lobby.
[2022-08-13 08:27] LABS: Add Manual Diff / Slide Review NO; Basophils Absolute Auto 100 /uL (0-100); Basophils Percent Auto 0.5 % (0-2); Eosinophils Absolute Auto 100 /uL (0-450); Eosinophils Percent Auto 0.9 % (2-4); Hematocrit 36.8 % (36-46); Hemoglobin 12.2 g/dL (12.0-16.0); Lymphocytes Absolute Auto 1300 /uL (1100-4500); Lymphocytes Percent Auto 10.1 % (25-40); Mean Corpuscular HGB Conc 33.1 % (30-36); Mean Corpuscular Hemoglobin 27.1 PG (26-34); Mean Corpuscular Volume 81.9 fL (80-100); Monocytes Absolute Auto 1100 /uL (0-900); Monocytes Percent Auto 8.6 % (3-14); Neutrophils Absolute Auto 10700 /uL (1500-7000); Neutrophils Percent Auto 79.9 % (50-75); Platelet Count 520 X10^3/uL (150-400); Red Blood Cell Count 4.49 X10^6/uL (4.0-5.2); Red Cell Distribution Width 16.6 % (11.6-14.8); White Blood Cell Count 13.3 X10^3/uL (4.5-11.0)
[2022-08-13 08:35] LABS: Prothrombin Time 11.6 SECONDS (10.1-12.7)
[2022-08-13 08:38] LABS: PTT Partial Thromboplastin Tim 30 SECONDS (26-36)
[2022-08-13 08:43] LABS: Alanine Aminotransferase 16 IU/L (<35); Albumin 4.5 g/dL (3.5-5.0); Albumin Globulin Ratio 1.3 (1.0-2.8); Alkaline Phosphatase 104 U/L (38-126); Aspartate Aminotransferase 23 IU/L (14-36); BUN Creatinine Ratio 19.2 (6-22); Bilirubin Total 1.1 mg/dL (0.2-1.3); Blood Urea Nitrogen 15 mg/dL (7-17); Calcium 8.8 mg/dL (8.4-10.2); Carbon Dioxide 28 mmol/L (22-32); Chloride 99 mmol/L (98-107); Estimated Glomerular Filt Rate > 60 mL/min (>60); Ethanol (ETOH) < 10 mg/dL; Globulin 3.5 g/dL (1.7-4.1); Glucose 103 mg/dL (70-100); HEMOLYSIS < 15 (0-50); Potassium 3.3 mmol/L (3.4-5.1); Sodium 135 mmol/L (137-145)
[2022-08-13 08:54] LABS: Pregnancy Test Serum,Qual Negative (Negative)
[2022-08-13 09:31] LABS: TSH w/ Reflex to FT4 2.51 uIU/mL (0.47-4.68)
--- NOTE | 2022-08-13 10:07 | PC.NURSE ---
Pt in waiting room w/ agitation. Refused to re-enter emergency room. Discussed w/ Dr. Coleman who offered pt medication. I asked pt to return to room 13 for medication. She agreed if she was able to go by w/c. I got her a w/c and proceeded to wheel her to room 13 when she started screaming and grabbing at my arms and kicking. I placed her on the floor for her protection and called gregg guevara. Dr. Coleman to pt who was screaming she wanted to leave. Dr. Coleman informed her she could leave. Escorted to waiting room where she continued to request assistance with 6 bags of belongings. Asking questions to get people's attention and to assist her in carrying her belongings, walk with me I reinforced boundaries. Pt continued to voice she did not want to harm herself or others. Security escorting pt as she states she wants to make a doctors appointment. Approximately 45 min of 1:1 nursing time spent during this interaction.
== END 2022-08-13 10:00 | disposition home or self-care (01) ==
PROVIDERS: Emergency Provider Emergency Medicine; Family Provider Family Medicine; PCP Registered Nurse Diabetes Educator
DX: F20.9 Schizophrenia, unspecified (principal); F22 Delusional disorders
CPT/HCPCS: 36415; 80053; 80320; 84443; 84703; 85025; 85610; 85730; 99281; 99283

== ENCOUNTER 2022-08-29 00:57 | Emergency (ER) | payer OTHER, MEDICAID, SELFPAY ==
[2022-08-29 01:00] VITALS: BP 176/101; PULSE 116; RESP 20; TEMP 36.9; O2SAT 99; BMI 24.6
--- NOTE | 2022-08-29 01:21 | ED_ITS ---
HPI - General Adult General Chief complaint: Chest Pain Stated complaint: SICK Time Seen by Provider: 08/29/22 01:08 Source: patient Mode of arrival: Ambulatory Limitations: no limitations History of Present Illness HPI narrative: 42-year-old female smoker with history of methamphetamine abuse and schizophrenia presents on foot complaining that she is scared and feeling some palpitations in her chest. She is well-known to the department. No other acute changes appreciated review of systems. She is denying shortness of breath, no nausea no vomiting no other GI or urinary symptoms. No chest pain or pressure. No passing out. Patient denies any swelling. She states she is taking her medications. She states she is not been using methamphetamines recently. She denies suicidal homicidal ideation. She was contacted by EMS earlier today she would asked for transport here, they offered to walk her over from [facility]. Patient refused and then presented later this evening. Related Data Home Medications Medication Instructions Recorded Confirmed olanzapine 10 mg tablet 10 mg PO QAM 05/21/22 06/03/22 olanzapine 20 mg tablet 20 mg PO BEDTIME 05/21/22 06/03/22 Previous Rx's Medication Instructions Recorded hydroxyzine HCl 25 mg tablet 25 mg PO QID PRN anxiety #30 tabs 05/21/22 permethrin 5 % topical cream 1 applic topical Q14D 2 doses #60 06/11/22 grams lisinopril 20 mg tablet 20 mg PO DAILY #30 tabs 07/24/22 Allergies Allergy/AdvReac Type Severity Reaction Status Date / Time No Known Drug Allergies Allergy Verified 08/13/22 07:44 Review of Systems Review of Systems ROS Unobtainable: All systems reviewed & are unremarkable except as noted in HPI and below Patient History Medical History Drug abuse Homeless single person Methamphetamine abuse Schizophrenia Social History Smoking Status: Current every day smoker Smoking Status: Current every day smoker tobacco type: cigarettes alcohol intake frequency: holidays/special occasions only Substance Use Type: methamphetamine and unknown Exam Narrative Exam Narrative: GENERAL: Alert, oriented, disheveled female in mild distress HEENT: Head normocephalic, atraumatic, EOMI, pupils reactive, face symmetric, moist mucous membranes NECK: Supple, full range of motion CARDIOVASCULAR: Regular rate and rhythm without murmurs, rubs or gallops. RESPIRATORY: Breath sounds equal bilaterally, no wheezes rales or rhonchi. No tachypnea, no accessory muscle use. Speaks in full sentences. ABDOMEN: Soft, nontender. Normoactive bowel sounds all 4 quadrants. No guarding or rebound, rigidity, no mass : No CVA tenderness EXTREMITIES: Normal range of motion, no edema bilateral lower extremities. Neurovascularly intact NEUROLOGICAL: Cranial nerves II through XII grossly intact. Moving all e xtremities SKIN: Warm, dry, no petechiae, no rashes or lesions. Initial Vital Signs Initial Vital Signs: Vital Signs Temperature 98.5 F 08/29/22 01:00 Pulse Rate 116 H 08/29/22 01:00 Respiratory Rate 20 08/29/22 01:00 Blood Pressure 176/101 H 08/29/22 01:00 Pulse Oximetry 99 08/29/22 01:00 Oxygen Delivery Method Room Air 08/29/22 01:00 Course Orders Ordered: ED Orders 08/29/22 01:09 EKG-12 Lead Stat Vital Signs Vital signs: Vital Signs - 8 hr 08/29/22 01:00 Temperature 98.5 F Pulse Rate 116 H Respiratory Rate 20 Blood Pressure 176/101 H Pulse Oximetry 99 Oxygen Delivery Method Room Air Medical Decision Making ECG Data Attestation: I personally reviewed and interpreted this ECG as follows: Interpretation: Sinus tachycardia rate of 109 FL 156 QRS of 92 and QTC of 44. No acute [address] elevation depression appreciated. [facility] Narrative Medical decision making narrative: Patient comes in with complaint of feeling scared, some palpitations. Heart rate slightly elevated, her blood pressure is actually improved from some of her prior visits. No chest pain shortness of breath or other changes. Patient does not admit to any methamphetamine use but noted on her prior visits that she has been positive on her UDS for the past 2 years on every visit. Patient is feeling scared having similar symptoms she typically does she does not appear to be acutely changed from her baseline. Patient felt appropriate for discharge. Discharge Plan Departure Patient Disposition: Home Clinical Impression: Chronic schizophrenia Activity Restrictions/Additional Instructions: Please follow-up with the PACT team to continue your medications and monthly injection. Please follow-up in the next several days. Call for an appointment. You can return for any new, worsening or concerning symptoms fevers new chest pain, shortness of breath, persistent vomiting, new swelling in your extremities or other new or concerning changes. Prescriptions: No Action hydroxyzine HCl 25 mg tablet 25 mg PO QID PRN (Reason: anxiety) Qty: 30 0RF olanzapine 10 mg tablet 10 mg PO QAM olanzapine 20 mg tablet 20 mg PO BEDTIME permethrin 5 % cream 1 applic topical Q14D Qty: 60 0RF Rx Instructions: apply second treatment 14 days after first treatment if live lice remain lisinopril 20 mg tablet 20 mg PO DAILY Qty: 30 0RF Referrals: Francisco Lobo ARNP [Primary Care Provider] - Stand Alone Forms: Patient Portal/API
== END 2022-08-29 01:32 | disposition home or self-care (01) ==
PROVIDERS: Emergency Provider Emergency Medicine; Family Provider Family Medicine; PCP Registered Nurse Diabetes Educator
DX: R00.2 Palpitations (principal); F20.89 Other schizophrenia
CPT/HCPCS: 93005; 93010; 99281; 99282

== ENCOUNTER 2022-09-10 05:43 | Emergency (ER) | payer OTHER, MEDICAID, SELFPAY ==
[2022-09-10 05:46] VITALS: BP 154/78; PULSE 99; RESP 16; TEMP 36.4; O2SAT 99; BMI 21.5
--- NOTE | 2022-09-10 06:07 | ED.GENADULT ---
HPI - General Adult <Isaiah Capps DO - Last Filed: 09/10/22 17:56> General Chief complaint: Weakness Stated complaint: Feels sick Time Seen by Provider: 09/10/22 05:46 Source: patient Mode of arrival: EMS History of Present Illness HPI narrative: Patient is a 42-year-old female. Well known to myself in this emergency department. She is brought in by EMS from the [facility] right across the street from the emergency department for evaluation of ?not feeling well? patient states that she ?feels sick? she could not expand on this any further. She states that she needs to be admitted to a mental health facility because ?I feel like someone was chasing me? she also states ?I can not take care of myself? she states ?I do not feel safe? patient denies suicidal ideation. This is similar to presentations that she has had in the past. She states she has not been in contact with the PACT team. Related Data Home Medications Medication Instructions Recorded Confirmed olanzapine 10 mg tablet 10 mg PO QAM 05/21/22 06/03/22 olanzapine 20 mg tablet 20 mg PO BEDTIME 05/21/22 06/03/22 Previous Rx's Medication Instructions Recorded hydroxyzine HCl 25 mg tablet 25 mg PO QID PRN anxiety #30 tabs 05/21/22 permethrin 5 % topical cream 1 applic topical Q14D 2 doses #60 06/11/22 grams lisinopril 20 mg tablet 20 mg PO DAILY #30 tabs 07/24/22 Allergies Allergy/AdvReac Type Severity Reaction Status Date / Time No Known Drug Allergies Allergy Verified 09/02/22 08:23 Review of Systems <Isaiah Capps DO - Last Filed: 09/10/22 17:56> Cardiovascular Comments: Denies chest pain Respiratory Comments: Denies shortness of breath Psychiatric Psychiatric: Reports system reviewed and no additional complaints, except as documented Patient History <DO Crissy Horton Last Filed: 09/10/22 17:56> Medical History Drug abuse Homeless single person Methamphetamine abuse Schizophrenia Social History Smoking Status: Current every day smoker Smoking Status: Current every day smoker tobacco type: cigarettes alcohol intake frequency: holidays/special occasions only Substance Use Type: methamphetamine and unknown Exam <Isaiah Capps DO - Last Filed: 09/10/22 17:56> Initial Vital Signs Initial Vital Signs: Vital Signs Temperature 97.6 F 09/10/22 05:46 Pulse Rate 99 H 09/10/22 05:46 Respiratory Rate 16 09/10/22 05:46 Blood Pressure 154/78 H 09/10/22 05:46 Pulse Oximetry 99 09/10/22 05:46 Oxygen Delivery Method Room Air 09/10/22 05:46 HENMT Head: normal to inspection and normocephalic Resp Effort & Inspection: normal respiratory effort Cardio Rate: regular rate Neuro General: patient alert and patient awake Psych Other: Patient is disheveled. She is calm. Would not elaborate on why she is feeling ?sick? denies suicide ideation. <Cb Weber MD - Last Filed: 09/10/22 11:28> Initial Vital Signs Initial Vital Signs: Vital Signs Temperature 97.6 F 09/10/22 05:46 Pulse Rate 99 H 09/10/22 05:46 Respiratory Rate 16 09/10/22 05:46 Blood Pressure 154/78 H 09/10/22 05:46 Pulse Oximetry 99 09/10/22 05:46 Oxygen Delivery Method Room Air 09/10/22 05:46 Course <Isaiah Capps DO - Last Filed: 09/10/22 17:56> Orders Ordered: ED Orders 09/10/22 06:27 Complete Blood Count AUTO DIFF Stat Comprehensive Metabolic Panel Stat Ethanol (ETOH) Stat Lipase Stat Test Serum,Qual Stat Thyroid Stimulating Hormone Stat 09/10/22 06:49 Consult to [facility] [place] - Guidance Secretary Stat 09/10/22 07:28 Urine Drug Screen, Rapid Stat 09/10/22 08:00 COVID19 -Nasal RAPID Stat Vital Signs Vital signs: Vital Signs - 8 hr 09/10/22 05:46 Temperature 97.6 F Pulse Rate 99 H Respiratory Rate 16 Blood Pressure 154/78 H Pulse Oximetry 99 Oxygen Delivery Method Room Air <Cb Weber MD - Last Filed: 09/10/22 11:28> Orders Ordered: ED Orders 09/10/22 06:27 Complete Blood Count AUTO DIFF Stat Comprehensive Metabolic Panel Stat Ethanol (ETOH) Stat Lipase Stat Test Serum,Qual Stat Thyroid Stimulating Hormone Stat 09/10/22 06:49 Consult to [employer] - Guidance Secretary Stat 09/10/22 07:28 Urine Drug Screen, Rapid Stat 09/10/22 08:00 COVID19 -Nasal RAPID Stat Vital Signs Vital signs: Vital Signs - 8 hr 09/10/22 05:46 Temperature 97.6 F Pulse Rate 99 H Respiratory Rate 16 Blood Pressure 154/78 H Pulse Oximetry 99 Oxygen Delivery Method Room Air Medical Decision Making <Isaiah Capps DO - Last Filed: 09/10/22 17:56> Lab Data 09/10/22 06:27 09/10/22 06:27 Labs: Lab Results 09/10/22 09/10/22 09/10/22 Range/Units 06:27 06:27 06:27 WBC 6.7 (4.5-11.0) X10^3/uL RBC 4.43 (4.0-5.2) X10^6/uL Hgb 11.9 L (12.0-16.0) g/dL Hct 35.9 L (36-46) % MCV 81.2 (80-100) fL MCH 26.8 (26-34) PG MCHC 33.0 (30-36) % RDW 16.8 H (11.6-14.8) % Plt Count 517 H (150-400) X10^3/uL Neut % (Auto) 73.3 (50-75) % Lymph % (Auto) 17.3 L (25-40) % Davidson % (Auto) 6.9 (3-14) % Eos % (Auto) 1.7 L (2-4) % Baso % (Auto) 0.8 (0-2) % Neut # (Auto) 4900 (9929-0893) /uL Lymph # (Auto) 1200 (5937-3184) /uL Davidson # (Auto) 500 (0-900) /uL Eos # (Auto) 100 (0-450) /uL Baso # (Auto) 100 (0-100) /uL Sodium 136 L (137-145) mmol/L Potassium 3.6 (3.4-5.1) mmol/L Chloride 100 (98-107) mmol/L Carbon Dioxide 27 (22-32) mmol/L BUN 14 (7-17) mg/dL Creatinine 0.66 (0.52-1.04) mg/dL Estimated GFR > 60 (>60) mL/min BUN/Creatinine Ratio 21.2 (6-22) Glucose 107 H (70-100) mg/dL Calcium 8.7 (8.4-10.2) mg/dL Total Bilirubin 0.8 (0.2-1.3) mg/dL AST 22 (14-36) IU/L ALT 16 (<35) IU/L Alkaline Phosphatase 87 (38-126) U/L Total Protein 8.1 (6.3-8.2) g/dL Albumin 4.4 (3.5-5.0) g/dL Globulin 3.7 (1.7-4.1) g/dL Albumin/Globulin Ratio 1.2 (1.0-2.8) Lipase 68 (23-300) U/L TSH 3.08 (0.47-4.68) uIU/mL Serum , Qual (Negative) U Opiates 300ng/mL cut (Negative) Ur Oxycodone Screen (Negative) Urine Methadone Screen (Negative) Ur Barbiturates Screen (Negative) U Tricyclic Antidepress (Negative) Ur Phencyclidine Scrn (Negative) Ur Amphetamines Screen (Negative) U Methamphetamines Scrn (Negative) Ur MDMA Scrn (Ecstasy) (Negative) U Benzodiazepines Scrn (Negative) Urine Cocaine Screen (Negative) U Marijuana (THC) Screen (Negative) Ethyl Alcohol < 10 ( - 10) mg/dL SARS-CoV-2 (PCR) (Negative) 09/10/22 09/10/22 09/10/22 Range/Units 06:27 07:28 08:00 WBC (4.5-11.0) X10^3/uL RBC (4.0-5.2) X10^6/uL Hgb (12.0-16.0) g/dL Hct (36-46) % MCV (80-100) fL MCH (26-34) PG MCHC (30-36) % RDW (11.6-14.8) % Plt Count (150-400) X10^3/uL Neut % (Auto) (50-75) % Lymph % (Auto) (25-40) % Davidson % (Auto) (3-14) % Eos % (Auto) (2-4) % Baso % (Auto) (0-2) % Neut # (Auto) (3210-2681) /uL Lymph # (Auto) (8654-5605) /uL Davidson # (Auto) (0-900) /uL Eos # (Auto) (0-450) /uL Baso # (Auto) (0-100) /uL Sodium (137-145) mmol/L Potassium (3.4-5.1) mmol/L Chloride (98-107) mmol/L Carbon Dioxide (22-32) mmol/L BUN (7-17) mg/dL Creatinine (0.52-1.04) mg/dL Estimated GFR (>60) mL/min BUN/Creatinine Ratio (6-22) Glucose (70-100) mg/dL Calcium (8.4-10.2) mg/dL Total Bilirubin (0.2-1.3) mg/dL AST (14-36) IU/L ALT (<35) IU/L Alkaline Phosphatase (38-126) U/L Total Protein (6.3-8.2) g/dL Albumin (3.5-5.0) g/dL Globulin (1.7-4.1) g/dL Albumin/Globulin Ratio (1.0-2.8) Lipase (23-300) U/L TSH (0.47-4.68) uIU/mL Serum , Qual Negative (Negative) U Opiates 300ng/mL cut Negative (Negative) Ur Oxycodone Screen Negative (Negative) Urine Methadone Screen Negative (Negative) Ur Barbiturates Screen Negative (Negative) U Tricyclic Antidepress Negative (Negative) Ur Phencyclidine Scrn Negative (Negative) Ur Amphetamines Screen Positive H (Negative) U Methamphetamines Scrn Positive H (Negative) Ur MDMA Scrn (Ecstasy) Positive H (Negative) U Benzodiazepines Scrn Negative (Negative) Urine Cocaine Screen Negative (Negative) U Marijuana (THC) Screen Negative (Negative) Ethyl Alcohol ( - 10) mg/dL SARS-CoV-2 (PCR) Negative (Negative) Urine Dip Bedside Urine Glucose Negative Bedside Urine Bilirubin - Negative Bedside Urine Ketone - Negative Urine Specific [place] 1.020 Bedside Urine Occult Blood - Negative Bedside Urine pH 6.0 Bedside Urine Protein +/- 15 Bedside Urine Urobilinogen - Negative Bedside Urine Nitrite - Negative Bedside Urine Leukocytes - Negative Esterase Point of care testing: Urine Dip Bedside Urine Glucose Negative Bedside Urine Bilirubin - Negative Bedside Urine Ketone - Negative Urine Specific [place] 1.020 Bedside Urine Occult Blood - Negative Bedside Urine pH 6.0 Bedside Urine Protein +/- 15 Bedside Urine Urobilinogen - Negative Bedside Urine Nitrite - Negative Bedside Urine Leukocytes - Negative Esterase MDM Narrative Medical decision making narrative: Patient does have a known history of schizophrenia and also drug abuse. Her presentation today is similar to prior. She is disheveled but appears at baseline. She is calm. She denies SI. She states that she feels like she needs admitted to the hospital. She states that she is paranoid. Feels like people were chasing her. Is seeing and hearing things. Labs are obtained. Attempted to contact the PACT team but there was no answer at the phone number. Care turned over to day provider to continue to observe until disposition. <Cb Weber MD - Last Filed: 09/10/22 11:28> Lab Data Labs: Lab Results 09/10/22 09/10/22 09/10/22 Range/Units 06:27 06:27 06:27 WBC 6.7 (4.5-11.0) X10^3/uL RBC 4.43 (4.0-5.2) X10^6/uL Hgb 11.9 L (12.0-16.0) g/dL Hct 35.9 L (36-46) % MCV 81.2 (80-100) fL MCH 26.8 (26-34) PG MCHC 33.0 (30-36) % RDW 16.8 H (11.6-14.8) % Plt Count 517 H (150-400) X10^3/uL Neut % (Auto) 73.3 (50-75) % Lymph % (Auto) 17.3 L (25-40) % Davidson % (Auto) 6.9 (3-14) % Eos % (Auto) 1.7 L (2-4) % Baso % (Auto) 0.8 (0-2) % Neut # (Auto) 4900 (5472-6628) /uL Lymph # (Auto) 1200 (1677-3983) /uL Davidson # (Auto) 500 (0-900) /uL Eos # (Auto) 100 (0-450) /uL Baso # (Auto) 100 (0-100) /uL Sodium 136 L (137-145) mmol/L Potassium 3.6 (3.4-5.1) mmol/L Chloride 100 (98-107) mmol/L Carbon Dioxide 27 (22-32) mmol/L BUN 14 (7-17) mg/dL Creatinine 0.66 (0.52-1.04) mg/dL Estimated GFR > 60 (>60) mL/min BUN/Creatinine Ratio 21.2 (6-22) Glucose 107 H (70-100) mg/dL Calcium 8.7 (8.4-10.2) mg/dL Total Bilirubin 0.8 (0.2-1.3) mg/dL AST 22 (14-36) IU/L ALT 16 (<35) IU/L Alkaline Phosphatase 87 (38-126) U/L Total Protein 8.1 (6.3-8.2) g/dL Albumin 4.4 (3.5-5.0) g/dL Globulin 3.7 (1.7-4.1) g/dL Albumin/Globulin Ratio 1.2 (1.0-2.8) Lipase 68 (23-300) U/L TSH 3.08 (0.47-4.68) uIU/mL Serum , Qual (Negative) U Opiates 300ng/mL cut (Negative) Ur Oxycodone Screen (Negative) Urine Methadone Screen (Negative) Ur Barbiturates Screen (Negative) U Tricyclic Antidepress (Negative) Ur Phencyclidine Scrn (Negative) Ur Amphetamines Screen (Negative) U Methamphetamines Scrn (Negative) Ur MDMA Scrn (Ecstasy) (Negative) U Benzodiazepines Scrn (Negative) Urine Cocaine Screen (Negative) U Marijuana (THC) Screen (Negative) Ethyl Alcohol < 10 ( - 10) mg/dL SARS-CoV-2 (PCR) (Negative) 09/10/22 09/10/22 09/10/22 Range/Units 06:27 07:28 08:00 WBC (4.5-11.0) X10^3/uL RBC (4.0-5.2) X10^6/uL Hgb (12.0-16.0) g/dL Hct (36-46) % MCV (80-100) fL MCH (26-34) PG MCHC (30-36) % RDW (11.6-14.8) % Plt Count (150-400) X10^3/uL Neut % (Auto) (50-75) % Lymph % (Auto) (25-40) % Davidson % (Auto) (3-14) % Eos % (Auto) (2-4) % Baso % (Auto) (0-2) % Neut # (Auto) (7489-6865) /uL Lymph # (Auto) (6981-4220) /uL Davidson # (Auto) (0-900) /uL Eos # (Auto) (0-450) /uL Baso # (Auto) (0-100) /uL Sodium (137-145) mmol/L Potassium (3.4-5.1) mmol/L Chloride (98-107) mmol/L Carbon Dioxide (22-32) mmol/L BUN (7-17) mg/dL Creatinine (0.52-1.04) mg/dL Estimated GFR (>60) mL/min BUN/Creatinine Ratio (6-22) Glucose (70-100) mg/dL Calcium (8.4-10.2) mg/dL Total Bilirubin (0.2-1.3) mg/dL AST (14-36) IU/L ALT (<35) IU/L Alkaline Phosphatase (38-126) U/L Total Protein (6.3-8.2) g/dL Albumin (3.5-5.0) g/dL Globulin (1.7-4.1) g/dL Albumin/Globulin Ratio (1.0-2.8) Lipase (23-300) U/L TSH (0.47-4.68) uIU/mL Serum , Qual Negative (Negative) U Opiates 300ng/mL cut Negative (Negative) Ur Oxycodone Screen Negative (Negative) Urine Methadone Screen Negative (Negative) Ur Barbiturates Screen Negative (Negative) U Tricyclic Antidepress Negative (Negative) Ur Phencyclidine Scrn Negative (Negative) Ur Amphetamines Screen Positive H (Negative) U Methamphetamines Scrn Positive H (Negative) Ur MDMA Scrn (Ecstasy) Positive H (Negative) U Benzodiazepines Scrn Negative (Negative) Urine Cocaine Screen Negative (Negative) U Marijuana (THC) Screen Negative (Negative) Ethyl Alcohol ( - 10) mg/dL SARS-CoV-2 (PCR) Negative (Negative) Urine Dip Bedside Urine Glucose Negative Bedside Urine Bilirubin - Negative Bedside Urine Ketone - Negative Urine Specific [place] 1.020 Bedside Urine Occult Blood - Negative Bedside Urine pH 6.0 Bedside Urine Protein +/- 15 Bedside Urine Urobilinogen - Negative Bedside Urine Nitrite - Negative Bedside Urine Leukocytes - Negative Esterase Point of care testing: Urine Dip Bedside Urine Glucose Negative Bedside Urine Bilirubin - Negative Bedside Urine Ketone - Negative Urine Specific [place] 1.020 Bedside Urine Occult Blood - Negative Bedside Urine pH 6.0 Bedside Urine Protein +/- 15 Bedside Urine Urobilinogen - Negative Bedside Urine Nitrite - Negative Bedside Urine Leukocytes - Negative Esterase [facility] Narrative Medical decision making narrative: Patient does have a known history of schizophrenia and also drug abuse. Her presentation today is similar to prior. She is disheveled but appears at baseline. She is calm. She denies SI. She states that she feels like she needs admitted to the hospital. She states that she is paranoid. Feels like people were chasing her. Is seeing and hearing things. Labs are obtained. Attempted to contact the PACT team but there was no answer at the phone number. Care turned over to day provider to continue to observe until disposition. After history and exam CBC CMP drug screen alcohol level social work consult MDM CC: Paranoia Complicating co-morbidities: Schizophrenia substance abuse homeless Data collected from: Patient Medical records reviewed: Patient here frequently for same complaint. Differential considered: Includes but not limited to psychosis/chronic schizophrenia/polysubstance abuse Exam documented above, pertinent findings include: No SI no HI Lab Test results independently reviewed as above. Pertinent findings: WBC 6.7 hemoglobin 11.9 sodium 136 potassium 3.6 glucose 107 AST 22 ALT 16 Alcohol less than 10 negative TSH 3.08 Drug screen positive for amphetamines Consultations: Treatments: Re-evaluations: 8:30 a.m.. Patient results updated with her. We are waiting for response from [facility], we have faxed her information to get placement as she desired. She denies any SI or HI at this time. She is willing to stay 8:50 a.m.. Patient has eloped from the department. Discussion: I did speak with patient and update her that we are waiting for [facility] to review her chart and for acceptance. However she she eloped from the department. After I spoke with her. She denied any SI or HI when I did talk to her. Patient here frequently for various complaints. She has chronic schizophrenia. Chronic substance abuse. She did have steady self gait in the hallway to the bathroom. No ataxia. She is not combative. She has been very cooperative during course of stay. She denied any fall or injuries. Patient was here voluntarily. She has changed her mind for treatment. Paperwork was not able to begin to patient as she did not want any paperwork or talk to me again Diagnosis: Chronic schizophrenia/amphetamine abuse September 10, 2022 at 7:00 a.m.. Gus: Sign out from Dr Capps labs are pending. Patient is voluntary wishing for inpatient hospitalization. No SI no HI. Social work consult is in. Discharge Plan Departure Patient Disposition: Released, Other Clinical Impression: Methamphetamine abuse, Chronic schizophrenic Instructions: DI for Schizophrenia, DI for Substance Use Disorder Prescriptions: No Action hydroxyzine HCl 25 mg tablet 25 mg PO QID PRN (Reason: anxiety) Qty: 30 0RF olanzapine 10 mg tablet 10 mg PO QAM olanzapine 20 mg tablet 20 mg PO BEDTIME permethrin 5 % cream 1 applic topical Q14D Qty: 60 0RF Rx Instructions: apply second treatment 14 days after first treatment if live lice remain lisinopril 20 mg tablet 20 mg PO DAILY Qty: 30 0RF Referrals: Francisco Lobo ARNP [Primary Care Provider] -
--- NOTE | 2022-09-10 06:26 | PC.NURSE ---
PACT team contacted. No answer. Voicemail left.
[2022-09-10 06:37] LABS: Add Manual Diff / Slide Review NO; Basophils Absolute Auto 100 /uL (0-100); Basophils Percent Auto 0.8 % (0-2); Eosinophils Absolute Auto 100 /uL (0-450); Eosinophils Percent Auto 1.7 % (2-4); Hematocrit 35.9 % (36-46); Hemoglobin 11.9 g/dL (12.0-16.0); Lymphocytes Absolute Auto 1200 /uL (1100-4500); Lymphocytes Percent Auto 17.3 % (25-40); Mean Corpuscular Hemoglobin 26.8 PG (26-34); Mean Corpuscular Volume 81.2 fL (80-100); Monocytes Absolute Auto 500 /uL (0-900); Monocytes Percent Auto 6.9 % (3-14); Neutrophils Absolute Auto 4900 /uL (1500-7000); Neutrophils Percent Auto 73.3 % (50-75); Platelet Count 517 X10^3/uL (150-400); Red Blood Cell Count 4.43 X10^6/uL (4.0-5.2); Red Cell Distribution Width 16.8 % (11.6-14.8); White Blood Cell Count 6.7 X10^3/uL (4.5-11.0)
[2022-09-10 06:46] LABS: Alanine Aminotransferase 16 IU/L (<35); Albumin 4.4 g/dL (3.5-5.0); Albumin Globulin Ratio 1.2 (1.0-2.8); Alkaline Phosphatase 87 U/L (38-126); Aspartate Aminotransferase 22 IU/L (14-36); BUN Creatinine Ratio 21.2 (6-22); Bilirubin Total 0.8 mg/dL (0.2-1.3); Blood Urea Nitrogen 14 mg/dL (7-17); Calcium 8.7 mg/dL (8.4-10.2); Carbon Dioxide 27 mmol/L (22-32); Chloride 100 mmol/L (98-107); Estimated Glomerular Filt Rate > 60 mL/min (>60); Ethanol (ETOH) < 10 mg/dL; Globulin 3.7 g/dL (1.7-4.1); Glucose 107 mg/dL (70-100); HEMOLYSIS 16 (0-50); Lipase 68 U/L (23-300); Potassium 3.6 mmol/L (3.4-5.1); Sodium 136 mmol/L (137-145); Total Protein 8.1 g/dL (6.3-8.2)
[2022-09-10 06:57] LABS: Pregnancy Test Serum,Qual Negative (Negative)
[2022-09-10 07:30] LABS: Thyroid Stimulating Hormone 3.08 uIU/mL (0.47-4.68)
[2022-09-10 07:57] LABS: Ur Creatinine Normal (Normal); Ur Specific Gravity Normal (Normal); Urine pH Normal (Normal)
[2022-09-10 07:58] LABS: UR Morphine/Opiate cutoff 300 Negative (Negative); Urine Amphetamines Positive (Negative); Urine Barbiturates Negative (Negative); Urine Benzodiazepines Negative (Negative); Urine Cocaine Negative (Negative); Urine MDMA Positive (Negative); Urine Methadone Negative (Negative); Urine Methamphetamines Positive (Negative); Urine Oxycodone Negative (Negative); Urine Phencyclidine Negative (Negative); Urine Tetrahydrocannabinol Negative (Negative); Urine Tricyclic Antidepressant Negative (Negative)
[2022-09-10 08:37] LABS: COVID19 -Nasal RAPID Negative (Negative)
== END 2022-09-10 08:48 | disposition home or self-care (01) ==
PROVIDERS: Emergency Medicine; Emergency Provider Emergency Medicine; Family Provider Family Medicine; PCP Registered Nurse Diabetes Educator
DX: F15.10 Other stimulant abuse, uncomplicated (principal); F20.89 Other schizophrenia
CPT/HCPCS: 36415; 80053; 80305; 80320; 81003; 83690; 84443; 84703; 85025; 87635; 99283; C9803

== ENCOUNTER 2022-09-23 13:04 | Emergency (ER) | payer OTHER, MEDICAID, SELFPAY ==
[2022-09-23 13:48] VITALS: BP 147/85; PULSE 116; RESP 16; TEMP 37.2; O2SAT 98
--- NOTE | 2022-09-23 13:51 | ED.GENADULT ---
HPI - General Adult General Chief complaint: Nausea/Vomiting/Diarrhea Stated complaint: not feeling well Time Seen by Provider: 09/23/22 13:11 Source: patient Mode of arrival: Ambulatory Limitations: no limitations History of Present Illness HPI narrative: 42-year-old female who is well known to myself in this emergency department. Is homeless. Has a history of schizophrenia. Is medically noncompliant. Also has a history of drug abuse. Is here for evaluation of ?not feeling well? she also states that she feels like she wants to throw up. Has had hot and cold chills. No urinary symptoms. No chest pain. Did report that she was having some shortness of breath. Related Data Home Medications Medication Instructions Recorded Confirmed olanzapine 10 mg tablet 10 mg PO QAM 05/21/22 06/03/22 olanzapine 20 mg tablet 20 mg PO BEDTIME 05/21/22 06/03/22 Previous Rx's Medication Instructions Recorded hydroxyzine HCl 25 mg tablet 25 mg PO QID PRN anxiety #30 tabs 05/21/22 permethrin 5 % topical cream 1 applic topical Q14D 2 doses #60 06/11/22 grams lisinopril 20 mg tablet 20 mg PO DAILY #30 tabs 07/24/22 Allergies Allergy/AdvReac Type Severity Reaction Status Date / Time No Known Drug Allergies Allergy Verified 09/23/22 13:46 Review of Systems Constitutional Constitutional: Reports system reviewed and no additional complaints, except as documented Cardiovascular Cardiovascular: Reports system reviewed and no additional complaints, except as documented Respiratory Respiratory: Reports system reviewed and no additional complaints, except as documented Gastrointestinal Gastrointestinal: Reports system reviewed and no additional complaints, except as documented Integumentary/Breasts Skin/Breast: Reports system reviewed and no additional complaints, except as documented Neurologic Neurologic: Reports system reviewed and no additional complaints, except as documented Patient History Medical History Drug abuse Homeless single person Methamphetamine abuse Schizophrenia Social History Smoking Status: Current every day smoker Smoking Status: Current every day smoker tobacco type: cigarettes alcohol intake frequency: holidays/special occasions only Substance Use Type: methamphetamine and unknown Exam Initial Vital Signs Initial Vital Signs: Vital Signs Temperature 98.9 F 09/23/22 13:48 Pulse Rate 116 H 09/23/22 13:48 Respiratory Rate 16 09/23/22 13:48 Blood Pressure 147/85 H 09/23/22 13:48 Pulse Oximetry 98 09/23/22 13:48 Oxygen Delivery Method Room Air 09/23/22 13:48 HENMT Head: normal to inspection and normocephalic Resp Effort & Inspection: normal respiratory effort Auscultation: clear to auscultation bilaterally Cardio Rate: tachycardic Rhythm: regular rhythm Neuro General: patient alert, patient awake and moves all extremities Course Orders Ordered: ED Orders 09/23/22 13:52 Covid-19 + FLU A/B + RSV - PCR Stat Discontinued Medications Ondansetron HCl (Ondansetron 4 Mg Odt) 4 mg SL NOW ONE Stop: 09/23/22 13:53 Vital Signs Vital signs: Vital Signs - 8 hr 09/23/22 13:48 Temperature 98.9 F Pulse Rate 116 H Respiratory Rate 16 Blood Pressure 147/85 H Pulse Oximetry 98 Oxygen Delivery Method Room Air Medical Decision Making [facility] Narrative Medical decision making narrative: Patient is nontoxic. Is at at her baseline level of disheveled appearance. No respiratory distress. Lungs are clear. Initially plan was to give her some Zofran, do a oral fluid challenge and test her for COVID/flu. The patient was initially okay with this. We then asked for a urine sample in the patient declined and then she left the emergency department without any lab test being done or discharge paperwork. Discharge Plan Departure Patient Disposition: Left Against Medical Advice Clinical Impression: Left against medical advice, Nausea Prescriptions: No Action hydroxyzine HCl 25 mg tablet 25 mg PO QID PRN (Reason: anxiety) Qty: 30 0RF olanzapine 10 mg tablet 10 mg PO QAM olanzapine 20 mg tablet 20 mg PO BEDTIME permethrin 5 % cream 1 applic topical Q14D Qty: 60 0RF Rx Instructions: apply second treatment 14 days after first treatment if live lice remain lisinopril 20 mg tablet 20 mg PO DAILY Qty: 30 0RF Referrals: Francisco Lobo ARNP [Primary Care Provider] - Stand Alone Forms: Against Medical Advice
--- NOTE | 2022-09-23 13:54 | PC.NURSE ---
After provider left triage, patient declined giving a urine sample to rule out infection and stated I'm gonna head out. I have to be at the [facility] anyway. Provider notified.
== END 2022-09-23 13:55 | disposition left against medical advice (07) ==
LOC: ED 13:26
PROVIDERS: Emergency Provider Emergency Medicine; Family Provider Family Medicine; PCP Registered Nurse Diabetes Educator
DX: R11.0 Nausea (principal)
CPT/HCPCS: 99281

== ENCOUNTER 2022-09-28 11:06 | Emergency (ER) | payer OTHER, MEDICAID, SELFPAY ==
[2022-09-28 11:44] VITALS: BP 142/83; PULSE 101; RESP 16; TEMP 36.9; O2SAT 98; BMI 26.2
--- NOTE | 2022-09-28 14:26 | PC.NURSE ---
Patient left the emergency department without being seen by provider. Patient left her personal blanket in the room but took all other belongings.
== END 2022-09-28 14:25 | disposition left against medical advice (07) ==
PROVIDERS: Emergency Provider Emergency Medicine; Family Provider Family Medicine; PCP Registered Nurse Diabetes Educator
CPT/HCPCS: 99283

== ENCOUNTER 2022-09-29 04:15 | Emergency (ER) | payer OTHER, MEDICAID, SELFPAY ==
[2022-09-29 04:25] VITALS: BP 181/101; PULSE 103; RESP 18; TEMP 36.4; O2SAT 98; BMI 26.6
--- NOTE | 2022-09-29 04:31 | ED.NAVMDI ---
HPI - Nausea/Vomiting/Diarrhea General Chief complaint: Nausea/Vomiting/Diarrhea Stated complaint: SICK Time Seen by Provider: 09/29/22 04:19 Source: patient Mode of arrival: Ambulatory History of Present Illness HPI Narrative: 42-year-old female who is here for evaluation of ?feeling sick? she describes this as feeling nauseous. She also states she is having abdominal pain. Related Data Home Medications Medication Instructions Recorded Confirmed olanzapine 10 mg tablet 10 mg PO QAM 05/21/22 06/03/22 olanzapine 20 mg tablet 20 mg PO BEDTIME 05/21/22 06/03/22 Previous Rx's Medication Instructions Recorded hydroxyzine HCl 25 mg tablet 25 mg PO QID PRN anxiety #30 tabs 05/21/22 permethrin 5 % topical cream 1 applic topical Q14D 2 doses #60 06/11/22 grams lisinopril 20 mg tablet 20 mg PO DAILY #30 tabs 07/24/22 Allergies Allergy/AdvReac Type Severity Reaction Status Date / Time No Known Drug Allergies Allergy Verified 09/23/22 13:46 Review of Systems Constitutional Constitutional: Reports system reviewed and no additional complaints, except as documented Gastrointestinal Gastrointestinal: Reports system reviewed and no additional complaints, except as documented Patient History Medical History Drug abuse Homeless single person Methamphetamine abuse Schizophrenia Social History Smoking Status: Current every day smoker Smoking Status: Current every day smoker tobacco type: cigarettes alcohol intake frequency: holidays/special occasions only Substance Use Type: methamphetamine and unknown Exam Initial Vital Signs Initial Vital Signs: Vital Signs Temperature 97.5 F L 09/29/22 04:25 Pulse Rate 103 H 09/29/22 04:25 Respiratory Rate 18 09/29/22 04:25 Blood Pressure 181/101 H 09/29/22 04:25 Pulse Oximetry 98 09/29/22 04:25 Oxygen Delivery Method Room Air 09/29/22 04:25 Resp Effort & Inspection: normal respiratory effort Cardio Rate: regular rate GI Inspection: normal to inspection Course Orders Ordered: Discontinued Medications Ondansetron HCl (Ondansetron 4 Mg Odt) 4 mg SL NOW ONE Stop: 09/29/22 04:32 Last Admin: 09/29/22 04:35 Dose: 4 mg Documented By: GUTIERREZ Vital Signs Vital signs: Vital Signs - 8 hr /12/14 04:25 Temperature 97.5 F L Pulse Rate 103 H Respiratory Rate 18 Blood Pressure 181/101 H Pulse Oximetry 98 Oxygen Delivery Method Room Air MDM - Nausea/Vomiting/Diarrhea MDM Narrative Medical decision making narrative: Patient was given a dose of Zofran. She was able to tolerate oral intake afterwards. Upon re-evaluation she states that she was feeling somewhat better but was still ?feeling sick?. Patient then left the emergency department without discharge paperwork. Discharge Plan Departure Patient Disposition: Home Clinical Impression: Nausea Prescriptions: No Action hydroxyzine HCl 25 mg tablet 25 mg PO QID PRN (Reason: anxiety) Qty: 30 0RF olanzapine 10 mg tablet 10 mg PO QAM olanzapine 20 mg tablet 20 mg PO BEDTIME permethrin 5 % cream 1 applic topical Q14D Qty: 60 0RF Rx Instructions: apply second treatment 14 days after first treatment if live lice remain lisinopril 20 mg tablet 20 mg PO DAILY Qty: 30 0RF Referrals: Francisco Lobo ARNP [Primary Care Provider] - Stand Alone Forms: Patient Portal/API
[2022-09-29] MEDS: ONDANSETRON 4 MG ODT SL (04:35)
--- NOTE | 2022-09-29 05:09 | PC.NURSE ---
pt tolerated apple juice sandwich given
--- NOTE | 2022-09-29 05:15 | PC.NURSE ---
pt ate sandwich and tolerated well
== END 2022-09-29 05:30 | disposition home or self-care (01) ==
PROVIDERS: Emergency Provider Emergency Medicine; Family Provider Family Medicine; PCP Registered Nurse Diabetes Educator
DX: R11.0 Nausea (principal)
CPT/HCPCS: 99282; 99283

== ENCOUNTER 2022-09-30 16:39 | Emergency (ER) | payer OTHER, MEDICAID, SELFPAY ==
--- NOTE | 2022-09-30 16:55 | PC.NURSE ---
Pt disruptive, yelling, screaming in foyer. Instructed to stop yelling or she would need to leave. Pt left.
== END 2022-09-30 16:58 | disposition left against medical advice (07) ==
PROVIDERS: Emergency Provider Emergency Medicine; Family Provider Family Medicine; PCP Registered Nurse Diabetes Educator
DX: R68.89 Other general symptoms and signs (principal)

== ENCOUNTER 2022-10-01 18:11 | Emergency (ER) | payer OTHER, MEDICAID, SELFPAY | END 2022-10-01 18:45 | disposition left against medical advice (07) | PROVIDERS: Family Provider Family Medicine; PCP Registered Nurse Diabetes Educator | DX: R68.89 Other general symptoms and signs (principal) ==

== ENCOUNTER 2022-10-02 00:48 | Emergency (ER) | payer OTHER, MEDICAID, SELFPAY ==
[2022-10-02 00:49] VITALS: BP 146/100; PULSE 95; RESP 18; TEMP 36.6; O2SAT 97
--- NOTE | 2022-10-02 00:52 | ED_ITS ---
HPI - General Adult General Chief complaint: Nausea/Vomiting/Diarrhea Stated complaint: not feeling well Time Seen by Provider: 10/02/22 00:52 Source: patient Mode of arrival: Ambulatory Limitations: no limitations History of Present Illness HPI narrative: Patient is a 42-year-old female who is well known to myself in this department. Has a history of schizophrenia, is homeless, methamphetamine and other drug ab use who is here for evaluation of ?feeling well? she can not explain much more than that. She states she does feel nauseous. She states she is not seen her PACT team in quite some time she is here stating that she is not sure what to do Related Data Home Medications Medication Instructions Recorded Confirmed olanzapine 10 mg tablet 10 mg PO QAM 05/21/22 06/03/22 olanzapine 20 mg tablet 20 mg PO BEDTIME 05/21/22 06/03/22 Previous Rx's Medication Instructions Recorded hydroxyzine HCl 25 mg tablet 25 mg PO QID PRN anxiety #30 tabs 05/21/22 permethrin 5 % topical cream 1 applic topical Q14D 2 doses #60 06/11/22 grams lisinopril 20 mg tablet 20 mg PO DAILY #30 tabs 07/24/22 Allergies Allergy/AdvReac Type Severity Reaction Status Date / Time No Known Drug Allergies Allergy Verified 09/23/22 13:46 Review of Systems Gastrointestinal Gastrointestinal: Reports system reviewed and no additional complaints, except as documented Psychiatric Psychiatric: Reports system reviewed and no additional complaints, except as documented Patient History Medical History Drug abuse Homeless single person Methamphetamine abuse Schizophrenia Social History Smoking Status: Current every day smoker Smoking Status: Current every day smoker tobacco type: cigarettes alcohol intake frequency: holidays/special occasions only Substance Use Type: methamphetamine and unknown Exam Initial Vital Signs Initial Vital Signs: Vital Signs Temperature 98 F 10/02/22 00:49 Pulse Rate 95 H 10/02/22 00:49 Respiratory Rate 18 10/02/22 00:49 Blood Pressure 146/100 H 10/02/22 00:49 Pulse Oximetry 97 10/02/22 00:49 Oxygen Delivery Method Room Air 10/02/22 00:49 Const Other: Disheveled Extrem Other: No gross deformities Psych Other: Calm, cooperative Course Orders Ordered: Discontinued Medications Olanzapine (Olanzapine Odt 10 Mg Tab) 10 mg PO NOW ONE Stop: 10/02/22 00:58 Last Admin: 10/02/22 01:58 Dose: Not Given Documented By: GUTIERREZ Olanzapine (Olanzapine Odt 10 Mg Tab) 20 mg PO NOW ONE Stop: 10/02/22 00:59 Last Admin: 10/02/22 01:06 Dose: 20 mg Documented By: CAROLYN Ondansetron HCl (Ondansetron 4 Mg Odt Prepack) 1 bottle MISC SEEINSTR ONE Stop: 10/02/22 00:58 Last Admin: 10/02/22 01:06 Dose: 1 bottle Documented By: CAROLYN Vital Signs Vital signs: Vital Signs - 8 hr 10/02/22 00:49 Temperature 98 F Pulse Rate 95 H Respiratory Rate 18 Blood Pressure 146/100 H Pulse Oximetry 97 Oxygen Delivery Method Room Air Medical Decision Making MDM Narrative Medical decision making narrative: Patient arrived at her normal state of disheveled. She was agreeable to an oral dose of Zyprexa and also Zofran. No further workup required here in the emergency department. Discharge Plan Departure Patient Disposition: Home Clinical Impression: Homeless single person Activity Restrictions/Additional Instructions: Please continue to take all of your medications as directed Prescriptions: No Action hydroxyzine HCl 25 mg tablet 25 mg PO QID PRN (Reason: anxiety) Qty: 30 0RF olanzapine 10 mg tablet 10 mg PO QAM olanzapine 20 mg tablet 20 mg PO BEDTIME permethrin 5 % cream 1 applic topical Q14D Qty: 60 0RF Rx Instructions: apply second treatment 14 days after first treatment if live lice remain lisinopril 20 mg tablet 20 mg PO DAILY Qty: 30 0RF Referrals: Francisco Lobo ARNP [Primary Care Provider] - Stand Alone Forms: Patient Portal/API
[2022-10-02] MEDS: ONDANSETRON 4 MG ODT PREPACK 1 BOTTLE MISC (01:06)
[2022-10-02] MEDS: OLANZapine ODT 10 MG TAB 20 MG PO (01:06)
[2022-10-02 03:05] VITALS: BP 140/98; PULSE 90; RESP 18; TEMP 36.6; O2SAT 98
== END 2022-10-02 03:06 | disposition home or self-care (01) ==
PROVIDERS: Emergency Provider Emergency Medicine; Family Provider Family Medicine; PCP Registered Nurse Diabetes Educator
DX: R11.0 Nausea (principal); Z59.00 Homelessness unspecified
CPT/HCPCS: 99282; 99283

== ENCOUNTER 2022-10-04 13:28 | Emergency (ER) | payer OTHER, MEDICAID, SELFPAY ==
--- NOTE | 2022-10-04 13:42 | PC.NURSE ---
Addendum entered by Samantha Borrero R.N. 10/04/22 13:59: Per registration, patient was spotted at a bus stop away from hospital. Charge nurse notified. Original Note: Went out into waiting room to give patient urine cup for sample, was unable to locate. Registration did not see patient leave. Checked bathrooms by ED, both empty.
== END 2022-10-04 14:00 | disposition left against medical advice (07) ==
PROVIDERS: Emergency Provider Emergency Medicine; Family Provider Family Medicine; PCP Registered Nurse Diabetes Educator

== ENCOUNTER 2022-10-04 22:22 | Emergency (ER) | payer OTHER, MEDICAID, SELFPAY ==
[2022-10-04 23:37] VITALS: BP 143/89; PULSE 99; RESP 16; TEMP 36.6; O2SAT 98; BMI 26.2
--- NOTE | 2022-10-04 23:40 | ED_ITS ---
HPI - General Adult General Chief complaint: Recheck/Abnormal Lab/Rx Stated complaint: Doesn't feel good Time Seen by Provider: 10/04/22 23:35 Source: patient Mode of arrival: EMS History of Present Illness HPI narrative: Patient is a 42-year-old female. This is her 6th visit in the past week. She is well known to myself in this emergency department. She is homeless. Has frequent methamphetamine use. Also has a history of schizophrenia. Has not on any medication. She is here for ?does not feel good? this is very often her presenting complaint. It is difficult for her to elaborate any more on this. She states that she is interested in being admitted to the hospital for ?depression? she denies any suicidal or homicidal ideation. She states that she has not been in contact with her PACT team. Has not been on any medications. She also states she has not used methamphetamine in? 4 weeks? Related Data Home Medications Medication Instructions Recorded Confirmed olanzapine 10 mg tablet 10 mg PO QAM 05/21/22 06/03/22 olanzapine 20 mg tablet 20 mg PO BEDTIME 05/21/22 06/03/22 Previous Rx's Medication Instructions Recorded hydroxyzine HCl 25 mg tablet 25 mg PO QID PRN anxiety #30 tabs 05/21/22 permethrin 5 % topical cream 1 applic topical Q14D 2 doses #60 06/11/22 grams lisinopril 20 mg tablet 20 mg PO DAILY #30 tabs 07/24/22 Allergies Allergy/AdvReac Type Severity Reaction Status Date / Time No Known Drug Allergies Allergy Verified 09/23/22 13:46 Review of Systems Cardiovascular Comments: Denies chest pain Respiratory Comments: Denies shortness of breath Gastrointestinal Comments: Denies abdominal pain Psychiatric Psychiatric: Reports system reviewed and no additional complaints, except as documented Patient History Medical History Drug abuse Homeless single person Methamphetamine abuse Schizophrenia Social History Smoking Status: Current every day smoker Smoking Status: Current every day smoker tobacco type: cigarettes alcohol intake frequency: holidays/special occasions only Substance Use Type: methamphetamine and unknown Exam Initial Vital Signs Initial Vital Signs: Vital Signs Temperature 97.9 F 10/04/22 23:37 Pulse Rate 99 H 10/04/22 23:37 Respiratory Rate 16 10/04/22 23:37 Blood Pressure 143/89 H 10/04/22 23:37 Pulse Oximetry 98 10/04/22 23:37 Oxygen Delivery Method Room Air 10/04/22 23:37 HENMT Head: normal to inspection and normocephalic Resp Effort & Inspection: normal respiratory effort Cardio Rate: regular rate Psych Other: Patient is disheveled. Is cooperative. Denies SI/HI. Does report ?depression? Course Vital Signs Vital signs: Vital Signs - 8 hr 10/04/22 23:37 Temperature 97.9 F Pulse Rate 99 H Respiratory Rate 16 Blood Pressure 143/89 H Pulse Oximetry 98 Oxygen Delivery Method Room Air Medical Decision Making MDM Narrative Medical decision making narrative: Patient presents at her baseline mental status. She denies suicidal or homicidal ideation. She is disheveled. She states she has not been taking any of her medication. She stated that she was potentially interested in being a dmitted to the hospital for ?depression? although she states that ?I do not want to stay long? we were in the process of contacting facilities to see if there were any bed availability and the patient decided that she did not want to stay any longer. She left the emergency department without specific discharge instructions. Discharge Plan Departure Patient Disposition: Left Against Medical Advice Clinical Impression: Patient left before treatment completed Prescriptions: No Action hydroxyzine HCl 25 mg tablet 25 mg PO QID PRN (Reason: anxiety) Qty: 30 0RF olanzapine 10 mg tablet 10 mg PO QAM olanzapine 20 mg tablet 20 mg PO BEDTIME permethrin 5 % cream 1 applic topical Q14D Qty: 60 0RF Rx Instructions: apply second treatment 14 days after first treatment if live lice remain lisinopril 20 mg tablet 20 mg PO DAILY Qty: 30 0RF Stand Alone Forms: Against Medical Advice
--- NOTE | 2022-10-05 00:03 | PC.NURSE ---
Patient was seen leaving hospital grounds. Had left belongings in waiting room. Bagged belongings up and patient came back for them and stated I'm just gonna go. Provider aware.
== END 2022-10-05 00:04 | disposition left against medical advice (07) ==
PROVIDERS: Emergency Provider Emergency Medicine; Family Provider Family Medicine; PCP Registered Nurse Diabetes Educator
CPT/HCPCS: 99281

== ENCOUNTER 2022-10-08 10:44 | Emergency (ER) | payer OTHER, MEDICAID, SELFPAY ==
--- NOTE | 2022-10-08 11:11 | PC.NURSE ---
Attempted to triage patient @1040. Pt not in waiting room. Registration states she went outside Checked for pat @ 1100: Pt not in waiting room.
== END 2022-10-08 11:05 | disposition left against medical advice (07) ==
PROVIDERS: Emergency Provider Emergency Medicine; Family Provider Family Medicine; PCP Registered Nurse Diabetes Educator

== ENCOUNTER 2022-10-09 22:36 | Emergency (ER) | payer OTHER, MEDICAID, SELFPAY ==
[2022-10-09 22:44] VITALS: PULSE 100; RESP 16; TEMP 36.3; O2SAT 100; BMI 26.6
[2022-10-09 22:49] VITALS: BP 177/90; BMI 26.6
--- NOTE | 2022-10-09 22:52 | ED.PSYCH ---
HPI - Psych General Chief Complaint: Psychiatric Symptoms Stated Complaint: not feeling well, scared Time Seen by Provider: 10/09/22 22:52 Source: patient Mode of arrival: Ambulatory History of Present Illness HPI Narrative: Patient is a 42-year-old female well known to myself in this emergency department. She is homeless. Has a known schizophrenic. Known abuser of methamphetamine and other illicit substances who is here in the emergency department with her normal stated complaint which is ?I am scared? and ?I do not feel good? and ?I feel like I want to throw up?. These are very often her presenting complaints. She is at her baseline mental status. This is approximally her 10th visit in the last 10 days here in the ER. Related Data Home Medications Medication Instructions Recorded Confirmed olanzapine 10 mg tablet 10 mg PO QAM 05/21/22 06/03/22 olanzapine 20 mg tablet 20 mg PO BEDTIME 05/21/22 06/03/22 Previous Rx's Medication Instructions Recorded hydroxyzine HCl 25 mg tablet 25 mg PO QID PRN anxiety #30 tabs 05/21/22 permethrin 5 % topical cream 1 applic topical Q14D 2 doses #60 06/11/22 grams lisinopril 20 mg tablet 20 mg PO DAILY #30 tabs 07/24/22 Allergies Allergy/AdvReac Type Severity Reaction Status Date / Time No Known Drug Allergies Allergy Verified 09/23/22 13:46 Review of Systems Constitutional Constitutional: Reports system reviewed and no additional complaints, except as documented Gastrointestinal Gastrointestinal: Reports system reviewed and no additional complaints, except as documented Patient History Medical History Drug abuse Homeless single person Methamphetamine abuse Schizophrenia Social History Smoking Status: Current every day smoker Smoking Status: Current every day smoker tobacco type: cigarettes alcohol intake frequency: holidays/special occasions only Substance Use Type: methamphetamine and unknown Exam Initial Vital Signs Initial Vital Signs: Vital Signs Temperature 97.3 F L 10/09/22 22:44 Pulse Rate 100 H 10/09/22 22:44 Respiratory Rate 16 10/09/22 22:44 Pulse Oximetry 100 10/09/22 22:44 Oxygen Delivery Method Room Air 10/09/22 22:44 Const General: disheveled Resp Effort & Inspection: normal respiratory effort Auscultation: clear to auscultation bilaterally Cardio Rate: regular rate Rhythm: regular rhythm GI Inspection: normal to inspection and non-distended Palpation: soft and No tender Extrem Other: No gross deformities Course Orders Ordered: Discontinued Medications Ondansetron HCl (Ondansetron 4 Mg Odt Prepack) 1 bottle MISC SEEINSTR ONE Stop: 10/10/22 00:19 Vital Signs Vital signs: Vital Signs - 8 hr 10/09/22 22:44 10/09/22 22:49 Temperature 97.3 F L Pulse Rate 100 H Respiratory Rate 16 Blood Pressure 177/90 H Pulse Oximetry 100 Oxygen Delivery Method Room Air MDM - Psych MDM Narrative Medical decision making narrative: Patient is at her baseline mental status. Baseline appearance. Has a benign abdominal exam. Will discharge home with medications to help with the nausea. No further workup required in the emergency department. Discharge Plan Departure Patient Disposition: Home Clinical Impression: Nausea Instructions: DI for Nausea -- Adult Prescriptions: No Action hydroxyzine HCl 25 mg tablet 25 mg PO QID PRN (Reason: anxiety) Qty: 30 0RF olanzapine 10 mg tablet 10 mg PO QAM olanzapine 20 mg tablet 20 mg PO BEDTIME permethrin 5 % cream 1 applic topical Q14D Qty: 60 0RF Rx Instructions: apply second treatment 14 days after first treatment if live lice remain lisinopril 20 mg tablet 20 mg PO DAILY Qty: 30 0RF Referrals: Francisco Lobo ARNP [Primary Care Provider] - Stand Alone Forms: Patient Portal/API
[2022-10-10] MEDS: ONDANSETRON 4 MG ODT PREPACK 1 BOTTLE MISC (00:26)
[2022-10-10 00:27] VITALS: BP 164/88; PULSE 94; RESP 18; TEMP 36.4; O2SAT 100
== END 2022-10-10 00:28 | disposition home or self-care (01) ==
PROVIDERS: Emergency Provider Emergency Medicine; Family Provider Family Medicine; PCP Registered Nurse Diabetes Educator
DX: R11.0 Nausea (principal); F15.10 Other stimulant abuse, uncomplicated; F20.9 Schizophrenia, unspecified
CPT/HCPCS: 99281

== ENCOUNTER 2022-10-14 10:49 | Emergency (ER) | payer OTHER, MEDICAID, SELFPAY ==
--- NOTE | 2022-10-14 11:44 | PC.NURSE ---
1100: visualized at triage. Walking in and out of building. No acute distress.
== END 2022-10-14 11:10 | disposition left against medical advice (07) ==
PROVIDERS: Emergency Provider Emergency Medicine; Family Provider Family Medicine; PCP Registered Nurse Diabetes Educator

== ENCOUNTER 2022-10-17 13:59 | Emergency (ER) | payer OTHER, MEDICAID, SELFPAY ==
[2022-10-17 14:08] VITALS: BP 150/96; PULSE 95; RESP 18; TEMP 36.4; O2SAT 96; BMI 26.6
--- NOTE | 2022-10-17 16:41 | ED.ABDPAIN ---
HPI - Abdominal Pain <ENEDELIA Dexter - Last Filed: 10/17/22 17:38> General Chief Complaint: Abdominal Pain Stated Complaint: Feels sick Time Seen by Provider: 10/17/22 15:59 Source: patient Mode of arrival: Ambulatory History of Present Illness HPI narrative: This is a 42-year-old homeless female who presents to the emergency department today for left lower quadrant pain/left-sided pelvic pain, endorses some urinary changes. States that her pain is a 10/10, states that she is nauseous, has history of methamphetamine use and is an everyday smoker. She denies fever chills, denies flank pain, denies pain anywhere else but states that her abdominal pain is quite severe. She states she has not had pain like this before, states that she is getting her medications, has not had fevers, denies dysuria, states that her urine is not normal though. She states that she feels ill and nauseated but has not been vomiting. Related Data Home Medications Medication Instructions Recorded Confirmed olanzapine 10 mg tablet 10 mg PO QAM 05/21/22 06/03/22 olanzapine 20 mg tablet 20 mg PO BEDTIME 05/21/22 06/03/22 Previous Rx's Medication Instructions Recorded hydroxyzine HCl 25 mg tablet 25 mg PO QID PRN anxiety #30 tabs 05/21/22 permethrin 5 % topical cream 1 applic topical Q14D 2 doses #60 06/11/22 grams lisinopril 20 mg tablet 20 mg PO DAILY #30 tabs 07/24/22 Allergies Allergy/AdvReac Type Severity Reaction Status Date / Time No Known Drug Allergies Allergy Verified 09/23/22 13:46 Review of Systems <ENEDELIA Dexter - Last Filed: 10/17/22 17:38> Review of Systems ROS Unobtainable: All systems reviewed & are unremarkable except as noted in HPI and below Patient History <ENEDELIA Dexter - Last Filed: 10/17/22 17:38> Medical History Drug abuse Homeless single person Methamphetamine abuse Schizophrenia Social History Smoking Status: Current every day smoker Smoking Status: Current every day smoker tobacco type: cigarettes alcohol intake frequency: holidays/special occasions only Substance Use Type: methamphetamine and unknown Exam <ENEDELIA Dexter - Last Filed: 10/17/22 17:38> Narrative Exam Narrative: Reviewed vitals signs and nursing notes. General: Pleasant, cooperative, sitting upright in waiting room, in no acute distress, afebrile HEENT: symmetrical facial expressions, moist mucous membranes, neck is supple CV: regular rate and rhythm, warm extremities Respiratory: normal work of breathing, without tachypnea or hypoxia. GI: abdomen soft, non-distended, without CVA tenderness bilaterally. Tenderness with palpation to the left lower quadrant MSK: moves all extremities, no weakness, normal tone, ambulatory without deficit Skin: brisk capillary refill, without rash or wound Neuro: clear speech and normal cognition, A&O x3, GCS 15, no focal motor or sensation deficits Initial Vital Signs Initial Vital Signs: Vital Signs Temperature 97.6 F 10/17/22 14:08 Pulse Rate 95 H 10/17/22 14:08 Respiratory Rate 18 10/17/22 14:08 Blood Pressure 150/96 H 10/17/22 14:08 Pulse Oximetry 96 10/17/22 14:08 Oxygen Delivery Method Room Air 10/17/22 14:08 <Cb Weber MD - Last Filed: 10/22/22 12:21> Initial Vital Signs Initial Vital Signs: Vital Signs Temperature 97.6 F 10/17/22 14:08 Pulse Rate 95 H 10/17/22 14:08 Respiratory Rate 18 10/17/22 14:08 Blood Pressure 150/96 H 10/17/22 14:08 Pulse Oximetry 96 10/17/22 14:08 Oxygen Delivery Method Room Air 10/17/22 14:08 Course <ENEDELIA Dexter - Last Filed: 10/17/22 17:38> Orders Ordered: Discontinued Medications Hydromorphone HCl (Hydromorphone 0.5 Mg Inj) 0.5 mg IV NOW ONE Stop: 10/17/22 16:47 Last Admin: 10/17/22 17:12 Dose: 0.5 mg Documented By: CELENA Ketorolac Tromethamine (Ketorolac 30 Mg/Ml Vial) 15 mg IV NOW ONE Stop: 10/17/22 16:45 Last Admin: 10/17/22 17:11 Dose: 15 mg Documented By: CELENA Nitrofurantoin Macrocrystals (Nitrofurantoin Er 100 Mg Capsule) 100 mg PO NOW ONE Stop: 10/17/22 17:34 Last Admin: 10/17/22 17:41 Dose: 100 mg Documented By: RAI Ondansetron HCl (Ondansetron 4 Mg/2 Ml Inj) 4 mg IV NOW ONE Stop: 10/17/22 17:08 Last Admin: 10/17/22 17:11 Dose: 4 mg Documented By: CELENA Vital Signs Vital signs: Vital Signs - 8 hr 10/17/22 14:08 10/17/22 17:39 Temperature 97.6 F 98 F Pulse Rate 95 H 92 H Respiratory Rate 18 16 Blood Pressure 150/96 H 127/78 Pulse Oximetry 96 100 Oxygen Delivery Method Room Air Room Air <Cb Weber MD - Last Filed: 10/22/22 12:21> Orders Ordered: Discontinued Medications Hydromorphone HCl (Hydromorphone 0.5 Mg Inj) 0.5 mg IV NOW ONE Stop: 10/17/22 16:47 Last Admin: 10/17/22 17:12 Dose: 0.5 mg Documented By: CELENA Ketorolac Tromethamine (Ketorolac 30 Mg/Ml Vial) 15 mg IV NOW ONE Stop: 10/17/22 16:45 Last Admin: 10/17/22 17:11 Dose: 15 mg Documented By: CELENA Nitrofurantoin Macrocrystals (Nitrofurantoin Er 100 Mg Capsule) 100 mg PO NOW ONE Stop: 10/17/22 17:34 Last Admin: 10/17/22 17:41 Dose: 100 mg Documented By: RAI Ondansetron HCl (Ondansetron 4 Mg/2 Ml Inj) 4 mg IV NOW ONE Stop: 10/17/22 17:08 Last Admin: 10/17/22 17:11 Dose: 4 mg Documented By: CELENA Vital Signs Vital signs: Vital Signs - 8 hr 10/17/22 14:08 10/17/22 17:39 Temperature 97.6 F 98 F Pulse Rate 95 H 92 H Respiratory Rate 18 16 Blood Pressure 150/96 H 127/78 Pulse Oximetry 96 100 Oxygen Delivery Method Room Air Room Air MDM - Abdominal Pain <ENEDELIA Dexter - Last Filed: 10/17/22 17:38> Lab Data 10/17/22 16:55 10/17/22 16:55 Labs: Lab Results 10/17/22 10/17/22 10/17/22 Range/Units 16:55 16:55 16:55 WBC 8.6 (4.5-11.0) X10^3/uL RBC 4.65 (4.0-5.2) X10^6/uL Hgb 12.5 (12.0-16.0) g/dL Hct 37.3 (36-46) % MCV 80.3 (80-100) fL MCH 26.9 (26-34) PG MCHC 33.5 (30-36) % RDW 15.9 H (11.6-14.8) % Plt Count 443 H (150-400) X10^3/uL Neut % (Auto) 80.6 H (50-75) % Lymph % (Auto) 12.1 L (25-40) % [place] % (Auto) 6.5 (3-14) % Eos % (Auto) 0.3 L (2-4) % Baso % (Auto) 0.5 (0-2) % Neut # (Auto) 6900 (3309-5032) /uL Lymph # (Auto) 1000 L (4519-3789) /uL [place] # (Auto) 600 (0-900) /uL Eos # (Auto) 0 (0-450) /uL Baso # (Auto) 0 (0-100) /uL Sodium 141 (137-145) mmol/L Potassium 3.6 (3.4-5.1) mmol/L Chloride 102 (98-107) mmol/L Carbon Dioxide 31 (22-32) mmol/L BUN 17 (7-17) mg/dL Creatinine 0.88 (0.52-1.04) mg/dL Estimated GFR > 60 (>60) mL/min BUN/Creatinine Ratio 19.3 (6-22) Glucose 91 (70-100) mg/dL Calcium 8.9 (8.4-10.2) mg/dL Total Bilirubin 0.6 (0.2-1.3) mg/dL AST 21 (14-36) IU/L ALT 16 (<35) IU/L Alkaline Phosphatase 75 (38-126) U/L Total Protein 8.3 H (6.3-8.2) g/dL Albumin 4.4 (3.5-5.0) g/dL Globulin 3.9 (1.7-4.1) g/dL Albumin/Globulin Ratio 1.1 (1.0-2.8) Lipase 54 (23-300) U/L HCG, Quant < 2.4 mIU/mL Urine RBC (0-5/HPF) Urine WBC (0-5/HPF) Ur Squamous Epith Cells (0-5/HPF) Urine Bacteria (None) Hyaline Casts (None) Ur Culture Indicated? Ur Chlamydia DNA (PCR) Not detected N gonorrhoeae DNA (PCR) Not detected 10/17/22 Range/Units 16:55 WBC (4.5-11.0) X10^3/uL RBC (4.0-5.2) X10^6/uL Hgb (12.0-16.0) g/dL Hct (36-46) % MCV (80-100) fL MCH (26-34) PG MCHC (30-36) % RDW (11.6-14.8) % Plt Count (150-400) X10^3/uL Neut % (Auto) (50-75) % Lymph % (Auto) (25-40) % [place] % (Auto) (3-14) % Eos % (Auto) (2-4) % Baso % (Auto) (0-2) % Neut # (Auto) (8300-1601) /uL Lymph # (Auto) (0131-5920) /uL [place] # (Auto) (0-900) /uL Eos # (Auto) (0-450) /uL Baso # (Auto) (0-100) /uL Sodium (137-145) mmol/L Potassium (3.4-5.1) mmol/L Chloride (98-107) mmol/L Carbon Dioxide (22-32) mmol/L BUN (7-17) mg/dL Creatinine (0.52-1.04) mg/dL Estimated GFR (>60) mL/min BUN/Creatinine Ratio (6-22) Glucose (70-100) mg/dL Calcium (8.4-10.2) mg/dL Total Bilirubin (0.2-1.3) mg/dL AST (14-36) IU/L ALT (<35) IU/L Alkaline Phosphatase (38-126) U/L Total Protein (6.3-8.2) g/dL Albumin (3.5-5.0) g/dL Globulin (1.7-4.1) g/dL Albumin/Globulin Ratio (1.0-2.8) Lipase (23-300) U/L HCG, Quant mIU/mL Urine RBC 0-1/hpf (0-5/HPF) Urine WBC 0-1/hpf (0-5/HPF) Ur Squamous Epith Cells 1-5 /hpf (0-5/HPF) Urine Bacteria Few (2-10) H (None) Hyaline Casts 0-1/lpf (None) Ur Culture Indicated? Cult not indicated Ur Chlamydia DNA (PCR) N gonorrhoeae DNA (PCR) Point of care testing: Point of Care Testing Test Results Negative Urine Dip Bedside Urine Glucose Negative Bedside Urine Bilirubin - Negative Bedside Urine Ketone - Negative Urine Specific [place] 1.030 Bedside Urine Occult Blood - Negative Bedside Urine pH 6 Bedside Urine Protein +/- 15 Bedside Urine Urobilinogen - Negative Bedside Urine Nitrite - Negative Bedside Urine Leukocytes - Negative Esterase Imaging Data CT scan - abdomen/pelvis: Radiologist's Impression: Patient refused CT scan MDM Narrative Medical decision making narrative: Chief Complaint: Left lower abdominal pain Multiple etiologies for patient's complaint considered including, but not limited to: Diverticulitis, pelvic infection, ectopic , vaginitis, STI, UTI, pyelonephritis, perforated viscus, foreign body, psychosis, colitis I have independently reviewed the patient's vital signs and nursing notes as well as prior records if available. Plan: Pain control with Toradol and Dilaudid, UA, basic lab work, lipase, gonorrhea/chlamydia, , CT abdomen pelvis for evaluation of left lower quadrant pain Course of Care: UA positive for protein only, sent to lab, is negative While patient was in CT, she became scared, stated that she did not want to have the CT anymore, she wanted to go. This was allowed, she went back to her room, still complains of pain 10/10 to this area, she was given Dilaudid, Toradol, Zofran for her symptoms. I encouraged her to wait a little while longer so that we can see what her labs showed and talk about discharge, she agrees to wake, states that she is tired, she is cooperative and agreeable at this point but does not want CT imaging. Her pain was treated with Toradol, Dilaudid, nausea treated with Zofran. CMP returned with no electrolyte abnormalities, normal liver enzymes, no acute abnormalities on her lab work in comparison to prior. Her urine gonorrhea and chlamydia is pending. She does not have a home phone number, she denies abnormal vaginal discharge, her was negative. There is no leukocytosis or anemia, no left shift. Urine microscopy shows few bacteria, will treat for UTI as patient has symptoms, she endorses urgency and frequency. She is not had a fever, or other systemic symptoms of illness, culture is not indicated but was ordered. We will continue to follow urine gonorrhea and chlamydia, I suspect this is why patient had today, she was given return precautions to include fever, chills, nausea, vomiting, worsening urinary symptoms. Social considerations that ma there is agreement with the plan for discharge. I consulted with the ED attending physician Dr. Weber as needed for higher level of care considerations and they were available for discussion and recommendations regarding plan of care and diagnostic testing. Patient is appropriate for outpatient management. <Cb Weber MD - Last Filed: 10/22/22 12:21> Lab Data Labs: Lab Results 10/17/22 10/17/22 10/17/22 Range/Units 16:55 16:55 16:55 WBC 8.6 (4.5-11.0) X10^3/uL RBC 4.65 (4.0-5.2) X10^6/uL Hgb 12.5 (12.0-16.0) g/dL Hct 37.3 (36-46) % MCV 80.3 (80-100) fL MCH 26.9 (26-34) PG MCHC 33.5 (30-36) % RDW 15.9 H (11.6-14.8) % Plt Count 443 H (150-400) X10^3/uL Neut % (Auto) 80.6 H (50-75) % Lymph % (Auto) 12.1 L (25-40) % [place] % (Auto) 6.5 (3-14) % Eos % (Auto) 0.3 L (2-4) % Baso % (Auto) 0.5 (0-2) % Neut # (Auto) 6900 (5265-3937) /uL Lymph # (Auto) 1000 L (2684-5191) /uL [place] # (Auto) 600 (0-900) /uL Eos # (Auto) 0 (0-450) /uL Baso # (Auto) 0 (0-100) /uL Sodium 141 (137-145) mmol/L Potassium 3.6 (3.4-5.1) mmol/L Chloride 102 (98-107) mmol/L Carbon Dioxide 31 (22-32) mmol/L BUN 17 (7-17) mg/dL Creatinine 0.88 (0.52-1.04) mg/dL Estimated GFR > 60 (>60) mL/min BUN/Creatinine Ratio 19.3 (6-22) Glucose 91 (70-100) mg/dL Calcium 8.9 (8.4-10.2) mg/dL Total Bilirubin 0.6 (0.2-1.3) mg/dL AST 21 (14-36) IU/L ALT 16 (<35) IU/L Alkaline Phosphatase 75 (38-126) U/L Total Protein 8.3 H (6.3-8.2) g/dL Albumin 4.4 (3.5-5.0) g/dL Globulin 3.9 (1.7-4.1) g/dL Albumin/Globulin Ratio 1.1 (1.0-2.8) Lipase 54 (23-300) U/L HCG, Quant < 2.4 mIU/mL Urine RBC (0-5/HPF) Urine WBC (0-5/HPF) Ur Squamous Epith Cells (0-5/HPF) Urine Bacteria (None) Hyaline Casts (None) Ur Culture Indicated? Ur Chlamydia DNA (PCR) Not detected N gonorrhoeae DNA (PCR) Not detected 10/17/22 Range/Units 16:55 WBC (4.5-11.0) X10^3/uL RBC (4.0-5.2) X10^6/uL Hgb (12.0-16.0) g/dL Hct (36-46) % MCV (80-100) fL MCH (26-34) PG MCHC (30-36) % RDW (11.6-14.8) % Plt Count (150-400) X10^3/uL Neut % (Auto) (50-75) % Lymph % (Auto) (25-40) % [place] % (Auto) (3-14) % Eos % (Auto) (2-4) % Baso % (Auto) (0-2) % Neut # (Auto) (1917-8910) /uL Lymph # (Auto) (6583-4834) /uL [place] # (Auto) (0-900) /uL Eos # (Auto) (0-450) /uL Baso # (Auto) (0-100) /uL Sodium (137-145) mmol/L Potassium (3.4-5.1) mmol/L Chloride (98-107) mmol/L Carbon Dioxide (22-32) mmol/L BUN (7-17) mg/dL Creatinine (0.52-1.04) mg/dL Estimated GFR (>60) mL/min BUN/Creatinine Ratio (6-22) Glucose (70-100) mg/dL Calcium (8.4-10.2) mg/dL Total Bilirubin (0.2-1.3) mg/dL AST (14-36) IU/L ALT (<35) IU/L Alkaline Phosphatase (38-126) U/L Total Protein (6.3-8.2) g/dL Albumin (3.5-5.0) g/dL Globulin (1.7-4.1) g/dL Albumin/Globulin Ratio (1.0-2.8) Lipase (23-300) U/L HCG, Quant mIU/mL Urine RBC 0-1/hpf (0-5/HPF) Urine WBC 0-1/hpf (0-5/HPF) Ur Squamous Epith Cells 1-5 /hpf (0-5/HPF) Urine Bacteria Few (2-10) H (None) Hyaline Casts 0-1/lpf (None) Ur Culture Indicated? Cult not indicated Ur Chlamydia DNA (PCR) N gonorrhoeae DNA (PCR) Point of care testing: Point of Care Testing Test Results Negative Urine Dip Bedside Urine Glucose Negative Bedside Urine Bilirubin - Negative Bedside Urine Ketone - Negative Urine Specific [place] 1.030 Bedside Urine Occult Blood - Negative Bedside Urine pH 6 Bedside Urine Protein +/- 15 Bedside Urine Urobilinogen - Negative Bedside Urine Nitrite - Negative Bedside Urine Leukocytes - Negative Esterase Discharge Plan Departure Patient Disposition: Home Clinical Impression: Left lower quadrant abdominal pain UTI (urinary tract infection) Qualifiers: Urinary tract infection type: acute cystitis Instructions: DI for Urinary Tract Infection (UTI) Activity Restrictions/Additional Instructions: *You have been diagnosed with a urinary tract infection. There is no evidence of a problem with any organs or other abnormalities on your workup today. You should start getting better soon, please eat food and drink plenty of water. I am sorry you are not feeling well. Please come back if you have fever, chills, vomiting, if you have worsening pain that does not get better. Take all of these pills over the next 5 days and you should get better. *What to do: *Please continue to take your regular medications as directed. [ x] New medication prescriptions sent to your pharmacy: [[facility] ] [ ] New medication written as a paper prescription [ ] No new medications given *Please call and schedule follow up with your primary care provider in 2-3 days, at least for an update. Let them know you were seen in the Emergency Department for the above problem. We will electronically transmit a record of today's note if your PCP or specialist is in our system. *If you do not have a primary care provider please contact [phone] to establish care with one of the [facility] primary care providers. *Return to the Emergency Department for worsening symptoms, inability to keep liquids down, fever greater than 101F, chills, or other concerning symptom. Prescriptions: No Action hydroxyzine HCl 25 mg tablet 25 mg PO QID PRN (Reason: anxiety) Qty: 30 0RF olanzapine 10 mg tablet 10 mg PO QAM olanzapine 20 mg tablet 20 mg PO BEDTIME permethrin 5 % cream 1 applic topical Q14D Qty: 60 0RF Rx Instructions: apply second treatment 14 days after first treatment if live lice remain lisinopril 20 mg tablet 20 mg PO DAILY Qty: 30 0RF Referrals: Francisco Lobo ARNP [Primary Care Provider] - Stand Alone Forms: Patient Portal/API <Cb Weber MD - Last Filed: 10/22/22 12:21> [facility]: I was immediately available in the department for consultation. ?This documentation has been reviewed and I agree with assessment and plan. Supervised by Cb Weber MD
[2022-10-17 17:08] LABS: Add Manual Diff / Slide Review NO; Basophils Absolute Auto 0 /uL (0-100); Basophils Percent Auto 0.5 % (0-2); Eosinophils Absolute Auto 0 /uL (0-450); Eosinophils Percent Auto 0.3 % (2-4); Hematocrit 37.3 % (36-46); Hemoglobin 12.5 g/dL (12.0-16.0); Lymphocytes Absolute Auto 1000 /uL (1100-4500); Lymphocytes Percent Auto 12.1 % (25-40); Mean Corpuscular HGB Conc 33.5 % (30-36); Mean Corpuscular Hemoglobin 26.9 PG (26-34); Mean Corpuscular Volume 80.3 fL (80-100); Monocytes Absolute Auto 600 /uL (0-900); Monocytes Percent Auto 6.5 % (3-14); Neutrophils Absolute Auto 6900 /uL (1500-7000); Neutrophils Percent Auto 80.6 % (50-75); Platelet Count 443 X10^3/uL (150-400); Red Blood Cell Count 4.65 X10^6/uL (4.0-5.2); Red Cell Distribution Width 15.9 % (11.6-14.8); White Blood Cell Count 8.6 X10^3/uL (4.5-11.0)
[2022-10-17] MEDS: ONDANSETRON 4 MG/2 ML INJ IV (17:11)
[2022-10-17] MEDS: KETOROLAC 30 MG/ML VIAL 15 MG IV (17:11)
[2022-10-17] MEDS: HYDROMORPHONE 0.5 MG INJ IV (17:12)
[2022-10-17 17:22] LABS: Alanine Aminotransferase 16 IU/L (<35); Albumin 4.4 g/dL (3.5-5.0); Albumin Globulin Ratio 1.1 (1.0-2.8); Alkaline Phosphatase 75 U/L (38-126); Aspartate Aminotransferase 21 IU/L (14-36); BUN Creatinine Ratio 19.3 (6-22); Bilirubin Total 0.6 mg/dL (0.2-1.3); Blood Urea Nitrogen 17 mg/dL (7-17); Calcium 8.9 mg/dL (8.4-10.2); Carbon Dioxide 31 mmol/L (22-32); Chloride 102 mmol/L (98-107); Estimated Glomerular Filt Rate > 60 mL/min (>60); Globulin 3.9 g/dL (1.7-4.1); Glucose 91 mg/dL (70-100); HEMOLYSIS < 15 (0-50); Lipase 54 U/L (23-300); Potassium 3.6 mmol/L (3.4-5.1); Sodium 141 mmol/L (137-145); Total Protein 8.3 g/dL (6.3-8.2)
[2022-10-17 17:32] LABS: Bacteria Urine Few (2-10); RBC Urine 0-1/HPF (0-5/HPF); Squamous Epithelial Cell Urine 1-5 /HPF (0-5/HPF); WBC Urine 0-1/HPF (0-5/HPF)
[2022-10-17 17:33] LABS: Culture Indicated Urine Cult Not Indicated; Hyaline Casts Urine 0-1/LPF
[2022-10-17 17:38] LABS: HCG Quantitative /Beta subunit < 2.4 mIU/mL
[2022-10-17 17:39] VITALS: BP 127/78; PULSE 92; RESP 16; TEMP 36.6; O2SAT 100
[2022-10-17] MEDS: NITROFURANTOIN ER 100 MG CAPSULE PO (17:41)
[2022-10-17 18:40] LABS: Urine N gonorrhoeae NOT DETECTED
[2022-10-17 18:43] LABS: Urine Chlamydia NOT DETECTED
== END 2022-10-17 17:58 | disposition home or self-care (01) ==
PROVIDERS: Emergency Provider Nurse Practitioner Critical Care Medicine; Family Provider Family Medicine; PCP Registered Nurse Diabetes Educator
DX: N30.90 Cystitis, unspecified without hematuria (principal); R10.32 Left lower quadrant pain
CPT/HCPCS: 36415; 80053; 81003; 81015; 81025; 83690; 84702; 85025; 87086; 87491; 87591; 96374; 96375; 99284; J1170; J1885; J2405

== ENCOUNTER 2022-10-23 13:24 | Emergency (ER) | payer SELFPAY | END 2022-10-23 15:05 | disposition left against medical advice (07) | PROVIDERS: Emergency Provider Emergency Medicine; Family Provider Family Medicine; PCP Registered Nurse Diabetes Educator ==

== ENCOUNTER 2022-10-31 16:39 | Emergency (ER) | payer MEDICAID, SELFPAY ==
--- NOTE | 2022-10-31 18:16 | PC.NURSE ---
Attempted to triage multiple times however pt keeps walking in and out of department into parking area. Has been instructed to remain for triage however she continues to leave department. Easy work of breathing, pink/warm/dry. No acute distress. Taking po well.
== END 2022-10-31 19:27 | disposition left against medical advice (07) ==
PROVIDERS: Emergency Provider Emergency Medicine; Family Provider Family Medicine; PCP Registered Nurse Diabetes Educator

== ENCOUNTER 2022-10-31 20:01 | Emergency (ER) | payer MEDICAID, SELFPAY ==
--- NOTE | 2022-10-31 20:14 | PC.NURSE ---
Pt observed in waiting room, does not appear in distress with even breathing and sitting in chair.
--- NOTE | 2022-10-31 20:40 | PC.NURSE ---
called patient to triage. at start of triage, she stated she had a cab coming and she doesn't feel well. was informed we wouldn't go any further with triage if she was going to leave with the cab. pt in and out of triage room a couple of times debating about staying until cab should up and pt left with cab.
== END 2022-10-31 20:43 | disposition left against medical advice (07) ==
LOC: ED 21:20
PROVIDERS: Emergency Provider Emergency Medicine; Family Provider Family Medicine; PCP Registered Nurse Diabetes Educator

== ENCOUNTER 2022-10-31 22:38 | Emergency (ER) | payer MEDICAID, SELFPAY ==
[2022-10-31 23:17] VITALS: BP 182/101; PULSE 105; RESP 16; TEMP 37.2; O2SAT 98; BMI 26.6
== END 2022-11-01 | disposition left against medical advice (07) ==
PROVIDERS: Emergency Provider Emergency Medicine; Family Provider Family Medicine; PCP Registered Nurse Diabetes Educator
DX: R68.89 Other general symptoms and signs (principal)
CPT/HCPCS: 99281

== ENCOUNTER 2022-11-01 04:50 | Emergency (ER) | payer MEDICAID, SELFPAY ==
--- NOTE | 2022-11-01 05:04 | ED.PSYCH ---
HPI - Psych General Chief Complaint: Psychiatric Symptoms Stated Complaint: feels ill Time Seen by Provider: 11/01/22 05:02 History of Present Illness HPI Narrative: Patient 42-year-old female history of polysubstance and schizophrenia. She is followed closely with the PACT team. She is been in and out of the ED throughout the evening this is the 1st time I have actually seen and spoken to her. She is homeless she reports that she just does not feel well. Difficult for her to voice exactly what that means. Says doesn't feel good. She is wanting inpatient psych treatment which is not an option. He reports that she just does not feel well but denies any chest pain or palpitations. No painful frequent urination. This seems to be her baseline I have seen her many times in the past. After further questioning she decides that she actually does not want any further evaluation. She left prior to vitals being taken. Vitals were taken earlier in the night when she checked it another time and they were within normal limits. Related Data Home Medications Medication Instructions Recorded Confirmed olanzapine 10 mg tablet 10 mg PO QAM 05/21/22 06/03/22 olanzapine 20 mg tablet 20 mg PO BEDTIME 05/21/22 06/03/22 Previous Rx's Medication Instructions Recorded hydroxyzine HCl 25 mg tablet 25 mg PO QID PRN anxiety #30 tabs 05/21/22 permethrin 5 % topical cream 1 applic topical Q14D 2 doses #60 06/11/22 grams lisinopril 20 mg tablet 20 mg PO DAILY #30 tabs 07/24/22 Allergies Allergy/AdvReac Type Severity Reaction Status Date / Time No Known Drug Allergies Allergy Verified 09/23/22 13:46 Review of Systems Review of Systems ROS Unobtainable: All systems reviewed & are unremarkable except as noted in HPI and below Patient History Medical History Drug abuse Homeless single person Methamphetamine abuse Schizophrenia Social History Smoking Status: Current every day smoker Smoking Status: Current every day smoker tobacco type: cigarettes alcohol intake frequency: holidays/special occasions only Substance Use Type: methamphetamine and unknown Exam Initial Vital Signs Initial Vital Signs: GENERAL: Disheveled at baseline good eye contact CARDIOVASCULAR: peripheral pulses in tact, cap refill <2 sec RESPIRATORY: No respiratory distress, speaks in full sentences without difficulty EXTREMITIES: Normal range of motion, no clubbing or edema. Neurovascularly intact NEUROLOGICAL: Cranial nerves II through XII grossly intact. Normal gait and speech. SKIN: Warm, dry, no petechiae, no rashes or lesions. Psych Appearance: disheveled Mental Status: mental status grossly normal Speech and Movement: speech and movement normal and speech clear Mood: paranoid Attitude: cooperative Thought Content: no homicidality and suicidality MDM - Psych MDM Narrative Medical decision making narrative: Patient is seem she seems to be at her baseline she is encouraged to follow-up with pact team. Offered to check urine for any type of infection which she did not want to do. She left prior to vitals being taken vitals earlier in the night were taken and normal. She left prior to any further workup or discharge instructions Discharge Plan Departure Patient Disposition: Home Clinical Impression: Chronic schizophrenic Prescriptions: No Action hydroxyzine HCl 25 mg tablet 25 mg PO QID PRN (Reason: anxiety) Qty: 30 0RF olanzapine 10 mg tablet 10 mg PO QAM olanzapine 20 mg tablet 20 mg PO BEDTIME permethrin 5 % cream 1 applic topical Q14D Qty: 60 0RF Rx Instructions: apply second treatment 14 days after first treatment if live lice remain lisinopril 20 mg tablet 20 mg PO DAILY Qty: 30 0RF Referrals: Francisco Lobo ARNP [Primary Care Provider] - Stand Alone Forms: Patient Portal/API
--- NOTE | 2022-11-01 05:16 | PC.NURSE ---
Pt chose to leave from triage room after seeing provider.
== END 2022-11-01 05:25 | disposition home or self-care (01) ==
PROVIDERS: Emergency Provider Emergency Medicine; Family Provider Family Medicine; PCP Registered Nurse Diabetes Educator
DX: F20.89 Other schizophrenia (principal)
CPT/HCPCS: 99281; 99282

== ENCOUNTER 2022-11-05 08:02 | Emergency (ER) | payer MEDICAID, SELFPAY ==
[2022-11-05 08:36] VITALS: BP 128/76; PULSE 90; RESP 20; TEMP 37.1; O2SAT 98
--- NOTE | 2022-11-05 08:42 | PC.NURSE ---
Dr. Coleman aware of the 2 events. pt walked out the ER lobby doors with her belongings per staff and security
== END 2022-11-05 08:42 | disposition left against medical advice (07) ==
PROVIDERS: Emergency Provider Emergency Medicine; Family Provider Family Medicine; PCP Registered Nurse Diabetes Educator

== ENCOUNTER 2022-11-05 18:19 | Emergency (ER) | payer MEDICAID, SELFPAY ==
[2022-11-05 18:52] VITALS: BP 148/84; PULSE 118; RESP 20; TEMP 36.1; O2SAT 98; BMI 26.2
[2022-11-05 23:46] VITALS: BP 164/95; PULSE 109; RESP 16; TEMP 36.8; O2SAT 99
--- NOTE | 2022-11-05 23:46 | ED.PSYCH ---
HPI - Psych <Isaiah Capps DO - Last Filed: 11/06/22 21:31> General Chief Complaint: Psychiatric Symptoms Stated Complaint: Paranoia, psychosis Time Seen by Provider: 11/05/22 23:33 Source: patient and EMS Mode of arrival: EMS History of Present Illness HPI Narrative: Patient is a 42-year-old female. She is well known to myself in this emergency department for history of drug abuse, schizophrenia and mental health issues. She is been here in the emergency department multiple times over the past week. She comes emergency department today by EMS for evaluation of paranoia and generally just not feeling very well. Patient does answer yes to most of the review of systems questions. Her presentation today is very similar to her prior presentations where she has issues with paranoia thinking that someone is following her and also stating ?I am sick? she denies suicidal ideation. She states she would like to be admitted to a mental health facility. Related Data Home Medications Medication Instructions Recorded Confirmed olanzapine 10 mg tablet 10 mg PO QAM 05/21/22 06/03/22 olanzapine 20 mg tablet 20 mg PO BEDTIME 05/21/22 06/03/22 Previous Rx's Medication Instructions Recorded hydroxyzine HCl 25 mg tablet 25 mg PO QID PRN anxiety #30 tabs 05/21/22 permethrin 5 % topical cream 1 applic topical Q14D 2 doses #60 06/11/22 grams lisinopril 20 mg tablet 20 mg PO DAILY #30 tabs 07/24/22 Allergies Allergy/AdvReac Type Severity Reaction Status Date / Time No Known Drug Allergies Allergy Verified 09/23/22 13:46 Review of Systems <DO Crissy Horton Last Filed: 11/06/22 21:31> Constitutional Comments: Endorses fevers Cardiovascular Comments: Endorses chest pain Respiratory Comments: Endorses shortness of breath Gastrointestinal Comments: Endorses abdominal pain Psychiatric Psychiatric: Reports system reviewed and no additional complaints, except as documented Patient History <DO Crissy Horton Last Filed: 11/06/22 21:31> Medical History Drug abuse Homeless single person Methamphetamine abuse Schizophrenia Social History Smoking Status: Current every day smoker Smoking Status: Current every day smoker tobacco type: cigarettes alcohol intake frequency: holidays/special occasions only Substance Use Type: methamphetamine and unknown Exam <Isaiah Capps DO - Last Filed: 11/06/22 21:31> Initial Vital Signs Initial Vital Signs: Vital Signs Temperature 97.0 F L 11/05/22 18:52 Pulse Rate 118 H 11/05/22 18:52 Respiratory Rate 20 11/05/22 18:52 Blood Pressure 148/84 H 11/05/22 18:52 Pulse Oximetry 98 11/05/22 18:52 Oxygen Delivery Method Room Air 11/05/22 18:52 Const General: disheveled (Baseline) HENMT Head: normal to inspection and normocephalic Resp Effort & Inspection: normal respiratory effort Cardio Rate: tachycardic Skin General: no rashes or lesions noted Neuro Other: Patient is alert and oriented. Does follow commands Extrem General: normal to inspection Psych Other: Patient is disheveled. Endorses paranoia. No suicidal ideation. Does have a flat affect <Kaela Watkins DO - Last Filed: 11/06/22 19:03> Initial Vital Signs Initial Vital Signs: Vital Signs Temperature 97.0 F L 11/05/22 18:52 Pulse Rate 118 H 11/05/22 18:52 Respiratory Rate 20 11/05/22 18:52 Blood Pressure 148/84 H 11/05/22 18:52 Pulse Oximetry 98 11/05/22 18:52 Oxygen Delivery Method Room Air 11/05/22 18:52 Course <Isaiah Capps DO - Last Filed: 11/06/22 21:31> Orders Ordered: Discontinued Medications Olanzapine (Olanzapine Odt 10 Mg Tab) 20 mg PO NOW ONE Stop: 11/06/22 00:15 Last Admin: 11/06/22 00:18 Dose: 20 mg Documented By: DAA Vital Signs Vital signs: Vital Signs - 8 hr 11/06/22 11:48 Pulse Rate 89 Respiratory Rate 18 Blood Pressure 146/82 H Pulse Oximetry 99 Oxygen Delivery Method Room Air <Kaela Watkins DO - Last Filed: 11/06/22 19:03> Orders Ordered: Discontinued Medications Olanzapine (Olanzapine Odt 10 Mg Tab) 20 mg PO NOW ONE Stop: 11/06/22 00:15 Last Admin: 11/06/22 00:18 Dose: 20 mg Documented By: DKB Vital Signs Vital signs: Vital Signs - 8 hr 11/06/22 11:48 Pulse Rate 89 Respiratory Rate 18 Blood Pressure 146/82 H Pulse Oximetry 99 Oxygen Delivery Method Room Air MDM - Psych <Isaiah Capps DO - Last Filed: 11/06/22 21:31> Lab Data Attestation: I reviewed the patient's lab results. 11/05/22 23:59 11/05/22 23:59 Labs: Lab Results 11/05/22 11/05/22 11/05/22 Range/Units 23:59 23:59 23:59 WBC 12.6 H (4.5-11.0) X10^3/uL RBC 3.89 L (4.0-5.2) X10^6/uL Hgb 10.4 L (12.0-16.0) g/dL Hct 31.3 L (36-46) % MCV 80.3 (80-100) fL MCH 26.6 (26-34) PG MCHC 33.2 (30-36) % RDW 16.8 H (11.6-14.8) % Plt Count 368 (150-400) X10^3/uL Neut % (Auto) 85.3 H (50-75) % Lymph % (Auto) 8.3 L (25-40) % [place] % (Auto) 5.9 (3-14) % Eos % (Auto) 0.0 L (2-4) % Baso % (Auto) 0.5 (0-2) % Neut # (Auto) 61163 H (2883-5845) /uL Lymph # (Auto) 1100 (1787-2081) /uL [place] # (Auto) 800 (0-900) /uL Eos # (Auto) 0 (0-450) /uL Baso # (Auto) 100 (0-100) /uL Sodium 135 L (137-145) mmol/L Potassium 3.7 (3.4-5.1) mmol/L Chloride 103 (98-107) mmol/L Carbon Dioxide 27 (22-32) mmol/L BUN 14 (7-17) mg/dL Creatinine 0.73 (0.52-1.04) mg/dL Estimated GFR > 60 (>60) mL/min BUN/Creatinine Ratio 19.2 (6-22) Glucose 111 H (70-100) mg/dL Calcium 8.2 L (8.4-10.2) mg/dL Magnesium 1.9 (1.6-2.3) mg/dL Total Bilirubin 0.6 (0.2-1.3) mg/dL AST 29 (14-36) IU/L ALT 19 (<35) IU/L Alkaline Phosphatase 76 (38-126) U/L Total Protein 7.1 (6.3-8.2) g/dL Albumin 3.8 (3.5-5.0) g/dL Globulin 3.3 (1.7-4.1) g/dL Albumin/Globulin Ratio 1.2 (1.0-2.8) Lipase 48 (23-300) U/L TSH 1.56 (0.47-4.68) uIU/mL Urine Test (Negative) Salicylates (<20) mg/dL U Opiates 300ng/mL cut (Negative) Ur Oxycodone Screen (Negative) Urine Methadone Screen (Negative) Acetaminophen < 10 (10-30) ug/mL Ur Barbiturates Screen (Negative) U Tricyclic Antidepress (Negative) Ur Phencyclidine Scrn (Negative) Ur Amphetamines Screen (Negative) U Methamphetamines Scrn (Negative) Ur MDMA Scrn (Ecstasy) (Negative) U Benzodiazepines Scrn (Negative) Urine Cocaine Screen (Negative) U Marijuana (THC) Screen (Negative) Ethyl Alcohol < 10 ( - 10) mg/dL SARS-CoV-2 (PCR) (Negative) 11/05/22 11/06/22 11/06/22 Range/Units 23:59 00:26 00:26 WBC (4.5-11.0) X10^3/uL RBC (4.0-5.2) X10^6/uL Hgb (12.0-16.0) g/dL Hct (36-46) % MCV (80-100) fL MCH (26-34) PG MCHC (30-36) % RDW (11.6-14.8) % Plt Count (150-400) X10^3/uL Neut % (Auto) (50-75) % Lymph % (Auto) (25-40) % [place] % (Auto) (3-14) % Eos % (Auto) (2-4) % Baso % (Auto) (0-2) % Neut # (Auto) (9795-4990) /uL Lymph # (Auto) (5488-8626) /uL [place] # (Auto) (0-900) /uL Eos # (Auto) (0-450) /uL Baso # (Auto) (0-100) /uL Sodium (137-145) mmol/L Potassium (3.4-5.1) mmol/L Chloride (98-107) mmol/L Carbon Dioxide (22-32) mmol/L BUN (7-17) mg/dL Creatinine (0.52-1.04) mg/dL Estimated GFR (>60) mL/min BUN/Creatinine Ratio (6-22) Glucose (70-100) mg/dL Calcium (8.4-10.2) mg/dL Magnesium (1.6-2.3) mg/dL Total Bilirubin (0.2-1.3) mg/dL AST (14-36) IU/L ALT (<35) IU/L Alkaline Phosphatase (38-126) U/L Total Protein (6.3-8.2) g/dL Albumin (3.5-5.0) g/dL Globulin (1.7-4.1) g/dL Albumin/Globulin Ratio (1.0-2.8) Lipase (23-300) U/L TSH (0.47-4.68) uIU/mL Urine Test Negative (Negative) Salicylates < 1.0 (<20) mg/dL U Opiates 300ng/mL cut Negative (Negative) Ur Oxycodone Screen Negative (Negative) Urine Methadone Screen Negative (Negative) Acetaminophen (10-30) ug/mL Ur Barbiturates Screen Negative (Negative) U Tricyclic Antidepress Negative (Negative) Ur Phencyclidine Scrn Negative (Negative) Ur Amphetamines Screen Positive H (Negative) U Methamphetamines Scrn Positive H (Negative) Ur MDMA Scrn (Ecstasy) Positive H (Negative) U Benzodiazepines Scrn Negative (Negative) Urine Cocaine Screen Negative (Negative) U Marijuana (THC) Screen Negative (Negative) Ethyl Alcohol ( - 10) mg/dL SARS-CoV-2 (PCR) (Negative) 11/06/22 Range/Units 02:53 WBC (4.5-11.0) X10^3/uL RBC (4.0-5.2) X10^6/uL Hgb (12.0-16.0) g/dL Hct (36-46) % MCV (80-100) fL MCH (26-34) PG MCHC (30-36) % RDW (11.6-14.8) % Plt Count (150-400) X10^3/uL Neut % (Auto) (50-75) % Lymph % (Auto) (25-40) % [place] % (Auto) (3-14) % Eos % (Auto) (2-4) % Baso % (Auto) (0-2) % Neut # (Auto) (2931-2002) /uL Lymph # (Auto) (5959-6068) /uL [place] # (Auto) (0-900) /uL Eos # (Auto) (0-450) /uL Baso # (Auto) (0-100) /uL Sodium (137-145) mmol/L Potassium (3.4-5.1) mmol/L Chloride (98-107) mmol/L Carbon Dioxide (22-32) mmol/L BUN (7-17) mg/dL Creatinine (0.52-1.04) mg/dL Estimated GFR (>60) mL/min BUN/Creatinine Ratio (6-22) Glucose (70-100) mg/dL Calcium (8.4-10.2) mg/dL Magnesium (1.6-2.3) mg/dL Total Bilirubin (0.2-1.3) mg/dL AST (14-36) IU/L ALT (<35) IU/L Alkaline Phosphatase (38-126) U/L Total Protein (6.3-8.2) g/dL Albumin (3.5-5.0) g/dL Globulin (1.7-4.1) g/dL Albumin/Globulin Ratio (1.0-2.8) Lipase (23-300) U/L TSH (0.47-4.68) uIU/mL Urine Test (Negative) Salicylates (<20) mg/dL U Opiates 300ng/mL cut (Negative) Ur Oxycodone Screen (Negative) Urine Methadone Screen (Negative) Acetaminophen (10-30) ug/mL Ur Barbiturates Screen (Negative) U Tricyclic Antidepress (Negative) Ur Phencyclidine Scrn (Negative) Ur Amphetamines Screen (Negative) U Methamphetamines Scrn (Negative) Ur MDMA Scrn (Ecstasy) (Negative) U Benzodiazepines Scrn (Negative) Urine Cocaine Screen (Negative) U Marijuana (THC) Screen (Negative) Ethyl Alcohol ( - 10) mg/dL SARS-CoV-2 (PCR) Negative (Negative) Point of Care Testing Test Results Negative Urine Dip Bedside Urine Glucose Negative Bedside Urine Bilirubin - Negative Bedside Urine Ketone - Negative Urine Specific [place] 1.020 Bedside Urine Occult Blood - Negative Bedside Urine pH 6.5 Bedside Urine Protein - Negative Bedside Urine Urobilinogen - Negative Bedside Urine Nitrite - Negative Bedside Urine Leukocytes - Negative Esterase MDM Narrative Medical decision making narrative: Patient is disheveled but this is baseline for her. She was calm. She denies SI. She states that she generally just does not feel very well and answers yes to most of the review of systems questions which is also baseline her however she states that she feels like she can not keep going in her current state of mental health and she is seeking assistance for admission to hospital. Patient is medically cleared. She is voluntary. Consult social work was placed. Care turned over to day provider to follow-up and disposition. <Kaela Watkins, DO - Last Filed: 11/06/22 19:03> Lab Data Labs: Lab Results 11/05/22 11/05/22 11/05/22 Range/Units 23:59 23:59 23:59 WBC 12.6 H (4.5-11.0) X10^3/uL RBC 3.89 L (4.0-5.2) X10^6/uL Hgb 10.4 L (12.0-16.0) g/dL Hct 31.3 L (36-46) % MCV 80.3 (80-100) fL MCH 26.6 (26-34) PG MCHC 33.2 (30-36) % RDW 16.8 H (11.6-14.8) % Plt Count 368 (150-400) X10^3/uL Neut % (Auto) 85.3 H (50-75) % Lymph % (Auto) 8.3 L (25-40) % [place] % (Auto) 5.9 (3-14) % Eos % (Auto) 0.0 L (2-4) % Baso % (Auto) 0.5 (0-2) % Neut # (Auto) 12296 H (3212-2246) /uL Lymph # (Auto) 1100 (8223-4745) /uL [place] # (Auto) 800 (0-900) /uL Eos # (Auto) 0 (0-450) /uL Baso # (Auto) 100 (0-100) /uL Sodium 135 L (137-145) mmol/L Potassium 3.7 (3.4-5.1) mmol/L Chloride 103 (98-107) mmol/L Carbon Dioxide 27 (22-32) mmol/L BUN 14 (7-17) mg/dL Creatinine 0.73 (0.52-1.04) mg/dL Estimated GFR > 60 (>60) mL/min BUN/Creatinine Ratio 19.2 (6-22) Glucose 111 H (70-100) mg/dL Calcium 8.2 L (8.4-10.2) mg/dL Magnesium 1.9 (1.6-2.3) mg/dL Total Bilirubin 0.6 (0.2-1.3) mg/dL AST 29 (14-36) IU/L ALT 19 (<35) IU/L Alkaline Phosphatase 76 (38-126) U/L Total Protein 7.1 (6.3-8.2) g/dL Albumin 3.8 (3.5-5.0) g/dL Globulin 3.3 (1.7-4.1) g/dL Albumin/Globulin Ratio 1.2 (1.0-2.8) Lipase 48 (23-300) U/L TSH 1.56 (0.47-4.68) uIU/mL Urine Test (Negative) Salicylates (<20) mg/dL U Opiates 300ng/mL cut (Negative) Ur Oxycodone Screen (Negative) Urine Methadone Screen (Negative) Acetaminophen < 10 (10-30) ug/mL Ur Barbiturates Screen (Negative) U Tricyclic Antidepress (Negative) Ur Phencyclidine Scrn (Negative) Ur Amphetamines Screen (Negative) U Methamphetamines Scrn (Negative) Ur MDMA Scrn (Ecstasy) (Negative) U Benzodiazepines Scrn (Negative) Urine Cocaine Screen (Negative) U Marijuana (THC) Screen (Negative) Ethyl Alcohol < 10 ( - 10) mg/dL SARS-CoV-2 (PCR) (Negative) 11/05/22 11/06/22 11/06/22 Range/Units 23:59 00:26 00:26 WBC (4.5-11.0) X10^3/uL RBC (4.0-5.2) X10^6/uL Hgb (12.0-16.0) g/dL Hct (36-46) % MCV (80-100) fL MCH (26-34) PG MCHC (30-36) % RDW (11.6-14.8) % Plt Count (150-400) X10^3/uL Neut % (Auto) (50-75) % Lymph % (Auto) (25-40) % [place] % (Auto) (3-14) % Eos % (Auto) (2-4) % Baso % (Auto) (0-2) % Neut # (Auto) (0369-1925) /uL Lymph # (Auto) (3052-3320) /uL [place] # (Auto) (0-900) /uL Eos # (Auto) (0-450) /uL Baso # (Auto) (0-100) /uL Sodium (137-145) mmol/L Potassium (3.4-5.1) mmol/L Chloride (98-107) mmol/L Carbon Dioxide (22-32) mmol/L BUN (7-17) mg/dL Creatinine (0.52-1.04) mg/dL Estimated GFR (>60) mL/min BUN/Creatinine Ratio (6-22) Glucose (70-100) mg/dL Calcium (8.4-10.2) mg/dL Magnesium (1.6-2.3) mg/dL Total Bilirubin (0.2-1.3) mg/dL AST (14-36) IU/L ALT (<35) IU/L Alkaline Phosphatase (38-126) U/L Total Protein (6.3-8.2) g/dL Albumin (3.5-5.0) g/dL Globulin (1.7-4.1) g/dL Albumin/Globulin Ratio (1.0-2.8) Lipase (23-300) U/L TSH (0.47-4.68) uIU/mL Urine Test Negative (Negative) Salicylates < 1.0 (<20) mg/dL U Opiates 300ng/mL cut Negative (Negative) Ur Oxycodone Screen Negative (Negative) Urine Methadone Screen Negative (Negative) Acetaminophen (10-30) ug/mL Ur Barbiturates Screen Negative (Negative) U Tricyclic Antidepress Negative (Negative) Ur Phencyclidine Scrn Negative (Negative) Ur Amphetamines Screen Positive H (Negative) U Methamphetamines Scrn Positive H (Negative) Ur MDMA Scrn (Ecstasy) Positive H (Negative) U Benzodiazepines Scrn Negative (Negative) Urine Cocaine Screen Negative (Negative) U Marijuana (THC) Screen Negative (Negative) Ethyl Alcohol ( - 10) mg/dL SARS-CoV-2 (PCR) (Negative) 11/06/22 Range/Units 02:53 WBC (4.5-11.0) X10^3/uL RBC (4.0-5.2) X10^6/uL Hgb (12.0-16.0) g/dL Hct (36-46) % MCV (80-100) fL MCH (26-34) PG MCHC (30-36) % RDW (11.6-14.8) % Plt Count (150-400) X10^3/uL Neut % (Auto) (50-75) % Lymph % (Auto) (25-40) % [place] % (Auto) (3-14) % Eos % (Auto) (2-4) % Baso % (Auto) (0-2) % Neut # (Auto) (2556-1616) /uL Lymph # (Auto) (7980-9922) /uL [place] # (Auto) (0-900) /uL Eos # (Auto) (0-450) /uL Baso # (Auto) (0-100) /uL Sodium (137-145) mmol/L Potassium (3.4-5.1) mmol/L Chloride (98-107) mmol/L Carbon Dioxide (22-32) mmol/L BUN (7-17) mg/dL Creatinine (0.52-1.04) mg/dL Estimated GFR (>60) mL/min BUN/Creatinine Ratio (6-22) Glucose (70-100) mg/dL Calcium (8.4-10.2) mg/dL Magnesium (1.6-2.3) mg/dL Total Bilirubin (0.2-1.3) mg/dL AST (14-36) IU/L ALT (<35) IU/L Alkaline Phosphatase (38-126) U/L Total Protein (6.3-8.2) g/dL Albumin (3.5-5.0) g/dL Globulin (1.7-4.1) g/dL Albumin/Globulin Ratio (1.0-2.8) Lipase (23-300) U/L TSH (0.47-4.68) uIU/mL Urine Test (Negative) Salicylates (<20) mg/dL U Opiates 300ng/mL cut (Negative) Ur Oxycodone Screen (Negative) Urine Methadone Screen (Negative) Acetaminophen (10-30) ug/mL Ur Barbiturates Screen (Negative) U Tricyclic Antidepress (Negative) Ur Phencyclidine Scrn (Negative) Ur Amphetamines Screen (Negative) U Methamphetamines Scrn (Negative) Ur MDMA Scrn (Ecstasy) (Negative) U Benzodiazepines Scrn (Negative) Urine Cocaine Screen (Negative) U Marijuana (THC) Screen (Negative) Ethyl Alcohol ( - 10) mg/dL SARS-CoV-2 (PCR) Negative (Negative) Point of Care Testing Test Results Negative Urine Dip Bedside Urine Glucose Negative Bedside Urine Bilirubin - Negative Bedside Urine Ketone - Negative Urine Specific [place] 1.020 Bedside Urine Occult Blood - Negative Bedside Urine pH 6.5 Bedside Urine Protein - Negative Bedside Urine Urobilinogen - Negative Bedside Urine Nitrite - Negative Bedside Urine Leukocytes - Negative Esterase MDM Narrative Medical decision making narrative: Patient is disheveled but this is baseline for her. She was calm. She denies SI. She states that she generally just does not feel very well and answers yes to most of the review of systems questions which is also baseline her however she states that she feels like she can not keep going in her current state of mental health and she is seeking assistance for admission to hospital. Patient is medically cleared. She is voluntary. Consult social work was placed. Care turned over to day provider to follow-up and disposition. Dr. Watkins patient signed out to me by Dr. Singh her seen evaluated patient myself. She sleeping most of the day woke up in the afternoon social work saw and evaluated her trying to get her to [facility] voluntarily. However now she feels like she is ready tell leave. Her demeanor does seem a little bit sad and more so than usual but denies any suicide or homicidal ideations at this time does not meet any sort of involuntary criteria she is supposed to go get her injection from the pact team. She left prior to her discharge papers Discharge Plan Departure Patient Disposition: Home Clinical Impression: Acute psychosis Instructions: DI for Psychosis Activity Restrictions/Additional Instructions: *You have been diagnosed with acute psychosis *What to do: *Continue to take medications as directed *Follow up with your primary care provider in 2-3 days or call [phone] *Return to ER if you should have or any new, worsening or concerning symptoms Prescriptions: No Action hydroxyzine HCl 25 mg tablet 25 mg PO QID PRN (Reason: anxiety) Qty: 30 0RF olanzapine 10 mg tablet 10 mg PO QAM olanzapine 20 mg tablet 20 mg PO BEDTIME permethrin 5 % cream 1 applic topical Q14D Qty: 60 0RF Rx Instructions: apply second treatment 14 days after first treatment if live lice remain lisinopril 20 mg tablet 20 mg PO DAILY Qty: 30 0RF Referrals: Francisco Lobo ARNP [Primary Care Provider] - Stand Alone Forms: Patient Portal/API
[2022-11-06 00:11] LABS: Add Manual Diff / Slide Review NO; Basophils Absolute Auto 100 /uL (0-100); Basophils Percent Auto 0.5 % (0-2); Eosinophils Absolute Auto 0 /uL (0-450); Hematocrit 31.3 % (36-46); Hemoglobin 10.4 g/dL (12.0-16.0); Lymphocytes Absolute Auto 1100 /uL (1100-4500); Lymphocytes Percent Auto 8.3 % (25-40); Mean Corpuscular HGB Conc 33.2 % (30-36); Mean Corpuscular Hemoglobin 26.6 PG (26-34); Mean Corpuscular Volume 80.3 fL (80-100); Monocytes Absolute Auto 800 /uL (0-900); Monocytes Percent Auto 5.9 % (3-14); Neutrophils Absolute Auto 10800 /uL (1500-7000); Neutrophils Percent Auto 85.3 % (50-75); Platelet Count 368 X10^3/uL (150-400); Red Blood Cell Count 3.89 X10^6/uL (4.0-5.2); Red Cell Distribution Width 16.8 % (11.6-14.8); White Blood Cell Count 12.6 X10^3/uL (4.5-11.0)
[2022-11-06] MEDS: OLANZapine ODT 10 MG TAB 20 MG PO (00:18)
[2022-11-06 00:19] LABS: Alanine Aminotransferase 19 IU/L (<35); Albumin 3.8 g/dL (3.5-5.0); Albumin Globulin Ratio 1.2 (1.0-2.8); Alkaline Phosphatase 76 U/L (38-126); Aspartate Aminotransferase 29 IU/L (14-36); BUN Creatinine Ratio 19.2 (6-22); Bilirubin Total 0.6 mg/dL (0.2-1.3); Blood Urea Nitrogen 14 mg/dL (7-17); Calcium 8.2 mg/dL (8.4-10.2); Carbon Dioxide 27 mmol/L (22-32); Chloride 103 mmol/L (98-107); Estimated Glomerular Filt Rate > 60 mL/min (>60); Globulin 3.3 g/dL (1.7-4.1); Glucose 111 mg/dL (70-100); HEMOLYSIS < 15 (0-50); Lipase 48 U/L (23-300); Magnesium 1.9 mg/dL (1.6-2.3); Potassium 3.7 mmol/L (3.4-5.1); Sodium 135 mmol/L (137-145); Total Protein 7.1 g/dL (6.3-8.2)
[2022-11-06 00:33] LABS: Pregnancy Test Urine Negative (Negative)
[2022-11-06 00:58] LABS: Acetaminophen < 10 ug/mL (10-30); Ethanol (ETOH) < 10 mg/dL; Salicylate < 1.0 mg/dL (<20)
[2022-11-06 01:04] LABS: Thyroid Stimulating Hormone 1.56 uIU/mL (0.47-4.68)
--- NOTE | 2022-11-06 01:16 | PC.NURSE ---
Pt has been in and out of her room multiple times, has been given a snack, went into lobby and even went out the front doors claiming she needed air. The rules of the ED have been explained to her, that she can not wander the ED and that if she leaves the building she is leaving AMA, she states that she feels like she wants inpatient tx for a couple of days, that she wants to say that she doesn't feel well but is unable to give further details of sx.
[2022-11-06 03:16] LABS: UR Morphine/Opiate cutoff 300 Negative (Negative); Ur Creatinine Normal (Normal); Ur Specific Gravity Normal (Normal); Urine Amphetamines Positive (Negative); Urine Barbiturates Negative (Negative); Urine Benzodiazepines Negative (Negative); Urine Cocaine Negative (Negative); Urine MDMA Positive (Negative); Urine Methadone Negative (Negative); Urine Methamphetamines Positive (Negative); Urine Oxycodone Negative (Negative); Urine Phencyclidine Negative (Negative); Urine Tetrahydrocannabinol Negative (Negative); Urine Tricyclic Antidepressant Negative (Negative); Urine pH Normal (Normal)
[2022-11-06 03:21] LABS: COVID19 -Nasal RAPID Negative (Negative)
[2022-11-06 08:16] VITALS: RESP 16
[2022-11-06 11:48] VITALS: BP 146/82; PULSE 89; RESP 18; O2SAT 99
--- NOTE | 2022-11-06 14:34 | CM.SWNOTE ---
Addendum entered by Roselyn Michel 11/06/22 14:53: UNSTACKER calls [facility] intake and updates them regarding patient's d/c to community. Roselyn Michel, [facility] Original Note: ED UNSTACKER Note Patient presents to ED multiple times last evening due to concern for not feeling well. Last night patient was requesting inpatient BH placement and patient engaged in medical clearance labs required to do so. It is reported that patient chose to come and go a few times before deciding to stay in ED to await BH placement. Patient has a history of 165 ED encounters within the last 12 months, a majority of presentations at this hospital resulting in patient leaving before being seen. Patient has several ED presentations at [facility] and [facility] as well. Patient is known to ED with known history of Schizophrenia and polysubstance use. Patient is positive for Amphetamines, Methamphetamines & Ecstasy per toxicology screen. Per recent conversation with PACT team, it was reported to UNSTACKER that patient has been having regular contact with patient. UNSTACKER calls PACT team twice requesting return call regarding patient It is reported by registration that patient does not have current Medicaid [facility] healthy options insurance, and patient's coverage lapsed in September 2022. During a majority of patient's stay in ED, patient was sleeping. When patient woke up, patient presents as A/Ox3, fatigued, responding to internal stimuli, poor eye contact, able to identify needs and ambulate independently. UNSTACKER calls [facility] regarding patient's insurance, it is reported that there system is down and patient's eligibility will not be determined for 1-5 days if patient does application via phone today. At this time when asked, patient endorsed she did not want to try to set up insurance via phone. UNSTACKER calls [facility], it is reported that they can review patient even if she is between insurance coverage. UNSTACKER faxes clinicals for review. UNSTACKER asks patient if she wants to pursue BH inpatient hospitalization, patient can not provide answer and states that she wants to leave. UNSTACKER encourages patient to wait for PACT team downtown where she normally meets them at this time of day. Patient chooses to d/c to community, ED provider is aware, it is determined that patient is safe to d/c. UNSTACKER calls PACT team and leaves VM regarding patient's encounter, concern for insurance lapse and that patient is choosing to leave hospital after attempt to seek voluntary placement. Plan: PACT team to f/u with patient, patient to d/c to community per patient's preference. Patient is medically clear to do so. Roselyn Michel, PUBLIC HEALTH DIETITIAN
== END 2022-11-06 14:43 | disposition home or self-care (01) ==
PROVIDERS: Emergency Medicine; Emergency Provider Emergency Medicine; Family Provider Family Medicine; PCP Registered Nurse Diabetes Educator
DX: F29 Unspecified psychosis not due to a substance or known physiological condition (principal); Z20.822 Contact with and (suspected) exposure to COVID-19
CPT/HCPCS: 36415; 80053; 80305; 80320; 80329; 81003; 81025; 83690; 83735; 84443; 85025; 87635; 99281; 99284; C9803; G0480

== ENCOUNTER 2022-11-06 18:18 | Emergency (ER) | payer MEDICAID, SELFPAY | END 2022-11-06 18:30 | disposition left against medical advice (07) | LOC: ED 18:45 | PROVIDERS: Emergency Provider Emergency Medicine; Family Provider Family Medicine; PCP Registered Nurse Diabetes Educator | CPT/HCPCS: 99281 ==

== ENCOUNTER 2022-11-06 20:25 | Emergency (ER) | payer MEDICAID, SELFPAY ==
[2022-11-06 20:33] VITALS: BP 166/91; PULSE 110; RESP 20; TEMP 37; O2SAT 97; BMI 21.5
== END 2022-11-06 23:43 | disposition left against medical advice (07) ==
PROVIDERS: Emergency Provider Emergency Medicine; Family Provider Family Medicine; PCP Registered Nurse Diabetes Educator

== ENCOUNTER 2022-11-07 00:39 | Emergency (ER) | payer MEDICAID, SELFPAY ==
[2022-11-07 01:02] VITALS: BP 151/91; PULSE 101; RESP 18; TEMP 36.6; O2SAT 99; BMI 56.9
--- NOTE | 2022-11-07 01:14 | ED.PSYCH ---
HPI - Psych General Chief Complaint: Psychiatric Symptoms Stated Complaint: not feeling well Time Seen by Provider: 11/07/22 01:04 Source: patient Mode of arrival: Ambulatory History of Present Illness HPI Narrative: Patient is a 42-year-old female. Disheveled. Well known to myself. This is her 8th visit in the past 7 days and her 3rd visit in the past 24 hours. The 1st 2 visits today patient left without being seen. The 2nd visit she was brought in by EMS but left before she was evaluated. This visit she did come in voluntarily. She has the chief complaint of ?not feeling well? this is a very common complaint for her. She can not get more specific than this. She was seen here in the emergency department by myself last evening asking for voluntary mental health placement. Was seen by social work but eventually left without actual placement. Related Data Home Medications Medication Instructions Recorded Confirmed olanzapine 10 mg tablet 10 mg PO QAM 05/21/22 06/03/22 olanzapine 20 mg tablet 20 mg PO BEDTIME 05/21/22 06/03/22 Previous Rx's Medication Instructions Recorded hydroxyzine HCl 25 mg tablet 25 mg PO QID PRN anxiety #30 tabs 05/21/22 permethrin 5 % topical cream 1 applic topical Q14D 2 doses #60 06/11/22 grams lisinopril 20 mg tablet 20 mg PO DAILY #30 tabs 07/24/22 Allergies Allergy/AdvReac Type Severity Reaction Status Date / Time No Known Drug Allergies Allergy Verified 09/23/22 13:46 Review of Systems Review of Systems Narrative: This evening patient's only complaint is ?not feeling well? Cardiovascular Comments: Denies chest pain Respiratory Comments: Denies shortness of breath Gastrointestinal Comments: Denies abdominal pain Patient History Medical History Drug abuse Homeless single person Methamphetamine abuse Schizophrenia Social History Smoking Status: Current every day smoker Smoking Status: Current every day smoker tobacco type: cigarettes alcohol intake frequency: holidays/special occasions only Substance Use Type: methamphetamine and unknown Exam Initial Vital Signs Initial Vital Signs: Vital Signs Temperature 97.8 F 11/07/22 01:02 Pulse Rate 101 H 11/07/22 01:02 Respiratory Rate 18 11/07/22 01:02 Blood Pressure 151/91 H 11/07/22 01:02 Pulse Oximetry 99 11/07/22 01:02 Oxygen Delivery Method Room Air 11/07/22 01:02 Const General: disheveled Resp Effort & Inspection: normal respiratory effort Cardio Rate: regular rate Neuro General: patient alert, patient awake and moves all extremities Extrem Other: No gross deformities Psych Other: No suicidal ideation Course Vital Signs Vital signs: Vital Signs - 8 hr 11/07/22 01:02 Temperature 97.8 F Pulse Rate 101 H Respiratory Rate 18 Blood Pressure 151/91 H Pulse Oximetry 99 Oxygen Delivery Method Room Air MDM - Psych MDM Narrative Medical decision making narrative: Claire is well known to myself in this emergency department. She has a history of being homeless, drug abuse and also schizophrenia. She denies suicidal ideation. She is disheveled but this is baseline for her. Patient has very vague symptoms of ?not feeling well? this is a very common presentation for her and she is difficulty expressing more so what this can be. I would a long discussion with Claire. We discussed why she went home today despite wanting to be admitted to the hospital. There is strong concern that the patient maybe using the statements of being voluntary in order to be able to stay in the emergency department overnight. She has done this multiple times and was allowed to stay in the emergency department but then left prior to placement being found in the morning. I advised Claire that the unfortunately given the time a day in the fact that we did not have social work available that we would not be able to provide any assistance for her this evening. Claire then got up and walked out of the exam room calmly without any discharge paperwork. Discharge Plan Departure Patient Disposition: Home Clinical Impression: Homeless single person Prescriptions: No Action hydroxyzine HCl 25 mg tablet 25 mg PO QID PRN (Reason: anxiety) Qty: 30 0RF olanzapine 10 mg tablet 10 mg PO QAM olanzapine 20 mg tablet 20 mg PO BEDTIME permethrin 5 % cream 1 applic topical Q14D Qty: 60 0RF Rx Instructions: apply second treatment 14 days after first treatment if live lice remain lisinopril 20 mg tablet 20 mg PO DAILY Qty: 30 0RF Referrals: Francisco Lobo ARNP [Primary Care Provider] - Stand Alone Forms: Patient Portal/API
== END 2022-11-07 01:10 | disposition home or self-care (01) ==
PROVIDERS: Emergency Provider Emergency Medicine; Family Provider Family Medicine; PCP Registered Nurse Diabetes Educator
DX: F29 Unspecified psychosis not due to a substance or known physiological condition (principal)
CPT/HCPCS: 99283

== ENCOUNTER 2022-11-12 18:45 | Emergency (ER) | payer MEDICAID, SELFPAY ==
[2022-11-12 19:53] VITALS: BP 135/86; PULSE 95; RESP 17; TEMP 36.5; O2SAT 100; BMI 26.6
--- NOTE | 2022-11-12 21:32 | ED_ITS ---
HPI - Psych General Chief Complaint: Psychiatric Symptoms Stated Complaint: Doesn't feel good, Heart hurts badly per pt Time Seen by Provider: 11/12/22 21:32 Source: patient Mode of arrival: Ambulatory History of Present Illness HPI Narrative: Patient is a 42-year-old female. She is well known to myself in this emergency department. She comes in the emergency department again this evening for similar complaints that she normally comes with. She states she is ?not feeling very well? it is difficult for her to expand much more on the symptoms. She is asking to sleep in the emergency department this evening. Related Data Home Medications Medication Instructions Recorded Confirmed olanzapine 10 mg tablet 10 mg PO QAM 05/21/22 06/03/22 olanzapine 20 mg tablet 20 mg PO BEDTIME 05/21/22 06/03/22 Previous Rx's Medication Instructions Recorded hydroxyzine HCl 25 mg tablet 25 mg PO QID PRN anxiety #30 tabs 05/21/22 permethrin 5 % topical cream 1 applic topical Q14D 2 doses #60 06/11/22 grams lisinopril 20 mg tablet 20 mg PO DAILY #30 tabs 07/24/22 Allergies Allergy/AdvReac Type Severity Reaction Status Date / Time No Known Drug Allergies Allergy Verified 09/23/22 13:46 Review of Systems Constitutional Constitutional: Reports system reviewed and no additional complaints, except as documented Gastrointestinal Gastrointestinal: Reports system reviewed and no additional complaints, except as documented Neurologic Neurologic: Reports system reviewed and no additional complaints, except as documented Psychiatric Psychiatric: Reports system reviewed and no additional complaints, except as documented Patient History Medical History Drug abuse Homeless single person Methamphetamine abuse Schizophrenia Social History Smoking Status: Current every day smoker Smoking Status: Current every day smoker tobacco type: cigarettes alcohol intake frequency: holidays/special occasions only Substance Use Type: methamphetamine and unknown Exam Initial Vital Signs Initial Vital Signs: Vital Signs Temperature 97.7 F 11/12/22 19:53 Pulse Rate 95 H 11/12/22 19:53 Respiratory Rate 17 11/12/22 19:53 Blood Pressure 135/86 11/12/22 19:53 Pulse Oximetry 100 11/12/22 19:53 Oxygen Delivery Method Room Air 11/12/22 19:53 Const General: disheveled [facility] Head: normal to inspection and normocephalic Resp Effort & Inspection: normal respiratory effort Cardio Rate: regular rate Psych Other: Patient is disheveled. She is calm. Not suicidal. Course Vital Signs Vital signs: Vital Signs - 8 hr 11/12/22 19:53 Temperature 97.7 F Pulse Rate 95 H Respiratory Rate 17 Blood Pressure 135/86 Pulse Oximetry 100 Oxygen Delivery Method Room Air MDM - Psych MDM Narrative Medical decision making narrative: Patient is at her baseline mental status and physical appearance. Informed the patient that she could not stay in the emergency department this evening. Patient states that she would like to be admitted to inpatient mental health facility. Unfortunately we have been down this road with Claire multiple times in the past. We have taken her on her word in his kept her here in the emergency department but then in the morning have her leave under her own cognitive since. She is been evaluated multiple times by social work and other community individuals. It is under my opinion and also social work's opinion that she is making the statements in order to be able to stay in the emergency department. I evaluated her last week for very similar symptoms. I told her that she could not stay in the emergency department that evening and that if she was really wanting to be admitted for mental health that she would need to come back when social work was available. She did not return to the emergency department according to my instructions. I had the same discussion with her this evening. Informed her that she could not stay in the emergency department. Informed her that I did not have social work available and that if she wanted to return on at around noon when social work was available that we could potentially try to help her find placement. Discharge Plan Departure Patient Disposition: Home Clinical Impression: Chronic schizophrenic Activity Restrictions/Additional Instructions: If you are truly interested in inpatient stay you need to return to the emergency department when social work is available. You can return on of this week in the early afternoon. Prescriptions: No Action hydroxyzine HCl 25 mg tablet 25 mg PO QID PRN (Reason: anxiety) Qty: 30 0RF olanzapine 10 mg tablet 10 mg PO QAM olanzapine 20 mg tablet 20 mg PO BEDTIME permethrin 5 % cream 1 applic topical Q14D Qty: 60 0RF Rx Instructions: apply second treatment 14 days after first treatment if live lice remain lisinopril 20 mg tablet 20 mg PO DAILY Qty: 30 0RF Referrals: Francisco Lobo ARNP [Primary Care Provider] - Stand Alone Forms: Patient Portal/API
== END 2022-11-12 21:42 | disposition home or self-care (01) ==
PROVIDERS: Emergency Provider Emergency Medicine; Family Provider Family Medicine; PCP Registered Nurse Diabetes Educator
DX: F20.9 Schizophrenia, unspecified (principal); R07.9 Chest pain, unspecified
CPT/HCPCS: 93005; 99283

== ENCOUNTER 2022-11-12 21:46 | Emergency (ER) | payer MEDICAID, SELFPAY ==
[2022-11-12 22:00] VITALS: BMI 27.3
--- NOTE | 2022-11-12 23:56 | ED.PSYCH ---
HPI - Psych General Chief Complaint: Psychiatric Symptoms Stated Complaint: not feeling well Time Seen by Provider: 11/12/22 23:56 Source: patient Mode of arrival: Ambulatory History of Present Illness HPI Narrative: Patient returns in the emergency department again just moments after being discharged stating that she still does not feel well. Related Data Home Medications Medication Instructions Recorded Confirmed olanzapine 10 mg tablet 10 mg PO QAM 05/21/22 06/03/22 olanzapine 20 mg tablet 20 mg PO BEDTIME 05/21/22 06/03/22 Previous Rx's Medication Instructions Recorded hydroxyzine HCl 25 mg tablet 25 mg PO QID PRN anxiety #30 tabs 05/21/22 permethrin 5 % topical cream 1 applic topical Q14D 2 doses #60 06/11/22 grams lisinopril 20 mg tablet 20 mg PO DAILY #30 tabs 07/24/22 Allergies Allergy/AdvReac Type Severity Reaction Status Date / Time No Known Drug Allergies Allergy Verified 09/23/22 13:46 Review of Systems Constitutional Constitutional: Reports system reviewed and no additional complaints, except as documented Psychiatric Psychiatric: Reports system reviewed and no additional complaints, except as documented Patient History Medical History Drug abuse Homeless single person Methamphetamine abuse Schizophrenia Social History Smoking Status: Current every day smoker Smoking Status: Current every day smoker tobacco type: cigarettes alcohol intake frequency: holidays/special occasions only Substance Use Type: methamphetamine and unknown Exam Const General: disheveled Psych Other: No suicidal ideation MDM - Psych MDM Narrative Medical decision making narrative: Than once again informed the patient that there was nothing that we could do for her this evening and that she needs to return to the emergency department when social work is available. She got up and walked out without her discharge instructions. Discharge Plan Departure Patient Disposition: Home Clinical Impression: Chronic schizophrenic Prescriptions: No Action hydroxyzine HCl 25 mg tablet 25 mg PO QID PRN (Reason: anxiety) Qty: 30 0RF olanzapine 10 mg tablet 10 mg PO QAM olanzapine 20 mg tablet 20 mg PO BEDTIME permethrin 5 % cream 1 applic topical Q14D Qty: 60 0RF Rx Instructions: apply second treatment 14 days after first treatment if live lice remain lisinopril 20 mg tablet 20 mg PO DAILY Qty: 30 0RF Referrals: Francisco Lobo ARNP [Primary Care Provider] - Stand Alone Forms: Patient Portal/API
== END 2022-11-13 00:11 | disposition home or self-care (01) ==
PROVIDERS: Emergency Provider Emergency Medicine; Family Provider Family Medicine; PCP Registered Nurse Diabetes Educator
DX: F20.9 Schizophrenia, unspecified (principal)
CPT/HCPCS: 99282; 99283

== ENCOUNTER 2022-12-05 13:54 | Emergency (ER) | payer MEDICAID, SELFPAY ==
--- NOTE | 2022-12-05 14:06 | PC.NURSE ---
Called for triage at 1405. Not by front door or either ED waiting room.
--- NOTE | 2022-12-05 14:23 | PC.NURSE ---
Attempted to find pt again for triage, at 1415 and now. Pt is not by front door, either ED waiting room, or in the waiting room down by main temporary receptionist.
--- NOTE | 2022-12-05 14:45 | PC.NURSE ---
Pt not present in waiting rooms or by front door when called for triage. Charge nurse aware.
--- NOTE | 2022-12-05 15:05 | PC.NURSE ---
Called again to triage and no answer from patient in all waiting areas.
== END 2022-12-05 15:06 | disposition left against medical advice (07) ==
PROVIDERS: Emergency Provider Emergency Medicine; Family Provider Family Medicine; PCP Registered Nurse Diabetes Educator

== ENCOUNTER 2022-12-10 01:00 | Emergency (ER) | payer MEDICAID, SELFPAY | END 2022-12-10 02:00 | disposition left against medical advice (07) | PROVIDERS: Emergency Provider Emergency Medicine; Family Provider Family Medicine; PCP Registered Nurse Diabetes Educator ==

== ENCOUNTER 2022-12-10 09:13 | Emergency (ER) | payer MEDICAID, SELFPAY ==
--- NOTE | 2022-12-10 09:22 | PC.NURSE ---
Pt walked out of triage room,pt pacing in lobby. Refused to come back into triage room
== END 2022-12-10 09:25 | disposition left against medical advice (07) ==
PROVIDERS: Emergency Provider Emergency Medicine; Family Provider Family Medicine; PCP Registered Nurse Diabetes Educator
CPT/HCPCS: 99281

== ENCOUNTER 2022-12-25 22:14 | Emergency (ER) | payer MEDICAID, SELFPAY ==
--- NOTE | 2022-12-25 22:20 | PC.NURSE ---
Pt left out the front doors before I could place the wrist band on her.
--- NOTE | 2022-12-25 22:25 | PC.NURSE ---
Called patient to triage, no answer
--- NOTE | 2022-12-25 22:30 | PC.NURSE ---
Pt left Hospital and got into a car after registration. The car left the hospital grounds with Pt @ [phone]
== END 2022-12-25 22:35 | disposition left against medical advice (07) ==
LOC: ED 22:41
PROVIDERS: Emergency Provider Emergency Medicine; Family Provider Family Medicine; PCP Registered Nurse Diabetes Educator

== ENCOUNTER 2022-12-27 01:13 | Emergency (ER) | payer OTHER, MEDICAID, SELFPAY ==
--- NOTE | 2022-12-27 01:27 | PC.NURSE ---
PT observed in waiting room, sitting in chair with no obvious difficulty breathing
[2022-12-27 03:26] VITALS: BP 139/82; PULSE 86; RESP 15; TEMP 37.1; O2SAT 97; BMI 26.6
[2022-12-27] MEDS: ONDANSETRON 4 MG ODT PREPACK 1 BOTTLE MISC (03:29)
--- NOTE | 2022-12-27 03:29 | ED.PSYCH ---
HPI - Psych General Chief Complaint: Psychiatric Symptoms Stated Complaint: feels aweful Time Seen by Provider: 12/27/22 01:45 History of Present Illness HPI Narrative: 42-year-old female with history of hypertension and schizophrenia as well as methamphetamine abuse known well to myself and staff presents with a chief complaint of not feeling good, she states that she threw up earlier tonight but no longer is feeling nauseated. She is very nonspecific and has little other complaint. She denies any suicidal or homicidal ideation. She states that she is been caring for herself well denies chest pain or shortness of breath. Related Data Home Medications Medication Instructions Recorded Confirmed olanzapine 10 mg tablet 10 mg PO QAM 05/21/22 06/03/22 olanzapine 20 mg tablet 20 mg PO BEDTIME 05/21/22 06/03/22 Previous Rx's Medication Instructions Recorded hydroxyzine HCl 25 mg tablet 25 mg PO QID PRN anxiety #30 tabs 05/21/22 permethrin 5 % topical cream 1 applic topical Q14D 2 doses #60 06/11/22 grams lisinopril 20 mg tablet 20 mg PO DAILY #30 tabs 07/24/22 olanzapine 10 mg tablet 10 mg PO DAILY #20 tabs 12/27/22 Allergies Allergy/AdvReac Type Severity Reaction Status Date / Time No Known Drug Allergies Allergy Verified 12/10/22 09:18 Review of Systems Review of Systems Narrative: GENERAL: Denies chills, fatigue, malaise, fever, sweats. HEENT: Denies sinus pain, ear pain, sore throat, difficulty swallowing, dizziness. RESPIRATORY: Denies dyspnea, cough, wheezing, hemoptysis, sputum. CARDIOVASCULAR: Denies chest pain, palpitations, orthopnea, edema, GASTROINTESTINAL: See HPI : Denies dysuria, frequency, incontinence, hematuria, urinary retention. MUSCULOSKELETAL: denies weakness, joint pain, or bony pain SKIN: Denies rash, skin lesions, or other NEUROLOGIC: Denies weakness, headache, numbness, change in speech, confusion, seizures, incoordination. PSYCHIATRIC: No concerning psychosocial issues. 12 point review of systems is negative except for those stated above Patient History Medical History Homeless single person Methamphetamine abuse Drug abuse Schizophrenia Social History Smoking Status: Current every day smoker Smoking Status: Current every day smoker tobacco type: cigarettes alcohol intake frequency: holidays/special occasions only Substance Use Type: methamphetamine and unknown Exam Narrative Exam Narrative: GEN: AOx3 and in mild distress EYES: Pupils are equal, round, and reactive to light and accommodation. Extraoccular muscles are intact bilaterally. There is no subconjunctival hemorrhage or exudate. CHEST: Lungs are clear to auscultation bilaterally and free of wheezes, rales, or rhonchi. Heart rate is regular rhythm, there are no murmurs, clicks, rubs, or gallops. There is no chest wall tenderness. ABD: Abdomen is soft and nontender. There is no guarding or rebound. Bowel sounds are normal in all 4 quadrants. There is no mass or organomegaly. EXT: Full painless ROM of all extremities with no loss of sensation or strength. SKIN: Warm, pink, and dry. No erythema or rash Course Orders Ordered: Discontinued Medications Ondansetron HCl (Ondansetron 4 Mg Odt Prepack) [facility] Stop: 12/27/22 03:28 MDM - Psych MDM Narrative Medical decision making narrative: [42] year old patient presents with an episode of vomiting Multiple etiologies for patient's symptoms considered including, but not limited to: [Viral versus bowel obstruction versus food-borne illness versus other] Prior Charts reviewed in our EMR Primary Historian: patient Patient's symptoms improved over duration of stay with above-stated therapies. Findings and discharge diagnosis discussed with patient/family followed by verbalization of understanding Return precautions discussed with patient/family whom verbalize understanding of diagnosis and plan Discharge Plan Departure Patient Disposition: Home Clinical Impression: Chronic schizophrenia, Vomiting Instructions: DI for Schizophrenia, DI for Vomiting -- Adult Activity Restrictions/Additional Instructions: *You have been diagnosed with [chronic schizophrenia and vomiting episode] *What to do: *Please continue to take your regular medications as directed. [ x] New medication prescriptions sent to your pharmacy: [[facility] ] [ ] New medication written as a paper prescription [ ] No new medications given *Please follow up with your primary care provider in 2-3 days, call for an appointment. Let them know you were seen in the Emergency Department and that we ask that you be seen in follow up. We will electronically transmit a record of today's note if your PCP is in our system *If you do not have a primary care provider please contact the [facility] Resource line at [phone]. They will ask some questions about your medical history and help get you set up with a doctor in the community. *Return to Emergency Department if you should have any new, worsening or concerning symptoms, such as [fever greater than 101 F, shaking chills, worsening pain, persistent vomiting or other bothersome symptoms] Prescriptions: New olanzapine 10 mg tablet 10 mg PO DAILY Qty: 20 0RF No Action hydroxyzine HCl 25 mg tablet 25 mg PO QID PRN (Reason: anxiety) Qty: 30 0RF olanzapine 10 mg tablet 10 mg PO QAM olanzapine 20 mg tablet 20 mg PO BEDTIME permethrin 5 % cream 1 applic topical Q14D Qty: 60 0RF Rx Instructions: apply second treatment 14 days after first treatment if live lice remain lisinopril 20 mg tablet 20 mg PO DAILY Qty: 30 0RF Referrals: Francisco Lobo ARNP [Primary Care Provider] - Stand Alone Forms: Patient Portal/API
== END 2022-12-27 03:39 | disposition home or self-care (01) ==
PROVIDERS: Emergency Provider Emergency Medicine; Family Provider Family Medicine; PCP Registered Nurse Diabetes Educator
DX: F20.9 Schizophrenia, unspecified (principal); R11.11 Vomiting without nausea
CPT/HCPCS: 99283

== ENCOUNTER 2022-12-28 03:49 | Emergency (ER) | payer OTHER, MEDICAID, SELFPAY ==
[2022-12-28 03:56] VITALS: BP 165/96; PULSE 108; RESP 18; TEMP 35.8; O2SAT 92; BMI 26.6
--- NOTE | 2022-12-28 04:02 | ED_ITS ---
HPI - Nausea/Vomiting/Diarrhea General Chief complaint: Nausea/Vomiting/Diarrhea Stated complaint: not feeling good Time Seen by Provider: 12/28/22 03:59 Source: patient Mode of arrival: Ambulatory History of Present Illness HPI Narrative: Patient 42-year-old female history of chronic schizophrenia methamphetamine abuse presenting today with not feeling well in nausea. She apparently was presented yesterday as well with similar complaints given Zofran and discharged. She is not actually vomiting. She denies pain. She says she just does not feel right. This is a frequent complaint appears. Her vitals are stable she is without fever. Related Data Home Medications Medication Instructions Recorded Confirmed olanzapine 10 mg tablet 10 mg PO QAM 05/21/22 06/03/22 olanzapine 20 mg tablet 20 mg PO BEDTIME 05/21/22 06/03/22 Previous Rx's Medication Instructions Recorded hydroxyzine HCl 25 mg tablet 25 mg PO QID PRN anxiety #30 tabs 05/21/22 permethrin 5 % topical cream 1 applic topical Q14D 2 doses #60 06/11/22 grams lisinopril 20 mg tablet 20 mg PO DAILY #30 tabs 07/24/22 olanzapine 10 mg tablet 10 mg PO DAILY #20 tabs 12/27/22 ondansetron 4 mg disintegrating 4 mg PO Q8H PRN nausea and 12/28/22 tablet vomiting #10 tabs Allergies Allergy/AdvReac Type Severity Reaction Status Date / Time No Known Drug Allergies Allergy Verified 12/10/22 09:18 Review of Systems Review of Systems ROS Unobtainable: All systems reviewed & are unremarkable except as noted in HPI and below Patient History Medical History Homeless single person Methamphetamine abuse Drug abuse Schizophrenia Social History Smoking Status: Current every day smoker Smoking Status: Current every day smoker tobacco type: cigarettes alcohol intake frequency: holidays/special occasions only Substance Use Type: methamphetamine and unknown Exam Initial Vital Signs Initial Vital Signs: Vital Signs Temperature 96.5 F L 12/28/22 03:56 Pulse Rate 108 H 12/28/22 03:56 Respiratory Rate 18 12/28/22 03:56 Blood Pressure 165/96 H 12/28/22 03:56 Pulse Oximetry 92 12/28/22 03:56 Oxygen Delivery Method Room Air 12/28/22 03:56 GENERAL: Alert disheveled 42-year-old appears at baseline CARDIOVASCULAR: peripheral pulses in tact, cap refill <2 sec RESPIRATORY: No respiratory distress, speaks in full sentences without difficulty ABDOMEN: Soft, nontender, no guarding or rebound, no distention no epigastric pain negative right upper quadrant pain negative Albarran's sign no lower abdominal pain EXTREMITIES: Normal range of motion, no clubbing or edema. Neurovascularly intact NEUROLOGICAL: Cranial nerves II through XII grossly intact. Normal gait and speech. SKIN: Warm, dry, no petechiae, no rashes or lesions. Course Orders Ordered: ED Orders 12/28/22 04:26 COVID19 -Nasal RAPID Stat Discontinued Medications Ondansetron HCl (Ondansetron 4 Mg Odt) 4 mg SL NOW ONE Stop: 12/28/22 04:15 Last Admin: 12/28/22 04:24 Dose: 4 mg Documented By: IDA Vital Signs Vital signs: Vital Signs - 8 hr 12/28/22 03:56 Temperature 96.5 F L Pulse Rate 108 H Respiratory Rate 18 Blood Pressure 165/96 H Pulse Oximetry 92 Oxygen Delivery Method Room Air MDM - Nausea/Vomiting/Diarrhea Lab Data Labs: Lab Results 12/28/22 Range/Units 04:26 SARS-CoV-2 (PCR) Negative (Negative) Point of Care Testing Test Results Negative Urine Dip Bedside Urine Glucose Negative Bedside Urine Bilirubin + 1 Bedside Urine Ketone - Negative Urine Specific [place] 1.030 Bedside Urine Occult Blood - Negative Bedside Urine pH 6.0 Bedside Urine Protein +/- 15 Bedside Urine Urobilinogen - Negative Bedside Urine Nitrite - Negative Bedside Urine Leukocytes - Negative Esterase MDM Narrative Medical decision making narrative: Patient 42-year-old well known to myself from this facility has had 170 visits in the year of 2022. She actually was not seen and evaluated here in November I suspect she was incarcerated at that time. Presents today with not feeling well in some feeling of nausea. She is no active vomiting abdomen has been reexamined twice and both times soft any epigastric or right pain. Urinalysis is negative she has negative test and COVID test is also negative. She is feeling better after Zofran. At this time she is not gravely disabled does not meet involuntary criteria. Feeling better after Zofran I have given her prescription for it. Discharge Plan Departure Patient Disposition: Home Clinical Impression: Nausea Instructions: DI for Nausea -- Adult Activity Restrictions/Additional Instructions: *You have been diagnosed with nausea *What to do: Increase fluids *Continue to take medications as directed Zofran 4 mg every 8 hours--> [facility] [place] *Follow up with your primary care provider in 2-3 days or call [phone] *Return to ER if you should have persistent vomiting abdominal or any new, worsening or concerning symptoms Prescriptions: New ondansetron 4 mg tablet,disintegrating 4 mg PO Q8H PRN (Reason: nausea and vomiting) Qty: 10 0RF No Action hydroxyzine HCl 25 mg tablet 25 mg PO QID PRN (Reason: anxiety) Qty: 30 0RF olanzapine 10 mg tablet 10 mg PO QAM olanzapine 20 mg tablet 20 mg PO BEDTIME olanzapine 10 mg tablet 10 mg PO DAILY Qty: 20 0RF permethrin 5 % cream 1 applic topical Q14D Qty: 60 0RF Rx Instructions: apply second treatment 14 days after first treatment if live lice remain lisinopril 20 mg tablet 20 mg PO DAILY Qty: 30 0RF Referrals: Francisco Lobo ARNP [Primary Care Provider] - Stand Alone Forms: Patient Portal/API
[2022-12-28] MEDS: ONDANSETRON 4 MG ODT SL (04:24)
[2022-12-28 04:52] LABS: COVID19 -Nasal RAPID Negative (Negative)
== END 2022-12-28 05:06 | disposition home or self-care (01) ==
PROVIDERS: Emergency Provider Emergency Medicine; Family Provider Family Medicine; PCP Registered Nurse Diabetes Educator
DX: R11.0 Nausea (principal)
CPT/HCPCS: 81003; 81025; 87635; 99283; C9803

== ENCOUNTER 2023-01-10 10:34 | Emergency (ER) | payer OTHER, MEDICAID, SELFPAY ==
--- NOTE | 2023-01-10 11:01 | PC.NURSE ---
Pt refusing testing, masking, po fluids/food.
[2023-01-10 11:04] VITALS: BP 164/94; PULSE 113; RESP 20; TEMP 38.8; O2SAT 96; BMI 29.7
--- NOTE | 2023-01-10 11:22 | ED_ITS ---
HPI - Fever General Chief Complaint: Fever Stated Complaint: Fever Time Seen by Provider: 01/10/23 11:05 Source: patient and EMS Mode of arrival: EMS History of Present Illness HPI Narrative: Patient 42-year-old female who is homeless methamphetamine abuse chronic schizophrenia well known to myself in this facility presents today by EMS with not feeling good and fever. She reports using meth within the last few hours she is febrile in the ED at 101. She is unclear when her fever started. She is not able to provide me with any symptoms. She does feel little bit nauseous abdomen is not significantly tender. She denies sore throat or cough. She overall appears not well. Related Data Home Medications Medication Instructions Recorded Confirmed olanzapine 10 mg tablet 10 mg PO QAM 05/21/22 06/03/22 olanzapine 20 mg tablet 20 mg PO BEDTIME 05/21/22 06/03/22 Previous Rx's Medication Instructions Recorded hydroxyzine HCl 25 mg tablet 25 mg PO QID PRN anxiety #30 tabs 05/21/22 permethrin 5 % topical cream 1 applic topical Q14D 2 doses #60 06/11/22 grams lisinopril 20 mg tablet 20 mg PO DAILY #30 tabs 07/24/22 olanzapine 10 mg tablet 10 mg PO DAILY #20 tabs 12/27/22 ondansetron 4 mg disintegrating 4 mg PO Q8H PRN nausea and 12/28/22 tablet vomiting #10 tabs cefdinir 300 mg capsule 300 mg PO Q12H #20 caps 01/10/23 Allergies Allergy/AdvReac Type Severity Reaction Status Date / Time No Known Drug Allergies Allergy Verified 12/10/22 09:18 Review of Systems Review of Systems ROS Unobtainable: All systems reviewed & are unremarkable except as noted in HPI and below Patient History Medical History Homeless single person Methamphetamine abuse Drug abuse Schizophrenia Social History Smoking Status: Current every day smoker Smoking Status: Current every day smoker tobacco type: cigarettes alcohol intake frequency: holidays/special occasions only Substance Use Type: methamphetamine and unknown Exam Initial Vital Signs Initial Vital Signs: Vital Signs Temperature 102 F H 01/10/23 11:04 Pulse Rate 113 H 01/10/23 11:04 Respiratory Rate 20 01/10/23 11:04 Blood Pressure 164/94 H 01/10/23 11:04 Pulse Oximetry 96 01/10/23 11:04 Oxygen Delivery Method Room Air 01/10/23 11:04 GENERAL: Disheveled appears unwell mildly diaphoretic HEENT: Head atraumatic,EOMI, pupils reactive, face symmetric, moist mucous membranes CARDIOVASCULAR: Regular rate and rhythm without murmurs, rubs or gallops. RESPIRATORY: Breath sounds equal bilaterally, no wheezes rales or rhonchi. ABDOMEN: Soft, nontender. Normoactive bowel sounds all 4 quadrants. No guarding or rebound. EXTREMITIES: Normal range of motion, no clubbing or edema. Neurovascularly intact NEUROLOGICAL: Moving all extremities SKIN: Warm, dry, no laceration, no petechiae, no rashes or lesions. No track garvey Course Orders Ordered: ED Orders 01/10/23 11:31 Blood Culture Stat 01/10/23 11:42 Chest [XR chest 1V] Stat 01/10/23 11:45 COVID19 -Nasal RAPID Stat 01/10/23 12:55 BNP [NT-proBNP (BNP-Adult 18+)] Stat Beta HCG, Quant [HCG Quantitative /Beta subunit] Stat CBC Auto Diff [Complete Blood Count AUTO DIFF] Stat CMP [Comprehensive Metabolic Panel] Stat Lactate (Lactic Acid) Stat Procalcitonin Stat Trop I [Troponin I] Stat Discontinued Medications Sodium Chloride (Normal Saline 0.9%) 1,000 mls @ 1,000 mls/hr IV BOLUS ONE Stop: 01/10/23 13:54 Last Infusion: 01/10/23 14:50 Dose: Infused Documented By: Admin: 01/10/23 13:36 Dose: 1,000 mls/hr Documented By: ELIS Ceftriaxone Sodium 1,000 mg/ (Sodium Chloride) 100 mls @ 200 mls/hr IV NOW ONE Stop: 01/10/23 14:36 Last Infusion: 01/10/23 15:14 Dose: Infused Documented By: Admin: 01/10/23 14:54 Dose: 200 mls/hr Documented By: ELIS Ketorolac Tromethamine (Ketorolac 30 Mg/Ml Vial) 15 mg IV NOW ONE Stop: 01/10/23 12:56 Last Admin: 01/10/23 13:38 Dose: 15 mg Documented By: ELIS Olanzapine (Olanzapine Odt 10 Mg Tab) 20 mg PO NOW ONE Stop: 01/10/23 12:56 Last Admin: 01/10/23 13:33 Dose: 20 mg Documented By: ELIS Vital Signs Vital signs: Vital Signs - 8 hr 01/10/23 11:04 Temperature 102 F H Pulse Rate 113 H Respiratory Rate 20 Blood Pressure 164/94 H Pulse Oximetry 96 Oxygen Delivery Method Room Air MDM - Fever Lab Data 01/10/23 12:55 01/10/23 12:55 Labs: Lab Results 01/10/23 01/10/23 Range/Units 11:45 12:55 WBC 13.9 H (4.5-11.0) X10^3/uL RBC 4.62 (4.0-5.2) X10^6/uL Hgb 12.6 (12.0-16.0) g/dL Hct 38.4 (36-46) % MCV 83.0 (80-100) fL MCH 27.2 (26-34) PG MCHC 32.8 (30-36) % RDW 18.5 H (11.6-14.8) % Plt Count 487 H (150-400) X10^3/uL Neut % (Auto) 93.0 H (50-75) % Lymph % (Auto) 3.9 L (25-40) % Carver % (Auto) 2.8 L (3-14) % Eos % (Auto) 0.0 L (2-4) % Baso % (Auto) 0.3 (0-2) % Neut # (Auto) 47035 H (4567-2974) /uL Lymph # (Auto) 500 L (4593-8176) /uL Carver # (Auto) 400 (0-900) /uL Eos # (Auto) 0 (0-450) /uL Baso # (Auto) 0 (0-100) /uL Sodium 140 (137-145) mmol/L Potassium 4.0 (3.4-5.1) mmol/L Chloride 101 (98-107) mmol/L Carbon Dioxide 27 (22-32) mmol/L BUN 25 H (7-17) mg/dL Creatinine 0.62 (0.52-1.04) mg/dL Estimated GFR > 60 (>60) mL/min BUN/Creatinine Ratio 40.3 H (6-22) Glucose 121 H (70-100) mg/dL Lactate 2.2 H (0.7-2.1) mmol/L Calcium 9.4 (8.4-10.2) mg/dL Total Bilirubin 0.8 (0.2-1.3) mg/dL AST 26 (14-36) IU/L ALT 17 (<35) IU/L Alkaline Phosphatase 66 (38-126) U/L Troponin I 0.036 H (0.01-0.034) ng/mL NT-Pro-B Natriuret Pep 760 H (<125) pg/mL Total Protein 8.1 (6.3-8.2) g/dL Albumin 4.7 (3.5-5.0) g/dL Globulin 3.4 (1.7-4.1) g/dL Albumin/Globulin Ratio 1.4 (1.0-2.8) Procalcitonin 0.05 (<0.5) ng/mL HCG, Quant < 2.4 mIU/mL SARS-CoV-2 (PCR) Negative (Negative) Imaging Data Chest x-ray: Radiologist's Impression: PROCEDURE: XR CHEST 1V INDICATIONS: fever TECHNIQUE: One view of the chest was acquired. COMPARISON: [facility], , XR CHEST 1V, 05/11/2022, 19:40. FINDINGS: Surgical changes and devices: None. Lungs and pleura: Lungs are clear. No pleural effusions or pneumothorax. Mediastinum: Mediastinal contours appear normal. Heart size is mildly enlarged. Bones and chest wall: No suspicious bony lesions. Overlying soft tissues appear unremarkable. IMPRESSION: Mild cardiomegaly. No acute pulmonary findings. Dictated by: Norma Gilliland M.D. on 01/10/2023 at 14:06 [facility] Narrative Medical decision making narrative: Patient 42-year-old female homeless chronic methamphetamine use with chronic schizophrenia presents today with generally feeling unwell she is found to be febrile and tachycardic. She initially was very resistant to have anything done. She is found incontinent of foul-smelling urine. We tried to change her clothes but she was unwilling to cooperate. We were able to talk her into COVID swab and blood work. Blood work does reveal mild leukocytosis of 13.9 previously she was 12.6 electrolytes are stable. She has mild elevated lactate 2.2. She needed some encouragement have a chest x-ray done as well which finally did show some mild cardiomegaly. Troponin and BNP were added. Troponin 0.036 with BNP of 746. 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 Procalcitonin 0.05 COVID test was negative. Tried multiple times for urinalysis to assess for UTI. Unable. She is given a dose of Rocephin in the ED. she continues to refuse care although we have done our best. She was given Zyprexa she felt like she needed it. She was asking to leave. She was able to stand up and walk by herself. She had 1 set of vitals temperature seem to go down she got Toradol. She refused any other vitals. I discussed with her that she is sick she needs antibiotics. 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 Did not want to give her Levaquin for possible prolonged QT and psych meds. She is given cefdinir. Unclear exactly what we are treating. She left prior to her paperwork being adopted. Discharge Plan Departure Patient Disposition: Home Clinical Impression: UTI (urinary tract infection) Instructions: DI for Urinary Tract Infection (UTI) Prescriptions: New cefdinir 300 mg capsule 300 mg PO Q12H Qty: 20 0RF No Action hydroxyzine HCl 25 mg tablet 25 mg PO QID PRN (Reason: anxiety) Qty: 30 0RF olanzapine 10 mg tablet 10 mg PO QAM olanzapine 20 mg tablet 20 mg PO BEDTIME olanzapine 10 mg tablet 10 mg PO DAILY Qty: 20 0RF ondansetron 4 mg tablet,disintegrating 4 mg PO Q8H PRN (Reason: nausea and vomiting) Qty: 10 0RF permethrin 5 % cream 1 applic topical Q14D Qty: 60 0RF Rx Instructions: apply second treatment 14 days after first treatment if live lice remain lisinopril 20 mg tablet 20 mg PO DAILY Qty: 30 0RF Referrals: Francisco Lobo ARNP [Primary Care Provider] - Stand Alone Forms: Patient Portal/API
--- NOTE | 2023-01-10 11:42 | DI.RAD.S_ITS ---
PROCEDURE: XR CHEST 1V INDICATIONS: fever TECHNIQUE: One view of the chest was acquired. COMPARISON: [facility], CR, XR CHEST 1V, 05/11/2022, 19:40. FINDINGS: Surgical changes and devices: None. Lungs and pleura: Lungs are clear. No pleural effusions or pneumothorax. Mediastinum: Mediastinal contours appear normal. Heart size is mildly enlarged. Bones and chest wall: No suspicious bony lesions. Overlying soft tissues appear unremarkable. IMPRESSION: Mild cardiomegaly. No acute pulmonary findings. Dictated by: Norma Gilliland M.D. on 01/10/2023 at 14:06 Approved by: Norma Gilliland M.D. on 01/10/2023 at 14:07
[2023-01-10 12:07] LABS: COVID19 -Nasal RAPID Negative (Negative)
--- NOTE | 2023-01-10 12:44 | PC.NURSE ---
Pt continues to decline all interventions.
[2023-01-10 13:05] LABS: Add Manual Diff / Slide Review NO; Basophils Absolute Auto 0 /uL (0-100); Basophils Percent Auto 0.3 % (0-2); Eosinophils Absolute Auto 0 /uL (0-450); Hematocrit 38.4 % (36-46); Hemoglobin 12.6 g/dL (12.0-16.0); Lymphocytes Absolute Auto 500 /uL (1100-4500); Lymphocytes Percent Auto 3.9 % (25-40); Mean Corpuscular HGB Conc 32.8 % (30-36); Mean Corpuscular Hemoglobin 27.2 PG (26-34); Monocytes Absolute Auto 400 /uL (0-900); Monocytes Percent Auto 2.8 % (3-14); Neutrophils Absolute Auto 12900 /uL (1500-7000); Platelet Count 487 X10^3/uL (150-400); Red Blood Cell Count 4.62 X10^6/uL (4.0-5.2); Red Cell Distribution Width 18.5 % (11.6-14.8); White Blood Cell Count 13.9 X10^3/uL (4.5-11.0)
--- NOTE | 2023-01-10 13:15 | PC.NURSE ---
This RN assumes care for patient, patient is disheveled, clothes are soiled. Patient refuses to get cleaned up and refuses this RN to assist. Patient refuses to allow xray be taken and vitals to be obtained.
[2023-01-10 13:16] LABS: Alanine Aminotransferase 17 IU/L (<35); Albumin 4.7 g/dL (3.5-5.0); Albumin Globulin Ratio 1.4 (1.0-2.8); Alkaline Phosphatase 66 U/L (38-126); Aspartate Aminotransferase 26 IU/L (14-36); BUN Creatinine Ratio 40.3 (6-22); Bilirubin Total 0.8 mg/dL (0.2-1.3); Blood Urea Nitrogen 25 mg/dL (7-17); Calcium 9.4 mg/dL (8.4-10.2); Carbon Dioxide 27 mmol/L (22-32); Chloride 101 mmol/L (98-107); Estimated Glomerular Filt Rate > 60 mL/min (>60); Globulin 3.4 g/dL (1.7-4.1); Glucose 121 mg/dL (70-100); HEMOLYSIS < 15 (0-50); Lactate (Lactic Acid) 2.2 mmol/L (0.7-2.1); Sodium 140 mmol/L (137-145); Total Protein 8.1 g/dL (6.3-8.2)
--- NOTE | 2023-01-10 13:30 | PC.NURSE ---
Patient uncooperative for assessment, does not answer questions and states I don't feel well.
[2023-01-10 13:32] LABS: Procalcitonin 0.05 ng/mL (<0.5)
[2023-01-10] MEDS: OLANZapine ODT 10 MG TAB 20 MG PO (13:33)
[2023-01-10] MEDS: SODIUM CHLORIDE 0.9% 1,000 ML 1000 ML IV (13:36)
[2023-01-10] MEDS: KETOROLAC 30 MG/ML VIAL 15 MG IV (13:38)
--- NOTE | 2023-01-10 14:08 | PC.NURSE ---
Patient lying on stretcher, refuses to have vitals obtained, and refuses to provide urine sample. Patient continues to mumble, and state I don't feel well, I want to go. Dr. Watkins notified.
--- NOTE | 2023-01-10 14:30 | PC.NURSE ---
Patient requesting to leave and states I don't feel well, I want to go. Dr. Watkins at bedside. Patient refuses to provide urine sample or allow vitals to be obtained.
[2023-01-10 14:34] LABS: Reflexed Lactate in 2 Hours Y
[2023-01-10 14:48] LABS: NT-proBNP (BNP-Adult 18+) 760 pg/mL (<125); Troponin I 0.036 ng/mL (0.01-0.034)
[2023-01-10] MEDS: cefTRIAXone 1,000 MG in SODIUM CHLORIDE 0.9% 100 ML 200 MG IV (14:54)
--- NOTE | 2023-01-10 15:14 | PC.NURSE ---
Patient getting agitated and repeating get me a wheelchair, I want to go. Dr. Watkins in room with this RN advising patient to stay for evaluation and treatment. Patient attempting to take IV out. This RN removed IV, charge hand aware. Patient ambulates to exit.
[2023-01-10 16:11] LABS: HCG Quantitative /Beta subunit < 2.4 mIU/mL
== END 2023-01-10 15:14 | disposition home or self-care (01) ==
PROVIDERS: Emergency Provider Emergency Medicine; Family Provider Family Medicine; PCP Registered Nurse Diabetes Educator
DX: N39.0 Urinary tract infection, site not specified (principal); Z20.822 Contact with and (suspected) exposure to COVID-19
CPT/HCPCS: 36415; 71045; 80053; 83605; 83880; 84145; 84484; 84702; 85025; 87040; 87635; 96361; 96365; 96375; 99284; C9803; J0696; J1885

== ENCOUNTER 2023-01-14 14:09 | Emergency (ER) | payer OTHER, MEDICAID, SELFPAY ==
[2023-01-14 14:23] VITALS: BP 162/89; PULSE 112; RESP 16; TEMP 37.9; O2SAT 98
--- NOTE | 2023-01-14 14:26 | DI.RAD.S_ITS ---
PROCEDURE: XR CHEST 1V INDICATIONS: cough TECHNIQUE: One view of the chest was acquired. COMPARISON: [facility], CR, XR CHEST 1V, 01/10/2023, 13:52. FINDINGS: Surgical changes and devices: None. Lungs and pleura: Lungs are clear. No pleural effusions or pneumothorax. Mediastinum: Mediastinal contours appear normal. Heart size is normal. Bones and chest wall: No suspicious bony lesions. Overlying soft tissues appear unremarkable. IMPRESSION: Portable chest within normal limits for age. Dictated by: Norma Gilliland M.D. on 01/14/2023 at 15:58 Approved by: Norma Gilliland M.D. on 01/14/2023 at 15:58
--- NOTE | 2023-01-14 14:28 | ED.WEAKNESS ---
HPI - Weakness General Chief complaint: Weakness Stated complaint: feeling like she's going to pass out Time Seen by Provider: 01/14/23 14:26 Source: patient Mode of arrival: Ambulatory History of Present Illness HPI Narrative: Patient feels dizzy weak tired. Feels nauseated but no vomiting. Denies any urinary changes. No urinary frequency urgency or dysuria. Denies any shortness of breath. Patient states she has no energy. Forehead temperature 100.2?. Patient states not had much of an appetite. Patient recently seen here with the last 2 weeks for UTI treatment. Patient in no distress, not toxic. Walking from waiting room into triage room, steady gait not ataxic. Related Data Home Medications Medication Instructions Recorded Confirmed olanzapine 10 mg tablet 10 mg PO QAM 05/21/22 06/03/22 olanzapine 20 mg tablet 20 mg PO BEDTIME 05/21/22 06/03/22 Previous Rx's Medication Instructions Recorded hydroxyzine HCl 25 mg tablet 25 mg PO QID PRN anxiety #30 tabs 05/21/22 permethrin 5 % topical cream 1 applic topical Q14D 2 doses #60 06/11/22 grams lisinopril 20 mg tablet 20 mg PO DAILY #30 tabs 07/24/22 olanzapine 10 mg tablet 10 mg PO DAILY #20 tabs 12/27/22 ondansetron 4 mg disintegrating 4 mg PO Q8H PRN nausea and 12/28/22 tablet vomiting #10 tabs cefdinir 300 mg capsule 300 mg PO Q12H #20 caps 01/10/23 Allergies Allergy/AdvReac Type Severity Reaction Status Date / Time No Known Drug Allergies Allergy Verified 12/10/22 09:18 Review of Systems Review of Systems Narrative: GENERAL: negative chills, positive fatigue, malaise, fever, sweats. HEENT: negative sinus pain, ear pain, sore throat RESPIRATORY: negative dyspnea, cough CARDIOVASCULAR: negative chest pain, palpitations GASTROINTESTINAL: negative nausea, vomiting, abdominal pain : negative dysuria, frequency, hematuria MUSCULOSKELETAL: negative muscle or bony pain SKIN: negative rash, skin lesions NEUROLOGIC: negative weakness, numbness ROS Unobtainable: All systems reviewed & are unremarkable except as noted in HPI and below Patient History Medical History Homeless single person Methamphetamine abuse Drug abuse Schizophrenia Social History Smoking Status: Current every day smoker Smoking Status: Current every day smoker tobacco type: cigarettes alcohol intake frequency: holidays/special occasions only Substance Use Type: methamphetamine and unknown Exam Narrative Exam Narrative: GENERAL: in no distress, not toxic not dyspneic HEAD: Normocephalic. EYES: Pupils equal round ENT: Mucous membranes moist. NECK: Trachea midline. CARDIOVASCULAR: Tachycardic Regular rate and rhythm RESPIRATORY: Clear to auscultation. Breath sounds equal bilaterally. No wheezes, rales, or rhonchi. Patient is speaking full sentences, full and equal lung sounds. No respiratory distress. GASTROINTESTINAL: Abdomen soft, non-tender EXTREMITIES: No gross deformities. BACK: No flank tenderness. NEURO: Patient awake alert oriented self date of and events bringing her here. SKIN: Warm and dry PSYCH: Not anxious, is cooperative Initial Vital Signs Initial Vital Signs: Vital Signs Temperature 100.2 F H 01/14/23 14:23 Pulse Rate 112 H 01/14/23 14:23 Respiratory Rate 16 01/14/23 14:23 Blood Pressure 162/89 H 01/14/23 14:23 Pulse Oximetry 98 01/14/23 14:23 Oxygen Delivery Method Room Air 01/14/23 14:23 Course Orders Ordered: ED Orders 01/14/23 14:26 XR chest 1V Stat 01/14/23 16:11 Respiratory Panel (Film Array) Stat Discontinued Medications Acetaminophen (Acetaminophen 325 Mg Tablet) 975 mg PO NOW ONE Stop: 01/14/23 14:27 Last Admin: 01/14/23 14:54 Dose: 975 mg Documented By: CORNELIUS Ondansetron HCl (Ondansetron 4 Mg Odt) 4 mg SL NOW ONE Stop: 01/14/23 14:27 Last Admin: 01/14/23 14:54 Dose: 4 mg Documented By: CORNELIUS Vital Signs Vital signs: Vital Signs - 8 hr 01/14/23 14:23 Temperature 100.2 F H Pulse Rate 112 H Respiratory Rate 16 Blood Pressure 162/89 H Pulse Oximetry 98 Oxygen Delivery Method Room Air MDM - Weakness Imaging Data Chest x-ray: Radiologist Impression: [address] [address] XRay Report Signed Patient: Claire Dangelo MR#: [id number] : 1980 Acct:[id number] Age/Sex: 42 / F Date of Service: 01/14/23 Loc: ED Accession Number: [id number] Procedure: XR chest 1V Ordering Provider: Cb Weber MD PROCEDURE: XR CHEST 1V INDICATIONS: cough TECHNIQUE: One view of the chest was acquired. COMPARISON: [facility], , XR CHEST 1V, 01/10/2023, 13:52. FINDINGS: Surgical changes and devices: None. Lungs and pleura: Lungs are clear. No pleural effusions or pneumothorax. Mediastinum: Mediastinal contours appear normal. Heart size is normal. Bones and chest wall: No suspicious bony lesions. Overlying soft tissues appear unremarkable. IMPRESSION: Portable chest within normal limits for age. Dictated by: Norma Gilliland M.D. on 01/14/2023 at 15:58 Approved by: Norma Gilliland M.D. on 01/14/2023 at 15:[address] [facility] Narrative Medical decision making narrative: Patient feels dizzy weak tired. Feels nauseated but no vomiting. Denies any urinary changes. No urinary frequency urgency or dysuria. Denies any shortness of breath. Patient states she has no energy. Forehead temperature 100.2?. Patient states not had much of an appetite. Patient recently seen here with the last 2 weeks for UTI treatment. Patient in no distress, not toxic. Walking from waiting room into triage room, steady gait not ataxic. After history and exam chest x-ray viral swab Tylenol Zofran MDM CC: Weakness fatigue dizziness Complicating co-morbidities: Homeless, recent seen for UTI Data collected from: Patient Medical records reviewed: ER visit here January 10, 2023, 4 days ago, prescription for cefdinir Differential considered: Includes but not limited to UTI viral syndrome pneumonia Exam documented above, pertinent findings include: Clear and equal lung sounds Lab Test results independently reviewed as above. Pertinent findings: Viral swab Imaging studies independently reviewed: Chest x-ray no acute finding Consultations: None indicated Treatments: Tylenol Zofran Re-evaluations: 4:25 p.m.. Patient eloped from the department. Did not inform staff or myself that she was leaving. Discussion: Patient eloped without informing staff. Patient refused viral nasal swab. Diagnosis: Fever Discharge Plan Departure Patient Disposition: Elopement Clinical Impression: Fever Qualifiers: Fever type: unspecified Qualified Code(s): R50.9 - Fever, unspecified Prescriptions: No Action hydroxyzine HCl 25 mg tablet 25 mg PO QID PRN (Reason: anxiety) Qty: 30 0RF olanzapine 10 mg tablet 10 mg PO QAM olanzapine 20 mg tablet 20 mg PO BEDTIME olanzapine 10 mg tablet 10 mg PO DAILY Qty: 20 0RF ondansetron 4 mg tablet,disintegrating 4 mg PO Q8H PRN (Reason: nausea and vomiting) Qty: 10 0RF cefdinir 300 mg capsule 300 mg PO Q12H Qty: 20 0RF permethrin 5 % cream 1 applic topical Q14D Qty: 60 0RF Rx Instructions: apply second treatment 14 days after first treatment if live lice remain lisinopril 20 mg tablet 20 mg PO DAILY Qty: 30 0RF Referrals: Francisco Lobo ARNP [Primary Care Provider] -
[2023-01-14] MEDS: ONDANSETRON 4 MG ODT SL (14:54)
[2023-01-14] MEDS: ACETAMINOPHEN 325 MG TABLET 975 MG PO (14:54)
--- NOTE | 2023-01-14 15:06 | PC.NURSE ---
RN attempted to respiratory panel pt, and pt refused. RN explained importance of doing respiratory panel. Pt still refusing.
== END 2023-01-14 16:22 | disposition left against medical advice (07) ==
PROVIDERS: Emergency Provider Emergency Medicine; Family Provider Family Medicine; PCP Registered Nurse Diabetes Educator
DX: R50.9 Fever, unspecified (principal)
CPT/HCPCS: 71045; 99283